=== PATIENT | female | born 1950 | race African-American/Black ===

== ENCOUNTER 2017-06-17 08:59 | Day surgery (SDC) | payer OTHER, BC ==
[2017-06-15 15:40] VITALS: BMI 25.8
[~2017-06-17 08:59] MED LIST: ACETAMINOPHEN 325 MG TABLET (FP) PO PRN
[2017-06-17] MEDS ORDERED: CYCLOPENTOLATE HCL 1% OPHTH SOLN 2 ML BOTTLE ONE (09:16)
[2017-06-17] MEDS ORDERED: TROPICAMIDE 1% OPHTH SOLN 15 ML BOTTLE ONE (09:16)
[2017-06-17] MEDS ORDERED: PHENYLEPHRINE 2.5% OPHTH SOLN 15 ML BOTTLE ONE (09:16)
[2017-06-17] MEDS ORDERED: FLURBIPROFEN 0.03% OPHTH SOLN 2.5 ML BOTTLE ONE (09:16)
[2017-06-17] MEDS ORDERED: CIPROFLOXACIN 0.3% EYE DROPS 5 ML BOTTLE ONE (09:16)
[2017-06-17] MEDS: FLURBIPROFEN 0.03% OPHTH SOLN 2.5 ML BOTTLE OP SCH ×2 (09:50→09:55)
[2017-06-17] MEDS: CYCLOPENTOLATE HCL 1% OPHTH SOLN 2 ML BOTTLE OP SCH ×2 (09:50→09:55)
[2017-06-17] MEDS: CIPROFLOXACIN HCL 0.3% OPHTH 2.5ML BOTTLE OP SCH ×2 (09:50→09:55)
[2017-06-17] MEDS: TROPICAMIDE 1% OPHTH SOLN 15 ML BOTTLE OP SCH ×2 (09:50→09:55)
[2017-06-17] MEDS: PHENYLEPHRINE 2.5% OPHTH SOLN 15 ML BOTTLE OP SCH ×2 (09:50→09:55)
[2017-06-17] MEDS ORDERED: TETRACAINE 0.5% OPHTH SOLN 2 ML BOTTLE OS ONE (10:04)
[2017-06-17] MEDS ORDERED: POVIDONE-IODINE 5% OPHTHALMIC PREP 30 ML SOLUTION OS ONE (10:05)
[2017-06-17] MEDS ORDERED: MIDAZOLAM HCL 2 MG/2 ML SINGLE DOSE VIAL ONE (10:05)
[2017-06-17] MEDS ORDERED: BSS (NA/CA/MG/K) BALANCED SALT SOLUTION OPHTH SOLN 15 ML BOTTLE OS ONE (10:13)
[2017-06-17] MEDS ORDERED: LIDOCAINE HCL 1% PRESERVATIVE FREE - 30ML VIAL IO ONE (10:13)
[2017-06-17] MEDS ORDERED: CHONDROITIN SU A/HYALUR SOD 1 KIT IO ONE (10:13)
[2017-06-17] MEDS ORDERED: EPINEPHrine/PF 1 MG/1 ML (1:1,000) AMPULE IO ONE (10:18)
[2017-06-17 10:56] VITALS: TEMP 98.1
[2017-06-17 14:35] VITALS: BP 157/82; PULSE 66
--- NOTE | 2017-06-18 09:28 | SPEC ---
DATE OF OPERATION: 06/17/2017 OPERATION: Phacoemulsification with posterior chamber intraocular lens implantation, left eye. Lens used [id number], 26.0 Diopter power, Serial No. [id number]. PREOPERATIVE DIAGNOSIS: Cataract, left eye. POSTOPERATIVE DIAGNOSIS: Cataract, left eye. SURGEON: Faisal Baltazar M.D. ANESTHESIA: Topical MAC. COMPLICATIONS: None. PROCEDURE: The patient was brought to the operating room and correctly identified along with the operative site and the correct intraocular lens you. The patient was then prepped and draped in the usual sterile fashion including 5% Betadine solution in the conjunctival sac and an eyelid drape. An eyelid speculum was then placed in the eye. A paracentesis port was created and approximately 0.5 mL of preservative free Lidocaine was then injected into the eye. Viscoelastic was then injected to inflate the anterior chamber. A temporal clear corneal wound was created. A continuous circular capsulorrhexis was performed. The nucleus was then hydrodissected with BSS and removed with phacoemulsification. The remaining cortical material was irrigated and aspirated. Viscoelastic was injected to inflate the capsular bag and the intraocular lens was then implanted into the capsular bag. The remaining Viscoelastic was irrigated and aspirated from the eye. The IOL was noted to be well centered and completely covered by the anterior capsulorrhexis. Topical vancomycin was placed and the eye patched and shielded. All wounds were tested and found to be watertight. No suture was placed. The eye was then shielded. The patient was then discharged from the operating room in stable condition. FAISAL BALTAZAR M.D. [id number]
== END 2017-06-17 11:30 | disposition home or self-care (01) ==
LOC: JASU-SURG 08:59
PROVIDERS: ATTEND Ophthalmology
PROC: 08RK3JZ Replacement of Left Lens with Synthetic Substitute, Percutaneous Approach (ICD-10-PCS; principal; 2017-06-17 10:00)
DX: H26.9 Unspecified cataract (principal)

== ENCOUNTER 2017-07-08 09:33 | Day surgery (SDC) | payer OTHER, BC ==
[2017-07-02 11:53] VITALS: BMI 28.3
[~2017-07-08 09:33] MED LIST changes: +CIPROFLOXACIN HCL 0.3% OPHTH 2.5ML BOTTLE OP SCH; +CYCLOPENTOLATE HCL 1% OPHTH SOLN 2 ML BOTTLE OP SCH; +FLURBIPROFEN 0.03% OPHTH SOLN 2.5 ML BOTTLE OP SCH; +PHENYLEPHRINE 2.5% OPHTH SOLN 15 ML BOTTLE OP SCH; +TROPICAMIDE 1% OPHTH SOLN 15 ML BOTTLE OP SCH
[2017-07-08] MEDS ORDERED: CIPROFLOXACIN 0.3% EYE DROPS 5 ML BOTTLE ONE (09:49)
[2017-07-08] MEDS ORDERED: TROPICAMIDE 1% OPHTH SOLN 15 ML BOTTLE ONE (09:49)
[2017-07-08] MEDS ORDERED: CYCLOPENTOLATE HCL 1% OPHTH SOLN 2 ML BOTTLE ONE (09:49)
[2017-07-08] MEDS ORDERED: FLURBIPROFEN 0.03% OPHTH SOLN 2.5 ML BOTTLE ONE (09:50)
[2017-07-08] MEDS ORDERED: PHENYLEPHRINE 2.5% OPHTH SOLN 15 ML BOTTLE ONE (09:50)
[2017-07-08 09:55] VITALS: TEMP 97.6
[2017-07-08] MEDS ORDERED: FLURBIPROFEN 0.03% OPHTH SOLN 2.5 ML BOTTLE OD ONE ×3 (10:45→11:05)
[2017-07-08] MEDS ORDERED: PHENYLEPHRINE 2.5% OPHTH SOLN 15 ML BOTTLE OD ONE ×3 (10:45→11:05)
[2017-07-08] MEDS ORDERED: TROPICAMIDE 1% OPHTH SOLN 15 ML BOTTLE OD ONE ×3 (10:45→11:05)
[2017-07-08] MEDS ORDERED: CIPROFLOXACIN HCL 0.3% OPHTH 2.5ML BOTTLE OD ONE ×3 (10:45→11:05)
[2017-07-08] MEDS ORDERED: CYCLOPENTOLATE HCL 1% OPHTH SOLN 2 ML BOTTLE OD ONE ×3 (10:45→11:05)
[2017-07-08] MEDS ORDERED: LIDOCAINE HCL/PF 1% SDV 5ML VIAL ONE (11:34)
[2017-07-08] MEDS ORDERED: TETRACAINE 0.5% OPHTH SOLN 2 ML BOTTLE ONE (11:35)
[2017-07-08] MEDS ORDERED: MIDAZOLAM HCL 2 MG/2 ML SINGLE DOSE VIAL ONE (11:43)
[2017-07-08] MEDS ORDERED: VANCOMYCIN 500 MG VIAL (RESTRICTED TO ID ONLY) ONE (11:53)
[2017-07-08] MEDS ORDERED: WATER FOR INJ,STERILE 10 ML ONE (11:54)
[2017-07-08] MEDS ORDERED: TETRACAINE 0.5% OPHTH SOLN 2 ML BOTTLE TP ONE (11:56)
[2017-07-08] MEDS ORDERED: LIDOCAINE HCL 1% PRESERVATIVE FREE - 30ML VIAL IO ONE (12:02)
[2017-07-08] MEDS ORDERED: CHONDROITIN SU A/HYALUR SOD 1 KIT IO ONE (12:04)
[2017-07-08 13:56] VITALS: BP 161/72; PULSE 73
--- NOTE | 2017-07-08 14:15 | SPEC ---
DATE OF SURGERY: 07/08/2017 OPERATION: Phacoemulsification of right cataract with posterior chamber intraocular lens implantation, right eye. Lens used [id number], 26.0 diopter power, Serial No. [id number]. PREOPERATIVE DIAGNOSIS: Cataract, right eye. POSTOPERATIVE DIAGNOSIS: Cataract, right eye. SURGEON: Faisal Baltazar M.D. ANESTHESIA: Topical MAC. COMPLICATIONS: None. PROCEDURE: The patient was brought to the operating room and correctly identified along with the operative site and the correct intraocular lens you. The patient was then prepped and draped in the usual sterile fashion including 5% Betadine solution in the conjunctival sac and an eyelid drape. An eyelid speculum was then placed in the eye. A paracentesis port was created and approximately 0.5 mL of preservative free Lidocaine was then injected into the eye. Viscoelastic was then injected to inflate the anterior chamber. A temporal clear corneal wound was created. A continuous circular capsulorrhexis was performed. The nucleus was then hydrodissected with BSS and removed with phacoemulsification. The remaining cortical material was irrigated and aspirated. Viscoelastic was injected to inflate the capsular bag and the intraocular lens was then implanted into the capsular bag. The remaining Viscoelastic was irrigated and aspirated from the eye. The IOL was noted to be well centered and completely covered by the anterior capsulorrhexis. Topical vancomycin was placed and the eye patched and shielded. All wounds were tested and found to be watertight. No suture was placed. The eye was then shielded. The patient was then discharged from the operating room in stable condition. FAISAL BALTAZAR M.D. [id number]
== END 2017-07-08 13:25 | disposition home or self-care (01) ==
LOC: JASU-SURG 09:33
PROVIDERS: ATTEND Ophthalmology
PROC: 08RJ3JZ Replacement of Right Lens with Synthetic Substitute, Percutaneous Approach (ICD-10-PCS; principal; 2017-07-08 12:00)
DX: H26.9 Unspecified cataract (principal)

== ENCOUNTER 2019-06-10 08:16 | Day surgery (SDC) | payer OTHER, BC ==
[2019-06-09 17:22] VITALS: BMI 25.7
--- NOTE | 2019-06-10 08:06 | HP ---
Satellite PMH - Chief Complaint Chief Complaint: right humerus fx - Past Medical History Allergies/Adverse Reactions: Allergies Allergy/AdvReac Type Severity Reaction Status Date / Time No Known Allergies Allergy Verified 06/09/19 17:22 - Current Medications Current Medications: Home Medications Medication Instructions Recorded Amlodipine Besylate/Benazepril 1 cap PO DAILY 06/15/17 [Lotrel 5-10 mg Capsule] Atorvastatin Ca [Lipitor] 40 mg PO HS 06/15/17 Metoprolol Succinate [Toprol Xl] 50 mg PO DAILY 06/15/17 Sitagliptin Phos/Metformin HCl 1 each PO BID 06/15/17 [Janumet 50-1,000 mg Tablet] Aspirin Coated [Ecotrin -] 81 mg PO ASDIR 07/02/17 Oxycodone HCl/Acetaminophen 1 - 2 tab PO Q6H #30 tab MDD 6 06/10/19 [Percocet 5-325 mg Tablet] Satellite Physical Exam - Physical Examination General Appearance: Well Nourished, Well Developed, Alert & Oriented x3 ENT: Clear Lung: Normal air movement Extremities: Other (right humerus- + swelliing, + ttp, decr rom, nvi, xrays show pathologic humeral shaft fx) Neurological: Intact, Alert, Oriented Satellite Impression/Plan - Impression/Plan Impression: right pathologic humeral shaft fx Operative Procedure: right humerus IM ángel Date to be Performed: 06/10/19
[2019-06-10] MEDS ORDERED: MIDAZOLAM HCL 2 MG/2 ML SINGLE DOSE VIAL ONE ×2 (09:46)
[2019-06-10] MEDS ORDERED: DEXAMETHASONE SOD PHOSPHATE/PF 10 MG/ML SDV ONE (09:49)
[2019-06-10] MEDS ORDERED: ROCURONIUM BROMIDE 50 MG/5 ML SYRINGE ONE (10:17)
[2019-06-10] MEDS ORDERED: PROPOFOL 20 ML ONE (10:17)
[2019-06-10] MEDS ORDERED: ceFAZolin SODIUM 1 GM VIAL IVPB ONE (10:35)
[2019-06-10] MEDS ORDERED: NEOSTIGMINE METHYLSULFATE 0.5 MG/ML - 10 ML MDV ONE (11:49)
[2019-06-10] MEDS ORDERED: DEXAMETHASONE SOD PHOSPHATE 4 MG/1 ML VIAL ONE (11:49)
[2019-06-10] MEDS ORDERED: GLYCOPYRROLATE 0.2 MG/1 ML VIAL ONE (11:49)
--- NOTE | 2019-06-10 12:01 | OP ---
Operative Note - Note: Operative Date: 06/10/19 ([facility]) Pre-Operative Diagnosis: right pathologic humeral shaft fx Operation: right humerus open bone biopsy, IM ángel Post-Operative Diagnosis: Same as Pre-op Surgeon: Christian Arenas Salt Maker: Carlos Nathan Anesthesiologist/BOBBIN DOFFER: Shreya Son MD Anesthesia: General, Local Specimens Removed: bone biopsy, canal reamings Estimated Blood Loss (mls): 50
[2019-06-10] MEDS ORDERED: PROMETHAZINE HCL 25 MG/1 ML VIAL IVPB PRN (12:18)
[2019-06-10] MEDS ORDERED: oxyCODONE HCL 5 MG TABLET PO PRN (12:18)
[2019-06-10] MEDS ORDERED: ONDANSETRON 4 MG/2 ML VIAL IVPUSH PRN (12:18)
[2019-06-10] MEDS ORDERED: LACTATED RINGERS SOLUTION 1,000 ML IV SCH (12:30)
[2019-06-10] MEDS ORDERED: ceFAZolin 2 GRAM PREMIX BAG IVPB ONE (15:00)
[2019-06-10 20:13] VITALS: BP 138/81; PULSE 83; TEMP 98.1
== END 2019-06-10 18:30 | disposition home or self-care (01) ==
LOC: JASU-SURG 08:16
PROVIDERS: ATTEND Orthopaedic Surgery
PROC: 0PBF0ZX Excision of Right Humeral Shaft, Open Approach, Diagnostic (ICD-10-PCS; 2019-06-10)
PROC: 0PSF06Z Reposition Right Humeral Shaft with Intramedullary Internal Fixation Device, Open Approach (ICD-10-PCS; principal; 2019-06-10 10:54)
DX: M84.421A Pathological fracture, right humerus, initial encounter for fracture (principal)
CPT/HCPCS: 20245; 24516; C1713; 76000-TC-FY; 82962; 94760

== ENCOUNTER 2020-01-03 08:58 | Inpatient (IN) | payer OTHER, BC ==
--- NOTE | 2020-01-03 09:02 | PDOC ---
Rapid Medical Evaluation Time Seen by Provider: 01/03/20 09:01 Medical Evaluation: Allergies Allergy/AdvReac Type Severity Reaction Status Date / Time No Known Allergies Allergy Verified 06/09/19 17:22 01/03/20 09:01 CC: sent by dr white for elevated calciuma and multiple fractures in the spine. Pt denies injury but states is unable to ambulate due to the pain Exam: vss Plan: iv, labs Discharge Disposition - Diagnosis Spine fracture - Referrals - Patient Instructions - Post Discharge Activity
[2020-01-03] MEDS ORDERED: morphine CARPU-JECT 2 MG/1 ML DISP.SYRIN IVPUSH ONE (09:08)
--- NOTE | 2020-01-03 10:04 | PDOC ---
History of Present Illness - General Chief Complaint: Bone Injury Stated Complaint: SENT BY Time Seen by Provider: 01/03/20 09:01 History Source: Patient Exam Limitations: No Limitations - History of Present Illness Initial Comments: 01/03/20 09:57 69 PMH of HTN, HLD, DM, recently diagnosed MM (follows with Dr. Lerma, no treatment started) presents to the ED under the direction of Dr Lerma for multiple T-L spine compression fractures and back pain. Pt states the pain is located midline T spine-L spine, started 3 weeks ago and progressively worsened. States over the last 1 week she has been unable to ambulate due to significant pain. Pt also admits to some loss of urine over the past 1 week. Pt denies weakness/numbness into her lower ext, denies incontinence or retention of stool, denies saddle anesthesia,denies abdominal pain. Pt denies CP, SOB, F/C/N/V, sick contacts, calf swelling, calf tenderness or recent travel. Past History - Medical History Allergies/Adverse Reactions: Allergies Allergy/AdvReac Type Severity Reaction Status Date / Time No Known Allergies Allergy Verified 01/03/20 10:49 Home Medications: Ambulatory Orders Amlodipine Besylate/Benazepril [Lotrel 5-10 mg Capsule] 1 cap PO DAILY 06/15/17 Atorvastatin Ca [Lipitor] 40 mg PO HS 06/15/17 Metoprolol Succinate [Toprol Xl] 50 mg PO DAILY 06/15/17 Sitagliptin Phos/Metformin HCl [Janumet 50-1,000 mg Tablet] 1 each PO BID 06/15/17 Aspirin Coated [Ecotrin -] 81 mg PO ASDIR 07/02/17 Ibuprofen [Motrin -] 400 mg PO PRN 01/03/20 Anemia: No Asthma: No Cancer: Yes Cardiac Disorders: No CVA: No COPD: No CHF: No Dementia: No Diabetes: Yes GI Disorders: No Disorders: No HTN: Yes Hypercholesterolemia: Yes Liver Disease: No Seizures: No Thyroid Disease: No - Surgical History Abdominal Surgery: No Appendectomy: No Cholecystectomy: Yes Lung Surgery: No Neurologic Surgery: No Orthopedic Surgery: No - Psycho-Social/Smoking History Smoking History: Never smoked Have you smoked in the past 12 months: No - Substance Abuse Hx (Audit-C & DAST Scrn) How often the patient has a drink containing alcohol: Never Score: In Men: 4 or > Positive; In Women: 3 or > Positive: 0 Screen Result (Pos requires Nsg. Audit-10AR): Negative In the last yr the pt used illegal drug/Rx for NonMed reason: No Score: Yes response is considered Positive: 0 Screen Result (Positive result requires Nsg. DAST-10): Negative Review of Systems - Review of Systems Constitutional: Yes: Symptoms Reported HEENTM: Yes: Symptoms Reported Respiratory: Yes: Symptoms reported Cardiac (ROS): Yes: Symptoms Reported ABD/GI: Yes: Symptoms Reported : Yes: Symptoms Reported Musculoskeletal: Yes: Symptoms Reported Integumentary: Yes: Symptoms Reported Neurological: Yes: Symptoms reported *Physical Exam - Vital Signs Last Vital Signs Temp Pulse Resp BP Pulse Ox 98.3 F 96 H 18 196/86 H 96 01/03/20 09:02 01/03/20 09:02 01/03/20 09:02 01/03/20 09:02 01/03/20 09:02 - Physical Exam General Appearance: Yes: Nourished, Appropriately Dressed, Apparent Distress HEENT: positive: EOMI Neck: positive: Supple. negative: Carotid bruit Respiratory/Chest: positive: Lungs Clear, Normal Breath Sounds. negative: Respiratory Distress, Accessory Muscle Use, Rapid RR, Crackles, Rales, Rhonchi, Stridor, Wheezing Cardiovascular: positive: Regular Rhythm, Regular Rate, S1, S2. negative: Edema, JVD, Murmur Vascular Pulses: Dorsalis-Pedis (R): 4+, Doralis-Pedis (L): 4+ Gastrointestinal/Abdominal: positive: Flat, Soft. negative: Pulsatile Mass, Protuberent, Distended, Guarding, Rebound, Tenderness Musculoskeletal: positive: Vertebral Tenderness (T5-Coccyx). negative: CVA Tenderness Extremity: positive: Normal Capillary Refill, Normal Inspection, Normal Range of Motion Integumentary: positive: Normal Color, Dry, Warm Neurologic: positive: Fully Oriented, Alert, Normal Mood/Affect, Normal Response, Motor Strength 5/5, Other (no saddle anesthesia, rectal tone normal, sensation and strength intact and equal bilateral lowr ext). negative: Sensory Deficit, Confused, Disoriented ED Treatment Course - LABORATORY CBC & Chemistry Diagram: 01/03/20 10:00 01/03/20 10:00 - RADIOLOGY Radiology Studies Ordered: Category Date Time Status CHEST X-RAY PORTABLE* [RAD] Stat Radiology 01/03/20 09:52 Ordered Medical Decision Making - Medical Decision Making 01/03/20 12:04 69 PMH of HTN, HLD, DM, recently diagnosed MM (follows with Dr. Lerma, no treatment started) presents to the ED under the direction of Dr Lerma for multiple T-L spine compression fractures and back pain. Pt states the pain is located midline T spine-L spine, started 3 weeks ago and progressively worsened. States over the last 1 week she has been unable to ambulate due to significant pain. Pt also admits to some loss of urine over the past 1 week. Pt denies weakness/numbness into her lower ext, denies incontinence or retention of stool, denies saddle anesthesia,denies abdominal pain. Pt denies CP, SOB, F/C/N/V, sick contacts, calf swelling, calf tenderness or recent travel. vitals stable See MRI report 2 mg Morphine given, pain controlled labs sent and will control pt pain along with speaking with Dr. Lerma Labs show corrected Ca 13.4, recent labs also show Ca over 12. Will hydrate and discuss with primary team Florentin Morrell contacted, states Dr. Chase will see the patient in the hospital for hemonc and Rad Onc will be consulted, also states NS at a rate of 200 ml/hour for hypercalcemia should be given Discussed case in its entirety with Dr. Mackenzie in [place] who also reviewed images, states that there is no surgical intervention required at this time. The patient urinating on herself is likely a result of pain and difficulty ambulating in time to the bathroom No saddle anesthesia, 5/5 strenth and sensation bilateral lower ext, normal rectal tone Pt accepted for admission Discharge - Discharge Information Problems reviewed: Yes Clinical Impression/Diagnosis: Spine fracture - Admission Yes - Follow up/Referral Referrals: Ofelia Will [Primary Care Provider] - - Patient Discharge Instructions - Post Discharge Activity
[2020-01-03] MEDS ORDERED: MORPHINE SULFATE 2 MG/ML VIAL ONE (10:06)
[2020-01-03 10:16] LABS: EOS % 0.1 % (0-4.5); HEMATOCRIT 25.3 % (32.4-45.2); HEMOGLOBIN 8.4 GM/dL (10.7-15.3); MCH 28.7 pg (25.7-33.7); MCHC 33.3 g/dl (32.0-36.0); MEAN CELL VOLUME 86.1 fl (80-96); MEAN PLT VOLUME 7.2 fl (7.5-11.1); MONO % 7.6 % (3.8-10.2); NEUT % 77.3 % (42.8-82.8); PLATELET COUNT 283 K/MM3 (134-434); RBC 2.94 M/mm3 (3.60-5.2); RDW 15.4 % (11.6-15.6); WHITE BLOOD COUNT 9.5 K/mm3 (4.0-10.0)
[2020-01-03 10:23] LABS: INR 1.03 (0.83-1.09); PROTHROMBIN TIME (PATIENT) 12.2 SEC (9.7-13.0)
[2020-01-03 10:44] LABS: ALBUMIN 3.3 g/dl (3.4-5.0); BILIRUBIN,TOTAL 0.3 mg/dL (0.2-1); BLOOD UREA NITROGEN 24.4 mg/dL (7-18); CALCIUM 12.8 mg/dL (8.5-10.1); CREATININE 1.2 mg/dL (0.55-1.3); POTASSIUM 3.3 mmol/L (3.5-5.1); TOT PROT 8.4 g/dl (6.4-8.2)
--- NOTE | 2020-01-03 10:54 | PDOC ---
Documentation entered by Salomon Fishman SCRIBE, acting as scribe for Mireille Emery MD. Mireille Emery MD: This documentation has been prepared by the Kye turpin Xhesika, SCRIBE, under my direction and personally reviewed by me in its entirety. I confirm that the documentation accurately reflects all work, treatment, procedures, and medical decision making performed by me. Attending Attestation - Resident Resident Name: Clyde Eastman - ED Attending Attestation I have performed the following: I have examined & evaluated the patient, The case was reviewed & discussed with the resident, I agree w/resident's findings & plan, Exceptions are as noted - HPI HPI: 01/03/20 09:37 The patient is a 69y/o F with a PMH of HTN, HLD, DM, recently diagnosed multiple myeloma (follows with Dr. Lerma) who presents to the ED advised by Dr. Lerma for midline back pain. Pt states she had a MRI done 2 days ago that showed, T4,T11, L4-L5 compression fractures. Pt reports 1 week of urinary frequency and incontinence. Pt states she has not been able to ambulate secondary to the pain. The patient denies chest pain, shortness of breath, headache and dizziness. Denies fever, chills, cough, nausea, vomiting, diarrhea and constipation. Denies dysuria and hematuria. Allergies: NKDA PCP: Neema Booker Oncologist: Dr. Lerma - Physicial Exam PE: 01/03/20 10:41 Agree with resident exam - Medical Decision Making 01/03/20 10:41 69yo F with MMP including multiple myeloma presents to the ED with newly diagnosed thoracolumbar pathologic fractures and possible hypercalcemia No cord compression on recent MRI, but pt reporting urine urgency vs incontinence Pt sent to ED by Dr. Lerma Vitals with hypertension, likely 2/2 pain Plan to repeat labs, check UA, control pain, discuss with neurosurgery and Dr. Lerma Ca corrected is 13.4, fluids started at 200cc/hr Recent blood work with calcium only slightly lower indicative of slow rising level - as such will hold off on bisphosphnates/calcitonin in absence of AMS or other sxs. Pt currently being evaluated by Dr. Finley Case discussed with Dr. Mccurdy, imaging reviewed with him in consultation Recommends non-operative management, pain control Recommendations relayed to hospitalist Pt admitted for further mgmt/w/u Case discussed in detail with admitting physician including history, physical exam and ancillary studies. Admitting physician has assumed care for the patient, will follow all pending diagnostics and will complete the evaluation and treatment. Heart Score/ECG Review #1 01/03/20 10:53 EKG read and int by me: NSR, rate 87. Normal axis and intervals, no CHRISTA Discharge - Discharge Information Problems reviewed: Yes Clinical Impression/Diagnosis: Spine fracture - Follow up/Referral - Patient Discharge Instructions - Post Discharge Activity
[2020-01-03] MEDS ORDERED: SODIUM CHLORIDE 1,000 ML IV STA (11:15)
--- NOTE | 2020-01-03 11:17 | EKG ---
Test Reason : Blood Pressure : / mmHG Vent. Rate : 087 BPM Atrial Rate : 087 BPM P-R Int : 172 ms QRS Dur : 092 ms QT Int : 354 ms P-R-T Axes : 044 -14 043 degrees QTc Int : 425 ms NORMAL SINUS RHYTHM POSSIBLE LEFT ATRIAL ENLARGEMENT LEFT VENTRICULAR HYPERTROPHY ABNORMAL ECG WHEN COMPARED WITH ECG OF 01-JUN-2019 15:28, NO SIGNIFICANT CHANGE WAS FOUND Confirmed by MD SAMARA, JUAN JOSÉ ([id number]) on 01/03/2020 11:17:02 AM Referred By: Confirmed By:JUAN JOSÉ PASCUAL MD
[2020-01-03] MEDS ORDERED: SODIUM CHLORIDE 1,000 ML IV SCH (11:45)
--- NOTE | 2020-01-03 12:10 | HP ---
Admitting History and Physical - Primary Care Physician PCP: unk - Admission Chief Complaint: Pathologic spinal compression fx History of Present Illness: 69 past medical history of hypertension, hyperlipidemia, diabetes, recently diagnosed multiple myeloma (follows with Dr. Lerma) presents to the ED on the advice of Dr. Lerma for midline back pain. Patient had an MRI done 2 days ago that showed multiple compression fractures at T11, L4-L5 without spinal cord impingement. The patient is unable to walk due to the pain. She states she has had urinary incontinence: On upon further questioning she states that she is aware she is going to the bathroom but has been in too much pain to get out of bed to go to the bathroom. On exam sensation and strength are both intact in the bilateral extremities. In the ED vital signs significant for pulse of 96, blood pressure 196/86. Labs significant for hemoglobin 8.4, potassium 3.3, corrected calcium 13.4. Patient admitted for being unable to ambulate due to intractable back pain in the setting of multiple pathologic fractures secondary to multiple myeloma. History Source: Patient, Medical Record Limitations to Obtaining History: No Limitations - Past Medical History Cardiovascular: Yes: HTN Heme/Onc: Yes: Myeloproliferative Synd Endocrine: Yes: Diabetes Mellitus - Smoking History Smoking history: Never smoked Have you smoked in the past 12 months: No - Alcohol/Substance Use Hx Alcohol Use: No Home Medications - Allergies Allergies/Adverse Reactions: Allergies Allergy/AdvReac Type Severity Reaction Status Date / Time No Known Allergies Allergy Verified 01/03/20 10:49 - Home Medications Home Medications: Ambulatory Orders Amlodipine Besylate/Benazepril [Lotrel 5-10 mg Capsule] 1 cap PO DAILY 06/15/17 Atorvastatin Ca [Lipitor] 40 mg PO HS 06/15/17 Metoprolol Succinate [Toprol Xl] 50 mg PO DAILY 06/15/17 Sitagliptin Phos/Metformin HCl [Janumet 50-1,000 mg Tablet] 1 each PO BID 06/15/17 Aspirin Coated [Ecotrin -] 81 mg PO ASDIR 07/02/17 Ibuprofen [Motrin -] 400 mg PO PRN 01/03/20 Family Medical History Family Hx Cardiac Disorders: Mother Review of Systems Findings/Remarks: 10 point ROS negative except for HPI Physical Examination Vital Signs: Vital Signs Temperature 98.7 F 01/03/20 11:30 Pulse Rate 89 01/03/20 11:30 Respiratory Rate 18 01/03/20 11:30 Blood Pressure 183/83 H 01/03/20 11:30 O2 Sat by Pulse Oximetry (%) 97 01/03/20 11:30 Constitutional: Yes: Well Nourished, No Distress, Calm HENT: Yes: WNL, Atraumatic, Normocephalic Cardiovascular: Yes: Regular Rate and Rhythm Respiratory: Yes: WNL, Regular, CTA Bilaterally Gastrointestinal: Yes: WNL, Normal Bowel Sounds, Soft Extremities: Yes: WNL Edema: No Peripheral Pulses WNL: Yes Neurological: Yes: Alert, Oriented, Cran Nerves II-XII Intact ...Motor Strength: WNL Psychiatric: Yes: Alert, Oriented Labs: CBC, BMP 01/03/20 10:00 01/03/20 10:00 Imaging - Results Chest X-ray: Report Reviewed MRI: Report Reviewed Problem List - Problems (1) Spine fracture Code(s): [id number] - Assessment/Plan 69 past medical history of hypertension, hyperlipidemia, diabetes, recently diagnosed multiple myeloma (follows with Dr. Lerma) presents to the ED on the advice of Dr. Lerma for midline back pain. Patient had an MRI done 2 days ago that showed multiple compression fractures at T11, L4-L5 without spinal cord impingement. Patient admitted for being unable to ambulate due to intractable back pain in the setting of multiple pathologic fractures secondary to multiple myeloma. #Unable to ambulate secondary to pain and pathologic spinal fractures Minimal concern for spinal compression, urinary incontinence appears to be due to being unable to ambulate to the bathroom in the setting of pain Pain management consulted Neurosurgery consulted: Dr. Lorenzo to see Patient reports pain controlled at rest after receiving morphine in the ED Oncology on board #Multiple myeloma with hypercalcemia and multiple pathologic fractures Patient does not appear to have symptomatic hypercalcemia at this time. Denies constipation or mental symptoms Start fluids at 150 cc/h. Will hold on calcitonin at this time Nephrology consult (Dr. Finley) #Hypertensive urgency Continue home amlodipine and metoprolol We will reassess vitals after patient takes her home medications and pain control #HLD -cont home statin #DM -MAICOL -hold home PO meds -check A1C -start standing long acting insulin tomorrow Visit type - Emergency Visit Emergency Visit: Yes Care time: The patient presented to the Emergency Department on the above date and was hospitalized for further evaluation of their emergent condition. - New Patient This patient is new to me today: Yes Date on this admission: 01/03/20 - Critical Care Critical Care patient: No
[2020-01-03] MEDS ORDERED: PATIENT'S OWN MEDICATION (NON-FORMULARY) (Amlodipine Besylate/Benazepril [Lotrel 5-10 Mg C PO SCH (12:30)
[2020-01-03] MEDS ORDERED: amLODIPine BESYLATE 5 MG TABLET (FP) ONE (12:45)
[2020-01-03] MEDS ORDERED: LISINOPRIL 5 MG TABLET (FP) ONE (12:45)
[2020-01-03] MEDS: SODIUM CHLORIDE 1,000 ML IV SCH (12:51)
[2020-01-03] MEDS: amLODIPine BESYLATE 5 MG TABLET (FP) PO SCH (12:51)
[2020-01-03] MEDS: LISINOPRIL 10 MG TABLET (FP) PO SCH (12:52)
[2020-01-03] MEDS: ENOXAPARIN NA (PORCINE) 40 MG/0.4 ML DISP.SYRIN SQ SCH (12:54)
[2020-01-03] MEDS ORDERED: ENOXAPARIN NA (PORCINE) 40 MG/0.4 ML DISP.SYRIN SQ ONE (12:55)
[2020-01-03 13:49] LABS: PHOSPHOROUS 3.3 mg/dL (2.5-4.9); URIC ACID 7.4 mg/dL (2.6-7.2)
--- NOTE | 2020-01-03 14:03 | CON.HO ---
Consult Consult Specialty:: Hematology Reason for Consultation:: Multiple Myeloma - History of Present Illness History of Present Illness: 69 y/ o lady recently diagnosed with multiple myeloma (follows with Dr. Lerma) sent to ED by Dr. Lerma for midline back pain. Patient had an MRI done 2 days ago that showed multiple compression fractures at T11, L4-L5 without spinal cord impingement. The patient is unable to walk due to the pain. She states she has had urinary incontinence however this was due to the inability to go to the restroom due to pain rather than true incontinence. Acknowledges to 04/14 pain and it has been worsening recently - History Source History Provided By: Patient - Past Medical History Cardio/Vascular: Yes: HTN, Hyperlipdemia Endocrine: Yes: Diabetes Mellitus - Alcohol/Substance Use Hx Alcohol Use: No - Smoking History Smoking history: Never smoked Have you smoked in the past 12 months: No Home Medications - Allergies Allergies/Adverse Reactions: Allergies Allergy/AdvReac Type Severity Reaction Status Date / Time No Known Allergies Allergy Verified 01/03/20 10:49 - Home Medications Home Medications: Ambulatory Orders Amlodipine Besylate/Benazepril [Lotrel 5-10 mg Capsule] 1 cap PO DAILY 06/15/17 Atorvastatin Ca [Lipitor] 40 mg PO HS 06/15/17 Metoprolol Succinate [Toprol Xl] 50 mg PO DAILY 06/15/17 Sitagliptin Phos/Metformin HCl [Janumet 50-1,000 mg Tablet] 1 each PO BID 06/15/17 Aspirin Coated [Ecotrin -] 81 mg PO ASDIR 07/02/17 Ibuprofen [Motrin -] 400 mg PO PRN 01/03/20 Review of Systems - Review of Systems Constitutional: reports: No Symptoms Eyes: reports: No Symptoms HENT: reports: No Symptoms Neck: reports: No Symptoms Cardiovascular: reports: No Symptoms Respiratory: reports: No Symptoms Gastrointestinal: reports: No Symptoms Genitourinary: reports: No Symptoms Musculoskeletal: reports: Back Pain Physical Exam Vital Signs: Vital Signs Temperature 98.7 F 01/03/20 11:30 Pulse Rate 89 01/03/20 11:30 Respiratory Rate 18 01/03/20 11:30 Blood Pressure 183/83 H 01/03/20 11:30 O2 Sat by Pulse Oximetry (%) 97 01/03/20 11:30 Constitutional: Yes: Well Nourished, Mild Distress Eyes: Yes: WNL, Conjunctiva Clear HENT: Yes: WNL, Atraumatic, Normocephalic Neck: Yes: WNL, Supple, Trachea Midline Cardiovascular: Yes: WNL, Regular Rate and Rhythm Respiratory: Yes: WNL, Regular, CTA Bilaterally Gastrointestinal: Yes: WNL, Normal Bowel Sounds, Soft Musculoskeletal: Yes: Back Pain Labs: CBC, BMP 01/03/20 10:00 01/03/20 10:00 Assessment/Plan 69 y/ o lady recently diagnosed with multiple myeloma (follows with Dr. Lerma) sent to ED by Dr. Lerma for midline back pain. Patient had an MRI done 2 days ago that showed multiple compression fractures at T11, L4-L5 without spinal cord impingement. The patient is unable to walk due to the pain. She states she has had urinary incontinence however this was due to the inability to go to the restroom due to pain rather than true incontinence. Acknowledges to 10/10 pain and it has been worsening recently. Dr. Lerma has planned to start her on systemic therapy previously. Recommend: 1) Consult Radiation Oncology (Dr. Chester) 2) Agree with nephrology evaluation and IVF for hypercalcemia. In the future may consider use of bisphosphonates if appropriate. 3) After Rad-Onc input will consider starting CyBorD chemotherapy (Cyclophosphamide, Bortezomib and Dexamethasone). 4) Thank you for this consultation
[2020-01-03] MEDS: INSULIN SLIDING SCALE (NOVOLOG) 1 VIAL SQ SCH (16:19)
[2020-01-03] MEDS: MORPHINE SULFATE 2 MG/ML VIAL IVPUSH PRN ×2 (17:30→22:42)
--- NOTE | 2020-01-03 18:46 | CONSULT ---
Consult Consult Specialty:: Nephrology Reason for Consultation:: hypercalcemia - History of Present Illness Chief Complaint: back pain History of Present Illness: Pt is a 69 year old female with pmhx of multiple myeloma, htn, hld, dm who was sent in for compression fractures. She has been having back pain and outpt MRI revealed compression fractures. She denies shortness of breath or palpitations. She denies fevers or chills. She denies history of kidney disease. She complains of generalized weakness. SHe denies headache. - History Source History Provided By: Patient, Medical Record - Past Medical History Cardio/Vascular: Yes: HTN, Hyperlipdemia ...: No Endocrine: Yes: Diabetes Mellitus - Alcohol/Substance Use Hx Alcohol Use: No - Smoking History Smoking history: Never smoked Have you smoked in the past 12 months: No Home Medications - Allergies Allergies/Adverse Reactions: Allergies Allergy/AdvReac Type Severity Reaction Status Date / Time No Known Allergies Allergy Verified 01/03/20 10:49 - Home Medications Home Medications: Ambulatory Orders Amlodipine Besylate/Benazepril [Lotrel 5-10 mg Capsule] 1 cap PO DAILY 06/15/17 Atorvastatin Ca [Lipitor] 40 mg PO HS 06/15/17 Metoprolol Succinate [Toprol Xl] 50 mg PO DAILY 06/15/17 Sitagliptin Phos/Metformin HCl [Janumet 50-1,000 mg Tablet] 1 each PO BID 06/15/17 Aspirin Coated [Ecotrin -] 81 mg PO ASDIR 07/02/17 Ibuprofen [Motrin -] 400 mg PO PRN 01/03/20 Family Medical History Family History: Denies Review of Systems - Review of Systems Constitutional: reports: Malaise Eyes: reports: No Symptoms HENT: reports: No Symptoms Neck: reports: No Symptoms Cardiovascular: reports: No Symptoms Respiratory: reports: No Symptoms Gastrointestinal: reports: No Symptoms Genitourinary: reports: No Symptoms Musculoskeletal: reports: Back Pain Integumentary: reports: No Symptoms Neurological: reports: No Symptoms Endocrine: reports: No Symptoms Hematology/Lymphatic: reports: No Symptoms Psychiatric: reports: No Symptoms Physical Exam Vital Signs: Vital Signs Temperature 99.0 F 01/03/20 17:50 Pulse Rate 93 H 01/03/20 17:50 Respiratory Rate 20 01/03/20 17:50 Blood Pressure 192/79 H 01/03/20 17:50 O2 Sat by Pulse Oximetry (%) 95 01/03/20 17:50 Constitutional: Yes: Calm Eyes: Yes: Conjunctiva Clear HENT: Yes: Atraumatic Neck: Yes: Supple Cardiovascular: Yes: S1, S2 Respiratory: Yes: CTA Bilaterally Gastrointestinal: Yes: Soft Renal/: Yes: WNL Musculoskeletal: Yes: WNL Edema: No Neurological: Yes: Oriented Psychiatric: Yes: Oriented Labs: CBC, BMP 01/03/20 10:00 01/03/20 10:00 Laboratory Tests 06/01/19 08/08/19 12/28/19 15:40 12:06 13:52 Calcium 9.7 10.0 12.3 H Albumin COVID-19 (TOM) 01/03/20 01/03/20 10:00 10:35 Calcium 12.8 H Albumin 3.3 L COVID-19 (TOM) Pending Imaging - Results Chest X-ray: Report Reviewed Problem List - Problems (1) Hypercalcemia Code(s): E83.52 - HYPERCALCEMIA (2) Multiple myeloma Code(s): C90.00 - MULTIPLE MYELOMA NOT HAVING ACHIEVED REMISSION (3) Spine fracture Code(s): HWG1111 - Assessment/Plan Current Medications Generic Name Dose Route Start Last Admin Trade Name Freq PRN Reason Stop Dose Admin Amlodipine Besylate 5 mg 01/03/20 12:30 01/03/20 12:51 Norvasc - PO 5 mg DAILY OTILIA Administration Aspirin 81 mg 01/04/20 10:00 Ecotrin - PO DAILY OTILIA Atorvastatin Calcium 40 mg 01/03/20 22:00 Lipitor - PO HS [facility] Enoxaparin Sodium 40 mg 01/03/20 12:45 01/03/20 12:54 Lovenox - SQ 40 mg DAILY OTILIA Administration Sodium Chloride 1,000 mls @ 150 mls/hr 01/03/20 12:30 01/03/20 12:51 Normal Saline - IV 150 mls/hr ASDIR OTILIA Administration Insulin Aspart 1 vial 01/03/20 16:30 01/03/20 16:19 Novolog Vial Sliding Scale - SQ Not Given TIDAC [facility] Protocol Lisinopril 10 mg 01/03/20 12:30 01/03/20 12:52 Prinivil PO 10 mg DAILY OTILIA Administration Metoprolol Succinate 50 mg 01/03/20 12:30 01/03/20 12:52 Toprol Xl - PO 50 mg DAILY OTILIA Administration Morphine Sulfate 2 mg 01/03/20 12:24 01/03/20 17:30 Morphine Sulfate IVPUSH 2 mg Q2H PRN Administration PAIN LEVEL 7 - 10 Impression 1. hypercalcemia 2. multiple myelpma 3. htn 4. hld 5. dm 6. hypokalemia 7. compression fractures 8. CKD Plan - agree with fluids - monitor clementine after meds - will give zometa - will start calcitionin - give lasix if she develops overload - repeat labs in am - replace potassium - oncology eval - pain will contribute to htn
[2020-01-03] MEDS ORDERED: POTASSIUM CHLORIDE TABS 20 MEQ TABLET.ER (FP) PO ONE (18:51)
[2020-01-03] MEDS ORDERED: CALCITONIN - SALMON SYNTHETIC 400 UNIT/2 ML VIAL IM SCH (19:00)
[2020-01-03] MEDS ORDERED: ZOLEDRONIC ACID 4 MG in SODIUM CHLORIDE 100 ML IVPB ONE (19:00)
[2020-01-03] MEDS: ATORVASTATIN CA 40 MG TABLET (FP) PO SCH (22:42)
[2020-01-04] MEDS: INSULIN SLIDING SCALE (NOVOLOG) 1 VIAL SQ SCH ×3 (06:11→16:38)
[2020-01-04 08:56] LABS: BASO % 0.8 % (0-2.0); EOS % 0.5 % (0-4.5); HEMATOCRIT 24.6 % (32.4-45.2); HEMOGLOBIN 8.1 GM/dL (10.7-15.3); LYMPH % 17.8 % (8-40); MCH 28.5 pg (25.7-33.7); MCHC 32.9 g/dl (32.0-36.0); MEAN CELL VOLUME 86.5 fl (80-96); MEAN PLT VOLUME 7.1 fl (7.5-11.1); MONO % 7.8 % (3.8-10.2); NEUT % 73.1 % (42.8-82.8); PLATELET COUNT 255 K/MM3 (134-434); RBC 2.84 M/mm3 (3.60-5.2); RDW 15.6 % (11.6-15.6); WHITE BLOOD COUNT 8.7 K/mm3 (4.0-10.0)
--- NOTE | 2020-01-04 09:21 | CONSULT ---
Consult Consult Specialty:: Radiation Oncology Referred by:: Dr. Lerma Reason for Consultation:: Vertebral compression fractures - History of Present Illness Chief Complaint: Back pain History of Present Illness: She is a 69 yo woman with hx of multiple myeloma diagnosed in 05/2019 when she presented with pathologic fracture of right humerus s/p IM ángel fixation followed by postop RT (20Gy completed on 10/05/19). She stopped going to PT during the COVID pandemic. She was hospitalized with COVID-19 and recovered. Presents with intemittent mid back pain for a few months, acutely worsening over the past 2 weeks. MRI T-L spine ordered by Dr. Lerma demonstrated vetebral compression fractures (T4, T11, L1, L5) associated with bony retropulsion causing thecal sac impingement at T11 and L1. No cord compression. She was admitted for further management and with hypercalcemia. Started on zometa and calcitonin, back pain is better but still needs assistance getting out of bed to the commode as pain worsens with any movement. Urinary incontinence reportedly because of inability to reach bathroom in time. Pain radiates around abdomen in band-like distribution at umbilicus. Denies numbness, tingling, leg or arm weakness, constipation. Prior RT as noted. Not started on systemic therapy yet. - History Source History Provided By: Patient, Medical Record Limitations to Obtaining History: No Limitations - Past Medical History Cardio/Vascular: Yes: HTN, Hyperlipdemia ...: No Endocrine: Yes: Diabetes Mellitus - Past Surgical History Past Surgical History: Yes: Cholecystectomy Additional Surgical History: Right humerus intramedullary ángel 06/10/19. Bone marrow biopsy 08/30/19 - Alcohol/Substance Use Hx Alcohol Use: No History of Substance Use: reports: None - Smoking History Smoking history: Never smoked Have you smoked in the past 12 months: No - Social History Usual Living Arrangement: With Spouse Home Medications - Allergies Allergies/Adverse Reactions: Allergies Allergy/AdvReac Type Severity Reaction Status Date / Time No Known Allergies Allergy Verified 01/03/20 10:49 - Home Medications Home Medications: Ambulatory Orders Amlodipine Besylate/Benazepril [Lotrel 5-10 mg Capsule] 1 cap PO DAILY 06/15/17 Atorvastatin Ca [Lipitor] 40 mg PO HS 06/15/17 Metoprolol Succinate [Toprol Xl] 50 mg PO DAILY 06/15/17 Sitagliptin Phos/Metformin HCl [Janumet 50-1,000 mg Tablet] 1 each PO BID 06/15/17 Aspirin Coated [Ecotrin -] 81 mg PO ASDIR 07/02/17 Ibuprofen [Motrin -] 400 mg PO PRN 01/03/20 Family Medical History Family Hx Cardiac Disorders: Mother Family Hx Coronary Artery Disease: Brother (No cancer hx) Family Hx Diabetes: Mother Other Family History: No hx of cancer Review of Systems Findings/Remarks: ECOG 3 - Review of Systems Constitutional: reports: No Symptoms Eyes: reports: No Symptoms HENT: reports: No Symptoms Neck: reports: No Symptoms Cardiovascular: reports: No Symptoms Respiratory: reports: No Symptoms Gastrointestinal: reports: No Symptoms Genitourinary: reports: No Symptoms Musculoskeletal: reports: Back Pain Neurological: reports: No Symptoms Pain Intensity: 7 (mid back with movement) Physical Exam Vital Signs: Vital Signs Temperature 99 F 01/04/20 06:00 Pulse Rate 79 01/04/20 06:00 Respiratory Rate 20 01/04/20 06:00 Blood Pressure 162/86 01/04/20 06:00 O2 Sat by Pulse Oximetry (%) 95 01/03/20 21:00 Constitutional: Yes: Well Nourished, No Distress, Calm Eyes: Yes: WNL HENT: Yes: WNL Neck: Yes: WNL Gastrointestinal: Yes: Soft ...Rectal Exam: Yes: Deferred Renal/: Yes: WNL Musculoskeletal: Yes: Back Pain (Tenderness at T11 and L1. No paraspinal or spi nal mass.), Muscle Pain Extremities: Yes: WNL Edema: No Neurological: Yes: Alert, Oriented, Babinski negative, Cran Nerves II-XII Intact, Other (No sensory level, LT intact) ...Motor Strength: WNL (No pronator drift, bilat UE 4+/5, bilat LE 4/5) Psychiatric: Yes: WNL Labs: CBC, BMP 01/04/20 08:20 Imaging - Results MRI: Report Reviewed (See HPI), Image Reviewed Assessment/Plan 69 yo woman with DS stage III multiple myeloma s/p right humerus fracture (IM ángel and postop RT) and progressive spinal disease associated with multiple pa thologic vertebral compression fractures most symptomatic at T11 and L1 where there is thecal sac impingement from bone protrusion. 1. Pain mgt, neurologic monitoring 2. Neurosurgical eval: ? role for spinal decompression/stabilization 3. IR eval: ? role for vertebroplasty before or after RT 4. Candidate for palliative RT to spine to fractures once above addressed (outpatient if pain controlled) 5. Systemic therapy per medical oncology Thank you for asking me to see her.
[2020-01-04 09:36] LABS: ALBUMIN 2.8 g/dl (3.4-5.0); BILIRUBIN,TOTAL 0.4 mg/dL (0.2-1); BLOOD UREA NITROGEN 13.5 mg/dL (7-18); CALCIUM 9.7 mg/dL (8.5-10.1); CREATININE 0.8 mg/dL (0.55-1.3); MAGNESIUM 1.5 mg/dL (1.8-2.4); PHOSPHOROUS 1.6 mg/dL (2.5-4.9); POTASSIUM 3.3 mmol/L (3.5-5.1); TOT PROT 7.4 g/dl (6.4-8.2)
[2020-01-04] MEDS: LISINOPRIL 10 MG TABLET (FP) PO SCH (09:48)
[2020-01-04] MEDS: ENOXAPARIN NA (PORCINE) 40 MG/0.4 ML DISP.SYRIN SQ SCH (09:48)
[2020-01-04] MEDS: amLODIPine BESYLATE 5 MG TABLET (FP) PO SCH (09:48)
[2020-01-04] MEDS: ASPIRIN COATED 81 MG TABLET.EC PO SCH (09:49)
--- NOTE | 2020-01-04 10:50 | PN ---
Progress Note (short form) - Note Progress Note: NEUROSURGERY CONSULT DICTATED Chart reviewed History obtained MRI T and LS spine reviewed H/o hypertension, hyperlipidemia, diabetes, recently diagnosed multiple myeloma with R humerus pathological fx c/o midline back pain. MRI on 12-29 showed multiple compression fractures at T11, L1 without spinal cord impingement. The patient is unable to walk due to the pain. No true urinary incontinence. No LE weakness. PE: AF, VSS HEENT- NC/AT; Neck- supple; Cor- RR; Lungs- CTA B; Abd- benign; Ext- no sign of DVT CN- intact; Motor- $+/5 pain limited; Sensation- intact LT; DTR- hyporeflexia/symmetric Hgb 8.1, INR 1.03; Cr 0.8 MRI T snd LS spine with jacob: Diffuse pathologicla marrow changes throughout T and LS spine, T4, T11, L1, L4, L5 pathological fx, worst at T11 and L1 with mild posterior cortex bowing; pedicle and vertebral body involvement; no cord compression at any level; moderate to marked degenerative L4-5 stenosis secondary to L4-5 spondylolisthesis/facet hypertrophy Diffuse multifocal vertebral MM L4-5 degenerative spondylolisthesis with stenosis Neurosurgical intervention not indicated nor recommended Palliative RT if indicated Med onc f/u Pain meds/control Patient desires to ambulate, should consider a wheeled walker for safety/PT
[2020-01-04] MEDS: MORPHINE SULFATE 2 MG/ML VIAL IVPUSH PRN ×2 (12:14→20:15)
[2020-01-04] MEDS: SODIUM CHLORIDE 1,000 ML IV SCH ×2 (12:15→13:48)
--- NOTE | 2020-01-04 13:31 | PN ---
Progress Note, Physician History of Present Illness: Pt seen and examined at bedside. She is awake and alert. She denies shortness of breath. - Current Medication List Current Medications: Active Medications Amlodipine Besylate (Norvasc -) 5 mg PO DAILY [facility] Last Admin: 01/04/20 09:48 Dose: 5 mg Documented by: Aspirin (Ecotrin -) 81 mg PO DAILY [facility] Last Admin: 01/04/20 09:49 Dose: 81 mg Documented by: Atorvastatin Calcium (Lipitor -) 40 mg PO HS [facility] Last Admin: 01/03/20 22:42 Dose: 40 mg Documented by: Enoxaparin Sodium (Lovenox -) 40 mg SQ DAILY [facility] Last Admin: 01/04/20 09:48 Dose: 40 mg Documented by: Sodium Chloride (Normal Saline -) 1,000 mls @ 150 mls/hr IV ASDIR [facility] Last Admin: 01/04/20 12:15 Dose: 150 mls/hr Documented by: Insulin Aspart (Novolog Vial Sliding Scale -) 1 vial SQ TIDAC [facility]; Protocol Last Admin: 01/04/20 11:47 Dose: 1 unit Documented by: Lisinopril (Prinivil) 10 mg PO DAILY [facility] Last Admin: 01/04/20 09:48 Dose: 10 mg Documented by: Metoprolol Succinate (Toprol Xl -) 50 mg PO DAILY [facility] Last Admin: 01/04/20 09:48 Dose: 50 mg Documented by: Morphine Sulfate (Morphine Sulfate) 2 mg IVPUSH Q2H PRN PRN Reason: PAIN LEVEL 7 - 10 Last Admin: 01/04/20 12:14 Dose: 2 mg Documented by: Potassium Chloride (K-Dur -) 40 meq PO ONCE ONE Stop: 01/04/20 22:01 - Objective Vital Signs: Vital Signs Temperature 98.8 F 01/04/20 09:09 Pulse Rate 83 01/04/20 09:09 Respiratory Rate 18 01/04/20 09:09 Blood Pressure 151/75 01/04/20 09:09 O2 Sat by Pulse Oximetry (%) 93 L 01/04/20 09:00 Constitutional: Yes: Calm Eyes: Yes: Conjunctiva Clear HENT: Yes: Atraumatic Neck: Yes: Supple Cardiovascular: Yes: S1, S2 Respiratory: Yes: CTA Bilaterally Gastrointestinal: Yes: Soft Genitourinary: Yes: WNL Edema: No Neurological: Yes: Oriented Psychiatric: Yes: Oriented Labs: CBC, BMP 01/04/20 08:20 01/04/20 08:20 INR, PTT INR 1.03 (0.83-1.09) 01/03/20 10:00 Problem List - Problems (1) Hypercalcemia Code(s): E83.52 - HYPERCALCEMIA (2) Multiple myeloma Code(s): C90.00 - MULTIPLE MYELOMA NOT HAVING ACHIEVED REMISSION (3) Spine fracture Code(s): LWZ2079 - Assessment/Plan Current Medications Generic Name Dose Route Start Last Admin Trade Name Freq PRN Reason Stop Dose Admin Amlodipine Besylate 5 mg 01/03/20 12:30 01/04/20 09:48 Norvasc - PO 5 mg DAILY OTILIA Administration Aspirin 81 mg 01/04/20 10:00 01/04/20 09:49 Ecotrin - PO 81 mg DAILY OTILIA Administration Atorvastatin Calcium 40 mg 01/03/20 22:00 01/03/20 22:42 Lipitor - PO 40 mg HS OTILIA Administration Enoxaparin Sodium 40 mg 01/03/20 12:45 01/04/20 09:48 Lovenox - SQ 40 mg DAILY OTILIA Administration Sodium Chloride 1,000 mls @ 150 mls/hr 01/03/20 12:30 01/04/20 12:15 Normal Saline - IV 150 mls/hr ASDIR OTILIA Administration Insulin Aspart 1 vial 01/03/20 16:30 01/04/20 11:47 Novolog Vial Sliding Scale - SQ 1 unit TIDAC OTILIA Administration Protocol Lisinopril 10 mg 01/03/20 12:30 01/04/20 09:48 Prinivil PO 10 mg DAILY OTILIA Administration Metoprolol Succinate 50 mg 01/03/20 12:30 01/04/20 09:48 Toprol Xl - PO 50 mg DAILY OTILIA Administration Morphine Sulfate 2 mg 01/03/20 12:24 01/04/20 12:14 Morphine Sulfate IVPUSH 2 mg Q2H PRN Administration PAIN LEVEL 7 - 10 Potassium Chloride 40 meq 01/04/20 22:00 K-Dur - PO 01/04/20 22:01 ONCE ONE Impression 1. hypercalcemia 2. multiple myelpma 3. htn 4. hld 5. dm 6. hypokalemia 7. compression fractures 8. CKD Plan - calcium improving - can start to decrease rate of fluids - replace potassium - repeat labs in am - s/p zometa - can d/c calcitonin - bp is improving
[2020-01-04] MEDS: NAPH,MB-DB/K PH,MBDB POWDER PACKET PO SCH ×2 (13:53→21:37)
--- NOTE | 2020-01-04 15:35 | PN ---
Teaching Attending Note Name of Resident: Viktor Escobar ATTENDING PHYSICIAN STATEMENT I saw and evaluated the patient. I reviewed the resident's note and discussed the case with the resident. I agree with the resident's findings and plan as documented. SUBJECTIVE: Ongoing back discomfort. No LE weakness/numbness/tingling or incontinence. OBJECTIVE: Afebrile, hemodynamically Stable. Last Vital Signs Temp Pulse Resp BP Pulse Ox 98.7 F 82 20 155/76 93 L 01/04/20 14:37 01/04/20 14:37 01/04/20 14:37 01/04/20 14:37 01/04/20 09:00 HEENT - Atraumatic, Normocephalic. Heart - S1, S2, RRR Lungs - clear to auscultation Abdomen - Soft, non-tender. Bowel Sounds normal. Extremities - no edema, no calf tenderness. Neuro - AAO x 3. Tone/power normal all extremities. Laboratory Results - last 24 hr 01/03/20 01/04/20 01/04/20 16:17 06:00 08:20 WBC 8.7 RBC 2.84 L Hgb 8.1 L Hct 24.6 L MCV 86.5 MCH 28.5 MCHC 32.9 RDW 15.6 Plt Count 255 MPV 7.1 L Absolute Neuts (auto) 6.3 Neutrophils % 73.1 Lymphocytes % 17.8 D Monocytes % 7.8 Eosinophils % 0.5 D Basophils % 0.8 Nucleated RBC % 0 Sodium Potassium Chloride Carbon Dioxide Anion Gap BUN Creatinine Est GFR (CKD-EPI)AfAm Est GFR (CKD-EPI)NonAf POC Glucometer 91 109 Random Glucose Calcium Phosphorus Magnesium Total Bilirubin AST ALT Alkaline Phosphatase Total Protein Albumin 01/04/20 01/04/20 08:20 11:33 WBC RBC Hgb Hct MCV MCH MCHC RDW Plt Count MPV Absolute Neuts (auto) Neutrophils % Lymphocytes % Monocytes % Eosinophils % Basophils % Nucleated RBC % Sodium 141 Potassium 3.3 L Chloride 106 Carbon Dioxide 26 Anion Gap 9 BUN 13.5 Creatinine 0.8 Est GFR (CKD-EPI)AfAm 85.97 Est GFR (CKD-EPI)NonAf 74.17 POC Glucometer 152 Random Glucose 111 H Calcium 9.7 Phosphorus 1.6 L Magnesium 1.5 L Total Bilirubin 0.4 AST 11 L ALT 10 L Alkaline Phosphatase 62 Total Protein 7.4 Albumin 2.8 L Current Medications Generic Name Dose Route Start Last Admin Trade Name Freq PRN Reason Stop Dose Admin Amlodipine Besylate 5 mg 01/03/20 12:30 01/04/20 09:48 Norvasc - PO 5 mg DAILY OTILIA Administration Aspirin 81 mg 01/04/20 10:00 01/04/20 09:49 Ecotrin - PO 81 mg DAILY OTILIA Administration Atorvastatin Calcium 40 mg 01/03/20 22:00 01/03/20 22:42 Lipitor - PO 40 mg HS OTILIA Administration Enoxaparin Sodium 40 mg 01/03/20 12:45 01/04/20 09:48 Lovenox - SQ 40 mg DAILY OTILIA Administration Sodium Chloride 1,000 mls @ 100 mls/hr 01/04/20 13:31 01/04/20 13:48 Normal Saline - IV 100 mls/hr ASDIR OTILIA Administration Insulin Aspart 1 vial 01/03/20 16:30 01/04/20 11:47 Novolog Vial Sliding Scale - SQ 1 unit TIDAC OTILIA Administration Protocol Lisinopril 10 mg 01/03/20 12:30 01/04/20 09:48 Prinivil PO 10 mg DAILY OTILIA Administration Metoprolol Succinate 50 mg 01/03/20 12:30 01/04/20 09:48 Toprol Xl - PO 50 mg DAILY OTILIA Administration Morphine Sulfate 2 mg 01/03/20 12:24 01/04/20 12:14 Morphine Sulfate IVPUSH 2 mg Q2H PRN Administration PAIN LEVEL 7 - 10 Potassium Chloride 40 meq 01/04/20 22:00 K-Dur - PO 01/04/20 22:01 ONCE ONE Potassium Phos/Sodium Phos 1 packet 01/04/20 13:45 01/04/20 13:53 Phos-Nak Packet - PO 1 packet BID OTILIA Administration Home Medications Medication Instructions Recorded Amlodipine Besylate/Benazepril 1 cap PO DAILY 06/15/17 [Lotrel 5-10 mg Capsule] Atorvastatin Ca [Lipitor] 40 mg PO HS 06/15/17 Metoprolol Succinate [Toprol Xl] 50 mg PO DAILY 06/15/17 Sitagliptin Phos/Metformin HCl 1 each PO BID 06/15/17 [Janumet 50-1,000 mg Tablet] Aspirin Coated [Ecotrin -] 81 mg PO ASDIR 07/02/17 Ibuprofen [Motrin -] 400 mg PO PRN 01/03/20 ASSESSMENT AND PLAN: 69 year old male with history of HTN, HLD, DM 2, recently diagnosed MM (follows with Dr. Lerma), presented with back pain, limiting mobility and ability to reach bathroom in time. She denies LE weakness or incontinence. She was found to have multiple spinal vertebral pathologic fractures. MRI T/L Spine - multiple compression fractures at T11, L4-L5 without spinal cord impingement. L4-5 degenerative spondylolisthesis with stenosis 1. Multilevel T/L Spine pathologic fractures secondary to MM No evidence of spinal cord compression. Seen by Oncology, Rad-Onc, Neurosurgery As per Neurosurgery - No surgical intervention recommended. Rad-Onc to consider palliative RTx. Analgesia with Morphine PRN/Pain management consulted. 2. MM with Hypercalcemia and Hyperuricemia Seen by Nephrology for Hypercalcemia - continue IV hydration s/p Bisphosphonate/Calcitonin. 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 3. HTN - initially uncontrolled due to pain. Now improved on Norvasc, MARTIN-I, and Metoprolol. 4. HLD - continue Statin. 5. DM 2 - Novolog as per sliding scale. 6. Hypokalemia/Hypophosphatemia/Hypomagnesemia - repleted. DVT Px - Lovenox SQ.
[2020-01-04] MEDS ORDERED: MAGNESIUM SULF 50% (8.12 MEQ/2 ML-1 GM VIAL) IVPB ONE (15:40)
--- NOTE | 2020-01-04 15:40 | PN ---
Physical Exam: SUBJECTIVE: Patient seen and examined Patient was observed at bedside. Patient reports continuation of the pain from the middle of her back down to her hips. the patient reports the pain to be a 9/10 and sharp in nature. patient is able to lay down flat and was AAOx3. Patient denies any saddle anesthesia, and endorses urinary incontinence mostly likely urge incontinence. She reports that the pain inhibits her from ambulating and remains bed bound and unable to reach the bathroom before urinating. OBJECTIVE: Vital Signs Period Temp Pulse Resp BP Sys/Kerr Pulse Ox Last 24 Hr 98.7 F-981 F 79-93 16-20 151-192/62-86 93-99 GENERAL: The patient is awake, alert, and fully oriented, in no acute distress. HEAD: Normal with no signs of trauma. EYES: PERRL, extraocular movements intact, sclera anicteric, conjunctiva clear. No ptosis. ENT: Ears normal, nares patent, oropharynx clear without exudates, moist mucous membranes. NECK: Trachea midline, full range of motion, supple. LUNGS: Breath sounds equal, clear to auscultation bilaterally, no wheezes, no crackles, no accessory muscle use. HEART: Regular rate and rhythm, S1, S2 without murmur, rub or gallop. ABDOMEN: Soft, nontender, nondistended, normoactive bowel sounds, no guarding, no rebound, no hepatosplenomegaly, no masses. EXTREMITIES: 2+ pulses, warm, well-perfused, no edema. NEUROLOGICAL: Cranial nerves II through XII grossly intact. Normal speech, gait not observed. PSYCH: Normal mood, normal affect. SKIN: Warm, dry, normal turgor, no rashes or lesions noted Laboratory Results - last 24 hr 01/03/20 01/04/20 01/04/20 16:17 06:00 08:20 WBC 8.7 RBC 2.84 L Hgb 8.1 L Hct 24.6 L MCV 86.5 MCH 28.5 MCHC 32.9 RDW 15.6 Plt Count 255 MPV 7.1 L Absolute Neuts (auto) 6.3 Neutrophils % 73.1 Lymphocytes % 17.8 D Monocytes % 7.8 Eosinophils % 0.5 D Basophils % 0.8 Nucleated RBC % 0 Sodium Potassium Chloride Carbon Dioxide Anion Gap BUN Creatinine Est GFR (CKD-EPI)AfAm Est GFR (CKD-EPI)NonAf POC Glucometer 91 109 Random Glucose Calcium Phosphorus Magnesium Total Bilirubin AST ALT Alkaline Phosphatase Total Protein Albumin 01/04/20 01/04/20 08:20 11:33 WBC RBC Hgb Hct MCV MCH MCHC RDW Plt Count MPV Absolute Neuts (auto) Neutrophils % Lymphocytes % Monocytes % Eosinophils % Basophils % Nucleated RBC % Sodium 141 Potassium 3.3 L Chloride 106 Carbon Dioxide 26 Anion Gap 9 BUN 13.5 Creatinine 0.8 Est GFR (CKD-EPI)AfAm 85.97 Est GFR (CKD-EPI)NonAf 74.17 POC Glucometer 152 Random Glucose 111 H Calcium 9.7 Phosphorus 1.6 L Magnesium 1.5 L Total Bilirubin 0.4 AST 11 L ALT 10 L Alkaline Phosphatase 62 Total Protein 7.4 Albumin 2.8 L Active Medications Generic Name Dose Route Start Last Admin Trade Name Freq PRN Reason Stop Dose Admin Amlodipine Besylate 5 mg 01/03/20 12:30 01/04/20 09:48 Norvasc - PO 5 mg DAILY OTILIA Administration Aspirin 81 mg 01/04/20 10:00 01/04/20 09:49 Ecotrin - PO 81 mg DAILY OTILIA Administration Atorvastatin Calcium 40 mg 01/03/20 22:00 01/03/20 22:42 Lipitor - PO 40 mg HS OTILIA Administration Enoxaparin Sodium 40 mg 01/03/20 12:45 01/04/20 09:48 Lovenox - SQ 40 mg DAILY OTILIA Administration Sodium Chloride 1,000 mls @ 100 mls/hr 01/04/20 13:31 01/04/20 13:48 Normal Saline - IV 100 mls/hr ASDIR OTILIA Administration Insulin Aspart 1 vial 01/03/20 16:30 01/04/20 11:47 Novolog Vial Sliding Scale - SQ 1 unit TIDAC OTILIA Administration Protocol Lisinopril 10 mg 01/03/20 12:30 01/04/20 09:48 Prinivil PO 10 mg DAILY OTILIA Administration Metoprolol Succinate 50 mg 01/03/20 12:30 01/04/20 09:48 Toprol Xl - PO 50 mg DAILY OTILIA Administration Morphine Sulfate 2 mg 01/03/20 12:24 01/04/20 12:14 Morphine Sulfate IVPUSH 2 mg Q2H PRN Administration PAIN LEVEL 7 - 10 Potassium Chloride 40 meq 01/04/20 22:00 K-Dur - PO 01/04/20 22:01 ONCE ONE Potassium Phos/Sodium Phos 1 packet 01/04/20 13:45 01/04/20 13:53 Phos-Nak Packet - PO 1 packet BID OTILIA Administration ASSESSMENT/PLAN: Patient is a 69 yo F with a past medical history of diagnosed Stage IIImultiple myeloma in 05/2019 and follows up with Dr. Lerma, vertebral fracture in T4,T11, L1, L5 without spinal cord impingement, HTN/HLD/Diabetes presenting to the ED yesterday at the advice of Dr. Lerma for midline back pain. 1. Unable to ambulate 2* to vertebral compression fx - Patient reports that the pain of ambulation inhibits her ability to reach the bathroom in time. Suspected Urge incontinence - Reports the pain to be band like starting from her midline and radiating around her back down to her hips - Pain management - consulted by Dr. Domingo on management regimen- - Continue morphine - Gabapentin 100mg 3x D - MScontin 15mg BID - Radon consult for radiation therapy - Neurosurgery not needed as per Dr. Escamilla 2. Multiple Myeloma - nephro consult for hypercalcemia - calcitonin switched to bisphosphinates - replacing potassium - repeat labs - decrease fluid rate as per nephro - Oncology on board 3. Hypertensive urgency - continue antihypertensive agents - amlodipine -metoprolol 4. Hyperlipidemia - Home statin Visit type - Emergency Visit Emergency Visit: Yes ED Registration Date: 01/03/20 Care time: The patient presented to the Emergency Department on the above date and was hospitalized for further evaluation of their emergent condition. - New Patient This patient is new to me today: No - Critical Care Critical Care patient: No ATTENDING PHYSICIAN STATEMENT I saw and evaluated the patient. I reviewed the resident's note and discussed the case with the resident. I agree with the resident's findings and plan as documented. SUBJECTIVE: OBJECTIVE: ASSESSMENT AND PLAN:
[2020-01-04] MEDS: GABAPENTIN 100 MG CAPSULE PO SCH (21:37)
[2020-01-04] MEDS: ATORVASTATIN CA 40 MG TABLET (FP) PO SCH (21:37)
[2020-01-04] MEDS ORDERED: POTASSIUM CHLORIDE TABS 20 MEQ TABLET.ER (FP) PO ONE (22:00)
[2020-01-04] MEDS ORDERED: morphine SO4 SUSTAINED ACTING 15 MG TABLET.SA PO SCH (22:00)
[2020-01-05] MEDS: GABAPENTIN 100 MG CAPSULE PO SCH ×3 (06:47→21:56)
[2020-01-05] MEDS: INSULIN SLIDING SCALE (NOVOLOG) 1 VIAL SQ SCH ×3 (06:48→16:53)
[2020-01-05 08:09] LABS: HEMOGLOBIN 8.6 GM/dL (10.7-15.3); MCH 28.7 pg (25.7-33.7); MCHC 33.1 g/dl (32.0-36.0); MEAN CELL VOLUME 86.7 fl (80-96); PLATELET COUNT 282 K/MM3 (134-434); RDW 15.5 % (11.6-15.6); WHITE BLOOD COUNT 10.4 K/mm3 (4.0-10.0)
[2020-01-05 08:27] LABS: BILIRUBIN,TOTAL 0.8 mg/dL (0.2-1); BLOOD UREA NITROGEN 9.7 mg/dL (7-18); CALCIUM 9.2 mg/dL (8.5-10.1); CREATININE 0.8 mg/dL (0.55-1.3); MAGNESIUM 1.8 mg/dL (1.8-2.4); POTASSIUM 3.6 mmol/L (3.5-5.1); TOT PROT 7.9 g/dl (6.4-8.2)
[2020-01-05] MEDS: MORPHINE SULFATE 2 MG/ML VIAL IVPUSH PRN (09:38)
[2020-01-05] MEDS: ENOXAPARIN NA (PORCINE) 40 MG/0.4 ML DISP.SYRIN SQ SCH (09:41)
[2020-01-05] MEDS: LISINOPRIL 10 MG TABLET (FP) PO SCH (09:41)
[2020-01-05] MEDS: amLODIPine BESYLATE 5 MG TABLET (FP) PO SCH (09:41)
[2020-01-05] MEDS: ASPIRIN COATED 81 MG TABLET.EC PO SCH (09:41)
[2020-01-05] MEDS: NAPH,MB-DB/K PH,MBDB POWDER PACKET PO SCH ×2 (09:41→21:56)
[2020-01-05] MEDS: SODIUM CHLORIDE 1,000 ML IV SCH ×2 (11:06→14:08)
--- NOTE | 2020-01-05 11:10 | CONS ---
DATE OF CONSULTATION: 01/04/2020 CHIEF COMPLAINT: Mid and lower back pain. REQUESTING PHYSICIAN: Solomon See MD [employer]EARCH WORK[employer] KITCHEN: Peggy Huerta MD, Neurosurgery HISTORY OF PRESENT ILLNESS: Patient is a 69-year-old right-handed female with a history of hypertension, multiple myeloma, diabetes and hypercholesterolemia, who complains of a several-month history of increasing mid and lower back pain. She experiences pain that is predominantly in the lower intrascapular region. Her pain has become somewhat more severe to a degree that she has difficulty walking secondary to the pain. She denies lower extremity weakness or numbness and has no bowel or bladder incontinence. She does have difficulty getting to bathroom in time because of her difficulty with ambulation. She has not received chemotherapy or radiation by report. She did have a pathological fracture of right humerus last June and was diagnosed with multiple myeloma at that time. PAST MEDICAL HISTORY: Significant for multiple myeloma, hypertension, hypercholesterolemia, diabetes. MEDICATIONS: Include Lovenox, Prinivil, Norvasc, Lipitor, insulin coverage, Toprol XL, baby aspirin, potassium chloride as well as potassium phosphate. ALLERGIES: There are no known drug allergies. FAMILY HISTORY: Noncontributory. SOCIAL HISTORY: She does not smoke or drink. She lives at home. She is retired. REVIEW OF SYSTEMS: Otherwise negative for major constitutional, head and neck, cardiovascular, pulmonary, gastrointestinal, genitourinary, endocrinological, neurological or psychological problems except for that noted above. PHYSICAL EXAMINATION: Vital Signs: Temperature is 98.7, T-Max is 99, blood pressure is 155/76, pulse rate of 82, O2 saturation is 93% on room air. HEENT: Reveals her to be normocephalic, atraumatic, anicteric. Neck: Supple with no carotid bruit. Coronary: Demonstrated a regular rhythm. Lungs: Clear bilaterally. Abdomen: Benign. Extremities: Reveal no signs of DVT. Neurologic: Her speech is normal and her memory is intact. Cranial nerve examination is intact II-XII. Motor examination shows 4+/5 strength in the upper and lower extremities, symmetric, limited by pain. Sensory examination is intact to light touch. Deep tendon reflexes are hyporeflexive throughout. There is no pathological long-tract sign. Back: Shows tenderness in the mid and lower thoracic region bilaterally. There is mild paraspinal muscle spasm. LABORATORY EXAMINATION: Shows white blood cell count 8.7, hemoglobin is 8.1 and platelet count is 255,000. INR is 1.03. BUN is 13.5 and creatinine is 0.8. Glucose is 111. LFTs are normal except for decreased albumin of 2.8. Magnesium is 1.5. COVID-19 serology is pending. MRI examination of the thoracic and lumbar spine with and without gadolinium was reviewed. There is evidence of pathological fracture at T4, T11, L1, L4 and L5 vertebral bodies. There is vertebral body collapse at T11 and L1 with pedicle involvement. There is posterior cortex bowing with slight thecal sac impingement but no cord compression. There is L4-5 degenerative spondylolisthesis with facet hypertrophy which results in moderate to marked central stenosis and lateral recess stenosis. There is no significant epidural disease. IMPRESSION: 1. Multiple myeloma with multifocal vertebral disease. 2. Hypertension. 3. Hypercholesterolemia. 4. Diabetes. RECOMMENDATIONS: Patient presents with worsening back pain and difficulty with ambulation because of the pain. She denies any significant weakness, numbness or sphincter dysfunction. Neurologic examination is nonfocal except where limited by pain. MRI examination demonstrated diffuse vertebral marrow changes consistent with multiple myeloma. There is also pathological fracture at multiple levels, worse at T11 and L1. As the pathology is multiple myeloma, and there is no significant neurological deficit, no neurosurgical intervention is indicated nor recommended. Pain control could be obtained with topical measures or oral pharmacological treatment. She could also be considered for a Duragesic patch if needed. Palliative radiation may be helpful in controlling the local pain over the T11 and L1 fractures. Medical Oncology followup is recommended. The patient desires to ambulate, and a wheeled walker should be considered for safety. A course of physical therapy may also be helpful for the patient's mobility reasons. The above was discussed with the patient at bedside. All questions were answered. PEGGY HUERTA M.D. [facility]/[id number]
[2020-01-05] MEDS ORDERED: INSULIN (NOVOLOG) ASPART 100 UNITS/ML 10ML VIAL ONE (11:21)
--- NOTE | 2020-01-05 13:34 | PN ---
Physical Exam: SUBJECTIVE: Patient seen and examined. No acute complaints overnight. Pt. endorses a slight improvement of back pain. OBJECTIVE: Vital Signs Period Temp Pulse Resp BP Sys/Kerr Pulse Ox Last 24 Hr 98.7 F-99.0 F 78-93 18-20 144-155/69-76 94-95 GENERAL: The patient is awake, alert, and fully oriented, in mild distress due to pain. HEAD: Normal with no signs of trauma. EYES:conjunctiva clear. ENT: Moist mucous membranes. LUNGS: Breath sounds equal, clear to auscultation bilaterally, no wheezes, no crackles, no accessory muscle use. HEART: Regular rate and rhythm, S1, S2 with systolic murmur ABDOMEN: Soft, nontender, nondistended, normoactive bowel sounds EXTREMITIES: 2+ dorsal pedal pulses, warm, well-perfused, no calf tenderness, no edema. NEUROLOGICAL: Normal speech, gait not observed. PSYCH: Normal mood, normal affect. SKIN: Warm, dry, normal turgor Laboratory Results - last 24 hr 01/03/20 01/04/20 01/05/20 10:35 16:36 06:46 WBC RBC Hgb Hct MCV MCH MCHC RDW Plt Count MPV Sodium Potassium Chloride Carbon Dioxide Anion Gap BUN Creatinine Est GFR (CKD-EPI)AfAm Est GFR (CKD-EPI)NonAf POC Glucometer 110 121 Random Glucose Calcium Magnesium Total Bilirubin AST ALT Alkaline Phosphatase Total Protein Albumin COVID-19 (TOM) Not detected 01/05/20 01/05/20 01/05/20 07:03 07:03 11:16 WBC 10.4 H RBC 3.00 L Hgb 8.6 L Hct 26.0 L MCV 86.7 MCH 28.7 MCHC 33.1 RDW 15.5 Plt Count 282 MPV 7.0 L Sodium 139 Potassium 3.6 Chloride 106 Carbon Dioxide 26 Anion Gap 7 L BUN 9.7 Creatinine 0.8 Est GFR (CKD-EPI)AfAm 85.97 Est GFR (CKD-EPI)NonAf 74.17 POC Glucometer 154 Random Glucose 128 H Calcium 9.2 Magnesium 1.8 Total Bilirubin 0.8 AST 11 L ALT 9 L Alkaline Phosphatase 68 Total Protein 7.9 Albumin 3.0 L COVID-19 (TOM) Active Medications Generic Name Dose Route Start Last Admin Trade Name Freq PRN Reason Stop Dose Admin Amlodipine Besylate 5 mg 06/30/20 12:30 01/05/20 09:41 Norvasc - PO 5 mg DAILY OTILIA Administration Aspirin 81 mg 01/04/20 10:00 01/05/20 09:41 Ecotrin - PO 81 mg DAILY OTILIA Administration Atorvastatin Calcium 40 mg 01/03/20 22:00 01/04/20 21:37 Lipitor - PO 40 mg HS OTILIA Administration Enoxaparin Sodium 40 mg 01/03/20 12:45 01/05/20 09:41 Lovenox - SQ 40 mg DAILY OTILIA Administration Gabapentin 100 mg 01/04/20 22:00 01/05/20 13:19 Neurontin - PO 100 mg TID OTILIA Administration Sodium Chloride 1,000 mls @ 100 mls/hr 01/04/20 13:31 01/05/20 11:06 Normal Saline - IV 100 mls/hr ASDIR OTILIA Administration Insulin Aspart 1 vial 01/03/20 16:30 01/05/20 11:23 Novolog Vial Sliding Scale - SQ 1 unit TIDAC OTILIA Administration Protocol Lisinopril 10 mg 01/03/20 12:30 01/05/20 09:41 Prinivil PO 10 mg DAILY OTILIA Administration Metoprolol Succinate 50 mg 01/03/20 12:30 01/05/20 09:41 Toprol Xl - PO 50 mg DAILY OTILIA Administration Oxycodone HCl 5 mg 01/05/20 11:28 Roxicodone - PO Q6H PRN PAIN LEVEL 4 - 6 Potassium Phos/Sodium Phos 1 packet 01/04/20 13:45 01/05/20 09:41 Phos-Nak Packet - PO 1 packet BID OTILIA Administration ASSESSMENT/PLAN: Pt. is a 69 y.o. F w/ PMHx. of Multiple Myeloma (recently diagnosed, follows with Dr. Lerma) HTN, HLD and DM sent to ED by Dr. Lerma for midline back pain. Patient had an MRI done 2 days ago that showed multiple compression fractures at T11, L4-L5 without spinal cord impingement. The patient is unable to walk due to the pain. She states she has had urinary incontinence however this was due to the inability to go to the restroom due to pain rather than true incontinence. Acknowledges to 10/10 pain and it has been worsening recently. Dr. Lerma has planned to start her on systemic therapy previously. #Multiple Myeloma f/u reccomendations from Radiation Oncology, Per PT. no definitive date has been set yet. Palliative RT therapy may improve ambulation and pain. C/w PT Nephrology consult appreciated for hypercalcemia, Pt. is s/p IVF, Zometa and Calcitonin, continue to monitor Calcium levels, Pt. may need detention bisphosphonate therapy After Rad-Onc input will consider starting CyBorD chemotherapy (Cyclophosphamide, Bortezomib and Dexamethasone). c/w Lovenox for DVT PPx. while inpatient Visit type - Emergency Visit Emergency Visit: Yes ED Registration Date: 01/03/20 Care time: The patient presented to the Emergency Department on the above date and was hospitalized for further evaluation of their emergent condition. - New Patient This patient is new to me today: Yes Date on this admission: 01/05/20 - Critical Care Critical Care patient: No - Discharge Referral Referred to [facility] Med [facility] No ATTENDING PHYSICIAN STATEMENT I saw and evaluated the patient. I reviewed the resident's note and discussed the case with the resident. I agree with the resident's findings and plan as documented. SUBJECTIVE: OBJECTIVE: ASSESSMENT AND PLAN:
[2020-01-05] MEDS: oxyCODONE HCL 5 MG TABLET PO PRN ×2 (14:08→22:55)
--- NOTE | 2020-01-05 15:27 | PN ---
Teaching Attending Note Name of Resident: Viktor Escobar ATTENDING PHYSICIAN STATEMENT I saw and evaluated the patient. I reviewed the resident's note and discussed the case with the resident. I agree with the resident's findings and plan as documented. SUBJECTIVE: Ongoing back discomfort on ambulation. No LE weakness/numbness/tingling or incontinence. OBJECTIVE: Afebrile, hemodynamically Stable. Last Vital Signs Temp Pulse Resp BP Pulse Ox 99.5 F 82 18 154/71 94 L 01/05/20 14:28 01/05/20 14:28 01/05/20 14:28 01/05/20 14:28 01/05/20 12:18 Heart - S1, S2, RRR Lungs - clear to auscultation Abdomen - Soft, non-tender. Bowel Sounds normal. Extremities - no edema, no calf tenderness. Neuro - AAO x 3. Tone/power normal all extremities. Laboratory Results - last 24 hr 01/03/20 01/04/20 01/05/20 10:35 16:36 06:46 WBC RBC Hgb Hct MCV MCH MCHC RDW Plt Count MPV Sodium Potassium Chloride Carbon Dioxide Anion Gap BUN Creatinine Est GFR (CKD-EPI)AfAm Est GFR (CKD-EPI)NonAf POC Glucometer 110 121 Random Glucose Calcium Magnesium Total Bilirubin AST ALT Alkaline Phosphatase Total Protein Albumin COVID-19 (TOM) Not detected 01/05/20 01/05/20 01/05/20 07:03 07:03 11:16 WBC 10.4 H RBC 3.00 L Hgb 8.6 L Hct 26.0 L MCV 86.7 MCH 28.7 MCHC 33.1 RDW 15.5 Plt Count 282 MPV 7.0 L Sodium 139 Potassium 3.6 Chloride 106 Carbon Dioxide 26 Anion Gap 7 L BUN 9.7 Creatinine 0.8 Est GFR (CKD-EPI)AfAm 85.97 Est GFR (CKD-EPI)NonAf 74.17 POC Glucometer 154 Random Glucose 128 H Calcium 9.2 Magnesium 1.8 Total Bilirubin 0.8 AST 11 L ALT 9 L Alkaline Phosphatase 68 Total Protein 7.9 Albumin 3.0 L COVID-19 (TOM) Current Medications Generic Name Dose Route Start Last Admin Trade Name Freq PRN Reason Stop Dose Admin Amlodipine Besylate 5 mg 01/03/20 12:30 01/05/20 09:41 Norvasc - PO 5 mg DAILY OTILIA Administration Aspirin 81 mg 01/04/20 10:00 01/05/20 09:41 Ecotrin - PO 81 mg DAILY OTILIA Administration Atorvastatin Calcium 40 mg 01/03/20 22:00 01/04/20 21:37 Lipitor - PO 40 mg HS OTILIA Administration Enoxaparin Sodium 40 mg 01/03/20 12:45 01/05/20 09:41 Lovenox - SQ 40 mg DAILY OTILIA Administration Gabapentin 100 mg 01/04/20 22:00 01/05/20 13:19 Neurontin - PO 100 mg TID OTILIA Administration Sodium Chloride 1,000 mls @ 100 mls/hr 01/04/20 13:31 01/05/20 14:08 Normal Saline - IV Not Given ASDIR [facility] Insulin Aspart 1 vial 01/03/20 16:30 01/05/20 11:23 Novolog Vial Sliding Scale - SQ 1 unit TIDAC OTILIA Administration Protocol Lisinopril 10 mg 01/03/20 12:30 01/05/20 09:41 Prinivil PO 10 mg DAILY OTILIA Administration Metoprolol Succinate 50 mg 01/03/20 12:30 01/05/20 09:41 Toprol Xl - PO 50 mg DAILY OTILIA Administration Oxycodone HCl 5 mg 01/05/20 11:28 01/05/20 14:08 Roxicodone - PO 5 mg Q6H PRN Administration PAIN LEVEL 4 - 6 Potassium Phos/Sodium Phos 1 packet 01/04/20 13:45 01/05/20 09:41 Phos-Nak Packet - PO 1 packet BID OTILIA Administration Home Medications Medication Instructions Recorded Amlodipine Besylate/Benazepril 1 cap PO DAILY 06/15/17 [Lotrel 5-10 mg Capsule] Atorvastatin Ca [Lipitor] 40 mg PO HS 06/15/17 Metoprolol Succinate [Toprol Xl] 50 mg PO DAILY 06/15/17 Sitagliptin Phos/Metformin HCl 1 each PO BID 06/15/17 [Janumet 50-1,000 mg Tablet] Aspirin Coated [Ecotrin -] 81 mg PO ASDIR 07/02/17 Ibuprofen [Motrin -] 400 mg PO PRN 01/03/20 ASSESSMENT AND PLAN: 69 year old male with history of HTN, HLD, DM 2, recently diagnosed MM (follows with Dr. Lerma), presented with back pain, limiting mobility and ability to reach bathroom in time. She denies LE weakness or incontinence. She was found to have multiple spinal vertebral pathologic fractures. MRI T/L Spine - multiple compression fractures at T11, L4-L5 without spinal cord impingement. L4-5 degenerative spondylolisthesis with stenosis 1. Multilevel T/L Spine pathologic fractures secondary to MM No evidence of spinal cord compression. Seen by Oncology, Rad-Onc, Neurosurgery As per Neurosurgery - No surgical intervention recommended. Rad-Onc to consider palliative RTx as out-patient. Analgesia with trial of oxycodone. Pain Management referral. 2. MM with Hypercalcemia and Hyperuricemia Seen by Nephrology for Hypercalcemia - IV hydration decreased. s/p Bisphosphonate/Calcitonin. Hypercalcemia improved. 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 3. HTN - initially uncontrolled due to pain. Now improved on home meds Norvasc, MARTIN-I, and Metoprolol. 4. HLD - continue Statin. 5. DM 2 - Novolog as per sliding scale. 6. Hypokalemia/Hypophosphatemia/Hypomagnesemia - repleted. DVT Px - Lovenox SQ. Dispo on Oxycodone - pending PT eval and Oncology plan/clearance.
--- NOTE | 2020-01-05 15:38 | PN ---
Progress Note (short form) - Note Progress Note: Radiation Oncology follow up Pain slowly improving with current analgesic regimen. Remains neurologically stable. No intervention indicated per neurosurgery. A/P Multiple myeloma with multiple pathologic vetebral compression fractures, most symptomatic at T11 and L1. No emergent role for RT at this time. Would plan outpatient RT when pain control has been optimized. Pt has office # Pain mgt follow up. Consider PT if able to tolerate as per neurosurgery. Systemic therapy plans per Dr. Lerma/team.
--- NOTE | 2020-01-05 16:33 | DS ---
Physical Exam: SUBJECTIVE: Patient seen and examined OBJECTIVE: Vital Signs Period Temp Pulse Resp BP Sys/Kerr Pulse Ox Last 24 Hr 98.7 F-99.5 F 78-93 18-20 144-155/69-75 94-95 PHYSICAL EXAM GENERAL: The patient is awake, alert, and fully oriented, in no acute distress. HEAD: Normal with no signs of trauma. EYES: PERRL, extraocular movements intact, sclera anicteric, conjunctiva clear. ENT: Ears normal, nares patent, oropharynx clear without exudates, moist mucous membranes. NECK: Trachea midline, full range of motion, supple. LUNGS: Breath sounds equal, clear to auscultation bilaterally, no wheezes, no crackles, no accessory muscle use. HEART: Regular rate and rhythm, S1, S2 without murmur, rub or gallop. ABDOMEN: Soft, nontender, nondistended, normoactive bowel sounds, no guarding, no rebound, no hepatosplenomegaly, no masses. EXTREMITIES: 2+ pulses, warm, well-perfused, no edema. NEUROLOGICAL: Cranial nerves II through XII grossly intact. Normal speech, gait not observed. PSYCH: Normal mood, normal affect. SKIN: Warm, dry, normal turgor, no rashes or lesions noted. LABS Laboratory Results - last 24 hr 01/03/20 01/04/20 01/05/20 10:35 16:36 06:46 WBC RBC Hgb Hct MCV MCH MCHC RDW Plt Count MPV Sodium Potassium Chloride Carbon Dioxide Anion Gap BUN Creatinine Est GFR (CKD-EPI)AfAm Est GFR (CKD-EPI)NonAf POC Glucometer 110 121 Random Glucose Calcium Magnesium Total Bilirubin AST ALT Alkaline Phosphatase Total Protein Albumin COVID-19 (TOM) Not detected 01/05/20 01/05/20 01/05/20 07:03 07:03 11:16 WBC 10.4 H RBC 3.00 L Hgb 8.6 L Hct 26.0 L MCV 86.7 MCH 28.7 MCHC 33.1 RDW 15.5 Plt Count 282 MPV 7.0 L Sodium 139 Potassium 3.6 Chloride 106 Carbon Dioxide 26 Anion Gap 7 L BUN 9.7 Creatinine 0.8 Est GFR (CKD-EPI)AfAm 85.97 Est GFR (CKD-EPI)NonAf 74.17 POC Glucometer 154 Random Glucose 128 H Calcium 9.2 Magnesium 1.8 Total Bilirubin 0.8 AST 11 L ALT 9 L Alkaline Phosphatase 68 Total Protein 7.9 Albumin 3.0 L COVID-19 (TOM) HOSPITAL COURSE: Date of Admission:01/03/20 Date of Discharge: 01/05/20 Discharge Summary Problems reviewed: Yes Reason For Visit: FRACTURE OF VERTEBRA HYPERCALCEMIA Current Active Problems Hypercalcemia (Acute) Multiple myeloma (Acute) Spine fracture (Acute) Condition: Improved - Instructions Referrals: Ofelia Will [Primary Care Provider] - - Home Medications Comprehensive Discharge Medication List: Ambulatory Orders Amlodipine Besylate/Benazepril [Lotrel 5-10 mg Capsule] 1 cap PO DAILY 06/15/17 Atorvastatin Ca [Lipitor] 40 mg PO HS 06/15/17 Metoprolol Succinate [Toprol Xl] 50 mg PO DAILY 06/15/17 Sitagliptin Phos/Metformin HCl [Janumet 50-1,000 mg Tablet] 1 each PO BID 06/15/17 Aspirin Coated [Ecotrin -] 81 mg PO DAILY 07/02/17 Ibuprofen [Motrin -] 400 mg PO PRN 01/03/20 Allopurinol 300 mg PO DAILY 01/05/20 Ergocalciferol (Vitamin D2) [Vitamin D2] 50,000 unit PO WEEKLY 01/05/20 Glimepiride [Amaryl -] 4 mg PO DAILY@0700 01/05/20 Hydralazine HCl 50 mg PO BID 01/05/20 Naproxen 375 mg PO BID 01/05/20 ATTENDING PHYSICIAN STATEMENT I saw and evaluated the patient. I reviewed the resident's note and discussed the case with the resident. I agree with the resident's findings and plan as documented. SUBJECTIVE: OBJECTIVE: ASSESSMENT AND PLAN:
--- NOTE | 2020-01-05 18:17 | PN ---
Progress Note (short form) - Note Progress Note: NEUROSURGERY Seen this am H/o hypertension, hyperlipidemia, diabetes, recently diagnosed multiple myeloma with R humerus pathological fx c/o midline back pain. MRI on 12-29 showed multiple compression fractures at T11, L1 without spinal cord impingement. Pain better today and happier. PE: AF, VSS HEENT- NC/AT; Neck- supple; Cor- RR; Lungs- CTA B; Abd- benign; Ext- no sign of DVT CN- intact; Motor- $+/5 pain limited; Sensation- intact LT; DTR- hyporeflexia/symmetric MRI T snd LS spine with jacob: Diffuse pathologicla marrow changes throughout T and LS spine, T4, T11, L1, L4, L5 pathological fx, worst at T11 and L1 with mild posterior cortex bowing; pedicle and vertebral body involvement; no cord compression at any level; moderate to marked degenerative L4-5 stenosis secondary to L4-5 spondylolisthesis/facet hypertrophy Diffuse multifocal vertebral MM (h.o R humerus MM with pathological fx) L4-5 degenerative spondylolisthesis with stenosis Neurosurgical intervention not indicated nor recommended Palliative RT suggested for pain control Med onc f/u Pain meds Consider a wheeled walker for safety/PT
--- NOTE | 2020-01-05 19:40 | PN ---
Progress Note, Physician History of Present Illness: Pt seen and examined at bedside. She is awake and appears comfortable. - Current Medication List Current Medications: Active Medications Amlodipine Besylate (Norvasc -) 5 mg PO DAILY [facility] Last Admin: 01/05/20 09:41 Dose: 5 mg Documented by: Aspirin (Ecotrin -) 81 mg PO DAILY [facility] Last Admin: 01/05/20 09:41 Dose: 81 mg Documented by: Atorvastatin Calcium (Lipitor -) 40 mg PO HS [facility] Last Admin: 01/04/20 21:37 Dose: 40 mg Documented by: Enoxaparin Sodium (Lovenox -) 40 mg SQ DAILY [facility] Last Admin: 01/05/20 09:41 Dose: 40 mg Documented by: Gabapentin (Neurontin -) 100 mg PO TID [facility] Last Admin: 01/05/20 13:19 Dose: 100 mg Documented by: Sodium Chloride (Normal Saline -) 1,000 mls @ 100 mls/hr IV ASDIR [facility] Last Admin: 01/05/20 14:08 Dose: Not Given Documented by: Insulin Aspart (Novolog Vial Sliding Scale -) 1 vial SQ TIDAC [facility]; Protocol Last Admin: 01/05/20 16:53 Dose: Not Given Documented by: Lisinopril (Prinivil) 10 mg PO DAILY [facility] Last Admin: 01/05/20 09:41 Dose: 10 mg Documented by: Metoprolol Succinate (Toprol Xl -) 50 mg PO DAILY [facility] Last Admin: 01/05/20 09:41 Dose: 50 mg Documented by: Oxycodone HCl (Roxicodone -) 5 mg PO Q6H PRN PRN Reason: PAIN LEVEL 4 - 6 Last Admin: 01/05/20 14:08 Dose: 5 mg Documented by: Potassium Phos/Sodium Phos (Phos-Nak Packet -) 1 packet PO BID [facility] Last Admin: 01/05/20 09:41 Dose: 1 packet Documented by: - Objective Vital Signs: Vital Signs Temperature 99.5 F 01/05/20 14:28 Pulse Rate 82 01/05/20 14:28 Respiratory Rate 18 01/05/20 14:28 Blood Pressure 154/71 01/05/20 14:28 O2 Sat by Pulse Oximetry (%) 94 L 01/05/20 12:18 Constitutional: Yes: Calm Eyes: Yes: Conjunctiva Clear HENT: Yes: Atraumatic Cardiovascular: Yes: S1, S2 Respiratory: Yes: CTA Bilaterally Gastrointestinal: Yes: Soft Genitourinary: Yes: WNL Edema: No Integumentary: Yes: WNL Neurological: Yes: Oriented Labs: CBC, BMP 01/05/20 07:03 01/05/20 07:03 INR, PTT INR 1.03 (0.83-1.09) 01/03/20 10:00 Problem List - Problems (1) Hypercalcemia Code(s): E83.52 - HYPERCALCEMIA (2) Multiple myeloma Code(s): C90.00 - MULTIPLE MYELOMA NOT HAVING ACHIEVED REMISSION (3) Spine fracture Code(s): UAS7611 - Assessment/Plan Current Medications Generic Name Dose Route Start Last Admin Trade Name Freq PRN Reason Stop Dose Admin Amlodipine Besylate 5 mg 01/03/20 12:30 01/05/20 09:41 Norvasc - PO 5 mg DAILY [facility] Administration Aspirin 81 mg 01/04/20 10:00 01/05/20 09:41 Ecotrin - PO 81 mg DAILY [facility] Administration Atorvastatin Calcium 40 mg 01/03/20 22:00 01/04/20 21:37 Lipitor - PO 40 mg HS [facility] Administration Enoxaparin Sodium 40 mg 01/03/20 12:45 01/05/20 09:41 Lovenox - SQ 40 mg DAILY [facility] Administration Gabapentin 100 mg 01/04/20 22:00 01/05/20 13:19 Neurontin - PO 100 mg TID [facility] Administration Sodium Chloride 1,000 mls @ 100 mls/hr 01/04/20 13:31 01/05/20 14:08 Normal Saline - IV Not Given ASDIR [facility] Insulin Aspart 1 vial 01/03/20 16:30 01/05/20 16:53 Novolog Vial Sliding Scale - SQ Not Given TIDAC [facility] Protocol Lisinopril 10 mg 01/03/20 12:30 01/05/20 09:41 Prinivil PO 10 mg DAILY [facility] Administration Metoprolol Succinate 50 mg 01/03/20 12:30 01/05/20 09:41 Toprol Xl - PO 50 mg DAILY [facility] Administration Oxycodone HCl 5 mg 01/05/20 11:28 01/05/20 14:08 Roxicodone - PO 5 mg Q6H PRN Administration PAIN LEVEL 4 - 6 Potassium Phos/Sodium Phos 1 packet 01/04/20 13:45 01/05/20 09:41 Phos-Nak Packet - PO 1 packet BID [facility] Administration Impression 1. hypercalcemia 2. multiple myelpma 3. htn 4. hld 5. dm 6. hypokalemia 7. compression fractures 8. CKD Plan - repeat labs in a - cont fluids - monitor calcium - oncology follow up - s/p zometa
[2020-01-05] MEDS: ATORVASTATIN CA 40 MG TABLET (FP) PO SCH (21:56)
[2020-01-06] MEDS: GABAPENTIN 100 MG CAPSULE PO SCH (07:16)
[2020-01-06] MEDS: INSULIN SLIDING SCALE (NOVOLOG) 1 VIAL SQ SCH ×3 (07:16→16:58)
[2020-01-06 08:17] LABS: HEMATOCRIT 24.9 % (32.4-45.2); HEMOGLOBIN 8.1 GM/dL (10.7-15.3); MCH 28.1 pg (25.7-33.7); MCHC 32.5 g/dl (32.0-36.0); MEAN CELL VOLUME 86.5 fl (80-96); MEAN PLT VOLUME 6.9 fl (7.5-11.1); PLATELET COUNT 262 K/MM3 (134-434); RBC 2.88 M/mm3 (3.60-5.2); RDW 15.3 % (11.6-15.6); WHITE BLOOD COUNT 10.3 K/mm3 (4.0-10.0)
[2020-01-06 08:39] LABS: BLOOD UREA NITROGEN 9.6 mg/dL (7-18); CALCIUM 8.1 mg/dL (8.5-10.1); CREATININE 0.8 mg/dL (0.55-1.3); MAGNESIUM 1.5 mg/dL (1.8-2.4); PHOSPHOROUS 1.7 mg/dL (2.5-4.9); POTASSIUM 3.4 mmol/L (3.5-5.1)
[2020-01-06] MEDS ORDERED: POTASSIUM PHOSPHATE 30 MM in SODIUM CHLORIDE 500 ML IVPB ONE (09:00)
[2020-01-06] MEDS ORDERED: POTASSIUM CHLORIDE TABS 20 MEQ TABLET.ER (FP) PO ONE (09:00)
[2020-01-06] MEDS ORDERED: MAGNESIUM SULF 50% (8.12 MEQ/2 ML-1 GM VIAL) IVPB ONE (09:01)
[2020-01-06] MEDS: ENOXAPARIN NA (PORCINE) 40 MG/0.4 ML DISP.SYRIN SQ SCH (09:34)
[2020-01-06] MEDS: NAPH,MB-DB/K PH,MBDB POWDER PACKET PO SCH ×2 (09:35→21:38)
[2020-01-06] MEDS: amLODIPine BESYLATE 5 MG TABLET (FP) PO SCH (09:35)
[2020-01-06] MEDS: LISINOPRIL 10 MG TABLET (FP) PO SCH (09:35)
[2020-01-06] MEDS: ASPIRIN COATED 81 MG TABLET.EC PO SCH (09:35)
--- NOTE | 2020-01-06 09:58 | PN ---
Progress Note (short form) - Note Progress Note: NEUROSURGERY H/o hypertension, hyperlipidemia, diabetes, recently diagnosed multiple myeloma with R humerus pathological fx c/o midline back pain. MRI on 12-29 showed multiple compression fractures at T11, L1 without spinal cord impingement. Pain in back worse today . PE: Tmax 99.5, AF, VSS HEENT- NC/AT; Neck- supple; Cor- RR; Lungs- CTA B; Abd- benign; Ext- no sign of DVT CN- intact; Motor- $+/5 pain limited; Sensation- intact LT; DTR- hyporeflexia/symmetric Diffuse multifocal vertebral MM (h/o R humerus MM with pathological fx) L4-5 degenerative spondylolisthesis with stenosis Neurosurgical intervention not indicated nor recommended for such extensive dz Palliative RT for pain control Med onc f/u Pain meds
[2020-01-06] MEDS ORDERED: POTASSIUM CHLORIDE ORAL LIQUID 20 MEQ/15 ML PO ONE (10:49)
[2020-01-06] MEDS ORDERED: INSULIN (NOVOLOG) ASPART 100 UNITS/ML 10ML VIAL ONE (11:15)
[2020-01-06] MEDS ORDERED: PT OWN MED DRAWER 7, Y5N ONE (11:59)
[2020-01-06] MEDS: oxyCODONE HCL 5 MG TABLET PO PRN ×2 (12:00→18:55)
[2020-01-06] MEDS: SODIUM CHLORIDE 1,000 ML IV SCH (12:02)
[2020-01-06] MEDS: GABAPENTIN 300 MG CAPSULE PO SCH ×2 (13:51→21:37)
--- NOTE | 2020-01-06 15:59 | PN ---
Progress Note, Physician History of Present Illness: Pt seen and examined at bedside. She is awake and appears comfortable. - Current Medication List Current Medications: Active Medications Amlodipine Besylate (Norvasc -) 5 mg PO DAILY [facility] Last Admin: 01/06/20 09:35 Dose: 5 mg Documented by: Aspirin (Ecotrin -) 81 mg PO DAILY [facility] Last Admin: 01/06/20 09:35 Dose: 81 mg Documented by: Atorvastatin Calcium (Lipitor -) 40 mg PO HS [facility] Last Admin: 01/05/20 21:56 Dose: 40 mg Documented by: Enoxaparin Sodium (Lovenox -) 40 mg SQ DAILY [facility] Last Admin: 01/06/20 09:34 Dose: 40 mg Documented by: Gabapentin (Neurontin -) 300 mg PO TID [facility] Last Admin: 01/06/20 13:51 Dose: 300 mg Documented by: Sodium Chloride (Normal Saline -) 1,000 mls @ 100 mls/hr IV ASDIR [facility] Last Admin: 01/06/20 12:02 Dose: 100 mls/hr Documented by: Potassium Phosphate 30 mm/ (Sodium Chloride) 510 mls @ 62.5 mls/hr IVPB ONCE ONE Stop: 01/06/20 17:09 Last Admin: 01/06/20 12:01 Dose: 62.5 mls/hr Documented by: Insulin Aspart (Novolog Vial Sliding Scale -) 1 vial SQ TIDAC [facility]; Protocol Last Admin: 01/06/20 11:28 Dose: 1 unit Documented by: Lisinopril (Prinivil) 10 mg PO DAILY [facility] Last Admin: 01/06/20 09:35 Dose: 10 mg Documented by: Metoprolol Succinate (Toprol Xl -) 50 mg PO DAILY [facility] Last Admin: 01/06/20 09:36 Dose: 50 mg Documented by: Oxycodone HCl (Roxicodone -) 5 mg PO Q6H PRN PRN Reason: PAIN LEVEL 4 - 6 Last Admin: 01/06/20 12:00 Dose: 5 mg Documented by: Potassium Phos/Sodium Phos (Phos-Nak Packet -) 1 packet PO BID [facility] Last Admin: 01/06/20 09:35 Dose: 1 packet Documented by: - Objective Vital Signs: Vital Signs Temperature 99.5 F 01/06/20 14:20 Pulse Rate 89 01/06/20 14:20 Respiratory Rate 18 07/03/20 14:20 Blood Pressure 153/76 01/06/20 14:20 O2 Sat by Pulse Oximetry (%) 94 L 01/06/20 10:00 Constitutional: Yes: Calm Eyes: Yes: Conjunctiva Clear HENT: Yes: Atraumatic Neck: Yes: Supple Cardiovascular: Yes: S1, S2 Respiratory: Yes: CTA Bilaterally Gastrointestinal: Yes: Soft Genitourinary: Yes: WNL Edema: No Neurological: Yes: Oriented Labs: CBC, BMP 01/06/20 07:35 01/06/20 07:35 INR, PTT INR 1.03 (0.83-1.09) 01/03/20 10:00 Problem List - Problems (1) Hypercalcemia Code(s): E83.52 - HYPERCALCEMIA (2) Multiple myeloma Code(s): C90.00 - MULTIPLE MYELOMA NOT HAVING ACHIEVED REMISSION (3) Spine fracture Code(s): ETV4889 - Assessment/Plan Current Medications Generic Name Dose Route Start Last Admin Trade Name Freq PRN Reason Stop Dose Admin Amlodipine Besylate 5 mg 01/03/20 12:30 01/06/20 09:35 Norvasc - PO 5 mg DAILY [facility] Administration Aspirin 81 mg 01/04/20 10:00 01/06/20 09:35 Ecotrin - PO 81 mg DAILY [facility] Administration Atorvastatin Calcium 40 mg 01/03/20 22:00 01/05/20 21:56 Lipitor - PO 40 mg HS [facility] Administration Enoxaparin Sodium 40 mg 01/03/20 12:45 01/06/20 09:34 Lovenox - SQ 40 mg DAILY [facility] Administration Gabapentin 300 mg 01/06/20 14:00 01/06/20 13:51 Neurontin - PO 300 mg TID [facility] Administration Sodium Chloride 1,000 mls @ 100 mls/hr 01/04/20 13:31 01/06/20 12:02 Normal Saline - IV 100 mls/hr ASDIR [facility] Administration Potassium Phosphate 30 mm/ 510 mls @ 62.5 mls/hr 01/06/20 09:00 01/06/20 12:01 Sodium Chloride IVPB 01/06/20 17:09 62.5 mls/hr ONCE ONE Administration Insulin Aspart 1 vial 01/03/20 16:30 01/06/20 11:28 Novolog Vial Sliding Scale - SQ 1 unit TIDAC [facility] Administration Protocol Lisinopril 10 mg 01/03/20 12:30 01/06/20 09:35 Prinivil PO 10 mg DAILY [facility] Administration Metoprolol Succinate 50 mg 01/03/20 12:30 01/06/20 09:36 Toprol Xl - PO 50 mg DAILY [facility] Administration Oxycodone HCl 5 mg 01/05/20 11:28 01/06/20 12:00 Roxicodone - PO 5 mg Q6H PRN Administration PAIN LEVEL 4 - 6 Potassium Phos/Sodium Phos 1 packet 01/04/20 13:45 01/06/20 09:35 Phos-Nak Packet - PO 1 packet BID [facility] Administration Laboratory Tests 01/06/20 07:35 Creatinine 0.8 Laboratory Tests 01/06/20 07:35 Potassium 3.4 L Phosphorus 1.7 L Magnesium 1.5 L Impression 1. hypercalcemia 2. multiple myelpma 3. htn 4. hld 5. dm 6. hypokalemia 7. compression fractures 8. CKD Plan - can stop fluids - replace phos, mag, potassium - monitor lytes - will need oncology follow up - can with me as outpt - renal function stable - s/p zometa - will follow prn
--- NOTE | 2020-01-06 16:26 | PN ---
Progress Note (short form) - Note Progress Note: SUBJECTIVE: Ongoing back discomfort on ambulation, improving with Oxycodone. No LE weakness/numbness/tingling or incontinence. OBJECTIVE: Afebrile, hemodynamically Stable. Last Vital Signs Temp Pulse Resp BP Pulse Ox 99.5 F 89 18 153/76 94 L 01/06/20 14:20 01/06/20 14:20 01/06/20 14:20 01/06/20 14:20 01/06/20 10:00 Heart - S1, S2, RRR Lungs - clear to auscultation Abdomen - Soft, non-tender. Bowel Sounds normal. Extremities - no edema, no calf tenderness. Neuro - AAO x 3. Tone/power normal all extremities. Laboratory Results - last 24 hr 01/05/20 01/06/20 01/06/20 16:48 07:14 07:35 WBC 10.3 H RBC 2.88 L Hgb 8.1 L Hct 24.9 L MCV 86.5 MCH 28.1 MCHC 32.5 RDW 15.3 Plt Count 262 MPV 6.9 L Sodium Potassium Chloride Carbon Dioxide Anion Gap BUN Creatinine Est GFR (CKD-EPI)AfAm Est GFR (CKD-EPI)NonAf POC Glucometer 124 137 Random Glucose Calcium Phosphorus Magnesium 01/06/20 01/06/20 07:35 11:25 WBC RBC Hgb Hct MCV MCH MCHC RDW Plt Count MPV Sodium 141 Potassium 3.4 L Chloride 107 Carbon Dioxide 22 Anion Gap 11 BUN 9.6 Creatinine 0.8 Est GFR (CKD-EPI)AfAm 85.97 Est GFR (CKD-EPI)NonAf 74.17 POC Glucometer 160 Random Glucose 141 H Calcium 8.1 L Phosphorus 1.7 L Magnesium 1.5 L Current Medications Generic Name Dose Route Start Last Admin Trade Name Freq PRN Reason Stop Dose Admin Amlodipine Besylate 5 mg 01/03/20 12:30 01/06/20 09:35 Norvasc - PO 5 mg DAILY [facility] Administration Aspirin 81 mg 01/04/20 10:00 01/06/20 09:35 Ecotrin - PO 81 mg DAILY [facility] Administration Atorvastatin Calcium 40 mg 01/03/20 22:00 01/05/20 21:56 Lipitor - PO 40 mg HS [facility] Administration Enoxaparin Sodium 40 mg 01/03/20 12:45 01/06/20 09:34 Lovenox - SQ 40 mg DAILY [facility] Administration Gabapentin 300 mg 01/06/20 14:00 01/06/20 13:51 Neurontin - PO 300 mg TID [facility] Administration Potassium Phosphate 30 mm/ 510 mls @ 62.5 mls/hr 01/06/20 09:00 01/06/20 12:01 Sodium Chloride IVPB 01/06/20 17:09 62.5 mls/hr ONCE ONE Administration Insulin Aspart 1 vial 01/03/20 16:30 01/06/20 11:28 Novolog Vial Sliding Scale - SQ 1 unit TIDAC [facility] Administration Protocol Lisinopril 10 mg 01/03/20 12:30 01/06/20 09:35 Prinivil PO 10 mg DAILY [facility] Administration Metoprolol Succinate 50 mg 01/03/20 12:30 01/06/20 09:36 Toprol Xl - PO 50 mg DAILY [facility] Administration Oxycodone HCl 5 mg 01/05/20 11:28 01/06/20 12:00 Roxicodone - PO 5 mg Q6H PRN Administration PAIN LEVEL 4 - 6 Potassium Phos/Sodium Phos 1 packet 01/04/20 13:45 01/06/20 09:35 Phos-Nak Packet - PO 1 packet BID [facility] Administration Home Medications Medication Instructions Recorded Amlodipine Besylate/Benazepril 1 cap PO DAILY 06/15/17 [Lotrel 5-10 mg Capsule] Atorvastatin Ca [Lipitor] 40 mg PO HS 06/15/17 Metoprolol Succinate [Toprol Xl] 50 mg PO DAILY 06/15/17 Sitagliptin Phos/Metformin HCl 1 each PO BID 06/15/17 [Janumet 50-1,000 mg Tablet] Aspirin Coated [Ecotrin -] 81 mg PO DAILY 07/02/17 Allopurinol 300 mg PO DAILY 01/05/20 Ergocalciferol (Vitamin D2) 50,000 unit PO WEEKLY 01/05/20 [Vitamin D2] Glimepiride [Amaryl -] 4 mg PO DAILY@0700 01/05/20 Hydralazine HCl 50 mg PO BID 01/05/20 Naproxen 375 mg PO BID 01/05/20 ASSESSMENT AND PLAN: 69 year old male with history of HTN, HLD, DM 2, recently diagnosed MM (follows with Dr. Lerma), presented with back pain, limiting mobility and ability to reach bathroom in time. She denies LE weakness or incontinence. She was found to have multiple spinal vertebral pathologic fractures. MRI T/L Spine - multiple compression fractures at T11, L4-L5 without spinal cord impingement. L4-5 degenerative spondylolisthesis with stenosis 1. Multilevel T/L Spine pathologic fractures secondary to MM No evidence of spinal cord compression. Seen by Oncology, Rad-Onc, Neurosurgery As per Neurosurgery - No surgical intervention recommended due to extensive disease. Rad-Onc recommends palliative RTx as out-patient. Analgesia with trial of oxycodone. Pain Management referral. PT and discharge home if ambulating well. 2. MM with Hypercalcemia and Hyperuricemia Seen by Nephrology for Hypercalcemia - IV hydration stopped. s/p Bisphosphonate/Calcitonin. Hypercalcemia improved. 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 3. HTN - initially uncontrolled due to pain. Now improved on home meds Norvasc, MARTIN-I, and Metoprolol. 4. HLD - continue Statin. 5. DM 2 - Novolog as per sliding scale. 6. Hypokalemia/Hypophosphatemia/Hypomagnesemia - repleted. DVT Px - Lovenox SQ. Dispo on Oxycodone - pending PT eval and Oncology plan/clearance. Visit type - Emergency Visit Emergency Visit: Yes ED Registration Date: 01/03/20 Care time: The patient presented to the Emergency Department on the above date and was hospitalized for further evaluation of their emergent condition. - New Patient This patient is new to me today: No - Critical Care Critical Care patient: No - Discharge Referral Referred to [facility] Med P.C.: No
--- NOTE | 2020-01-06 19:41 | PN.HO ---
Progress Note (short form) - Note Progress Note: Patient seen and examined c/o difficulty ambulating c/o weakness in lower extremities Last Vital Signs Temp Pulse Resp BP Pulse Ox 98.7 F 86 18 156/80 94 L 01/06/20 19:32 01/06/20 19:32 01/06/20 19:32 01/06/20 19:32 01/06/20 10:00 Cor: RSR, No murmurs, No gallops Lungs: Clear to P&A Abd: Soft, Normal bowel sounds, No organomegaly Ext:No significant edema LAbd/Meds reviewed A/P Multiple myeloma with multiple pathologic vetebral compression fractures, most symptomatic at T4, T11 and L4 and L5 Pathologic compression fractures/ thecal sac compression T4/11, L4/5 on MRI done 12/29. Also degenerative central canal stenosis k/L ratio 6000s s/p zometa 01/02 Pain controlled Will need RT Will need to start velcade/revlimid/dexamethasone will discuss with primary team Discussed with patient
[2020-01-06] MEDS: ATORVASTATIN CA 40 MG TABLET (FP) PO SCH (21:38)
[2020-01-07] MEDS: oxyCODONE HCL 5 MG TABLET PO PRN ×3 (06:03→21:26)
[2020-01-07] MEDS: GABAPENTIN 300 MG CAPSULE PO SCH ×3 (06:04→21:27)
[2020-01-07] MEDS: INSULIN SLIDING SCALE (NOVOLOG) 1 VIAL SQ SCH ×3 (06:05→16:55)
[2020-01-07] MEDS: SODIUM CHLORIDE 1,000 ML IV SCH ×2 (06:19→23:45)
[2020-01-07] MEDS: ENOXAPARIN NA (PORCINE) 40 MG/0.4 ML DISP.SYRIN SQ SCH (10:10)
[2020-01-07] MEDS: NAPH,MB-DB/K PH,MBDB POWDER PACKET PO SCH ×2 (10:10→21:26)
[2020-01-07] MEDS: amLODIPine BESYLATE 5 MG TABLET (FP) PO SCH (10:10)
[2020-01-07] MEDS: ASPIRIN COATED 81 MG TABLET.EC PO SCH (10:10)
[2020-01-07] MEDS: LISINOPRIL 10 MG TABLET (FP) PO SCH (10:10)
[2020-01-07 13:01] LABS: BASO % 0.7 % (0-2.0); HEMATOCRIT 23.5 % (32.4-45.2); HEMOGLOBIN 7.8 GM/dL (10.7-15.3); LYMPH % 20.3 % (8-40); MCH 29.1 pg (25.7-33.7); MCHC 33.3 g/dl (32.0-36.0); MEAN CELL VOLUME 87.4 fl (80-96); MEAN PLT VOLUME 7.5 fl (7.5-11.1); MONO % 6.3 % (3.8-10.2); NEUT % 71.7 % (42.8-82.8); PLATELET COUNT 263 K/MM3 (134-434); RBC 2.69 M/mm3 (3.60-5.2); RDW 15.9 % (11.6-15.6)
[2020-01-07 13:08] LABS: ALBUMIN 2.6 g/dl (3.4-5.0); BILIRUBIN,TOTAL 0.4 mg/dL (0.2-1); BLOOD UREA NITROGEN 13.4 mg/dL (7-18); CALCIUM 7.5 mg/dL (8.5-10.1); CREATININE 0.9 mg/dL (0.55-1.3); MAGNESIUM 1.9 mg/dL (1.8-2.4); PHOSPHOROUS 1.8 mg/dL (2.5-4.9); POTASSIUM 3.7 mmol/L (3.5-5.1); TOT PROT 7.4 g/dl (6.4-8.2)
[2020-01-07] MEDS ORDERED: ALLOPURINOL 100 MG TABLET (FP) PO SCH (16:30)
[2020-01-07] MEDS ORDERED: POTASSIUM PHOSPHATE 15 MM in SODIUM CHLORIDE 250 ML IVPB ONE (16:36)
--- NOTE | 2020-01-07 16:36 | PN ---
Teaching Attending Note Name of Resident: Viktor Escobar ATTENDING PHYSICIAN STATEMENT I saw and evaluated the patient. I reviewed the resident's note and discussed the case with the resident. I agree with the resident's findings and plan as documented. SUBJECTIVE: Back discomfort improving with Oxycodone but still limiting mobility. No LE weakness/numbness/tingling or incontinence. OBJECTIVE: Afebrile, hemodynamically Stable. Last Vital Signs Temp Pulse Resp BP Pulse Ox 98.9 F 83 18 153/81 95 01/07/20 13:51 01/07/20 13:51 01/07/20 13:51 01/07/20 13:51 01/07/20 09:29 Heart - S1, S2, RRR Lungs - clear to auscultation Abdomen - Soft, non-tender. Bowel Sounds normal. Extremities - no edema, no calf tenderness. Neuro - AAO x 3. Tone/power normal all extremities. Laboratory Results - last 24 hr 01/06/20 01/07/20 01/07/20 16:57 05:50 10:40 WBC 9.0 RBC 2.69 L Hgb 7.8 L Hct 23.5 L MCV 87.4 MCH 29.1 MCHC 33.3 RDW 15.9 H Plt Count 263 MPV 7.5 Absolute Neuts (auto) 6.4 Neutrophils % 71.7 Lymphocytes % 20.3 Monocytes % 6.3 Eosinophils % 1.0 D Basophils % 0.7 Nucleated RBC % 0 Sodium Potassium Chloride Carbon Dioxide Anion Gap BUN Creatinine Est GFR (CKD-EPI)AfAm Est GFR (CKD-EPI)NonAf POC Glucometer 163 135 Random Glucose Calcium Phosphorus Magnesium Total Bilirubin AST ALT Alkaline Phosphatase Total Protein Albumin 01/07/20 01/07/20 10:40 12:02 WBC RBC Hgb Hct MCV MCH MCHC RDW Plt Count MPV Absolute Neuts (auto) Neutrophils % Lymphocytes % Monocytes % Eosinophils % Basophils % Nucleated RBC % Sodium 142 Potassium 3.7 Chloride 109 H Carbon Dioxide 20 L Anion Gap 12 BUN 13.4 Creatinine 0.9 Est GFR (CKD-EPI)AfAm 74.56 Est GFR (CKD-EPI)NonAf 64.33 POC Glucometer 168 Random Glucose 208 H Calcium 7.5 L Phosphorus 1.8 L Magnesium 1.9 Total Bilirubin 0.4 AST 15 ALT 15 Alkaline Phosphatase 72 Total Protein 7.4 Albumin 2.6 L Current Medications Generic Name Dose Route Start Last Admin Trade Name Freq PRN Reason Stop Dose Admin Allopurinol 300 mg 01/08/20 10:00 Zyloprim - PO DAILY [facility] Amlodipine Besylate 5 mg 01/03/20 12:30 01/07/20 10:10 Norvasc - PO 5 mg DAILY [facility] Administration Aspirin 81 mg 01/04/20 10:00 01/07/20 10:10 Ecotrin - PO 81 mg DAILY [facility] Administration Atorvastatin Calcium 40 mg 01/03/20 22:00 01/06/20 21:38 Lipitor - PO 40 mg HS [facility] Administration Enoxaparin Sodium 40 mg 01/03/20 12:45 01/07/20 10:10 Lovenox - SQ 40 mg DAILY [facility] Administration Gabapentin 300 mg 01/06/20 14:00 01/07/20 13:55 Neurontin - PO 300 mg TID [facility] Administration Insulin Aspart 1 vial 01/03/20 16:30 01/07/20 12:03 Novolog Vial Sliding Scale - SQ 1 unit TIDAC [facility] Administration Protocol Lisinopril 10 mg 01/03/20 12:30 01/07/20 10:10 Prinivil PO 10 mg DAILY [facility] Administration Metoprolol Succinate 50 mg 01/03/20 12:30 01/07/20 10:10 Toprol Xl - PO 50 mg DAILY [facility] Administration Oxycodone HCl 5 mg 01/05/20 11:28 01/07/20 13:59 Roxicodone - PO 5 mg Q6H PRN Administration PAIN LEVEL 4 - 6 Potassium Phos/Sodium Phos 1 packet 01/04/20 13:45 01/07/20 10:10 Phos-Nak Packet - PO 1 packet BID [facility] Administration Home Medications Medication Instructions Recorded Amlodipine Besylate/Benazepril 1 cap PO DAILY 06/15/17 [Lotrel 5-10 mg Capsule] Atorvastatin Ca [Lipitor] 40 mg PO HS 06/15/17 Metoprolol Succinate [Toprol Xl] 50 mg PO DAILY 06/15/17 Sitagliptin Phos/Metformin HCl 1 each PO BID 06/15/17 [Janumet 50-1,000 mg Tablet] Aspirin Coated [Ecotrin -] 81 mg PO DAILY 07/02/17 Allopurinol 300 mg PO DAILY 01/05/20 Ergocalciferol (Vitamin D2) 50,000 unit PO WEEKLY 01/05/20 [Vitamin D2] Glimepiride [Amaryl -] 4 mg PO DAILY@0700 01/05/20 Hydralazine HCl 50 mg PO BID 01/05/20 Naproxen 375 mg PO BID 01/05/20 ASSESSMENT AND PLAN: 69 year old male with history of HTN, HLD, DM 2, recently diagnosed MM (follows with Dr. Lerma), presented with back pain, limiting mobility and ability to reach bathroom in time. She denies LE weakness or incontinence. She was found to have multiple spinal vertebral pathologic fractures. MRI T/L Spine - multiple compression fractures at T11, L4-L5 without spinal cord impingement. L4-5 degenerative spondylolisthesis with stenosis 1. Multilevel T/L Spine pathologic fractures secondary to MM No evidence of spinal cord compression. Seen by Oncology, Rad-Onc, Neurosurgery As per Neurosurgery - No surgical intervention recommended due to extensive disease. Rad-Onc recommends palliative RTx - discussed with Dr. Call who thinks this should be done as in-patient. As per Dr. Call, patient should also start on Dexa, Revlimid, Velcade. Further treatment plan as per Oncology. Analgesia with trial of oxycodone. Pain Management referral. 2. MM with Hypercalcemia and Hyperuricemia Seen by Nephrology for Hypercalcemia - IV hydration stopped. s/p Bisphosphonate/Calcitonin. Hypercalcemia improved. 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 Hematology/Oncology to further guide further management. 3. HTN - initially uncontrolled due to pain. Now improved on home meds Norvasc, MARTIN-I, and Metoprolol. 4. HLD - continue Statin. 5. DM 2 - Novolog as per sliding scale. 6. Hypokalemia/Hypophosphatemia/Hypomagnesemia - repleted. DVT Px - Lovenox SQ. Dispo - depending on Oncology plan for Rx.
[2020-01-07] MEDS ORDERED: POTASSIUM PHOSPHATE 30 MM in SODIUM CHLORIDE 500 ML IVPB ONE (18:00)
[2020-01-07] MEDS ORDERED: POTASSIUM PHOSPHATE 30 MM in SODIUM CHLORIDE 250 ML IVPB ONE (18:00)
[2020-01-07] MEDS ORDERED: POLYETHYLENE GLYCOL 3350 119 GM BTL PO PRN (18:09)
[2020-01-07] MEDS: SENNOSIDES 8.6MG TABLET (FP) PO SCH (21:26)
[2020-01-07] MEDS: DOCUSATE SODIUM 100 MG CAPSULE (FP) PO SCH (21:26)
[2020-01-07] MEDS: ATORVASTATIN CA 40 MG TABLET (FP) PO SCH (21:27)
--- NOTE | 2020-01-07 22:40 | PN.HO ---
Progress Note (short form) - Note Progress Note: Patient seen and examined c/o difficulty ambulating c/o weakness in lower extremities Last Vital Signs Temp Pulse Resp BP Pulse Ox 98.7 F 86 18 156/80 94 L 01/06/20 19:32 01/06/20 19:32 01/06/20 19:32 01/06/20 19:32 01/06/20 10:00 Cor: RSR, No murmurs, No gallops Lungs: Clear to P&A Abd: Soft, Normal bowel sounds, No organomegaly Ext:No significant edema LAbd/Meds reviewed A/P Multiple myeloma with multiple pathologic vetebral compression fractures, most symptomatic at T4, T11 and L4 and L5 Pathologic compression fractures/ thecal sac compression T4/11, L4/5 on MRI done 12/29. Also degenerative central canal stenosis will check MRI C spine k/L ratio 6000s s/p zometa 01/02 Pain controlled Will need RT /IR input about kyphoplasty Will need to start velcade/revlimid/dexamethasone , coordinate therapy around RT. Discussed with patient --- to start allopurinol/ hydration for elevated uric acid discussed with primary team
[2020-01-08] MEDS: GABAPENTIN 300 MG CAPSULE PO SCH ×3 (05:51→22:14)
[2020-01-08] MEDS: INSULIN SLIDING SCALE (NOVOLOG) 1 VIAL SQ SCH ×3 (06:07→17:15)
[2020-01-08] MEDS: oxyCODONE HCL 5 MG TABLET PO PRN ×2 (08:22→17:34)
[2020-01-08] MEDS: ENOXAPARIN NA (PORCINE) 40 MG/0.4 ML DISP.SYRIN SQ SCH (09:12)
[2020-01-08] MEDS: NAPH,MB-DB/K PH,MBDB POWDER PACKET PO SCH ×2 (09:12→22:15)
[2020-01-08] MEDS: LISINOPRIL 10 MG TABLET (FP) PO SCH (09:12)
[2020-01-08] MEDS: DOCUSATE SODIUM 100 MG CAPSULE (FP) PO SCH ×2 (09:12→22:14)
[2020-01-08] MEDS: amLODIPine BESYLATE 5 MG TABLET (FP) PO SCH (09:12)
[2020-01-08] MEDS: ASPIRIN COATED 81 MG TABLET.EC PO SCH (09:12)
[2020-01-08] MEDS: ALLOPURINOL 300 MG TABLET (FP) PO SCH (09:13)
[2020-01-08] MEDS: SENNOSIDES 8.6MG TABLET (FP) PO SCH ×2 (09:13→22:15)
[2020-01-08] MEDS ORDERED: DEXAMETHASONE SOD PHOSPHATE 10 MG/1 ML VIAL IVPB SCH (10:00)
--- NOTE | 2020-01-08 11:36 | PN ---
Progress Note (short form) - Note Progress Note: NEUROSURGERY H/o hypertension, hyperlipidemia, diabetes, recently diagnosed multiple myeloma with R humerus pathological fx c/o midline back pain. Walked with PT yesterday. Sitting up in chair today. IN good spirit. PE: Tmax 99.5, AF, VSS HEENT- NC/AT; Neck- supple; Cor- RR; Lungs- CTA B; Abd- benign; Ext- no sign of DVT CN- intact; Motor- $+/5 pain limited; Sensation- intact LT; DTR- hyporeflexia/symmetric Diffuse multifocal vertebral MM (h/o R humerus MM with pathological fx) L4-5 degenerative spondylolisthesis with stenosis Neurosurgical intervention not indicated nor recommended for such extensive dz Discussed possibility of TLSO though will not be as easily tolerated as the low back brace Palliative RT for pain control On gabapentin 300 tid Med onc f/u Pain meds
[2020-01-08 12:34] LABS: BASO % 0.8 % (0-2.0); EOS % 1.2 % (0-4.5); HEMATOCRIT 23.4 % (32.4-45.2); HEMOGLOBIN 7.7 GM/dL (10.7-15.3); LYMPH % 21.9 % (8-40); MCH 28.7 pg (25.7-33.7); MEAN CELL VOLUME 86.8 fl (80-96); MEAN PLT VOLUME 6.8 fl (7.5-11.1); MONO % 7.4 % (3.8-10.2); NEUT % 68.7 % (42.8-82.8); PLATELET COUNT 289 K/MM3 (134-434); RDW 16.1 % (11.6-15.6); WHITE BLOOD COUNT 9.5 K/mm3 (4.0-10.0)
[2020-01-08 13:07] LABS: ALBUMIN 2.8 g/dl (3.4-5.0); BILIRUBIN,TOTAL 0.2 mg/dL (0.2-1); BLOOD UREA NITROGEN 16.3 mg/dL (7-18); CALCIUM 7.3 mg/dL (8.5-10.1); CREATININE 0.9 mg/dL (0.55-1.3); TOT PROT 7.9 g/dl (6.4-8.2); URIC ACID 3.1 mg/dL (2.6-7.2)
--- NOTE | 2020-01-08 14:39 | PN.HO ---
Progress Note (short form) - Note Progress Note: Patient seen and examined c/o difficulty ambulating c/o weakness in lower extremities Last Vital Signs Temp Pulse Resp BP Pulse Ox 98.7 F 86 18 156/80 94 L 01/06/20 19:32 01/06/20 19:32 01/06/20 19:32 01/06/20 19:32 01/06/20 10:00 Last Vital Signs Temp Pulse Resp BP Pulse Ox 98.6 F 74 20 141/64 95 01/08/20 13:33 01/08/20 13:33 01/08/20 13:33 01/08/20 13:33 01/08/20 10:00 Cor: RSR, No murmurs, No gallops Lungs: Clear to P&A Abd: Soft, Normal bowel sounds, No organomegaly Ext:No significant edema LAbd/Meds reviewed A/P Multiple myeloma with multiple pathologic vetebral compression fractures, most symptomatic at T4, T11 and L4 and L5 Pathologic compression fractures/ thecal sac compression T4/11, L4/5 on MRI done 12/29. Also degenerative central canal stenosis will check MRI C spine k/L ratio 6000s Pain controlled Will need RT /IR input about kyphoplasty Will need to start velcade/revlimid/dexamethasone , coordinate therapy around RT. started allopurinol start dexamethasoe 40mg weekly with velcade. to coordinate revlimid around RT. Discussed detials of the regimen with patient/consent obtained/ add velcade s/p zometa 01/02 add protonix will discuss with rad-onc/IR
--- NOTE | 2020-01-08 14:46 | PN ---
Progress Note (short form) - Note Progress Note: SUBJECTIVE: Back discomfort improving with Oxycodone and lower back brace. No LE weakness/numbness/tingling or incontinence. OBJECTIVE: Afebrile, Hemodynamically Stable. Last Vital Signs Temp Pulse Resp BP Pulse Ox 98.6 F 74 20 141/64 95 01/08/20 13:33 01/08/20 13:33 01/08/20 13:33 01/08/20 13:33 01/08/20 10:00 Heart - S1, S2, RRR Lungs - clear to auscultation Abdomen - Soft, non-tender. Bowel Sounds normal. Extremities - no edema, no calf tenderness. Neuro - AAO x 3. Tone/Power normal all extremities. Laboratory Results - last 24 hr 01/07/20 01/08/20 01/08/20 16:54 05:52 12:15 WBC RBC Hgb Hct MCV MCH MCHC RDW Plt Count MPV Absolute Neuts (auto) Neutrophils % Lymphocytes % Monocytes % Eosinophils % Basophils % Nucleated RBC % Sodium 140 Potassium 4.0 Chloride 110 H Carbon Dioxide 18 L Anion Gap 12 BUN 16.3 Creatinine 0.9 Est GFR (CKD-EPI)AfAm 74.56 Est GFR (CKD-EPI)NonAf 64.33 POC Glucometer 140 136 Random Glucose 206 H Uric Acid 3.1 Calcium 7.3 L Total Bilirubin 0.2 AST 25 ALT 24 Alkaline Phosphatase 83 LD Total 169 Total Protein 7.9 Albumin 2.8 L 01/08/20 12:15 WBC 9.5 RBC 2.70 L Hgb 7.7 L Hct 23.4 L MCV 86.8 MCH 28.7 MCHC 33.0 RDW 16.1 H Plt Count 289 MPV 6.8 L Absolute Neuts (auto) 6.5 Neutrophils % 68.7 Lymphocytes % 21.9 Monocytes % 7.4 Eosinophils % 1.2 Basophils % 0.8 Nucleated RBC % 0 Sodium Potassium Chloride Carbon Dioxide Anion Gap BUN Creatinine Est GFR (CKD-EPI)AfAm Est GFR (CKD-EPI)NonAf POC Glucometer Random Glucose Uric Acid Calcium Total Bilirubin AST ALT Alkaline Phosphatase LD Total Total Protein Albumin Current Medications Generic Name Dose Route Start Last Admin Trade Name Freq PRN Reason Stop Dose Admin Allopurinol 300 mg 01/08/20 10:00 01/08/20 09:13 Zyloprim - PO 300 mg DAILY [facility] Administration Amlodipine Besylate 5 mg 01/03/20 12:30 01/08/20 09:12 Norvasc - PO 5 mg DAILY [facility] Administration Aspirin 81 mg 01/04/20 10:00 01/08/20 09:12 Ecotrin - PO 81 mg DAILY [facility] Administration Atorvastatin Calcium 40 mg 01/03/20 22:00 01/07/20 21:27 Lipitor - PO 40 mg HS [facility] Administration Docusate Sodium 100 mg 01/07/20 22:00 01/08/20 09:12 Colace - PO 100 mg BID [facility] Administration Enoxaparin Sodium 40 mg 01/03/20 12:45 01/08/20 09:12 Lovenox - SQ 40 mg DAILY [facility] Administration Gabapentin 300 mg 01/06/20 14:00 01/08/20 05:51 Neurontin - PO 300 mg TID [facility] Administration Sodium Chloride 1,000 mls @ 60 mls/hr 01/07/20 23:00 01/07/20 23:45 Normal Saline - IV Not Given ASDIR [facility] Insulin Aspart 1 vial 01/03/20 16:30 01/08/20 11:09 Novolog Vial Sliding Scale - SQ 1 unit TIDAC [facility] Administration Protocol Lisinopril 10 mg 01/03/20 12:30 01/08/20 09:12 Prinivil PO 10 mg DAILY [facility] Administration Metoprolol Succinate 50 mg 01/03/20 12:30 01/08/20 09:12 Toprol Xl - PO 50 mg DAILY [facility] Administration Polyethylene Glycol 17 gm 01/07/20 18:09 Miralax (For Daily Use) - PO DAILY PRN CONSTIPATION Potassium Phos/Sodium Phos 1 packet 01/04/20 13:45 01/08/20 09:12 Phos-Nak Packet - PO 1 packet BID [facility] Administration Senna 1 tab 01/07/20 22:00 01/08/20 09:13 Senna - PO 1 tab BID [facility] Administration Home Medications Medication Instructions Recorded Amlodipine Besylate/Benazepril 1 cap PO DAILY 06/15/17 [Lotrel 5-10 mg Capsule] Atorvastatin Ca [Lipitor] 40 mg PO HS 06/15/17 Metoprolol Succinate [Toprol Xl] 50 mg PO DAILY 06/15/17 Sitagliptin Phos/Metformin HCl 1 each PO BID 06/15/17 [Janumet 50-1,000 mg Tablet] Aspirin Coated [Ecotrin -] 81 mg PO DAILY 07/02/17 Allopurinol 300 mg PO DAILY 01/05/20 Ergocalciferol (Vitamin D2) 50,000 unit PO WEEKLY 01/05/20 [Vitamin D2] Glimepiride [Amaryl -] 4 mg PO DAILY@0700 01/05/20 Hydralazine HCl 50 mg PO BID 01/05/20 Naproxen 375 mg PO BID 01/05/20 ASSESSMENT AND PLAN: 69 year old male with history of HTN, HLD, DM 2, recently diagnosed MM (follows with Dr. Lerma), presented with back pain, limiting mobility and ability to reach bathroom in time. She denies LE weakness or incontinence. She was found to have multiple spinal vertebral pathologic fractures. MRI T/L Spine - multiple compression fractures at T11, L4-L5 without spinal cord impingement. L4-5 degenerative spondylolisthesis with stenosis 1. Multilevel T/L Spine pathologic fractures secondary to MM No evidence of spinal cord compression. Seen by Oncology, Rad-Onc, Neurosurgery As per Neurosurgery - No surgical intervention recommended due to extensive disease. Rad-Onc recommends palliative RTx - discussed with Dr. Call who thinks this should be done as in-patient. As per Dr. Call, patient should also start on Dexa, Revlimid, Velcade. Further treatment plan as per Oncology. Analgesia with trial of oxycodone appears to be working along with lower back brace. Pain Management consulted, awaiting eval. 2. MM with Hypercalcemia and Hyperuricemia Seen by Nephrology for Hypercalcemia - IV hydration stopped. s/p Bisphosphonate/Calcitonin. Hypercalcemia improved. Allopurinol started for elevated Uric Acid. 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 Hematology/Oncology to further guide further management. 3. HTN - initially uncontrolled due to pain. Now improved on home meds Norvasc, MARTIN-I, and Metoprolol. 4. HLD - continue Statin. 5. DM 2 - Novolog as per sliding scale. 6. Hypokalemia/Hypophosphatemia/Hypomagnesemia - repleted. DVT Px - Lovenox SQ. Dispo - depending on Oncology plan for Rx. Not ambulating sufficiently and independently enough currently for safe discharge home. COVID PCR negative. Visit type - Emergency Visit Emergency Visit: Yes ED Registration Date: 01/03/20 Care time: The patient presented to the Emergency Department on the above date and was hospitalized for further evaluation of their emergent condition. - New Patient This patient is new to me today: No - Critical Care Critical Care patient: No - Discharge Referral Referred to [facility] Med [facility] No
[2020-01-08 15:47] LABS: PHOSPHOROUS 2.4 mg/dL (2.5-4.9)
[2020-01-08] MEDS: SODIUM CHLORIDE 1,000 ML IV SCH ×2 (15:52→23:11)
[2020-01-08] MEDS ORDERED: ACETAMINOPHEN 325 MG TABLET (FP) PO PRN ×2 (17:28→17:29)
[2020-01-08] MEDS ORDERED: POTASSIUM PHOSPHATE 15 MM in SODIUM CHLORIDE 250 ML IVPB ONE (18:00)
[2020-01-08] MEDS: DEXAMETHASONE SOD PHOSPHATE 10 MG/1 ML VIAL IVPB SCH (18:51)
[2020-01-08] MEDS: ATORVASTATIN CA 40 MG TABLET (FP) PO SCH (22:14)
[2020-01-09] MEDS: GABAPENTIN 300 MG CAPSULE PO SCH ×3 (05:17→22:10)
[2020-01-09] MEDS: INSULIN SLIDING SCALE (NOVOLOG) 1 VIAL SQ SCH ×3 (06:11→16:09)
--- NOTE | 2020-01-09 09:09 | PN ---
Progress Note (short form) - Note Progress Note: NEUROSURGERY Walked with PT in hallway over the weekend. Sitting up in chair. No B/B incontinence. HEENT- NC/AT; Neck- supple; Cor- RR; Lungs- CTA B; Abd- benign; Ext- no sign of DVT CN- intact; Motor- 4+/5 pain limited; Sensation- intact LT; DTR- hyporeflexia/symmetric Diffuse multifocal vertebral MM (h/o R humerus MM with pathological fx) L4-5 degenerative spondylolisthesis with stenosis Neurosurgical intervention not indicated nor recommended for such extensive dz Doubt kyphoplasty is a good choice given extensive pathological involvement with multi-level fx Discussed possibility of TLSO Palliative RT for pain control On gabapentin 300 tid On Decadron Med onc f/u and tx regimen Pain meds
[2020-01-09] MEDS: amLODIPine BESYLATE 5 MG TABLET (FP) PO SCH (09:42)
[2020-01-09] MEDS: ENOXAPARIN NA (PORCINE) 40 MG/0.4 ML DISP.SYRIN SQ SCH (09:42)
[2020-01-09] MEDS: DEXAMETHASONE SOD PHOSPHATE 10 MG/1 ML VIAL IVPB SCH (09:42)
[2020-01-09] MEDS: DOCUSATE SODIUM 100 MG CAPSULE (FP) PO SCH ×2 (09:43→22:10)
[2020-01-09] MEDS: LISINOPRIL 10 MG TABLET (FP) PO SCH (09:43)
[2020-01-09] MEDS: ASPIRIN COATED 81 MG TABLET.EC PO SCH (09:43)
[2020-01-09] MEDS: SENNOSIDES 8.6MG TABLET (FP) PO SCH ×2 (09:43→22:10)
[2020-01-09] MEDS: oxyCODONE HCL 5 MG TABLET PO PRN ×2 (09:43→14:04)
[2020-01-09] MEDS: NAPH,MB-DB/K PH,MBDB POWDER PACKET PO SCH ×2 (09:43→22:10)
[2020-01-09] MEDS: PANTOPRAZOLE 40 MG TABLET PO SCH (09:43)
[2020-01-09] MEDS: ALLOPURINOL 300 MG TABLET (FP) PO SCH (09:44)
[2020-01-09 10:38] LABS: BASO % 0.3 % (0-2.0); HEMATOCRIT 21.5 % (32.4-45.2); LYMPH % 8.7 % (8-40); MCHC 32.6 g/dl (32.0-36.0); MEAN CELL VOLUME 88.9 fl (80-96); MEAN PLT VOLUME 7.2 fl (7.5-11.1); MONO % 3.8 % (3.8-10.2); NEUT % 87.2 % (42.8-82.8); PLATELET COUNT 238 K/MM3 (134-434); RBC 2.41 M/mm3 (3.60-5.2); RDW 15.7 % (11.6-15.6); WHITE BLOOD COUNT 9.3 K/mm3 (4.0-10.0)
[2020-01-09] MEDS ORDERED: BORTEZOMIB (VELCADE) 2.5 MG/ML SUB-Q INJECTION SQ ONE (11:00)
[2020-01-09 12:02] LABS: ALBUMIN 2.6 g/dl (3.4-5.0); BILIRUBIN,TOTAL 0.6 mg/dL (0.2-1); BLOOD UREA NITROGEN 21.7 mg/dL (7-18); POTASSIUM 4.3 mmol/L (3.5-5.1); TOT PROT 7.7 g/dl (6.4-8.2); URIC ACID 2.7 mg/dL (2.6-7.2)
[2020-01-09 12:10] LABS: MAGNESIUM 1.5 mg/dL (1.8-2.4); PHOSPHOROUS 3.5 mg/dL (2.5-4.9)
--- NOTE | 2020-01-09 16:06 | PN ---
Progress Note, Physician History of Present Illness: Pt seen and examined at bedside. She is awake and alert. She denies shortness of breath. - Current Medication List Current Medications: Active Medications Acetaminophen (Tylenol -) 650 mg PO Q6H PRN PRN Reason: PAIN LEVEL 1-5 Allopurinol (Zyloprim -) 300 mg PO DAILY [facility] Last Admin: 01/09/20 09:44 Dose: 300 mg Documented by: Amlodipine Besylate (Norvasc -) 5 mg PO DAILY [facility] Last Admin: 01/09/20 09:42 Dose: 5 mg Documented by: Aspirin (Ecotrin -) 81 mg PO DAILY [facility] Last Admin: 01/09/20 09:43 Dose: 81 mg Documented by: Atorvastatin Calcium (Lipitor -) 40 mg PO HS [facility] Last Admin: 01/08/20 22:14 Dose: 40 mg Documented by: Dexamethasone Sodium Phosphate (Decadron Injection -) 20 mg IVPB DAILY [facility] Stop: 01/10/20 18:29 Last Admin: 01/09/20 09:42 Dose: 20 mg Documented by: Docusate Sodium (Colace -) 100 mg PO BID [facility] Last Admin: 01/09/20 09:43 Dose: 100 mg Documented by: Enoxaparin Sodium (Lovenox -) 40 mg SQ DAILY [facility] Last Admin: 01/09/20 09:42 Dose: 40 mg Documented by: Gabapentin (Neurontin -) 300 mg PO TID [facility] Last Admin: 01/09/20 13:48 Dose: 300 mg Documented by: Sodium Chloride (Normal Saline -) 1,000 mls @ 60 mls/hr IV ASDIR [facility] Last Admin: 01/08/20 23:11 Dose: Not Given Documented by: Insulin Aspart (Novolog Vial Sliding Scale -) 1 vial SQ TIDAC [facility]; Protocol Last Admin: 01/09/20 11:25 Dose: 5 unit Documented by: Lisinopril (Prinivil) 10 mg PO DAILY [facility] Last Admin: 01/09/20 09:43 Dose: 10 mg Documented by: Metoprolol Succinate (Toprol Xl -) 50 mg PO DAILY [facility] Last Admin: 01/09/20 09:43 Dose: 50 mg Documented by: Oxycodone HCl (Roxicodone -) 5 mg PO Q4H PRN PRN Reason: PAIN LEVEL 6-10 Last Admin: 01/09/20 14:04 Dose: 5 mg Documented by: Pantoprazole Sodium (Protonix -) 40 mg PO DAILY [facility] Last Admin: 01/09/20 09:43 Dose: 40 mg Documented by: Polyethylene Glycol (Miralax (For Daily Use) -) 17 gm PO DAILY PRN PRN Reason: CONSTIPATION Last Admin: 01/09/20 09:44 Dose: 17 gm Documented by: Potassium Phos/Sodium Phos (Phos-Nak Packet -) 1 packet PO BID [facility] Last Admin: 01/09/20 09:43 Dose: 1 packet Documented by: Senna (Senna -) 1 tab PO BID [facility] Last Admin: 01/09/20 09:43 Dose: 1 tab Documented by: - Objective Vital Signs: Vital Signs Temperature 98 F 01/09/20 15:32 Pulse Rate 97 H 01/09/20 15:32 Respiratory Rate 18 01/09/20 15:32 Blood Pressure 162/87 01/09/20 15:32 O2 Sat by Pulse Oximetry (%) 96 01/09/20 15:29 Constitutional: Yes: Calm Eyes: Yes: Conjunctiva Clear HENT: Yes: Atraumatic Cardiovascular: Yes: S1, S2 Respiratory: Yes: CTA Bilaterally Gastrointestinal: Yes: Soft Genitourinary: Yes: WNL Musculoskeletal: Yes: WNL Edema: No Neurological: Yes: Oriented Psychiatric: Yes: Oriented Labs: CBC, BMP 01/09/20 09:29 01/09/20 10:20 INR, PTT INR 1.03 (0.83-1.09) 01/03/20 10:00 Problem List - Problems (1) Hypercalcemia Code(s): E83.52 - HYPERCALCEMIA (2) Multiple myeloma Code(s): C90.00 - MULTIPLE MYELOMA NOT HAVING ACHIEVED REMISSION (3) Spine fracture Code(s): CRC4644 - Assessment/Plan Current Medications Generic Name Dose Route Start Last Admin Trade Name Freq PRN Reason Stop Dose Admin Acetaminophen 650 mg 01/08/20 17:29 Tylenol - PO Q6H PRN PAIN LEVEL 1-5 Allopurinol 300 mg 01/08/20 10:00 01/09/20 09:44 Zyloprim - PO 300 mg DAILY [facility] Administration Amlodipine Besylate 5 mg 01/03/20 12:30 01/09/20 09:42 Norvasc - PO 5 mg DAILY [facility] Administration Aspirin 81 mg 01/04/20 10:00 01/09/20 09:43 Ecotrin - PO 81 mg DAILY [facility] Administration Atorvastatin Calcium 40 mg 01/03/20 22:00 01/08/20 22:14 Lipitor - PO 40 mg HS [facility] Administration Dexamethasone Sodium Phosphate 20 mg 01/08/20 18:30 01/09/20 09:42 Decadron Injection - IVPB 01/10/20 18:29 20 mg DAILY [facility] Administration Docusate Sodium 100 mg 01/07/20 22:00 01/09/20 09:43 Colace - PO 100 mg BID [facility] Administration Enoxaparin Sodium 40 mg 01/03/20 12:45 01/09/20 09:42 Lovenox - SQ 40 mg DAILY [facility] Administration Gabapentin 300 mg 01/06/20 14:00 01/09/20 13:48 Neurontin - PO 300 mg TID [facility] Administration Sodium Chloride 1,000 mls @ 60 mls/hr 01/07/20 23:00 01/08/20 23:11 Normal Saline - IV Not Given ASDIR [facility] Insulin Aspart 1 vial 01/03/20 16:30 01/09/20 11:25 Novolog Vial Sliding Scale - SQ 5 unit TIDAC [facility] Administration Protocol Lisinopril 10 mg 01/03/20 12:30 01/09/20 09:43 Prinivil PO 10 mg DAILY [facility] Administration Metoprolol Succinate 50 mg 01/03/20 12:30 01/09/20 09:43 Toprol Xl - PO 50 mg DAILY [facility] Administration Oxycodone HCl 5 mg 01/08/20 17:27 01/09/20 14:04 Roxicodone - PO 5 mg Q4H PRN Administration PAIN LEVEL 6-10 Pantoprazole Sodium 40 mg 01/09/20 10:00 01/09/20 09:43 Protonix - PO 40 mg DAILY [facility] Administration Polyethylene Glycol 17 gm 01/07/20 18:09 01/09/20 09:44 Miralax (For Daily Use) - PO 17 gm DAILY PRN Administration CONSTIPATION Potassium Phos/Sodium Phos 1 packet 01/04/20 13:45 01/09/20 09:43 Phos-Nak Packet - PO 1 packet BID [facility] Administration Senna 1 tab 01/07/20 22:00 01/09/20 09:43 Senna - PO 1 tab BID [facility] Administration Impression 1. hypercalcemia 2. multiple myelpma 3. htn 4. hld 5. dm 6. hypokalemia 7. compression fractures 8. CKD Plan - calcium stabilizes - oncology input appreciated - monitor lytes - renal function stable - s/p zometa - will follow prn
[2020-01-09] MEDS ORDERED: MAGNESIUM SULF 50% (8.12 MEQ/2 ML-1 GM VIAL) IVPB ONE (16:35)
--- NOTE | 2020-01-09 16:48 | PN ---
Teaching Attending Note Name of Resident: Viktor Escobar ATTENDING PHYSICIAN STATEMENT I saw and evaluated the patient. I reviewed the resident's note and discussed the case with the resident. I agree with the resident's findings and plan as documented. SUBJECTIVE: Back discomfort improving with Oxycodone and lower back brace. Ambulating with walker. No LE weakness/numbness/tingling or incontinence. OBJECTIVE: Afebrile, Hemodynamically Stable. Last Vital Signs Temp Pulse Resp BP Pulse Ox 98 F 97 H 18 162/87 96 01/09/20 15:32 01/09/20 15:32 01/09/20 15:32 01/09/20 15:32 01/09/20 15:29 Heart - S1, S2, RRR Lungs - clear to auscultation Abdomen - Soft, non-tender. Bowel Sounds normal. Extremities - no edema, no calf tenderness. Neuro - AAO x 3. Tone/Power normal all extremities. Laboratory Results - last 24 hr 01/08/20 01/08/20 01/09/20 17:10 22:06 05:15 WBC RBC Hgb Hct MCV MCH MCHC RDW Plt Count MPV Absolute Neuts (auto) Neutrophils % Lymphocytes % Monocytes % Eosinophils % Basophils % Nucleated RBC % Sodium Potassium Chloride Carbon Dioxide Anion Gap BUN Creatinine Est GFR (CKD-EPI)AfAm Est GFR (CKD-EPI)NonAf POC Glucometer 169 242 268 Random Glucose Uric Acid Calcium Phosphorus Magnesium Total Bilirubin AST ALT Alkaline Phosphatase LD Total Total Protein Albumin 01/09/20 01/09/20 01/09/20 09:29 10:20 11:14 WBC 9.3 RBC 2.41 L Hgb 7.0 L Hct 21.5 L MCV 88.9 MCH 29.0 MCHC 32.6 RDW 15.7 H Plt Count 238 MPV 7.2 L Absolute Neuts (auto) 8.1 H Neutrophils % 87.2 H D Lymphocytes % 8.7 D Monocytes % 3.8 Eosinophils % 0.0 D Basophils % 0.3 Nucleated RBC % 0 Sodium 141 Potassium 4.3 Chloride 112 H Carbon Dioxide 19 L Anion Gap 10 BUN 21.7 H Creatinine 1.0 Est GFR (CKD-EPI)AfAm 65.64 Est GFR (CKD-EPI)NonAf 56.64 POC Glucometer 305 Random Glucose 296 H Uric Acid 2.7 Calcium 7.0 L Phosphorus 3.5 Magnesium 1.5 L Total Bilirubin 0.6 AST 39 H ALT 43 Alkaline Phosphatase 89 LD Total 178 Total Protein 7.7 Albumin 2.6 L 01/09/20 16:08 WBC RBC Hgb Hct MCV MCH MCHC RDW Plt Count MPV Absolute Neuts (auto) Neutrophils % Lymphocytes % Monocytes % Eosinophils % Basophils % Nucleated RBC % Sodium Potassium Chloride Carbon Dioxide Anion Gap BUN Creatinine Est GFR (CKD-EPI)AfAm Est GFR (CKD-EPI)NonAf POC Glucometer 359 Random Glucose Uric Acid Calcium Phosphorus Magnesium Total Bilirubin AST ALT Alkaline Phosphatase LD Total Total Protein Albumin Current Medications Generic Name Dose Route Start Last Admin Trade Name Freq PRN Reason Stop Dose Admin Acetaminophen 650 mg 01/08/20 17:29 Tylenol - PO Q6H PRN PAIN LEVEL 1-5 Allopurinol 300 mg 01/08/20 10:00 01/09/20 09:44 Zyloprim - PO 300 mg DAILY [facility] Administration Amlodipine Besylate 5 mg 01/03/20 12:30 01/09/20 09:42 Norvasc - PO 5 mg DAILY [facility] Administration Aspirin 81 mg 01/04/20 10:00 01/09/20 09:43 Ecotrin - PO 81 mg DAILY [facility] Administration Atorvastatin Calcium 40 mg 01/03/20 22:00 01/08/20 22:14 Lipitor - PO 40 mg HS [facility] Administration Dexamethasone Sodium Phosphate 20 mg 01/08/20 18:30 01/09/20 09:42 Decadron Injection - IVPB 01/10/20 18:29 20 mg DAILY [facility] Administration Docusate Sodium 100 mg 01/07/20 22:00 01/09/20 09:43 Colace - PO 100 mg BID [facility] Administration Enoxaparin Sodium 40 mg 01/03/20 12:45 01/09/20 09:42 Lovenox - SQ 40 mg DAILY [facility] Administration Gabapentin 300 mg 01/06/20 14:00 01/09/20 13:48 Neurontin - PO 300 mg TID [facility] Administration Sodium Chloride 1,000 mls @ 60 mls/hr 01/07/20 23:00 01/08/20 23:11 Normal Saline - IV Not Given ASDIR [facility] Insulin Aspart 1 vial 01/03/20 16:30 01/09/20 16:09 Novolog Vial Sliding Scale - SQ 6 unit TIDAC [facility] Administration Protocol Lisinopril 10 mg 01/03/20 12:30 01/09/20 09:43 Prinivil PO 10 mg DAILY [facility] Administration Magnesium Sulfate 2 gm 01/09/20 16:35 Magnesium Sulfate IVPB 01/09/20 16:36 ONCE ONE Metoprolol Succinate 50 mg 01/03/20 12:30 01/09/20 09:43 Toprol Xl - PO 50 mg DAILY [facility] Administration Oxycodone HCl 5 mg 01/08/20 17:27 01/09/20 14:04 Roxicodone - PO 5 mg Q4H PRN Administration PAIN LEVEL 6-10 Pantoprazole Sodium 40 mg 01/09/20 10:00 01/09/20 09:43 Protonix - PO 40 mg DAILY [facility] Administration Polyethylene Glycol 17 gm 01/07/20 18:09 01/09/20 09:44 Miralax (For Daily Use) - PO 17 gm DAILY PRN Administration CONSTIPATION Potassium Phos/Sodium Phos 1 packet 01/04/20 13:45 01/09/20 09:43 Phos-Nak Packet - PO 1 packet BID [facility] Administration Senna 1 tab 01/07/20 22:00 01/09/20 09:43 Senna - PO 1 tab BID [facility] Administration Home Medications Medication Instructions Recorded Amlodipine Besylate/Benazepril 1 cap PO DAILY 06/15/17 [Lotrel 5-10 mg Capsule] Atorvastatin Ca [Lipitor] 40 mg PO HS 06/15/17 Metoprolol Succinate [Toprol Xl] 50 mg PO DAILY 06/15/17 Sitagliptin Phos/Metformin HCl 1 each PO BID 06/15/17 [Janumet 50-1,000 mg Tablet] Aspirin Coated [Ecotrin -] 81 mg PO DAILY 07/02/17 Allopurinol 300 mg PO DAILY 01/05/20 Ergocalciferol (Vitamin D2) 50,000 unit PO WEEKLY 01/05/20 [Vitamin D2] Glimepiride [Amaryl -] 4 mg PO DAILY@0700 01/05/20 Hydralazine HCl 50 mg PO BID 01/05/20 Naproxen 375 mg PO BID 01/05/20 ASSESSMENT AND PLAN: 69 year old male with history of HTN, HLD, DM 2, recently diagnosed MM (follows with Dr. Lerma), presented with back pain, limiting mobility and ability to reach bathroom in time. She denies LE weakness or incontinence. She was found to have multiple spinal vertebral pathologic fractures. MRI T/L Spine - multiple compression fractures at T11, L4-L5 without spinal cord impingement. L4-5 degenerative spondylolisthesis with stenosis 1. Multilevel T/L Spine pathologic fractures secondary to MM No evidence of spinal cord compression. Seen by Oncology, Rad-Onc, Neurosurgery As per Neurosurgery - No surgical intervention recommended due to extensive disease. Rad-Onc recommends palliative RTx - discussed with Dr. Call who thinks this should be done as in-patient. Started on IV Dexa. As per Dr. Call, patient should also start Revlimid, Velcade as in-patient. Further treatment plan as per Oncology. Analgesia with trial of oxycodone appears to be working along with lower back brace. Pain Management consulted, awaiting eval. Neurosurgery to consider TLSO MRI C-Spine as requested by Oncology. 2. MM with Hypercalcemia and Hyperuricemia Seen by Nephrology for Hypercalcemia - IV hydration stopped. s/p Bisphosphonate/Calcitonin. Hypercalcemia improved. Allopurinol started for elevated Uric Acid. Anemia secondary to MM - H/H 7.0/21.5 - mild drop, will monitor and transfuse PRN. Hematology/Oncology to further guide further management. 3. HTN - initially uncontrolled due to pain. Now improved on home meds Norvasc, MARTIN-I, and Metoprolol. 4. HLD - continue Statin. 5. DM 2 - Novolog as per sliding scale. 6. Hypokalemia/Hypophosphatemia/Hypomagnesemia - repleted. 7. Hypomagnesemia - repleted DVT Px - Lovenox SQ. Dispo - depending on Oncology plan for Rx. Dr. Call wants to arrange in- patient Chemotherapy and in-patient Radiation therapy. COVID PCR negative.
[2020-01-09] MEDS: SODIUM CHLORIDE 1,000 ML IV SCH (19:25)
[2020-01-09] MEDS: ATORVASTATIN CA 40 MG TABLET (FP) PO SCH (22:10)
--- NOTE | 2020-01-10 02:05 | PN.HO ---
Progress Note (short form) - Note Progress Note: Patient seen and examined c/o difficulty ambulating c/o weakness in lower extremities Last Vital Signs Temp Pulse Resp BP Pulse Ox 98.7 F 86 18 156/80 94 L 01/06/20 19:32 01/06/20 19:32 01/06/20 19:32 01/06/20 19:32 01/06/20 10:00 Last Vital Signs Temp Pulse Resp BP Pulse Ox 98.6 F 74 20 141/64 95 01/08/20 13:33 01/08/20 13:33 01/08/20 13:33 01/08/20 13:33 01/08/20 10:00 Last Vital Signs Temp Pulse Resp BP Pulse Ox 97.9 F 99 H 20 161/82 96 01/09/20 22:00 01/09/20 22:00 01/09/20 22:00 01/09/20 22:00 01/09/20 21:00 Cor: RSR, No murmurs, No gallops Lungs: Clear to P&A Abd: Soft, Normal bowel sounds, No organomegaly Ext:No significant edema LAbd/Meds reviewed A/P Multiple myeloma with multiple pathologic vetebral compression fractures, most symptomatic at T4, T11 and L4 and L5 Pathologic compression fractures/ thecal sac compression T4/11, L4/5 on MRI done 12/29. Also degenerative central canal stenosis will check MRI C spine k/L ratio 6000s Pain controlled Will need RT /IR input about kyphoplasty started allopurinol start dexamethasoe 40mg weekly with velcade. to coordinate revlimid around RT. Velcade 01/09/20 s/p zometa 01/02 will discuss with rad-onc/IR
[2020-01-10 06:18] LABS: BASO % 0.2 % (0-2.0); HEMATOCRIT 25.4 % (32.4-45.2); HEMOGLOBIN 8.3 GM/dL (10.7-15.3); LYMPH % 9.4 % (8-40); MCH 28.2 pg (25.7-33.7); MCHC 32.6 g/dl (32.0-36.0); MEAN CELL VOLUME 86.5 fl (80-96); MONO % 7.9 % (3.8-10.2); NEUT % 82.5 % (42.8-82.8); PLATELET COUNT 346 K/MM3 (134-434); RBC 2.94 M/mm3 (3.60-5.2); RDW 16.2 % (11.6-15.6); WHITE BLOOD COUNT 14.6 K/mm3 (4.0-10.0)
[2020-01-10 06:45] LABS: BILIRUBIN,TOTAL 0.2 mg/dL (0.2-1); CALCIUM 8.7 mg/dL (8.5-10.1); CREATININE 1.1 mg/dL (0.55-1.3); POTASSIUM 3.4 mmol/L (3.5-5.1); TOT PROT 8.9 g/dl (6.4-8.2)
[2020-01-10] MEDS: GABAPENTIN 300 MG CAPSULE PO SCH ×3 (06:56→22:01)
[2020-01-10] MEDS: INSULIN SLIDING SCALE (NOVOLOG) 1 VIAL SQ SCH ×3 (06:56→16:37)
--- NOTE | 2020-01-10 07:12 | PN ---
Physical Exam: SUBJECTIVE: Patient seen and examined Patient was examined while she was seated with a back brace. She complains of breakthrough pain whenever she does not take her oxycodone. She endorses that the oxycodone is able to reduce her pain. She endorses using the seat commode and passing stool. OBJECTIVE: Vital Signs Period Temp Pulse Resp BP Sys/Kerr Pulse Ox Last 24 Hr 97.9 F-98.2 F 88-99 18-20 156-167/82-87 96-96 GENERAL: The patient is awake, alert, and fully oriented, in no acute distress. HEAD: Normal with no signs of trauma. EYES: PERRL, extraocular movements intact, sclera anicteric, conjunctiva clear. No ptosis. ENT: Ears normal, nares patent, oropharynx clear without exudates, moist mucous membranes. NECK: Trachea midline, full range of motion, supple. LUNGS: Breath sounds equal, clear to auscultation bilaterally, no wheezes, no crackles, no accessory muscle use. HEART: Regular rate and rhythm, S1, S2 without murmur, rub or gallop. ABDOMEN: Soft, nontender, nondistended, normoactive bowel sounds, no guarding, no rebound, no hepatosplenomegaly, no masses. EXTREMITIES: 2+ pulses, warm, well-perfused, no edema. NEUROLOGICAL: Cranial nerves II through XII grossly intact. Normal speech, gait not observed. PSYCH: Normal mood, normal affect. SKIN: Warm, dry, normal turgor, no rashes or lesions noted Laboratory Results - last 24 hr 01/09/20 01/09/20 01/09/20 09:29 10:20 11:14 WBC 9.3 RBC 2.41 L Hgb 7.0 L Hct 21.5 L MCV 88.9 MCH 29.0 MCHC 32.6 RDW 15.7 H Plt Count 238 MPV 7.2 L Absolute Neuts (auto) 8.1 H Neutrophils % 87.2 H D Lymphocytes % 8.7 D Monocytes % 3.8 Eosinophils % 0.0 D Basophils % 0.3 Nucleated RBC % 0 Sodium 141 Potassium 4.3 Chloride 112 H Carbon Dioxide 19 L Anion Gap 10 BUN 21.7 H Creatinine 1.0 Est GFR (CKD-EPI)AfAm 65.64 Est GFR (CKD-EPI)NonAf 56.64 POC Glucometer 305 Random Glucose 296 H Uric Acid 2.7 Calcium 7.0 L Phosphorus 3.5 Magnesium 1.5 L Total Bilirubin 0.6 AST 39 H ALT 43 Alkaline Phosphatase 89 LD Total 178 Total Protein 7.7 Albumin 2.6 L Crossmatch 01/09/20 01/10/20 01/10/20 16:08 05:40 05:40 WBC 14.6 H RBC 2.94 L Hgb 8.3 L Hct 25.4 L D MCV 86.5 MCH 28.2 MCHC 32.6 RDW 16.2 H Plt Count 346 D MPV 7.0 L Absolute Neuts (auto) 12.1 H Neutrophils % 82.5 Lymphocytes % 9.4 Monocytes % 7.9 D Eosinophils % 0.0 Basophils % 0.2 Nucleated RBC % 0 Sodium Potassium Chloride Carbon Dioxide Anion Gap BUN Creatinine Est GFR (CKD-EPI)AfAm Est GFR (CKD-EPI)NonAf POC Glucometer 359 Random Glucose Uric Acid Calcium Phosphorus Magnesium Total Bilirubin AST ALT Alkaline Phosphatase LD Total Total Protein Albumin Crossmatch See Detail 01/10/20 01/10/20 06:00 06:53 WBC RBC Hgb Hct MCV MCH MCHC RDW Plt Count MPV Absolute Neuts (auto) Neutrophils % Lymphocytes % Monocytes % Eosinophils % Basophils % Nucleated RBC % Sodium 142 Potassium 3.4 L Chloride 112 H Carbon Dioxide 18 L Anion Gap 12 BUN 22.0 H Creatinine 1.1 Est GFR (CKD-EPI)AfAm 58.50 Est GFR (CKD-EPI)NonAf 50.47 POC Glucometer 220 Random Glucose 240 H Uric Acid Calcium 8.7 Phosphorus Magnesium Total Bilirubin 0.2 AST 23 ALT 46 Alkaline Phosphatase 104 LD Total Total Protein 8.9 H Albumin 3.0 L Crossmatch Active Medications Generic Name Dose Route Start Last Admin Trade Name Freq PRN Reason Stop Dose Admin Acetaminophen 650 mg 01/08/20 17:29 Tylenol - PO Q6H PRN PAIN LEVEL 1-5 Allopurinol 300 mg 01/08/20 10:00 01/09/20 09:44 Zyloprim - PO 300 mg DAILY OTILIA Administration Amlodipine Besylate 5 mg 01/03/20 12:30 01/09/20 09:42 Norvasc - PO 5 mg DAILY OTILIA Administration Aspirin 81 mg 01/04/20 10:00 01/09/20 09:43 Ecotrin - PO 81 mg DAILY OTILIA Administration Atorvastatin Calcium 40 mg 01/03/20 22:00 01/09/20 22:10 Lipitor - PO 40 mg HS OTILIA Administration Dexamethasone Sodium Phosphate 20 mg 01/08/20 18:30 01/09/20 09:42 Decadron Injection - IVPB 01/10/20 18:29 20 mg DAILY OTILIA Administration Docusate Sodium 100 mg 01/07/20 22:00 01/09/20 22:10 Colace - PO 100 mg BID OTILIA Administration Enoxaparin Sodium 40 mg 01/03/20 12:45 01/09/20 09:42 Lovenox - SQ 40 mg DAILY OTILIA Administration Gabapentin 300 mg 01/06/20 14:00 01/10/20 06:56 Neurontin - PO 300 mg TID OTILIA Administration Sodium Chloride 1,000 mls @ 60 mls/hr 01/07/20 23:00 01/10/20 00:00 Normal Saline - IV Not Given ASDIR OTILIA Insulin Aspart 1 vial 01/03/20 16:30 01/10/20 06:56 Novolog Vial Sliding Scale - SQ 3 unit TIDAC OTILIA Administration Protocol Lisinopril 10 mg 01/03/20 12:30 01/09/20 09:43 Prinivil PO 10 mg DAILY OTILIA Administration Metoprolol Succinate 50 mg 01/03/20 12:30 01/09/20 09:43 Toprol Xl - PO 50 mg DAILY OTILIA Administration Oxycodone HCl 5 mg 01/08/20 17:27 01/09/20 14:04 Roxicodone - PO 5 mg Q4H PRN Administration PAIN LEVEL 6-10 Pantoprazole Sodium 40 mg 01/09/20 10:00 01/09/20 09:43 Protonix - PO 40 mg DAILY OTILIA Administration Polyethylene Glycol 17 gm 01/07/20 18:09 01/09/20 09:44 Miralax (For Daily Use) - PO 17 gm DAILY PRN Administration CONSTIPATION Potassium Phos/Sodium Phos 1 packet 01/04/20 13:45 01/09/20 22:10 Phos-Nak Packet - PO 1 packet BID OTILIA Administration Senna 1 tab 01/07/20 22:00 01/09/20 22:10 Senna - PO 1 tab BID OTILIA Administration ASSESSMENT/PLAN: Celso is a 69F with a PMHx of HTN, HLD, DM 2, recently diagnosed multiple myeloma. The patient presented with radiating back pain that prevents her from ambulating to the bathroom. Patient was found to have compression fractures in T4,T11, L4 and L5 on imaging secondary to multiple myeloma osteolytic lesions. Neurosurgery found no involvement with the spinal column thus no surgical interv ention necessary. Patient is not urinary or fecally incontinent. Patient denies numbness or tingling in LE. 1. Compression fracture of vertebra secondary to multiple myeloma - Patient responds well to oxycodone but needs a longer standing dose of pain relief - Patient responds well to low back brace - Ordered tylenol 975 TID Standing dose - Oxcodone 5mg PRN - will consult hematology to confirm with inpt or outpt radiation therapy - Follow up MRI C-Spine - Started on IV Dexamethasone - monitor glucose and WBC count - As per Dr. Call, patient - start Revlimid, Velcade as in-patient. 2. Hyperuricemia Allopurinol started for elevated Uric Acid - Nephrology consulted will speak to [facility] to coordinate further care 3. HTN - improved on home meds -Norvasc, -MARTIN-I, -Metoprolol. 4. HLD - - continue Statin. 5. DM 2 - Novolog as per sliding scale. 6. DVT Px - Lovenox SQ. 7. Dispo - in-patient Chemotherapy and in-patient Radiation therapy. COVID PCR negative. Visit type - Emergency Visit Emergency Visit: Yes ED Registration Date: 01/03/20 Care time: The patient presented to the Emergency Department on the above date and was hospitalized for further evaluation of their emergent condition. - New Patient This patient is new to me today: No - Critical Care Critical Care patient: No - Discharge Referral Referred to [facility] No ATTENDING PHYSICIAN STATEMENT I saw and evaluated the patient. I reviewed the resident's note and discussed the case with the resident. I agree with the resident's findings and plan as documented. SUBJECTIVE: OBJECTIVE: ASSESSMENT AND PLAN:
--- NOTE | 2020-01-10 07:13 | PN ---
Physical Exam: SUBJECTIVE: Patient seen and examined Patient seen at bedside. Still has complaints of back pain. Patient reports that pain is relieved with oxycodone. Patient denies any further complaints OBJECTIVE: Vital Signs Period Temp Pulse Resp BP Sys/Kerr Pulse Ox Last 24 Hr 97.9 F-98.2 F 88-99 18-20 156-167/82-87 96-96 GENERAL: The patient is awake, alert, and fully oriented, in no acute distress. HEAD: Normal with no signs of trauma. EYES: PERRL, extraocular movements intact, sclera anicteric, conjunctiva clear. No ptosis. ENT: Ears normal, nares patent, oropharynx clear without exudates, moist mucous membranes. NECK: Trachea midline, full range of motion, supple. LUNGS: Breath sounds equal, clear to auscultation bilaterally, no wheezes, no crackles, no accessory muscle use. HEART: Regular rate and rhythm, S1, S2 without murmur, rub or gallop. ABDOMEN: Soft, nontender, nondistended, normoactive bowel sounds, no guarding, no rebound, no hepatosplenomegaly, no masses. EXTREMITIES: 2+ pulses, warm, well-perfused, no edema. NEUROLOGICAL: Cranial nerves II through XII grossly intact. Normal speech, gait not observed. PSYCH: Normal mood, normal affect. SKIN: Warm, dry, normal turgor, no rashes or lesions noted Laboratory Results - last 24 hr 01/09/20 01/09/20 01/09/20 09:29 10:20 11:14 WBC 9.3 RBC 2.41 L Hgb 7.0 L Hct 21.5 L MCV 88.9 MCH 29.0 MCHC 32.6 RDW 15.7 H Plt Count 238 MPV 7.2 L Absolute Neuts (auto) 8.1 H Neutrophils % 87.2 H D Lymphocytes % 8.7 D Monocytes % 3.8 Eosinophils % 0.0 D Basophils % 0.3 Nucleated RBC % 0 Sodium 141 Potassium 4.3 Chloride 112 H Carbon Dioxide 19 L Anion Gap 10 BUN 21.7 H Creatinine 1.0 Est GFR (CKD-EPI)AfAm 65.64 Est GFR (CKD-EPI)NonAf 56.64 POC Glucometer 305 Random Glucose 296 H Uric Acid 2.7 Calcium 7.0 L Phosphorus 3.5 Magnesium 1.5 L Total Bilirubin 0.6 AST 39 H ALT 43 Alkaline Phosphatase 89 LD Total 178 Total Protein 7.7 Albumin 2.6 L Crossmatch 01/09/20 01/10/20 01/10/20 16:08 05:40 05:40 WBC 14.6 H RBC 2.94 L Hgb 8.3 L Hct 25.4 L D MCV 86.5 MCH 28.2 MCHC 32.6 RDW 16.2 H Plt Count 346 D MPV 7.0 L Absolute Neuts (auto) 12.1 H Neutrophils % 82.5 Lymphocytes % 9.4 Monocytes % 7.9 D Eosinophils % 0.0 Basophils % 0.2 Nucleated RBC % 0 Sodium Potassium Chloride Carbon Dioxide Anion Gap BUN Creatinine Est GFR (CKD-EPI)AfAm Est GFR (CKD-EPI)NonAf POC Glucometer 359 Random Glucose Uric Acid Calcium Phosphorus Magnesium Total Bilirubin AST ALT Alkaline Phosphatase LD Total Total Protein Albumin Crossmatch See Detail 01/10/20 01/10/20 06:00 06:53 WBC RBC Hgb Hct MCV MCH MCHC RDW Plt Count MPV Absolute Neuts (auto) Neutrophils % Lymphocytes % Monocytes % Eosinophils % Basophils % Nucleated RBC % Sodium 142 Potassium 3.4 L Chloride 112 H Carbon Dioxide 18 L Anion Gap 12 BUN 22.0 H Creatinine 1.1 Est GFR (CKD-EPI)AfAm 58.50 Est GFR (CKD-EPI)NonAf 50.47 POC Glucometer 220 Random Glucose 240 H Uric Acid Calcium 8.7 Phosphorus Magnesium Total Bilirubin 0.2 AST 23 ALT 46 Alkaline Phosphatase 104 LD Total Total Protein 8.9 H Albumin 3.0 L Crossmatch Active Medications Generic Name Dose Route Start Last Admin Trade Name Manuelq PRN Reason Stop Dose Admin Acetaminophen 650 mg 01/08/20 17:29 Tylenol - PO Q6H PRN PAIN LEVEL 1-5 Allopurinol 300 mg 01/08/20 10:00 01/09/20 09:44 Zyloprim - PO 300 mg DAILY OTILIA Administration Amlodipine Besylate 5 mg 01/03/20 12:30 01/09/20 09:42 Norvasc - PO 5 mg DAILY OTILIA Administration Aspirin 81 mg 01/04/20 10:00 01/09/20 09:43 Ecotrin - PO 81 mg DAILY OTILIA Administration Atorvastatin Calcium 40 mg 01/03/20 22:00 01/09/20 22:10 Lipitor - PO 40 mg HS OTILIA Administration Dexamethasone Sodium Phosphate 20 mg 01/08/20 18:30 01/09/20 09:42 Decadron Injection - IVPB 01/10/20 18:29 20 mg DAILY OTILIA Administration Docusate Sodium 100 mg 01/07/20 22:00 01/09/20 22:10 Colace - PO 100 mg BID OTILIA Administration Enoxaparin Sodium 40 mg 01/03/20 12:45 01/09/20 09:42 Lovenox - SQ 40 mg DAILY OTILIA Administration Gabapentin 300 mg 01/06/20 14:00 01/10/20 06:56 Neurontin - PO 300 mg TID OTILIA Administration Sodium Chloride 1,000 mls @ 60 mls/hr 01/07/20 23:00 01/10/20 00:00 Normal Saline - IV Not Given ASDIR OTILIA Insulin Aspart 1 vial 01/03/20 16:30 01/10/20 06:56 Novolog Vial Sliding Scale - SQ 3 unit TIDAC OTILIA Administration Protocol Lisinopril 10 mg 01/03/20 12:30 01/09/20 09:43 Prinivil PO 10 mg DAILY OTILIA Administration Metoprolol Succinate 50 mg 01/03/20 12:30 01/09/20 09:43 Toprol Xl - PO 50 mg DAILY OTILIA Administration Oxycodone HCl 5 mg 01/08/20 17:27 01/09/20 14:04 Roxicodone - PO 5 mg Q4H PRN Administration PAIN LEVEL 6-10 Pantoprazole Sodium 40 mg 01/09/20 10:00 01/09/20 09:43 Protonix - PO 40 mg DAILY OTILIA Administration Polyethylene Glycol 17 gm 01/07/20 18:09 01/09/20 09:44 Miralax (For Daily Use) - PO 17 gm DAILY PRN Administration CONSTIPATION Potassium Phos/Sodium Phos 1 packet 01/04/20 13:45 01/09/20 22:10 Phos-Nak Packet - PO 1 packet BID OTILIA Administration Senna 1 tab 01/07/20 22:00 01/09/20 22:10 Senna - PO 1 tab BID OTILIA Administration ASSESSMENT/PLAN: patient is a 69 year old F w PMHx of HTN, HLD, DM 2, recently diagnosed Multiple myeloma. The patient presented to [facility] with middle back pain radiating down her back which inhibits her from ambulation and is not able to reach the bathroom. Patient does not endorse further weakness, pain or incontinence. MRI reveals vertebral compression fractures with no spinal column involvement. 1. T11, L4-L5 compression fracture - MRI shows absent spinal cord impingement - oncology - dr kruger -rad onc - Dr. Mariscal - evaluate outpatient radiation therapy - neurosurgery - Dr. Escamilla - no intervention needed - oxycodone for pain relief 2. MM with Hypercalcemia and Hyperuricemia - Nephro - Dr. Ramos - fluids stopped - Calcitonin/bisphosphinates - improvement in calcium levels - hemonc follow up 3. HTN - home bp meds - Norvasc, MARTIN-I, and Metoprolol. 4. HLD - home statin 5. DM 2 - novolog sliding scale 6. DVT - SQ lovenox ATTENDING PHYSICIAN STATEMENT I saw and evaluated the patient. I reviewed the resident's note and discussed the case with the resident. I agree with the resident's findings and plan as documented. SUBJECTIVE: OBJECTIVE: ASSESSMENT AND PLAN:
[2020-01-10 07:17] LABS: MAGNESIUM 2.3 mg/dL (1.8-2.4); PHOSPHOROUS 2.8 mg/dL (2.5-4.9)
[2020-01-10] MEDS ORDERED: POTASSIUM CHLORIDE ORAL LIQUID 20 MEQ/15 ML PO ONE (07:28)
--- NOTE | 2020-01-10 07:41 | PN ---
Physical Exam: SUBJECTIVE: Patient seen and examined Patient was seen and reported to have improvement in back pain with oxycodone use. Patient is walking with a walker. OBJECTIVE: Vital Signs Period Temp Pulse Resp BP Sys/Kerr Pulse Ox Last 24 Hr 97.9 F-98.2 F 88-99 18-20 156-167/82-87 96-96 GENERAL: The patient is awake, alert, and fully oriented, in no acute distress. HEAD: Normal with no signs of trauma. EYES: PERRL, extraocular movements intact, sclera anicteric, conjunctiva clear. No ptosis. ENT: Ears normal, nares patent, oropharynx clear without exudates, moist mucous membranes. NECK: Trachea midline, full range of motion, supple. LUNGS: Breath sounds equal, clear to auscultation bilaterally, no wheezes, no crackles, no accessory muscle use. HEART: Regular rate and rhythm, S1, S2 without murmur, rub or gallop. ABDOMEN: Soft, nontender, nondistended, normoactive bowel sounds, no guarding, no rebound, no hepatosplenomegaly, no masses. EXTREMITIES: 2+ pulses, warm, well-perfused, no edema. NEUROLOGICAL: Cranial nerves II through XII grossly intact. Normal speech, gait not observed. PSYCH: Normal mood, normal affect. SKIN: Warm, dry, normal turgor, no rashes or lesions noted Laboratory Results - last 24 hr 01/09/20 01/09/20 01/09/20 09:29 10:20 11:14 WBC 9.3 RBC 2.41 L Hgb 7.0 L Hct 21.5 L MCV 88.9 MCH 29.0 MCHC 32.6 RDW 15.7 H Plt Count 238 MPV 7.2 L Absolute Neuts (auto) 8.1 H Neutrophils % 87.2 H D Lymphocytes % 8.7 D Monocytes % 3.8 Eosinophils % 0.0 D Basophils % 0.3 Nucleated RBC % 0 Sodium 141 Potassium 4.3 Chloride 112 H Carbon Dioxide 19 L Anion Gap 10 BUN 21.7 H Creatinine 1.0 Est GFR (CKD-EPI)AfAm 65.64 Est GFR (CKD-EPI)NonAf 56.64 POC Glucometer 305 Random Glucose 296 H Uric Acid 2.7 Calcium 7.0 L Phosphorus 3.5 Magnesium 1.5 L Total Bilirubin 0.6 AST 39 H ALT 43 Alkaline Phosphatase 89 LD Total 178 Total Protein 7.7 Albumin 2.6 L Crossmatch 01/09/20 01/10/20 01/10/20 16:08 05:40 05:40 WBC 14.6 H RBC 2.94 L Hgb 8.3 L Hct 25.4 L D MCV 86.5 MCH 28.2 MCHC 32.6 RDW 16.2 H Plt Count 346 D MPV 7.0 L Absolute Neuts (auto) 12.1 H Neutrophils % 82.5 Lymphocytes % 9.4 Monocytes % 7.9 D Eosinophils % 0.0 Basophils % 0.2 Nucleated RBC % 0 Sodium Potassium Chloride Carbon Dioxide Anion Gap BUN Creatinine Est GFR (CKD-EPI)AfAm Est GFR (CKD-EPI)NonAf POC Glucometer 359 Random Glucose Uric Acid Calcium Phosphorus Magnesium Total Bilirubin AST ALT Alkaline Phosphatase LD Total Total Protein Albumin Crossmatch See Detail 01/10/20 01/10/20 06:00 06:53 WBC RBC Hgb Hct MCV MCH MCHC RDW Plt Count MPV Absolute Neuts (auto) Neutrophils % Lymphocytes % Monocytes % Eosinophils % Basophils % Nucleated RBC % Sodium 142 Potassium 3.4 L Chloride 112 H Carbon Dioxide 18 L Anion Gap 12 BUN 22.0 H Creatinine 1.1 Est GFR (CKD-EPI)AfAm 58.50 Est GFR (CKD-EPI)NonAf 50.47 POC Glucometer 220 Random Glucose 240 H Uric Acid Calcium 8.7 Phosphorus 2.8 Magnesium 2.3 Total Bilirubin 0.2 AST 23 ALT 46 Alkaline Phosphatase 104 LD Total Total Protein 8.9 H Albumin 3.0 L Crossmatch Active Medications Generic Name Dose Route Start Last Admin Trade Name Manuelq PRN Reason Stop Dose Admin Acetaminophen 650 mg 01/08/20 17:29 Tylenol - PO Q6H PRN PAIN LEVEL 1-5 Allopurinol 300 mg 01/08/20 10:00 01/09/20 09:44 Zyloprim - PO 300 mg DAILY OTILIA Administration Amlodipine Besylate 5 mg 01/03/20 12:30 01/09/20 09:42 Norvasc - PO 5 mg DAILY OTILIA Administration Aspirin 81 mg 01/04/20 10:00 01/09/20 09:43 Ecotrin - PO 81 mg DAILY OTILIA Administration Atorvastatin Calcium 40 mg 01/03/20 22:00 01/09/20 22:10 Lipitor - PO 40 mg HS OTILIA Administration Dexamethasone Sodium Phosphate 20 mg 01/08/20 18:30 01/09/20 09:42 Decadron Injection - IVPB 01/10/20 18:29 20 mg DAILY OTILIA Administration Docusate Sodium 100 mg 01/07/20 22:00 01/09/20 22:10 Colace - PO 100 mg BID OTILIA Administration Enoxaparin Sodium 40 mg 01/03/20 12:45 01/09/20 09:42 Lovenox - SQ 40 mg DAILY OTILIA Administration Gabapentin 300 mg 01/06/20 14:00 01/10/20 06:56 Neurontin - PO 300 mg TID OTILIA Administration Sodium Chloride 1,000 mls @ 60 mls/hr 01/07/20 23:00 01/10/20 00:00 Normal Saline - IV Not Given ASDIR OTILIA Insulin Aspart 1 vial 01/03/20 16:30 01/10/20 06:56 Novolog Vial Sliding Scale - SQ 3 unit TIDAC OTILIA Administration Protocol Lisinopril 10 mg 01/03/20 12:30 01/09/20 09:43 Prinivil PO 10 mg DAILY OTILIA Administration Metoprolol Succinate 50 mg 01/03/20 12:30 01/09/20 09:43 Toprol Xl - PO 50 mg DAILY OTILIA Administration Oxycodone HCl 5 mg 01/08/20 17:27 01/09/20 14:04 Roxicodone - PO 5 mg Q4H PRN Administration PAIN LEVEL 6-10 Pantoprazole Sodium 40 mg 01/09/20 10:00 01/09/20 09:43 Protonix - PO 40 mg DAILY OTILIA Administration Polyethylene Glycol 17 gm 01/07/20 18:09 01/09/20 09:44 Miralax (For Daily Use) - PO 17 gm DAILY PRN Administration CONSTIPATION Potassium Chloride 40 meq 01/10/20 07:28 Potassium Chloride Oral Liquid PO 01/10/20 07:29 ONCE ONE Potassium Phos/Sodium Phos 1 packet 01/04/20 13:45 01/09/20 22:10 Phos-Nak Packet - PO 1 packet BID OTILIA Administration Senna 1 tab 01/07/20 22:00 01/09/20 22:10 Senna - PO 1 tab BID OTILIA Administration ASSESSMENT/PLAN: patient is a 69 year old F w PMHx of HTN, HLD, DM 2, recently diagnosed Multiple myeloma. The patient presented to [facility] with middle back pain radiating down her back which inhibits her from ambulation and is not able to reach the bathroom. Patient does not endorse further weakness, pain or incontinence. MRI reveals vertebral compression fractures with no spinal column involvement. 1. T11, L4-L5 compression fracture - MRI shows absent spinal cord impingement - oncology - dr kruger - Revlimid, Velcade as in-patient, IV Dexa -rad onc - Dr. Mariscal - evaluate outpatient radiation therapy - neurosurgery - Dr. Escamilla - no intervention needed - oxycodone for pain relief 2. MM with Hypercalcemia and Hyperuricemia - Nephro - Dr. Ramos - fluids stopped - Calcitonin/bisphosphinates - improvement in calcium levels - H/H 7.0/21.5 - monitor and transfuse - elevated uric acid levels as a result of increased cell turnover - allopurinol 3. HTN - home bp meds - Norvasc, MARTIN-I, and Metoprolol. 4. HLD - home statin 5. DM 2 - novolog sliding scale 6. DVT - SQ lovenox Visit type - Emergency Visit Emergency Visit: Yes ED Registration Date: 01/03/20 Care time: The patient presented to the Emergency Department on the above date and was hospitalized for further evaluation of their emergent condition. - New Patient This patient is new to me today: No - Critical Care Critical Care patient: No - Discharge Referral Referred to [facility] No ATTENDING PHYSICIAN STATEMENT I saw and evaluated the patient. I reviewed the resident's note and discussed the case with the resident. I agree with the resident's findings and plan as documented. SUBJECTIVE: OBJECTIVE: ASSESSMENT AND PLAN:
[2020-01-10] MEDS ORDERED: INSULIN (NOVOLOG) ASPART 100 UNITS/ML 10ML VIAL ONE (08:01)
[2020-01-10] MEDS: oxyCODONE HCL 5 MG TABLET PO PRN ×2 (08:12→22:04)
[2020-01-10] MEDS: ENOXAPARIN NA (PORCINE) 40 MG/0.4 ML DISP.SYRIN SQ SCH (09:31)
[2020-01-10] MEDS: ALLOPURINOL 300 MG TABLET (FP) PO SCH (09:32)
[2020-01-10] MEDS: DOCUSATE SODIUM 100 MG CAPSULE (FP) PO SCH ×2 (09:32→22:01)
[2020-01-10] MEDS: amLODIPine BESYLATE 5 MG TABLET (FP) PO SCH (09:32)
[2020-01-10] MEDS: DEXAMETHASONE SOD PHOSPHATE 10 MG/1 ML VIAL IVPB SCH (09:32)
[2020-01-10] MEDS: LISINOPRIL 10 MG TABLET (FP) PO SCH (09:32)
[2020-01-10] MEDS: NAPH,MB-DB/K PH,MBDB POWDER PACKET PO SCH ×2 (09:32→22:01)
[2020-01-10] MEDS: SENNOSIDES 8.6MG TABLET (FP) PO SCH ×2 (09:32→22:02)
[2020-01-10] MEDS: PANTOPRAZOLE 40 MG TABLET PO SCH (09:32)
[2020-01-10] MEDS: ASPIRIN COATED 81 MG TABLET.EC PO SCH (09:33)
--- NOTE | 2020-01-10 13:35 | PN ---
Physical Exam: SUBJECTIVE: Patient seen and examined. Pt. endorses improved pain and ambulation with medication. Pt. with improved spirits. OBJECTIVE: Vital Signs Period Temp Pulse Resp BP Sys/Kerr Pulse Ox Last 24 Hr 97.9 F-98.2 F 88-99 18-20 161-167/82-87 96-96 GENERAL: The patient is awake, alert, and fully oriented, in mild distress due to pain. HEAD: Normal with no signs of trauma. EYES:conjunctiva clear. ENT: Moist mucous membranes. LUNGS: Breath sounds equal, clear to auscultation bilaterally, no wheezes, no crackles, no accessory muscle use. HEART: Regular rate and rhythm, S1, S2 with systolic murmur ABDOMEN: Soft, nontender, nondistended, normoactive bowel sounds EXTREMITIES: 2+ dorsal pedal pulses, warm, well-perfused, no calf tenderness, no edema. NEUROLOGICAL: Normal speech, gait not observed. PSYCH: Normal mood, normal affect. SKIN: Warm, dry, normal turgor Laboratory Results - last 24 hr 01/09/20 01/10/20 01/10/20 16:08 05:40 05:40 WBC 14.6 H RBC 2.94 L Hgb 8.3 L Hct 25.4 L D MCV 86.5 MCH 28.2 MCHC 32.6 RDW 16.2 H Plt Count 346 D MPV 7.0 L Absolute Neuts (auto) 12.1 H Neutrophils % 82.5 Lymphocytes % 9.4 Monocytes % 7.9 D Eosinophils % 0.0 Basophils % 0.2 Nucleated RBC % 0 Sodium Potassium Chloride Carbon Dioxide Anion Gap BUN Creatinine Est GFR (CKD-EPI)AfAm Est GFR (CKD-EPI)NonAf POC Glucometer 359 Random Glucose Calcium Phosphorus Magnesium Total Bilirubin AST ALT Alkaline Phosphatase Total Protein Albumin Blood Type B POSITIVE Antibody Screen Positive H Prewarmed Antibody Srcn Negative Antibody Identification Cold agg Antigen Identification No Result Required. Crossmatch See Detail 01/10/20 01/10/20 01/10/20 06:00 06:53 11:24 WBC RBC Hgb Hct MCV MCH MCHC RDW Plt Count MPV Absolute Neuts (auto) Neutrophils % Lymphocytes % Monocytes % Eosinophils % Basophils % Nucleated RBC % Sodium 142 Potassium 3.4 L Chloride 112 H Carbon Dioxide 18 L Anion Gap 12 BUN 22.0 H Creatinine 1.1 Est GFR (CKD-EPI)AfAm 58.50 Est GFR (CKD-EPI)NonAf 50.47 POC Glucometer 220 220 Random Glucose 240 H Calcium 8.7 Phosphorus 2.8 Magnesium 2.3 Total Bilirubin 0.2 AST 23 ALT 46 Alkaline Phosphatase 104 Total Protein 8.9 H Albumin 3.0 L Blood Type Antibody Screen Prewarmed Antibody Srcn Antibody Identification Antigen Identification Crossmatch Active Medications Generic Name Dose Route Start Last Admin Trade Name Freq PRN Reason Stop Dose Admin Acetaminophen 650 mg 01/08/20 17:29 Tylenol - PO Q6H PRN PAIN LEVEL 1-5 Allopurinol 300 mg 01/08/20 10:00 01/10/20 09:32 Zyloprim - PO 300 mg DAILY OTILIA Administration Amlodipine Besylate 5 mg 01/03/20 12:30 01/10/20 09:32 Norvasc - PO 5 mg DAILY OTILIA Administration Aspirin 81 mg 01/04/20 10:00 01/10/20 09:33 Ecotrin - PO 81 mg DAILY OTILIA Administration Atorvastatin Calcium 40 mg 01/03/20 22:00 01/09/20 22:10 Lipitor - PO 40 mg HS OTILIA Administration Dexamethasone Sodium Phosphate 20 mg 01/08/20 18:30 01/10/20 09:32 Decadron Injection - IVPB 01/10/20 18:29 20 mg DAILY OTILIA Administration Docusate Sodium 100 mg 01/07/20 22:00 01/10/20 09:32 Colace - PO 100 mg BID OTILIA Administration Gabapentin 300 mg 01/06/20 14:00 01/10/20 06:56 Neurontin - PO 300 mg TID OTILIA Administration Sodium Chloride 1,000 mls @ 30 mls/hr 01/07/20 23:00 01/10/20 00:00 Normal Saline - IV Not Given ASDIR OTILIA Insulin Aspart 1 vial 01/03/20 16:30 01/10/20 11:27 Novolog Vial Sliding Scale - SQ 3 unit TIDAC OTILIA Administration Protocol Lisinopril 10 mg 01/03/20 12:30 01/10/20 09:32 Prinivil PO 10 mg DAILY OTILIA Administration Metoprolol Succinate 50 mg 01/03/20 12:30 01/10/20 09:32 Toprol Xl - PO 50 mg DAILY OTILIA Administration Oxycodone HCl 5 mg 01/08/20 17:27 01/10/20 08:12 Roxicodone - PO 5 mg Q4H PRN Administration PAIN LEVEL 6-10 Pantoprazole Sodium 40 mg 01/09/20 10:00 01/10/20 09:32 Protonix - PO 40 mg DAILY OTILIA Administration Polyethylene Glycol 17 gm 01/07/20 18:09 01/09/20 09:44 Miralax (For Daily Use) - PO 17 gm DAILY PRN Administration CONSTIPATION Potassium Phos/Sodium Phos 1 packet 01/04/20 13:45 01/10/20 09:32 Phos-Nak Packet - PO 1 packet BID OTILIA Administration Senna 1 tab 01/07/20 22:00 01/10/20 09:32 Senna - PO 1 tab BID OTILIA Administration ASSESSMENT/PLAN: Pt. is a 69 y.o. F w/ PMHx. of Multiple Myeloma (recently diagnosed, follows with Dr. Lerma) HTN, HLD and DM sent to ED by Dr. Lerma for midline back pain. Patient had an MRI done 2 days ago that showed multiple compression fractures at T11, L4-L5 without spinal cord impingement. The patient is unable to walk due to the pain. She states she has had urinary incontinence however this was due to the inability to go to the restroom due to pain rather than true incontinence. Acknowledges to 10/10 pain and it has been worsening recently. Dr. Lerma has planned to start her on systemic therapy previously. #Multiple Myeloma f/u reccomendations from Radiation Oncology, Per Pt. no definitive date has been set yet. Palliative RT therapy may improve ambulation and pain. C/w PT Nephrology consult appreciated for hypercalcemia, Pt. is s/p IVF, Zometa and Calcitonin, continue to monitor Calcium levels, Pt. may need correction bisphosphonate therapy c/w Dexamethasone and Allopurinol After Rad-Onc input will consider starting CyBorD chemotherapy (Cyclophosphamide, Bortezomib and Dexamethasone). c/w Lovenox for DVT PPx. while inpatient Not a candidate for Neurosurgery Visit type - Emergency Visit Emergency Visit: Yes ED Registration Date: 01/03/20 Care time: The patient presented to the Emergency Department on the above date and was hospitalized for further evaluation of their emergent condition. - New Patient This patient is new to me today: No - Critical Care Critical Care patient: No - Discharge Referral Referred to [facility] No ATTENDING PHYSICIAN STATEMENT I saw and evaluated the patient. I reviewed the resident's note and discussed the case with the resident. I agree with the resident's findings and plan as documented. SUBJECTIVE: OBJECTIVE: ASSESSMENT AND PLAN:
[2020-01-10] MEDS: SODIUM CHLORIDE 1,000 ML IV SCH ×3 (15:02→23:15)
--- NOTE | 2020-01-10 15:43 | PN ---
Progress Note, Physician History of Present Illness: Pt seen and examined at bedside. She is awake and alert. She denies shortness of breath. - Current Medication List Current Medications: Active Medications Acetaminophen (Tylenol -) 975 mg PO Q8H [facility] Allopurinol (Zyloprim -) 300 mg PO DAILY [facility] Last Admin: 01/10/20 09:32 Dose: 300 mg Documented by: Amlodipine Besylate (Norvasc -) 5 mg PO DAILY [facility] Last Admin: 01/10/20 09:32 Dose: 5 mg Documented by: Aspirin (Ecotrin -) 81 mg PO DAILY [facility] Last Admin: 01/10/20 09:33 Dose: 81 mg Documented by: Atorvastatin Calcium (Lipitor -) 40 mg PO HS [facility] Last Admin: 01/09/20 22:10 Dose: 40 mg Documented by: Dexamethasone Sodium Phosphate (Decadron Injection -) 20 mg IVPB DAILY [facility] Stop: 01/10/20 18:29 Last Admin: 01/10/20 09:32 Dose: 20 mg Documented by: Docusate Sodium (Colace -) 100 mg PO BID [facility] Last Admin: 01/10/20 09:32 Dose: 100 mg Documented by: Gabapentin (Neurontin -) 300 mg PO TID [facility] Last Admin: 01/10/20 13:46 Dose: 300 mg Documented by: Sodium Chloride (Normal Saline -) 1,000 mls @ 30 mls/hr IV ASDIR [facility] Last Admin: 01/10/20 15:02 Dose: 30 mls/hr Documented by: Insulin Aspart (Novolog Vial Sliding Scale -) 1 vial SQ TIDAC [facility]; Protocol Last Admin: 01/10/20 11:27 Dose: 3 unit Documented by: Lisinopril (Prinivil) 10 mg PO DAILY [facility] Last Admin: 01/10/20 09:32 Dose: 10 mg Documented by: Metoprolol Succinate (Toprol Xl -) 50 mg PO DAILY [facility] Last Admin: 01/10/20 09:32 Dose: 50 mg Documented by: Oxycodone HCl (Roxicodone -) 5 mg PO Q4H PRN PRN Reason: PAIN LEVEL 6-10 Last Admin: 01/10/20 08:12 Dose: 5 mg Documented by: Pantoprazole Sodium (Protonix -) 40 mg PO DAILY [facility] Last Admin: 01/10/20 09:32 Dose: 40 mg Documented by: Polyethylene Glycol (Miralax (For Daily Use) -) 17 gm PO DAILY PRN PRN Reason: CONSTIPATION Last Admin: 01/09/20 09:44 Dose: 17 gm Documented by: Potassium Phos/Sodium Phos (Phos-Nak Packet -) 1 packet PO BID OTILIA Last Admin: 01/10/20 09:32 Dose: 1 packet Documented by: Senna (Senna -) 1 tab PO BID OTILIA Last Admin: 01/10/20 09:32 Dose: 1 tab Documented by: - Objective Vital Signs: Vital Signs Temperature 98.5 F 01/10/20 14:29 Pulse Rate 88 01/10/20 14:29 Respiratory Rate 20 01/10/20 14:29 Blood Pressure 133/75 01/10/20 14:29 O2 Sat by Pulse Oximetry (%) 95 01/10/20 09:00 Constitutional: Yes: Calm Eyes: Yes: Conjunctiva Clear HENT: Yes: Atraumatic Neck: Yes: Supple Cardiovascular: Yes: S1, S2 Respiratory: Yes: CTA Bilaterally Gastrointestinal: Yes: Normal Bowel Sounds, Soft Genitourinary: Yes: WNL Musculoskeletal: Yes: WNL Edema: No Neurological: Yes: Oriented Psychiatric: Yes: Oriented Labs: CBC, BMP 01/10/20 05:40 01/10/20 06:00 INR, PTT INR 1.03 (0.83-1.09) 01/03/20 10:00 Problem List - Problems (1) Hypercalcemia Code(s): E83.52 - HYPERCALCEMIA (2) Multiple myeloma Code(s): C90.00 - MULTIPLE MYELOMA NOT HAVING ACHIEVED REMISSION (3) Spine fracture Code(s): QWG8125 - Assessment/Plan Current Medications Generic Name Dose Route Start Last Admin Trade Name Freq PRN Reason Stop Dose Admin Acetaminophen 975 mg 01/10/20 14:45 Tylenol - PO Q8H OTILIA Allopurinol 300 mg 01/08/20 10:00 01/10/20 09:32 Zyloprim - PO 300 mg DAILY OTILIA Administration Amlodipine Besylate 5 mg 01/03/20 12:30 01/10/20 09:32 Norvasc - PO 5 mg DAILY OTILIA Administration Aspirin 81 mg 01/04/20 10:00 01/10/20 09:33 Ecotrin - PO 81 mg DAILY OTILIA Administration Atorvastatin Calcium 40 mg 01/03/20 22:00 01/09/20 22:10 Lipitor - PO 40 mg HS OTILIA Administration Dexamethasone Sodium Phosphate 20 mg 01/08/20 18:30 01/10/20 09:32 Decadron Injection - IVPB 01/10/20 18:29 20 mg DAILY OTILIA Administration Docusate Sodium 100 mg 01/07/20 22:00 01/10/20 09:32 Colace - PO 100 mg BID OTILIA Administration Gabapentin 300 mg 01/06/20 14:00 01/10/20 13:46 Neurontin - PO 300 mg TID OTLIIA Administration Sodium Chloride 1,000 mls @ 30 mls/hr 01/07/20 23:00 01/10/20 15:02 Normal Saline - IV 30 mls/hr ASDIR OTILIA Administration Insulin Aspart 1 vial 01/03/20 16:30 01/10/20 11:27 Novolog Vial Sliding Scale - SQ 3 unit TIDAC OTILIA Administration Protocol Lisinopril 10 mg 01/03/20 12:30 01/10/20 09:32 Prinivil PO 10 mg DAILY OTILIA Administration Metoprolol Succinate 50 mg 01/03/20 12:30 01/10/20 09:32 Toprol Xl - PO 50 mg DAILY OTILIA Administration Oxycodone HCl 5 mg 01/08/20 17:27 01/10/20 08:12 Roxicodone - PO 5 mg Q4H PRN Administration PAIN LEVEL 6-10 Pantoprazole Sodium 40 mg 01/09/20 10:00 01/10/20 09:32 Protonix - PO 40 mg DAILY OTILIA Administration Polyethylene Glycol 17 gm 01/07/20 18:09 01/09/20 09:44 Miralax (For Daily Use) - PO 17 gm DAILY PRN Administration CONSTIPATION Potassium Phos/Sodium Phos 1 packet 01/04/20 13:45 01/10/20 09:32 Phos-Nak Packet - PO 1 packet BID OTILIA Administration Senna 1 tab 01/07/20 22:00 01/10/20 09:32 Senna - PO 1 tab BID OTILIA Administration Impression 1. hypercalcemia 2. multiple myelpma 3. htn 4. hld 5. dm 6. hypokalemia 7. compression fractures 8. CKD Plan - replace potassium - can stop fluids - monitor calcium - monitor lytes - renal function stable - s/p zometa - discussed with medical team
--- NOTE | 2020-01-10 15:54 | PN ---
Teaching Attending Note Name of Resident: Viktor Escobar ATTENDING PHYSICIAN STATEMENT I saw and evaluated the patient. I reviewed the resident's note and discussed the case with the resident. I agree with the resident's findings and plan as documented. SUBJECTIVE: Seen and examined at bedside. Patient now wearing back brace. Reports pain not well controlled with oxycodone. Will start 3 times daily standing Tylenol. OBJECTIVE: Last Vital Signs Temp Pulse Resp BP Pulse Ox 98.5 F 88 20 133/75 95 01/10/20 14:29 01/10/20 14:29 01/10/20 14:29 01/10/20 14:29 01/10/20 09:00 PE: per resident note Labs/Imaging: reviewed ASSESSMENT AND PLAN: 69 year old male with history of HTN, HLD, DM 2, recently diagnosed MM (follows with Dr. Lerma), presented with back pain, limiting mobility and ability to reach bathroom in time. She denies LE weakness or incontinence. She was found to have multiple spinal vertebral pathologic fractures. MRI T/L Spine - multiple compression fractures at T11, L4-L5 without spinal cord impingement. L4-5 degenerative spondylolisthesis with stenosis #Multilevel T/L Spine pathologic fractures secondary to MM -No evidence of spinal cord compression. -Seen by Oncology, Rad-Onc, Neurosurgery -As per Neurosurgery - No surgical intervention recommended due to extensive disease. -Rad-Onc recommends palliative RTx - discussed with Dr. Call who thinks this should be done as in-patient. -Started on IV Dexa. As per Dr. Call, patient should also start Revlimid, Velcade as in-patient. Further treatment plan as per Oncology. -Analgesia with trial of oxycodone appears insufficient. Started standing tylenol - Pain Management consulted, awaiting eval. Neurosurgery to consider TLSO MRI C-Spine as requested by Oncology. # MM with Hypercalcemia and Hyperuricemia Seen by Nephrology for Hypercalcemia - IV hydration stopped. s/p Bisphosphonate/Calcitonin. Hypercalcemia improved. Allopurinol started for elevated Uric Acid. Anemia secondary to MM - H/H 7.0/21.5 - mild drop, will monitor and transfuse PRN. Hematology/Oncology to further guide further management. # HTN - initially uncontrolled due to pain. Now improved on home meds Norvasc, MARTIN-I, and Metoprolol. # HLD - continue Statin. # DM 2 - Novolog as per sliding scale. # Hypokalemia/Hypophosphatemia/Hypomagnesemia - repleted. # Hypomagnesemia - repleted DVT Px - Lovenox SQ. Dispo - depending on Oncology plan for Rx. Dr. Call wants to arrange in- patient Chemotherapy and in-patient Radiation therapy. COVID PCR negative. Problem List - Problems (1) Spine fracture Code(s): PLG0913 -
[2020-01-10] MEDS ORDERED: INSULIN (LEVEMIR) 100 UNITS/ML UNITS SQ ONE ×2 (16:24→16:31)
[2020-01-10] MEDS: ACETAMINOPHEN 500 MG TABLET (FP) PO SCH ×2 (16:28→23:14)
--- NOTE | 2020-01-10 18:51 | PN ---
Teaching Attending Note Name of Resident: Christian Garcia ATTENDING PHYSICIAN STATEMENT I saw and evaluated the patient. I reviewed the resident's note and discussed the case with the resident. I agree with the resident's findings and plan as documented. S: Doing better than last time I saw her. Recommend: 1) Dexamethasone 40 mg po weekly and Bortezomib (01/09/20) 2) Plan to add Lenalidomide at the time of RT. 3) Pathologic compression fractures/thecal sac compression T4/11, L4/5 on MRI 12/29. Not a candidate for Neurosurgery 4) RT planning per Dr. Chester 5) Please see Dr. Garcia's note for details 6) Thank you for this consultation
--- NOTE | 2020-01-10 20:18 | PN ---
Progress Note (short form) - Note Progress Note: Radiation Oncology follow up Began chemotherapy without adverse effects. No incontinence or paresthesia. Persistent back pain especially with movement and transfers out of bed on analgesic regimen. Uses lower back brace. Neurologically unchanged. A/P Multiple myeloma with multiple pathologic vertebral compression fractures/bony retropulsion/thecal sac impingement, most symptomatic at T11 and L1. No intervention planned by neurosurgery and unlikely to benefit from kyphoplasty at this time. Patient would like to consider TLSO brace. As pain control continues to be an issue, limiting ambulation and mobility, will consider inpt RT. Discussed BAR of palliative RT and she agrees to proceed. Will arrange CT simulation followed by 5 fx of RT. Await hospital approval for transportation. Pain mgt, PT, neurosx f/u. Systemic therapy per onc team.
[2020-01-10] MEDS: ATORVASTATIN CA 40 MG TABLET (FP) PO SCH (22:02)
[2020-01-11] MEDS ORDERED: INSULIN (NOVOLOG) ASPART 100 UNITS/ML 10ML VIAL ONE ×3 (06:39→17:48)
[2020-01-11] MEDS: amLODIPine BESYLATE 5 MG TABLET (FP) PO SCH (06:41)
[2020-01-11] MEDS: GABAPENTIN 300 MG CAPSULE PO SCH ×3 (06:41→21:04)
[2020-01-11] MEDS: INSULIN SLIDING SCALE (NOVOLOG) 1 VIAL SQ SCH ×3 (06:41→17:49)
[2020-01-11] MEDS: ACETAMINOPHEN 500 MG TABLET (FP) PO SCH (06:49)
[2020-01-11 07:41] LABS: BASO % 0.4 % (0-2.0); HEMATOCRIT 24.4 % (32.4-45.2); HEMOGLOBIN 7.8 GM/dL (10.7-15.3); LYMPH % 11.4 % (8-40); MCHC 31.9 g/dl (32.0-36.0); MEAN CELL VOLUME 87.6 fl (80-96); MEAN PLT VOLUME 6.8 fl (7.5-11.1); MONO % 5.8 % (3.8-10.2); NEUT % 82.4 % (42.8-82.8); PLATELET COUNT 341 K/MM3 (134-434); RBC 2.79 M/mm3 (3.60-5.2); RDW 16.1 % (11.6-15.6); WHITE BLOOD COUNT 13.6 K/mm3 (4.0-10.0)
[2020-01-11 08:04] LABS: BILIRUBIN,TOTAL 0.3 mg/dL (0.2-1); BLOOD UREA NITROGEN 22.9 mg/dL (7-18); CALCIUM 8.6 mg/dL (8.5-10.1); CREATININE 0.9 mg/dL (0.55-1.3); MAGNESIUM 1.9 mg/dL (1.8-2.4); PHOSPHOROUS 2.2 mg/dL (2.5-4.9); POTASSIUM 3.2 mmol/L (3.5-5.1); TOT PROT 8.5 g/dl (6.4-8.2)
[2020-01-11] MEDS ORDERED: amLODIPine BESYLATE 10 MG TABLET (FP) PO SCH (08:47)
[2020-01-11] MEDS: PANTOPRAZOLE 40 MG TABLET PO SCH (09:08)
[2020-01-11] MEDS: NAPH,MB-DB/K PH,MBDB POWDER PACKET PO SCH ×2 (09:08→21:04)
[2020-01-11] MEDS: SENNOSIDES 8.6MG TABLET (FP) PO SCH ×2 (09:08→21:04)
[2020-01-11] MEDS: LISINOPRIL 10 MG TABLET (FP) PO SCH (09:08)
[2020-01-11] MEDS: ASPIRIN COATED 81 MG TABLET.EC PO SCH (09:08)
[2020-01-11] MEDS: DOCUSATE SODIUM 100 MG CAPSULE (FP) PO SCH ×2 (09:09→21:04)
[2020-01-11] MEDS: ALLOPURINOL 300 MG TABLET (FP) PO SCH (09:09)
--- NOTE | 2020-01-11 10:05 | PN ---
Physical Exam: SUBJECTIVE: Patient seen and examined Patient was seen at bedside. Patient endorsed a minimization of her back pain. She reports good improvement with the oxycodone. OBJECTIVE: Vital Signs Period Temp Pulse Resp BP Sys/Kerr Pulse Ox Last 24 Hr 97.5 F-98.9 F 69-88 16-20 133-174/75-88 95-97 GENERAL: The patient is awake, alert, and fully oriented, in no acute distress. HEAD: Normal with no signs of trauma. EYES: PERRL, extraocular movements intact, sclera anicteric, conjunctiva clear. No ptosis. ENT: Ears normal, nares patent, oropharynx clear without exudates, moist mucous membranes. NECK: Trachea midline, full range of motion, supple. LUNGS: Breath sounds equal, clear to auscultation bilaterally, no wheezes, no crackles, no accessory muscle use. HEART: Regular rate and rhythm, S1, S2 without murmur, rub or gallop. ABDOMEN: Soft, nontender, nondistended, normoactive bowel sounds, no guarding, no rebound, no hepatosplenomegaly, no masses. EXTREMITIES: 2+ pulses, warm, well-perfused, no edema. NEUROLOGICAL: Cranial nerves II through XII grossly intact. Normal speech, gait not observed. PSYCH: Normal mood, normal affect. SKIN: Warm, dry, normal turgor, no rashes or lesions noted Laboratory Results - last 24 hr 01/10/20 01/10/20 01/10/20 05:40 11:24 16:29 WBC RBC Hgb Hct MCV MCH MCHC RDW Plt Count MPV Absolute Neuts (auto) Neutrophils % Lymphocytes % Monocytes % Eosinophils % Basophils % Nucleated RBC % Sodium Potassium Chloride Carbon Dioxide Anion Gap BUN Creatinine Est GFR (CKD-EPI)AfAm Est GFR (CKD-EPI)NonAf POC Glucometer 220 348 Random Glucose Calcium Phosphorus Magnesium Total Bilirubin AST ALT Alkaline Phosphatase Total Protein Albumin Blood Type B POSITIVE Antibody Screen Positive H Prewarmed Antibody Srcn Negative Antibody Identification Cold agg Antigen Identification No Result Required. Crossmatch See Detail 01/11/20 01/11/20 01/11/20 05:54 07:17 07:17 WBC 13.6 H RBC 2.79 L Hgb 7.8 L Hct 24.4 L MCV 87.6 MCH 28.0 MCHC 31.9 L RDW 16.1 H Plt Count 341 MPV 6.8 L Absolute Neuts (auto) 11.2 H Neutrophils % 82.4 Lymphocytes % 11.4 D Monocytes % 5.8 Eosinophils % 0.0 Basophils % 0.4 Nucleated RBC % 0 Sodium 146 H Potassium 3.2 L Chloride 115 H Carbon Dioxide 21 Anion Gap 10 BUN 22.9 H Creatinine 0.9 Est GFR (CKD-EPI)AfAm 74.56 Est GFR (CKD-EPI)NonAf 64.33 POC Glucometer 229 Random Glucose 195 H Calcium 8.6 Phosphorus 2.2 L Magnesium 1.9 Total Bilirubin 0.3 AST 23 ALT 49 Alkaline Phosphatase 93 Total Protein 8.5 H Albumin 3.0 L Blood Type Antibody Screen Prewarmed Antibody Srcn Antibody Identification Antigen Identification Crossmatch Active Medications Generic Name Dose Route Start Last Admin Trade Name Freq PRN Reason Stop Dose Admin Acetaminophen 975 mg 01/10/20 14:45 01/11/20 06:49 Tylenol - PO 975 mg Q8H OTILIA Administration Allopurinol 300 mg 01/08/20 10:00 01/11/20 09:09 Zyloprim - PO 300 mg DAILY OTILIA Administration Amlodipine Besylate 10 mg 01/11/20 08:47 Norvasc - PO DAILY OTILIA Aspirin 81 mg 01/04/20 10:00 01/11/20 09:08 Ecotrin - PO 81 mg DAILY OTILIA Administration Atorvastatin Calcium 40 mg 01/03/20 22:00 01/10/20 22:02 Lipitor - PO 40 mg HS OTILIA Administration Docusate Sodium 100 mg 01/07/20 22:00 01/11/20 09:09 Colace - PO 100 mg BID OTILIA Administration Gabapentin 300 mg 01/06/20 14:00 01/11/20 06:41 Neurontin - PO 300 mg TID OTILIA Administration Sodium Chloride 1,000 mls @ 30 mls/hr 01/07/20 23:00 01/10/20 23:15 Normal Saline - IV Not Given ASDIR OTILIA Insulin Aspart 1 vial 01/03/20 16:30 01/11/20 06:41 Novolog Vial Sliding Scale - SQ 3 unit TIDAC OTILIA Administration Protocol Lisinopril 10 mg 01/03/20 12:30 01/11/20 09:08 Prinivil PO 10 mg DAILY OTILIA Administration Metoprolol Succinate 50 mg 01/03/20 12:30 01/11/20 09:08 Toprol Xl - PO 50 mg DAILY OTILIA Administration Oxycodone HCl 5 mg 01/08/20 17:27 01/10/20 22:04 Roxicodone - PO 5 mg Q4H PRN Administration PAIN LEVEL 6-10 Pantoprazole Sodium 40 mg 01/09/20 10:00 01/11/20 09:08 Protonix - PO 40 mg DAILY OTILIA Administration Polyethylene Glycol 17 gm 01/07/20 18:09 01/09/20 09:44 Miralax (For Daily Use) - PO 17 gm DAILY PRN Administration CONSTIPATION Potassium Phos/Sodium Phos 1 packet 01/04/20 13:45 01/11/20 09:08 Phos-Nak Packet - PO 1 packet BID OTILIA Administration Senna 1 tab 01/07/20 22:00 01/11/20 09:08 Senna - PO 1 tab BID OTILIA Administration ASSESSMENT/PLAN: Celso is a 69F with a PMHx of HTN, HLD, DM 2, recently diagnosed multiple myeloma. The patient presented with radiating back pain that prevents her from ambulating to the bathroom. Patient was found to have compression fractures in T4,T11, L4 and L5 on imaging secondary to multiple myeloma osteolytic lesions. Neurosurgery found no involvement with the spinal column thus no surgical intervention necessary. Patient is not urinary or fecally incontinent. Patient denies numbness or tingling in LE. 1. Compression fracture of vertebra secondary to multiple myeloma - Patient responds well to oxycodone but needs a longer standing dose of pain relief - Patient responds well to low back brace - Ordered tylenol 1g standing dose will revaluate pain scale in am - Pain management consulted - Oxcodone 5mg PRN - C- Spine has no significant results - Rad-Onc recommends palliative RTx - discussed with Dr. Call who thinks this should be done as in-patient. -Patient was started on IV dexamethasone/ patient should also start Revlimid, Velcade as in-patient. Further treatment plan as per Oncology. 2. Hyperuricemia/hypercalcemia - nephrology follow up outpatient - Fluids stopped - calcium levels improved after bisphosphonate and calcitonin administration Hypercalcemia improved 3. HTN - improved on home meds -Norvasc, -MARTIN-I, -Metoprolol. 4. HLD - - continue Statin. 5. DM 2 - Novolog as per sliding scale. 6. DVT Px - Lovenox SQ. 7. Dispo - in-patient Chemotherapy and in-patient Radiation therapy. COVID PCR negative. Visit type - Emergency Visit Emergency Visit: Yes ED Registration Date: 01/03/20 Care time: The patient presented to the Emergency Department on the above date and was hospitalized for further evaluation of their emergent condition. - New Patient This patient is new to me today: No - Critical Care Critical Care patient: No - Discharge Referral Referred to [facility] No ATTENDING PHYSICIAN STATEMENT I saw and evaluated the patient. I reviewed the resident's note and discussed the case with the resident. I agree with the resident's findings and plan as documented. SUBJECTIVE: OBJECTIVE: ASSESSMENT AND PLAN:
[2020-01-11] MEDS ORDERED: amLODIPine BESYLATE 5 MG TABLET (FP) PO ONE (11:00)
[2020-01-11] MEDS ORDERED: ACETAMINOPHEN 500 MG TABLET (FP) PO STA (11:38)
[2020-01-11] MEDS: oxyCODONE HCL 5 MG TABLET PO PRN ×3 (11:44→18:48)
[2020-01-11 14:24] VITALS: BMI 24.7
--- NOTE | 2020-01-11 14:52 | PN ---
Teaching Attending Note Name of Resident: Viktor Escobar ATTENDING PHYSICIAN STATEMENT I saw and evaluated the patient. I reviewed the resident's note and discussed the case with the resident. I agree with the resident's findings and plan as documented. SUBJECTIVE: Seen and examined at bedside. Still complaining of pain. Planning inpatient radiation therapy and will consult pain management. OBJECTIVE: Last Vital Signs Temp Pulse Resp BP Pulse Ox 98.9 F 84 18 163/76 97 01/11/20 08:25 01/11/20 10:37 01/11/20 10:37 01/11/20 10:37 01/11/20 09:00 PE: per resident note Labs/Imaging: reviewed ASSESSMENT AND PLAN: 69 year old male with history of HTN, HLD, DM 2, recently diagnosed MM (follows with Dr. Lerma), presented with back pain, limiting mobility and ability to reach bathroom in time. She denies LE weakness or incontinence. She was found to have multiple spinal vertebral pathologic fractures. MRI T/L Spine - multiple compression fractures at T11, L4-L5 without spinal cord impingement. L4-5 degenerative spondylolisthesis with stenosis #Multilevel T/L Spine pathologic fractures secondary to MM -No evidence of spinal cord compression. -Seen by Oncology, Rad-Onc, Neurosurgery -As per Neurosurgery - No surgical intervention recommended due to extensive disease. -Rad-Onc recommends palliative RTx - discussed with Dr. Call who thinks this should be done as in-patient. -Started on IV Dexa. As per Dr. Call, patient should also start Revlimid, Velcade as in-patient. Further treatment plan as per Oncology. -Analgesia with trial of oxycodone appears insufficient. Started standing tylenol - Pain Management consulted, awaiting eval. Neurosurgery to consider TLSO MRI C-Spine as requested by Oncology. # MM with Hypercalcemia and Hyperuricemia Seen by Nephrology for Hypercalcemia - IV hydration stopped. s/p Bisphosphonate/Calcitonin. Hypercalcemia improved. Allopurinol started for elevated Uric Acid. Anemia secondary to MM - H/H 7.0/21.5 - mild drop, will monitor and transfuse PRN. Hematology/Oncology to further guide further management. # HTN - initially uncontrolled due to pain. Now improved on home meds Norvasc, MARTIN-I, and Metoprolol. # HLD - continue Statin. # DM 2 - Novolog as per sliding scale. # Hypokalemia/Hypophosphatemia/Hypomagnesemia - repleted. # Hypomagnesemia - repleted DVT Px - Lovenox SQ. Dispo - depending on Oncology plan for Rx. Dr. Call wants to arrange in- patient Chemotherapy and in-patient Radiation therapy. COVID PCR negative. Problem List - Problems (1) Spine fracture Code(s): VSY2688 -
[2020-01-11] MEDS ORDERED: POTASSIUM CHLORIDE ORAL LIQUID 20 MEQ/15 ML PO ONE (19:27)
--- NOTE | 2020-01-11 19:27 | PN ---
Progress Note, Physician History of Present Illness: Pt seen and examined at bedside. She is awake and alert. She denies shortness of breath. - Current Medication List Current Medications: Active Medications Allopurinol (Zyloprim -) 300 mg PO DAILY [facility] Last Admin: 01/11/20 09:09 Dose: 300 mg Documented by: Amlodipine Besylate (Norvasc -) 10 mg PO DAILY [facility] Aspirin (Ecotrin -) 81 mg PO DAILY [facility] Last Admin: 01/11/20 09:08 Dose: 81 mg Documented by: Atorvastatin Calcium (Lipitor -) 40 mg PO HS [facility] Last Admin: 01/10/20 22:02 Dose: 40 mg Documented by: Docusate Sodium (Colace -) 100 mg PO BID [facility] Last Admin: 01/11/20 09:09 Dose: 100 mg Documented by: Gabapentin (Neurontin -) 300 mg PO TID [facility] Last Admin: 01/11/20 14:01 Dose: 300 mg Documented by: Sodium Chloride (Normal Saline -) 1,000 mls @ 30 mls/hr IV ASDIR [facility] Last Admin: 01/10/20 23:15 Dose: Not Given Documented by: Insulin Aspart (Novolog Vial Sliding Scale -) 1 vial SQ TIDAC [facility]; Protocol Last Admin: 01/11/20 17:49 Dose: 6 unit Documented by: Lisinopril (Prinivil) 10 mg PO DAILY [facility] Last Admin: 01/11/20 09:08 Dose: 10 mg Documented by: Metoprolol Succinate (Toprol Xl -) 50 mg PO DAILY [facility] Last Admin: 01/11/20 09:08 Dose: 50 mg Documented by: Oxycodone HCl (Roxicodone -) 5 mg PO Q4H PRN PRN Reason: PAIN LEVEL 4 - 6 Last Admin: 01/11/20 18:48 Dose: 5 mg Documented by: Pantoprazole Sodium (Protonix -) 40 mg PO DAILY [facility] Last Admin: 01/11/20 09:08 Dose: 40 mg Documented by: Polyethylene Glycol (Miralax (For Daily Use) -) 17 gm PO DAILY PRN PRN Reason: CONSTIPATION Last Admin: 01/09/20 09:44 Dose: 17 gm Documented by: Potassium Phos/Sodium Phos (Phos-Nak Packet -) 1 packet PO BID [facility] Last Admin: 01/11/20 09:08 Dose: 1 packet Documented by: Ani (Ani -) 1 tab PO BID [facility] Last Admin: 01/11/20 09:08 Dose: 1 tab Documented by: - Objective Vital Signs: Vital Signs Temperature 98.1 F 01/11/20 14:59 Pulse Rate 75 01/11/20 14:59 Respiratory Rate 20 01/11/20 14:59 Blood Pressure 150/75 01/11/20 14:59 O2 Sat by Pulse Oximetry (%) 97 01/11/20 09:00 Constitutional: Yes: Calm Eyes: Yes: Conjunctiva Clear HENT: Yes: Atraumatic Neck: Yes: Supple Cardiovascular: Yes: S1, S2 Respiratory: Yes: CTA Bilaterally Gastrointestinal: Yes: Soft Genitourinary: Yes: WNL Musculoskeletal: Yes: WNL Edema: No Integumentary: Yes: WNL Neurological: Yes: WNL Labs: CBC, BMP 01/11/20 07:17 01/11/20 07:17 INR, PTT INR 1.03 (0.83-1.09) 01/03/20 10:00 Problem List - Problems (1) Hypercalcemia Code(s): E83.52 - HYPERCALCEMIA (2) Multiple myeloma Code(s): C90.00 - MULTIPLE MYELOMA NOT HAVING ACHIEVED REMISSION (3) Spine fracture Code(s): WXH5605 - Assessment/Plan Current Medications Generic Name Dose Route Start Last Admin Trade Name Nick PRN Reason Stop Dose Admin Allopurinol 300 mg 01/08/20 10:00 01/11/20 09:09 Zyloprim - PO 300 mg DAILY [facility] Administration Amlodipine Besylate 10 mg 01/12/20 10:00 Norvasc - PO DAILY [facility] Aspirin 81 mg 01/04/20 10:00 01/11/20 09:08 Ecotrin - PO 81 mg DAILY [facility] Administration Atorvastatin Calcium 40 mg 01/03/20 22:00 01/10/20 22:02 Lipitor - PO 40 mg HS [facility] Administration Docusate Sodium 100 mg 01/07/20 22:00 01/11/20 09:09 Colace - PO 100 mg BID [facility] Administration Gabapentin 300 mg 01/06/20 14:00 01/11/20 14:01 Neurontin - PO 300 mg TID [facility] Administration Sodium Chloride 1,000 mls @ 30 mls/hr 01/07/20 23:00 01/10/20 23:15 Normal Saline - IV Not Given ASDIR [facility] Insulin Aspart 1 vial 01/03/20 16:30 01/11/20 17:49 Novolog Vial Sliding Scale - SQ 6 unit TIDAC [facility] Administration Protocol Lisinopril 10 mg 01/03/20 12:30 01/11/20 09:08 Prinivil PO 10 mg DAILY [facility] Administration Metoprolol Succinate 50 mg 01/03/20 12:30 01/11/20 09:08 Toprol Xl - PO 50 mg DAILY [facility] Administration Oxycodone HCl 5 mg 01/11/20 18:34 01/11/20 18:48 Roxicodone - PO 5 mg Q4H PRN Administration PAIN LEVEL 4 - 6 Pantoprazole Sodium 40 mg 01/09/20 10:00 01/11/20 09:08 Protonix - PO 40 mg DAILY [facility] Administration Polyethylene Glycol 17 gm 01/07/20 18:09 01/09/20 09:44 Miralax (For Daily Use) - PO 17 gm DAILY PRN Administration CONSTIPATION Potassium Phos/Sodium Phos 1 packet 01/04/20 13:45 01/11/20 09:08 Phos-Nak Packet - PO 1 packet BID [facility] Administration Senna 1 tab 01/07/20 22:00 01/11/20 09:08 Senna - PO 1 tab BID [facility] Administration Impression 1. hypercalcemia 2. multiple myelpma 3. htn 4. hld 5. dm 6. hypokalemia 7. compression fractures 8. CKD 9. hypernatremai Plan - calcium stable - replace potassium - d/c saline - sodium rising, encourage free water intake - monitor lytes - renal function stable - s/p zometa
[2020-01-11] MEDS ORDERED: PT OWN MED DRAWER 7, Y5N ONE (20:07)
--- NOTE | 2020-01-11 20:59 | CONSULT ---
Consult Consult Specialty:: Pain Management Reason for Consultation:: Back pain - History of Present Illness Chief Complaint: Back pain History of Present Illness: 69 yr old female with multiple Myeloma with mutli level vertebral compression Fx. pain / , non radiating to legs with no numbness and tingling. Evaluated by Spine Surgeon Dr. Escamilla . ? help with Vertebroplasty. She has difficulty in ding ADLs and Ambulation. Chart reviewed - History Source History Provided By: Patient Limitations to Obtaining History: No Limitations - Past Medical History Cardio/Vascular: Yes: HTN, Hyperlipdemia ...: No Endocrine: Yes: Diabetes Mellitus - Past Surgical History Past Surgical History: Yes: Cholecystectomy Additional Surgical History: Right humerus intramedullary ángel 06/10/19. Bone marrow biopsy 08/30/19 - Alcohol/Substance Use Hx Alcohol Use: No History of Substance Use: reports: None - Smoking History Smoking history: Never smoked Have you smoked in the past 12 months: No - Social History Usual Living Arrangement: With Spouse Home Medications - Allergies Allergies/Adverse Reactions: Allergies Allergy/AdvReac Type Severity Reaction Status Date / Time No Known Allergies Allergy Verified 01/03/20 10:49 - Home Medications Home Medications: Ambulatory Orders Amlodipine Besylate/Benazepril [Lotrel 5-10 mg Capsule] 1 cap PO DAILY 06/15/17 Atorvastatin Ca [Lipitor] 40 mg PO HS 06/15/17 Metoprolol Succinate [Toprol Xl] 50 mg PO DAILY 06/15/17 Sitagliptin Phos/Metformin HCl [Janumet 50-1,000 mg Tablet] 1 each PO BID 06/15/17 Aspirin Coated [Ecotrin -] 81 mg PO DAILY 07/02/17 Allopurinol 300 mg PO DAILY 01/05/20 Ergocalciferol (Vitamin D2) [Vitamin D2] 50,000 unit PO WEEKLY 01/05/20 Glimepiride [Amaryl -] 4 mg PO DAILY@0700 01/05/20 Hydralazine HCl 50 mg PO BID 01/05/20 Naproxen 375 mg PO BID 01/05/20 Review of Systems - Review of Systems Constitutional: reports: No Symptoms Eyes: reports: No Symptoms HENT: reports: No Symptoms Neck: reports: Pain on Movement Cardiovascular: reports: No Symptoms Respiratory: reports: No Symptoms Gastrointestinal: reports: No Symptoms Musculoskeletal: reports: Back Pain, Decreased ROM, Muscle Pain Neurological: reports: No Symptoms Pain Intensity: 8 Physical Exam Vital Signs: Vital Signs Temperature 98.2 F 01/11/20 18:00 Pulse Rate 72 01/11/20 18:00 Respiratory Rate 20 01/11/20 18:00 Blood Pressure 149/66 01/11/20 18:00 O2 Sat by Pulse Oximetry (%) 97 01/11/20 09:00 Constitutional: Yes: Well Nourished Eyes: Yes: WNL HENT: Yes: WNL Neck: Yes: WNL Musculoskeletal: Yes: Back Pain, Joint Stiffness, Other (Limited ROM . Pain on movement) Edema: No Neurological: Yes: WNL ...Motor Strength: WNL Psychiatric: Yes: WNL Labs: CBC, BMP 01/11/20 07:17 01/11/20 07:17 Imaging - Results MRI: Report Reviewed Assessment/Plan Discussed in detail and answered all her questions 1. continue current care 2. Patient with benefit with TLSO brace 3. Continue PT 4. Frequent change of posture 5. continue Oxycodone , Neurontin and Tylenol for pain 6. Oxycodone 5 mg PO q4 PRN . 7. Lidocaine patch at pain site 12 hr on / 12 hr off in back Thank you very much for allowing me to participate in her care . Dmitry Casanova MD [phone].
[2020-01-11] MEDS: ATORVASTATIN CA 40 MG TABLET (FP) PO SCH (21:04)
[2020-01-11] MEDS: LIDOCAINE PATCH REMOVAL MC SCH (21:21)
--- NOTE | 2020-01-11 23:37 | PN.HO ---
Progress Note (short form) - Note Progress Note: Patient seen and examined c/o difficulty ambulating c/o back pain Last Vital Signs Temp Pulse Resp BP Pulse Ox 98.7 F 86 18 156/80 94 L 01/06/20 19:32 01/06/20 19:32 01/06/20 19:32 01/06/20 19:32 01/06/20 10:00 Last Vital Signs Temp Pulse Resp BP Pulse Ox 98.6 F 74 20 141/64 95 01/08/20 13:33 01/08/20 13:33 01/08/20 13:33 01/08/20 13:33 01/08/20 10:00 Last Vital Signs Temp Pulse Resp BP Pulse Ox 97.9 F 99 H 20 161/82 96 01/09/20 22:00 01/09/20 22:00 01/09/20 22:00 01/09/20 22:00 01/09/20 21:00 Last Vital Signs Temp Pulse Resp BP Pulse Ox 98.1 F 71 20 167/83 95 01/12/20 06:20 01/12/20 06:20 01/12/20 06:20 01/12/20 06:20 01/11/20 21:00 Cor: RSR, No murmurs, No gallops Lungs: Clear to P&A Abd: Soft, Normal bowel sounds, No organomegaly Ext:No significant edema LAbd/Meds reviewed A/P Multiple myeloma with multiple pathologic vetebral compression fractures, most symptomatic at T4, T11 and L4 and L5 Pathologic compression fractures/ thecal sac compression T4/11, L4/5 on MRI done 12/29. Also degenerative central canal stenosis MRI C spine shows no e/o cord compression k/L ratio 6000s Pain controlled Will need RT /IR input about kyphoplasty Velcade/dex 01/09/20 Add revlimid after RT s/p zometa 01/02 NEeds f/u with Dr. Chester/ Dr. Lerma PAin control
[2020-01-12] MEDS: oxyCODONE HCL 5 MG TABLET PO PRN ×3 (02:05→12:58)
[2020-01-12] MEDS ORDERED: INSULIN (NOVOLOG) ASPART 100 UNITS/ML 10ML VIAL ONE (05:52)
[2020-01-12] MEDS: GABAPENTIN 300 MG CAPSULE PO SCH ×3 (06:13→21:22)
[2020-01-12] MEDS: INSULIN SLIDING SCALE (NOVOLOG) 1 VIAL SQ SCH ×3 (06:13→16:52)
[2020-01-12 07:46] LABS: ALBUMIN 2.9 g/dl (3.4-5.0); BILIRUBIN,TOTAL 0.8 mg/dL (0.2-1); BLOOD UREA NITROGEN 24.9 mg/dL (7-18); CALCIUM 9.2 mg/dL (8.5-10.1); CREATININE 1.2 mg/dL (0.55-1.3); MAGNESIUM 1.9 mg/dL (1.8-2.4); PHOSPHOROUS 2.2 mg/dL (2.5-4.9); TOT PROT 8.8 g/dl (6.4-8.2); URIC ACID 2.6 mg/dL (2.6-7.2)
[2020-01-12 07:49] LABS: BASO % 0.4 % (0-2.0); EOS % 0.9 % (0-4.5); HEMOGLOBIN 8.4 GM/dL (10.7-15.3); LYMPH % 25.2 % (8-40); MCH 28.3 pg (25.7-33.7); MCHC 32.2 g/dl (32.0-36.0); MEAN CELL VOLUME 88.1 fl (80-96); MONO % 7.2 % (3.8-10.2); NEUT % 66.3 % (42.8-82.8); PLATELET COUNT 350 K/MM3 (134-434); RBC 2.95 M/mm3 (3.60-5.2); RDW 16.2 % (11.6-15.6); WHITE BLOOD COUNT 11.6 K/mm3 (4.0-10.0)
[2020-01-12] MEDS: ALLOPURINOL 300 MG TABLET (FP) PO SCH (09:09)
[2020-01-12] MEDS: DOCUSATE SODIUM 100 MG CAPSULE (FP) PO SCH ×2 (09:09→21:22)
[2020-01-12] MEDS: LISINOPRIL 10 MG TABLET (FP) PO SCH (09:09)
[2020-01-12] MEDS: amLODIPine BESYLATE 10 MG TABLET (FP) PO SCH (09:09)
[2020-01-12] MEDS: SENNOSIDES 8.6MG TABLET (FP) PO SCH ×2 (09:09→21:22)
[2020-01-12] MEDS: NAPH,MB-DB/K PH,MBDB POWDER PACKET PO SCH ×2 (09:09→21:22)
[2020-01-12] MEDS: PANTOPRAZOLE 40 MG TABLET PO SCH (09:10)
[2020-01-12] MEDS: LIDOCAINE 5% TOPICAL PATCH TP SCH (09:10)
[2020-01-12] MEDS: ASPIRIN COATED 81 MG TABLET.EC PO SCH (09:10)
[2020-01-12 09:47] LABS: ANISOCYTOSIS 2+; MACROCYTOSIS 0; PLATELET ESTIMATE NORMAL
--- NOTE | 2020-01-12 11:38 | PN ---
Physical Exam: SUBJECTIVE: Patient seen and examined. Pt. endorses pain this morning and being upset about the prospect of being discharged home with pain. Pt. states she was seen by pain managejavan and discussed "bone cement." I discussed with Pt. that her options including going home with VNS, and PT. I discussed that her insurance would cover the cost of her going to and from RT. I discussed with her that because she walked over 150 ft. she is not a candidate for rehad at this time and because SNFs would not want to pay for RT transportation. Pt. nancy wledged understanding. OBJECTIVE: Vital Signs Period Temp Pulse Resp BP Sys/Kerr Pulse Ox Last 24 Hr 98.0 F-98.7 F 71-80 18-20 143-167/59-83 95-97 GENERAL: The patient is awake, alert, and fully oriented, in mild distress due to pain. HEAD: Normal with no signs of trauma. EYES:conjunctiva clear. ENT: Moist mucous membranes. LUNGS: Breath sounds equal, clear to auscultation bilaterally, no wheezes, no crackles, no accessory muscle use. HEART: Regular rate and rhythm, S1, S2 with systolic murmur ABDOMEN: Soft, nontender, nondistended, normoactive bowel sounds EXTREMITIES: 2+ dorsal pedal pulses, warm, well-perfused, no calf tenderness, no edema. NEUROLOGICAL: Normal speech, gait not observed. PSYCH: Normal mood, normal affect. SKIN: Warm, dry, normal turgor Laboratory Results - last 24 hr 01/10/20 01/11/20 01/11/20 05:40 11:40 15:58 WBC RBC Hgb Hct MCV MCH MCHC RDW Plt Count MPV Absolute Neuts (auto) Neutrophils % Neutrophils % (Manual) Band Neutrophils % Lymphocytes % Lymphocytes % (Manual) Monocytes % Monocytes % (Manual) Eosinophils % Eosinophils % (Manual) Basophils % Basophils % (Manual) Myelocytes % (Man) Promyelocytes % (Man) Blast Cells % (Manual) Nucleated RBC % Metamyelocytes Hypochromia Platelet Estimate Polychromasia Poikilocytosis Anisocytosis Microcytosis Macrocytosis Sodium Potassium Chloride Carbon Dioxide Anion Gap BUN Creatinine Est GFR (CKD-EPI)AfAm Est GFR (CKD-EPI)NonAf POC Glucometer 242 375 Random Glucose Uric Acid Calcium Phosphorus Magnesium Total Bilirubin AST ALT Alkaline Phosphatase LD Total Total Protein Albumin Blood Type B POSITIVE Antibody Screen Positive H Prewarmed Antibody Srcn Negative Antibody Identification Cold agg Crossmatch See Detail 01/11/20 01/12/20 01/12/20 21:11 06:07 06:30 WBC RBC Hgb Hct MCV MCH MCHC RDW Plt Count MPV Absolute Neuts (auto) Neutrophils % Neutrophils % (Manual) Band Neutrophils % Lymphocytes % Lymphocytes % (Manual) Monocytes % Monocytes % (Manual) Eosinophils % Eosinophils % (Manual) Basophils % Basophils % (Manual) Myelocytes % (Man) Promyelocytes % (Man) Blast Cells % (Manual) Nucleated RBC % Metamyelocytes Hypochromia Platelet Estimate Polychromasia Poikilocytosis Anisocytosis Microcytosis Macrocytosis Sodium 141 Potassium 4.0 Chloride 108 H Carbon Dioxide 22 Anion Gap 10 BUN 24.9 H Creatinine 1.2 Est GFR (CKD-EPI)AfAm 52.66 Est GFR (CKD-EPI)NonAf 45.43 POC Glucometer 269 194 Random Glucose 206 H Uric Acid 2.6 Calcium 9.2 Phosphorus 2.2 L Magnesium 1.9 Total Bilirubin 0.8 AST 20 ALT 45 Alkaline Phosphatase 102 LD Total 161 Total Protein 8.8 H Albumin 2.9 L Blood Type Antibody Screen Prewarmed Antibody Srcn Antibody Identification Crossmatch 01/12/20 01/12/20 06:30 11:07 WBC 11.6 H RBC 2.95 L Hgb 8.4 L Hct 26.0 L MCV 88.1 MCH 28.3 MCHC 32.2 RDW 16.2 H Plt Count 350 MPV 7.0 L Absolute Neuts (auto) 7.7 Neutrophils % 66.3 Neutrophils % (Manual) 74.0 Band Neutrophils % 0.0 Lymphocytes % 25.2 D Lymphocytes % (Manual) 19.0 Monocytes % 7.2 Monocytes % (Manual) 5 Eosinophils % 0.9 D Eosinophils % (Manual) 1.0 Basophils % 0.4 Basophils % (Manual) 0.0 Myelocytes % (Man) 1 Promyelocytes % (Man) 0 Blast Cells % (Manual) 0 Nucleated RBC % 2 H Metamyelocytes 0 Hypochromia 0 Platelet Estimate Normal Polychromasia 1+ Poikilocytosis 1+ Anisocytosis 2+ Microcytosis 2+ Macrocytosis 0 Sodium Potassium Chloride Carbon Dioxide Anion Gap BUN Creatinine Est GFR (CKD-EPI)AfAm Est GFR (CKD-EPI)NonAf POC Glucometer 260 Random Glucose Uric Acid Calcium Phosphorus Magnesium Total Bilirubin AST ALT Alkaline Phosphatase LD Total Total Protein Albumin Blood Type Antibody Screen Prewarmed Antibody Srcn Antibody Identification Crossmatch Active Medications Generic Name Dose Route Start Last Admin Trade Name Freq PRN Reason Stop Dose Admin Allopurinol 300 mg 01/08/20 10:00 01/12/20 09:09 Zyloprim - PO 300 mg DAILY [facility] Administration Amlodipine Besylate 10 mg 01/12/20 10:00 01/12/20 09:09 Norvasc - PO 10 mg DAILY [facility] Administration Aspirin 81 mg 01/04/20 10:00 01/12/20 09:10 Ecotrin - PO 81 mg DAILY [facility] Administration Atorvastatin Calcium 40 mg 01/03/20 22:00 01/11/20 21:04 Lipitor - PO 40 mg HS [facility] Administration Docusate Sodium 100 mg 01/07/20 22:00 01/12/20 09:09 Colace - PO 100 mg BID [facility] Administration Gabapentin 300 mg 01/06/20 14:00 01/12/20 06:13 Neurontin - PO 300 mg TID [facility] Administration Insulin Aspart 1 vial 01/03/20 16:30 01/12/20 06:13 Novolog Vial Sliding Scale - SQ 1 unit TIDAC [facility] Administration Protocol Lidocaine 1 patch 01/12/20 10:00 01/12/20 09:10 Lidoderm Patch - TP 1 patch DAILY [facility] Administration Lisinopril 10 mg 01/03/20 12:30 01/12/20 09:09 Prinivil PO 10 mg DAILY [facility] Administration Metoprolol Succinate 50 mg 01/03/20 12:30 01/12/20 09:09 Toprol Xl - PO 50 mg DAILY [facility] Administration Miscellaneous 1 each 01/11/20 22:00 01/11/20 21:21 Lidoderm Patch Removal MC Not Given DAILY@2200 [facility] Oxycodone HCl 5 mg 01/11/20 18:34 01/12/20 09:09 Roxicodone - PO 5 mg Q4H PRN Administration PAIN LEVEL 4 - 6 Pantoprazole Sodium 40 mg 01/09/20 10:00 01/12/20 09:10 Protonix - PO 40 mg DAILY [facility] Administration Polyethylene Glycol 17 gm 01/07/20 18:09 01/09/20 09:44 Miralax (For Daily Use) - PO 17 gm DAILY PRN Administration CONSTIPATION Potassium Phos/Sodium Phos 1 packet 01/04/20 13:45 01/12/20 09:09 Phos-Nak Packet - PO 1 packet BID [facility] Administration Senna 1 tab 01/07/20 22:00 01/12/20 09:09 Senna - PO 1 tab BID [facility] Administration ASSESSMENT/PLAN: Pt. is a 69 y.o. F w/ PMHx. of Multiple Myeloma (recently diagnosed, follows with Dr. Lerma) HTN, HLD and DM sent to ED by Dr. Lerma for midline back pain. Patient had an MRI done 2 days ago that showed multiple compression fractures at T11, L4-L5 without spinal cord impingement. The patient is unable to walk due to the pain. She states she has had urinary incontinence however this was due to the inability to go to the restroom due to pain rather than true incontinence. Acknowledges to 10/10 pain and it has been worsening recently. Dr. Lerma has planned to start her on systemic therapy previously. #Multiple Myeloma f/u reccomendations from Radiation Oncology, Per Pt. no definitive date has been set yet. Palliative RT therapy may improve ambulation and pain. C/w PT Nephrology consult appreciated for hypercalcemia, Pt. is s/p IVF, Zometa and Calcitonin, continue to monitor Calcium levels, Pt. may need senior care bisphosphonate therapy c/w Allopurinol, s/p Decadron will consider starting CyBorD chemotherapy (Cyclophosphamide, Bortezomib and Dexamethasone) as outpatient after RT. f/u outpatient for RT and kyphoplasty management c/w Lovenox for DVT PPx. while inpatient Not a candidate for Neurosurgery Visit type - Emergency Visit Emergency Visit: Yes ED Registration Date: 01/03/20 Care time: The patient presented to the Emergency Department on the above date and was hospitalized for further evaluation of their emergent condition. - New Patient This patient is new to me today: No - Critical Care Critical Care patient: No - Discharge Referral Referred to [facility] No ATTENDING PHYSICIAN STATEMENT I saw and evaluated the patient. I reviewed the resident's note and discussed the case with the resident. I agree with the resident's findings and plan as documented. SUBJECTIVE: OBJECTIVE: ASSESSMENT AND PLAN:
[2020-01-12] MEDS: ENOXAPARIN NA (PORCINE) 40 MG/0.4 ML DISP.SYRIN SQ SCH (12:27)
--- NOTE | 2020-01-12 14:05 | PN ---
Physical Exam: SUBJECTIVE: Patient seen and examined Patient was seen at bed side. Patient was sitting up in the chair and endorsed improvement of pain with the tylenol and oxycodone. Patient was explained the costs of transport to and from [facility] for radiation therapy. OBJECTIVE: Vital Signs Period Temp Pulse Resp BP Sys/Kerr Pulse Ox Last 24 Hr 98.0 F-98.7 F 71-80 18-20 143-167/59-83 95-97 GENERAL: The patient is awake, alert, and fully oriented, in no acute distress. HEAD: Normal with no signs of trauma. EYES: PERRL, extraocular movements intact, sclera anicteric, conjunctiva clear. No ptosis. ENT: Ears normal, nares patent, oropharynx clear without exudates, moist mucous membranes. NECK: Trachea midline, full range of motion, supple. LUNGS: Breath sounds equal, clear to auscultation bilaterally, no wheezes, no crackles, no accessory muscle use. HEART: Regular rate and rhythm, S1, S2 without murmur, rub or gallop. ABDOMEN: Soft, nontender, nondistended, normoactive bowel sounds, no guarding, no rebound, no hepatosplenomegaly, no masses. EXTREMITIES: 2+ pulses, warm, well-perfused, no edema. NEUROLOGICAL: Cranial nerves II through XII grossly intact. Normal speech, gait not observed. PSYCH: Normal mood, normal affect. SKIN: Warm, dry, normal turgor, no rashes or lesions noted Laboratory Results - last 24 hr 01/11/20 01/11/20 01/12/20 15:58 21:11 06:07 WBC RBC Hgb Hct MCV MCH MCHC RDW Plt Count MPV Absolute Neuts (auto) Neutrophils % Neutrophils % (Manual) Band Neutrophils % Lymphocytes % Lymphocytes % (Manual) Monocytes % Monocytes % (Manual) Eosinophils % Eosinophils % (Manual) Basophils % Basophils % (Manual) Myelocytes % (Man) Promyelocytes % (Man) Blast Cells % (Manual) Nucleated RBC % Metamyelocytes Hypochromia Platelet Estimate Polychromasia Poikilocytosis Anisocytosis Microcytosis Macrocytosis Sodium Potassium Chloride Carbon Dioxide Anion Gap BUN Creatinine Est GFR (CKD-EPI)AfAm Est GFR (CKD-EPI)NonAf POC Glucometer 375 269 194 Random Glucose Uric Acid Calcium Phosphorus Magnesium Total Bilirubin AST ALT Alkaline Phosphatase LD Total Total Protein Albumin 07/09/20 07/09/20 07/09/20 06:30 06:30 11:07 WBC 11.6 H RBC 2.95 L Hgb 8.4 L Hct 26.0 L MCV 88.1 MCH 28.3 MCHC 32.2 RDW 16.2 H Plt Count 350 MPV 7.0 L Absolute Neuts (auto) 7.7 Neutrophils % 66.3 Neutrophils % (Manual) 74.0 Band Neutrophils % 0.0 Lymphocytes % 25.2 D Lymphocytes % (Manual) 19.0 Monocytes % 7.2 Monocytes % (Manual) 5 Eosinophils % 0.9 D Eosinophils % (Manual) 1.0 Basophils % 0.4 Basophils % (Manual) 0.0 Myelocytes % (Man) 1 Promyelocytes % (Man) 0 Blast Cells % (Manual) 0 Nucleated RBC % 2 H Metamyelocytes 0 Hypochromia 0 Platelet Estimate Normal Polychromasia 1+ Poikilocytosis 1+ Anisocytosis 2+ Microcytosis 2+ Macrocytosis 0 Sodium 141 Potassium 4.0 Chloride 108 H Carbon Dioxide 22 Anion Gap 10 BUN 24.9 H Creatinine 1.2 Est GFR (CKD-EPI)AfAm 52.66 Est GFR (CKD-EPI)NonAf 45.43 POC Glucometer 260 Random Glucose 206 H Uric Acid 2.6 Calcium 9.2 Phosphorus 2.2 L Magnesium 1.9 Total Bilirubin 0.8 AST 20 ALT 45 Alkaline Phosphatase 102 LD Total 161 Total Protein 8.8 H Albumin 2.9 L Active Medications Generic Name Dose Route Start Last Admin Trade Name Freq PRN Reason Stop Dose Admin Acetaminophen 1,000 mg 01/12/20 13:16 Tylenol - PO Q8H PRN PAIN LEVEL 4 - 6 Allopurinol 300 mg 01/08/20 10:00 01/12/20 09:09 Zyloprim - PO 300 mg DAILY [facility] Administration Amlodipine Besylate 10 mg 01/12/20 10:00 01/12/20 09:09 Norvasc - PO 10 mg DAILY [facility] Administration Aspirin 81 mg 01/04/20 10:00 01/12/20 09:10 Ecotrin - PO 81 mg DAILY [facility] Administration Atorvastatin Calcium 40 mg 01/03/20 22:00 01/11/20 21:04 Lipitor - PO 40 mg HS [facility] Administration Docusate Sodium 100 mg 01/07/20 22:00 01/12/20 09:09 Colace - PO 100 mg BID [facility] Administration Enoxaparin Sodium 40 mg 01/12/20 12:00 01/12/20 12:27 Lovenox - SQ 40 mg DAILY [facility] Administration Gabapentin 300 mg 01/06/20 14:00 01/12/20 12:59 Neurontin - PO 300 mg TID [facility] Administration Insulin Aspart 1 vial 01/03/20 16:30 01/12/20 12:26 Novolog Vial Sliding Scale - SQ 4 unit TIDAC [facility] Administration Protocol Lidocaine 1 patch 01/12/20 10:00 01/12/20 09:10 Lidoderm Patch - TP 1 patch DAILY [facility] Administration Lisinopril 10 mg 01/03/20 12:30 01/12/20 09:09 Prinivil PO 10 mg DAILY [facility] Administration Metoprolol Succinate 50 mg 01/03/20 12:30 01/12/20 09:09 Toprol Xl - PO 50 mg DAILY [facility] Administration Miscellaneous 1 each 01/11/20 22:00 01/11/20 21:21 Lidoderm Patch Removal MC Not Given DAILY@2200 [facility] Oxycodone HCl 5 mg 01/11/20 18:34 01/12/20 12:58 Roxicodone - PO 5 mg Q4H PRN Administration PAIN LEVEL 4 - 6 Pantoprazole Sodium 40 mg 01/09/20 10:00 01/12/20 09:10 Protonix - PO 40 mg DAILY [facility] Administration Polyethylene Glycol 17 gm 01/07/20 18:09 01/09/20 09:44 Miralax (For Daily Use) - PO 17 gm DAILY PRN Administration CONSTIPATION Potassium Phos/Sodium Phos 1 packet 01/04/20 13:45 01/12/20 09:09 Phos-Nak Packet - PO 1 packet BID [facility] Administration Senna 1 tab 01/07/20 22:00 01/12/20 09:09 Senna - PO 1 tab BID [facility] Administration ASSESSMENT/PLAN: Celso is a 69F with a PMHx of HTN, HLD, DM 2, recently diagnosed multiple myeloma. The patient presented with radiating back pain that prevents her from ambulating to the bathroom. Patient was found to have compression fractures in T4,T11, L4 and L5 on imaging secondary to multiple myeloma osteolytic lesions. Neurosurgery found no involvement with the spinal column thus no surgical intervention necessary. Patient is not urinary or fecally incontinent. Patient denies numbness or tingling in LE. 1. Compression fracture of vertebra secondary to multiple myeloma - Patient responds well to oxycodone 5g and tylenol 1g - C- Spine has no significant results - Patient is staying inpatient and is receiving Rad-Onc across the street at [address] for 5 treatments -Patient was started on IV dexamethasone/ patient should also start Revlimid, Velcade as in-patient. Further treatment plan as per Oncology. 2. Hyperuricemia/hypercalcemia - nephrology follow up outpatient - Fluids stopped - calcium levels improved after bisphosphonate and calcitonin administration Hypercalcemia improved 3. HTN - improved on home meds -Norvasc, -MARTIN-I, -Metoprolol. 4. HLD - - continue Statin. 5. DM 2 - Novolog as per sliding scale. 6. DVT Px - Lovenox SQ. 7. Dispo - in-patient Chemotherapy and in-patient Radiation therapy. COVID PCR negative. ATTENDING PHYSICIAN STATEMENT I saw and evaluated the patient. I reviewed the resident's note and discussed the case with the resident. I agree with the resident's findings and plan as documented. SUBJECTIVE: OBJECTIVE: ASSESSMENT AND PLAN:
--- NOTE | 2020-01-12 16:11 | PN ---
Progress Note (short form) - Note Progress Note: Radiation Oncology Persistent back pain worse with any movement and ambulation. Uses lower back brace. No incontinence or paresthesia. Tolerating chemotherapy without adverse effects. Neurologically unchanged. A/P Multiple myeloma with multiple pathologic vertebral compression fractures/bony retropulsion/thecal sac impingement, most symptomatic at T11 and L1. No intervention planned by neurosurgery and unlikely to benefit from kyphoplasty at this time. Patient would like to consider TLSO brace. As pain control continues to be an issue, limiting ambulation and mobility, consider inpt RT. BAR of palliative RT discussed, pt agrees to proceed. Approved by hospital. Scheduled for CT simulation at office tomorrow and will begin RT to T11-L1 spine on Thursday x 5fx. Please premedicate with oxycodone before RT appts. Pain mgt, PT, neurosx f/u, chemotherapy per oncology Discussed care with Dr. Clal and sister Gracie.
[2020-01-12] MEDS: ACETAMINOPHEN 500 MG TABLET (FP) PO PRN (16:48)
--- NOTE | 2020-01-12 17:16 | PN ---
Progress Note, Physician History of Present Illness: Pt seen and examined at bedside. She is awake and alert. She is tolerating diet. - Current Medication List Current Medications: Active Medications Acetaminophen (Tylenol -) 1,000 mg PO Q8H PRN PRN Reason: PAIN LEVEL 4 - 6 Last Admin: 01/12/20 16:48 Dose: 1,000 mg Documented by: Allopurinol (Zyloprim -) 300 mg PO DAILY [facility] Last Admin: 01/12/20 09:09 Dose: 300 mg Documented by: Amlodipine Besylate (Norvasc -) 10 mg PO DAILY [facility] Last Admin: 01/12/20 09:09 Dose: 10 mg Documented by: Aspirin (Ecotrin -) 81 mg PO DAILY [facility] Last Admin: 01/12/20 09:10 Dose: 81 mg Documented by: Atorvastatin Calcium (Lipitor -) 40 mg PO HS [facility] Last Admin: 01/11/20 21:04 Dose: 40 mg Documented by: Docusate Sodium (Colace -) 100 mg PO BID [facility] Last Admin: 01/12/20 09:09 Dose: 100 mg Documented by: Enoxaparin Sodium (Lovenox -) 40 mg SQ DAILY [facility] Last Admin: 01/12/20 12:27 Dose: 40 mg Documented by: Gabapentin (Neurontin -) 300 mg PO TID [facility] Last Admin: 01/12/20 12:59 Dose: 300 mg Documented by: Insulin Aspart (Novolog Vial Sliding Scale -) 1 vial SQ TIDAC [facility]; Protocol Last Admin: 01/12/20 16:52 Dose: 4 unit Documented by: Lidocaine (Lidoderm Patch -) 1 patch TP DAILY [facility] Last Admin: 01/12/20 09:10 Dose: 1 patch Documented by: Lisinopril (Prinivil) 10 mg PO DAILY [facility] Last Admin: 01/12/20 09:09 Dose: 10 mg Documented by: Metoprolol Succinate (Toprol Xl -) 50 mg PO DAILY [facility] Last Admin: 01/12/20 09:09 Dose: 50 mg Documented by: Miscellaneous (Lidoderm Patch Removal) 1 each MC DAILY@2200 [facility] Last Admin: 01/11/20 21:21 Dose: Not Given Documented by: Oxycodone HCl (Roxicodone -) 5 mg PO Q4H PRN PRN Reason: PAIN LEVEL 4 - 6 Last Admin: 01/12/20 12:58 Dose: 5 mg Documented by: Pantoprazole Sodium (Protonix -) 40 mg PO DAILY [facility] Last Admin: 01/12/20 09:10 Dose: 40 mg Documented by: Polyethylene Glycol (Miralax (For Daily Use) -) 17 gm PO DAILY PRN PRN Reason: CONSTIPATION Last Admin: 01/09/20 09:44 Dose: 17 gm Documented by: Potassium Phos/Sodium Phos (Phos-Nak Packet -) 1 packet PO BID [facility] Last Admin: 01/12/20 09:09 Dose: 1 packet Documented by: Senna (Senna -) 1 tab PO BID [facility] Last Admin: 01/12/20 09:09 Dose: 1 tab Documented by: Valacyclovir HCl (Valtrex -) 500 mg PO DAILY [facility] - Objective Vital Signs: Vital Signs Temperature 98 F 01/12/20 14:13 Pulse Rate 77 01/12/20 14:13 Respiratory Rate 20 01/12/20 14:13 Blood Pressure 153/76 01/12/20 14:13 O2 Sat by Pulse Oximetry (%) 97 01/12/20 09:00 Constitutional: Yes: Calm Eyes: Yes: Conjunctiva Clear HENT: Yes: Atraumatic Cardiovascular: Yes: S1, S2 Gastrointestinal: Yes: WNL Genitourinary: Yes: WNL Extremities: Yes: WNL Edema: No Neurological: Yes: Oriented Psychiatric: Yes: Oriented Labs: CBC, BMP 01/12/20 06:30 01/12/20 06:30 INR, PTT INR 1.03 (0.83-1.09) 01/03/20 10:00 Problem List - Problems (1) Hypercalcemia Code(s): E83.52 - HYPERCALCEMIA (2) Multiple myeloma Code(s): C90.00 - MULTIPLE MYELOMA NOT HAVING ACHIEVED REMISSION (3) Spine fracture Code(s): SXS5787 - Assessment/Plan Current Medications Generic Name Dose Route Start Last Admin Trade Name Freq PRN Reason Stop Dose Admin Acetaminophen 1,000 mg 01/12/20 13:16 01/12/20 16:48 Tylenol - PO 1,000 mg Q8H PRN Administration PAIN LEVEL 4 - 6 Allopurinol 300 mg 01/08/20 10:00 01/12/20 09:09 Zyloprim - PO 300 mg DAILY [facility] Administration Amlodipine Besylate 10 mg 01/12/20 10:00 01/12/20 09:09 Norvasc - PO 10 mg DAILY [facility] Administration Aspirin 81 mg 01/04/20 10:00 01/12/20 09:10 Ecotrin - PO 81 mg DAILY [facility] Administration Atorvastatin Calcium 40 mg 01/03/20 22:00 01/11/20 21:04 Lipitor - PO 40 mg HS [facility] Administration Docusate Sodium 100 mg 01/07/20 22:00 01/12/20 09:09 Colace - PO 100 mg BID [facility] Administration Enoxaparin Sodium 40 mg 01/12/20 12:00 01/12/20 12:27 Lovenox - SQ 40 mg DAILY [facility] Administration Gabapentin 300 mg 01/06/20 14:00 01/12/20 12:59 Neurontin - PO 300 mg TID [facility] Administration Insulin Aspart 1 vial 01/03/20 16:30 01/12/20 16:52 Novolog Vial Sliding Scale - SQ 4 unit TIDAC [facility] Administration Protocol Lidocaine 1 patch 01/12/20 10:00 01/12/20 09:10 Lidoderm Patch - TP 1 patch DAILY [facility] Administration Lisinopril 10 mg 01/03/20 12:30 01/12/20 09:09 Prinivil PO 10 mg DAILY [facility] Administration Metoprolol Succinate 50 mg 01/03/20 12:30 01/12/20 09:09 Toprol Xl - PO 50 mg DAILY [facility] Administration Miscellaneous 1 each 01/11/20 22:00 01/11/20 21:21 Lidoderm Patch Removal MC Not Given DAILY@2200 [facility] Oxycodone HCl 5 mg 01/11/20 18:34 01/12/20 12:58 Roxicodone - PO 5 mg Q4H PRN Administration PAIN LEVEL 4 - 6 Pantoprazole Sodium 40 mg 01/09/20 10:00 01/12/20 09:10 Protonix - PO 40 mg DAILY [facility] Administration Polyethylene Glycol 17 gm 01/07/20 18:09 01/09/20 09:44 Miralax (For Daily Use) - PO 17 gm DAILY PRN Administration CONSTIPATION Potassium Phos/Sodium Phos 1 packet 01/04/20 13:45 01/12/20 09:09 Phos-Nak Packet - PO 1 packet BID [facility] Administration Senna 1 tab 01/07/20 22:00 01/12/20 09:09 Senna - PO 1 tab BID [facility] Administration Valacyclovir HCl 500 mg 01/13/20 10:00 Valtrex - PO DAILY [facility] Impression 1. hypercalcemia 2. multiple myelpma 3. htn 4. hld 5. dm 6. hypokalemia 7. compression fractures 8. CKD 9. hypernatremai Plan - sodium improved - monitor calcium - monitor lytes - business librarian rising, repeat labs in am - pt tolerating po intake - s/p zometa
--- NOTE | 2020-01-12 18:01 | PN ---
Teaching Attending Note Name of Resident: Christian Garcia ATTENDING PHYSICIAN STATEMENT I saw and evaluated the patient. I reviewed the resident's note and discussed the case with the resident. I agree with the resident's findings and plan as documented. SUBJECTIVE: Some LBP, non-radiating. Off dexamethasone. Plan for 5 fx's RTX to start on 01-16-2020, simulation on 01-13-2020. Tolerating po. OBJECTIVE: Non-focal neuro findings ASSESSMENT AND PLAN: 69 F w/ PMHx. of Multiple Myeloma Multiple compression fractures at T11, L4-L5 without spinal cord impingement. Was having LBP when ambulating. Would likely benefit from RTX, plan to tx T11-L1. Outpt systemic myeloma tx.
[2020-01-12] MEDS: ATORVASTATIN CA 40 MG TABLET (FP) PO SCH (21:22)
[2020-01-12] MEDS: LIDOCAINE PATCH REMOVAL MC SCH (21:22)
[2020-01-13] MEDS ORDERED: INSULIN (NOVOLOG) ASPART 100 UNITS/ML 10ML VIAL ONE ×2 (05:07→11:50)
[2020-01-13] MEDS: GABAPENTIN 300 MG CAPSULE PO SCH ×3 (05:17→23:03)
[2020-01-13] MEDS: INSULIN SLIDING SCALE (NOVOLOG) 1 VIAL SQ SCH ×3 (06:12→17:37)
[2020-01-13 07:41] LABS: BASO % 0.6 % (0-2.0); EOS % 1.4 % (0-4.5); HEMATOCRIT 22.8 % (32.4-45.2); HEMOGLOBIN 7.6 GM/dL (10.7-15.3); MCH 28.7 pg (25.7-33.7); MCHC 33.2 g/dl (32.0-36.0); MEAN CELL VOLUME 86.6 fl (80-96); MEAN PLT VOLUME 6.9 fl (7.5-11.1); MONO % 6.7 % (3.8-10.2); NEUT % 65.3 % (42.8-82.8); PLATELET COUNT 308 K/MM3 (134-434); RBC 2.64 M/mm3 (3.60-5.2); RDW 15.9 % (11.6-15.6); WHITE BLOOD COUNT 8.6 K/mm3 (4.0-10.0)
[2020-01-13 08:07] LABS: ALBUMIN 2.6 g/dl (3.4-5.0); BILIRUBIN,TOTAL 0.4 mg/dL (0.2-1); BLOOD UREA NITROGEN 30.6 mg/dL (7-18); CALCIUM 8.9 mg/dL (8.5-10.1); CREATININE 1.2 mg/dL (0.55-1.3); MAGNESIUM 1.8 mg/dL (1.8-2.4); PHOSPHOROUS 3.4 mg/dL (2.5-4.9); POTASSIUM 3.7 mmol/L (3.5-5.1); TOT PROT 7.9 g/dl (6.4-8.2)
[2020-01-13] MEDS ORDERED: PT OWN MED DRAWER 7, Y5N ONE (08:28)
[2020-01-13 09:07] LABS: ANISOCYTOSIS 0; MACROCYTOSIS 0; PLATELET ESTIMATE NORMAL
[2020-01-13] MEDS: oxyCODONE HCL 5 MG TABLET PO PRN ×3 (10:02→23:03)
[2020-01-13] MEDS: ENOXAPARIN NA (PORCINE) 40 MG/0.4 ML DISP.SYRIN SQ SCH (10:03)
[2020-01-13] MEDS: NAPH,MB-DB/K PH,MBDB POWDER PACKET PO SCH ×2 (10:03→23:03)
[2020-01-13] MEDS: LIDOCAINE 5% TOPICAL PATCH TP SCH (10:03)
[2020-01-13] MEDS: ALLOPURINOL 300 MG TABLET (FP) PO SCH (10:04)
[2020-01-13] MEDS: valACYclovir HCL 500 MG TABLET (FP) PO SCH (10:04)
[2020-01-13] MEDS: PANTOPRAZOLE 40 MG TABLET PO SCH (10:04)
[2020-01-13] MEDS: SENNOSIDES 8.6MG TABLET (FP) PO SCH ×2 (10:04→23:04)
[2020-01-13] MEDS: amLODIPine BESYLATE 10 MG TABLET (FP) PO SCH (10:06)
[2020-01-13] MEDS: LISINOPRIL 10 MG TABLET (FP) PO SCH (10:07)
[2020-01-13] MEDS: ASPIRIN COATED 81 MG TABLET.EC PO SCH (10:07)
[2020-01-13] MEDS: DOCUSATE SODIUM 100 MG CAPSULE (FP) PO SCH ×2 (10:07→23:03)
--- NOTE | 2020-01-13 14:36 | PN ---
Progress Note, Physician History of Present Illness: Pt seen and examined at bedside. She is awake and alert. She denies edema or shortness of breath. - Current Medication List Current Medications: Active Medications Acetaminophen (Tylenol -) 1,000 mg PO Q8H PRN PRN Reason: PAIN LEVEL 4 - 6 Last Admin: 01/12/20 16:48 Dose: 1,000 mg Documented by: Allopurinol (Zyloprim -) 300 mg PO DAILY [facility] Last Admin: 01/13/20 10:04 Dose: 300 mg Documented by: Amlodipine Besylate (Norvasc -) 10 mg PO DAILY [facility] Last Admin: 01/13/20 10:06 Dose: 10 mg Documented by: Aspirin (Ecotrin -) 81 mg PO DAILY [facility] Last Admin: 01/13/20 10:07 Dose: 81 mg Documented by: Atorvastatin Calcium (Lipitor -) 40 mg PO HS [facility] Last Admin: 01/12/20 21:22 Dose: 40 mg Documented by: Docusate Sodium (Colace -) 100 mg PO BID [facility] Last Admin: 01/13/20 10:07 Dose: 100 mg Documented by: Enoxaparin Sodium (Lovenox -) 40 mg SQ DAILY [facility] Last Admin: 01/13/20 10:03 Dose: 40 mg Documented by: Gabapentin (Neurontin -) 300 mg PO TID [facility] Last Admin: 01/13/20 05:17 Dose: 300 mg Documented by: Insulin Aspart (Novolog Vial Sliding Scale -) 1 vial SQ TIDAC [facility]; Protocol Last Admin: 01/13/20 11:54 Dose: 3 unit Documented by: Lidocaine (Lidoderm Patch -) 1 patch TP DAILY [facility] Last Admin: 01/13/20 10:03 Dose: 1 patch Documented by: Lisinopril (Prinivil) 10 mg PO DAILY [facility] Last Admin: 01/13/20 10:07 Dose: 10 mg Documented by: Metoprolol Succinate (Toprol Xl -) 50 mg PO DAILY [facility] Last Admin: 01/13/20 10:06 Dose: 50 mg Documented by: Miscellaneous (Lidoderm Patch Removal) 1 each MC DAILY@2200 [facility] Last Admin: 01/12/20 21:22 Dose: 1 each Documented by: Oxycodone HCl (Roxicodone -) 5 mg PO Q4H PRN PRN Reason: PAIN LEVEL 4 - 6 Last Admin: 01/13/20 10:02 Dose: 5 mg Documented by: Pantoprazole Sodium (Protonix -) 40 mg PO DAILY [facility] Last Admin: 01/13/20 10:04 Dose: 40 mg Documented by: Polyethylene Glycol (Miralax (For Daily Use) -) 17 gm PO DAILY PRN PRN Reason: CONSTIPATION Last Admin: 01/09/20 09:44 Dose: 17 gm Documented by: Potassium Phos/Sodium Phos (Phos-Nak Packet -) 1 packet PO BID [facility] Last Admin: 01/13/20 10:03 Dose: 1 packet Documented by: Senna (Senna -) 1 tab PO BID [facility] Last Admin: 01/13/20 10:04 Dose: 1 tab Documented by: Valacyclovir HCl (Valtrex -) 500 mg PO DAILY [facility] Last Admin: 01/13/20 10:04 Dose: 500 mg Documented by: - Objective Vital Signs: Vital Signs Temperature 98.1 F 01/13/20 13:15 Pulse Rate 74 01/13/20 13:15 Respiratory Rate 20 01/13/20 13:15 Blood Pressure 145/66 01/13/20 13:15 O2 Sat by Pulse Oximetry (%) 96 01/12/20 21:00 Constitutional: Yes: Calm Eyes: Yes: Conjunctiva Clear HENT: Yes: Atraumatic Neck: Yes: Supple Cardiovascular: Yes: S1, S2 Respiratory: Yes: CTA Bilaterally Gastrointestinal: Yes: Soft Genitourinary: Yes: WNL Edema: No Labs: CBC, BMP 01/13/20 07:00 01/13/20 07:00 INR, PTT INR 1.03 (0.83-1.09) 01/03/20 10:00 Problem List - Problems (1) Hypercalcemia Code(s): E83.52 - HYPERCALCEMIA (2) Multiple myeloma Code(s): C90.00 - MULTIPLE MYELOMA NOT HAVING ACHIEVED REMISSION (3) Spine fracture Code(s): TKE5801 - Assessment/Plan Current Medications Generic Name Dose Route Start Last Admin Trade Name Freq PRN Reason Stop Dose Admin Acetaminophen 1,000 mg 01/12/20 13:16 01/12/20 16:48 Tylenol - PO 1,000 mg Q8H PRN Administration PAIN LEVEL 4 - 6 Allopurinol 300 mg 01/08/20 10:00 01/13/20 10:04 Zyloprim - PO 300 mg DAILY [facility] Administration Amlodipine Besylate 10 mg 01/12/20 10:00 01/13/20 10:06 Norvasc - PO 10 mg DAILY [facility] Administration Aspirin 81 mg 01/04/20 10:00 01/13/20 10:07 Ecotrin - PO 81 mg DAILY [facility] Administration Atorvastatin Calcium 40 mg 01/03/20 22:00 01/12/20 21:22 Lipitor - PO 40 mg HS [facility] Administration Docusate Sodium 100 mg 01/07/20 22:00 01/13/20 10:07 Colace - PO 100 mg BID [facility] Administration Enoxaparin Sodium 40 mg 01/12/20 12:00 01/13/20 10:03 Lovenox - SQ 40 mg DAILY [facility] Administration Gabapentin 300 mg 01/06/20 14:00 01/13/20 05:17 Neurontin - PO 300 mg TID [facility] Administration Insulin Aspart 1 vial 01/03/20 16:30 01/13/20 11:54 Novolog Vial Sliding Scale - SQ 3 unit TIDAC [facility] Administration Protocol Lidocaine 1 patch 01/12/20 10:00 01/13/20 10:03 Lidoderm Patch - TP 1 patch DAILY [facility] Administration Lisinopril 10 mg 01/03/20 12:30 01/13/20 10:07 Prinivil PO 10 mg DAILY [facility] Administration Metoprolol Succinate 50 mg 01/03/20 12:30 01/13/20 10:06 Toprol Xl - PO 50 mg DAILY [facility] Administration Miscellaneous 1 each 01/11/20 22:00 01/12/20 21:22 Lidoderm Patch Removal MC 1 each DAILY@2200 [facility] Administration Oxycodone HCl 5 mg 01/11/20 18:34 01/13/20 10:02 Roxicodone - PO 5 mg Q4H PRN Administration PAIN LEVEL 4 - 6 Pantoprazole Sodium 40 mg 01/09/20 10:00 01/13/20 10:04 Protonix - PO 40 mg DAILY [facility] Administration Polyethylene Glycol 17 gm 01/07/20 18:09 01/09/20 09:44 Miralax (For Daily Use) - PO 17 gm DAILY PRN Administration CONSTIPATION Potassium Phos/Sodium Phos 1 packet 01/04/20 13:45 01/13/20 10:03 Phos-Nak Packet - PO 1 packet BID [facility] Administration Senna 1 tab 01/07/20 22:00 01/13/20 10:04 Senna - PO 1 tab BID [facility] Administration Valacyclovir HCl 500 mg 01/13/20 10:00 01/13/20 10:04 Valtrex - PO 500 mg DAILY [facility] Administration Laboratory Tests 01/13/20 07:00 BUN 30.6 H Creatinine 1.2 Impression 1. hypercalcemia 2. multiple myelpma 3. htn 4. hld 5. dm 6. hypokalemia 7. compression fractures 8. CKD 9. hypernatremai Plan - lytes are stable - calcium stable - will need to follow lytes as outpt - bun is mildly elevated, cont to monitor - pt tolerating po intake - s/p zometa
--- NOTE | 2020-01-13 15:18 | PN ---
Physical Exam: SUBJECTIVE: Patient seen and examined OBJECTIVE: Vital Signs Period Temp Pulse Resp BP Sys/Kerr Pulse Ox Last 24 Hr 97.7 F-98.3 F 64-81 18-20 145-165/66-78 96 GENERAL: The patient is awake, alert, and fully oriented, in no acute distress. HEAD: Normal with no signs of trauma. EYES: PERRL, extraocular movements intact, sclera anicteric, conjunctiva clear. No ptosis. ENT: Ears normal, nares patent, oropharynx clear without exudates, moist mucous membranes. NECK: Trachea midline, full range of motion, supple. LUNGS: Breath sounds equal, clear to auscultation bilaterally, no wheezes, no crackles, no accessory muscle use. HEART: Regular rate and rhythm, S1, S2 without murmur, rub or gallop. ABDOMEN: Soft, nontender, nondistended, normoactive bowel sounds, no guarding, no rebound, no hepatosplenomegaly, no masses. EXTREMITIES: 2+ pulses, warm, well-perfused, no edema. NEUROLOGICAL: Cranial nerves II through XII grossly intact. Normal speech, gait not observed. PSYCH: Normal mood, normal affect. SKIN: Warm, dry, normal turgor, no rashes or lesions noted Laboratory Results - last 24 hr 01/12/20 01/12/20 01/13/20 16:51 21:20 05:20 WBC RBC Hgb Hct MCV MCH MCHC RDW Plt Count MPV Absolute Neuts (auto) Neutrophils % Neutrophils % (Manual) Band Neutrophils % Lymphocytes % Lymphocytes % (Manual) Monocytes % Monocytes % (Manual) Eosinophils % Eosinophils % (Manual) Basophils % Basophils % (Manual) Myelocytes % (Man) Promyelocytes % (Man) Blast Cells % (Manual) Nucleated RBC % Metamyelocytes Hypochromia Platelet Estimate Polychromasia Poikilocytosis Anisocytosis Microcytosis Macrocytosis Sodium Potassium Chloride Carbon Dioxide Anion Gap BUN Creatinine Est GFR (CKD-EPI)AfAm Est GFR (CKD-EPI)NonAf POC Glucometer 262 256 212 Random Glucose Calcium Phosphorus Magnesium Total Bilirubin AST ALT Alkaline Phosphatase Total Protein Albumin Blood Type Crossmatch 01/13/20 01/13/20 01/13/20 07:00 07:00 11:47 WBC 8.6 RBC 2.64 L Hgb 7.6 L Hct 22.8 L MCV 86.6 MCH 28.7 MCHC 33.2 RDW 15.9 H Plt Count 308 MPV 6.9 L Absolute Neuts (auto) 5.6 Neutrophils % 65.3 Neutrophils % (Manual) 63.3 Band Neutrophils % 0.0 Lymphocytes % 26.0 Lymphocytes % (Manual) 27.6 D Monocytes % 6.7 Monocytes % (Manual) 4 Eosinophils % 1.4 Eosinophils % (Manual) 0.0 D Basophils % 0.6 Basophils % (Manual) 0.0 Myelocytes % (Man) 2 D Promyelocytes % (Man) 0 Blast Cells % (Manual) 0 Nucleated RBC % 1 H Metamyelocytes 1 D Hypochromia 0 Platelet Estimate Normal Polychromasia 0 Poikilocytosis 0 Anisocytosis 0 Microcytosis 0 Macrocytosis 0 Sodium 138 Potassium 3.7 Chloride 107 Carbon Dioxide 23 Anion Gap 8 BUN 30.6 H Creatinine 1.2 Est GFR (CKD-EPI)AfAm 52.66 Est GFR (CKD-EPI)NonAf 45.43 POC Glucometer 233 Random Glucose 221 H Calcium 8.9 Phosphorus 3.4 Magnesium 1.8 Total Bilirubin 0.4 AST 12 L ALT 31 Alkaline Phosphatase 95 Total Protein 7.9 Albumin 2.6 L Blood Type Crossmatch 01/13/20 13:00 WBC RBC Hgb Hct MCV MCH MCHC RDW Plt Count MPV Absolute Neuts (auto) Neutrophils % Neutrophils % (Manual) Band Neutrophils % Lymphocytes % Lymphocytes % (Manual) Monocytes % Monocytes % (Manual) Eosinophils % Eosinophils % (Manual) Basophils % Basophils % (Manual) Myelocytes % (Man) Promyelocytes % (Man) Blast Cells % (Manual) Nucleated RBC % Metamyelocytes Hypochromia Platelet Estimate Polychromasia Poikilocytosis Anisocytosis Microcytosis Macrocytosis Sodium Potassium Chloride Carbon Dioxide Anion Gap BUN Creatinine Est GFR (CKD-EPI)AfAm Est GFR (CKD-EPI)NonAf POC Glucometer Random Glucose Calcium Phosphorus Magnesium Total Bilirubin AST ALT Alkaline Phosphatase Total Protein Albumin Blood Type B POSITIVE Crossmatch See Detail Active Medications Generic Name Dose Route Start Last Admin Trade Name Freq PRN Reason Stop Dose Admin Acetaminophen 1,000 mg 01/12/20 13:16 01/12/20 16:48 Tylenol - PO 1,000 mg Q8H PRN Administration PAIN LEVEL 4 - 6 Allopurinol 300 mg 01/08/20 10:00 01/13/20 10:04 Zyloprim - PO 300 mg DAILY OTILIA Administration Amlodipine Besylate 10 mg 01/12/20 10:00 01/13/20 10:06 Norvasc - PO 10 mg DAILY OTILIA Administration Aspirin 81 mg 01/04/20 10:00 01/13/20 10:07 Ecotrin - PO 81 mg DAILY OTILIA Administration Atorvastatin Calcium 40 mg 01/03/20 22:00 01/12/20 21:22 Lipitor - PO 40 mg HS OTILIA Administration Docusate Sodium 100 mg 01/07/20 22:00 01/13/20 10:07 Colace - PO 100 mg BID OTILIA Administration Enoxaparin Sodium 40 mg 01/12/20 12:00 01/13/20 10:03 Lovenox - SQ 40 mg DAILY OTILIA Administration Gabapentin 300 mg 01/06/20 14:00 01/13/20 05:17 Neurontin - PO 300 mg TID OTILIA Administration Insulin Aspart 1 vial 01/03/20 16:30 01/13/20 11:54 Novolog Vial Sliding Scale - SQ 3 unit TIDAC OTILIA Administration Protocol Lidocaine 1 patch 01/12/20 10:00 01/13/20 10:03 Lidoderm Patch - TP 1 patch DAILY OTILIA Administration Lisinopril 10 mg 01/03/20 12:30 01/13/20 10:07 Prinivil PO 10 mg DAILY OTILIA Administration Metoprolol Succinate 50 mg 01/03/20 12:30 01/13/20 10:06 Toprol Xl - PO 50 mg DAILY OTILIA Administration Miscellaneous 1 each 01/11/20 22:00 01/12/20 21:22 Lidoderm Patch Removal MC 1 each DAILY@2200 OTILIA Administration Oxycodone HCl 5 mg 01/11/20 18:34 01/13/20 10:02 Roxicodone - PO 5 mg Q4H PRN Administration PAIN LEVEL 4 - 6 Pantoprazole Sodium 40 mg 01/09/20 10:00 01/13/20 10:04 Protonix - PO 40 mg DAILY OTILIA Administration Polyethylene Glycol 17 gm 01/07/20 18:09 01/09/20 09:44 Miralax (For Daily Use) - PO 17 gm DAILY PRN Administration CONSTIPATION Potassium Phos/Sodium Phos 1 packet 01/04/20 13:45 01/13/20 10:03 Phos-Nak Packet - PO 1 packet BID OTILIA Administration Senna 1 tab 01/07/20 22:00 01/13/20 10:04 Senna - PO 1 tab BID OTILIA Administration Valacyclovir HCl 500 mg 01/13/20 10:00 01/13/20 10:04 Valtrex - PO 500 mg DAILY OTILIA Administration ASSESSMENT/PLAN: ATTENDING PHYSICIAN STATEMENT I saw and evaluated the patient. I reviewed the resident's note and discussed the case with the resident. I agree with the resident's findings and plan as documented. SUBJECTIVE: OBJECTIVE: ASSESSMENT AND PLAN:
--- NOTE | 2020-01-13 18:28 | PN ---
Teaching Attending Note Name of Resident: Viktor Escobar ATTENDING PHYSICIAN STATEMENT I saw and evaluated the patient. I reviewed the resident's note and discussed the case with the resident. I agree with the resident's findings and plan as documented. SUBJECTIVE: Seen and examined at bedside. After discussions with administration and family patient will get outpatient radiation therapy. Patient received 1 unit of blood today due to declining hemoglobin. Plan to discharge to home tomorrow morning with son. OBJECTIVE: Last Vital Signs Temp Pulse Resp BP Pulse Ox 98.1 F 74 20 145/66 96 01/13/20 13:15 01/13/20 13:15 01/13/20 13:15 01/13/20 13:15 01/12/20 21:00 PE: per resident note Labs/Imaging: reviewed ASSESSMENT AND PLAN: 69 year old male with history of HTN, HLD, DM 2, recently diagnosed MM (follows with Dr. Lerma), presented with back pain, limiting mobility and ability to reach bathroom in time. She denies LE weakness or incontinence. She was found to have multiple spinal vertebral pathologic fractures. MRI T/L Spine - multiple compression fractures at T11, L4-L5 without spinal cord impingement. L4-5 degenerative spondylolisthesis with stenosis #Multilevel T/L Spine pathologic fractures secondary to MM -outpatient radiation therapy -No evidence of spinal cord compression. -As per Neurosurgery - No surgical intervention recommended due to extensive disease. -Started on IV Dexa. As per Dr. Call, patient should also start Revlimid, Velcade as in-patient. Further treatment plan as per Oncology. -Analgesia with trial of oxycodone appears insufficient. Started standing tylenol - Pain Management consulted, awaiting eval. Neurosurgery to consider TLSO # MM with Hypercalcemia and Hyperuricemia Seen by Nephrology for Hypercalcemia - IV hydration stopped. s/p Bisphosphonate/Calcitonin. Hypercalcemia improved. Allopurinol started for elevated Uric Acid. Anemia secondary to MM - H/H 7.0/21.5 - mild drop, will monitor and transfuse PRN. Hematology/Oncology to further guide further management. # HTN - initially uncontrolled due to pain. Now improved on home meds Norvasc, MARTIN-I, and Metoprolol. # HLD - continue Statin. # DM 2 - Novolog as per sliding scale. # Hypokalemia/Hypophosphatemia/Hypomagnesemia - repleted. # Hypomagnesemia - repleted DVT Px - Lovenox SQ. Dispo - depending on Oncology plan for Rx. Dr. Call wants to arrange in- patient Chemotherapy and in-patient Radiation therapy. COVID PCR negative. Problem List - Problems (1) Spine fracture Code(s): [id number] -
[2020-01-13] MEDS: ATORVASTATIN CA 40 MG TABLET (FP) PO SCH (23:03)
[2020-01-13] MEDS: LIDOCAINE PATCH REMOVAL MC SCH (23:03)
[2020-01-14] MEDS: oxyCODONE HCL 5 MG TABLET PO PRN ×3 (05:50→14:49)
[2020-01-14] MEDS: GABAPENTIN 300 MG CAPSULE PO SCH ×2 (05:50→14:49)
[2020-01-14] MEDS: INSULIN SLIDING SCALE (NOVOLOG) 1 VIAL SQ SCH ×2 (06:01→10:59)
[2020-01-14 07:21] LABS: BASO % 0.9 % (0-2.0); EOS % 1.3 % (0-4.5); HEMATOCRIT 30.1 % (32.4-45.2); HEMOGLOBIN 9.9 GM/dL (10.7-15.3); LYMPH % 25.5 % (8-40); MCH 28.8 pg (25.7-33.7); MCHC 33.1 g/dl (32.0-36.0); MEAN CELL VOLUME 87.2 fl (80-96); MEAN PLT VOLUME 6.7 fl (7.5-11.1); MONO % 6.4 % (3.8-10.2); NEUT % 65.9 % (42.8-82.8); PLATELET COUNT 333 K/MM3 (134-434); RBC 3.45 M/mm3 (3.60-5.2); RDW 15.9 % (11.6-15.6)
[2020-01-14 07:42] LABS: BILIRUBIN,TOTAL 0.5 mg/dL (0.2-1); BLOOD UREA NITROGEN 27.4 mg/dL (7-18); CALCIUM 9.4 mg/dL (8.5-10.1); CREATININE 1.2 mg/dL (0.55-1.3); MAGNESIUM 1.8 mg/dL (1.8-2.4); PHOSPHOROUS 3.2 mg/dL (2.5-4.9); TOT PROT 8.8 g/dl (6.4-8.2)
[2020-01-14] MEDS: ASPIRIN COATED 81 MG TABLET.EC PO SCH (09:17)
[2020-01-14] MEDS: valACYclovir HCL 500 MG TABLET (FP) PO SCH (09:17)
[2020-01-14] MEDS: ENOXAPARIN NA (PORCINE) 40 MG/0.4 ML DISP.SYRIN SQ SCH (09:17)
[2020-01-14] MEDS: ALLOPURINOL 300 MG TABLET (FP) PO SCH (09:18)
[2020-01-14] MEDS: DOCUSATE SODIUM 100 MG CAPSULE (FP) PO SCH (09:18)
[2020-01-14] MEDS: PANTOPRAZOLE 40 MG TABLET PO SCH (09:18)
[2020-01-14] MEDS: SENNOSIDES 8.6MG TABLET (FP) PO SCH (09:18)
[2020-01-14] MEDS: LISINOPRIL 10 MG TABLET (FP) PO SCH (09:19)
[2020-01-14] MEDS: LIDOCAINE 5% TOPICAL PATCH TP SCH (09:19)
[2020-01-14] MEDS: amLODIPine BESYLATE 10 MG TABLET (FP) PO SCH (09:19)
[2020-01-14] MEDS: NAPH,MB-DB/K PH,MBDB POWDER PACKET PO SCH (09:19)
[2020-01-14] MEDS: ACETAMINOPHEN 500 MG TABLET (FP) PO PRN (09:20)
--- NOTE | 2020-01-14 12:55 | PN.HO ---
Progress Note (short form) - Note Progress Note: Patient seen and examined c/o difficulty ambulating c/o back pain Last Vital Signs Temp Pulse Resp BP Pulse Ox 98.7 F 86 18 156/80 94 L 01/06/20 19:32 01/06/20 19:32 01/06/20 19:32 01/06/20 19:32 01/06/20 10:00 Last Vital Signs Temp Pulse Resp BP Pulse Ox 98.6 F 74 20 141/64 95 01/08/20 13:33 01/08/20 13:33 01/08/20 13:33 01/08/20 13:33 01/08/20 10:00 Last Vital Signs Temp Pulse Resp BP Pulse Ox 97.9 F 99 H 20 161/82 96 01/09/20 22:00 01/09/20 22:00 01/09/20 22:00 01/09/20 22:00 01/09/20 21:00 Last Vital Signs Temp Pulse Resp BP Pulse Ox 98.1 F 71 20 167/83 95 01/12/20 06:20 01/12/20 06:20 01/12/20 06:20 01/12/20 06:20 01/11/20 21:00 Cor: RSR, No murmurs, No gallops Lungs: Clear to P&A Abd: Soft, Normal bowel sounds, No organomegaly Ext:No significant edema LAbd/Meds reviewed A/P Multiple myeloma with multiple pathologic vetebral compression fractures, most symptomatic at T4, T11 and L4 and L5 Pathologic compression fractures/ thecal sac compression T4/11, L4/5 on MRI done 12/29. Also degenerative central canal stenosis MRI C spine shows no e/o cord compression k/L ratio 6000s Velcade/dex 01/09/20 Add revlimid after RT s/p zometa 01/02 For PRBC transfusion Discussed with IR team. No consideration for kyphoplasty at this time. Discussed with rad-onc team and primary oncologist Dr. Lerma Discussed with case management team-- close follow up to be coordinated with rad-oncc and med-onc upon discharge
[2020-01-14 13:12] VITALS: BP 143/66; PULSE 75; TEMP 98.2
--- NOTE | 2020-01-14 13:15 | DS ---
Physical Examination Vital Signs: Vital Signs Temperature 987.3 F H 01/14/20 10:00 Pulse Rate 77 01/14/20 10:00 Respiratory Rate 18 01/14/20 10:00 Blood Pressure 147/64 01/14/20 10:00 O2 Sat by Pulse Oximetry (%) 99 01/14/20 09:00 Labs: CBC, BMP 01/14/20 06:35 01/14/20 06:35 Discharge Summary Problems reviewed: Yes Reason For Visit: FRACTURE OF VERTEBRA HYPERCALCEMIA Current Active Problems Multiple myeloma (Chronic) Spine fracture (Chronic) Hospital Course: 69 year old male with history of HTN, HLD, DM 2, recently diagnosed MM (follows with Dr. Lerma), presented with back pain, limiting mobility and ability to reach bathroom in time. She denies LE weakness or incontinence. She was found to have multiple spinal vertebral pathologic fractures. Patient was seen by neurosurgery, radiation oncology, oncology, nephrology. Patient was not considered a surgical candidate. Patient was started on IV dexamethasone, Revlimid, and Velcade. Patient will begin palliative radiation treatment with Dr. Chester as an outpatient. Patient discharged on pain regimen including lidocaine, standing Tylenol, oxycodone, and gabapentin. Pain control was improved with these medications but patient still has chronic discomfort. Patient was able to ambulate 150 feet with physical therapy. Patient also was found to be hypercalcemic. Status post bisphosphonate and calcitonin therapy with resolution of hypercalcemia. Patient was also started on allopurinol for elevated uric acid. She will follow-up with nephrology and oncology as an outpatient for further management. Patient requires home care and will be sent home with visiting nursing services. Condition: Guarded - Instructions Diet, Activity, Other Instructions: Your visit: You were admitted to [facility] on the advice of Dr. Lerma for midline back pain evaluation and treatment. While you were evaluated with lab work, blood work, EKG, and chest X-Ray. You were seen by our Content Checker Dr. Erik Mac, nephrology with Dr. Glo Finley, and neurosurgeon Dr. Norm Escamilla All who would like you to follow up within a week of discharge. You should continue your home medications as prescribed. You will be assigned a primary care doctor in the [facility] primary care group. You should follow up with your primary care doctor in 1 week after discharge. You should return to the emergency department if you have any worsening back pain, fatigue, numbness or tingling in your legs or feet, or sudden weakness in your extremities. CARE: It is advisable that you use the pain medication to mitigate the pain. We advise you to maintain hydration, diet, and proper hygiene. Will set up physical therapy at home. Medication: Please START taking Oxycodone 5mg every 6 hours as needed for pain management Please START taking Tylenol 1000mg once every eight hours as needed for pain Follow up Please continue all your medications as prescribed Please follow up with your primary care physician within 1 week (Dr. Will) Please follow up with your Content Checker within 1 week ( Dr. Mac) Please follow up with your bottom pounder cement shoes within 1 week (Dr. Finley) Please follow up with your neuro-surgeon within 1 week (Dr. Norm Escamilla) Please follow up with your radiation oncologist within 1 week ( Dr. Chester) We also advise you to be aware of your symptoms and if they reoccur to please arrive to your nearest emergency department immediately. Now improved on home meds Norvasc, MARTIN-I, and Metoprolol. Referrals: Imtiaz Chester MD [Staff Physician] - 01/16/20 11:00 am Norm Escamilla MD [Staff Physician] - 1 Week Glo Finley MD [Staff Physician] - 1 Week Erik Mac MD [Staff Physician] - 1 Week Ofelia Will [Primary Care Provider] - 1 Week Disposition: VNS/HOME HEALTH CARE - Home Medications Comprehensive Discharge Medication List: Ambulatory Orders Amlodipine Besylate/Benazepril [Lotrel 5-10 mg Capsule] 1 cap PO DAILY 06/15/17 Atorvastatin Ca [Lipitor] 40 mg PO HS 06/15/17 Metoprolol Succinate [Toprol Xl] 50 mg PO DAILY 06/15/17 Sitagliptin Phos/Metformin HCl [Janumet 50-1,000 mg Tablet] 1 each PO BID 06/15/17 Aspirin Coated [Ecotrin -] 81 mg PO DAILY 07/02/17 Allopurinol 300 mg PO DAILY 01/05/20 Ergocalciferol (Vitamin D2) [Vitamin D2] 50,000 unit PO WEEKLY 01/05/20 Valacyclovir HCl [Valtrex] 500 mg PO DAILY #30 tablet 01/13/20 Acetaminophen [Tylenol .Extra-Strength -] 1,000 mg PO Q8H PRN 30 Days #120 tablet 01/14/20 Allopurinol [Zyloprim -] 300 mg PO DAILY tablet 01/14/20 Docusate Sodium [Colace -] 100 mg PO BID 30 Days #60 capsule 01/14/20 Gabapentin [Neurontin -] 300 mg PO TID 30 Days #90 capsule 01/14/20 Lidocaine 5% Patch [Lidoderm -] 1 patch TP DAILY 30 Days #30 patch 01/14/20 Lidocaine Patch Removal [Lidoderm Patch Removal] 1 each MC DAILY@2200 each 01/14/20 Lisinopril [Prinivil] 10 mg PO DAILY #30 tablet 01/14/20 Oxycodone HCl 5 mg PO Q4H PRN #30 tablet MDD 3 pills 01/14/20 Polyethylene Glycol 3350 [Miralax 119 gm Btl -] 17 gm PO DAILY PRN 30 Days #8 bottle 01/14/20 Sennosides [Senna -] 1 tab PO BID 30 Days #60 tablet 01/14/20 Valacyclovir HCl [Valtrex -] 500 mg PO DAILY #30 tablet 01/14/20 Prescription Drug Monitoring Program (I-STOP) results: I-STOP reviewed and no issues identified This patient is new to me today: No Emergency Visit: Yes ED Registration Date: 01/03/20 Care time: The patient presented to the Emergency Department on the above date and was hospitalized for further evaluation of their emergent condition. Critical Care patient: No - Discharge Referral Referred to [facility] No
== END 2020-01-14 15:57 | disposition home health service (06) | DRG 841 ==
LOC: JER 08:58 → JERBED 11:12 → J6S 17:10 → J7W 01-09 15:10
PROVIDERS: ADMIT Internal Medicine; ATTEND Internal Medicine
PROC: 30233N1 Transfusion of Nonautologous Red Blood Cells into Peripheral Vein, Percutaneous Approach (ICD-10-PCS; principal; 2020-01-13)
DX: C90.00 Multiple myeloma not having achieved remission (principal); M84.48XA Pathological fracture, other site, initial encounter for fracture; E87.0 Hyperosmolality and hypernatremia; E83.52 Hypercalcemia; I16.0 Hypertensive urgency; E78.5 Hyperlipidemia, unspecified; R26.2 Difficulty in walking, not elsewhere classified; E11.9 Type 2 diabetes mellitus without complications; G89.3 Neoplasm related pain (acute) (chronic); M43.16 Spondylolisthesis, lumbar region; E87.6 Hypokalemia; N18.9 Chronic kidney disease, unspecified; M48.061 Spinal stenosis, lumbar region without neurogenic claudication; E83.39 Other disorders of phosphorus metabolism; E83.42 Hypomagnesemia
CPT/HCPCS: 36415; 36430; 36511; 71045-TC-FY; 72141-TC; 80048; 80053; 82962; 83036; 83615; 83735; 84100; 84550; 85025; 85027; 85610; 86850; 86870; 86900; 86901; 86902; 86922; 87040; 93005; 93010; 97116-GP; 97162-GP; 99285-25; J1100; J3489; J9041; P9038; P9058; U0003

== ENCOUNTER 2020-01-19 15:12 | Inpatient (IN) | payer BC, OTHER ==
--- NOTE | 2020-01-19 16:05 | PDOC ---
History of Present Illness - General Chief Complaint: Weakness Stated Complaint: WEAKNESS Time Seen by Provider: 01/19/20 16:04 - History of Present Illness Initial Comments: 01/19/20 16:30 69 PMH of HTN, HLD, DM, recently diagnosed MM (follows with Dr. Lerma, started Radiation this week) brought by ambulance for weakness. Patient came to the hospital because she believed her living condition was "deplorable". She got discharged last thursday However, they didn't give her a walker, toilet next to her bed. She complaints of difficulty getting up , moving around, and do ADL. However, Pt denies weakness/numbness into her lower ext, denies incontinence or retention of stool, denies saddle anesthesia,denies abdominal pain. Pt denies CP, SOB, F/C/N/V, sick contacts, calf swelling, calf tenderness or recent travel. PMH: stated above PSH: neg SS: neg MED: home meds PCP: Dr. Nicolette MENDOZA GENERAL/CONSTITUTIONAL: No fever or chills. No weakness. HEAD, EYES, EARS, NOSE AND THROAT: No change in vision. No ear pain or discharge. No sore throat. CARDIOVASCULAR: No chest pain or shortness of breath RESPIRATORY: No cough, wheezing, or hemoptysis. GASTROINTESTINAL: No nausea, vomiting, diarrhea or constipation. GENITOURINARY: No dysuria, frequency, or change in urination. MUSCULOSKELETAL: No joint or muscle swelling or pain. No neck or back pain. SKIN: No rash NEUROLOGIC: No headache, vertigo, loss of consciousness, or change in strength/sensation. ENDOCRINE: No increased thirst. No abnormal weight change HEMATOLOGIC/LYMPHATIC: No anemia, easy bleeding, or history of blood clots. ALLERGIC/IMMUNOLOGIC: No hives or skin allergy. PE GENERAL: Awake, alert, and fully oriented, in no acute distress HEAD: No signs of trauma, normocephalic, atraumatic EYES: PERRLA, EOMI, sclera anicteric, conjunctiva clear ENT: Auricles normal inspection, hearing grossly normal, nares patent, oropharynx clear without exudates. Moist mucosa NECK: Normal ROM, supple, no lymphadenopathy, JVD, or masses LUNGS: No distress, speaks full sentences, clear to auscultation bilaterally HEART: Regular rate and rhythm, normal S1 and S2, no murmurs, rubs or gallops, peripheral pulses normal and equal bilaterally. ABDOMEN: Soft, nontender, normoactive bowel sounds. No guarding, no rebound. No masses EXTREMITIES : Normal inspection, Normal range of motion, no edema. No clubbing or cyanosis. Vertebral Tenderness (T5-Coccyx), no CVA Tenderness NEUROLOGICAL: Cranial nerves II through XII grossly intact. Normal speech, no focal sensorimotor deficits. No saddle anesthesia, rectal tone normal, sensation and strength intact and equal bilateral lower ext SKIN: Warm, Dry, normal turgor, no rashes or lesions noted Past History - Medical History Allergies/Adverse Reactions: Allergies Allergy/AdvReac Type Severity Reaction Status Date / Time No Known Allergies Allergy Verified 01/03/20 10:49 Home Medications: Ambulatory Orders Amlodipine Besylate/Benazepril [Lotrel 5-10 mg Capsule] 1 cap PO DAILY 06/15/17 Atorvastatin Ca [Lipitor] 40 mg PO HS 06/15/17 Metoprolol Succinate [Toprol Xl] 50 mg PO DAILY 06/15/17 Sitagliptin Phos/Metformin HCl [Janumet 50-1,000 mg Tablet] 1 each PO BID 06/15/17 Aspirin Coated [Ecotrin -] 81 mg PO DAILY 07/02/17 Allopurinol 300 mg PO DAILY 01/05/20 Ergocalciferol (Vitamin D2) [Vitamin D2] 50,000 unit PO WEEKLY 01/05/20 Valacyclovir HCl [Valtrex] 500 mg PO DAILY #30 tablet 01/13/20 Acetaminophen [Tylenol .Extra-Strength -] 1,000 mg PO Q8H PRN 30 Days #120 tablet 01/14/20 Allopurinol [Zyloprim -] 300 mg PO DAILY tablet 01/14/20 Docusate Sodium [Colace -] 100 mg PO BID 30 Days #60 capsule 01/14/20 Gabapentin [Neurontin -] 300 mg PO TID 30 Days #90 capsule 01/14/20 Lidocaine 5% Patch [Lidoderm -] 1 patch TP DAILY 30 Days #30 patch 01/14/20 Lidocaine Patch Removal [Lidoderm Patch Removal] 1 each MC DAILY@2200 each 01/14/20 Lisinopril [Prinivil] 10 mg PO DAILY #30 tablet 01/14/20 Polyethylene Glycol 3350 [Miralax 119 gm Btl -] 17 gm PO DAILY PRN 30 Days #8 bottle 01/14/20 Sennosides [Senna -] 1 tab PO BID 30 Days #60 tablet 01/14/20 Valacyclovir HCl [Valtrex -] 500 mg PO DAILY #30 tablet 01/14/20 oxyCODONE HCL [Oxycodone HCl] 5 mg PO Q4H PRN #30 tablet MDD 3 pills 01/14/20 Anemia: No Asthma: No Cancer: Yes (MULTIPLE MYELOMA) Cardiac Disorders: No CVA: No COPD: No CHF: No Dementia: No Diabetes: Yes GI Disorders: No Disorders: No HTN: Yes Hypercholesterolemia: Yes Liver Disease: No Seizures: No Thyroid Disease: No - Surgical History Abdominal Surgery: No Appendectomy: No Cholecystectomy: Yes Lung Surgery: No Neurologic Surgery: No Orthopedic Surgery: No - Psycho-Social/Smoking History Smoking History: Never smoked Have you smoked in the past 12 months: No ED Treatment Course - LABORATORY CBC & Chemistry Diagram: 01/19/20 17:18 01/19/20 17:18 Medical Decision Making - Medical Decision Making 01/19/20 17:08 [place] with history of Hypertension, Diabetes, Multiple myeloma on radiation treatment, brought here by ambulance for weakness. She wanted to have help for activity daily living such as moving, transporting, eating, toileting. Given her negative review of system, and physical exam, she will be admitted for social admit. Chemistry: CBC, CMP, troponin, type and screen, UA were ordered. Imaging: Xray, EKG Vital sign: HTN of 200/90 Patient has not had home meds since Thursday. Will give her HTN medication: Toprol XL and Prinivil EKG shows normal rate, rhythm. P waves every QRS. No significant ST changes. Ventricular rate is 79, within normal limit. Compared to the previous EKG on December . Normal EKG MBMD was sent. Order to admit is in. Patient will be admitted to Dr. Diggs. CBC, CMP came back. Essentially, unchanged since previous admission. UA is pending. 01/19/20 19:46 Discharge - Discharge Information Problems reviewed: Yes Clinical Impression/Diagnosis: Weakness Condition: Fair - Follow up/Referral - Patient Discharge Instructions - Post Discharge Activity
[2020-01-19] MEDS ORDERED: LISINOPRIL 10 MG TABLET (FP) PO ONE ×2 (16:59→22:36)
[2020-01-19] MEDS ORDERED: LISINOPRIL 5 MG TABLET (FP) ONE (17:05)
--- NOTE | 2020-01-19 17:26 | PDOC ---
Documentation entered by Ambreen Chandler SCRIBE, acting as scribe for Trudi Alberto DO. Trudi Alberto DO: This documentation has been prepared by the Ramesh turpin Brenda, SCRIBE, under my direction and personally reviewed by me in its entirety. I confirm that the documentation accurately reflects all work, treatment, procedures, and medical decision making performed by me. Attending Attestation - Resident Resident Name: Efraín Shaffer - ED Attending Attestation I have performed the following: I have examined & evaluated the patient, The case was reviewed & discussed with the resident, I agree w/resident's findings & plan, Exceptions are as noted - HPI HPI: 01/19/20 16:50 The patient is a 69 year old female with a significant PMH of HTN, HLD, DM, recently diagnosed MM (follows with Dr. Lerma, started Radiation this week), multiple vertebral fractures who presents to the ED for evaluation of worsening weakness for 1 week. Patient was discharged 1 week ago after being here for weakness. She notes being having had IV decahedron and was discharged with palliative radiation for her vertebral fractures.Patient notes that she returns because she does not want to be admitted into a senior living but feels generally weakn, unable to go to the bathroom and needs help, such as a home health aide. SHe is also endorsing worsening back pain and limiting muscle ability. The patient denies chest pain, shortness of breath, headache and dizziness. Denies fever, chills, nausea, vomiting, diarrhea Denies dysuria, frequency, urgency and hematuria. Allergies: NKA Social history: No reported hx of tobacco use, alcohol use or illicit drug use. PCP: Sandy Will - Physicial Exam PE: 01/19/20 16:56 GENERAL: Awake, alert, and fully oriented, in no acute distress HEAD: No signs of trauma EYES: EOMI ENT: hearing grossly normal, nares patent, oropharynx clear without exudates. Moist mucosa NECK: Normal ROM, supple LUNGS: Breath sounds equal, clear to auscultation bilaterally. No wheezes, and no crackles HEART: Regular rate and rhythm, normal S1 and S2, no murmurs, rubs or gallops ABDOMEN: Soft, nontender, normoactive bowel sounds. No guarding, no rebound. No masses EXTREMITIES: limited ROM RLE secondary to pain, muscle strength intact, sensation intact, pulses intact. No clubbing or cyanosis. No cords, erythema, or tenderness back: no c/t/l spine ttp, no stepoffs or deformities, no erythema no swelling NEUROLOGICAL: Cranial nerves II through XII grossly intact. Normal speech SKIN: Warm, Dry, normal turgor, no rashes or lesions noted. 01/19/20 17:09 - Medical Decision Making 01/19/20 17:13 a/p: 69yo female with recent dx of MM on radiation therapy with generalized weakness -pt very frustrated that she was dc from the hospital last week without home PT and without vns -pt states her son lives upstairs but is busy and unable to help her -pt states she has difficulty getting to the bathroom and standing for long times in her kitchen to make food -no red flags -no signs/symptoms of caude equina -no dysuria, hematuria -no new back pain or falls -will send labs, ivf hydration -pt states she has not taken her po meds in 2 days -pt states she needs VNS at home -pt will need admission/pt eval/social work eval for vns 01/19/20 17:25 pt also denies all somatic complaints from elevated bp 01/19/20 18:05 cxr clear 01/19/20 18:06 no elevated wbc hgb stable 01/19/20 19:20 ua shows protein, hx of MM microblog sent to [facility] for admission 01/19/20 19:21 resident discussed the case with [facility] who accepts pt to service Heart Score/ECG Review - ECG Intrepretation Comment:: 01/19/20 17:23 sinus at 79, nl axis, nl interval, lvh, no acute st/t wave findings Discharge - Discharge Information Problems reviewed: Yes Clinical Impression/Diagnosis: Weakness Condition: Fair - Admission Yes - Follow up/Referral Referrals: Ofelia Will [Primary Care Provider] - - Patient Discharge Instructions - Post Discharge Activity
[2020-01-19 17:33] LABS: HEMATOCRIT 28.4 % (32.4-45.2); HEMOGLOBIN 9.5 GM/dL (10.7-15.3); MCH 29.5 pg (25.7-33.7); MCHC 33.3 g/dl (32.0-36.0); MEAN CELL VOLUME 88.4 fl (80-96); MEAN PLT VOLUME 6.8 fl (7.5-11.1); PLATELET COUNT 236 K/MM3 (134-434); RBC 3.21 M/mm3 (3.60-5.2); RDW 15.7 % (11.6-15.6); WHITE BLOOD COUNT 7.3 K/mm3 (4.0-10.0)
[2020-01-19 18:19] LABS: BILIRUBIN,TOTAL 0.3 mg/dL (0.2-1); BLOOD UREA NITROGEN 18.3 mg/dL (7-18); CREATININE 1.1 mg/dL (0.55-1.3); POTASSIUM 3.6 mmol/L (3.5-5.1); TOT PROT 8.6 g/dl (6.4-8.2)
[2020-01-19 19:07] LABS: EPI CELLS 30 /uL (0-25.1); HYALINE CASTS 4 /uL (0-3.1); PH,URINE 5.5 (5.0-8.0); URINE APPEARANCE CLEAR; URINE BACTERIA 42 /uL (0-1359); URINE BILIRUBIN NEGATIVE (NEGATIVE); URINE COLOR YELLOW; URINE GLUCOSE (UA) 3+ (NEGATIVE); URINE KETONE NEGATIVE (NEGATIVE); URINE LEUK ESTERASE NEGATIVE (NEGATIVE); URINE NITRITE NEGATIVE (NEGATIVE); URINE PROTEIN 3+ (NEGATIVE); URINE RBC 7 /uL (0-23.9); URINE UROBILINOGEN 0.2 mg/dL (0.2-1.0); URINE WBC 13 /uL (0-25.8)
--- NOTE | 2020-01-19 19:33 | PN ---
Teaching Attending Note Name of Resident: Jonathan Dalal ATTENDING PHYSICIAN STATEMENT I saw and evaluated the patient. I reviewed the resident's note and discussed the case with the resident. I agree with the resident's findings and plan as documented. SUBJECTIVE: Patient is a 69 year old woman with a PMH of HTN, HLD, DM, COVID-19 infection, recently diagnosed MM (follows with Dr. Lerma, started Radiation this week) and Multiple vertebral fractures who presents to the ER for evaluation of worsening weakness for 1 week. Patient was discharged 1 week ago after being here for weakness. She got IV Decadron and was discharged with palliative radiation for her vertebral fractures. Patient notes that she returns because she does not want to be admitted into a custodial but feels generally weak. Unable to go to the bathroom and needs help, such as a home health aide. She also has worsening back pain and limiting muscle ability. Patient denies chest pain, shortness of breath, headache, dizziness, fever, chills, nausea, vomiting, diarrhea, dysuria, frequency, urgency and hematuria. Denies alcohol, tobacco or illicit drug use. No sick contacts or recent travels. Has family history of HTN and DM on mother's side. OBJECTIVE: Alert Vital Signs Period Temp Pulse Resp BP Sys/Kerr Pulse Ox Last 24 Hr 98.9 F 80-83 17-18 173-209/82-86 98-98 HEENT: No Jaundice, eye redness or discharge, PERRLA, EOMI. Normocephalic, atraumatic. External ears are normal and hearing is grossly intact. No nasal discharge. Neck: Supple, nontender. No palpable adenopathy or thyromegaly. No JVD Chest: Good effort. Clear to auscultation and percussion. Heart: Regular. No S3, rub or murmur Abdomen: Not distended, soft, nontender and no HSM. No rebound or guarding. Normal bowel sounds. Ext: Peripheral pulses intact. No leg edema. Skin: Warm and dry. No petechiae, rash or ecchymosis. Neuro: Alert. Oriented x3. CN 2-12 grossly intact. Sensation grossly intact in all four extremities and DTR are symmetric. Gait not tested for safety reasons. Psych: Appropriate mood and affect. Good insight. Home Medications Medication Instructions Recorded Amlodipine Besylate/Benazepril 1 cap PO DAILY 06/15/17 [Lotrel 5-10 mg Capsule] Atorvastatin Ca [Lipitor] 40 mg PO HS 06/15/17 Metoprolol Succinate [Toprol Xl] 50 mg PO DAILY 06/15/17 Sitagliptin Phos/Metformin HCl 1 each PO BID 06/15/17 [Janumet 50-1,000 mg Tablet] Aspirin Coated [Ecotrin -] 81 mg PO DAILY 07/02/17 Allopurinol 300 mg PO DAILY 01/05/20 Ergocalciferol (Vitamin D2) 50,000 unit PO WEEKLY 01/05/20 [Vitamin D2] Valacyclovir HCl [Valtrex] 500 mg PO DAILY #30 tablet 01/13/20 Acetaminophen [Tylenol 1,000 mg PO Q8H PRN 30 Days #120 01/14/20 .Extra-Strength -] tablet Allopurinol [Zyloprim -] 300 mg PO DAILY tablet 01/14/20 Docusate Sodium [Colace -] 100 mg PO BID 30 Days #60 capsule 01/14/20 Gabapentin [Neurontin -] 300 mg PO TID 30 Days #90 capsule 01/14/20 Lidocaine 5% Patch [Lidoderm -] 1 patch TP DAILY 30 Days #30 patch 01/14/20 Lidocaine Patch Removal [Lidoderm 1 each MC DAILY@2200 each 01/14/20 Patch Removal] Lisinopril [Prinivil] 10 mg PO DAILY #30 tablet 01/14/20 Polyethylene Glycol 3350 [Miralax 17 gm PO DAILY PRN 30 Days #8 01/14/20 119 gm Btl -] bottle Sennosides [Senna -] 1 tab PO BID 30 Days #60 tablet 01/14/20 Valacyclovir HCl [Valtrex -] 500 mg PO DAILY #30 tablet 01/14/20 oxyCODONE HCL [Oxycodone HCl] 5 mg PO Q4H PRN #30 tablet MDD 3 01/14/20 pills Abnormal Lab Results 01/19/20 01/19/20 01/19/20 17:18 17:18 18:15 RBC 3.21 L Hgb 9.5 L Hct 28.4 L RDW 15.7 H MPV 6.8 L BUN 18.3 H Random Glucose 220 H AST 13 L Total Protein 8.6 H Albumin 3.0 L Urine Protein 3+ H Urine Glucose (UA) 3+ H Urine Blood 1+ H Current Medications Generic Name Dose Route Start Last Admin Trade Name Freq PRN Reason Stop Dose Admin Amlodipine Besylate 5 mg 01/20/20 10:00 Norvasc - PO DAILY OTILIA Enoxaparin Sodium 40 mg 01/20/20 10:00 Lovenox - SQ DAILY OTILIA Insulin Aspart 1 vial 01/19/20 22:00 01/19/20 21:58 Novolog Vial Sliding Scale - SQ 4 units ACHS OTILIA Administration Protocol Lisinopril 20 mg 01/20/20 22:00 Prinivil PO HS OTILIA Morphine Sulfate 2 mg 01/19/20 21:10 Morphine Sulfate IVPUSH Q4H PRN PAIN LEVEL 6-10 Oxycodone HCl 10 mg 01/19/20 22:00 01/19/20 21:58 Oxycontin - PO 10 mg BID OTILIA Administration ASSESSMENT AND PLAN: 1. Weakness - Likely due to debility associated with Multiple myeloma and it's treatment. No obvious evidence of infection. CXR shows cardiomegaly, increased interstitial markings and intramedullary ángel within the proximal right humerus shaft. Will hydrate her, provide pain control, bowel regimen and generous emotional support. Consult Oncology, PT and Palliative care - and discuss goals of care. Social work consult for Rehab placement. Viral testing for COVID-19 ordered and patient placed on airborne, droplet and contact isolation. EKG shows NSR at 79/minute, LVH and QTc [address]-T wave changes. Will continue comprehensive care for all of patients comorbid conditions. 2. Hypoalbuminemia - Possibly due to combined effects of proteinuria, malnutrition and inflammation associated with comorbid conditions. Will ensure adequate dietary protein intake and also consult coil builder. 3. Uncontrolled DM For now, we will hold the home diabetes drugs and implement sliding scale insulin regimen. Provide comprehensive diabetes care with patient teaching and counseling about the importance of adherence to prescribed diabetes regimen, euglycemia, eye care and foot care. 4. Anemia - Likely partly due to multiple myeloma. Will do basic anemia work up including serial stool guaiacs, reticulocyte count and iron studies. Would benefit from Procrit therapy once iron replete. 5. Uncontrolled Hypertension Got Lisinopril and Metoprolol PO in the ER. Will restart suitable outpatient antihypertensive drugs. Subsequently, will revise regimen to ensure [id number] excellent BP control. Patient counseled on the injurious effects of uncontrolled hypertension. Nonpharmacologic measures to control hypertension like weight loss, salt restriction and exercise stressed. Importance of adherence to treatment regimen and attainment of normotension emphasized. 6. DVT prophylaxis - Lovenox 40 mg SQ q 24 hours. 7. Advance directives - Full code
[2020-01-19] MEDS ORDERED: amLODIPine BESYLATE 5 MG TABLET (FP) PO ONE (20:05)
--- NOTE | 2020-01-19 20:32 | HP ---
CHIEF COMPLAINT: Back Pain PCP: Dr. Gilbert HISTORY OF PRESENT ILLNESS: 69 y.o. F PMHx of HTN, HLD, DM, Multiple myeloma (sees Dr. Lerma, started radiation this week, diagnosed in May 2019), covid. 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 Patient stated She has been feeling weak and has an inability to perform her ADL's. She stated she was supposed to be given a camode, walker and a home health aid with frequent visits, none of which occured. Today she is feeling well complains of back pain. weakness and numbness in her fingertips. She is also concerned for her own well being. She has also not been able to take her hypertensive medication this past week due to not having the refills sent. She has 3 sons 1 of which she lives with and will help her around the apartment "when he has time". The other 2 sons live in [place]. 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 Patient was admitted here on 01/03/2020 for multiple fractures at T11, L4-L5 w/ no spinal cord impingement & hypercalcemia of 13.4. ER course was notable for: (1) Toprol 50mg (2) Lisinopril 10mg (3) EKG Recent Travel: None PAST MEDICAL HISTORY: HTN, HLD, DM, Multiple myeloma, recovered Covid PAST SURGICAL HISTORY: Cholecystectomy Social History: Smoking: None Alcohol: None Drugs: None Allergies No Known Allergies Allergy (Verified 01/03/20 10:49) HOME MEDICATIONS: Home Medications Medication Instructions Recorded Amlodipine Besylate/Benazepril 1 cap PO DAILY 06/15/17 [Lotrel 5-10 mg Capsule] Atorvastatin Ca [Lipitor] 40 mg PO HS 06/15/17 Metoprolol Succinate [Toprol Xl] 50 mg PO DAILY 06/15/17 Sitagliptin Phos/Metformin HCl 1 each PO BID 06/15/17 [Janumet 50-1,000 mg Tablet] Aspirin Coated [Ecotrin -] 81 mg PO DAILY 07/02/17 Allopurinol 300 mg PO DAILY 01/05/20 Ergocalciferol (Vitamin D2) 50,000 unit PO WEEKLY 01/05/20 [Vitamin D2] Valacyclovir HCl [Valtrex] 500 mg PO DAILY #30 tablet 01/13/20 Acetaminophen [Tylenol 1,000 mg PO Q8H PRN 30 Days #120 01/14/20 .Extra-Strength -] tablet Allopurinol [Zyloprim -] 300 mg PO DAILY tablet 01/14/20 Docusate Sodium [Colace -] 100 mg PO BID 30 Days #60 capsule 01/14/20 Gabapentin [Neurontin -] 300 mg PO TID 30 Days #90 capsule 01/14/20 Lidocaine 5% Patch [Lidoderm -] 1 patch TP DAILY 30 Days #30 patch 01/14/20 Lidocaine Patch Removal [Lidoderm 1 each MC DAILY@2200 each 01/14/20 Patch Removal] Lisinopril [Prinivil] 10 mg PO DAILY #30 tablet 01/14/20 Polyethylene Glycol 3350 [Miralax 17 gm PO DAILY PRN 30 Days #8 01/14/20 119 gm Btl -] bottle Sennosides [Senna -] 1 tab PO BID 30 Days #60 tablet 01/14/20 Valacyclovir HCl [Valtrex -] 500 mg PO DAILY #30 tablet 01/14/20 oxyCODONE HCL [Oxycodone HCl] 5 mg PO Q4H PRN #30 tablet MDD 3 01/14/20 pills REVIEW OF SYSTEMS CONSTITUTIONAL: Generalized weakness Absent: fever, chills, diaphoresis, malaise, loss of appetite, weight change HEENT: Absent: rhinorrhea, nasal congestion, throat pain, throat swelling, difficulty swallowing, mouth swelling, ear pain, eye pain, visual changes CARDIOVASCULAR: Absent: chest pain, syncope, palpitations, irregular heart rate, lightheadedness, peripheral edema RESPIRATORY: Dyspnea with exertion Absent: cough, shortness of breath, orthopnea, wheezing, stridor, hemoptysis GASTROINTESTINAL: Absent: abdominal pain, abdominal distension, nausea, vomiting, diarrhea, const ipation, melena, hematochezia GENITOURINARY: Absent: dysuria, frequency, urgency, hesitancy, hematuria, flank pain, genital pain MUSCULOSKELETAL: Back pain Absent: myalgia, arthralgia, joint swelling, neck pain SKIN: Absent: rash, itching, pallor HEMATOLOGIC/IMMUNOLOGIC: Absent: easy bleeding, easy bruising, lymphadenopathy, frequent infections ENDOCRINE: Absent: unexplained weight gain, unexplained weight loss, heat intolerance, cold intolerance NEUROLOGIC: Absent: headache, focal weakness or paresthesias, dizziness, unsteady gait, seizure, mental status changes, bladder or bowel incontinence PSYCHIATRIC: Absent: anxiety, depression, suicidal or homicidal ideation, hallucinations. PHYSICAL EXAMINATION Vital Signs - 24 hr 01/19/20 01/19/20 01/19/20 16:00 18:14 20:02 Temperature 98.9 F Pulse Rate 83 Pulse Rate [ 80 82 Left] Respiratory 17 18 18 Rate Blood Pressure 209/84 H Blood Pressure 179/86 H 173/82 H [Left Arm] O2 Sat by Pulse 98 98 98 Oximetry (%) GENERAL: Awake, alert, and fully oriented, in no acute distress. HEAD: Normal with no signs of trauma. EYES: Pupils equal, round and reactive to light, extraocular movements intact, sclera anicteric, conjunctiva clear. EARS, NOSE, THROAT: Oropharynx clear without exudates. Moist mucous membranes. NECK: Normal range of motion, supple without lymphadenopathy, JVD, or masses. LUNGS: Breath sounds equal, clear to auscultation bilaterally. No wheezes, and no crackles. No accessory muscle use. HEART: Regular rate and rhythm, normal S1 and S2 without murmur, rub or gallop. ABDOMEN: Soft, nontender, not distended, normoactive bowel sounds, no guarding, no rebound, no masses. MUSCULOSKELETAL: Normal range of motion at all joints. Tenderness in the lumbar region UPPER EXTREMITIES: 2+ pulses, warm, well-perfused. No peripheral edema. LOWER EXTREMITIES: 2+ pulses, warm, well-perfused. No calf tenderness. No peripheral edema. NEUROLOGICAL: Cranial nerves II-XII intact. Normal speech. PSYCHIATRIC: Cooperative. Good eye contact. Appropriate mood and affect. SKIN: Warm, dry, normal turgor, no rashes or lesions noted. Laboratory Results - last 24 hr 01/19/20 01/19/20 01/19/20 17:18 17:18 17:18 WBC 7.3 RBC 3.21 L Hgb 9.5 L Hct 28.4 L MCV 88.4 MCH 29.5 MCHC 33.3 RDW 15.7 H Plt Count 236 D MPV 6.8 L Sodium 137 Potassium 3.6 Chloride 104 Carbon Dioxide 25 Anion Gap 9 BUN 18.3 H Creatinine 1.1 Est GFR (CKD-EPI)AfAm 58.50 Est GFR (CKD-EPI)NonAf 50.47 Random Glucose 220 H Calcium 10.0 Total Bilirubin 0.3 AST 13 L ALT 16 Alkaline Phosphatase 101 Troponin I 0.04 Total Protein 8.6 H Albumin 3.0 L Urine Color Urine Appearance Urine pH Ur Specific [place] Urine Protein Urine Glucose (UA) Urine Ketones Urine Blood Urine Nitrite Urine Bilirubin Urine Urobilinogen Ur Leukocyte Esterase Urine WBC (Auto) Urine RBC (Auto) Urine Casts (Auto) U Epithel Cells (Auto) Urine Bacteria (Auto) Blood Type B POSITIVE Antibody Screen Negative 01/19/20 18:15 WBC RBC Hgb Hct MCV MCH MCHC RDW Plt Count MPV Sodium Potassium Chloride Carbon Dioxide Anion Gap BUN Creatinine Est GFR (CKD-EPI)AfAm Est GFR (CKD-EPI)NonAf Random Glucose Calcium Total Bilirubin AST ALT Alkaline Phosphatase Troponin I Total Protein Albumin Urine Color Yellow Urine Appearance Clear Urine pH 5.5 Ur Specific [place] 1.025 Urine Protein 3+ H Urine Glucose (UA) 3+ H Urine Ketones Negative Urine Blood 1+ H Urine Nitrite Negative Urine Bilirubin Negative Urine Urobilinogen 0.2 Ur Leukocyte Esterase Negative Urine WBC (Auto) 13 Urine RBC (Auto) 7 Urine Casts (Auto) 4 U Epithel Cells (Auto) 30 Urine Bacteria (Auto) 42 Blood Type Antibody Screen ASSESSMENT/PLAN: 69 y.o. F PMHx of HTN, HLD, DM, Multiple myeloma, covid. Presents due to poor living conditions, back pain and weakness. # Back Pain - Likely secondary to multiple myeloma - Pain has been severely limiting patients ADL'S - Pain management Morphine 2mg Q4 & Oxycontin 10mg BID - Consult Oncology (Dr. Lerma) - Consult Pain (Dr. Casanova) - Physical therapy request - developmental services worker request - Palliative care request # HTN - Likely due to lack of home medications this past week - BP on admission / - Lisinopril 20mg PO daily - Amlodipine 5mg PO daily - Vitals Q4 # Diabetes - Glucose 220 - Sliding scale - BGM - Last admission A1C 6% #Anemia - Likely secondary to multiple myeloma - Hgb 9.5, Hct 28.4 - Iron studies - Guiac ordered # HLD - Continue home dose Lipitor # Urinalysis - UA shows 3+ protein, 3+ glucose, 1+ blood - likely secondary to Diabetes and multiple myeloma - Repeat UA with AM labs # Covid r/o - Patient has Hx o Covid infection - Covid PCR Ordered - PCR ordered due to geographic location of pandemic - Placed in isolation precautions # FEN - Encourage oral hydration - Sodium controlled diet # DVT Prophylaxis - Lovenox 40mg BID # Dispo - Admitted to Med-Surg; Vitals and labs will be closely monitored Visit type - Emergency Visit Emergency Visit: Yes ED Registration Date: 01/19/20 Care time: The patient presented to the Emergency Department on the above date and was hospitalized for further evaluation of their emergent condition. - New Patient This patient is new to me today: Yes Date on this admission: 01/20/20 - Critical Care Critical Care patient: No ATTENDING PHYSICIAN STATEMENT I saw and evaluated the patient. I reviewed the resident's note and discussed the case with the resident. I agree with the resident's findings and plan as documented. SUBJECTIVE: OBJECTIVE: ASSESSMENT AND PLAN:
[2020-01-19] MEDS ORDERED: MORPHINE SULFATE 2 MG/ML VIAL IVPUSH PRN (21:10)
[2020-01-19] MEDS ORDERED: LISINOPRIL 20 MG TABLET (FP) PO ONE (21:30)
[2020-01-19 21:31] VITALS: BMI 22.4
[2020-01-19] MEDS: oxyCODONE HCL 10 MG SUSTAINED ACTING TABLET PO SCH (21:58)
[2020-01-19] MEDS: INSULIN SLIDING SCALE (NOVOLOG) 1 VIAL SQ SCH (21:58)
[2020-01-20] MEDS ORDERED: POLYETHYLENE GLYCOL 3350 119 GM BTL PO PRN (01:00)
[2020-01-20] MEDS: GABAPENTIN 300 MG CAPSULE PO SCH ×3 (06:26→21:19)
[2020-01-20] MEDS: INSULIN SLIDING SCALE (NOVOLOG) 1 VIAL SQ SCH ×4 (06:27→21:19)
[2020-01-20 08:48] LABS: MCHC 33.4 g/dl (32.0-36.0); MEAN CELL VOLUME 86.9 fl (80-96); MEAN PLT VOLUME 6.8 fl (7.5-11.1); PLATELET COUNT 233 K/MM3 (134-434); RDW 15.5 % (11.6-15.6); WHITE BLOOD COUNT 7.1 K/mm3 (4.0-10.0)
[2020-01-20 09:04] LABS: POTASSIUM 3.1 mmol/L (3.5-5.1)
[2020-01-20 09:16] LABS: BLOOD UREA NITROGEN 17.7 mg/dL (7-18); CALCIUM 9.6 mg/dL (8.5-10.1); CREATININE 1.1 mg/dL (0.55-1.3); MAGNESIUM 1.8 mg/dL (1.8-2.4); PHOSPHOROUS 2.6 mg/dL (2.5-4.9)
[2020-01-20 09:55] LABS: EPI CELLS 27 /uL (0-25.1); HYALINE CASTS 3 /uL (0-3.1); URINE APPEARANCE CLEAR; URINE BACTERIA 62 /uL (0-1359); URINE BILIRUBIN NEGATIVE (NEGATIVE); URINE COLOR YELLOW; URINE GLUCOSE (UA) 1+ (NEGATIVE); URINE KETONE NEGATIVE (NEGATIVE); URINE LEUK ESTERASE NEGATIVE (NEGATIVE); URINE NITRITE NEGATIVE (NEGATIVE); URINE PROTEIN 3+ (NEGATIVE); URINE RBC 7 /uL (0-23.9); URINE UROBILINOGEN 0.2 mg/dL (0.2-1.0); URINE WBC 11 /uL (0-25.8)
[2020-01-20] MEDS: POTASSIUM CHLORIDE TABS 20 MEQ TABLET.ER (FP) PO SCH ×2 (10:15→21:18)
[2020-01-20] MEDS: amLODIPine BESYLATE 5 MG TABLET (FP) PO SCH (10:15)
[2020-01-20] MEDS: oxyCODONE HCL 10 MG SUSTAINED ACTING TABLET PO SCH (10:16)
[2020-01-20] MEDS: LIDOCAINE 5% TOPICAL PATCH TP SCH (10:16)
[2020-01-20] MEDS: ENOXAPARIN NA (PORCINE) 40 MG/0.4 ML DISP.SYRIN SQ SCH (10:16)
--- NOTE | 2020-01-20 10:24 | EKG ---
Test Reason : Blood Pressure : / mmHG Vent. Rate : 079 BPM Atrial Rate : 079 BPM P-R Int : 154 ms QRS Dur : 086 ms QT Int : 358 ms P-R-T Axes : 020 -13 034 degrees QTc Int : 410 ms NORMAL SINUS RHYTHM VOLTAGE CRITERIA FOR LEFT VENTRICULAR HYPERTROPHY NONSPECIFIC T WAVE ABNORMALITY ABNORMAL ECG WHEN COMPARED WITH ECG OF 03-JAN-2020 10:41, NO SIGNIFICANT CHANGE WAS FOUND Confirmed by CYNDI RIVERO MD ([id number]) on 01/20/2020 10:23:36 AM Referred By: Confirmed By:CYNDI RIVERO MD
--- NOTE | 2020-01-20 11:09 | CONSULT ---
Consult Consult Specialty:: Palliative Care Referred by:: Solomon See Reason for Consultation:: Goals of Care - History of Present Illness Chief Complaint: weakness History of Present Illness: 69 y.o. F w/ PMHx. of HTN, HLD, Multiple Myeloma(s/p Dexamethasone, 1 cycle of Velcade, and 1 cycle of RT), and Hx. of COVID infection presents from home on 01/18 after being visited by VNS and her home being deemed unsafe for her. Pt. r anjelica began treatment for Multiple Myeloma with multiple vertebral fractures ,worsening weakness for 1 week. Patient was discharged 1 week ago after being here for weakness. She had IV decadron and was discharged with palliative radiation for her vertebral fractures. s/p RT- 1st treatment last Thursday. Pt. was supposed to complete Palliative radiation therapy prior to starting Revlimid. She has generalized weakness and is unable to take care of herself at home. She. states that she does not have the appropriate bed, commode, or bathroom seat to be able to take care of herself. She is unable to cook, clean or take care of her household responsibilities by herself. Pt. states that it takes an hour to get out of bed and therefore she spends most of her time in bed or lying still. However, Pt denies weakness/numbness into her lower ext, denies incontinence or retention of stool, denies saddle anesthesia,denies abdominal pain. Pt denies CP, SOB, F/C/N/V, sick contacts, calf swelling, calf tenderness or recent travel.Palliative care consult called for goals of care. - History Source History Provided By: Patient Limitations to Obtaining History: No Limitations - Past Medical History Cardio/Vascular: Yes: HTN, Hyperlipdemia Heme/Onc: Yes: Cancer, Current Chemotherapy, Current Radiation Therapy Endocrine: Yes: Diabetes Mellitus - Past Surgical History Past Surgical History: Yes: Cholecystectomy - Alcohol/Substance Use Hx Alcohol Use: No History of Substance Use: reports: None - Smoking History Smoking history: Never smoked Have you smoked in the past 12 months: No - Social History Usual Living Arrangement: Alone Home Medications - Allergies Allergies/Adverse Reactions: Allergies Allergy/AdvReac Type Severity Reaction Status Date / Time No Known Allergies Allergy Verified 01/03/20 10:49 - Home Medications Home Medications: Ambulatory Orders Atorvastatin Ca [Lipitor] 40 mg PO HS 06/15/17 Metoprolol Succinate [Toprol Xl] 50 mg PO DAILY 06/15/17 Sitagliptin Phos/Metformin HCl [Janumet 50-1,000 mg Tablet] 50 - 1,000 mg PO BID 06/15/17 Aspirin Coated [Ecotrin -] 81 mg PO DAILY 07/02/17 Allopurinol 300 mg PO DAILY 01/05/20 Docusate Sodium [Colace -] 100 mg PO BID 30 Days #60 capsule 01/14/20 Lidocaine Patch Removal [Lidoderm Patch Removal] 1 each MC DAILY@2200 each 01/14/20 oxyCODONE HCL [Oxycodone HCl] 5 mg PO Q4H PRN #30 tablet MDD 3 pills 01/14/20 Acetaminophen [Tylenol -] 1,000 mg PO Q8H 01/20/20 Amlodipine Besylate/Benazepril [Lotrel 5-10 mg Capsule] 5 - 10 mg PO DAILY 01/20/20 Ergocalciferol (Vitamin D2) [Vitamin D2] 50,000 unit PO WEEKLY 01/20/20 Gabapentin 300 mg PO TID 01/20/20 Valacyclovir HCl [Valacyclovir] 500 mg PO DAILY 01/20/20 Family Medical History Family History: Unremarkable Review of Systems - Review of Systems Constitutional: reports: Lethargy, Weakness Gastrointestinal: reports: Nausea Musculoskeletal: reports: Back Pain, Muscle Weakness Neurological: reports: Parasthesia Physical Exam Vital Signs: Vital Signs Temperature 98.7 F 01/20/20 06:00 Pulse Rate 79 01/20/20 06:00 Respiratory Rate 18 01/20/20 06:00 Blood Pressure 150/76 01/20/20 06:00 O2 Sat by Pulse Oximetry (%) 94 L 01/20/20 06:00 Constitutional: Yes: Well Nourished, No Distress, Calm Eyes: Yes: Conjunctiva Clear, EOM Intact HENT: Yes: Atraumatic, Normocephalic Neck: Yes: Supple Cardiovascular: Yes: Regular Rate and Rhythm Respiratory: Yes: Regular, CTA Bilaterally Gastrointestinal: Yes: Normal Bowel Sounds, Soft Extremities: Yes: WNL Neurological: Yes: Alert, Oriented Labs: CBC, BMP 01/20/20 08:11 01/20/20 08:11 Imaging - Results Chest X-ray: Report Reviewed MRI: Report Reviewed Problem List - Problems (1) Multiple myeloma Code(s): C90.00 - MULTIPLE MYELOMA NOT HAVING ACHIEVED REMISSION (2) Spine fracture Code(s): KVI8629 - Assessment/Plan 69 y.o. F w/ PMHx. of HTN, HLD, Multiple Myeloma(s/p Dexamethasone, 1 cycle of Velcade, and 1 cycle of RT), and Hx. of COVID infection with multiple vertebral fractures ,worsening weakness for 1 week. s/p RT- 1st treatment last Thursday. Pt. was supposed to complete Palliative radiation therapy prior to starting Revlimid. She has generalized weakness and is unable to take care of herself at home. She. states that she does not have the appropriate bed, commode, or bathroom seat to be able to take care of herself. She is unable to cook, clean or take care of her household responsibilities by herself. Multiple myeloma with multiple pathologic vertebral compression fractures, most symptomatic at T4, T11 and L4 and L5 Pathologic compression fractures/ thecal sac compression T4/11, L4/5 on MRI done 12/29. Also degenerative central canal stenosis MRI C spine shows no cord compression generalized weakness dependent for all adls/ ambulation peripheral neuropathy back pain s/p Velcade/dex 01/09/20 s/p zometa 01/02 As per Onc No consideration for kyphoplasty at this time. Patient is full code She has a HCP and a living will. She is s/p her first radiation treatment and denies any significant adverse effects but has significant weakness. She does need assistance with ADLS and does not want to go to SNF at this time. She would benefit from PT eval and home PT services on dc along with DME. Pain management- narcotics, gabapentin s/p bisphosphonate Prognosis guarded. Thanku for allowing me to participate in the care of this patient. Please call with questions. Justus Rose MD [phone] Total time for chart review, examination and coordination of care- 50 minutes.
--- NOTE | 2020-01-20 15:56 | PN ---
Teaching Attending Note Name of Resident: Viktor Escobar ATTENDING PHYSICIAN STATEMENT I saw and evaluated the patient. I reviewed the resident's note and discussed the case with the resident. I agree with the resident's findings and plan as documented. SUBJECTIVE: Complains of difficulty ambulating/performing ADLs. No fever/chills. No cough/sputum. OBJECTIVE: Afebrile, Hemodynamically Stable. Last Vital Signs Temp Pulse Resp BP Pulse Ox 98.7 F 82 18 174/85 H 96 01/20/20 10:00 01/20/20 10:00 01/20/20 10:00 01/20/20 10:00 01/20/20 10:00 HEENT- Atraumatic, Normocephalic. Heart - S1, S2, RRR Lungs - clear to auscultation Abdomen - Soft, non-tender. Bowel Sounds normal. Extremities - no calf tenderness. Neuro - AAO x 3. tone/Power normal all extremities. Laboratory Results - last 24 hr 01/19/20 01/19/20 01/19/20 17:18 17:18 17:18 WBC 7.3 RBC 3.21 L Hgb 9.5 L Hct 28.4 L MCV 88.4 MCH 29.5 MCHC 33.3 RDW 15.7 H Plt Count 236 D MPV 6.8 L Sodium 137 Potassium 3.6 Chloride 104 Carbon Dioxide 25 Anion Gap 9 BUN 18.3 H Creatinine 1.1 Est GFR (CKD-EPI)AfAm 58.50 Est GFR (CKD-EPI)NonAf 50.47 POC Glucometer Random Glucose 220 H Calcium 10.0 Phosphorus Magnesium Iron TIBC Iron Saturation Unsaturated IBC Total Bilirubin 0.3 AST 13 L ALT 16 Alkaline Phosphatase 101 Troponin I 0.04 Total Protein 8.6 H Albumin 3.0 L Urine Color Urine Appearance Urine pH Ur Specific [place] Urine Protein Urine Glucose (UA) Urine Ketones Urine Blood Urine Nitrite Urine Bilirubin Urine Urobilinogen Ur Leukocyte Esterase Urine WBC (Auto) Urine RBC (Auto) Urine Casts (Auto) U Epithel Cells (Auto) Urine Bacteria (Auto) Blood Type B POSITIVE Antibody Screen Negative 01/19/20 01/19/20 01/20/20 18:15 21:53 06:26 WBC RBC Hgb Hct MCV MCH MCHC RDW Plt Count MPV Sodium Potassium Chloride Carbon Dioxide Anion Gap BUN Creatinine Est GFR (CKD-EPI)AfAm Est GFR (CKD-EPI)NonAf POC Glucometer 238 167 Random Glucose Calcium Phosphorus Magnesium Iron TIBC Iron Saturation Unsaturated IBC Total Bilirubin AST ALT Alkaline Phosphatase Troponin I Total Protein Albumin Urine Color Yellow Urine Appearance Clear Urine pH 5.5 Ur Specific [place] 1.025 Urine Protein 3+ H Urine Glucose (UA) 3+ H Urine Ketones Negative Urine Blood 1+ H Urine Nitrite Negative Urine Bilirubin Negative Urine Urobilinogen 0.2 Ur Leukocyte Esterase Negative Urine WBC (Auto) 13 Urine RBC (Auto) 7 Urine Casts (Auto) 4 U Epithel Cells (Auto) 30 Urine Bacteria (Auto) 42 Blood Type Antibody Screen 01/20/20 01/20/20 01/20/20 07:13 08:11 08:11 WBC 7.1 RBC 3.10 L Hgb 9.0 L Hct 27.0 L MCV 86.9 MCH 29.0 MCHC 33.4 RDW 15.5 Plt Count 233 MPV 6.8 L Sodium 139 Potassium 3.1 L Chloride 104 Carbon Dioxide 25 Anion Gap 10 BUN 17.7 Creatinine 1.1 Est GFR (CKD-EPI)AfAm 58.50 Est GFR (CKD-EPI)NonAf 50.47 POC Glucometer Random Glucose 156 H Calcium 9.6 Phosphorus 2.6 Magnesium 1.8 Iron 64 TIBC 187 L Iron Saturation 34 Unsaturated IBC 123 L Total Bilirubin AST ALT Alkaline Phosphatase Troponin I Total Protein Albumin Urine Color Yellow Urine Appearance Clear Urine pH 6.0 Ur Specific [place] 1.019 Urine Protein 3+ H Urine Glucose (UA) 1+ H Urine Ketones Negative Urine Blood Trace Urine Nitrite Negative Urine Bilirubin Negative Urine Urobilinogen 0.2 Ur Leukocyte Esterase Negative Urine WBC (Auto) 11 Urine RBC (Auto) 7 Urine Casts (Auto) 3 U Epithel Cells (Auto) 27 Urine Bacteria (Auto) 62 Blood Type Antibody Screen 01/20/20 11:50 WBC RBC Hgb Hct MCV MCH MCHC RDW Plt Count MPV Sodium Potassium Chloride Carbon Dioxide Anion Gap BUN Creatinine Est GFR (CKD-EPI)AfAm Est GFR (CKD-EPI)NonAf POC Glucometer 226 Random Glucose Calcium Phosphorus Magnesium Iron TIBC Iron Saturation Unsaturated IBC Total Bilirubin AST ALT Alkaline Phosphatase Troponin I Total Protein Albumin Urine Color Urine Appearance Urine pH Ur Specific [place] Urine Protein Urine Glucose (UA) Urine Ketones Urine Blood Urine Nitrite Urine Bilirubin Urine Urobilinogen Ur Leukocyte Esterase Urine WBC (Auto) Urine RBC (Auto) Urine Casts (Auto) U Epithel Cells (Auto) Urine Bacteria (Auto) Blood Type Antibody Screen Current Medications Generic Name Dose Route Start Last Admin Trade Name Freq PRN Reason Stop Dose Admin Amlodipine Besylate 5 mg 01/20/20 10:00 01/20/20 10:15 Norvasc - PO 5 mg DAILY OTILIA Administration Atorvastatin Calcium 40 mg 01/20/20 22:00 Lipitor - PO HS [facility] Enoxaparin Sodium 40 mg 01/20/20 10:00 01/20/20 10:16 Lovenox - SQ 40 mg DAILY OTILIA Administration Gabapentin 300 mg 01/20/20 06:00 01/20/20 14:34 Neurontin - PO 300 mg TID OTILIA Administration Insulin Aspart 1 vial 01/19/20 22:00 01/20/20 11:51 Novolog Vial Sliding Scale - SQ 4 units ACHS OTILIA Administration Protocol Lidocaine 1 patch 01/20/20 10:00 01/20/20 10:16 Lidoderm Patch - TP 1 patch DAILY [facility] Administration Lisinopril 20 mg 01/20/20 22:00 Prinivil PO HS [facility] Miscellaneous 1 each 01/20/20 22:00 Lidoderm Patch Removal MC DAILY@2200 [facility] Oxycodone HCl 10 mg 01/20/20 09:34 Roxicodone - PO Q6H PRN PAIN LEVEL 6-10 Polyethylene Glycol 17 gm 01/20/20 01:00 Miralax (For Daily Use) - PO DAILY PRN CONSTIPATION Potassium Chloride 40 meq 01/20/20 10:00 01/20/20 10:15 K-Dur - PO 01/20/20 22:01 40 meq BID OTILIA Administration Home Medications Medication Instructions Recorded Amlodipine Besylate/Benazepril 1 cap PO DAILY 06/15/17 [Lotrel 5-10 mg Capsule] Atorvastatin Ca [Lipitor] 40 mg PO HS 06/15/17 Metoprolol Succinate [Toprol Xl] 50 mg PO DAILY 06/15/17 Sitagliptin Phos/Metformin HCl 1 each PO BID 06/15/17 [Janumet 50-1,000 mg Tablet] Aspirin Coated [Ecotrin -] 81 mg PO DAILY 07/02/17 Allopurinol 300 mg PO DAILY 01/05/20 Ergocalciferol (Vitamin D2) 50,000 unit PO WEEKLY 01/05/20 [Vitamin D2] Valacyclovir HCl [Valtrex] 500 mg PO DAILY #30 tablet 01/13/20 Acetaminophen [Tylenol 1,000 mg PO Q8H PRN 30 Days #120 01/14/20 .Extra-Strength -] tablet Allopurinol [Zyloprim -] 300 mg PO DAILY tablet 01/14/20 Docusate Sodium [Colace -] 100 mg PO BID 30 Days #60 capsule 01/14/20 Gabapentin [Neurontin -] 300 mg PO TID 30 Days #90 capsule 01/14/20 Lidocaine 5% Patch [Lidoderm -] 1 patch TP DAILY 30 Days #30 patch 01/14/20 Lidocaine Patch Removal [Lidoderm 1 each MC DAILY@2200 each 01/14/20 Patch Removal] Lisinopril [Prinivil] 10 mg PO DAILY #30 tablet 01/14/20 Polyethylene Glycol 3350 [Miralax 17 gm PO DAILY PRN 30 Days #8 01/14/20 119 gm Btl -] bottle Sennosides [Senna -] 1 tab PO BID 30 Days #60 tablet 01/14/20 Valacyclovir HCl [Valtrex -] 500 mg PO DAILY #30 tablet 01/14/20 oxyCODONE HCL [Oxycodone HCl] 5 mg PO Q4H PRN #30 tablet MDD 3 01/14/20 pills ASSESSMENT AND PLAN: 69 year old female with history of HTN, HLD, DM 2, Multiple Myeloma (sees Dr. Lerma, started radiation this week, diagnosed in May 2019), presents to ED with complaints of weakness and inability to perform ADLs. Recently admitted 01/03/2020 for multiple fractures at T11, L4-L5 w/ no spinal cord impingement & hypercalcemia of 13.4. 1. Back Pain - secondary to pathologic T/L fractures s/p Velcade/Dex 01/08, Zometa 01/02 Scheduled for Radiation therapy with Dr Canales Further management as per Oncology. PT eval. Palliative care consult. Oxycodone PRN for pain, Gabapentin. 2. HTN - Continue Lisinopril, Amlodipine, Metoprolol. 3. DM 2 - Janumet held. Novolog sliding scale. 4. HLD - continue Lipitor. DVT Px - Lovenox SQ
--- NOTE | 2020-01-20 17:30 | CONSULT ---
Consultation: REQUESTING PROVIDER: Dr. Diggs CONSULT REQUEST: We have been asked to medically evaluate this patient for Multiple Myeloma. HISTORY OF PRESENT ILLNESS: Pt. is a 69 y.o. F w/ PMHx. of HTN, HLD, Multiple Myeloma(s/p Dexamethasone, 1 cycle of Velcade, and 1 cycle of RT), and Hx. of COVID infection presents from home after being visited by VNS and her home being deemed unsafe for her. Pt. was recently seen here and began treatment for Multiple Myeloma. Pt. was supposed to complete Palliative radiation therapy prior starting Revlimid. Pt. received 1 treatment of Radiation on Thursday. Pt. endorses chronic numbness in her fingers that worsened over the last couple of days. Pt. endorses L. groin dull pain that she has had prior to leaving the hospital during last admission. Pt. endorses a "funny feeling" in her feet that she describes as a pressure with burning 9/0 in severity that has also been nell g on for the last couple of days. Pt. denies any groin numbness or changes to her bowel habits. Pt. states that she does not have the appropriate bed, commode, or bathroom seat to be able to take care of herself. She is unable to cook, clean or take care of her household responsibilities by herself. Pt. states that it takes an hour to get out of bed and therefore she spends most of her time in bed or lying still. Pt. endorses dyspnea on exertion. PT. states that the pain in her lower back is precipitated by movement. REVIEW OF SYSTEMS: As above PHYSICAL EXAMINATION Vital Signs - 24 hr 01/19/20 01/19/20 01/19/20 18:14 20:02 20:30 Temperature 98.3 F Pulse Rate 86 Pulse Rate [ 80 82 Left] Respiratory 18 18 18 Rate Blood Pressure 198/98 H Blood Pressure 179/86 H 173/82 H [Left Arm] O2 Sat by Pulse 98 98 95 Oximetry (%) 01/19/20 01/19/20 01/19/20 21:00 21:05 22:00 Temperature Pulse Rate 80 Pulse Rate [ Left] Respiratory 18 Rate Blood Pressure 195/95 H Blood Pressure [Left Arm] O2 Sat by Pulse 95 95 Oximetry (%) 01/19/20 01/20/20 01/20/20 23:23 02:00 06:00 Temperature 98.1 F 98.7 F Pulse Rate 82 73 79 Pulse Rate [ Left] Respiratory 18 18 Rate Blood Pressure 158/85 151/84 150/76 Blood Pressure [Left Arm] O2 Sat by Pulse 96 94 L Oximetry (%) 01/20/20 01/20/20 01/20/20 09:00 10:00 14:00 Temperature 98.7 F 99.0 F Pulse Rate 82 82 Pulse Rate [ Left] Respiratory 18 20 Rate Blood Pressure 174/85 H 142/85 Blood Pressure [Left Arm] O2 Sat by Pulse 96 96 94 L Oximetry (%) GENERAL: The patient is awake, alert, and fully oriented, in no acute distress. HEAD: Normal with no signs of trauma. EYES:conjunctiva clear. ENT: Moist mucous membranes. LUNGS: Breath sounds equal, clear to auscultation bilaterally, no wheezes, no crackles, no accessory muscle use. HEART: Regular rate and rhythm, S1, S2 with systolic murmur ABDOMEN: Soft, nontender, nondistended, normoactive bowel sounds MUSCOLOSKELETAL: No point or paraspinal tenderness. EXTREMITIES: 2+ dorsal pedal pulses, warm, well-perfused, no calf tenderness, no edema. NEUROLOGICAL: Normal speech, gait not observed. Equal strength and sensation bilaterally. 5/5 strength throughout PSYCH: Normal mood, normal affect. SKIN: Warm, dry, normal turgor Laboratory Results - last 24 hr 01/19/20 01/19/20 01/19/20 17:18 17:18 17:18 WBC 7.3 RBC 3.21 L Hgb 9.5 L Hct 28.4 L MCV 88.4 MCH 29.5 MCHC 33.3 RDW 15.7 H Plt Count 236 D MPV 6.8 L Sodium 137 Potassium 3.6 Chloride 104 Carbon Dioxide 25 Anion Gap 9 BUN 18.3 H Creatinine 1.1 Est GFR (CKD-EPI)AfAm 58.50 Est GFR (CKD-EPI)NonAf 50.47 POC Glucometer Random Glucose 220 H Calcium 10.0 Phosphorus Magnesium Iron TIBC Iron Saturation Unsaturated IBC Total Bilirubin 0.3 AST 13 L ALT 16 Alkaline Phosphatase 101 Troponin I 0.04 Total Protein 8.6 H Albumin 3.0 L Urine Color Urine Appearance Urine pH Ur Specific [place] Urine Protein Urine Glucose (UA) Urine Ketones Urine Blood Urine Nitrite Urine Bilirubin Urine Urobilinogen Ur Leukocyte Esterase Urine WBC (Auto) Urine RBC (Auto) Urine Casts (Auto) U Epithel Cells (Auto) Urine Bacteria (Auto) Blood Type B POSITIVE Antibody Screen Negative 01/19/20 01/19/20 01/20/20 18:15 21:53 06:26 WBC RBC Hgb Hct MCV MCH MCHC RDW Plt Count MPV Sodium Potassium Chloride Carbon Dioxide Anion Gap BUN Creatinine Est GFR (CKD-EPI)AfAm Est GFR (CKD-EPI)NonAf POC Glucometer 238 167 Random Glucose Calcium Phosphorus Magnesium Iron TIBC Iron Saturation Unsaturated IBC Total Bilirubin AST ALT Alkaline Phosphatase Troponin I Total Protein Albumin Urine Color Yellow Urine Appearance Clear Urine pH 5.5 Ur Specific [place] 1.025 Urine Protein 3+ H Urine Glucose (UA) 3+ H Urine Ketones Negative Urine Blood 1+ H Urine Nitrite Negative Urine Bilirubin Negative Urine Urobilinogen 0.2 Ur Leukocyte Esterase Negative Urine WBC (Auto) 13 Urine RBC (Auto) 7 Urine Casts (Auto) 4 U Epithel Cells (Auto) 30 Urine Bacteria (Auto) 42 Blood Type Antibody Screen 01/20/20 01/20/20 01/20/20 07:13 08:11 08:11 WBC 7.1 RBC 3.10 L Hgb 9.0 L Hct 27.0 L MCV 86.9 MCH 29.0 MCHC 33.4 RDW 15.5 Plt Count 233 MPV 6.8 L Sodium 139 Potassium 3.1 L Chloride 104 Carbon Dioxide 25 Anion Gap 10 BUN 17.7 Creatinine 1.1 Est GFR (CKD-EPI)AfAm 58.50 Est GFR (CKD-EPI)NonAf 50.47 POC Glucometer Random Glucose 156 H Calcium 9.6 Phosphorus 2.6 Magnesium 1.8 Iron 64 TIBC 187 L Iron Saturation 34 Unsaturated IBC 123 L Total Bilirubin AST ALT Alkaline Phosphatase Troponin I Total Protein Albumin Urine Color Yellow Urine Appearance Clear Urine pH 6.0 Ur Specific [place] 1.019 Urine Protein 3+ H Urine Glucose (UA) 1+ H Urine Ketones Negative Urine Blood Trace Urine Nitrite Negative Urine Bilirubin Negative Urine Urobilinogen 0.2 Ur Leukocyte Esterase Negative Urine WBC (Auto) 11 Urine RBC (Auto) 7 Urine Casts (Auto) 3 U Epithel Cells (Auto) 27 Urine Bacteria (Auto) 62 Blood Type Antibody Screen 01/20/20 11:50 WBC RBC Hgb Hct MCV MCH MCHC RDW Plt Count MPV Sodium Potassium Chloride Carbon Dioxide Anion Gap BUN Creatinine Est GFR (CKD-EPI)AfAm Est GFR (CKD-EPI)NonAf POC Glucometer 226 Random Glucose Calcium Phosphorus Magnesium Iron TIBC Iron Saturation Unsaturated IBC Total Bilirubin AST ALT Alkaline Phosphatase Troponin I Total Protein Albumin Urine Color Urine Appearance Urine pH Ur Specific [place] Urine Protein Urine Glucose (UA) Urine Ketones Urine Blood Urine Nitrite Urine Bilirubin Urine Urobilinogen Ur Leukocyte Esterase Urine WBC (Auto) Urine RBC (Auto) Urine Casts (Auto) U Epithel Cells (Auto) Urine Bacteria (Auto) Blood Type Antibody Screen Active Medications Generic Name Dose Route Start Last Admin Trade Name Freq PRN Reason Stop Dose Admin Amlodipine Besylate 5 mg 01/20/20 10:00 01/20/20 10:15 Norvasc - PO 5 mg DAILY OTILIA Administration Atorvastatin Calcium 40 mg 01/20/20 22:00 Lipitor - PO HS OTILIA Enoxaparin Sodium 40 mg 01/20/20 10:00 01/20/20 10:16 Lovenox - SQ 40 mg DAILY OTILIA Administration Gabapentin 300 mg 01/20/20 06:00 01/20/20 14:34 Neurontin - PO 300 mg TID OTILIA Administration Insulin Aspart 1 vial 01/19/20 22:00 01/20/20 11:51 Novolog Vial Sliding Scale - SQ 4 units ACHS OTILIA Administration Protocol Lidocaine 1 patch 01/20/20 10:00 01/20/20 10:16 Lidoderm Patch - TP 1 patch DAILY OTILIA Administration Lisinopril 20 mg 01/20/20 22:00 Prinivil PO HS OTILIA Miscellaneous 1 each 01/20/20 22:00 Lidoderm Patch Removal MC DAILY@2200 COUNT [facility]CLUDES [facility] Oxycodone HCl 10 mg 01/20/20 09:34 Roxicodone - PO Q6H PRN PAIN LEVEL 6-10 Polyethylene Glycol 17 gm 01/20/20 01:00 Miralax (For Daily Use) - PO DAILY PRN CONSTIPATION Potassium Chloride 40 meq 01/20/20 10:00 01/20/20 10:15 K-Dur - PO 01/20/20 22:01 40 meq BID OTILIA Administration ASSESSMENT/PLAN: Pt. is a 69 y.o. F w/ PMHx. of HTN, HLD, Multiple Myeloma(s/p Dexamethasone, 1 cycle of Velcade, and 1 cycle of RT), and Hx. of COVID infection presents from home after being visited by VNS and her home being deemed unsafe for her. #Multiple Myeloma Pt. to complete RT prior to starting Revlimid(as outpatient) Pt. can receive Velcade if available as inpatient or can follow up outpatient to resume Radiation-Oncology and Social work consults appreciated for coordinating care and nursing services at home. monitor calcium levels, currently stable (Pt. received calcitonin and bisphosphnate therapy during last admission) DVT Ppx. with Lovenox Fall precautions Pt. would benefit from PT inpatient and outpatient. Dispo: We will continue to follow the patient. Thank you for this consultative opportunity. Visit type - Medication Review Med list reviewed for High Risk Meds patients 65 and older: Yes - Emergency Visit Emergency Visit: Yes ED Registration Date: 01/19/20 Care time: The patient presented to the Emergency Department on the above date and was hospitalized for further evaluation of their emergent condition. - New Patient This patient is new to me today: No - Critical Care Critical Care patient: No ATTENDING PHYSICIAN STATEMENT I saw and evaluated the patient. I reviewed the resident's note and discussed the case with the resident. I agree with the resident's findings and plan as documented. SUBJECTIVE: OBJECTIVE: ASSESSMENT AND PLAN:
--- NOTE | 2020-01-20 18:29 | PN ---
Physical Exam: SUBJECTIVE: Patient seen and examined Patient was examined at bed side. Patient endorses that she is here because she is not in any acute distress. Patient endorses that she does not have VNS, commode, and does not feel safe living at home. OBJECTIVE: Vital Signs Period Temp Pulse Resp BP Sys/Kerr Pulse Ox Last 24 Hr 98.1 F-99.0 F 73-86 18-20 142-198/76-98 93-98 GENERAL: The patient is awake, alert, and fully oriented, in no acute distress. HEAD: Normal with no signs of trauma. EYES: PERRL, extraocular movements intact, sclera anicteric, conjunctiva clear. No ptosis. ENT: Ears normal, nares patent, oropharynx clear without exudates, moist mucous membranes. NECK: Trachea midline, full range of motion, supple. LUNGS: Breath sounds equal, clear to auscultation bilaterally, no wheezes, no crackles, no accessory muscle use. HEART: Regular rate and rhythm, S1, S2 without murmur, rub or gallop. ABDOMEN: Soft, nontender, nondistended, normoactive bowel sounds, no guarding, no rebound, no hepatosplenomegaly, no masses. EXTREMITIES: 2+ pulses, warm, well-perfused, no edema. NEUROLOGICAL: Cranial nerves II through XII grossly intact. Normal speech, gait not observed. PSYCH: Normal mood, normal affect. SKIN: Warm, dry, normal turgor, no rashes or lesions noted Laboratory Results - last 24 hr 01/19/20 01/19/20 01/19/20 17:18 18:15 21:53 WBC RBC Hgb Hct MCV MCH MCHC RDW Plt Count MPV Sodium Potassium Chloride Carbon Dioxide Anion Gap BUN Creatinine Est GFR (CKD-EPI)AfAm Est GFR (CKD-EPI)NonAf POC Glucometer 238 Random Glucose Calcium Phosphorus Magnesium Iron TIBC Iron Saturation Unsaturated IBC Urine Color Yellow Urine Appearance Clear Urine pH 5.5 Ur Specific [place] 1.025 Urine Protein 3+ H Urine Glucose (UA) 3+ H Urine Ketones Negative Urine Blood 1+ H Urine Nitrite Negative Urine Bilirubin Negative Urine Urobilinogen 0.2 Ur Leukocyte Esterase Negative Urine WBC (Auto) 13 Urine RBC (Auto) 7 Urine Casts (Auto) 4 U Epithel Cells (Auto) 30 Urine Bacteria (Auto) 42 Blood Type B POSITIVE Antibody Screen Negative 01/20/20 01/20/20 01/20/20 06:26 07:13 08:11 WBC 7.1 RBC 3.10 L Hgb 9.0 L Hct 27.0 L MCV 86.9 MCH 29.0 MCHC 33.4 RDW 15.5 Plt Count 233 MPV 6.8 L Sodium Potassium Chloride Carbon Dioxide Anion Gap BUN Creatinine Est GFR (CKD-EPI)AfAm Est GFR (CKD-EPI)NonAf POC Glucometer 167 Random Glucose Calcium Phosphorus Magnesium Iron TIBC Iron Saturation Unsaturated IBC Urine Color Yellow Urine Appearance Clear Urine pH 6.0 Ur Specific [place] 1.019 Urine Protein 3+ H Urine Glucose (UA) 1+ H Urine Ketones Negative Urine Blood Trace Urine Nitrite Negative Urine Bilirubin Negative Urine Urobilinogen 0.2 Ur Leukocyte Esterase Negative Urine WBC (Auto) 11 Urine RBC (Auto) 7 Urine Casts (Auto) 3 U Epithel Cells (Auto) 27 Urine Bacteria (Auto) 62 Blood Type Antibody Screen 01/20/20 01/20/20 01/20/20 08:11 11:50 17:37 WBC RBC Hgb Hct MCV MCH MCHC RDW Plt Count MPV Sodium 139 Potassium 3.1 L Chloride 104 Carbon Dioxide 25 Anion Gap 10 BUN 17.7 Creatinine 1.1 Est GFR (CKD-EPI)AfAm 58.50 Est GFR (CKD-EPI)NonAf 50.47 POC Glucometer 226 175 Random Glucose 156 H Calcium 9.6 Phosphorus 2.6 Magnesium 1.8 Iron 64 TIBC 187 L Iron Saturation 34 Unsaturated IBC 123 L Urine Color Urine Appearance Urine pH Ur Specific [place] Urine Protein Urine Glucose (UA) Urine Ketones Urine Blood Urine Nitrite Urine Bilirubin Urine Urobilinogen Ur Leukocyte Esterase Urine WBC (Auto) Urine RBC (Auto) Urine Casts (Auto) U Epithel Cells (Auto) Urine Bacteria (Auto) Blood Type Antibody Screen Active Medications Generic Name Dose Route Start Last Admin Trade Name Freq PRN Reason Stop Dose Admin Amlodipine Besylate 5 mg 01/20/20 10:00 01/20/20 10:15 Norvasc - PO 5 mg DAILY OT[facility] Administration Atorvastatin Calcium 40 mg 01/20/20 22:00 Lipitor - PO HS OTILIA Enoxaparin Sodium 40 mg 01/20/20 10:00 01/20/20 10:16 Lovenox - SQ 40 mg DAILY OT[facility]IA Administration Gabapentin 300 mg 01/20/20 06:00 01/20/20 14:34 Neurontin - PO 300 mg TID OTILIA Administration Insulin Aspart 1 vial 01/19/20 22:00 01/20/20 17:40 Novolog Vial Sliding Scale - SQ 2 units ACHS OTILIA Administration Protocol Lidocaine 1 patch 01/20/20 10:00 01/20/20 10:16 Lidoderm Patch - TP 1 patch DAILY OT[facility] Administration Lisinopril 20 mg 01/20/20 22:00 Prinivil PO HS OTILIA Miscellaneous 1 each 01/20/20 22:00 Lidoderm Patch Removal MC DAILY@2200 OTILIA Oxycodone HCl 10 mg 01/20/20 09:34 Roxicodone - PO Q6H PRN PAIN LEVEL 6-10 Polyethylene Glycol 17 gm 01/20/20 01:00 Miralax (For Daily Use) - PO DAILY PRN CONSTIPATION Potassium Chloride 40 meq 01/20/20 10:00 01/20/20 10:15 K-Dur - PO 01/20/20 22:01 40 meq BID OTILIA Administration ASSESSMENT/PLAN: George is a 69F w a h/o recently diagnosed multiple myeloma seen by Dr. Lerma and started on radiation therapy, HTN, HLD, and DM who presented to the hospital for difficulty maintaining activities of daily living at home. The patient was recently admitted on 01/03/20 for vertebral compression fractures. # vertebral compression fractures - patient is unable to preform ADL at home - patients pain is managed via oxycodone - follows up with Dr. Lerma - palliative consultation placed #HTN - continuing HOME MED: - lisinopril - amlodipine - gabapentin #HLD - continuing HOME MED: - lipitor #DM2 - novolog sliding scale #DVT prophylaxis - Lovenox #living conditions at home -will speak to social work about living arrangements Visit type - Emergency Visit Emergency Visit: Yes ED Registration Date: 01/19/20 Care time: The patient presented to the Emergency Department on the above date and was hospitalized for further evaluation of their emergent condition. - New Patient This patient is new to me today: Yes Date on this admission: 01/20/20 - Critical Care Critical Care patient: No - Discharge Referral Referred to [facility] Med P.C.: No ATTENDING PHYSICIAN STATEMENT I saw and evaluated the patient. I reviewed the resident's note and discussed the case with the resident. I agree with the resident's findings and plan as documented. SUBJECTIVE: OBJECTIVE: ASSESSMENT AND PLAN:
[2020-01-20] MEDS ORDERED: INSULIN (NOVOLOG) ASPART 100 UNITS/ML 10ML VIAL ONE (21:08)
[2020-01-20] MEDS: LISINOPRIL 20 MG TABLET (FP) PO SCH (21:19)
[2020-01-20] MEDS: ATORVASTATIN CA 40 MG TABLET (FP) PO SCH (21:19)
[2020-01-20] MEDS: oxyCODONE HCL 5 MG TABLET PO PRN (21:28)
[2020-01-20] MEDS: LIDOCAINE PATCH REMOVAL MC SCH (21:29)
[2020-01-20] MEDS ORDERED: LIDOCAINE PATCH REMOVAL MC SCH (22:00)
[2020-01-21] MEDS: INSULIN SLIDING SCALE (NOVOLOG) 1 VIAL SQ SCH ×4 (06:44→21:47)
[2020-01-21] MEDS: GABAPENTIN 300 MG CAPSULE PO SCH ×3 (06:44→21:47)
[2020-01-21 08:49] LABS: HEMATOCRIT 30.5 % (32.4-45.2); MCH 29.3 pg (25.7-33.7); MCHC 32.9 g/dl (32.0-36.0); MEAN CELL VOLUME 89.1 fl (80-96); MEAN PLT VOLUME 6.9 fl (7.5-11.1); PLATELET COUNT 247 K/MM3 (134-434); RBC 3.43 M/mm3 (3.60-5.2); RDW 15.9 % (11.6-15.6); WHITE BLOOD COUNT 7.5 K/mm3 (4.0-10.0)
[2020-01-21 09:13] LABS: CALCIUM 10.1 mg/dL (8.5-10.1); CREATININE 1.5 mg/dL (0.55-1.3); MAGNESIUM 2.2 mg/dL (1.8-2.4); POTASSIUM 4.2 mmol/L (3.5-5.1)
[2020-01-21] MEDS: LIDOCAINE 5% TOPICAL PATCH TP SCH (09:16)
[2020-01-21] MEDS: ENOXAPARIN NA (PORCINE) 40 MG/0.4 ML DISP.SYRIN SQ SCH (09:16)
[2020-01-21] MEDS: amLODIPine BESYLATE 5 MG TABLET (FP) PO SCH (09:16)
[2020-01-21] MEDS: oxyCODONE HCL 5 MG TABLET PO PRN (09:17)
[2020-01-21] MEDS ORDERED: SODIUM CHLORIDE 1,000 ML IV SCH (10:30)
--- NOTE | 2020-01-21 12:16 | PN ---
Teaching Attending Note Name of Resident: Christian Garcia ATTENDING PHYSICIAN STATEMENT I saw and evaluated the patient. I reviewed the resident's note and discussed the case with the resident. I agree with the resident's findings and plan as documented. ASSESSMENT AND PLAN: Pt. is a 69 y.o. F w/ PMHx. of HTN, HLD, Multiple Myeloma on velcade/dex/RT, and Hx. of COVID infection presents from home after being visited by VNS . Pt. was recently seen here and began treatment for Multiple Myeloma and was discharged with outpatient RT/medonc follow up continues to have back pain PHYSICAL EXAMINATION Vital Signs - 24 hr 01/19/20 01/19/20 01/19/20 18:14 20:02 20:30 Temperature 98.3 F Pulse Rate 86 Pulse Rate [ 80 82 Left] Respiratory 18 18 18 Rate Blood Pressure 198/98 H Blood Pressure 179/86 H 173/82 H [Left Arm] O2 Sat by Pulse 98 98 95 Oximetry (%) 01/19/20 01/19/20 01/19/20 21:00 21:05 22:00 Temperature Pulse Rate 80 Pulse Rate [ Left] Respiratory 18 Rate Blood Pressure 195/95 H Blood Pressure [Left Arm] O2 Sat by Pulse 95 95 Oximetry (%) 01/19/20 01/20/20 01/20/20 23:23 02:00 06:00 Temperature 98.1 F 98.7 F Pulse Rate 82 73 79 Pulse Rate [ Left] Respiratory 18 18 Rate Blood Pressure 158/85 151/84 150/76 Blood Pressure [Left Arm] O2 Sat by Pulse 96 94 L Oximetry (%) 01/20/20 01/20/20 01/20/20 09:00 10:00 14:00 Temperature 98.7 F 99.0 F Pulse Rate 82 82 Pulse Rate [ Left] Respiratory 18 20 Rate Blood Pressure 174/85 H 142/85 Blood Pressure [Left Arm] O2 Sat by Pulse 96 96 94 L Oximetry (%) Cor: RSR, No murmurs, No gallops Lungs: Clear to P&A Abd: Soft, Normal bowel sounds, No organomegaly Ext:No significant edema Abnormal Lab Results 01/21/20 01/21/20 07:27 07:27 RBC 3.43 L Hgb 10.0 L Hct 30.5 L RDW 15.9 H MPV 6.9 L BUN 27.0 H Creatinine 1.5 H Random Glucose 163 H Active Medications Amlodipine Besylate (Norvasc -) 5 mg PO DAILY [facility] Last Admin: 01/21/20 09:16 Dose: 5 mg Documented by: Atorvastatin Calcium (Lipitor -) 40 mg PO HS [facility] Last Admin: 01/20/20 21:19 Dose: 40 mg Documented by: Enoxaparin Sodium (Lovenox -) 40 mg SQ DAILY [facility] Last Admin: 01/21/20 09:16 Dose: 40 mg Documented by: Gabapentin (Neurontin -) 300 mg PO TID [facility] Last Admin: 01/21/20 06:44 Dose: 300 mg Documented by: Sodium Chloride (Normal Saline -) 1,000 mls @ 250 mls/hr IV ASDIR [facility] Stop: 01/21/20 14:29 Last Admin: 01/21/20 11:39 Dose: 250 mls/hr Documented by: Insulin Aspart (Novolog Vial Sliding Scale -) 1 vial SQ [facility]; Protocol Last Admin: 01/21/20 11:37 Dose: 6 units Documented by: Lidocaine (Lidoderm Patch -) 1 patch TP DAILY [facility] Last Admin: 01/21/20 09:16 Dose: 1 patch Documented by: Lisinopril (Prinivil) 20 mg PO [facility] Last Admin: 01/20/20 21:19 Dose: 20 mg Documented by: Miscellaneous (Lidoderm Patch Removal) 1 each MC DAILY@2200 [facility] Last Admin: 01/20/20 21:29 Dose: 1 each Documented by: Oxycodone HCl (Roxicodone -) 10 mg PO Q6H PRN PRN Reason: PAIN LEVEL 6-10 Last Admin: 01/21/20 09:17 Dose: 10 mg Documented by: Polyethylene Glycol (Miralax (For Daily Use) -) 17 gm PO DAILY PRN PRN Reason: CONSTIPATION ASSESSMENT/PLAN: Pt. is a 69 y.o. F w/ PMHx. of HTN, HLD, Multiple Myeloma(s/p Dexamethasone, 1 cycle of Velcade, and 1 cycle of RT), and Hx. 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
[2020-01-21] MEDS ORDERED: DEXAMETHASONE SOD PHOSPHATE 20 MG/5 ML VIAL IVPB ONE (12:28)
[2020-01-21] MEDS ORDERED: DEXAMETHASONE SOD PHOSPHATE 10 MG/1 ML VIAL IVPB ONE (13:30)
[2020-01-21] MEDS ORDERED: PT OWN MED DRAWER 7, Y5N ONE (14:23)
[2020-01-21] MEDS: PANTOPRAZOLE 40 MG TABLET PO SCH (14:29)
[2020-01-21 15:38] LABS: BLOOD UREA NITROGEN 31.6 mg/dL (7-18); CALCIUM 9.4 mg/dL (8.5-10.1); CREATININE 1.5 mg/dL (0.55-1.3); POTASSIUM 4.3 mmol/L (3.5-5.1)
--- NOTE | 2020-01-21 16:16 | PN.HO ---
Progress Note (short form) - Note Progress Note: ASSESSMENT AND PLAN: Pt. is a 69 y.o. lady w/ PMHx. of HTN, HLD, Multiple Myeloma on velcade/dex/RT, and Hx. of COVID infection presents from home after being visited by VNS . Pt. was recently seen here and began treatment for Multiple Myeloma and was di scharged with outpatient RT/medonc follow up 01/20: continues to have back pain and R back pain but under control PHYSICAL EXAMINATION Last Vital Signs Temp Pulse Resp BP Pulse Ox 98.5 F 81 18 148/77 92 L 01/21/20 14:00 01/21/20 14:00 01/21/20 14:00 01/21/20 14:00 01/21/20 14:00 Cor: RSR, No murmurs, No gallops Lungs: Clear to P&A Abd: Soft, Normal bowel sounds, No organomegaly Ext:No significant edema 01/21/20 07:27 01/21/20 15:00 Active Medications Amlodipine Besylate (Norvasc -) 5 mg PO DAILY [facility] Last Admin: 01/21/20 09:16 Dose: 5 mg Documented by: Atorvastatin Calcium (Lipitor -) 40 mg PO HS [facility] Last Admin: 01/20/20 21:19 Dose: 40 mg Documented by: Enoxaparin Sodium (Lovenox -) 40 mg SQ DAILY [facility] Last Admin: 01/21/20 09:16 Dose: 40 mg Documented by: Gabapentin (Neurontin -) 300 mg PO TID [facility] Last Admin: 01/21/20 06:44 Dose: 300 mg Documented by: Sodium Chloride (Normal Saline -) 1,000 mls @ 250 mls/hr IV ASDIR [facility] Stop: 01/21/20 14:29 Last Admin: 01/21/20 11:39 Dose: 250 mls/hr Documented by: Insulin Aspart (Novolog Vial Sliding Scale -) 1 vial SQ ACHS [facility]; Protocol Last Admin: 01/21/20 11:37 Dose: 6 units Documented by: Lidocaine (Lidoderm Patch -) 1 patch TP DAILY [facility] Last Admin: 01/21/20 09:16 Dose: 1 patch Documented by: Lisinopril (Prinivil) 20 mg PO HS [facility] Last Admin: 01/20/20 21:19 Dose: 20 mg Documented by: Miscellaneous (Lidoderm Patch Removal) 1 each MC DAILY@2200 [facility] Last Admin: 01/20/20 21:29 Dose: 1 each Documented by: Oxycodone HCl (Roxicodone -) 10 mg PO Q6H PRN PRN Reason: PAIN LEVEL 6-10 Last Admin: 01/21/20 09:17 Dose: 10 mg Documented by: Polyethylene Glycol (Miralax (For Daily Use) -) 17 gm PO DAILY PRN PRN Reason: CONSTIPATION ASSESSMENT/PLAN: Pt. is a 69 y.o. F w/ PMHx. of HTN, HLD, Multiple Myeloma(s/p Dexamethasone, 1 cycle of Velcade, and 1 cycle of RT), and Hx. 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
--- NOTE | 2020-01-21 16:34 | PN ---
Teaching Attending Note Name of Resident: Danyel Zheng ATTENDING PHYSICIAN STATEMENT I saw and evaluated the patient. I reviewed the resident's note and discussed the case with the resident. I agree with the resident's findings and plan as documented. SUBJECTIVE: Complains of difficulty ambulating/performing ADLs. No fever/chills. No cough/sputum. OBJECTIVE: Afebrile, Hemodynamically Stable. Last Vital Signs Temp Pulse Resp BP Pulse Ox 98.5 F 81 18 148/77 92 L 01/21/20 14:00 01/21/20 14:00 01/21/20 14:00 01/21/20 14:00 01/21/20 14:00 Heart - S1, S2, RRR Lungs - clear to auscultation Abdomen - Soft, non-tender. Bowel Sounds normal. Extremities - no calf tenderness. Neuro - AAO x 3. Tone/Power normal all extremities. Laboratory Results - last 24 hr 01/19/20 01/20/20 01/20/20 20:00 17:37 21:14 WBC RBC Hgb Hct MCV MCH MCHC RDW Plt Count MPV Sodium Potassium Chloride Carbon Dioxide Anion Gap BUN Creatinine Est GFR (CKD-EPI)AfAm Est GFR (CKD-EPI)NonAf POC Glucometer 175 236 Random Glucose Calcium Phosphorus Magnesium COVID-19 (TOM) Not detected 01/21/20 01/21/20 01/21/20 06:39 07:27 07:27 WBC 7.5 RBC 3.43 L Hgb 10.0 L Hct 30.5 L MCV 89.1 MCH 29.3 MCHC 32.9 RDW 15.9 H Plt Count 247 MPV 6.9 L Sodium 138 Potassium 4.2 Chloride 103 Carbon Dioxide 24 Anion Gap 12 BUN 27.0 H Creatinine 1.5 H Est GFR (CKD-EPI)AfAm 40.20 Est GFR (CKD-EPI)NonAf 34.69 POC Glucometer 187 Random Glucose 163 H Calcium 10.1 Phosphorus 3.0 Magnesium 2.2 COVID-19 (TOM) 01/21/20 01/21/20 11:35 15:00 WBC RBC Hgb Hct MCV MCH MCHC RDW Plt Count MPV Sodium 137 Potassium 4.3 Chloride 104 Carbon Dioxide 23 Anion Gap 9 BUN 31.6 H Creatinine 1.5 H Est GFR (CKD-EPI)AfAm 40.20 Est GFR (CKD-EPI)NonAf 34.69 POC Glucometer 262 Random Glucose 210 H Calcium 9.4 Phosphorus Magnesium COVID-19 (TOM) Current Medications Generic Name Dose Route Start Last Admin Trade Name Freq PRN Reason Stop Dose Admin Amlodipine Besylate 5 mg 01/20/20 10:00 01/21/20 09:16 Norvasc - PO 5 mg DAILY OTILIA Administration Atorvastatin Calcium 40 mg 01/20/20 22:00 01/20/20 21:19 Lipitor - PO 40 mg HS OTILIA Administration Enoxaparin Sodium 40 mg 01/20/20 10:00 01/21/20 09:16 Lovenox - SQ 40 mg DAILY OTILIA Administration Gabapentin 300 mg 01/20/20 06:00 01/21/20 14:29 Neurontin - PO 300 mg TID OTILIA Administration Insulin Aspart 1 vial 01/19/20 22:00 01/21/20 11:37 Novolog Vial Sliding Scale - SQ 6 units ACHS OTILIA Administration Protocol Lidocaine 1 patch 01/20/20 10:00 01/21/20 09:16 Lidoderm Patch - TP 1 patch DAILY OTILIA Administration Lisinopril 20 mg 01/20/20 22:00 01/20/20 21:19 Prinivil PO 20 mg HS OT[facility] Administration Miscellaneous 1 each 01/20/20 22:00 01/20/20 21:29 Lidoderm Patch Removal MC 1 each DAILY@2200 OT[facility] Administration Oxycodone HCl 10 mg 01/20/20 09:34 01/21/20 09:17 Roxicodone - PO 10 mg Q6H PRN Administration PAIN LEVEL 6-10 Pantoprazole Sodium 40 mg 01/21/20 12:30 01/21/20 14:29 Protonix - PO 40 mg DAILY OTILIA Administration Polyethylene Glycol 17 gm 01/20/20 01:00 Miralax (For Daily Use) - PO DAILY PRN CONSTIPATION Home Medications Medication Instructions Recorded Atorvastatin Ca [Lipitor] 40 mg PO HS 06/15/17 Metoprolol Succinate [Toprol Xl] 50 mg PO DAILY 06/15/17 Sitagliptin Phos/Metformin HCl 50 - 1,000 mg PO BID 06/15/17 [Janumet 50-1,000 mg Tablet] Aspirin Coated [Ecotrin -] 81 mg PO DAILY 07/02/17 Allopurinol 300 mg PO DAILY 01/05/20 Docusate Sodium [Colace -] 100 mg PO BID 30 Days #60 capsule 01/14/20 Lidocaine Patch Removal [Lidoderm 1 each MC DAILY@2200 each 01/14/20 Patch Removal] oxyCODONE HCL [Oxycodone HCl] 5 mg PO Q4H PRN #30 tablet MDD 3 01/14/20 pills Acetaminophen [Tylenol -] 1,000 mg PO Q8H 01/20/20 Amlodipine Besylate/Benazepril 5 - 10 mg PO DAILY 01/20/20 [Lotrel 5-10 mg Capsule] Ergocalciferol (Vitamin D2) 50,000 unit PO WEEKLY 01/20/20 [Vitamin D2] Gabapentin 300 mg PO TID 01/20/20 Valacyclovir HCl [Valacyclovir] 500 mg PO DAILY 01/20/20 ASSESSMENT AND PLAN: 69 year old female with history of HTN, HLD, DM 2, Multiple Myeloma (s/p Dexamethasone, 1 cycle of Velcade, and 1 cycle of RT), presents to ED with complaints of weakness and inability to perform ADLs. Recently admitted 01/03/2020 for multiple fractures at T11, L4-L5 w/ no spinal cord impingement & hypercalcemia of 13.4. 1. Back Pain - secondary to pathologic T/L fractures s/p Velcade/Dex 01/08, Zometa 01/02 Scheduled for Radiation therapy with Dr Canales Further management as per Oncology including redosing IV Dexa. PT Oxycodone PRN for pain, Gabapentin. 2. LUDMILA ? sec to MM Seen by H/O - redosing Dexa 20mg x 2 days Nephrology to follow. Will order Renal US. 3. HTN - Continue Lisinopril, Amlodipine, Metoprolol. 4. DM 2 - Janumet held. Novolog sliding scale. 5. HLD - continue Lipitor. DVT Px - Lovenox SQ
--- NOTE | 2020-01-21 17:54 | PN ---
Physical Exam: SUBJECTIVE: Patient seen and examined. Afebrile and asymptomatic. no acute events overnight OBJECTIVE: Vital Signs Period Temp Pulse Resp BP Sys/Kerr Pulse Ox Last 24 Hr 98 F-98.7 F 67-93 18-20 137-183/68-87 92-96 GENERAL: The patient is awake, alert, and fully oriented, in no acute distress. EYES: PERRL, extraocular movements intact, sclera anicteric, ENT: moist mucous membranes. NECK: Trachea midline, full range of motion, supple. LUNGS: Breath sounds equal, clear to auscultation bilaterally, no wheezes, no crackles, HEART: Regular rate and rhythm, S1, S2 without murmur, rub or gallop. ABDOMEN: Soft, nontender, nondistended, normoactive bowel sounds, no guarding, EXTREMITIES: 2+ pulses, warm, well-perfused, no edema. NEUROLOGICAL: Normal speech, gait bit unstable PSYCH: Normal mood, normal affect. SKIN: Warm, dry, normal turgor, no rashes or lesions noted Laboratory Results - last 24 hr 01/19/20 01/20/20 01/21/20 20:00 21:14 06:39 WBC RBC Hgb Hct MCV MCH MCHC RDW Plt Count MPV Sodium Potassium Chloride Carbon Dioxide Anion Gap BUN Creatinine Est GFR (CKD-EPI)AfAm Est GFR (CKD-EPI)NonAf POC Glucometer 236 187 Random Glucose Calcium Phosphorus Magnesium COVID-19 (TOM) Not detected 01/21/20 01/21/20 01/21/20 07:27 07:27 11:35 WBC 7.5 RBC 3.43 L Hgb 10.0 L Hct 30.5 L MCV 89.1 MCH 29.3 MCHC 32.9 RDW 15.9 H Plt Count 247 MPV 6.9 L Sodium 138 Potassium 4.2 Chloride 103 Carbon Dioxide 24 Anion Gap 12 BUN 27.0 H Creatinine 1.5 H Est GFR (CKD-EPI)AfAm 40.20 Est GFR (CKD-EPI)NonAf 34.69 POC Glucometer 262 Random Glucose 163 H Calcium 10.1 Phosphorus 3.0 Magnesium 2.2 COVID-19 (TOM) 01/21/20 01/21/20 15:00 16:42 WBC RBC Hgb Hct MCV MCH MCHC RDW Plt Count MPV Sodium 137 Potassium 4.3 Chloride 104 Carbon Dioxide 23 Anion Gap 9 BUN 31.6 H Creatinine 1.5 H Est GFR (CKD-EPI)AfAm 40.20 Est GFR (CKD-EPI)NonAf 34.69 POC Glucometer 234 Random Glucose 210 H Calcium 9.4 Phosphorus Magnesium COVID-19 (TOM) Active Medications Generic Name Dose Route Start Last Admin Trade Name Freq PRN Reason Stop Dose Admin Amlodipine Besylate 5 mg 01/20/20 10:00 01/21/20 09:16 Norvasc - PO 5 mg DAILY [facility] Administration Atorvastatin Calcium 40 mg 01/20/20 22:00 01/20/20 21:19 Lipitor - PO 40 mg HS [facility] Administration Enoxaparin Sodium 40 mg 01/20/20 10:00 01/21/20 09:16 Lovenox - SQ 40 mg DAILY [facility] Administration Gabapentin 300 mg 01/20/20 06:00 01/21/20 14:29 Neurontin - PO 300 mg TID [facility] Administration Insulin Aspart 1 vial 01/19/20 22:00 01/21/20 16:50 Novolog Vial Sliding Scale - SQ 4 units ACHS [facility] Administration Protocol Lidocaine 1 patch 01/20/20 10:00 01/21/20 09:16 Lidoderm Patch - TP 1 patch DAILY [facility] Administration Lisinopril 20 mg 01/20/20 22:00 01/20/20 21:19 Prinivil PO 20 mg HS [facility] Administration Miscellaneous 1 each 01/20/20 22:00 01/20/20 21:29 Lidoderm Patch Removal MC 1 each DAILY@2200 [facility] Administration Oxycodone HCl 10 mg 01/20/20 09:34 01/21/20 09:17 Roxicodone - PO 10 mg Q6H PRN Administration PAIN LEVEL 6-10 Pantoprazole Sodium 40 mg 01/21/20 12:30 01/21/20 14:29 Protonix - PO 40 mg DAILY [facility] Administration Polyethylene Glycol 17 gm 01/20/20 01:00 Miralax (For Daily Use) - PO DAILY PRN CONSTIPATION ASSESSMENT/PLAN: 69F w a h/o recently diagnosed multiple myeloma seen by Dr. Lerma and started on radiation therapy, HTN, HLD, and DM who presented to the hospital for back pain difficulty maintaining activities of daily living at home and weakness. Recent admission on 01/03/20 for vertebral compression fractures w/ no spinal cord impingement & hypercalcemia of 13.4. #Difficulty with ADL's duet to Back Pain - 2/2 to pathologic T/L fractures s/p Velcade/Dex 01/08, Zometa 01/02 Scheduled for Radiation therapy with Dr Canales, unable to meet appt yesterday due to hospitalization Oncology recom will redose dexamethasone 20mg x 2 days / protonix PT Oxycodone PRN for pain, Gabapentin. #New LUDMILA likely 2/2 to worsening MM/disease progression Nephrology to follow. Will order Renal US. #HTN Lisinopril, Amlodipine, Metoprolol. #DM 2 Janumet held. Novolog sliding scale. #HLD continue Lipitor. DVT Px - Lovenox SQ Dispo: cont to monitor renal fxn, will need nephrology to weight in on worsening renal fxn Visit type - Emergency Visit Emergency Visit: Yes ED Registration Date: 01/19/20 Care time: The patient presented to the Emergency Department on the above date and was hospitalized for further evaluation of their emergent condition. - New Patient This patient is new to me today: Yes Date on this admission: 01/21/20 - Critical Care Critical Care patient: No - Discharge Referral Referred to [facility] Med P.C.: No ATTENDING PHYSICIAN STATEMENT I saw and evaluated the patient. I reviewed the resident's note and discussed the case with the resident. I agree with the resident's findings and plan as documented. SUBJECTIVE: OBJECTIVE: ASSESSMENT AND PLAN:
[2020-01-21] MEDS ORDERED: INSULIN (NOVOLOG) ASPART 100 UNITS/ML 10ML VIAL ONE (21:16)
[2020-01-21] MEDS: LISINOPRIL 20 MG TABLET (FP) PO SCH (21:47)
[2020-01-21] MEDS: ATORVASTATIN CA 40 MG TABLET (FP) PO SCH (21:47)
[2020-01-21] MEDS: LIDOCAINE PATCH REMOVAL MC SCH (21:55)
[2020-01-22] MEDS ORDERED: INSULIN (LEVEMIR) 100 UNITS/ML UNITS SQ ONE ×2 (00:02→19:41)
[2020-01-22] MEDS: INSULIN SLIDING SCALE (NOVOLOG) 1 VIAL SQ SCH ×4 (06:19→21:43)
[2020-01-22] MEDS: oxyCODONE HCL 5 MG TABLET PO PRN (06:19)
[2020-01-22] MEDS: GABAPENTIN 300 MG CAPSULE PO SCH ×3 (06:19→21:43)
[2020-01-22 08:55] LABS: HEMATOCRIT 28.4 % (32.4-45.2); HEMOGLOBIN 9.3 GM/dL (10.7-15.3); MCH 28.6 pg (25.7-33.7); MCHC 32.6 g/dl (32.0-36.0); MEAN CELL VOLUME 87.8 fl (80-96); MEAN PLT VOLUME 7.2 fl (7.5-11.1); PLATELET COUNT 265 K/MM3 (134-434); RBC 3.24 M/mm3 (3.60-5.2); RDW 15.3 % (11.6-15.6); WHITE BLOOD COUNT 16.7 K/mm3 (4.0-10.0)
[2020-01-22] MEDS: PANTOPRAZOLE 40 MG TABLET PO SCH (09:19)
[2020-01-22] MEDS: ENOXAPARIN NA (PORCINE) 40 MG/0.4 ML DISP.SYRIN SQ SCH (09:19)
[2020-01-22] MEDS: amLODIPine BESYLATE 5 MG TABLET (FP) PO SCH (09:19)
[2020-01-22] MEDS: INSULIN (LEVEMIR) 100 UNITS/ML UNITS SQ SCH (09:19)
[2020-01-22] MEDS: LIDOCAINE 5% TOPICAL PATCH TP SCH (09:26)
[2020-01-22 09:31] LABS: ALBUMIN 2.9 g/dl (3.4-5.0); BILIRUBIN,TOTAL 0.4 mg/dL (0.2-1); BLOOD UREA NITROGEN 40.7 mg/dL (7-18); CALCIUM 9.7 mg/dL (8.5-10.1); CREATININE 1.7 mg/dL (0.55-1.3); MAGNESIUM 2.1 mg/dL (1.8-2.4); PHOSPHOROUS 3.1 mg/dL (2.5-4.9); POTASSIUM 4.1 mmol/L (3.5-5.1)
--- NOTE | 2020-01-22 12:47 | CON.NEP ---
Consult Consult Specialty:: Nephrology Referred by:: dr long Reason for Consultation:: ludmila - History of Present Illness Chief Complaint: MM and bone mets History of Present Illness: 69 year old female with history of HTN, HLD, DM 2, Multiple Myeloma (s/p Dexamethasone, 1 cycle of Velcade, and 1 cycle of RT), presents to ED with complaints of weakness and inability to perform ADLs. s/p HOsp 01/03/2020 -multiple fractures at T11, L4-L5 no spinal cord impingement s/p hypercalcemia of 13.4. - History Source History Provided By: Medical Record Limitations to Obtaining History: Clinical Condition - Past Medical History Cardio/Vascular: Yes: HTN, Hyperlipdemia Endocrine: Yes: Diabetes Mellitus - Past Surgical History Past Surgical History: Yes: Cholecystectomy - Alcohol/Substance Use Hx Alcohol Use: No History of Substance Use: reports: None - Smoking History Smoking history: Never smoked Have you smoked in the past 12 months: No - Social History Usual Living Arrangement: Alone Home Medications - Allergies Allergies/Adverse Reactions: Allergies Allergy/AdvReac Type Severity Reaction Status Date / Time No Known Allergies Allergy Verified 01/03/20 10:49 - Home Medications Home Medications: Ambulatory Orders Atorvastatin Ca [Lipitor] 40 mg PO HS 06/15/17 Metoprolol Succinate [Toprol Xl] 50 mg PO DAILY 06/15/17 Sitagliptin Phos/Metformin HCl [Janumet 50-1,000 mg Tablet] 50 - 1,000 mg PO BID 06/15/17 Aspirin Coated [Ecotrin -] 81 mg PO DAILY 07/02/17 Allopurinol 300 mg PO DAILY 01/05/20 Docusate Sodium [Colace -] 100 mg PO BID 30 Days #60 capsule 01/14/20 Lidocaine Patch Removal [Lidoderm Patch Removal] 1 each MC DAILY@2200 each 01/14/20 oxyCODONE HCL [Oxycodone HCl] 5 mg PO Q4H PRN #30 tablet MDD 3 pills 01/14/20 Acetaminophen [Tylenol -] 1,000 mg PO Q8H 01/20/20 Amlodipine Besylate/Benazepril [Lotrel 5-10 mg Capsule] 5 - 10 mg PO DAILY 01/20/20 Ergocalciferol (Vitamin D2) [Vitamin D2] 50,000 unit PO WEEKLY 01/20/20 Gabapentin 300 mg PO TID 01/20/20 Valacyclovir HCl [Valacyclovir] 500 mg PO DAILY 01/20/20 Nephrology Consult - Height Height: 5 ft 6 in - Weight Weight: 139 lb - BMI Body Mass Index (BMI): 22.4 - Lab Results CBC,BMP: CBC, BMP 01/22/20 08:38 01/22/20 08:38 Anion Gap: Anion Gap Anion Gap 11 MMOL/L (8-16) 01/22/20 08:38 - Physical Examination Vital Signs: Vital Signs Temperature 97.9 F 01/22/20 06:00 Pulse Rate 92 H 01/22/20 09:15 Respiratory Rate 18 01/22/20 09:15 Blood Pressure 156/72 01/22/20 09:15 O2 Sat by Pulse Oximetry (%) 94 L 01/22/20 09:15 Constitutional: Yes: Well Nourished, No Distress, Calm Eyes: Yes: WNL, Conjunctiva Clear, EOM Intact HENT: Yes: WNL, Atraumatic, Normocephalic Neck: Yes: WNL, Supple, Trachea Midline Cardiovascular: Yes: WNL Respiratory: Yes: WNL Gastrointestinal: Yes: WNL Renal/: Yes: WNL Musculoskeletal: Yes: WNL Extremities: Yes: WNL Edema: No Peripheral Pulses WNL: Yes Integumentary: Yes: WNL Neurological: Yes: WNL, Alert, Oriented Psychiatric: Yes: WNL, Alert, Oriented Assessment/Plan LUDMILA probably prerenal 2/2 decreased fluid intake urine is concentrated proteinuria may be indicative of renal involvement of MM and or DM and chronic HTN -Back Pain /pathologic T/L fractures s/p Velcade/Dex 01/08, s/p hypercalcemia received Zometa 01/02 -HTN - on Lisinopril, Amlodipine, Metoprolol. -DM 2 - Janumet on hold Novolog -HLD - continue Lipitor. Plan- agree with IVF NS follow labs
--- NOTE | 2020-01-22 14:00 | CONSULT ---
Consult Consult Specialty:: Pain management Reason for Consultation:: Back pain - History of Present Illness Chief Complaint: Back pain , difficulty in walking History of Present Illness: 69 yr old female with back pain s/p Compression fracture multilevel. I also saw her on her last visit. She was evaluated by Dr. Escamilla on last visit, not a good candidate for vertebroplasty. Her pain 0-8/10 . non radiating . She was advised ti use TLSO on her last visit. Pain medication is helping. - History Source History Provided By: Patient Limitations to Obtaining History: No Limitations - Past Medical History Cardio/Vascular: Yes: HTN, Hyperlipdemia Endocrine: Yes: Diabetes Mellitus - Past Surgical History Past Surgical History: Yes: Cholecystectomy - Alcohol/Substance Use Hx Alcohol Use: No History of Substance Use: reports: None - Smoking History Smoking history: Never smoked Have you smoked in the past 12 months: No - Social History Usual Living Arrangement: Alone Home Medications - Allergies Allergies/Adverse Reactions: Allergies Allergy/AdvReac Type Severity Reaction Status Date / Time No Known Allergies Allergy Verified 01/03/20 10:49 - Home Medications Home Medications: Ambulatory Orders Atorvastatin Ca [Lipitor] 40 mg PO HS 06/15/17 Metoprolol Succinate [Toprol Xl] 50 mg PO DAILY 06/15/17 Sitagliptin Phos/Metformin HCl [Janumet 50-1,000 mg Tablet] 50 - 1,000 mg PO BID 06/15/17 Aspirin Coated [Ecotrin -] 81 mg PO DAILY 07/02/17 Allopurinol 300 mg PO DAILY 01/05/20 Docusate Sodium [Colace -] 100 mg PO BID 30 Days #60 capsule 01/14/20 Lidocaine Patch Removal [Lidoderm Patch Removal] 1 each MC DAILY@2200 each 01/14/20 oxyCODONE HCL [Oxycodone HCl] 5 mg PO Q4H PRN #30 tablet MDD 3 pills 01/14/20 Acetaminophen [Tylenol -] 1,000 mg PO Q8H 01/20/20 Amlodipine Besylate/Benazepril [Lotrel 5-10 mg Capsule] 5 - 10 mg PO DAILY 01/20/20 Ergocalciferol (Vitamin D2) [Vitamin D2] 50,000 unit PO WEEKLY 01/20/20 Gabapentin 300 mg PO TID 01/20/20 Valacyclovir HCl [Valacyclovir] 500 mg PO DAILY 01/20/20 Review of Systems - Review of Systems Constitutional: reports: No Symptoms Eyes: reports: No Symptoms HENT: reports: No Symptoms Neck: reports: No Symptoms Cardiovascular: reports: No Symptoms Respiratory: reports: No Symptoms Gastrointestinal: reports: No Symptoms Musculoskeletal: reports: Back Pain Neurological: reports: No Symptoms Endocrine: reports: No Symptoms Physical Exam Vital Signs: Vital Signs Temperature 97.9 F 01/22/20 06:00 Pulse Rate 92 H 01/22/20 09:15 Respiratory Rate 18 01/22/20 09:15 Blood Pressure 156/72 01/22/20 09:15 O2 Sat by Pulse Oximetry (%) 94 L 01/22/20 09:15 Constitutional: Yes: Well Nourished Eyes: Yes: WNL HENT: Yes: WNL Neck: Yes: WNL Musculoskeletal: Yes: Back Pain, Muscle Weakness Extremities: Yes: WNL Edema: No Neurological: Yes: WNL ...Motor Strength: WNL Labs: CBC, BMP 01/22/20 08:38 01/22/20 08:38 Active Medications Generic Name Dose Route Start Last Admin Trade Name Manuelq PRN Reason Stop Dose Admin Amlodipine Besylate 5 mg 01/20/20 10:00 01/22/20 09:19 Norvasc - PO 5 mg DAILY OTILIA Administration Atorvastatin Calcium 40 mg 01/20/20 22:00 01/21/20 21:47 Lipitor - PO 40 mg HS OTILIA Administration Enoxaparin Sodium 40 mg 01/20/20 10:00 01/22/20 09:19 Lovenox - SQ 40 mg DAILY OTILIA Administration Gabapentin 300 mg 01/20/20 06:00 01/22/20 13:41 Neurontin - PO 300 mg TID OTILIA Administration Insulin Aspart 1 vial 01/19/20 22:00 01/22/20 11:39 Novolog Vial Sliding Scale - SQ 8 units ACHS OTILIA Administration Protocol Insulin Detemir 5 units 01/22/20 10:00 01/22/20 09:19 Levemir Vial SQ 5 units DAILY@0700 OTILIA Administration Lidocaine 1 patch 01/20/20 10:00 01/22/20 09:26 Lidoderm Patch - TP 1 patch DAILY OTILIA Administration Lisinopril 20 mg 01/20/20 22:00 01/21/20 21:47 Prinivil PO 20 mg HS OTILIA Administration Miscellaneous 1 each 01/20/20 22:00 01/21/20 21:55 Lidoderm Patch Removal MC 1 each DAILY@2200 OTILIA Administration Oxycodone HCl 10 mg 01/20/20 09:34 01/22/20 06:19 Roxicodone - PO 10 mg Q6H PRN Administration PAIN LEVEL 6-10 Pantoprazole Sodium 40 mg 01/21/20 12:30 01/22/20 09:19 Protonix - PO 40 mg DAILY OTILIA Administration Polyethylene Glycol 17 gm 01/20/20 01:00 Miralax (For Daily Use) - PO DAILY PRN CONSTIPATION Imaging - Results X-ray: Report Reviewed Cat Scan: Report Reviewed ( from last visit) Ultrasound: Report Reviewed Problem List - Problems (1) Back pain Code(s): M54.9 - DORSALGIA, UNSPECIFIED Qualifiers: Back pain location: low back pain Assessment/Plan discussed in detail and answered her all questions 1. continue current care 2, Continue Oxycodone and Neurontin 3. Continue PT and ambulation on floor with assistive Device 4. TLSO 5. if pain is not well controlled please call me at [phone] . Thank you very much for your kind referral.
[2020-01-22] MEDS ORDERED: DEXAMETHASONE SOD PHOSPHATE 10 MG/1 ML VIAL IVPB ONE (14:51)
--- NOTE | 2020-01-22 14:56 | PN ---
Progress Note (short form) - Note Progress Note: SUBJECTIVE: Complains of difficulty ambulating/performing ADLs. No fever/chills. No cough/sputum. OBJECTIVE: Afebrile, Hemodynamically Stable. Last Vital Signs Temp Pulse Resp BP Pulse Ox 97.9 F 92 H 18 156/72 94 L 01/22/20 06:00 01/22/20 09:15 01/22/20 09:15 01/22/20 09:15 01/22/20 09:15 Heart - S1, S2, RRR Lungs - clear to auscultation Abdomen - Soft, non-tender. Bowel Sounds normal. Extremities - no calf tenderness. Neuro - AAO x 3. Tone/Power normal all extremities. Laboratory Results - last 24 hr 01/21/20 01/21/20 01/21/20 15:00 16:42 21:34 WBC RBC Hgb Hct MCV MCH MCHC RDW Plt Count MPV Sodium 137 Potassium 4.3 Chloride 104 Carbon Dioxide 23 Anion Gap 9 BUN 31.6 H Creatinine 1.5 H Est GFR (CKD-EPI)AfAm 40.20 Est GFR (CKD-EPI)NonAf 34.69 POC Glucometer 234 445 Random Glucose 210 H Calcium 9.4 Phosphorus Magnesium Total Bilirubin AST ALT Alkaline Phosphatase Total Protein Albumin 01/21/20 01/22/20 01/22/20 23:53 01:21 06:17 WBC RBC Hgb Hct MCV MCH MCHC RDW Plt Count MPV Sodium Potassium Chloride Carbon Dioxide Anion Gap BUN Creatinine Est GFR (CKD-EPI)AfAm Est GFR (CKD-EPI)NonAf POC Glucometer 403 373 292 Random Glucose Calcium Phosphorus Magnesium Total Bilirubin AST ALT Alkaline Phosphatase Total Protein Albumin 01/22/20 01/22/20 01/22/20 08:38 08:38 11:27 WBC 16.7 H RBC 3.24 L Hgb 9.3 L Hct 28.4 L MCV 87.8 MCH 28.6 MCHC 32.6 RDW 15.3 Plt Count 265 MPV 7.2 L Sodium 137 Potassium 4.1 Chloride 105 Carbon Dioxide 21 Anion Gap 11 BUN 40.7 H Creatinine 1.7 H Est GFR (CKD-EPI)AfAm 34.56 Est GFR (CKD-EPI)NonAf 29.82 POC Glucometer 331 Random Glucose 245 H Calcium 9.7 Phosphorus 3.1 Magnesium 2.1 Total Bilirubin 0.4 AST 10 L ALT 13 Alkaline Phosphatase 111 Total Protein 9.0 H Albumin 2.9 L Current Medications Generic Name Dose Route Start Last Admin Trade Name Freq PRN Reason Stop Dose Admin Amlodipine Besylate 5 mg 01/20/20 10:00 01/22/20 09:19 Norvasc - PO 5 mg DAILY OTILIA Administration Atorvastatin Calcium 40 mg 01/20/20 22:00 01/21/20 21:47 Lipitor - PO 40 mg HS OTILIA Administration Enoxaparin Sodium 40 mg 01/20/20 10:00 01/22/20 09:19 Lovenox - SQ 40 mg DAILY OTILIA Administration Gabapentin 300 mg 01/20/20 06:00 01/22/20 13:41 Neurontin - PO 300 mg TID OTILIA Administration Insulin Aspart 1 vial 01/19/20 22:00 01/22/20 11:39 Novolog Vial Sliding Scale - SQ 8 units ACHS OTILIA Administration Protocol Insulin Detemir 5 units 01/22/20 10:00 01/22/20 09:19 Levemir Vial SQ 5 units DAILY@0700 OTILIA Administration Lidocaine 1 patch 01/20/20 10:00 01/22/20 09:26 Lidoderm Patch - TP 1 patch DAILY OTILIA Administration Lisinopril 20 mg 01/20/20 22:00 01/21/20 21:47 Prinivil PO 20 mg HS OTILIA Administration Miscellaneous 1 each 01/20/20 22:00 01/21/20 21:55 Lidoderm Patch Removal MC 1 each DAILY@2200 OTILIA Administration Oxycodone HCl 10 mg 01/20/20 09:34 01/22/20 06:19 Roxicodone - PO 10 mg Q6H PRN Administration PAIN LEVEL 6-10 Pantoprazole Sodium 40 mg 01/21/20 12:30 01/22/20 09:19 Protonix - PO 40 mg DAILY OTILIA Administration Polyethylene Glycol 17 gm 01/20/20 01:00 Miralax (For Daily Use) - PO DAILY PRN CONSTIPATION Home Medications Medication Instructions Recorded Atorvastatin Ca [Lipitor] 40 mg PO HS 06/15/17 Metoprolol Succinate [Toprol Xl] 50 mg PO DAILY 06/15/17 Sitagliptin Phos/Metformin HCl 50 - 1,000 mg PO BID 06/15/17 [Janumet 50-1,000 mg Tablet] Aspirin Coated [Ecotrin -] 81 mg PO DAILY 07/02/17 Allopurinol 300 mg PO DAILY 01/05/20 Docusate Sodium [Colace -] 100 mg PO BID 30 Days #60 capsule 01/14/20 Lidocaine Patch Removal [Lidoderm 1 each MC DAILY@2200 each 01/14/20 Patch Removal] oxyCODONE HCL [Oxycodone HCl] 5 mg PO Q4H PRN #30 tablet MDD 3 01/14/20 pills Acetaminophen [Tylenol -] 1,000 mg PO Q8H 01/20/20 Amlodipine Besylate/Benazepril 5 - 10 mg PO DAILY 01/20/20 [Lotrel 5-10 mg Capsule] Ergocalciferol (Vitamin D2) 50,000 unit PO WEEKLY 01/20/20 [Vitamin D2] Gabapentin 300 mg PO TID 01/20/20 Valacyclovir HCl [Valacyclovir] 500 mg PO DAILY 01/20/20 ASSESSMENT AND PLAN: 69 year old female with history of HTN, HLD, DM 2, Multiple Myeloma (s/p Dexamethasone, 1 cycle of Velcade, and 1 cycle of RT), presents to ED with complaints of weakness and inability to perform ADLs. Recently admitted 01/03/2020 for multiple fractures at T11, L4-L5 w/ no spinal cord impingement & hypercalcemia of 13.4. 1. Back Pain - secondary to pathologic T/L fractures s/p Velcade/Dex 01/08, Zometa 01/02 Scheduled for Radiation therapy with Dr Canales Further management as per Oncology including redosing IV Dexa 20mg x days 01/20 and 01/21 PT Oxycodone PRN for pain, Gabapentin. Pain Management consulted. 2. LUDMILA ? sec to MM. No improvement with IV hydration. Seen by H/O - redosing Dexa 20mg x 2 days Renal US - no acute/abnormal findings. Nephrology for further recommendations. 3. HTN - Continue Amlodipine, Metoprolol. Hold Lisinopril due to LUDMILA. 4. DM 2 - Janumet held. Fingersticks running high on Novolog sliding scale. Levemir 5mg daily added. 5. HLD - continue Lipitor. 6. Leukocytosis - secondary to IV steroid. No evidence of infection. DVT Px - Lovenox SQ Visit type - Emergency Visit Emergency Visit: Yes ED Registration Date: 01/19/20 Care time: The patient presented to the Emergency Department on the above date and was hospitalized for further evaluation of their emergent condition. - New Patient This patient is new to me today: No - Critical Care Critical Care patient: No - Discharge Referral Referred to [facility] Med P.C.: No
[2020-01-22] MEDS: SODIUM CHLORIDE 1,000 ML IV SCH (15:28)
--- NOTE | 2020-01-22 16:34 | PN.HO ---
Progress Note (short form) - Note Progress Note: ASSESSMENT AND PLAN: Pt. is a 69 y.o. lady w/ PMHx. of HTN, HLD, Multiple Myeloma on velcade/dex/RT, and Hx. of COVID infection presents from home after being visited by VNS . Pt. was recently seen here and began treatment for Multiple Myeloma and was di scharged with outpatient RT/medonc follow up 01/21: Denies pain at the time of my examination, mentioned was sitting in the chair before PHYSICAL EXAMINATION Last Vital Signs Temp Pulse Resp BP Pulse Ox 97.7 F 79 18 149/71 95 01/22/20 14:00 01/22/20 14:00 01/22/20 14:00 01/22/20 14:00 01/22/20 14:00 Last Vital Signs Temp Pulse Resp BP Pulse Ox 98.5 F 81 18 148/77 92 L 01/21/20 14:00 01/21/20 14:00 01/21/20 14:00 01/21/20 14:00 01/21/20 14:00 Cor: RSR, No murmurs, No gallops Lungs: Clear to P&A Abd: Soft, Normal bowel sounds, No organomegaly Ext:No significant edema 01/22/20 08:38 01/22/20 08:38 Active Medications Amlodipine Besylate (Norvasc -) 5 mg PO DAILY [facility], [facility] Last Admin: 01/21/20 09:16 Dose: 5 mg Documented by: Atorvastatin Calcium (Lipitor -) 40 mg PO HS [facility] Last Admin: 01/20/20 21:19 Dose: 40 mg Documented by: Enoxaparin Sodium (Lovenox -) 40 mg SQ DAILY [facility] Last Admin: 01/21/20 09:16 Dose: 40 mg Documented by: Gabapentin (Neurontin -) 300 mg PO TID [facility] Last Admin: 01/21/20 06:44 Dose: 300 mg Documented by: Sodium Chloride (Normal Saline -) 1,000 mls @ 250 mls/hr IV ASDIR [facility], [facility]1983 Stop: 01/21/20 14:29 Last Admin: 01/21/20 11:39 Dose: 250 mls/hr Documented by: Insulin Aspart (Novolog Vial Sliding Scale -) 1 vial SQ ACHS [facility], [facility]; Protocol Last Admin: 01/21/20 11:37 Dose: 6 units Documented by: Lidocaine (Lidoderm Patch -) 1 patch TP DAILY [facility] Last Admin: 01/21/20 09:16 Dose: 1 patch Documented by: Lisinopril (Prinivil) 20 mg PO HS [facility] Last Admin: 01/20/20 21:19 Dose: 20 mg Documented by: Miscellaneous (Lidoderm Patch Removal) 1 each MC DAILY@2200 OTILIA Last Admin: 01/20/20 21:29 Dose: 1 each Documented by: Oxycodone HCl (Roxicodone -) 10 mg PO Q6H PRN PRN Reason: PAIN LEVEL 6-10 Last Admin: 01/21/20 09:17 Dose: 10 mg Documented by: Polyethylene Glycol (Miralax (For Daily Use) -) 17 gm PO DAILY PRN PRN Reason: CONSTIPATION ASSESSMENT/PLAN: Pt. is a 69 y.o. F w/ PMHx. of HTN, HLD, Multiple Myeloma(s/p Dexamethasone, 1 cycle of Velcade, and 1 cycle of RT), and Hx. 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 Demetria renal consult. May consider CyBORD regimen as an alternative if LUDMILA does not improve Pain managment: Demetria Dr. Casanova's help.
[2020-01-22] MEDS ORDERED: INSULIN (NOVOLOG) ASPART 100 UNITS/ML 10ML VIAL ONE (21:28)
[2020-01-22] MEDS: ATORVASTATIN CA 40 MG TABLET (FP) PO SCH (21:43)
[2020-01-22] MEDS: LIDOCAINE PATCH REMOVAL MC SCH (21:44)
[2020-01-23] MEDS: SODIUM CHLORIDE 1,000 ML IV SCH ×2 (03:19→15:02)
[2020-01-23] MEDS: oxyCODONE HCL 5 MG TABLET PO PRN ×2 (06:54→13:38)
[2020-01-23] MEDS: INSULIN SLIDING SCALE (NOVOLOG) 1 VIAL SQ SCH ×4 (06:58→21:26)
[2020-01-23] MEDS: INSULIN (LEVEMIR) 100 UNITS/ML UNITS SQ SCH (06:59)
[2020-01-23] MEDS: GABAPENTIN 300 MG CAPSULE PO SCH ×3 (06:59→21:26)
[2020-01-23 09:20] LABS: URIC ACID 4.9 mg/dL (2.6-7.2)
[2020-01-23] MEDS: ENOXAPARIN NA (PORCINE) 40 MG/0.4 ML DISP.SYRIN SQ SCH (09:35)
[2020-01-23] MEDS: PANTOPRAZOLE 40 MG TABLET PO SCH (09:35)
[2020-01-23] MEDS: LIDOCAINE 5% TOPICAL PATCH TP SCH (09:35)
[2020-01-23] MEDS: amLODIPine BESYLATE 5 MG TABLET (FP) PO SCH (09:35)
--- NOTE | 2020-01-23 09:36 | PN ---
Progress Note (short form) - Note Progress Note: Radiation Oncology Pt is known to our department and was seen on last admission with hx of myeloma s/p right humerus fracture post IM ángel/RT and presenting with multiple pathologic vertebral compression fractures of spine associated with bony retropulsion and thecal sac impingement at T11 and L1. She was not a candidate for surgery or kyphoplasty. Was discharged and started outpatient RT on 01/18/20 (1 fx to date) but unfortunately has remained unsteady and with poor pain control. Now readmitted for same. Continue pain management and systemic therapy. She should continue her RT while here. Will schedule next treatment today (4fx remaining).
[2020-01-23 11:03] LABS: BASO % 0.4 % (0-2.0); HEMATOCRIT 27.3 % (32.4-45.2); HEMOGLOBIN 8.9 GM/dL (10.7-15.3); LYMPH % 4.8 % (8-40); MCHC 32.5 g/dl (32.0-36.0); MEAN CELL VOLUME 89.1 fl (80-96); MONO % 2.7 % (3.8-10.2); NEUT % 92.1 % (42.8-82.8); PLATELET COUNT 232 K/MM3 (134-434); RBC 3.06 M/mm3 (3.60-5.2); RDW 15.7 % (11.6-15.6); WHITE BLOOD COUNT 14.9 K/mm3 (4.0-10.0)
[2020-01-23 11:12] LABS: ALBUMIN 2.8 g/dl (3.4-5.0); BILIRUBIN,TOTAL 0.4 mg/dL (0.2-1); BLOOD UREA NITROGEN 35.3 mg/dL (7-18); CALCIUM 9.2 mg/dL (8.5-10.1); CREATININE 1.3 mg/dL (0.55-1.3); MAGNESIUM 1.9 mg/dL (1.8-2.4); PHOSPHOROUS 3.2 mg/dL (2.5-4.9); POTASSIUM 3.9 mmol/L (3.5-5.1); TOT PROT 8.4 g/dl (6.4-8.2)
[2020-01-23 11:38] LABS: ANISOCYTOSIS 1+; MACROCYTOSIS 1+; PLATELET ESTIMATE NORMAL
--- NOTE | 2020-01-23 12:34 | CON.CARD ---
Consult Consult Specialty:: Cardiology - History of Present Illness History of Present Illness: 69 y.o. F PMHx of HTN, HLD, DM, Multiple myeloma (sees Dr. Lerma, started radiation this week, diagnosed in May 2019), covid. 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 Patient stated She has been feeling weak and has an inability to perform her ADL's. She stated she was supposed to be given a camode, walker and a home health aid with frequent visits, none of which occured. Today she is feeling well complains of back pain. weakness and numbness in her fingertips. She is also concerned for her own well being. She has also not been able to take her hypertensive medication this past week due to not having the refills sent. She has 3 sons 1 of which she lives with and will help her around the apartment "when he has time". The other 2 sons live in [place]. 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 Patient was admitted here on 01/03/2020 for multiple fractures at T11, L4-L5 w/ no spinal cord impingement & hypercalcemia of 13.4. PMH ASHD negative ECHO stress test 2009 DM 2004 HTN Hyperlipidemia [address] Non [address] coronaries [address] dr. Lawton Non compliance with medical treatment - Past Medical History Cardio/Vascular: Yes: HTN, Hyperlipdemia Endocrine: Yes: Diabetes Mellitus - Past Surgical History Past Surgical History: Yes: Cholecystectomy - Alcohol/Substance Use Hx Alcohol Use: No History of Substance Use: reports: None - Smoking History Smoking history: Never smoked Have you smoked in the past 12 months: No - Social History Usual Living Arrangement: Alone Home Medications - Allergies Allergies/Adverse Reactions: Allergies Allergy/AdvReac Type Severity Reaction Status Date / Time No Known Allergies Allergy Verified 01/03/20 10:49 - Home Medications Home Medications: Ambulatory Orders Atorvastatin Ca [Lipitor] 40 mg PO HS 06/15/17 Metoprolol Succinate [Toprol Xl] 50 mg PO DAILY 06/15/17 Sitagliptin Phos/Metformin HCl [Janumet 50-1,000 mg Tablet] 50 - 1,000 mg PO BID 06/15/17 Aspirin Coated [Ecotrin -] 81 mg PO DAILY 07/02/17 Allopurinol 300 mg PO DAILY 01/05/20 Docusate Sodium [Colace -] 100 mg PO BID 30 Days #60 capsule 01/14/20 Lidocaine Patch Removal [Lidoderm Patch Removal] 1 each MC DAILY@2200 each 01/14/20 oxyCODONE HCL [Oxycodone HCl] 5 mg PO Q4H PRN #30 tablet MDD 3 pills 01/14/20 Acetaminophen [Tylenol .Extra-Strength -] 1,000 mg PO Q8H 01/20/20 Amlodipine Besylate/Benazepril [Lotrel 5-10 mg Capsule] 5 - 10 mg PO DAILY 01/20/20 Ergocalciferol (Vitamin D2) [Vitamin D2] 50,000 unit PO WEEKLY 01/20/20 Gabapentin 300 mg PO TID 01/20/20 Valacyclovir HCl [Valacyclovir] 500 mg PO DAILY 01/20/20 Review of Systems - Review of Systems Constitutional: reports: No Symptoms Eyes: reports: No Symptoms HENT: reports: No Symptoms Neck: reports: No Symptoms Cardiovascular: reports: No Symptoms Gastrointestinal: reports: No Symptoms Genitourinary: reports: No Symptoms Breasts: reports: No Symptoms Reported Musculoskeletal: reports: No Symptoms Integumentary: reports: No Symptoms Neurological: reports: No Symptoms Endocrine: reports: No Symptoms Hematology/Lymphatic: reports: No Symptoms Psychiatric: reports: No Symptoms Vital Signs: Vital Signs Temperature 97.9 F 01/23/20 08:43 Pulse Rate 73 01/23/20 08:43 Respiratory Rate 18 01/23/20 08:43 Blood Pressure 172/79 H 01/23/20 08:43 O2 Sat by Pulse Oximetry (%) 93 L 01/23/20 09:00 Constitutional: Yes: Well Nourished, No Distress, Calm Eyes: Yes: WNL, Conjunctiva Clear, EOM Intact HENT: Yes: WNL, Atraumatic, Normocephalic Neck: Yes: WNL, Supple, Trachea Midline Respiratory: Yes: WNL, Regular, CTA Bilaterally Gastrointestinal: Yes: WNL, Normal Bowel Sounds Renal/: Yes: WNL Cardiovascular: Yes: WNL, Regular Rate and Rhythm Musculoskeletal: Yes: WNL Extremities: Yes: WNL Integumentary: Yes: WNL Neurological: Yes: WNL, Alert, Oriented ...Motor Strength: WNL Psychiatric: Yes: WNL, Alert, Oriented - Other Data Labs, Other Data: CBC, BMP 01/23/20 09:33 01/23/20 08:10 Imaging - Results Chest X-ray: Image Reviewed (no i/e) EKG: Image Reviewed (sr lvh rep abn) Problem List - Problems (1) Back pain Code(s): M54.9 - DORSALGIA, UNSPECIFIED Qualifiers: Back pain location: low back pain (2) Weakness Code(s): R53.1 - WEAKNESS (3) Multiple myeloma Code(s): C90.00 - MULTIPLE MYELOMA NOT HAVING ACHIEVED REMISSION (4) Spine fracture Code(s): HBG8060 - (5) Hypercalcemia Code(s): E83.52 - HYPERCALCEMIA Assessment/Plan 69 y.o. F PMHx of HTN, HLD, DM, Multiple myeloma (sees Dr. Lerma, started radiation this week, diagnosed in May 2019), covid. 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 ASHD negative ECHO stress test 2010 DM 2004 HTN Hyperlipidemia 2003 Non obstructive coronaries 2012 dr. Lawton Non compliance with medical treatment Plan; Cardiac rushing stable cont present rx DVT plx
--- NOTE | 2020-01-23 13:44 | PN ---
Progress Note, Physician History of Present Illness: Pt seen and examined at bedside. SHe is awake and alert. She denies shortness of breath. - Current Medication List Current Medications: Active Medications Amlodipine Besylate (Norvasc -) 5 mg PO DAILY [facility] Last Admin: 01/23/20 09:35 Dose: 5 mg Documented by: Atorvastatin Calcium (Lipitor -) 40 mg PO [facility] Last Admin: 01/22/20 21:43 Dose: 40 mg Documented by: Enoxaparin Sodium (Lovenox -) 40 mg SQ DAILY [facility] Last Admin: 01/23/20 09:35 Dose: 40 mg Documented by: Gabapentin (Neurontin -) 300 mg PO TID [facility] Last Admin: 01/23/20 06:59 Dose: 300 mg Documented by: Sodium Chloride (Normal Saline -) 1,000 mls @ 100 mls/hr IV ASDIR [facility] Last Admin: 01/23/20 03:19 Dose: 100 mls/hr Documented by: Insulin Aspart (Novolog Vial Sliding Scale -) 1 vial SQ [facility]; Protocol Last Admin: 01/23/20 11:59 Dose: 8 units Documented by: Insulin Detemir (Levemir Vial) 5 units SQ DAILY@0700 [facility] Last Admin: 01/23/20 06:59 Dose: 5 units Documented by: Lidocaine (Lidoderm Patch -) 1 patch TP DAILY [facility] Last Admin: 01/23/20 09:35 Dose: 1 patch Documented by: Lisinopril (Prinivil) 20 mg PO [facility] Last Admin: 01/21/20 21:47 Dose: 20 mg Documented by: Miscellaneous (Lidoderm Patch Removal) 1 each MC DAILY@2200 [facility] Last Admin: 01/22/20 21:44 Dose: 1 each Documented by: Oxycodone HCl (Roxicodone -) 10 mg PO Q6H PRN PRN Reason: PAIN LEVEL 6-10 Last Admin: 01/23/20 06:54 Dose: 10 mg Documented by: Pantoprazole Sodium (Protonix -) 40 mg PO DAILY [facility] Last Admin: 01/23/20 09:35 Dose: 40 mg Documented by: Polyethylene Glycol (Miralax (For Daily Use) -) 17 gm PO DAILY PRN PRN Reason: CONSTIPATION - Objective Vital Signs: Vital Signs Temperature 97.9 F 01/23/20 08:43 Pulse Rate 73 01/23/20 08:43 Respiratory Rate 18 01/23/20 08:43 Blood Pressure 172/79 H 01/23/20 08:43 O2 Sat by Pulse Oximetry (%) 93 L 01/23/20 09:00 Constitutional: Yes: Calm Eyes: Yes: Conjunctiva Clear HENT: Yes: Atraumatic Neck: Yes: Supple Cardiovascular: Yes: S1, S2 Respiratory: Yes: CTA Bilaterally Gastrointestinal: Yes: Soft Genitourinary: Yes: WNL Musculoskeletal: Yes: WNL Edema: No Neurological: Yes: Oriented Psychiatric: Yes: Oriented Labs: CBC, BMP 01/23/20 09:33 01/23/20 08:10 Assessment/Plan Current Medications Generic Name Dose Route Start Last Admin Trade Name Freq PRN Reason Stop Dose Admin Amlodipine Besylate 5 mg 01/20/20 10:00 01/23/20 09:35 Norvasc - PO 5 mg DAILY [facility] Administration Atorvastatin Calcium 40 mg 01/20/20 22:00 01/22/20 21:43 Lipitor - PO 40 mg HS [facility] Administration Enoxaparin Sodium 40 mg 01/20/20 10:00 01/23/20 09:35 Lovenox - SQ 40 mg DAILY [facility] Administration Gabapentin 300 mg 01/20/20 06:00 01/23/20 06:59 Neurontin - PO 300 mg TID [facility] Administration Sodium Chloride 1,000 mls @ 100 mls/hr 01/22/20 15:00 01/23/20 03:19 Normal Saline - IV 100 mls/hr ASDIR [facility] Administration Insulin Aspart 1 vial 01/19/20 22:00 01/23/20 11:59 Novolog Vial Sliding Scale - SQ 8 units ACHS [facility] Administration Protocol Insulin Detemir 5 units 01/22/20 10:00 01/23/20 06:59 Levemir Vial SQ 5 units DAILY@0700 [facility] Administration Lidocaine 1 patch 01/20/20 10:00 01/23/20 09:35 Lidoderm Patch - TP 1 patch DAILY [facility] Administration Lisinopril 20 mg 01/20/20 22:00 01/21/20 21:47 Prinivil PO 20 mg HS [facility] Administration Miscellaneous 1 each 01/20/20 22:00 01/22/20 21:44 Lidoderm Patch Removal MC 1 each DAILY@2200 [facility] Administration Oxycodone HCl 10 mg 01/20/20 09:34 01/23/20 06:54 Roxicodone - PO 10 mg Q6H PRN Administration PAIN LEVEL 6-10 Pantoprazole Sodium 40 mg 01/21/20 12:30 01/23/20 09:35 Protonix - PO 40 mg DAILY [facility] Administration Polyethylene Glycol 17 gm 01/20/20 01:00 Miralax (For Daily Use) - PO DAILY PRN CONSTIPATION Impression 1. hypercalcemia 2. multiple myelpma 3. htn 4. hld 5. dm 6. hypokalemia 7. compression fractures 8. CKD 9. LUDMILA Plan - renal function improved - monitor lytes - can cont domingo - monitor calcium - will need outpt follow up
--- NOTE | 2020-01-23 15:00 | PN ---
Teaching Attending Note Name of Resident: Vitkor Escobar ATTENDING PHYSICIAN STATEMENT I saw and evaluated the patient. I reviewed the resident's note and discussed the case with the resident. I agree with the resident's findings and plan as documented. SUBJECTIVE: Feeling well, no complaints. No fever/chills. No cough/sputum. Voiding well, no dysuria/hematuria. OBJECTIVE: Afebrile, Hemodynamically Stable. Last Vital Signs Temp Pulse Resp BP Pulse Ox 97.9 F 73 18 172/79 H 93 L 01/23/20 08:43 01/23/20 08:43 01/23/20 08:43 01/23/20 08:43 01/23/20 09:00 Heart - S1, S2, RRR Lungs - clear to auscultation Abdomen - Soft, non-tender. Bowel Sounds normal. Extremities - no calf tenderness. Neuro - AAO x 3. Tone/Power normal all extremities. Laboratory Results - last 24 hr 01/22/20 01/22/20 01/22/20 17:22 21:36 23:05 WBC RBC Hgb Hct MCV MCH MCHC RDW Plt Count MPV Absolute Neuts (auto) Neutrophils % Neutrophils % (Manual) Band Neutrophils % Lymphocytes % Lymphocytes % (Manual) Monocytes % Monocytes % (Manual) Eosinophils % Eosinophils % (Manual) Basophils % Basophils % (Manual) Myelocytes % (Man) Promyelocytes % (Man) Blast Cells % (Manual) Nucleated RBC % Metamyelocytes Hypochromia Platelet Estimate Polychromasia Poikilocytosis Anisocytosis Microcytosis Macrocytosis Sodium Potassium Chloride Carbon Dioxide Anion Gap BUN Creatinine Est GFR (CKD-EPI)AfAm Est GFR (CKD-EPI)NonAf POC Glucometer 271 420 378 Random Glucose Uric Acid Calcium Phosphorus Magnesium Total Bilirubin AST ALT Alkaline Phosphatase LD Total Total Protein Albumin 01/23/20 01/23/20 01/23/20 06:56 08:10 09:33 WBC 14.9 H RBC 3.06 L Hgb 8.9 L Hct 27.3 L MCV 89.1 MCH 29.0 MCHC 32.5 RDW 15.7 H Plt Count 232 MPV 8.0 D Absolute Neuts (auto) 13.7 H Neutrophils % 92.1 H D Neutrophils % (Manual) 93.0 H Band Neutrophils % 0.0 Lymphocytes % 4.8 L D Lymphocytes % (Manual) 6.0 L D Monocytes % 2.7 L Monocytes % (Manual) 1 L Eosinophils % 0.0 D Eosinophils % (Manual) 0.0 Basophils % 0.4 Basophils % (Manual) 0.0 Myelocytes % (Man) 0 D Promyelocytes % (Man) 0 Blast Cells % (Manual) 0 Nucleated RBC % 0 Metamyelocytes 0 D Hypochromia 0 Platelet Estimate Normal Polychromasia 1+ Poikilocytosis 0 Anisocytosis 1+ Microcytosis 0 Macrocytosis 1+ Sodium 140 Potassium 3.9 Chloride 108 H Carbon Dioxide 20 L Anion Gap 12 BUN 35.3 H Creatinine 1.3 Est GFR (CKD-EPI)AfAm 47.80 Est GFR (CKD-EPI)NonAf 41.24 POC Glucometer 322 Random Glucose 292 H Uric Acid 4.9 Calcium 9.2 Phosphorus 3.2 Magnesium 1.9 Total Bilirubin 0.4 AST 8 L ALT 12 L Alkaline Phosphatase 108 LD Total 125 Total Protein 8.4 H Albumin 2.8 L 01/23/20 11:57 WBC RBC Hgb Hct MCV MCH MCHC RDW Plt Count MPV Absolute Neuts (auto) Neutrophils % Neutrophils % (Manual) Band Neutrophils % Lymphocytes % Lymphocytes % (Manual) Monocytes % Monocytes % (Manual) Eosinophils % Eosinophils % (Manual) Basophils % Basophils % (Manual) Myelocytes % (Man) Promyelocytes % (Man) Blast Cells % (Manual) Nucleated RBC % Metamyelocytes Hypochromia Platelet Estimate Polychromasia Poikilocytosis Anisocytosis Microcytosis Macrocytosis Sodium Potassium Chloride Carbon Dioxide Anion Gap BUN Creatinine Est GFR (CKD-EPI)AfAm Est GFR (CKD-EPI)NonAf POC Glucometer 327 Random Glucose Uric Acid Calcium Phosphorus Magnesium Total Bilirubin AST ALT Alkaline Phosphatase LD Total Total Protein Albumin Current Medications Generic Name Dose Route Start Last Admin Trade Name Freq PRN Reason Stop Dose Admin Amlodipine Besylate 5 mg 01/20/20 10:00 01/23/20 09:35 Norvasc - PO 5 mg DAILY [facility] Administration Atorvastatin Calcium 40 mg 01/20/20 22:00 01/22/20 21:43 Lipitor - PO 40 mg HS [facility] Administration Enoxaparin Sodium 40 mg 01/20/20 10:00 01/23/20 09:35 Lovenox - SQ 40 mg DAILY [facility] Administration Gabapentin 300 mg 01/20/20 06:00 01/23/20 13:38 Neurontin - PO 300 mg TID [facility] Administration Sodium Chloride 1,000 mls @ 100 mls/hr 01/22/20 15:00 01/23/20 03:19 Normal Saline - IV 100 mls/hr ASDIR [facility] Administration Insulin Aspart 1 vial 01/19/20 22:00 01/23/20 11:59 Novolog Vial Sliding Scale - SQ 8 units ACHS [facility] Administration Protocol Insulin Detemir 5 units 01/22/20 10:00 01/23/20 06:59 Levemir Vial SQ 5 units DAILY@0700 [facility] Administration Lidocaine 1 patch 01/20/20 10:00 01/23/20 09:35 Lidoderm Patch - TP 1 patch DAILY [facility] Administration Lisinopril 20 mg 01/20/20 22:00 01/21/20 21:47 Prinivil PO 20 mg HS [facility] Administration Miscellaneous 1 each 01/20/20 22:00 01/22/20 21:44 Lidoderm Patch Removal MC 1 each DAILY@2199 [facility] Administration Oxycodone HCl 10 mg 01/20/20 09:34 01/23/20 13:38 Roxicodone - PO 10 mg Q6H PRN Administration PAIN LEVEL 6-10 Pantoprazole Sodium 40 mg 01/21/20 12:30 01/23/20 09:35 Protonix - PO 40 mg DAILY [facility] Administration Polyethylene Glycol 17 gm 01/20/20 01:00 Miralax (For Daily Use) - PO DAILY PRN CONSTIPATION Home Medications Medication Instructions Recorded Atorvastatin Ca [Lipitor] 40 mg PO HS 06/15/17 Metoprolol Succinate [Toprol Xl] 50 mg PO DAILY 06/15/17 Sitagliptin Phos/Metformin HCl 50 - 1,000 mg PO BID 06/15/17 [Janumet 50-1,000 mg Tablet] Aspirin Coated [Ecotrin -] 81 mg PO DAILY 07/02/17 Allopurinol 300 mg PO DAILY 01/05/20 Docusate Sodium [Colace -] 100 mg PO BID 30 Days #60 capsule 01/14/20 Lidocaine Patch Removal [Lidoderm 1 each MC DAILY@2199 each 01/14/20 Patch Removal] oxyCODONE HCL [Oxycodone HCl] 5 mg PO Q4H PRN #30 tablet MDD 3 01/14/20 pills Acetaminophen [Tylenol -] 1,000 mg PO Q8H 01/20/20 Amlodipine Besylate/Benazepril 5 - 10 mg PO DAILY 01/20/20 [Lotrel 5-10 mg Capsule] Ergocalciferol (Vitamin D2) 50,000 unit PO WEEKLY 01/20/20 [Vitamin D2] Gabapentin 300 mg PO TID 01/20/20 Valacyclovir HCl [Valacyclovir] 500 mg PO DAILY 01/20/20 ASSESSMENT AND PLAN: 69 year old female with history of HTN, HLD, DM 2, Multiple Myeloma (s/p Dexamethasone, 1 cycle of Velcade, and 1 cycle of RT), presents to ED with complaints of weakness and inability to perform ADLs. Recently admitted 01/03/2020 for multiple fractures at T11, L4-L5 w/ no spinal cord impingement & hypercalcemia of 13.4. 1. Back Pain - secondary to pathologic T/L fractures s/p Velcade/Dex 01/08, Zometa 01/02 Scheduled to continue Radiation therapy with Dr Canales Further management as per Oncology - s/p IV Dexa 20mg x days 01/20 and 01/21 Oxycodone PRN for pain, Gabapentin. Pain Management consulted - can follow as out-patient. 2. LUDMILA ? sec to Dehydration vs MM. Some improvement with IV hydration. Seen by H/O - redosed Dexa 20mg x 2 days Renal US - no acute/abnormal findings. Nephrology recommends out-patient eval. 3. HTN - Continue Amlodipine, Metoprolol, Lisinopril. 4. DM 2 - Resume Home oral anti-diabetic medications on discharge. 5. HLD - continue Lipitor. 6. Leukocytosis - secondary to IV steroid. No evidence of infection. Medically stable for discharge with Oncology, Nephrology, Radiation Oncology
[2020-01-23] MEDS ORDERED: LISINOPRIL 20 MG TABLET (FP) PO SCH (16:05)
--- NOTE | 2020-01-23 16:28 | DS ---
Physical Exam: SUBJECTIVE: Patient seen and examined OBJECTIVE: Vital Signs Period Temp Pulse Resp BP Sys/Kerr Pulse Ox Last 24 Hr 97.8 F-99.3 F 73-91 18-20 152-172/72-85 93-113 PHYSICAL EXAM GENERAL: The patient is awake, alert, and fully oriented, in no acute distress. HEAD: Normal with no signs of trauma. EYES: PERRL, extraocular movements intact, sclera anicteric, conjunctiva clear. ENT: Ears normal, nares patent, oropharynx clear without exudates, moist mucous membranes. NECK: Trachea midline, full range of motion, supple. LUNGS: Breath sounds equal, clear to auscultation bilaterally, no wheezes, no crackles, no accessory muscle use. HEART: Regular rate and rhythm, S1, S2 without murmur, rub or gallop. ABDOMEN: Soft, nontender, nondistended, normoactive bowel sounds, no guarding, no rebound, no hepatosplenomegaly, no masses. EXTREMITIES: 2+ pulses, warm, well-perfused, no edema. NEUROLOGICAL: Cranial nerves II through XII grossly intact. Normal speech, gait not observed. PSYCH: Normal mood, normal affect. SKIN: Warm, dry, normal turgor, no rashes or lesions noted. LABS Laboratory Results - last 24 hr 01/22/20 01/22/20 01/22/20 17:22 21:36 23:05 WBC RBC Hgb Hct MCV MCH MCHC RDW Plt Count MPV Absolute Neuts (auto) Neutrophils % Neutrophils % (Manual) Band Neutrophils % Lymphocytes % Lymphocytes % (Manual) Monocytes % Monocytes % (Manual) Eosinophils % Eosinophils % (Manual) Basophils % Basophils % (Manual) Myelocytes % (Man) Promyelocytes % (Man) Blast Cells % (Manual) Nucleated RBC % Metamyelocytes Hypochromia Platelet Estimate Polychromasia Poikilocytosis Anisocytosis Microcytosis Macrocytosis Sodium Potassium Chloride Carbon Dioxide Anion Gap BUN Creatinine Est GFR (CKD-EPI)AfAm Est GFR (CKD-EPI)NonAf POC Glucometer 271 420 378 Random Glucose Uric Acid Calcium Phosphorus Magnesium Total Bilirubin AST ALT Alkaline Phosphatase LD Total Total Protein Albumin 01/23/20 01/23/20 01/23/20 06:56 08:10 09:33 WBC 14.9 H RBC 3.06 L Hgb 8.9 L Hct 27.3 L MCV 89.1 MCH 29.0 MCHC 32.5 RDW 15.7 H Plt Count 232 MPV 8.0 D Absolute Neuts (auto) 13.7 H Neutrophils % 92.1 H D Neutrophils % (Manual) 93.0 H Band Neutrophils % 0.0 Lymphocytes % 4.8 L D Lymphocytes % (Manual) 6.0 L D Monocytes % 2.7 L Monocytes % (Manual) 1 L Eosinophils % 0.0 D Eosinophils % (Manual) 0.0 Basophils % 0.4 Basophils % (Manual) 0.0 Myelocytes % (Man) 0 D Promyelocytes % (Man) 0 Blast Cells % (Manual) 0 Nucleated RBC % 0 Metamyelocytes 0 D Hypochromia 0 Platelet Estimate Normal Polychromasia 1+ Poikilocytosis 0 Anisocytosis 1+ Microcytosis 0 Macrocytosis 1+ Sodium 140 Potassium 3.9 Chloride 108 H Carbon Dioxide 20 L Anion Gap 12 BUN 35.3 H Creatinine 1.3 Est GFR (CKD-EPI)AfAm 47.80 Est GFR (CKD-EPI)NonAf 41.24 POC Glucometer 322 Random Glucose 292 H Uric Acid 4.9 Calcium 9.2 Phosphorus 3.2 Magnesium 1.9 Total Bilirubin 0.4 AST 8 L ALT 12 L Alkaline Phosphatase 108 LD Total 125 Total Protein 8.4 H Albumin 2.8 L 01/23/20 11:57 WBC RBC Hgb Hct MCV MCH MCHC RDW Plt Count MPV Absolute Neuts (auto) Neutrophils % Neutrophils % (Manual) Band Neutrophils % Lymphocytes % Lymphocytes % (Manual) Monocytes % Monocytes % (Manual) Eosinophils % Eosinophils % (Manual) Basophils % Basophils % (Manual) Myelocytes % (Man) Promyelocytes % (Man) Blast Cells % (Manual) Nucleated RBC % Metamyelocytes Hypochromia Platelet Estimate Polychromasia Poikilocytosis Anisocytosis Microcytosis Macrocytosis Sodium Potassium Chloride Carbon Dioxide Anion Gap BUN Creatinine Est GFR (CKD-EPI)AfAm Est GFR (CKD-EPI)NonAf POC Glucometer 327 Random Glucose Uric Acid Calcium Phosphorus Magnesium Total Bilirubin AST ALT Alkaline Phosphatase LD Total Total Protein Albumin HOSPITAL COURSE: Suspected severe malnutrition in the setting of inability to care for self, due to increased somatic back pain with pathological fractures secondary to multiple myeloma. Patient endorsed inability to ambulate/ stand and preform ADL. Patient has been reported to have lost 5 lbs in 5 days and 14 lbs since early december according to turbine mechanic consult. Date of Admission:01/19/20 Ms. Houston is a 69F w a h/o HTN, HLD, DM 2, recently diagnosed MM (follows with Dr. Lerma), and a recent admission presented with limited ability to carry out ADL. She denies LE weakness or incontinence. She was found to have multiple spinal vertebral pathologic fractures. Patient was seen by neurosurgery, radiation oncology, oncology, nephrology. Patient was not considered a surgical candidate. Patient was started on IV dexamethasone, Revlimid, and Velcade. Patient will begin palliative radiation treatment with Dr. Chester as an outpatient. Patient discharged on pain regimen including lidocaine, standing T ylenol, oxycodone, and gabapentin. Pain control was improved with these medications but patient still has chronic discomfort. Patient was able to ambulate 150 feet with physical therapy. Patient also was found to be hypercalcemic. Status post bisphosphonate and calcitonin therapy with resolution of hypercalcemia. Patient was also started on allopurinol for elevated uric acid. She will follow-up with nephrology and oncology as an outpatient for further management. Patient requires home care and will be sent home with visiting nursing services. Date of Discharge: 01/23/20 Minutes to complete discharge: 40 Discharge Summary Problems reviewed: Yes Reason For Visit: WEAKNESS Current Active Problems Back pain (Chronic) Condition: Stable - Instructions Diet, Activity, Other Instructions: YOUR VISIT: You were admitted to the hospital because you were unable to safely engage in activities of daily living. While you were evaluated with lab work, blood work, chest x-ray, and a renal ultrasound. While you were here, you were also found to have a laboratory abnormality likely due to increased stress on your kidneys which could likely be a result of your multiple myeloma and elevated blood pressure. You were seen by our Hematologists Dr. Erik Mac and Dr. Call, nephrology, Dr. Glo Finley. CARE: It is advisable that you use the pain medication to mitigate the pain. We advise you to maintain hydration, diet, and proper hygiene. Will set up visiting nursing services at home. MEDICATIONS: Please continue taking all of your medications as prescribed Please continue taking your blood pressure medications regularly as prescribed FOLLOW UP: Please follow up with your primary care physician within 1 week (Dr. Will) Please follow up with your Head Well Puller within 1 week ( Dr. Mac) Please follow up with your seed tester within 1 week (Dr. Finley) Please follow up with your radiation oncologist within 1 week ( Dr. Chester) You should follow up with [facility] primary care group within 1 week after discharge. ADDITIONAL INFORMATION: You are being discharged HOME Please return to the emergency department if you are experiencing any worsening back pain, fatigue, numbness or tingling in your legs or feet, or sudden weakness in your extremities. Referrals: Imtiaz Chester MD [Staff Physician] - 1 Week Norm Escamilla MD [Staff Physician] - 1 Week Glo Finley MD [Staff Physician] - 1 Week Erik Mac MD [Staff Physician] - 1 Week Ofelia Will [Primary Care Provider] - 1 Week Disposition: VNS/HOME HEALTH CARE - Home Medications Comprehensive Discharge Medication List: Ambulatory Orders Atorvastatin Ca [Lipitor] 40 mg PO HS 06/15/17 Metoprolol Succinate [Toprol Xl] 50 mg PO DAILY 06/15/17 Sitagliptin Phos/Metformin HCl [Janumet 50-1,000 mg Tablet] 50 - 1,000 mg PO BID 06/15/17 Aspirin Coated [Ecotrin -] 81 mg PO DAILY 07/02/17 Allopurinol 300 mg PO DAILY 01/05/20 Docusate Sodium [Colace -] 100 mg PO BID 30 Days #60 capsule 01/14/20 Lidocaine Patch Removal [Lidoderm Patch Removal] 1 each MC DAILY@2200 each 01/14/20 oxyCODONE HCL [Oxycodone HCl] 5 mg PO Q4H PRN #30 tablet MDD 3 pills 01/14/20 Acetaminophen [Tylenol .Extra-Strength -] 1,000 mg PO Q8H 01/20/20 Amlodipine Besylate/Benazepril [Lotrel 5-10 mg Capsule] 5 - 10 mg PO DAILY 01/20/20 Ergocalciferol (Vitamin D2) [Vitamin D2] 50,000 unit PO WEEKLY 01/20/20 Gabapentin 300 mg PO TID 01/20/20 Valacyclovir HCl [Valacyclovir] 500 mg PO DAILY 01/20/20 - Discharge Referral Referred to [facility] No ATTENDING PHYSICIAN STATEMENT I saw and evaluated the patient. I reviewed the resident's note and discussed the case with the resident. I agree with the resident's findings and plan as documented. SUBJECTIVE: OBJECTIVE: ASSESSMENT AND PLAN:
[2020-01-23] MEDS ORDERED: amLODIPine BESYLATE 5 MG TABLET (FP) PO ONE (17:59)
[2020-01-23] MEDS ORDERED: amLODIPine BESYLATE 5 MG TABLET (FP) PO SCH (18:00)
--- NOTE | 2020-01-23 18:34 | PN ---
Progress Note (short form) - Note Progress Note: Palliative care f/up 69 y.o. F w/ PMHx. of HTN, HLD, Multiple myeloma with multiple pathologic vertebral compression fractures, most symptomatic at T4, T11 and L4 and L5 (s/p Dexamethasone, 1 cycle of Velcade, and 1 cycle of RT), and Hx. of COVID infection with multiple vertebral fractures ,worsening weakness for 1 week. s/p RT- 1st treatment last Thursday. Pt. was supposed to complete Palliative radiation therapy prior to starting Revlimid. She has generalized weakness and is unable to take care of herself at home. She. states that she does not have the appropriate bed, commode, or bathroom seat to be able to take care of herself. She is unable to cook, clean or take care of her household responsibilities by herself. Movement causes back pain. Pathologic compression fractures/ thecal sac compression T4/11, L4/5 on MRI done 12/29. Also degenerative central canal stenosis MRI C spine shows no cord compression generalized weakness dependent for all adls/ ambulation peripheral neuropathy back pain not a candidate for kyphoplasty s/p velcade/ RT received decadron on oxycodone/ neurontin pain better today dc planning with [facility] postponed due to elevated BP AAO x 3 NAD MMM chest- CTAB cvs- s1s2 nl no c/c/e s/p Velcade/dex 01/09/20 s/p zometa 01/02 Patient is full code She has a HCP and a living will. She is continuing palliative radiation treatment and denies any significant adverse effects but has significant weakness. She has leucocytosis probably secondary to steroids She does need assistance with ADLS and does not want to go to SNF PT eval and home PT services on dc along with DME. Pain management- narcotics, gabapentin HTN- norvasc, lisinopril added dc planning in progress Problem List - Problems (1) Multiple myeloma Code(s): C90.00 - MULTIPLE MYELOMA NOT HAVING ACHIEVED REMISSION (2) Spine fracture Code(s): IRM5545 -
[2020-01-23] MEDS: ATORVASTATIN CA 40 MG TABLET (FP) PO SCH (21:25)
[2020-01-23] MEDS: LIDOCAINE PATCH REMOVAL MC SCH (22:08)
--- NOTE | 2020-01-23 22:31 | PN.HO ---
Progress Note (short form) - Note Progress Note: PAtient seen and exained Has back pain and rt. lower rib age pain Last Vital Signs Temp Pulse Resp BP Pulse Ox 98.2 F 96 H 18 191/92 H 93 L 01/23/20 18:00 01/23/20 18:00 01/23/20 18:00 01/23/20 18:00 01/23/20 14:00 Cor: RSR, No murmurs, No gallops Lungs: Clear to P&A Abd: Soft, RUQ tenderness Ext:No significant edema LAbs/MEds reviewed A/P 69 y/o patient with HTN, HLD, myeloma admitted with back pain Multiple myeloma with multiple pathologic vetebral compression fractures, most symptomatic at T4, T11 and L4 and L5 Pathologic compression fractures/ thecal sac compression T4/11, L4/5 on MRI done 12/29. Also degenerative central canal stenosis MRI C spine shows no e/o cord compression k/L ratio 1000s Velcade/dex 01/09/20 and dex 20mg x 2 days 01/20 and 01/21 Add revlimid after RT s/p zometa 01/02 Monitoring renal function Will need to resume RT and velcade/dex. To add revlimid after RT Discussed with rad-onc rt. lower rib cage pain --? lytic rib lesions. But given RUQ tnderness check U/S RUQ HTN : management per primary team On lisinopril/amlodipine will also request neuro consult given generalizd weakness Primary team and Case management coordinating care
[2020-01-24] MEDS: SODIUM CHLORIDE 1,000 ML IV SCH (05:37)
[2020-01-24 05:51] VITALS: TEMP 98.1
[2020-01-24] MEDS: GABAPENTIN 300 MG CAPSULE PO SCH ×3 (06:34→14:04)
[2020-01-24] MEDS: INSULIN SLIDING SCALE (NOVOLOG) 1 VIAL SQ SCH ×2 (06:42→12:23)
[2020-01-24 08:20] LABS: HEMOGLOBIN 8.5 GM/dL (10.7-15.3); MCH 28.9 pg (25.7-33.7); MCHC 32.7 g/dl (32.0-36.0); MEAN CELL VOLUME 88.1 fl (80-96); MEAN PLT VOLUME 7.4 fl (7.5-11.1); PLATELET COUNT 213 K/MM3 (134-434); RBC 2.95 M/mm3 (3.60-5.2); RDW 15.7 % (11.6-15.6); WHITE BLOOD COUNT 10.3 K/mm3 (4.0-10.0)
[2020-01-24 08:47] LABS: BLOOD UREA NITROGEN 26.8 mg/dL (7-18); CALCIUM 8.9 mg/dL (8.5-10.1); MAGNESIUM 1.8 mg/dL (1.8-2.4); PHOSPHOROUS 2.3 mg/dL (2.5-4.9); POTASSIUM 3.2 mmol/L (3.5-5.1); URIC ACID 4.2 mg/dL (2.6-7.2)
[2020-01-24] MEDS ORDERED: LISINOPRIL 20 MG TABLET (FP) PO SCH (08:51)
[2020-01-24] MEDS ORDERED: amLODIPine BESYLATE 10 MG TABLET (FP) PO SCH (10:00)
[2020-01-24] MEDS: PANTOPRAZOLE 40 MG TABLET PO SCH (10:38)
[2020-01-24] MEDS: ENOXAPARIN NA (PORCINE) 40 MG/0.4 ML DISP.SYRIN SQ SCH (10:38)
[2020-01-24] MEDS: oxyCODONE HCL 5 MG TABLET PO PRN (10:39)
[2020-01-24] MEDS: LIDOCAINE 5% TOPICAL PATCH TP SCH (10:40)
[2020-01-24] MEDS: INSULIN (LEVEMIR) 100 UNITS/ML UNITS SQ SCH (10:41)
[2020-01-24 10:56] VITALS: BP 158/66; PULSE 70
[2020-01-24] MEDS ORDERED: POTASSIUM CHLORIDE TABS 20 MEQ TABLET.ER (FP) PO ONE (12:12)
--- NOTE | 2020-01-24 13:07 | PN ---
Teaching Attending Note Name of Resident: Viktor Escobar ATTENDING PHYSICIAN STATEMENT I saw and evaluated the patient. I reviewed the resident's note and discussed the case with the resident. I agree with the resident's findings and plan as documented. SUBJECTIVE: Seen and examined at bedside. Pt reports RUQ pain from this morning is con sistent with her regular rib pain. On exam pt has no RUQ abdominal tenderness but has reproducible costochondral pain. No need for additional imaging. BP control improved on amlodipine 10mg and lisinopril 40mg. Pt is medically cleared for DC and will be discharged with home services. OBJECTIVE: Last Vital Signs Temp Pulse Resp BP Pulse Ox 98.1 F 70 18 158/66 97 01/24/20 10:00 01/24/20 10:00 01/24/20 10:00 01/24/20 10:00 01/24/20 10:00 PE: per resident note Labs/Imaging: reviewed ASSESSMENT AND PLAN: 69 year old female with history of HTN, HLD, DM 2, Multiple Myeloma (s/p Dexamethasone, 1 cycle of Velcade, and 1 cycle of RT), presents to ED with complaints of weakness and inability to perform ADLs. Recently admitted 01/03/2020 for multiple fractures at T11, L4-L5 w/ no spinal cord impingement & hypercalcemia of 13.4. Pt is medically cleared for DC. Will ensure that patient has appropriate home services and equipment prior to dc.
--- NOTE | 2020-01-24 13:36 | PN ---
Progress Note, Physician History of Present Illness: Pt seen and examined at bedside. She is awake and alert. She denies shortness of breath. - Current Medication List Current Medications: Active Medications Amlodipine Besylate (Norvasc -) 10 mg PO DAILY [facility] Last Admin: 01/24/20 10:39 Dose: 10 mg Documented by: Atorvastatin Calcium (Lipitor -) 40 mg PO HS [facility] Last Admin: 01/23/20 21:25 Dose: 40 mg Documented by: Enoxaparin Sodium (Lovenox -) 40 mg SQ DAILY [facility] Last Admin: 01/24/20 10:38 Dose: 40 mg Documented by: Gabapentin (Neurontin -) 300 mg PO TID [facility] Last Admin: 01/24/20 06:42 Dose: Not Given Documented by: Sodium Chloride (Normal Saline -) 1,000 mls @ 100 mls/hr IV ASDIR [facility] Last Admin: 01/24/20 05:37 Dose: 100 mls/hr Documented by: Insulin Aspart (Novolog Vial Sliding Scale -) 1 vial SQ [facility]; Protocol Last Admin: 01/24/20 12:23 Dose: 8 units Documented by: Insulin Detemir (Levemir Vial) 5 units SQ DAILY@0700 [facility] Last Admin: 01/24/20 10:41 Dose: 5 units Documented by: Lidocaine (Lidoderm Patch -) 1 patch TP DAILY [facility] Last Admin: 01/24/20 10:40 Dose: 1 patch Documented by: Lisinopril (Prinivil) 40 mg PO DAILY [facility] Last Admin: 01/24/20 10:40 Dose: 40 mg Documented by: Miscellaneous (Lidoderm Patch Removal) 1 each MC DAILY@2200 [facility] Last Admin: 01/23/20 22:08 Dose: 1 each Documented by: Oxycodone HCl (Roxicodone -) 10 mg PO Q6H PRN PRN Reason: PAIN LEVEL 6-10 Last Admin: 01/24/20 10:39 Dose: 10 mg Documented by: Pantoprazole Sodium (Protonix -) 40 mg PO DAILY [facility] Last Admin: 01/24/20 10:38 Dose: 40 mg Documented by: Polyethylene Glycol (Miralax (For Daily Use) -) 17 gm PO DAILY PRN PRN Reason: CONSTIPATION - Objective Vital Signs: Vital Signs Temperature 98.1 F 01/24/20 10:00 Pulse Rate 70 01/24/20 10:00 Respiratory Rate 18 01/24/20 10:00 Blood Pressure 158/66 01/24/20 10:00 O2 Sat by Pulse Oximetry (%) 97 01/24/20 10:00 Constitutional: Yes: Calm Eyes: Yes: Conjunctiva Clear HENT: Yes: Atraumatic Neck: Yes: Supple Cardiovascular: Yes: S1, S2 Respiratory: Yes: CTA Bilaterally Gastrointestinal: Yes: Soft Genitourinary: Yes: WNL Musculoskeletal: Yes: WNL Edema: No Neurological: Yes: Oriented Psychiatric: Yes: Oriented Labs: CBC, BMP 01/24/20 07:20 01/24/20 06:00 Assessment/Plan Current Medications Generic Name Dose Route Start Last Admin Trade Name Freq PRN Reason Stop Dose Admin Amlodipine Besylate 10 mg 01/24/20 10:00 01/24/20 10:39 Norvasc - PO 10 mg DAILY [facility] Administration Atorvastatin Calcium 40 mg 01/20/20 22:00 01/23/20 21:25 Lipitor - PO 40 mg HS [facility] Administration Enoxaparin Sodium 40 mg 01/20/20 10:00 01/24/20 10:38 Lovenox - SQ 40 mg DAILY [facility] Administration Gabapentin 300 mg 01/20/20 06:00 01/24/20 06:42 Neurontin - PO Not Given TID [facility] Sodium Chloride 1,000 mls @ 100 mls/hr 01/22/20 15:00 01/24/20 05:37 Normal Saline - IV 100 mls/hr ASDIR [facility] Administration Insulin Aspart 1 vial 01/19/20 22:00 01/24/20 12:23 Novolog Vial Sliding Scale - SQ 8 units ACHS [facility] Administration Protocol Insulin Detemir 5 units 01/22/20 10:00 01/24/20 10:41 Levemir Vial SQ 5 units DAILY@0700 [facility] Administration Lidocaine 1 patch 01/20/20 10:00 01/24/20 10:40 Lidoderm Patch - TP 1 patch DAILY [facility] Administration Lisinopril 40 mg 01/24/20 08:51 01/24/20 10:40 Prinivil PO 40 mg DAILY [facility] Administration Miscellaneous 1 each 01/20/20 22:00 01/23/20 22:08 Lidoderm Patch Removal MC 1 each DAILY@2199 [facility] Administration Oxycodone HCl 10 mg 01/20/20 09:34 01/24/20 10:39 Roxicodone - PO 10 mg Q6H PRN Administration PAIN LEVEL 6-10 Pantoprazole Sodium 40 mg 01/21/20 12:30 01/24/20 10:38 Protonix - PO 40 mg DAILY [facility] Administration Polyethylene Glycol 17 gm 01/20/20 01:00 Miralax (For Daily Use) - PO DAILY PRN CONSTIPATION Impression 1. hypercalcemia 2. multiple myelpma 3. htn 4. hld 5. dm 6. hypokalemia 7. compression fractures 8. CKD 9. LUDMILA Plan - renal function improved - pt was not taking her bp meds at home - agree with increasing lisinopril dose - repeat labs in am - monitor calcium - will need outpt follow up - discussed compliance - she is refusing placement
--- NOTE | 2020-01-24 14:27 | PN ---
Physical Exam: SUBJECTIVE: Patient seen and examined Patient denies any acute overnight events. Her blood pressure is better controlled after increased norvasc dosage. Patient is ready to go home and have [facility] proceed with home care. OBJECTIVE: Vital Signs Period Temp Pulse Resp BP Sys/Kerr Pulse Ox Last 24 Hr 98.1 F-98.7 F 70-96 18-18 157-191/66-92 97-97 GENERAL: The patient is awake, alert, and fully oriented, in no acute distress. HEAD: Normal with no signs of trauma. LUNGS: Breath sounds equal, clear to auscultation bilaterally, no wheezes, no crackles, no accessory muscle use. HEART: Regular rate and rhythm, S1, S2 without murmur, rub or gallop. ABDOMEN: Soft, nontender, nondistended, normoactive bowel sounds, no guarding, no rebound, no hepatosplenomegaly, no masses. EXTREMITIES: 2+ pulses, warm, well-perfused, no edema. Laboratory Results - last 24 hr 01/23/20 01/23/20 01/24/20 16:38 21:25 06:00 WBC RBC Hgb Hct MCV MCH MCHC RDW Plt Count MPV Sodium 140 Potassium 3.2 L Chloride 107 Carbon Dioxide 23 Anion Gap 10 BUN 26.8 H Creatinine 1.0 Est GFR (CKD-EPI)AfAm 65.64 Est GFR (CKD-EPI)NonAf 56.64 POC Glucometer 273 314 Random Glucose 185 H Uric Acid 4.2 Calcium 8.9 Phosphorus 2.3 L Magnesium 1.8 LD Total 116 01/24/20 01/24/20 01/24/20 06:36 07:20 12:21 WBC 10.3 H RBC 2.95 L Hgb 8.5 L Hct 26.0 L MCV 88.1 MCH 28.9 MCHC 32.7 RDW 15.7 H Plt Count 213 MPV 7.4 L Sodium Potassium Chloride Carbon Dioxide Anion Gap BUN Creatinine Est GFR (CKD-EPI)AfAm Est GFR (CKD-EPI)NonAf POC Glucometer 190 316 Random Glucose Uric Acid Calcium Phosphorus Magnesium LD Total Active Medications Generic Name Dose Route Start Last Admin Trade Name Freq PRN Reason Stop Dose Admin Amlodipine Besylate 10 mg 01/24/20 10:00 01/24/20 10:39 Norvasc - PO 10 mg DAILY [facility] Administration Atorvastatin Calcium 40 mg 01/20/20 22:00 01/23/20 21:25 Lipitor - PO 40 mg HS [facility] Administration Enoxaparin Sodium 40 mg 01/20/20 10:00 01/24/20 10:38 Lovenox - SQ 40 mg DAILY [facility] Administration Gabapentin 300 mg 01/20/20 06:00 01/24/20 14:04 Neurontin - PO 300 mg TID [facility] Administration Sodium Chloride 1,000 mls @ 100 mls/hr 01/22/20 15:00 01/24/20 05:37 Normal Saline - IV 100 mls/hr ASDIR [facility] Administration Insulin Aspart 1 vial 01/19/20 22:00 01/24/20 12:23 Novolog Vial Sliding Scale - SQ 8 units ACHS [facility] Administration Protocol Insulin Detemir 5 units 01/22/20 10:00 01/24/20 10:41 Levemir Vial SQ 5 units DAILY@0700 [facility] Administration Lidocaine 1 patch 01/20/20 10:00 01/24/20 10:40 Lidoderm Patch - TP 1 patch DAILY [facility] Administration Lisinopril 40 mg 01/24/20 08:51 01/24/20 10:40 Prinivil PO 40 mg DAILY [facility] Administration Miscellaneous 1 each 01/20/20 22:00 01/23/20 22:08 Lidoderm Patch Removal MC 1 each DAILY@2200 [facility] Administration Oxycodone HCl 10 mg 01/20/20 09:34 01/24/20 10:39 Roxicodone - PO 10 mg Q6H PRN Administration PAIN LEVEL 6-10 Pantoprazole Sodium 40 mg 01/21/20 12:30 01/24/20 10:38 Protonix - PO 40 mg DAILY [facility] Administration Polyethylene Glycol 17 gm 01/20/20 01:00 Miralax (For Daily Use) - PO DAILY PRN CONSTIPATION ASSESSMENT/PLAN: George is a 69F w a h/o recently diagnosed multiple myeloma seen by Dr. Lerma and started on radiation therapy, HTN, HLD, and DM who presented to the hospital for difficulty maintaining activities of daily living at home. The patient was recently admitted on 01/03/20 for vertebral compression fractures. # vertebral compression fractures - patient is unable to preform ADL at home due to lack of equipment - patients son present to pickler helper in patient care at home and organization - patients pain is managed via oxycodone - follow up with Dr. Lerma - follow up with rad onc for radiation/chemo scheduling #Home equipment for ADL - insurance dispute has been setled between the son and supplier - [facility] had not been able to initiate home care due to lack of equipment (camode, walker, ect) - items delivered on 01/23/2020 #HTN - continuing HOME MED: - lisinopril - amlodipine - gabapentin #HLD - continuing HOME MED: - lipitor #DVT prophylaxis - Lovenox #living conditions at home -will speak to social work about living arrangements Visit type - Emergency Visit Emergency Visit: Yes ED Registration Date: 01/19/20 Care time: The patient presented to the Emergency Department on the above date and was hospitalized for further evaluation of their emergent condition. - New Patient This patient is new to me today: Yes Date on this admission: 01/24/20 - Critical Care Critical Care patient: No - Discharge Referral Referred to [facility] Med [facility].C[facility] No - Medication Review Med list reviewed for High Risk Meds patients 65 and older: Yes ATTENDING PHYSICIAN STATEMENT I saw and evaluated the patient. I reviewed the resident's note and discussed the case with the resident. I agree with the resident's findings and plan as documented. SUBJECTIVE: OBJECTIVE: ASSESSMENT AND PLAN:
== END 2020-01-24 14:54 | disposition home health service (06) | DRG 840 ==
LOC: JER 15:12 → INTOOBSV 18:58 → JERBED 18:58 → J5S 20:42 → OBSVTOIN 21:10
PROVIDERS: ADMIT Internal Medicine; ATTEND Internal Medicine
DX: C90.00 Multiple myeloma not having achieved remission (principal); E43 Unspecified severe protein-calorie malnutrition; M84.48XA Pathological fracture, other site, initial encounter for fracture; N17.9 Acute kidney failure, unspecified; N18.9 Chronic kidney disease, unspecified; R26.2 Difficulty in walking, not elsewhere classified; E83.52 Hypercalcemia; E78.5 Hyperlipidemia, unspecified; E87.6 Hypokalemia; E11.9 Type 2 diabetes mellitus without complications; I12.9 Hypertensive chronic kidney disease with stage 1 through stage 4 chronic kidney disease, or unspecified chronic kidney disease; D72.829 Elevated white blood cell count, unspecified; Z91.14 Patient's other noncompliance with medication regimen; E86.0 Dehydration; Z68.22 Body mass index [BMI] 22.0-22.9, adult
CPT/HCPCS: 36415; 71045-TC-FY; 76700-TC; 76775-TC; 80048; 80053; 81003; 82962; 83540; 83550; 83615; 83735; 84100; 84484; 84550; 85025; 85027; 86850; 86900; 86901; 93005; 93010; 97116-GP; 97161-GP; 99285-25; G0378; J1100; U0003

== ENCOUNTER 2020-02-22 07:15 | Day surgery (SDC) | payer OTHER, BC ==
[~2020-02-22 07:15] MED LIST changes: -ACETAMINOPHEN 325 MG TABLET (FP) PO PRN; +BORTEZOMIB (VELCADE) 2.5 MG/ML SUB-Q INJECTION SQ ONE; -CIPROFLOXACIN HCL 0.3% OPHTH 2.5ML BOTTLE OP SCH; -CYCLOPENTOLATE HCL 1% OPHTH SOLN 2 ML BOTTLE OP SCH; +DENOSUMAB 120 MG/1.7 ML VIAL SQ ONE; +DEXAMETHASONE 4 MG TABLET (FP) PO ONE; -FLURBIPROFEN 0.03% OPHTH SOLN 2.5 ML BOTTLE OP SCH; -PHENYLEPHRINE 2.5% OPHTH SOLN 15 ML BOTTLE OP SCH; +SODIUM CHLORIDE 250 ML IV ONE; -TROPICAMIDE 1% OPHTH SOLN 15 ML BOTTLE OP SCH
[2020-02-22] MEDS ORDERED: DEXAMETHASONE 4 MG TABLET (FP) PO ONE (10:00)
[2020-02-22] MEDS ORDERED: BORTEZOMIB (VELCADE) 2.5 MG/ML SUB-Q INJECTION SQ ONE (10:00)
[2020-02-22] MEDS ORDERED: SODIUM CHLORIDE 250 ML IV ONE (10:00)
[2020-02-22] MEDS ORDERED: MAGNESIUM OXIDE 400 MG TABLET (FP) PO ONE (14:00)
[2020-02-22] MEDS ORDERED: amLODIPine BESYLATE 5 MG TABLET (FP) PO ONE ×2 (14:00→15:45)
[2020-02-22 17:15] VITALS: BP 181/76; PULSE 86; TEMP 99
== END 2020-02-22 16:15 | disposition home or self-care (01) ==
LOC: JONCCHEMO 07:15
PROVIDERS: ATTEND Nurse Practitioner Family
PROC: 3E01305 Introduction of Other Antineoplastic into Subcutaneous Tissue, Percutaneous Approach (ICD-10-PCS; principal; 2020-02-22)
PROC: 3E033GC Introduction of Other Therapeutic Substance into Peripheral Vein, Percutaneous Approach (ICD-10-PCS; 2020-02-22)
DX: Z51.11 Encounter for antineoplastic chemotherapy (principal); C90.00 Multiple myeloma not having achieved remission
CPT/HCPCS: 96360; 96401; J9041

== ENCOUNTER 2020-03-01 07:13 | Day surgery (SDC) | payer OTHER, BC ==
[~2020-03-01 07:13] MED LIST changes: -DENOSUMAB 120 MG/1.7 ML VIAL SQ ONE
[2020-03-01] MEDS ORDERED: SODIUM CHLORIDE 250 ML IV ONE (15:00)
[2020-03-01] MEDS ORDERED: BORTEZOMIB (VELCADE) 2.5 MG/ML SUB-Q INJECTION SQ ONE (15:00)
[2020-03-01] MEDS ORDERED: DEXAMETHASONE 4 MG TABLET (FP) PO ONE (15:00)
[2020-03-01 15:32] LABS: BASO % 0.6 % (0-2.0); EOS % 0.5 % (0-4.5); HEMATOCRIT 25.6 % (32.4-45.2); HEMOGLOBIN 8.4 GM/dL (10.7-15.3); LYMPH % 13.5 % (8-40); MCHC 32.9 g/dl (32.0-36.0); MEAN PLT VOLUME 7.2 fl (7.5-11.1); MONO % 11.9 % (3.8-10.2); NEUT % 73.5 % (42.8-82.8); PLATELET COUNT 247 K/MM3 (134-434); RBC 2.91 M/mm3 (3.60-5.2); RDW 16.2 % (11.6-15.6); WHITE BLOOD COUNT 7.7 K/mm3 (4.0-10.0)
[2020-03-01 15:47] LABS: ALBUMIN 3.1 g/dl (3.4-5.0); BILIRUBIN,DIRECT 0.1 mg/dL (0.0-0.2); BILIRUBIN,TOTAL 0.2 mg/dL (0.2-1); CALCIUM 9.7 mg/dL (8.5-10.1); CREATININE 1.2 mg/dL (0.55-1.3); MAGNESIUM 1.8 mg/dL (1.8-2.4); POTASSIUM 3.4 mmol/L (3.5-5.1); TOT PROT 8.2 g/dl (6.4-8.2); URIC ACID 6.5 mg/dL (2.6-7.2)
[2020-03-01] MEDS ORDERED: POTASSIUM CHLORIDE TABS 20 MEQ TABLET.ER (FP) PO ONE (15:57)
[2020-03-01 17:45] VITALS: TEMP 98.8
[2020-03-01 17:58] VITALS: BP 177/79; PULSE 80
== END 2020-03-01 16:30 | disposition home or self-care (01) ==
LOC: JONCCHEMO 07:13
PROVIDERS: ATTEND Internal Medicine Hematology & Oncology
DX: Z51.11 Encounter for antineoplastic chemotherapy (principal); C90.00 Multiple myeloma not having achieved remission
CPT/HCPCS: 36415; 80048; 80076; 83615; 83735; 84550; 85025; 96401; J9041

== ENCOUNTER 2020-03-07 13:26 | Day surgery (SDC) | payer OTHER, BC ==
[2020-03-07] MEDS ORDERED: oxyCODONE HCL 5 MG TABLET PO ONE (13:53)
[2020-03-07 14:38] LABS: BASO % 0.6 % (0-2.0); EOS % 0.3 % (0-4.5); HEMATOCRIT 25.2 % (32.4-45.2); HEMOGLOBIN 8.4 GM/dL (10.7-15.3); LYMPH % 12.3 % (8-40); MCH 29.9 pg (25.7-33.7); MCHC 33.2 g/dl (32.0-36.0); MEAN CELL VOLUME 90.2 fl (80-96); MEAN PLT VOLUME 7.1 fl (7.5-11.1); MONO % 7.6 % (3.8-10.2); NEUT % 79.2 % (42.8-82.8); PLATELET COUNT 216 K/MM3 (134-434); RBC 2.79 M/mm3 (3.60-5.2); RDW 16.5 % (11.6-15.6); WHITE BLOOD COUNT 9.7 K/mm3 (4.0-10.0)
[2020-03-07] MEDS ORDERED: FAMOTIDINE 20 MG TABLET PO ONE (14:45)
[2020-03-07] MEDS ORDERED: amLODIPine BESYLATE 5 MG TABLET (FP) PO ONE (14:45)
[2020-03-07 15:11] LABS: ALBUMIN 3.4 g/dl (3.4-5.0); BILIRUBIN,DIRECT 0.1 mg/dL (0.0-0.2); BILIRUBIN,TOTAL 0.2 mg/dL (0.2-1); BLOOD UREA NITROGEN 30.5 mg/dL (7-18); CALCIUM 9.7 mg/dL (8.5-10.1); CREATININE 1.1 mg/dL (0.55-1.3); POTASSIUM 4.3 mmol/L (3.5-5.1); TOT PROT 7.9 g/dl (6.4-8.2); URIC ACID 5.8 mg/dL (2.6-7.2)
[2020-03-07 17:35] VITALS: TEMP 98.3
[2020-03-07 17:37] VITALS: BP 174/81; PULSE 90
== END 2020-03-07 15:36 | disposition home or self-care (01) ==
LOC: JONCCHEMO 13:26
PROVIDERS: ATTEND Internal Medicine Hematology & Oncology
PROC: 3E01305 Introduction of Other Antineoplastic into Subcutaneous Tissue, Percutaneous Approach (ICD-10-PCS; principal; 2020-03-07)
PROC: 3E0337Z Introduction of Electrolytic and Water Balance Substance into Peripheral Vein, Percutaneous Approach (ICD-10-PCS; 2020-03-07)
DX: Z51.11 Encounter for antineoplastic chemotherapy (principal); C90.00 Multiple myeloma not having achieved remission; I10 Essential (primary) hypertension; E78.5 Hyperlipidemia, unspecified; E11.9 Type 2 diabetes mellitus without complications
CPT/HCPCS: 36415; 80048; 80076; 83615; 83735; 84550; 85025; 96360; 96401; J9041

== ENCOUNTER 2020-03-14 06:54 | Day surgery (SDC) | payer OTHER, BC ==
[2020-03-14] MEDS ORDERED: SODIUM CHLORIDE 250 ML IV ONE (09:00)
[2020-03-14] MEDS ORDERED: BORTEZOMIB (VELCADE) 2.5 MG/ML SUB-Q INJECTION SQ ONE (10:00)
[2020-03-14] MEDS ORDERED: DEXAMETHASONE 4 MG TABLET (FP) PO ONE (10:00)
[2020-03-14] MEDS ORDERED: oxyCODONE HCL 5 MG TABLET PO ONE (14:30)
[2020-03-14] MEDS ORDERED: amLODIPine BESYLATE 5 MG TABLET (FP) PO ONE (14:30)
[2020-03-14 14:40] LABS: BASO % 0.5 % (0-2.0); EOS % 1.1 % (0-4.5); HEMATOCRIT 24.7 % (32.4-45.2); HEMOGLOBIN 8.1 GM/dL (10.7-15.3); LYMPH % 8.4 % (8-40); MCH 29.7 pg (25.7-33.7); MCHC 32.7 g/dl (32.0-36.0); MEAN CELL VOLUME 90.8 fl (80-96); MEAN PLT VOLUME 8.1 fl (7.5-11.1); MONO % 6.4 % (3.8-10.2); NEUT % 83.6 % (42.8-82.8); PLATELET COUNT 215 K/MM3 (134-434); RBC 2.73 M/mm3 (3.60-5.2); RDW 17.2 % (11.6-15.6)
[2020-03-14 15:08] LABS: BILIRUBIN,DIRECT 0.1 mg/dL (0.0-0.2); BILIRUBIN,TOTAL 0.5 mg/dL (0.2-1); BLOOD UREA NITROGEN 20.5 mg/dL (7-18); CALCIUM 9.6 mg/dL (8.5-10.1); POTASSIUM 3.8 mmol/L (3.5-5.1); TOT PROT 7.4 g/dl (6.4-8.2); URIC ACID 5.6 mg/dL (2.6-7.2)
[2020-03-14 17:18] VITALS: PULSE 80; TEMP 98.8
[2020-03-14 17:21] VITALS: BP 162/69
== END 2020-03-14 15:30 | disposition home or self-care (01) ==
LOC: JONCCHEMO 06:54
PROVIDERS: ATTEND Internal Medicine Hematology & Oncology
PROC: 3E01305 Introduction of Other Antineoplastic into Subcutaneous Tissue, Percutaneous Approach (ICD-10-PCS; principal; 2020-03-14)
PROC: 3E0337Z Introduction of Electrolytic and Water Balance Substance into Peripheral Vein, Percutaneous Approach (ICD-10-PCS; 2020-03-14)
DX: Z51.11 Encounter for antineoplastic chemotherapy (principal); C90.00 Multiple myeloma not having achieved remission; I10 Essential (primary) hypertension; E78.5 Hyperlipidemia, unspecified; E11.9 Type 2 diabetes mellitus without complications
CPT/HCPCS: 36415; 80048; 80076; 83615; 83735; 84550; 85025; 96360; 96401; J9041

== ENCOUNTER 2020-03-21 07:10 | Day surgery (SDC) | payer OTHER, BC ==
--- OUTSIDE RECORDS SUMMARY | 2020-03-21 07:17 | XMS ---
:1950 [facility] Providers Name Role Phone SHANITA BRAUN Unavailable Unavailable ED STAFF PHYSICIAN, STAFF Unavailable Unavailable Solomon Green MD Unavailable Solomon Green MD Unavailable Solomon Green MD Unavailable Solomon Green MD Unavailable Solmoon Green MD Unavailable Solomon Green MD Unavailable Solomon Green MD Unavailable Re-disclosure Warning The records that you are about to access may contain information from federally- assisted alcohol or drug abuse programs. If such information is present, then the following federally mandated warning applies: This information has been disclosed to you from records protected by federal confidentiality rules (42 CFR part 2). The federal rules prohibit you from making any further disclosure of this information unless further disclosure is expressly permitted by the written consent of the person to whom it pertains or as otherwise permitted by 42 CFR part 2. A general authorization for the release of medical or other information is NOT sufficient for this purpose. The Federal rules restrict any use of the information to criminally investigate or prosecute any alcohol or drug abuse patient.The records that you are about to access may contain highly sensitive health information, the redisclosure of which is protected by Article 27-F of the [place] State Public Health law. If you continue you may haveaccess to information: Regarding HIV / AIDS; Provided by facilities licensed or operated by the [facility] Office of Mental Health; or Provided by the [facility] Office for People With Developmental Disabilities. If such information is present, then the following [facility] mandated warning applies: This information has been disclosed to you from confidential records which are protected by state law. State law prohibits you from making any further disclosure of this information without the specific written consent of the person to whom it pertains, or as otherwise permitted by law. Any unauthorized further disclosure in violation of state law may result in a fine or fdc sentence or both. A general authorization for the release of medical or other information is NOT sufficient authorization for further disclosure. Encounters Encounter Providers Location Date Indications Data Source(s ) Inpatient Attender: SHANITA CARPENTER 10/06/2019 [facility] 01:30:00 PM EDT [facility] AAttender: STAFF ED - 10/20/2019 STAFF 05:15:00 PM EDT PHYSICIANAdmitter: SHANITA DIEHL AReferrer: SHANITA DIEHL A Patient discharged. Inpatient Attender: Solomon SahaHAL5 05/18/2019 04:44:00 [facility] MDAttender: STAFF ED STAFF PM EST - 05/23/2019 [facility] PHYSICIANAdmitter: Solomon 04:18:00 PM [facility] Peter MDReferrer: Solomon Green MD Patient discharged. Immunizations Vaccine Date Status Description Data Source(s) New in 2011. IIV4 05/23/2019 completed [facility] 03:31:00 PM EST [facility] pneum[facility] 11:33:00 AM EST [facility] er Medications Medication Brand Start Product Dose Route Administrative Pharmacy St at Indications Reaction Description Data Name Date Form Instructions Instructions Source(s) Acetaminoph oxyCOD 1 complet [facility] nt en 325 MG / ONE-ac [facility] Oxycodone etamin Medical Hydrochlori ophen Center de 5 MG 5 Oral Tablet mg-325 oxyCODONE-a mg cetaminophe Tablet n 5 mg-325 , mg Tablet, Ordere Ordered By: d By: Nathaly Diaz MDDirection Ann, s: 1 tablet MDDire oral every ctions eight hours : 1 PRN pain tablet oral every eight hours PRN pain Metformin sitagl 1 complet JanUMET Sa int hydrochlori iptin- ed Jonathan s de 1000 MG metfor Medical / min Center sitagliptin ( 50 MG Oral ET) 50 Tablet mg-1,0 [] 00 mg sitagliptin Tablet -metformin , () Ordere 50 mg-1,000 d By: mg Tablet, Sein Ordered By: Nathaly Juarez Ann, MDDire MDDirection ctions s: 1 tablet : 1 oral twice tablet a day oral twice a day Sodium sodium 1 complet Enema [facility] Phosphate, phosph ed [place]cia Dibasic ates Medical 59.3 MG/ML (Enema Center / Sodium ) 19 Phosphate, gram-7 Monobasic gram/1 161 MG/ML 18 mL Enema Enema, sodium Ordere phosphates d By: (Enema) 19 Sein gram-7 Ann, gram/118 mL MDDire Enema, ctions Ordered By: : 1 in Ann, each MDDirection per s: 1 each rectum per rectum daily daily PRN PRN constipatio consti n pation Docusate sennos 2 complet Saint Sodium 50 ides-d ed Lucrecia MG / ocusat Medical sennosides, e Center CARE HOME 8.6 MG sodium Oral Tablet 8.6 sennosides- mg-50 docusate mg sodium 8.6 Tablet mg-50 mg , Tablet, Ordere Ordered By: d By: Nathaly Diaz MDDirection Ann, s: 2 tablet MDDire oral daily ctions at bedtime : 2 for tablet constipatio oral n daily at bedtim e for consti pation glimepiride glimep 1 complet [place] nt 4 MG Oral iride ed [place] Tablet 4 mg Medical glimepiride Tablet Center 4 mg , Tablet, Ordere Ordered By: d By: estefania Maza MDDirection Alyssia s: 1 tablet , oral daily MDDire with ctions breakfast : 1 tablet oral daily with breakf ast Acetaminoph oxyCOD 1 complet [place] nt en 325 MG / ONE-ac ed Jonathan s Oxycodone etamin Medical Hydrochlori ophen Center de 5 MG 5 Oral Tablet mg-325 oxyCODONE-a mg cetaminophe Tablet n 5 mg-325 , mg Tablet, Ordere Ordered By: d By: estefania Maza MDDirection Alyssia s: 1 tablet , oral every MDDire eight hours ctions PRN pain : 1 tablet oral every eight hours PRN pain POLYETHYLEN polyet 1 complet [facility] nt E GLYCOL hylene ed [place] 3350 142 glycol Medical MG/ML Oral 3350 Center Solution 17 polyethylen gram/d e glycol ose 3350 17 Powder gram/dose , Powder, Ordere Ordered By: d By: estefania Maza MDDirection Alyssia s: 1 each , oral daily MDDire at bedtime ctions PRN : 1 constipatio each n oral daily at bedtim e PRN consti pation Docusate sennos 2 complet [facility] Sodium 50 ides-d ed [place] MG / ocusat Medical sennosides, e Center CARE HOME 8.6 MG sodium Oral Tablet 8.6 sennosides- mg-50 docusate mg sodium 8.6 Tablet mg-50 mg , Tablet, Ordere Ordered By: d By: estefania Maza MDDirection Alyssia s: 2 tablet , oral daily MDDire at bedtime ctions for : 2 constipatio tablet n oral daily at bedtim e for consti pation Sodium sodium 1 complet Enema [facility] Phosphate, phosph ed [place] Dibasic ates Medical 59.3 MG/ML (Enema Center / Sodium ) 19 Phosphate, gram-7 Monobasic gram/1 161 MG/ML 18 mL Enema Enema, sodium Ordere phosphates d By: (Enema) 19 Stephe gram-7 n gram/118 mL Alyssia Enema, , Ordered By: MDDire Peter ctron Alyssia, : 1 MDDirection each s: 1 each per per rectum rectum daily PRN daily constipatio PRN n consti pation Bisacodyl 5 bisaco 1 complet Laxative [facility] MG Delayed dyl ed (bisacodyl) Maricel sephs Release (Laxat Medical Oral Tablet jimmy Center bisacodyl (bisac (Laxative odyl)) (bisacodyl) 5 mg ) 5 mg tablet tablet,kit ,delay yed release ed (DR/EC), releas Ordered By: maggi Green (/EC Alyssia, ), MDDirection Ordere s: 1 tablet d By: oral daily Stephe PRN n constipatio Alyssia n , MDDire ctions : 1 tablet oral daily PRN consti pation Hydralazine hydrAL 1 complet [place] nt Hydrochlori AZINE ed [place] de 50 MG 50 mg Medical Oral Tablet Tablet Center hydrALAZINE , 50 mg Ordere Tablet, d By: Ordered By: Ann Mckinney MDDirection MDDire s: 1 tablet ctions oral twice : 1 a day for tablet high blood oral pressure twice a day for high blood pressu re atorvastati atorva 1 complet [place] nt n 40 MG statin ed [place] Oral Tablet 40 mg Medical atorvastati Tablet Center n 40 mg , Tablet, Ordere Ordered By: d By: estefania Mazairection Alyssia s: 1 tablet , oral daily MDDire at bedtime ctions : 1 tablet oral daily at bedtim e 24 HR metopr 1 complet [facility] metoprolol olol ed [place] succinate succin Medical 50 MG ate 50 Center Extended mg Release Tablet Oral Tablet Extend metoprolol ed succinate Releas 50 mg e 24 Tablet hr, Extended Ordere Release 24 d By: hr, Ordered Sein By: Ann Diaz MDDire MDDirection ctions s: 1 tablet : 1 oral daily tablet oral daily Aspirin 81 aspiri 1 complet Anand t MG Delayed n 81 ed [place] Release mg Medical Oral Tablet tablet Center aspirin 81 ,delay mg ed tablet,kit releas yed release e (/EC), (/EC Ordered By: )Peter, kristina By: MDDirection Stephe s: 1 tablet n oral daily Alyssia , MDDire ctions : 1 tablet oral daily olopatadine olopat 1 complet [place] nt 1 MG/ML adine ed [place] Ophthalmic 0.1 % Medical Solution Drops, Center olopatadine Ordere 0.1 % d By: Drops, Sein Ordered By: Nathaly Juarez MDDire MDDirection ctions s: 1 drop : 1 ophthalmic, drop both eyes ophtha three times lmic, a day both eyes three times a day Amlodipine amlodi 1 complet Anand t 5 MG / pine-b ed [place] Benazepril enazep Medical hydrochlori ril 5 Center de 20 MG mg-20 Oral mg Capsule Capsul amlodipine- e, benazepril Ordere 5 mg-20 mg d By: Capsule, Stephe Ordered By: Flores MDDirection MDDire s: 1 ctions capsule : 1 oral daily capsul e oral daily POLYETHYLEN polyet 1 complet [place] nt E GLYCOL hylene ed [place] 3350 142 glycol Medical MG/ML Oral 3350 Center Solution 17 polyethylen gram/d e glycol ose 3350 17 Powder gram/dose , Powder, Ordere Ordered By: d By: Nathaly Diaz MDDirection Ann, s: 1 each MDDire oral daily ctions at bedtime : 1 PRN each constipatio oral n daily at bedtim e PRN consti pation olopatadine olopat 1 complet [place] nt 1 MG/ML adine ed [place] Ophthalmic 0.1 % Medical Solution Drops, Center olopatadine Ordere 0.1 % d By: Drops, Stephe Ordered By: estefania Cade, MDDirection MDDire s: 1 drop ctions ophthalmic, : 1 both eyes drop three times ophtha a day lmic, both eyes three times a day atorvastati atorva 1 complet [place] nt n 40 MG statin ed [place] Oral Tablet 40 mg Medical atorvastati Tablet Center n 40 mg , Tablet, Ordere Ordered By: d By: Nathaly Diaz MDDirection Ann, s: 1 tablet MDDire oral daily ctions at bedtime : 1 tablet oral daily at bedtim e Aspirin 81 aspiri 1 complet Anand t MG Delayed n 81 ed [place] Release mg Medical Oral Tablet tablet Center aspirin 81 ,delay mg ed tablet,kit releas yed release e (DR/EC), (DR/EC Ordered By: ), Shirley Diaze MDDirection d By: s: 1 tablet Sein oral daily Ann, MDDire ctions : 1 tablet oral daily 24 HR metopr 1 complet [facility] metoprolol olol ed [place] succinate succin Medical 50 MG ate 50 Center Extended mg Release Tablet Oral Tablet Extend metoprolol ed succinate Releas 50 mg e 24 Tablet hr, Extended Ordere Release 24 d By: hr, Ordered Stephe By: Alyssia Vargas MDDirection , s: 1 tablet MDDire oral daily ctions : 1 tablet oral daily Metformin sitagl 1 complet JulUMET Sa int hydrochlori iptin- ed Jonathan s de 1000 MG metfor Medical / min Center sitagliptin (JanUM 50 MG Oral ET) 50 Tablet mg-1,0 [] 00 mg sitagliptin Tablet -metformin , () Ordere 50 mg-1,000 d By: mg Tablet, Stephe Ordered By: estefania Cade, , MDDirection MDDire s: 1 tablet ctions oral twice : 1 a day tablet oral twice a day glimepiride glimep 1 complet [place] nt 4 MG Oral iride ed [place] Tablet 4 mg Medical glimepiride Tablet Center 4 mg , Tablet, Ordere Ordered By: d By: Nathaly Diaz MDDirection Ann, s: 1 tablet MDDire oral daily ctions with : 1 breakfast tablet oral daily with breakf ast Hydralazine hydrAL 1 complet [place] nt Hydrochlori AZINE ed [place] de 50 MG 50 mg Medical Oral Tablet Tablet Center hydrALAZINE , 50 mg Ordere Tablet, d By: Ordered By: Alyssia Francis MDDirection , s: 1 tablet MDDire oral twice ctions a day for : 1 high blood tablet pressure oral twice a day for high blood pressu re Bisacodyl 5 bisaco 1 complet Laxative [facility] MG Delayed dyl ed (bisacodyl) Maricel sephs Release (Laxat Medical Oral Tablet jimmy Center bisacodyl (bisac (Laxative odyl)) (bisacodyl) 5 mg ) 5 mg tablet tablet,kit ,delay yed release ed (DR/EC), releas Ordered By: maggi Juarez, (DR/EC MDDirection ), s: 1 tablet Ordere oral daily d By: PRN Sein constipatio estefania Juarez MDDire ctions : 1 tablet oral daily PRN consti pation Amlodipine amlodi 1 complet Anand t 5 MG / pine-b ed [place] Benazepril enazep Medical hydrochlori ril 5 Center de 20 MG mg-20 Oral mg Capsule Capsul amlodipine- e, benazepril Ordere 5 mg-20 mg d By: Capsule, Sein Ordered By: Nathaly Juarez MDDire MDDirection ctions s: 1 : 1 capsule capsul oral daily e oral daily Insurance Providers Payer name Policy type Policy ID Covered Covered republican's Policy P augustina / Coverage republican ID relationship to [employer] [facility] type [place] BLUE CROSS [id number] SP [id number] SUPP PLAN MEDICARE [id number] SP [id number] BC PPO [id number] SP [id number] BLUE CROSS [id number] SP [id number] SUPP PLAN M [id number] 01 [id number] M [id number] 01 [id number] BLUE CROSS O [id number] 01 [id number] BLUE CROSS O [id number] 01 [id number] M [id number] 01 [id number] M [id number] 01 [id number] MEDICARE [id number] SP [id number] BC PPO [id number] SP [id number] BLUE CROSS O [id number] 01 [id number] SECONDARY M [id number] 01 [id number] A MEDICARE [id number] SP [id number] A Problems, Conditions, and Diagnoses Code Display Name Description Problem Type Effective Data Dates Source(s) D64.9 Anemia, ANEMIA, Diagnosis 10/20/2019 [facility] unspecified UNSPECIFIED 05:15:00 PM Medical EDT Center E78.5 Hyperlipidemia, HYPERLIPIDEMIA, Diagnosis 10/20/2019 [facility] unspecified UNSPECIFIED 05:15:00 PM Medical EDT Center E87.6 Hypokalemia HYPOKALEMIA Diagnosis 10/20/2019 [facility] 05:15:00 PM Medical EDT Center E11.65 Type 2 diabetes TYPE 2 DIABETES Diagnosis 10/20/2019 [facility] mellitus with MELLITUS WITH 05:15:00 PM Medical hyperglycemia HYPERGLYCEMIA EDT Center J96.01 Acute respiratory ACUTE RESPIRATORY Diagnosis 10/20/2019 [facility] failure with FAILURE WITH 05:15:00 PM Medical hypoxia HYPOXIA EDT Center J12.89 Other viral OTHER VIRAL Diagnosis 10/20/2019 [facility] pneumonia PNEUMONIA 05:15:00 PM Medical EDT Center U07.1 COVID-19 ACUTE COVID-19 ACUTE Diagnosis 10/20/2019 [facility] RESPIRATORY RESPIRATORY 05:15:00 PM Medical DISEASE DISEASE EDT Center Z79.84 halfway TELECOM COORDINATOR Diagnosis 10/20/2019 [facility] (current) use of (CURRENT) USE OF 05:15:00 PM M edical oral hypoglycemic ORAL HYPOGLYCEMIC EDT Center drugs DRUGS J18.9 Pneumonia, PNEUMONIA, Diagnosis 10/06/2019 [facility] unspecified UNSPECIFIED 01:30:00 PM Medical organism ORGANISM EDT Center 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 05/23/2019 [facility] thyroid nodule THYROID NODULE 04:18:00 PM Medic al EST Center I10 Essential ESSENTIAL Diagnosis 05/23/2019 [facility] (primary) (PRIMARY) 04:18:00 PM Medical hypertension HYPERTENSION EST Center I16.0 Hypertensive HYPERTENSIVE Diagnosis 05/23/2019 [facility] urgency URGENCY 04:18:00 PM Medical EST Center E11.9 Type 2 diabetes TYPE 2 DIABETES Diagnosis 05/23/2019 [facility] mellitus without MELLITUS WITHOUT 04:18:00 PM M edical complications COMPLICATIONS EST Center M84.421A Pathological PATHOLOGICAL Diagnosis 05/18/2019 [facility] phs fracture, right FRACTURE, RIGHT 04:44:00 PM Med ical humerus, initial HUMERUS, INIT FOR EST C enter encounter for FX fracture Results ID Date Data Source [id number] 01/19/2020 08:00:00 PM EDT [facility] Name Value Range Interpretation Description Data Sup porting Code Source(s) Document(s ) SARS [facility] coronavirus 2 RNA This lab was ordered by [facility] and reported by [facility]. ID Date Data Source [id number] 01/03/2020 10:35:00 AM EDT [facility] Name Value Range Interpretation Description Data Sup porting Code Source(s) Document(s ) SARS [facility] CORONAVIRUS 2 RNA This lab was ordered by [facility] and reported by [facility]. ID Date Data Source [id number] 12/27/2019 12:00:00 AM EDT [facility] Name Value Range Interpretation Code Description Data Debra rce(s) Supporting Document(s ) 2019-nCoV [facility] RNA XXX TOM+probe- Imp This lab was ordered by [facility] and reported by [employer]. ID Date Data Source [id number] 12/06/2019 12:00:00 AM EDT [facility] Name Value Range Interpretation Code Description Data Debra rce(s) Supporting Document(s ) 2019-nCoV [facility] RNA XXX TOM+probe- Imp This lab was ordered by [facility] and reported by [employer] ID Date Data Source Liver 10/19/2019 06:58:00 AM EDT [facility] Profile.[id number] Name Value Range Interpretation Description Data Sup porting Code Source(s) Document(s ) Aspartate 14-36 <content [facility] aminotransferase styleCode="Bold"> Abiel hs [Enzymatic Aspartate Medical activity/volume] Aminotransferase Center in Serum or Plasma (AST) </content>23 IU/L<content styleCode="Italic s"> (14-36 IU/L)</content> Alanine 7-30 Above high <content Saint aminotransferase normal styleCode="Bold"> Abiel hs [Enzymatic Alanine Medical activity/volume] Aminotransferase Center in Serum or Plasma (ALT) </content>47 IU/L H<content styleCode="Italic s"> (7-30 IU/L)</content> Bilirubin.total 0.2-1.3 <content Saint [Mass/volume] in styleCode="Bold"> Abiel hs Serum or Plasma Bilirubin Total Medical </content>0.4 Center MG/DL<content styleCode="Italic s"> (0.2-1.3 MG/DL)</content> Alkaline 38-126 Above high <content Saint phosphatase normal styleCode="Bold"> Lucrecia [Enzymatic Alkaline Medical activity/volume] Phosphatase (ALP) Cente r in Serum or Plasma </content>139 IU/L H<content styleCode="Italic s"> (38-126 IU/L)</content> Albumin 3.5-5.0 Below low <content Saint [Mass/volume] in normal styleCode="Bold"> Abiel hs Serum or Plasma Albumin Medical </content>3.2 Center G/DL L<content styleCode="Italic s"> (3.5-5.0 G/DL)</content> ID Date Data Source HematologyRou.[id number] 10/19/2019 06:58:00 [facility] Name Value Range Interpretation Description Data Sup porting Code Source(s) Document(s ) Leukocytes 4.4-11.0 Above high <content Saint [#/volume] in normal styleCode="Bold [place] Blood by ">White Blood Medical Automated count Cell Count Center </content>12.89 KCUMM H<content styleCode="Ital ics"> (4.4-11.0 KCUMM)</content > Hemoglobin 12.3-16. Below low normal <content Saint [Mass/volume] in 0 styleCode="Bold [place] Blood ">Hemoglobin Medical </content>10.2 Center G/DL L<content styleCode="Ital ics"> (12.3-16.0 G/DL)</content> Erythrocytes 4.0-5.1 Below low normal <content Saint [#/volume] in styleCode="Bold [place] Blood by ">Red Blood Medical Automated count Cell Count Center </content>3.66 MCUMM L<content styleCode="Ital ics"> (4.0-5.1 MCUMM)</content > Hematocrit 36.0-46. Below low normal <content Saint [Volume 0 styleCode="Bold [place] Fraction] of ">Hematocrit Medical Blood by </content>31.6 Center Automated count % L<content styleCode="Ital ics"> (36.0-46.0 %)</content> Erythrocyte mean 80.0-100 <content [facility] corpuscular .0 styleCode="Bold [place] volume [Entitic ">Mean Medical volume] by Corpuscular Center Automated count Volume </content>86.3 FL<content styleCode="Ital ics"> (80.0-100.0 FL)</content> Erythrocyte mean 32.0-37. <content [facility] corpuscular 0 styleCode="Bold [place] hemoglobin ">Mean Corpus. Medical concentration Hgb Center [Mass/volume] by Concentration Automated count (MCHC) </content>32.3 G/DL<content styleCode="Ital ics"> (32.0-37.0 G/DL)</content> Erythrocyte mean 26.0-34. <content [facility] corpuscular 0 styleCode="Bold [place] hemoglobin ">Mean Medical [Entitic mass] Corposcular Center by Automated Hemoglobin count </content>27.9 PG<content styleCode="Ital ics"> (26.0-34.0 PG)</content> Platelets 130-400 Above high <content Saint [#/volume] in normal styleCode="Bold [place] Blood by ">Platelet Medical Automated count Count Center </content>473 KCUMM H<content styleCode="Ital ics"> (130-400 KCUMM)</content > Erythrocyte 11.5-14. <content Saint distribution 5 styleCode="Bold [place] width [Ratio] by ">Red Cell Medical Automated count Distribution Center Width </content>13.1 %<content styleCode="Ital ics"> (11.5-14.5 %)</content> UNK 0 <content Saint styleCode="Bold [place] ">Nucleated Red Medical Blood Cell Center </content>0.0 /100<content styleCode="Ital ics"> (0 /100)</content> Platelet mean 8.0-11.0 <content Saint volume [Entitic styleCode="Bold [place] volume] in Blood ">Mean Platelet Medical by Automated Volume Center count </content>9.6 FL<content styleCode="Ital ics"> (8.0-11.0 FL)</content> UNK 0.0 <content Saint styleCode="Bold [place] ">Nucleated Red Medical Blood Cell Center Count </content>0.00 KCUMM<content styleCode="Ital ics"> (0.0 KCUMM)</content > ID Date Data Source GFR(Creatinine).[id number] 10/19/2019 06:58:00 AM EDT [facility] 0-0400 Name Value Range Interpretation Code Description Data Debra rce(s) Supporting Document(s ) UNK > 60 <content [facility] styleCode="Bold"> Medical Cent er EGFR </content>70 GFR<content styleCode="Italic s"> (> 60 GFR)</content> ID Date Data Source [id number] 10/19/2019 06:58:00 AM EDT [facility] -0400 Name Value Range Interpretation Description Data Sup porting Code Source(s) Document(s ) Ferritin 7-264 <content Saint [Mass/volume] in styleCode="Gissel [facility] Serum or Plasma ">Ferritin Medical </content>245 Center NG/ML<content styleCode="Ital ics"> (7-264 NG/ML)</content > UNK >= 1.0 Below low normal <content Saint styleCode="Bold [place] ">AG Ratio Medical </content>0.9 Center L<content styleCode="Ital ics"> (>= 1.0 )</content> UNK 2.3-3.5 <content Saint styleCode="Bold [place] ">Globulin Medical </content>3.4 Center G/DL<content styleCode="Ital ics"> (2.3-3.5 G/DL)</content> Protein 6.3-8.2 <content Saint [Mass/volume] in styleCode="Bold [facility] Serum or Plasma ">Total Protein Medical </content>6.6 Center G/DL<content styleCode="Ital ics"> (6.3-8.2 G/DL)</content> Lactate 316-618 <content Saint dehydrogenase styleCode="Gissel Singer [Enzymatic ">Lactate Medical activity/volume] Dehydrogenase Center in Serum or (LDH) Plasma by </content>379 Pyruvate to IU/L<content lactate reaction styleCode="Ital ics"> (316-618 IU/L)</content> ID Date Data Source [facility].[id number] 10/19/2019 06:58:[address] [facility] Name Value Range Interpretation Description Data Sup porting Code Source(s) Document(s ) Potassium 3.5-5.3 <content Saint [Moles/volume] in styleCode="Bold"> Isiah phs Serum or Plasma Potassium Medical </content>4.4 Center MEQ/L<content styleCode="Italic s"> (3.5-5.3 MEQ/L)</content> Carbon dioxide, 22-30 Above high <content Saint total normal styleCode="Bold"> [place] [Moles/volume] in Carbon Dioxide Medical Serum or Plasma </content>31 Center MEQ/L H<content styleCode="Italic s"> (22-30 MEQ/L)</content> Sodium 137-145 Below low <content Saint [Moles/volume] in normal styleCode="Bold"> Isiah phs Serum or Plasma Sodium Medical </content>134 Center MEQ/L L<content styleCode="Italic s"> (137-145 MEQ/L)</content> Chloride 98-107 Below low <content Saint [Moles/volume] in normal styleCode="Bold"> Isiah phs Serum or Plasma Chloride Medical </content>96 Center MEQ/L L<content styleCode="Italic s"> (98-107 MEQ/L)</content> Glucose 74-106 Above high <content Saint [Mass/volume] in normal styleCode="Bold"> Abiel hs Serum or Plasma Glucose Medical </content>342 Center MG/DL H<content styleCode="Italic s"> (74-106 MG/DL)</content> UNK > 60 <content Saint styleCode="Bold"> [place] EGFR </content>70 Medical GFR<content Center styleCode="Italic s"> (> 60 GFR)</content> Creatinine 0.5-1.3 <content Saint [Mass/volume] in styleCode="Bold"> Abiel hs Serum or Plasma Creatinine Medical </content>1.0 Center MG/DL<content styleCode="Italic s"> (0.5-1.3 MG/DL)</content> UNK 7-17 Above high <content Saint normal styleCode="Bold"> Lucrceia BUN </content>39 Medical MG/DL H<content Center styleCode="Italic s"> (7-17 MG/DL)</content> Calcium 8.4-10. Above high <content [facility] [Mass/volume] in 2 normal styleCode="Bold"> Abiel hs Serum or Plasma Calcium Medical </content>10.7 Center MG/DL H<content styleCode="Italic s"> (8.4-10.2 MG/DL)</content> Bilirubin.total 0.2-1.3 <content [facility] [Mass/volume] in styleCode="Bold"> Abiel hs Serum or Plasma Bilirubin Total Medical </content>0.4 Center MG/DL<content styleCode="Italic s"> (0.2-1.3 MG/DL)</content> Albumin 3.5-5.0 Below low <content [facility] [Mass/volume] in normal styleCode="Bold"> Abiel hs Serum or Plasma Albumin Medical </content>3.2 Center G/DL L<content styleCode="Italic s"> (3.5-5.0 G/DL)</content> Alanine 7-30 Above high <content [facility] aminotransferase normal styleCode="Bold"> [facility]iel hs [Enzymatic Alanine Medical activity/volume] Aminotransferase Center in Serum or Plasma (ALT) </content>47 IU/L H<content styleCode="Italic s"> (7-30 IU/L)</content> Alkaline 38-126 Above high <content [facility] phosphatase normal styleCode="Bold"> [facility] [Enzymatic Alkaline Medical activity/volume] Phosphatase (ALP) Cente r in Serum or Plasma </content>139 IU/L H<content styleCode="Italic s"> (38-126 IU/L)</content> Aspartate 14-36 <content [facility] aminotransferase styleCode="Bold"> [facility]iel hs [Enzymatic Aspartate Medical activity/volume] Aminotransferase Center in Serum or Plasma (AST) </content>23 IU/L<content styleCode="Italic s"> (14-36 IU/L)</content> ID Date Data Source Liver 10/17/2019 07:30:00 AM EDT [facility] Profile.[id number] Name Value Range Interpretation Description Data Sup porting Code Source(s) Document(s ) Alanine 7-30 Above high <content [facility] aminotransferase normal styleCode="Bold"> Abiel hs [Enzymatic Alanine Medical activity/volume] Aminotransferase Center in Serum or Plasma (ALT) </content>56 IU/L H<content styleCode="Italic s"> (7-30 IU/L)</content> Alkaline 38-126 Above high <content [facility] phosphatase normal styleCode="Bold"> [place] [Enzymatic Alkaline Medical activity/volume] Phosphatase (ALP) Cente r in Serum or Plasma </content>152 IU/L H<content styleCode="Italic s"> (38-126 IU/L)</content> Aspartate 14-36 <content [facility] aminotransferase styleCode="Bold"> Abiel hs [Enzymatic Aspartate Medical activity/volume] Aminotransferase Center in Serum or Plasma (AST) </content>36 IU/L<content styleCode="Italic s"> (14-36 IU/L)</content> Bilirubin.total 0.2-1.3 <content [facility] [Mass/volume] in styleCode="Bold"> Abiel hs Serum or Plasma Bilirubin Total Medical </content>0.5 Center MG/DL<content styleCode="Italic s"> (0.2-1.3 MG/DL)</content> Albumin 3.5-5.0 <content [facility] [Mass/volume] in styleCode="Bold"> Abiel hs Serum or Plasma Albumin Medical </content>3.6 Center G/DL<content styleCode="Italic s"> (3.5-5.0 G/DL)</content> ID Date Data Source HematologyRou.[id number] 10/17/2019 07:30:00 AM EDT [facility] 0400 Name Value Range Interpretation Description Data Sup porting Code Source(s) Document(s ) Erythrocytes 4.0-5.1 Below low normal <content [facility] [#/volume] in styleCode="Bold [place] Blood by ">Red Blood Medical Automated count Cell Count Center </content>3.99 MCUMM L<content styleCode="Ital ics"> (4.0-5.1 MCUMM)</content > Hematocrit 36.0-46. Below low normal <content [facility] [Volume 0 styleCode="Bold [place] Fraction] of ">Hematocrit Medical Blood by </content>34.9 Center Automated count % L<content styleCode="Ital ics"> (36.0-46.0 %)</content> Hemoglobin 12.3-16. Below low normal <content [facility] [Mass/volume] in 0 styleCode="Bold [place] Blood ">Hemoglobin Medical </content>11.2 Center G/DL L<content styleCode="Ital ics"> (12.3-16.0 G/DL)</content> Leukocytes 4.4-11.0 Above high <content [facility] [#/volume] in normal styleCode="Bold [place] Blood by ">White Blood Medical Automated count Cell Count Center </content>13.60 KCUMM H<content styleCode="Ital ics"> (4.4-11.0 KCUMM)</content > Erythrocyte mean 26.0-34. <content [facility] corpuscular 0 styleCode="Bold [place] hemoglobin ">Mean Medical [Entitic mass] Corposcular Center by Automated Hemoglobin count </content>28.1 PG<content styleCode="Ital ics"> (26.0-34.0 PG)</content> Erythrocyte mean 32.0-37. <content [facility] corpuscular 0 styleCode="Bold [place] hemoglobin ">Mean Corpus. Medical concentration Hgb Center [Mass/volume] by Concentration Automated count (MCHC) </content>32.1 G/DL<content styleCode="Ital ics"> (32.0-37.0 G/DL)</content> Erythrocyte 11.5-14. <content [facility] distribution 5 styleCode="Bold [place] width [Ratio] by ">Red Cell Medical Automated count Distribution Center Width </content>13.2 %<content styleCode="Ital ics"> (11.5-14.5 %)</content> Erythrocyte mean 80.0-100 <content [facility] corpuscular .0 styleCode="Bold [place] volume [Entitic ">Mean Medical volume] by Corpuscular Center Automated count Volume </content>87.5 FL<content styleCode="Ital ics"> (80.0-100.0 FL)</content> Platelet mean 8.0-11.0 <content [facility] volume [Entitic styleCode="Bold [place] volume] in Blood ">Mean Platelet Medical by Automated Volume Center count </content>9.9 FL<content styleCode="Ital ics"> (8.0-11.0 FL)</content> UNK 0.0 <content [facility] styleCode="Bold [place] ">Nucleated Red Medical Blood Cell Center Count </content>0.00 KCUMM<content styleCode="Ital ics"> (0.0 KCUMM)</content > Platelets 130-400 Above high <content [facility] [#/volume] in normal styleCode="Bold [place] Blood by ">Platelet Medical Automated count Count Center </content>537 KCUMM H<content styleCode="Ital ics"> (130-400 KCUMM)</content > UNK 0 <content [facility] styleCode="Bold [place] ">Nucleated Red Medical Blood Cell Center </content>0.0 /100<content styleCode="Ital ics"> (0 /100)</content> ID Date Data Source GFR(Creatinine).[id number] 10/17/2019 07:30:00 AM EDT [facility] 0-0400 Name Value Range Interpretation Code Description Data Debra rce(s) Supporting Document(s ) UNK > 60 <content [facility] styleCode="Bold"> Medical Cent er EGFR </content>79 GFR<content styleCode="Italic s"> (> 60 GFR)</content> ID Date Data Source Coagulation 10/17/2019 07:30:00 AM [facility] Rout.[id number] EDT Name Value Range Interpretation Code Description Data Debra rce(s) Supporting Document(s ) UNK < 500 Above upper panic <content [facility] s limits styleCode="Bold"> Medical Cent er D-Dimer </content><conten t styleCode="Bold"> 2112 ngFEU HH</content><cont ent styleCode="Italic s"> (< 500 ngFEU)</content> ID Date Data Source CHMROUTINECCDA.[id number] 10/17/2019 07:30:00 AM EDT [facility] -0400 Name Value Range Interpretation Description Data Sup porting Code Source(s) Document(s ) UNK >= 1.0 Below low normal <content [facility] styleCode="Layla Lu[place]cia d">AG Ratio Medical </content>0.9 Center L<content styleCode="Christina lics"> (>= 1.0 )</content> UNK 2.3-3.5 Above high normal <content [facility] styleCode="Layla [place]cia d">Globulin Medical </content>3.8 Center G/DL H<content styleCode="Christina lics"> (2.3-3.5 G/DL)</content > Protein 6.3-8.2 <content [facility] [Mass/volume] styleCode="Layla [place] in Serum or d">Total Medical Plasma Protein Center </content>7.4 G/DL<content styleCode="Christina lics"> (6.3-8.2 G/DL)</content > Magnesium 1.6-2.3 <content [facility] [Mass/volume] styleCode="Layla [place] in Serum or d">Magnesium Medical Plasma </content>2.0 Center MG/DL<content styleCode="Christina lics"> (1.6-2.3 MG/DL)</conten t> ID Date Data Source [facility].[id number] 10/17/2019 07:30:00 AM EDT [facility] Name Value Range Interpretation Description Data Sup porting Code Source(s) Document(s ) Potassium 3.5-5.3 <content [facility] [Moles/volume] in styleCode="Bold"> [facility] Serum or Plasma Potassium Medical </content>4.0 Center MEQ/L<content styleCode="Italic s"> (3.5-5.3 MEQ/L)</content> Chloride 98-107 Below low <content [facility] [Moles/volume] in normal styleCode="Bold"> [facility] Serum or Plasma Chloride Medical </content>95 Center MEQ/L L<content styleCode="Italic s"> (98-107 MEQ/L)</content> Sodium 137-145 <content [facility] [Moles/volume] in styleCode="Bold"> [facility] Serum or Plasma Sodium Medical </content>138 Center MEQ/L<content styleCode="Italic s"> (137-145 MEQ/L)</content> Carbon dioxide, 22-30 Above high <content [facility] total normal styleCode="Bold"> [place] [Moles/volume] in Carbon Dioxide Medical Serum or Plasma </content>33 Center MEQ/L H<content styleCode="Italic s"> (22-30 MEQ/L)</content> UNK 7-17 Above high <content [facility] normal styleCode="Bold"> [place] BUN </content>34 Medical MG/DL H<content Center styleCode="Italic s"> (7-17 MG/DL)</content> Glucose 74-106 Above high <content [facility] [Mass/volume] in normal styleCode="Bold"> Abiel hs Serum or Plasma Glucose Medical </content>254 Center MG/DL H<content styleCode="Italic s"> (74-106 MG/DL)</content> Creatinine 0.5-1.3 <content [facility] [Mass/volume] in styleCode="Bold"> Abiel hs Serum or Plasma Creatinine Medical </content>0.9 Center MG/DL<content styleCode="Italic s"> (0.5-1.3 MG/DL)</content> Aspartate 14-36 <content [facility] aminotransferase styleCode="Bold"> Abiel hs [Enzymatic Aspartate Medical activity/volume] Aminotransferase Center in Serum or Plasma (AST) </content>36 IU/L<content styleCode="Italic s"> (14-36 IU/L)</content> Alkaline 38-126 Above high <content [facility] phosphatase normal styleCode="Bold"> [place] [Enzymatic Alkaline Medical activity/volume] Phosphatase (ALP) Cente r in Serum or Plasma </content>152 IU/L H<content styleCode="Italic s"> (38-126 IU/L)</content> UNK > 60 <content [facility] styleCode="Bold"> [place] EGFR </content>79 Medical GFR<content Center styleCode="Italic s"> (> 60 GFR)</content> Calcium 8.4-10. Above high <content [facility] [Mass/volume] in 2 normal styleCode="Bold"> Abiel hs Serum or Plasma Calcium Medical </content>11.0 Center MG/DL H<content styleCode="Italic s"> (8.4-10.2 MG/DL)</content> Alanine 7-30 Above high <content [facility] aminotransferase normal styleCode="Bold"> Abiel hs [Enzymatic Alanine Medical activity/volume] Aminotransferase Center in Serum or Plasma (ALT) </content>56 IU/L H<content styleCode="Italic s"> (7-30 IU/L)</content> Bilirubin.total 0.2-1.3 <content [facility] [Mass/volume] in styleCode="Bold"> Abiel hs Serum or Plasma Bilirubin Total Medical </content>0.5 Center MG/DL<content styleCode="Italic s"> (0.2-1.3 MG/DL)</content> Albumin 3.5-5.0 <content [facility] [Mass/volume] in styleCode="Bold"> Abiel hs Serum or Plasma Albumin Medical </content>3.6 Center G/DL<content styleCode="Italic s"> (3.5-5.0 G/DL)</content> ID Date Data Source Liver 10/16/2019 06:05:00 AM EDT [facility] Profile.[id number] Name Value Range Interpretation Description Data Sup porting Code Source(s) Document(s ) Aspartate 14-36 <content [facility] aminotransferase styleCode="Bold"> Abiel hs [Enzymatic Aspartate Medical activity/volume] Aminotransferase Center in Serum or Plasma (AST) </content>28 IU/L<content styleCode="Italic s"> (14-36 IU/L)</content> Bilirubin.total 0.2-1.3 <content [facility] [Mass/volume] in styleCode="Bold"> Abiel hs Serum or Plasma Bilirubin Total Medical </content>0.3 Center MG/DL<content styleCode="Italic s"> (0.2-1.3 MG/DL)</content> Alkaline 38-126 Above high <content [facility] phosphatase normal styleCode="Bold"> [facility] [Enzymatic Alkaline Medical activity/volume] Phosphatase (ALP) Cente r in Serum or Plasma </content>131 IU/L H<content styleCode="Italic s"> (38-126 IU/L)</content> Alanine 7-30 Above high <content [facility] aminotransferase normal styleCode="Bold"> Abiel hs [Enzymatic Alanine Medical activity/volume] Aminotransferase Center in Serum or Plasma (ALT) </content>50 IU/L H<content styleCode="Italic s"> (7-30 IU/L)</content> Albumin 3.5-5.0 Below low <content [facility] [Mass/volume] in normal styleCode="Bold"> Abiel hs Serum or Plasma Albumin Medical </content>3.0 Center G/DL L<content styleCode="Italic s"> (3.5-5.0 G/DL)</content> ID Date Data Source HematologyRou.[id number] 10/16/2019 06:05:00 AM EDT [facility] 0400 Name Value Range Interpretation Description Data Sup porting Code Source(s) Document(s ) Hematocrit 36.0-46. Below low normal <content [facility] [Volume 0 styleCode="Bold [facility] Fraction] of ">Hematocrit Medical Blood by </content>29.8 Center Automated count % L<content styleCode="Ital ics"> (36.0-46.0 %)</content> Leukocytes 4.4-11.0 Above high <content [facility] [#/volume] in normal styleCode="Bold [place] Blood by ">White Blood Medical Automated count Cell Count Center </content>11.61 KCUMM H<content styleCode="Ital ics"> (4.4-11.0 KCUMM)</content > Hemoglobin 12.3-16. Below low normal <content [facility] [Mass/volume] in 0 styleCode="Bold [place] Blood ">Hemoglobin Medical </content>9.6 Center G/DL L<content styleCode="Ital ics"> (12.3-16.0 G/DL)</content> Erythrocytes 4.0-5.1 Below low normal <content [facility] [#/volume] in styleCode="Bold [place] Blood by ">Red Blood Medical Automated count Cell Count Center </content>3.39 MCUMM L<content styleCode="Ital ics"> (4.0-5.1 MCUMM)</content > Erythrocyte mean 32.0-37. <content [facility] corpuscular 0 styleCode="Bold [place] hemoglobin ">Mean Corpus. Medical concentration Hgb Center [Mass/volume] by Concentration Automated count (MCHC) </content>32.2 G/DL<content styleCode="Ital ics"> (32.0-37.0 G/DL)</content> Erythrocyte 11.5-14. <content [facility] distribution 5 styleCode="Bold [place] width [Ratio] by ">Red Cell Medical Automated count Distribution Center Width </content>13.1 %<content styleCode="Ital ics"> (11.5-14.5 %)</content> Erythrocyte mean 80.0-100 <content [facility] corpuscular .0 styleCode="Bold [place] volume [Entitic ">Mean Medical volume] by Corpuscular Center Automated count Volume </content>87.9 FL<content styleCode="Ital ics"> (80.0-100.0 FL)</content> Erythrocyte mean 26.0-34. <content [facility] corpuscular 0 styleCode="Bold [place] hemoglobin ">Mean Medical [Entitic mass] Corposcular Center by Automated Hemoglobin count </content>28.3 PG<content styleCode="Ital ics"> (26.0-34.0 PG)</content> Platelets 130-400 Above high <content [facility] [#/volume] in normal styleCode="Bold [place] Blood by ">Platelet Medical Automated count Count Center </content>430 KCUMM H<content styleCode="Ital ics"> (130-400 KCUMM)</content > Neutrophils 36-66 Above high <content [facility] [#/volume] in normal styleCode="Bold [place] Blood by ">Neutrophil Medical Automated count </content>81.6 Center % H<content styleCode="Ital ics"> (36-66 %)</content> Platelet mean 8.0-11.0 <content [facility] volume [Entitic styleCode="Bold [place] volume] in Blood ">Mean Platelet Medical by Automated Volume Center count </content>10.3 FL<content styleCode="Ital ics"> (8.0-11.0 FL)</content> UNK 1.6-7.3 Above high <content [facility] normal styleCode="Bold [place] ">Neutrophil Medical Count Center </content>9.48 KCUMM H<content styleCode="Ital ics"> (1.6-7.3 KCUMM)</content > Monocytes 3.0-10.0 <content [facility] [#/volume] in styleCode="Bold [place] Blood by ">Monocyte Medical Automated count </content>5.2 Center %<content styleCode="Ital ics"> (3.0-10.0 %)</content> UNK 1.0-4.8 Below low normal <content [facility] styleCode="Bold [place] ">Lymphocyte Medical Count Center </content>0.91 KCUMM L<content styleCode="Ital ics"> (1.0-4.8 KCUMM)</content > Lymphocytes 24.0-44. Below low normal <content [facility] [#/volume] in 0 styleCode="Bold [place] Blood by ">Lymphocyte Medical Automated count </content>7.8 % Center L<content styleCode="Ital ics"> (24.0-44.0 %)</content> UNK 0.2-0.9 <content [facility] styleCode="Bold [place] ">Monocyte Medical Count Center </content>0.60 KCUMM<content styleCode="Ital ics"> (0.2-0.9 KCUMM)</content > Basophils 0.0-1.0 <content [facility] [#/volume] in styleCode="Bold [place] Blood by ">Basophil Medical Automated count </content>0.3 Center %<content styleCode="Ital ics"> (0.0-1.0 %)</content> UNK 0.0-0.6 <content [facility] styleCode="Bold [place] ">Eosinophil Medical Count Center </content>0.00 KCUMM<content styleCode="Ital ics"> (0.0-0.6 KCUMM)</content > Eosinophils 0-5.0 <content [facility] [#/volume] in styleCode="Bold [place] Blood by ">Eosinophil Medical Automated count </content>0.0 Center %<content styleCode="Ital ics"> (0-5.0 %)</content> UNK 0.0 <content [facility] styleCode="Bold [place] ">Nucleated Red Medical Blood Cell Center Count </content>0.00 KCUMM<content styleCode="Ital ics"> (0.0 KCUMM)</content > UNK 0.0-0.3 <content [facility] styleCode="Bold [place] ">Basophil Medical Count Center </content>0.03 KCUMM<content styleCode="Ital ics"> (0.0-0.3 KCUMM)</content > UNK 0 <content [facility] styleCode="Bold [place] ">Nucleated Red Medical Blood Cell Center </content>0.0 /100<content styleCode="Ital ics"> (0 /100)</content> UNK < 1 Above high <content [facility] normal styleCode="Bold [place] ">Immature Medical Granulocyte Center Ratio </content>5.1 % H<content styleCode="Ital ics"> (< 1 %)</content> UNK 0-0.1 Above high <content [facility] normal styleCode="Bold [place] ">Immature Medical Granulocyte Center Count </content>0.59 KCUMM H<content styleCode="Ital ics"> (0-0.1 KCUMM)</content > UNK 0 Above high <content [facility] normal styleCode="Bold [place] ">Atypical Medical Lymphocyte Center </content>9.0 % H<content styleCode="Ital ics"> (0 %)</content> UNK 42-75 Above high <content [facility] normal styleCode="Bold [place] ">Manual Medical Neutrophil Center count </content>82.0 % H<content styleCode="Ital ics"> (42-75 %)</content> UNK < 3 <content [facility] styleCode="Bold [place] ">Band-Manual Medical </content>1.0 Center %<content styleCode="Ital ics"> (< 3 %)</content> UNK 2-9 <content [facility] styleCode="Bold [place] ">Monocyte-Manu Medical al Center </content>4.0 %<content styleCode="Ital ics"> (2-9 %)</content> UNK 21-51 Below low normal <content [facility] styleCode="Bold [place] ">Manual Medical Lymphocyte Center Count </content>3.0 % L<content styleCode="Ital ics"> (21-51 %)</content> UNK 0 Above high <content [facility] normal styleCode="Bold [place] ">Metamyelocyte Medical </content>1.0 % Center H<content styleCode="Ital ics"> (0 %)</content> UNK NORMAL <content [facility] styleCode="Bold [place] ">RBC Medical Morphology Center </content>RUTH L <content styleCode="Ital ics"> (NORMAL )</content> UNK NORMAL <content [facility] styleCode="Bold [place] ">Platelet Medical Estimate Center </content>PLT. SLIGHTLY INCREASED <content styleCode="Ital ics"> (NORMAL )</content> ID Date Data Source GFR(Creatinine).[id number] 10/16/2019 06:05:00 AM EDT [facility] 0-0400 Name Value Range Interpretation Code Description Data Debra rce(s) Supporting Document(s ) UNK > 60 <content [facility] styleCode="Bold"> Medical Cent er EGFR </content>79 GFR<content styleCode="Italic s"> (> 60 GFR)</content> ID Date Data Source CHMROUTINECCDA.[id number] 10/16/2019 06:05:00 AM EDT [facility] -0400 Name Value Range Interpretation Description Data Sup porting Code Source(s) Document(s ) UNK 2.3-3.5 <content [facility] styleCode="Bold Medical ">Globulin Center </content>3.0 G/DL<content styleCode="Ital ics"> (2.3-3.5 G/DL)</content> UNK >= 1.0 <content [facility] styleCode="Bold Medical ">AG Ratio Center </content>1.0 <content styleCode="Ital ics"> (>= 1.0 )</content> Protein 6.3-8.2 Below low normal <content [facility] [Mass/volum styleCode="Bold Medical e] in Serum ">Total Protein Center or Plasma </content>6.0 G/DL L<content styleCode="Ital ics"> (6.3-8.2 G/DL)</content> ID Date Data Source [employer].[id number] 10/16/2019 06:05:00 AM EDT [facility] -0400 Name Value Range Interpretation Description Data Sup porting Code Source(s) Document(s ) Troponin < 0.034 <content [facility] I.cardiac styleCode="Bold [place] [Mass/volume ">Troponin I Medical ] in Serum </content>< Center or Plasma 0.012 NG/ML<content styleCode="Ital ics"> (< 0.034 NG/ML)</content > ID Date Data Source [facility].[id number] 10/16/2019 06:05:[address] [facility] Name Value Range Interpretation Description Data Sup porting Code Source(s) Document(s ) Chloride 98-107 Below low <content [facility] [Moles/volume] in normal styleCode="Bold"> [facility] Serum or Plasma Chloride Medical </content>94 Center MEQ/L L<content styleCode="Italic s"> (98-107 MEQ/L)</content> Sodium 137-145 <content [facility] [Moles/volume] in styleCode="Bold"> [facility] Serum or Plasma Sodium Medical </content>137 Center MEQ/L<content styleCode="Italic s"> (137-145 MEQ/L)</content> Carbon dioxide, 22-30 Above high <content [facility] total normal styleCode="Bold"> [place] [Moles/volume] in Carbon Dioxide Medical Serum or Plasma </content>33 Center MEQ/L H<content styleCode="Italic s"> (22-30 MEQ/L)</content> Potassium 3.5-5.3 <content [facility] [Moles/volume] in styleCode="Bold"> [facility] Serum or Plasma Potassium Medical </content>4.5 Center MEQ/L<content styleCode="Italic s"> (3.5-5.3 MEQ/L)</content> UNK 7-17 Above high <content [facility] normal styleCode="Bold"> [place] BUN </content>34 Medical MG/DL H<content Center styleCode="Italic s"> (7-17 MG/DL)</content> Calcium 8.4-10. Above high <content [facility] [Mass/volume] in 2 normal styleCode="Bold"> Abiel hs Serum or Plasma Calcium Medical </content>10.5 Center MG/DL H<content styleCode="Italic s"> (8.4-10.2 MG/DL)</content> Creatinine 0.5-1.3 <content [facility] [Mass/volume] in styleCode="Bold"> Abiel hs Serum or Plasma Creatinine Medical </content>0.9 Center MG/DL<content styleCode="Italic s"> (0.5-1.3 MG/DL)</content> Glucose 74-106 Above high <content [facility] [Mass/volume] in normal styleCode="Bold"> [facility]iel hs Serum or Plasma Glucose Medical </content>272 Center MG/DL H<content styleCode="Italic s"> (74-106 MG/DL)</content> Aspartate 14-36 <content [facility] aminotransferase styleCode="Bold"> [facility] [Enzymatic Aspartate Medical activity/volume] Aminotransferase Center in Serum or Plasma (AST) </content>28 IU/L<content styleCode="Italic s"> (14-36 IU/L)</content> Alanine 7-30 Above high <content [facility] aminotransferase normal styleCode="Bold"> [facility] [Enzymatic Alanine Medical activity/volume] Aminotransferase Center in Serum or Plasma (ALT) </content>50 IU/L H<content styleCode="Italic s"> (7-30 IU/L)</content> Alkaline 38-126 Above high <content [facility] phosphatase normal styleCode="Bold"> [facility] [Enzymatic Alkaline Medical activity/volume] Phosphatase (ALP) Cente r in Serum or Plasma </content>131 IU/L H<content styleCode="Italic s"> (38-126 IU/L)</content> UNK > 60 <content [facility] styleCode="Bold"> [place] EGFR </content>79 Medical GFR<content Center styleCode="Italic s"> (> 60 GFR)</content> Bilirubin.total 0.2-1.3 <content [facility] [Mass/volume] in styleCode="Bold"> Abiel hs Serum or Plasma Bilirubin Total Medical </content>0.3 Center MG/DL<content styleCode="Italic s"> (0.2-1.3 MG/DL)</content> Albumin 3.5-5.0 Below low <content [facility] [Mass/volume] in normal styleCode="Bold"> Abiel hs Serum or Plasma Albumin Medical </content>3.0 Center G/DL L<content styleCode="Italic s"> (3.5-5.0 G/DL)</content> ID Date Data Source HematologyRou.[id number] 10/13/2019 05:35:00 AM EDT [facility] 0400 Name Value Range Interpretation Description Data Sup porting Code Source(s) Document(s ) Leukocytes 4.4-11.0 Above high <content [facility] [#/volume] in normal styleCode="Bold [place] Blood by ">White Blood Medical Automated count Cell Count Center </content>16.42 KCUMM H<content styleCode="Ital ics"> (4.4-11.0 KCUMM)</content > Erythrocytes 4.0-5.1 Below low normal <content [facility] [#/volume] in styleCode="Bold [place] Blood by ">Red Blood Medical Automated count Cell Count Center </content>3.30 MCUMM L<content styleCode="Ital ics"> (4.0-5.1 MCUMM)</content > Hematocrit 36.0-46. Below low normal <content [facility] [Volume 0 styleCode="Bold [facility] Fraction] of ">Hematocrit Medical Blood by </content>28.1 Center Automated count % L<content styleCode="Ital ics"> (36.0-46.0 %)</content> Erythrocyte mean 80.0-100 <content [facility] corpuscular .0 styleCode="Bold [place] volume [Entitic ">Mean Medical volume] by Corpuscular Center Automated count Volume </content>85.2 FL<content styleCode="Ital ics"> (80.0-100.0 FL)</content> Erythrocyte mean 26.0-34. <content [facility] corpuscular 0 styleCode="Bold [place] hemoglobin ">Mean Medical [Entitic mass] Corposcular Center by Automated Hemoglobin count </content>28.2 PG<content styleCode="Ital ics"> (26.0-34.0 PG)</content> Hemoglobin 12.3-16. Below low normal <content [facility] [Mass/volume] in 0 styleCode="Bold [place] Blood ">Hemoglobin Medical </content>9.3 Center G/DL L<content styleCode="Ital ics"> (12.3-16.0 G/DL)</content> Erythrocyte mean 32.0-37. <content [facility] corpuscular 0 styleCode="Bold [place] hemoglobin ">Mean Corpus. Medical concentration Hgb Center [Mass/volume] by Concentration Automated count (MCHC) </content>33.1 G/DL<content styleCode="Ital ics"> (32.0-37.0 G/DL)</content> Platelets 130-400 <content [facility] [#/volume] in styleCode="Bold [place] Blood by ">Platelet Medical Automated count Count Center </content>288 KCUMM<content styleCode="Ital ics"> (130-400 KCUMM)</content > Erythrocyte 11.5-14. <content [facility] distribution 5 styleCode="Bold [place] width [Ratio] by ">Red Cell Medical Automated count Distribution Center Width </content>13.4 %<content styleCode="Ital ics"> (11.5-14.5 %)</content> Neutrophils 36-66 Above high <content [facility] [#/volume] in normal styleCode="Bold [place] Blood by ">Neutrophil Medical Automated count </content>90.6 Center % H<content styleCode="Ital ics"> (36-66 %)</content> Platelet mean 8.0-11.0 <content [facility] volume [Entitic styleCode="Bold [place] volume] in Blood ">Mean Platelet Medical by Automated Volume Center count </content>10.3 FL<content styleCode="Ital ics"> (8.0-11.0 FL)</content> UNK 1.6-7.3 Above high <content [facility] normal styleCode="Bold [place] ">Neutrophil Medical Count Center </content>14.87 KCUMM H<content styleCode="Ital ics"> (1.6-7.3 KCUMM)</content > UNK 0.2-0.9 <content [facility] styleCode="Bold [place] ">Monocyte Medical Count Center </content>0.55 KCUMM<content styleCode="Ital ics"> (0.2-0.9 KCUMM)</content > UNK 1.0-4.8 Below low normal <content [facility] styleCode="Bold [place] ">Lymphocyte Medical Count Center </content>0.79 KCUMM L<content styleCode="Ital ics"> (1.0-4.8 KCUMM)</content > Lymphocytes 24.0-44. Below low normal <content [facility] [#/volume] in 0 styleCode="Bold [place] Blood by ">Lymphocyte Medical Automated count </content>4.8 % Center L<content styleCode="Ital ics"> (24.0-44.0 %)</content> Monocytes 3.0-10.0 <content [facility] [#/volume] in styleCode="Bold [place] Blood by ">Monocyte Medical Automated count </content>3.3 Center %<content styleCode="Ital ics"> (3.0-10.0 %)</content> Eosinophils 0-5.0 <content [facility] [#/volume] in styleCode="Bold [place] Blood by ">Eosinophil Medical Automated count </content>0.0 Center %<content styleCode="Ital ics"> (0-5.0 %)</content> UNK 0.0-0.6 <content [facility] styleCode="Bold [place] ">Eosinophil Medical Count Center </content>0.00 KCUMM<content styleCode="Ital ics"> (0.0-0.6 KCUMM)</content > Basophils 0.0-1.0 <content [facility] [#/volume] in styleCode="Bold [place] Blood by ">Basophil Medical Automated count </content>0.1 Center %<content styleCode="Ital ics"> (0.0-1.0 %)</content> UNK 0.0-0.3 <content [facility] styleCode="Bold [place] ">Basophil Medical Count Center </content>0.01 KCUMM<content styleCode="Ital ics"> (0.0-0.3 KCUMM)</content > UNK 0-0.1 Above high <content [facility] normal styleCode="Bold [place] ">Immature Medical Granulocyte Center Count </content>0.20 KCUMM H<content styleCode="Ital ics"> (0-0.1 KCUMM)</content > UNK 0.0 <content [facility] styleCode="Bold [place] ">Nucleated Red Medical Blood Cell Center Count </content>0.00 KCUMM<content styleCode="Ital ics"> (0.0 KCUMM)</content > UNK 0 <content [facility] styleCode="Bold [place] ">Nucleated Red Medical Blood Cell Center </content>0.0 /100<content styleCode="Ital ics"> (0 /100)</content> UNK NORMAL <content [facility] styleCode="Bold [place] ">[place] [facility] Medical </content>SLIGH Center T <content styleCode="Ital ics"> (NORMAL )</content> UNK 0 Above high <content [facility] normal styleCode="Bold [place] ">Atypical Medical Lymphocyte Center </content>4.0 % H<content styleCode="Ital ics"> (0 %)</content> UNK < 1 Above high <content [facility] normal styleCode="Bold [place] ">Immature Medical Granulocyte Center Ratio </content>1.2 % H<content styleCode="Ital ics"> (< 1 %)</content> UNK 42-75 Above high <content [facility] normal styleCode="Bold [place] ">Manual Medical Neutrophil Center count </content>93.0 % H<content styleCode="Ital ics"> (42-75 %)</content> UNK 21-51 Below low normal <content [facility] styleCode="Bold [place] ">Manual Medical Lymphocyte Center Count </content>1.0 % L<content styleCode="Ital ics"> (21-51 %)</content> UNK NORMAL <content [facility] styleCode="Bold [place] ">Elliptocyte Medical </content>SLIGH Center T <content styleCode="Ital ics"> (NORMAL )</content> UNK NORMAL <content [facility] styleCode="Bold [place] ">RBC Medical Morphology Center </content>ABNOR MAL <content styleCode="Ital ics"> (NORMAL )</content> UNK 2-9 <content [facility] styleCode="Bold [place] ">Monocyte-Manu Medical al Center </content>2.0 %<content styleCode="Ital ics"> (2-9 %)</content> ID Date Data Source CHMROUTINECCDA.[id number] 10/12/2019 01:35:00 PM EDT [facility] -0400 Name Value Range Interpretation Description Data Sup porting Code Source(s) Document(s ) Lactate 0.7-2.0 Above upper panic <content [facility] s [Mass/volum limits styleCode="Bold Medical e] in Serum ">Lactic Acid Center or Plasma </content><cont ent styleCode="Bold ">3.6 MMOLL HH</content><co ntent styleCode="Ital ics"> (0.7-2.0 MMOLL)</content > ID Date Data Source HematologySpeci.[id number] 10/12/2019 01:28:00 PM EDT [facility] 0-0400 Name Value Range Interpretation Description Data Sup porting Code Source(s) Document(s ) C reactive < 3.0 Above high normal <content [facility] hs protein styleCode="Bold Medical [Mass/volume ">C-Reactive Center ] in Serum Protein or Plasma </content>> 15.0 MG/L H<content styleCode="Ital ics"> (< 3.0 MG/L)</content> ID Date Data Source CHMROUTINECCDA.[id number] 10/12/2019 01:28:00 PM EDT [facility] -0400 Name Value Range Interpretation Description Data Sup porting Code Source(s) Document(s ) Ferritin 7-264 Above high <content [facility] [Mass/volume] in normal styleCode="Bold [place] Serum or Plasma ">Ferritin Medical </content>464 Center NG/ML H<content styleCode="Ital ics"> (7-264 NG/ML)</content > Lactate 316-618 Above high <content [facility] dehydrogenase normal styleCode="Bold [place] [Enzymatic ">Lactate Medical activity/volume] Dehydrogenase Center in Serum or (LDH) Plasma by </content>820 Pyruvate to IU/L H<content lactate reaction styleCode="Ital ics"> (316-618 IU/L)</content> ID Date Data Source Liver 10/11/2019 05:45:00 AM EDT [facility] Profile.[id number] Name Value Range Interpretation Description Data Sup porting Code Source(s) Document(s ) Alanine 7-30 Above high <content [facility] aminotransferase normal styleCode="Bold"> Abiel hs [Enzymatic Alanine Medical activity/volume] Aminotransferase Center in Serum or Plasma (ALT) </content>126 IU/L H<content styleCode="Italic s"> (7-30 IU/L)</content> Aspartate 14-36 Above high <content [facility] aminotransferase normal styleCode="Bold"> Abiel hs [Enzymatic Aspartate Medical activity/volume] Aminotransferase Center in Serum or Plasma (AST) </content>157 IU/L H<content styleCode="Italic s"> (14-36 IU/L)</content> Albumin 3.5-5.0 Below low <content [facility] [Mass/volume] in normal styleCode="Bold"> Abiel hs Serum or Plasma Albumin Medical </content>2.9 Center G/DL L<content styleCode="Italic s"> (3.5-5.0 G/DL)</content> Alkaline 38-126 Above high <content [facility] phosphatase normal styleCode="Bold"> [place] [Enzymatic Alkaline Medical activity/volume] Phosphatase (ALP) Cente r in Serum or Plasma </content>262 IU/L H<content styleCode="Italic s"> (38-126 IU/L)</content> Bilirubin.total 0.2-1.3 <content [facility] [Mass/volume] in styleCode="Bold"> Abiel hs Serum or Plasma Bilirubin Total Medical </content>0.9 Center MG/DL<content styleCode="Italic s"> (0.2-1.3 MG/DL)</content> ID Date Data Source GFR(Creatinine).[id number] 10/11/2019 05:45:00 AM EDT [facility] 0-0400 Name Value Range Interpretation Code Description Data Debra rce(s) Supporting Document(s ) UNK > 60 <content [facility] styleCode="Bold"> Medical Cent er EGFR </content>79 GFR<content styleCode="Italic s"> (> 60 GFR)</content> ID Date Data Source [facility].[id number] 10/11/2019 05:45:[address] [facility] Name Value Range Interpretation Description Data Sup porting Code Source(s) Document(s ) Sodium 137-145 <content [facility] [Moles/volume] in styleCode="Bold"> [facility] Serum or Plasma Sodium Medical </content>137 Center MEQ/L<content styleCode="Italic s"> (137-145 MEQ/L)</content> Potassium 3.5-5.3 <content [facility] [Moles/volume] in styleCode="Bold"> [facility] Serum or Plasma Potassium Medical </content>3.7 Center MEQ/L<content styleCode="Italic s"> (3.5-5.3 MEQ/L)</content> Chloride 98-107 <content [facility] [Moles/volume] in styleCode="Bold"> [facility] Serum or Plasma Chloride Medical </content>98 Center MEQ/L<content styleCode="Italic s"> (98-107 MEQ/L)</content> Calcium 8.4-10. <content [facility] [Mass/volume] in 2 styleCode="Bold"> Abiel hs Serum or Plasma Calcium Medical </content>9.8 Center MG/DL<content styleCode="Italic s"> (8.4-10.2 MG/DL)</content> UNK 7-17 Above high <content [facility] normal styleCode="Bold"> [place] BUN </content>21 Medical MG/DL H<content Center styleCode="Italic s"> (7-17 MG/DL)</content> Carbon dioxide, 22-30 <content [facility] total styleCode="Bold"> [place] [Moles/volume] in Carbon Dioxide Medical Serum or Plasma </content>28 Center MEQ/L<content styleCode="Italic s"> (22-30 MEQ/L)</content> Glucose 74-106 Above high <content [facility] [Mass/volume] in normal styleCode="Bold"> Abiel hs Serum or Plasma Glucose Medical </content>277 Center MG/DL H<content styleCode="Italic s"> (74-106 MG/DL)</content> Creatinine 0.5-1.3 <content [facility] [Mass/volume] in styleCode="Bold"> Abiel hs Serum or Plasma Creatinine Medical </content>0.9 Center MG/DL<content styleCode="Italic s"> (0.5-1.3 MG/DL)</content> UNK > 60 <content [facility] styleCode="Bold"> [place] EGFR </content>79 Medical GFR<content Center styleCode="Italic s"> (> 60 GFR)</content> Alanine 7-30 Above high <content [facility] aminotransferase normal styleCode="Bold"> Abiel hs [Enzymatic Alanine Medical activity/volume] Aminotransferase Center in Serum or Plasma (ALT) </content>126 IU/L H<content styleCode="Italic s"> (7-30 IU/L)</content> Aspartate 14-36 Above high <content [facility] aminotransferase normal styleCode="Bold"> [facility]iel hs [Enzymatic Aspartate Medical activity/volume] Aminotransferase Center in Serum or Plasma (AST) </content>157 IU/L H<content styleCode="Italic s"> (14-36 IU/L)</content> Alkaline 38-126 Above high <content [facility] phosphatase normal styleCode="Bold"> [place] [Enzymatic Alkaline Medical activity/volume] Phosphatase (ALP) Cente r in Serum or Plasma </content>262 IU/L H<content styleCode="Italic s"> (38-126 IU/L)</content> Bilirubin.total 0.2-1.3 <content [facility] [Mass/volume] in styleCode="Bold"> Abiel hs Serum or Plasma Bilirubin Total Medical </content>0.9 Center MG/DL<content styleCode="Italic s"> (0.2-1.3 MG/DL)</content> Albumin 3.5-5.0 Below low <content [facility] [Mass/volume] in normal styleCode="Bold"> Abiel hs Serum or Plasma Albumin Medical </content>2.9 Center G/DL L<content styleCode="Italic s"> (3.5-5.0 G/DL)</content> ID Date Data Source HematologyRou.[id number] 10/11/2019 05:10:00 AM EDT [facility] 0400 Name Value Range Interpretation Description Data Sup porting Code Source(s) Document(s ) Leukocytes 4.4-11.0 <content [facility] [#/volume] in styleCode="Bold [place] Blood by ">White Blood Medical Automated count Cell Count Center </content>7.30 KCUMM<content styleCode="Ital ics"> (4.4-11.0 KCUMM)</content > Erythrocytes 4.0-5.1 Below low normal <content [facility] [#/volume] in styleCode="Bold [place] Blood by ">Red Blood Medical Automated count Cell Count Center </content>3.31 MCUMM L<content styleCode="Ital ics"> (4.0-5.1 MCUMM)</content > Erythrocyte mean 80.0-100 <content [facility] corpuscular .0 styleCode="Bold [place] volume [Entitic ">Mean Medical volume] by Corpuscular Center Automated count Volume </content>85.5 FL<content styleCode="Ital ics"> (80.0-100.0 FL)</content> Hematocrit 36.0-46. Below low normal <content [facility] [Volume 0 styleCode="Bold [place] Fraction] of ">Hematocrit Medical Blood by </content>28.3 Center Automated count % L<content styleCode="Ital ics"> (36.0-46.0 %)</content> Hemoglobin 12.3-16. Below low normal <content [facility] [Mass/volume] in 0 styleCode="Bold [place] Blood ">Hemoglobin Medical </content>9.3 Center G/DL L<content styleCode="Ital ics"> (12.3-16.0 G/DL)</content> Erythrocyte mean 32.0-37. <content [facility] corpuscular 0 styleCode="Bold [place] hemoglobin ">Mean Corpus. Medical concentration Hgb Center [Mass/volume] by Concentration Automated count (MCHC) </content>32.9 G/DL<content styleCode="Ital ics"> (32.0-37.0 G/DL)</content> Erythrocyte mean 26.0-34. <content [facility] corpuscular 0 styleCode="Bold [place] hemoglobin ">Mean Medical [Entitic mass] Corposcular Center by Automated Hemoglobin count </content>28.1 PG<content styleCode="Ital ics"> (26.0-34.0 PG)</content> Erythrocyte 11.5-14. <content [facility] distribution 5 styleCode="Bold [place] width [Ratio] by ">Red Cell Medical Automated count Distribution Center Width </content>13.2 %<content styleCode="Ital ics"> (11.5-14.5 %)</content> Platelet mean 8.0-11.0 <content [facility] volume [Entitic styleCode="Bold [place] volume] in Blood ">Mean Platelet Medical by Automated Volume Center count </content>10.4 FL<content styleCode="Ital ics"> (8.0-11.0 FL)</content> UNK 0.0 <content [facility] styleCode="Bold [place] ">Nucleated Red Medical Blood Cell Center Count </content>0.00 KCUMM<content styleCode="Ital ics"> (0.0 KCUMM)</content > UNK 0 <content [facility] styleCode="Bold [place] ">Nucleated Red Medical Blood Cell Center </content>0.0 /100<content styleCode="Ital ics"> (0 /100)</content> Platelets 130-400 <content [facility] [#/volume] in styleCode="Bold [place] Blood by ">Platelet Medical Automated count Count Center </content>173 KCUMM<content styleCode="Ital ics"> (130-400 KCUMM)</content > ID Date Data Source Coagulation 10/11/2019 05:10:00 AM [facility] Rout.[id number] EDT Name Value Range Interpretation Code Description Data Debra rce(s) Supporting Document(s ) UNK < 500 Above upper panic <content [facility] s limits styleCode="Bold"> Medical Cent er D-Dimer </content><conten t styleCode="Bold"> 5198 ngFEU HH</content><cont ent styleCode="Italic s"> (< 500 ngFEU)</content> ID Date Data Source HematologySpeci.[id number] 10/10/2019 05:35:00 PM EDT [facility] 0-0400 Name Value Range Interpretation Description Data Sup porting Code Source(s) Document(s ) C reactive < 3.0 Above high normal <content [facility] hs protein styleCode="Bold Medical [Mass/volume ">C-Reactive Center ] in Serum Protein or Plasma </content>> 15.0 MG/L H<content styleCode="Ital ics"> (< 3.0 MG/L)</content> ID Date Data Source Liver 10/09/2019 05:10:00 AM EDT [facility] Profile.[id number] Name Value Range Interpretation Description Data Sup porting Code Source(s) Document(s ) Aspartate 14-36 Above high <content [facility] aminotransferase normal styleCode="Bold"> Abiel hs [Enzymatic Aspartate Medical activity/volume] Aminotransferase Center in Serum or Plasma (AST) </content>84 IU/L H<content styleCode="Italic s"> (14-36 IU/L)</content> Alanine 7-30 Above high <content [facility] aminotransferase normal styleCode="Bold"> Abiel hs [Enzymatic Alanine Medical activity/volume] Aminotransferase Center in Serum or Plasma (ALT) </content>76 IU/L H<content styleCode="Italic s"> (7-30 IU/L)</content> Bilirubin.total 0.2-1.3 <content [facility] [Mass/volume] in styleCode="Bold"> Abiel hs Serum or Plasma Bilirubin Total Medical </content>0.5 Center MG/DL<content styleCode="Italic s"> (0.2-1.3 MG/DL)</content> Albumin 3.5-5.0 Below low <content [facility] [Mass/volume] in normal styleCode="Bold"> Abiel hs Serum or Plasma Albumin Medical </content>2.9 Center G/DL L<content styleCode="Italic s"> (3.5-5.0 G/DL)</content> Alkaline 38-126 <content [facility] phosphatase styleCode="Bold"> [place] [Enzymatic Alkaline Medical activity/volume] Phosphatase (ALP) Cente r in Serum or Plasma </content>99 IU/L<content styleCode="Italic s"> (38-126 IU/L)</content> ID Date Data Source GFR(Creatinine).[id number] 10/09/2019 05:10:00 AM EDT [facility] 0-0400 Name Value Range Interpretation Code Description Data Debra rce(s) Supporting Document(s ) UNK > 60 <content [facility] styleCode="Bold"> Medical Cent er EGFR </content>70 GFR<content styleCode="Italic s"> (> 60 GFR)</content> ID Date Data Source BMP.[id number] 10/09/2019 05:10:[address] [facility] Name Value Range Interpretation Description Data Sup porting Code Source(s) Document(s ) Chloride 98-107 <content [facility] [Moles/volume] in styleCode="Bold"> [facility] phs Serum or Plasma Chloride Medical </content>98 Center MEQ/L<content styleCode="Italic s"> (98-107 MEQ/L)</content> Potassium 3.5-5.3 <content [facility] [Moles/volume] in styleCode="Bold"> [facility]iah phs Serum or Plasma Potassium Medical </content>3.6 Center MEQ/L<content styleCode="Italic s"> (3.5-5.3 MEQ/L)</content> Sodium 137-145 Below low <content [facility] [Moles/volume] in normal styleCode="Bold"> [facility]iah phs Serum or Plasma Sodium Medical </content>136 Center MEQ/L L<content styleCode="Italic s"> (137-145 MEQ/L)</content> Carbon dioxide, 22-30 <content [facility] total styleCode="Bold"> [place] [Moles/volume] in Carbon Dioxide Medical Serum or Plasma </content>30 Center MEQ/L<content styleCode="Italic s"> (22-30 MEQ/L)</content> Creatinine 0.5-1.3 <content [facility] [Mass/volume] in styleCode="Bold"> Abiel hs Serum or Plasma Creatinine Medical </content>1.0 Center MG/DL<content styleCode="Italic s"> (0.5-1.3 MG/DL)</content> Glucose 74-106 Above high <content [facility] [Mass/volume] in normal styleCode="Bold"> Abiel hs Serum or Plasma Glucose Medical </content>170 Center MG/DL H<content styleCode="Italic s"> (74-106 MG/DL)</content> UNK 7-17 <content [facility] styleCode="Bold"> [place] BUN </content>15 Medical MG/DL<content Center styleCode="Italic s"> (7-17 MG/DL)</content> UNK > 60 <content [facility] styleCode="Bold"> [place] EGFR </content>70 Medical GFR<content Center styleCode="Italic s"> (> 60 GFR)</content> Aspartate 14-36 Above high <content [facility] aminotransferase normal styleCode="Bold"> Abiel hs [Enzymatic Aspartate Medical activity/volume] Aminotransferase Center in Serum or Plasma (AST) </content>84 IU/L H<content styleCode="Italic s"> (14-36 IU/L)</content> Alanine 7-30 Above high <content [facility] aminotransferase normal styleCode="Bold"> Abiel hs [Enzymatic Alanine Medical activity/volume] Aminotransferase Center in Serum or Plasma (ALT) </content>76 IU/L H<content styleCode="Italic s"> (7-30 IU/L)</content> Calcium 8.4-10. <content [facility] [Mass/volume] in 2 styleCode="Bold"> Abiel hs Serum or Plasma Calcium Medical </content>9.4 Center MG/DL<content styleCode="Italic s"> (8.4-10.2 MG/DL)</content> Bilirubin.total 0.2-1.3 <content [facility] [Mass/volume] in styleCode="Bold"> Abiel hs Serum or Plasma Bilirubin Total Medical </content>0.5 Center MG/DL<content styleCode="Italic s"> (0.2-1.3 MG/DL)</content> Albumin 3.5-5.0 Below low <content [facility] [Mass/volume] in normal styleCode="Bold"> Abiel hs Serum or Plasma Albumin Medical </content>2.9 Center G/DL L<content styleCode="Italic s"> (3.5-5.0 G/DL)</content> Alkaline 38-126 <content [facility] phosphatase styleCode="Bold"> [facility] [Enzymatic Alkaline Medical activity/volume] Phosphatase (ALP) Cente r in Serum or Plasma </content>99 IU/L<content styleCode="Italic s"> (38-126 IU/L)</content> ID Date Data Source HematologySpeci.[id number] 10/08/2019 04:14:00 AM EDT [facility] 0-0400 Name Value Range Interpretation Description Data Sup porting Code Source(s) Document(s ) C reactive < 3.0 Above high normal <content [facility] hs protein styleCode="Bold Medical [Mass/volume ">C-Reactive Center ] in Serum Protein or Plasma </content>> 15.0 MG/L H<content styleCode="Ital ics"> (< 3.0 MG/L)</content> ID Date Data Source [employer]iacMarkers.[id number] 10/08/2019 04:14:00 AM EDT [facility] -0400 Name Value Range Interpretation Description Data Sup porting Code Source(s) Document(s ) Troponin < 0.034 Above upper panic <content [facility] I.cardiac limits styleCode="Bold [place] [Mass/volume ">Troponin I Medical ] in Serum </content><cont Center or Plasma ent styleCode="Bold ">0.037 NG/ML HH</content><co ntent styleCode="Ital ics"> (< 0.034 NG/ML)</content > ID Date Data Source HematologyRou.[id number] 10/07/2019 04:10:00 AM EDT [facility] 0400 Name Value Range Interpretation Description Data Sup porting Code Source(s) Document(s ) Leukocytes 4.4-11.0 <content [facility] [#/volume] in styleCode="Bold [place] Blood by ">White Blood Medical Automated count Cell Count Center </content>7.98 KCUMM<content styleCode="Ital ics"> (4.4-11.0 KCUMM)</content > Hemoglobin 12.3-16. Below low normal <content [facility] [Mass/volume] in 0 styleCode="Bold [place] Blood ">Hemoglobin Medical </content>9.2 Center G/DL L<content styleCode="Ital ics"> (12.3-16.0 G/DL)</content> Hematocrit 36.0-46. Below low normal <content [facility] [Volume 0 styleCode="Bold [place] Fraction] of ">Hematocrit Medical Blood by </content>28.6 Center Automated count % L<content styleCode="Ital ics"> (36.0-46.0 %)</content> Erythrocytes 4.0-5.1 Below low normal <content [facility] [#/volume] in styleCode="Bold [place] Blood by ">Red Blood Medical Automated count Cell Count Center </content>3.28 MCUMM L<content styleCode="Ital ics"> (4.0-5.1 MCUMM)</content > Erythrocyte mean 80.0-100 <content [facility] corpuscular .0 styleCode="Bold [place] volume [Entitic ">Mean Medical volume] by Corpuscular Center Automated count Volume </content>87.2 FL<content styleCode="Ital ics"> (80.0-100.0 FL)</content> Erythrocyte mean 26.0-34. <content [facility] corpuscular 0 styleCode="Bold [place] hemoglobin ">Mean Medical [Entitic mass] Corposcular Center by Automated Hemoglobin count </content>28.0 PG<content styleCode="Ital ics"> (26.0-34.0 PG)</content> Erythrocyte mean 32.0-37. <content [facility] corpuscular 0 styleCode="Bold [place] hemoglobin ">Mean Corpus. Medical concentration Hgb Center [Mass/volume] by Concentration Automated count (MCHC) </content>32.2 G/DL<content styleCode="Ital ics"> (32.0-37.0 G/DL)</content> Platelets 130-400 <content [facility] [#/volume] in styleCode="Bold [place] Blood by ">Platelet Medical Automated count Count Center </content>154 KCUMM<content styleCode="Ital ics"> (130-400 KCUMM)</content > Platelet mean 8.0-11.0 <content [facility] volume [Entitic styleCode="Bold [place] volume] in Blood ">Mean Platelet Medical by Automated Volume Center count </content>9.6 FL<content styleCode="Ital ics"> (8.0-11.0 FL)</content> Neutrophils 36-66 Above high <content [facility] [#/volume] in normal styleCode="Bold [place] Blood by ">Neutrophil Medical Automated count </content>83.2 Center % H<content styleCode="Ital ics"> (36-66 %)</content> Erythrocyte 11.5-14. <content [facility] distribution 5 styleCode="Bold [place] width [Ratio] by ">Red Cell Medical Automated count Distribution Center Width </content>13.9 %<content styleCode="Ital ics"> (11.5-14.5 %)</content> Monocytes 3.0-10.0 <content [facility] [#/volume] in styleCode="Bold [place] Blood by ">Monocyte Medical Automated count </content>6.6 Center %<content styleCode="Ital ics"> (3.0-10.0 %)</content> UNK 1.6-7.3 <content Saint styleCode="Bold Lucrecia ">Neutrophil [facility] Count Center </content>6.63 KCUMM<content styleCode="Ital ics"> (1.6-7.3 KCUMM)</content > UNK 1.0-4.8 Below low normal <content [facility] styleCode="Bold Lucrecia ">Lymphocyte Medical Count Center </content>0.77 KCUMM L<content styleCode="Ital ics"> (1.0-4.8 KCUMM)</content > Lymphocytes 24.0-44. Below low normal <content [facility] [#/volume] in 0 styleCode="Bold Lucrecia Blood by ">Lymphocyte Medical Automated count </content>9.6 % Center L<content styleCode="Ital ics"> (24.0-44.0 %)</content> Eosinophils 0-5.0 <content [facility] [#/volume] in styleCode="Bold [place] Blood by ">Eosinophil Medical Automated count </content>0.0 Center %<content styleCode="Ital ics"> (0-5.0 %)</content> UNK 0.0-0.6 <content [facility] styleCode="Bold Lucrecia ">Eosinophil Medical Count Center </content>0.00 KCUMM<content styleCode="Ital ics"> (0.0-0.6 KCUMM)</content > Basophils 0.0-1.0 <content [facility] [#/volume] in styleCode="Bold [place] Blood by ">Basophil Medical Automated count </content>0.1 Center %<content styleCode="Ital ics"> (0.0-1.0 %)</content> UNK 0.2-0.9 <content [facility] styleCode="Bold Lucrecia ">Monocyte Medical Count Center </content>0.53 KCUMM<content styleCode="Ital ics"> (0.2-0.9 KCUMM)</content > UNK 0.0-0.3 <content [facility] styleCode="Bold Lucrecia ">Basophil Medical Count Center </content>0.01 KCUMM<content styleCode="Ital ics"> (0.0-0.3 KCUMM)</content > UNK 0 <content [facility] styleCode="Bold Lucrecia ">Nucleated Red Medical Blood Cell Center </content>0.0 /100<content styleCode="Ital ics"> (0 /100)</content> UNK < 1 <content [facility] styleCode="Bold Lucrecia ">Immature Medical Granulocyte Center Ratio </content>0.5 %<content styleCode="Ital ics"> (< 1 %)</content> UNK 0.0 <content [facility] styleCode="Bold Lucrecia ">Nucleated Red Medical Blood Cell Center Count </content>0.00 KCUMM<content styleCode="Ital ics"> (0.0 KCUMM)</content > UNK 0-0.1 <content [facility] styleCode="Bold Lucrecia ">Immature Medical Granulocyte Center Count </content>0.04 KCUMM<content styleCode="Ital ics"> (0-0.1 KCUMM)</content > ID Date Data Source GFR(Creatinine).[id number] 10/07/2019 04:10:00 AM EDT [facility] 0-0400 Name Value Range Interpretation Code Description Data Debra rce(s) Supporting Document(s ) UNK > 60 <content [facility] styleCode="Bold"> Medical Cent er EGFR </content>79 GFR<content styleCode="Italic s"> (> 60 GFR)</content> ID Date Data Source BMP.[id number] 10/07/2019 04:10:[address] [facility] Name Value Range Interpretation Description Data Sup porting Code Source(s) Document(s ) Sodium 137-145 Below low normal <content [facility] [Moles/volume] styleCode="Layla Lucrecia in Serum or d">Sodium Medical Plasma </content>135 Center MEQ/L L<content styleCode="Christina lics"> (137-145 MEQ/L)</conten t> Potassium 3.5-5.3 <content [facility] [Moles/volume] styleCode="Layla Lucrecia in Serum or d">Potassium Medical Plasma </content>4.5 Center MEQ/L<content styleCode="Christina lics"> (3.5-5.3 MEQ/L)</conten t> Carbon 22-30 <content [facility] dioxide, total styleCode="Layla Lucrecia [Moles/volume] d">Carbon Medical in Serum or Dioxide Center Plasma </content>25 MEQ/L<content styleCode="Christina lics"> (22-30 MEQ/L)</conten t> Creatinine 0.5-1.3 <content [facility] [Mass/volume] styleCode="Layla Lucrecia in Serum or d">Creatinine Medical Plasma </content>0.9 Center MG/DL<content styleCode="Christina lics"> (0.5-1.3 MG/DL)</conten t> UNK 7-17 Above high normal <content [facility] styleCode="Layla Lucrecia d">BUN Medical </content>26 Center MG/DL H<content styleCode="Christina lics"> (7-17 MG/DL)</conten t> Glucose 74-106 Above high normal <content [facility] [Mass/volume] styleCode="Layla Lucrecia in Serum or d">Glucose Medical Plasma </content>211 Center MG/DL H<content styleCode="Christina lics"> (74-106 MG/DL)</conten t> Chloride 98-107 <content [facility] [Moles/volume] styleCode="Layla Lucrecia in Serum or d">Chloride Medical Plasma </content>100 Center MEQ/L<content styleCode="Christina lics"> (98-107 MEQ/L)</conten t> UNK > 60 <content [facility] styleCode="Layla Lucrecia d">EGFR Medical </content>79 Center GFR<content styleCode="Christina lics"> (> 60 GFR)</content> Calcium 8.4-10.2 <content [facility] [Mass/volume] styleCode="Layla Singer in Serum or d">Calcium Medical Plasma </content>9.5 Center MG/DL<content styleCode="Christina lics"> (8.4-10.2 MG/DL)</conten t> ID Date Data Source MROUTINECCDA.[id number] 10/06/2019 07:30:00 PM EDT [facility] -0400 Name Value Range Interpretation Code Description Data Debra rce(s) Supporting Document(s ) UNK 0.7-2.0 <content [facility] styleCode="Bold" Medical Cente r >Lactic Acid 4hr </content>0.9 MMOLL<content styleCode="Itali cs"> (0.7-2.0 MMOLL)</content> ID Date Data Source Microbiology.[id number] 10/06/2019 04:20:00 PM EDT [facility] 400 Name Value Range Interpretation Code Description Data Debra rce(s) Supporting Document(s ) UNK <item><content Lu[facility]cia styleCode="Bold"> Medical Cent er Culture Report </content>
<t able><tbody><tr>< td>Specimen Number:</td><td>[id number]</td></tr ><tr><td>Sample Collection Date/Time: </td><td>10/06/2019 4:20 PM</td></tr><tr>< td>Specimen Source:</td><td>B LOOD</td></tr><tr ><td>Blood Culture:</td><td> Collection Plate Date: 10/06/2019 16:21 </td></tr><tr><td >Culture Status:</td><td>F inal </td></tr><tr><td >Culture Report:</td><td>N O GROWTH 5 DAYS </td></tr></tbody ></table></item> UNK <item><content [facility] donisCode="Bold"> Medical Cent er Culture Status </content>
<t able><tbody><tr>< td>Specimen Number:</td><td>[id number]</td></tr ><tr><td>Sample Collection Date/Time: </td><td>10/06/2019 4:20 PM</td></tr><tr>< td>Specimen Source:</td><td>B LOOD</td></tr><tr ><td>Blood Culture:</td><td> Collection Plate Date: 10/06/2019 16:21 </td></tr><tr><td >Culture Report:</td><td>N O GROWTH 5 DAYS </td></tr><tr><td >Culture Status:</td><td>F inal </td></tr></tbody ></table></item> ID Date Data Source Microbiology.[id number] 10/06/2019 04:00:00 PM EDT [facility] 400 Name Value Range Interpretation Code Description Data Debra rce(s) Supporting Document(s ) UNK <item><content [facility] donisCode="Bold"> Medical [facility] er Culture Status </content>
<t able><tbody><tr>< td>Specimen Number:</td><td>[id number]</td></tr ><tr><td>Sample Collection Date/Time: </td><td>10/06/2019 4:00 PM</td></tr><tr>< td>Specimen Source:</td><td>B LOOD</td></tr><tr ><td>Culture Report:</td><td>N O GROWTH 5 DAYS </td></tr><tr><td >Culture Status:</td><td>F inal </td></tr><tr><td >Blood Culture:</td><td> Collection Plate Date: 10/06/2019 16:12 </td></tr></tbody ></table></item> UNK <item><content [facility] styleCode="Bold"> Medical Cent er Culture Report </content>
<t able><tbody><tr>< td>Specimen Number:</td><td>[id number]</td></tr ><tr><td>Sample Collection Date/Time: </td><td>10/06/2019 4:00 PM</td></tr><tr>< td>Specimen Source:</td><td>B LOOD</td></tr><tr ><td>Blood Culture:</td><td> Collection Plate Date: 10/06/2019 16:12 </td></tr><tr><td >Culture Status:</td><td>F inal </td></tr><tr><td >Culture Report:</td><td>N O GROWTH 5 DAYS </td></tr></tbody ></table></item> ID Date Data Source HematologySpeci.[id number] 10/06/2019 04:00:00 PM [facility] Name Value Range Interpretation Description Data Sup porting Code Source(s) Document(s ) C reactive < 3.0 Above high normal <content [facility] hs protein styleCode="Bold Medical [Mass/volume ">C-Reactive Center ] in Serum Protein or Plasma </content>> 15.0 MG/L H<content styleCode="Ital ics"> (< 3.0 MG/L)</content> ID Date Data Source Coagulation 10/06/2019 04:00:00 PM [facility] Rout.[id number] EDT Name Value Range Interpretation Description Data Sup porting Code Source(s) Document(s ) UNK 9.0-13.0 <content [facility] styleCode="Layla Lucrecia d">Protime Medical </content>12.6 Center SEC<content styleCode="Christina lics"> (9.0-13.0 SEC)</content> INR in 0.80-1.2 <content [facility] Platelet poor 0 styleCode[facility] plasma by d">INR Medical Coagulation </content>1.14 Center assay #<content styleCode="Christina lics"> (0.80-1.20 #)</content> ID Date Data Source CardiacMarkers.[id number] 10/06/2019 04:00:00 PM EDT [facility] -0400 Name Value Range Interpretation Description Data Sup porting Code Source(s) Document(s ) Troponin < 0.034 <content [facility] I.cardiac styleCode="Bold Lucrecia [Mass/volume ">Troponin I Medical ] in Serum </content>0.027 Center or Plasma NG/ML<content styleCode="Ital ics"> (< 0.034 NG/ML)</content > ID Date Data Source Liver 10/06/2019 04:00:00 PM EDT [facility] Profile.[id number] Name Value Range Interpretation Description Data Sup porting Code Source(s) Document(s ) Aspartate 14-36 <content [facility] aminotransferase styleCode="Bold"> Abiel hs [Enzymatic Aspartate Medical activity/volume] Aminotransferase Center in Serum or Plasma (AST) </content>25 IU/L<content styleCode="Italic s"> (14-36 IU/L)</content> Bilirubin.total 0.2-1.3 <content [facility] [Mass/volume] in styleCode="Bold"> Abiel hs Serum or Plasma Bilirubin Total Medical </content>0.6 Center MG/DL<content styleCode="Italic s"> (0.2-1.3 MG/DL)</content> Alanine 7-30 <content [facility] aminotransferase styleCode="Bold"> Abiel hs [Enzymatic Alanine Medical activity/volume] Aminotransferase Center in Serum or Plasma (ALT) </content>23 IU/L<content styleCode="Italic s"> (7-30 IU/L)</content> Alkaline 38-126 <content [facility] phosphatase styleCode="Bold"> Lucrecia [Enzymatic Alkaline Medical activity/volume] Phosphatase (ALP) Cente r in Serum or Plasma </content>77 IU/L<content styleCode="Italic s"> (38-126 IU/L)</content> UNK 0.0-0.3 <content [facility] styleCode="Bold"> Lucre[place] Bilirubin, Direct Medical </content>< 0.2 Center MG/DL<content styleCode="Italic s"> (0.0-0.3 MG/DL)</content> Albumin 3.5-5.0 <content [facility] [Mass/volume] in styleCode="Bold"> Abiel hs Serum or Plasma Albumin Medical </content>3.7 Center G/DL<content styleCode="Italic s"> (3.5-5.0 G/DL)</content> ID Date Data Source HematologyRou.[id number] 10/06/2019 04:00:00 PM EDT [facility] 0400 Name Value Range Interpretation Description Data Sup porting Code Source(s) Document(s ) Leukocytes 4.4-11.0 <content [facility] [#/volume] in styleCode="Bold Lucrecia Blood by ">White Blood Medical Automated count Cell Count Center </content>9.62 KCUMM<content styleCode="Ital ics"> (4.4-11.0 KCUMM)</content > Erythrocytes 4.0-5.1 Below low normal <content [facility] [#/volume] in styleCode="Bold Lucrecia Blood by ">Red Blood Medical Automated count Cell Count Center </content>3.59 MCUMM L<content styleCode="Ital ics"> (4.0-5.1 MCUMM)</content > Hemoglobin 12.3-16. Below low normal <content [facility] [Mass/volume] in 0 styleCode="Bold Lucrecia Blood ">Hemoglobin Medical </content>10.1 Center G/DL L<content styleCode="Ital ics"> (12.3-16.0 G/DL)</content> Erythrocyte mean 32.0-37. <content [facility] corpuscular 0 styleCode="Bold Lucrecia hemoglobin ">Mean Corpus. Medical concentration Hgb Center [Mass/volume] by Concentration Automated count (MCHC) </content>32.5 G/DL<content styleCode="Ital ics"> (32.0-37.0 G/DL)</content> Erythrocyte mean 80.0-100 <content [facility] corpuscular .0 styleCode="Bold Lucrecia volume [Entitic ">Mean Medical volume] by Corpuscular Center Automated count Volume </content>86.6 FL<content styleCode="Ital ics"> (80.0-100.0 FL)</content> Erythrocyte mean 26.0-34. <content [facility] corpuscular 0 styleCode="Bold Lucrecia hemoglobin ">Mean Medical [Entitic mass] Corposcular Center by Automated Hemoglobin count </content>28.1 PG<content styleCode="Ital ics"> (26.0-34.0 PG)</content> Hematocrit 36.0-46. Below low normal <content [facility] [Volume 0 styleCode="Bold Lucrecia Fraction] of ">Hematocrit Medical Blood by </content>31.1 Center Automated count % L<content styleCode="Ital ics"> (36.0-46.0 %)</content> Erythrocyte 11.5-14. <content [facility] distribution 5 styleCode="Bold Lucrecia width [Ratio] by ">Red Cell Medical Automated count Distribution Center Width </content>13.8 %<content styleCode="Ital ics"> (11.5-14.5 %)</content> Platelets 130-400 <content [facility] [#/volume] in styleCode="Bold Lucrecia Blood by ">Platelet Medical Automated count Count Center </content>187 KCUMM<content styleCode="Ital ics"> (130-400 KCUMM)</content > Neutrophils 36-66 Above high <content [facility] [#/volume] in normal styleCode="Bold Lucrecia Blood by ">Neutrophil Medical Automated count </content>80.6 Center % H<content styleCode="Ital ics"> (36-66 %)</content> Platelet mean 8.0-11.0 <content [facility] volume [Entitic styleCode="Bold Lucrecia volume] in Blood ">Mean Platelet Medical by Automated Volume Center count </content>9.5 FL<content styleCode="Ital ics"> (8.0-11.0 FL)</content> UNK 1.0-4.8 <content [facility] styleCode="Bold Lucrecia ">Lymphocyte Medical Count Center </content>1.02 KCUMM<content styleCode="Ital ics"> (1.0-4.8 KCUMM)</content > Lymphocytes 24.0-44. Below low normal <content [facility] [#/volume] in 0 styleCode="Bold Lucrecia Blood by ">Lymphocyte Medical Automated count </content>10.6 Center % L<content styleCode="Ital ics"> (24.0-44.0 %)</content> Monocytes 3.0-10.0 <content [facility] [#/volume] in styleCode="Bold Lucrecia Blood by ">Monocyte Medical Automated count </content>7.9 Center %<content styleCode="Ital ics"> (3.0-10.0 %)</content> UNK 1.6-7.3 Above high <content [facility] normal styleCode="Bold Lucrecia ">Neutrophil Medical Count Center </content>7.75 KCUMM H<content styleCode="Ital ics"> (1.6-7.3 KCUMM)</content > UNK 0.0-0.3 <content [facility] styleCode="Bold Lucrecia ">Basophil Medical Count Center </content>0.01 KCUMM<content styleCode="Ital ics"> (0.0-0.3 KCUMM)</content > Eosinophils 0-5.0 <content [facility] [#/volume] in styleCode="Bold Lucrecia Blood by ">Eosinophil Medical Automated count </content>0.0 Center %<content styleCode="Ital ics"> (0-5.0 %)</content> UNK 0.0-0.6 <content [facility] styleCode="Bold Lucrecia ">Eosinophil Medical Count Center </content>0.00 KCUMM<content styleCode="Ital ics"> (0.0-0.6 KCUMM)</content > Basophils 0.0-1.0 <content [facility] [#/volume] in styleCode="Bold [facility] Blood by ">Basophil Medical Automated count </content>0.1 Center %<content styleCode="Ital ics"> (0.0-1.0 %)</content> UNK 0.2-0.9 <content [facility] styleCode="Bold Lucrecia ">Monocyte Medical Count Center </content>0.76 KCUMM<content styleCode="Ital ics"> (0.2-0.9 KCUMM)</content > UNK 0.0 <content [facility] styleCode="Bold Lucrecia ">Nucleated Red Medical Blood Cell Center Count </content>0.00 KCUMM<content styleCode="Ital ics"> (0.0 KCUMM)</content > UNK 0-0.1 <content [facility] styleCode="Bold Lucrecia ">Immature Medical Granulocyte Center Count </content>0.08 KCUMM<content styleCode="Ital ics"> (0-0.1 KCUMM)</content > UNK < 1 <content [facility] styleCode="Bold Lucrecia ">Immature Medical Granulocyte Center Ratio </content>0.8 %<content styleCode="Ital ics"> (< 1 %)</content> UNK 0 <content [facility] styleCode="Bold Lucrecia ">Nucleated Red Medical Blood Cell Center </content>0.0 /100<content styleCode="Ital ics"> (0 /100)</content> ID Date Data Source GFR(Creatinine).[id number] 10/06/2019 04:00:00 PM EDT [facility] 0-0400 Name Value Range Interpretation Code Description Data Debra rce(s) Supporting Document(s ) UNK > 60 <content [facility] styleCode="Bold"> Medical Cent er EGFR </content>79 GFR<content styleCode="Italic s"> (> 60 GFR)</content> ID Date Data Source [id number] 10/06/2019 04:00:00 PM EDT [facility] -0400 Name Value Range Interpretation Description Data Sup porting Code Source(s) Document(s ) Ferritin 7-264 <content [facility] [Mass/volume styleCode="Bold Lucrecia ] in Serum ">Ferritin Medical or Plasma </content>96.1 Center NG/ML<content styleCode="Ital ics"> (7-264 NG/ML)</content > UNK 30-110 <content [facility] styleCode="Bold Lucrecia ">Amylase Medical </content>56 Center IU/L<content styleCode="Ital ics"> (30-110 IU/L)</content> Lactate 0.7-2.0 <content [facility] [Mass/volume styleCode="Bold Lucrecia ] in Serum ">Lactic Acid Medical or Plasma </content>0.9 Center MMOLL<content styleCode="Ital ics"> (0.7-2.0 MMOLL)</content > Lipase 23-300 Above high normal <content [facility] [Enzymatic styleCode="Bold Lucrecia activity/vol ">Lipase Medical ume] in </content>454 Center Serum or IU/L H<content Plasma styleCode="Ital ics"> (23-300 IU/L)</content> ID Date Data Source [facility].[id number] 10/06/2019 04:00:[address] [facility] Name Value Range Interpretation Description Data Sup porting Code Source(s) Document(s ) Sodium 137-145 <content [facility] [Moles/volume] in styleCode="Bold"> Isiah phs Serum or Plasma Sodium Medical </content>137 Center MEQ/L<content styleCode="Italic s"> (137-145 MEQ/L)</content> Chloride 98-107 <content [facility] [Moles/volume] in styleCode="Bold"> [facility]iah [facility] Serum or Plasma Chloride Medical </content>98 Center MEQ/L<content styleCode="Italic s"> (98-107 MEQ/L)</content> Potassium 3.5-5.3 Below low <content [facility] [Moles/volume] in normal styleCode="Bold"> Isiah phs Serum or Plasma Potassium Medical </content>3.2 Center MEQ/L L<content styleCode="Italic s"> (3.5-5.3 MEQ/L)</content> Glucose 74-106 Above high <content [facility] [Mass/volume] in normal styleCode="Bold"> Abiel hs Serum or Plasma Glucose Medical </content>181 Center MG/DL H<content styleCode="Italic s"> (74-106 MG/DL)</content> Creatinine 0.5-1.3 <content [facility] [Mass/volume] in styleCode="Bold"> Abiel hs Serum or Plasma Creatinine Medical </content>0.9 Center MG/DL<content styleCode="Italic s"> (0.5-1.3 MG/DL)</content> UNK 7-17 Above high <content [facility] normal styleCode="Bold"> [facility] BUN </content>22 Medical MG/DL H<content Center styleCode="Italic s"> (7-17 MG/DL)</content> Carbon dioxide, 22-30 <content [facility] total styleCode="Bold"> [place] [Moles/volume] in Carbon Dioxide Medical Serum or Plasma </content>29 Center MEQ/L<content styleCode="Italic s"> (22-30 MEQ/L)</content> UNK > 60 <content [facility] styleCode="Bold"> [place] EGFR </content>79 Medical GFR<content Center styleCode="Italic s"> (> 60 GFR)</content> Aspartate 14-36 <content [facility] aminotransferase styleCode="Bold"> Abiel hs [Enzymatic Aspartate Medical activity/volume] Aminotransferase Center in Serum or Plasma (AST) </content>25 IU/L<content styleCode="Italic s"> (14-36 IU/L)</content> Calcium 8.4-10. <content [facility] [Mass/volume] in 2 styleCode="Bold"> Abiel hs Serum or Plasma Calcium Medical </content>9.9 Center MG/DL<content styleCode="Italic s"> (8.4-10.2 MG/DL)</content> Alkaline 38-126 <content [facility] phosphatase styleCode="Bold"> [place] [Enzymatic Alkaline Medical activity/volume] Phosphatase (ALP) Cente r in Serum or Plasma </content>77 IU/L<content styleCode="Italic s"> (38-126 IU/L)</content> Bilirubin.total 0.2-1.3 <content [facility] [Mass/volume] in styleCode="Bold"> Abiel hs Serum or Plasma Bilirubin Total Medical </content>0.6 Center MG/DL<content styleCode="Italic s"> (0.2-1.3 MG/DL)</content> Alanine 7-30 <content [facility] aminotransferase styleCode="Bold"> Abiel hs [Enzymatic Alanine Medical activity/volume] Aminotransferase Center in Serum or Plasma (ALT) </content>23 IU/L<content styleCode="Italic s"> (7-30 IU/L)</content> Albumin 3.5-5.0 <content [facility] [Mass/volume] in styleCode="Bold"> Abiel hs Serum or Plasma Albumin Medical </content>3.7 Center G/DL<content styleCode="Italic s"> (3.5-5.0 G/DL)</content> ID Date Data Source HematologyRou.[id number] 05/23/2019 06:01:[address] [facility] 0500 Name Value Range Interpretation Description Data Sup porting Code Source(s) Document(s ) Leukocytes 4.4-11.0 <content [facility] [#/volume] in styleCode="Bold [place] Blood by ">White Blood Medical Automated count Cell Count Center </content>10.13 KCUMM<content styleCode="Ital ics"> (4.4-11.0 KCUMM)</content > Erythrocyte mean 80.0-100 <content [facility] corpuscular .0 styleCode="Bold Lucrecia volume [Entitic ">Mean Medical volume] by Corpuscular Center Automated count Volume </content>86.4 FL<content styleCode="Ital ics"> (80.0-100.0 FL)</content> Hematocrit 36.0-46. Below low normal <content [facility] [Volume 0 styleCode="Bold Lucrecia Fraction] of ">Hematocrit Medical Blood by </content>34.9 Center Automated count % L<content styleCode="Ital ics"> (36.0-46.0 %)</content> Hemoglobin 12.3-16. Below low normal <content [facility] [Mass/volume] in 0 styleCode="Bold Lucrecia Blood ">Hemoglobin Medical </content>11.5 Center G/DL L<content styleCode="Ital ics"> (12.3-16.0 G/DL)</content> Erythrocytes 4.0-5.1 <content [facility] [#/volume] in styleCode="Bold Lucrecia Blood by ">Red Blood Medical Automated count Cell Count Center </content>4.04 MCUMM<content styleCode="Ital ics"> (4.0-5.1 MCUMM)</content > Erythrocyte mean 32.0-37. <content [facility] corpuscular 0 styleCode="Bold Lucrecia hemoglobin ">Mean Corpus. Medical concentration Hgb Center [Mass/volume] by Concentration Automated count (MCHC) </content>33.0 G/DL<content styleCode="Ital ics"> (32.0-37.0 G/DL)</content> Erythrocyte mean 26.0-34. <content [facility] corpuscular 0 styleCode="Bold Lucrecia hemoglobin ">Mean Medical [Entitic mass] Corposcular Center by Automated Hemoglobin count </content>28.5 PG<content styleCode="Ital ics"> (26.0-34.0 PG)</content> Platelets 130-400 <content Saint [#/volume] in styleCode="Bold [place] Blood by ">Platelet Medical Automated count Count Center </content>263 KCUMM<content styleCode="Ital ics"> (130-400 KCUMM)</content > Erythrocyte 11.5-14. <content [facility] distribution 5 styleCode="Bold Lu[place]cia width [Ratio] by ">Red Cell Medical Automated count Distribution Center Width </content>13.1 %<content styleCode="Ital ics"> (11.5-14.5 %)</content> Platelet mean 8.0-11.0 <content [facility] volume [Entitic styleCode="Bold Lucrecia volume] in Blood ">Mean Platelet Medical by Automated Volume Center count </content>10.1 FL<content styleCode="Ital ics"> (8.0-11.0 FL)</content> UNK 0 <content [facility] styleCode="Bold [place]cia ">Nucleated Red Medical Blood Cell Center </content>0.0 /100<content styleCode="Ital ics"> (0 /100)</content> UNK 0.0 <content Saint styleCode="Bold Lucrecia ">Nucleated Red Medical Blood Cell Center Count </content>0.00 KCUMM<content styleCode="Ital ics"> (0.0 KCUMM)</content > ID Date Data Source GFR(Creatinine).[id number] 05/23/2019 06:01:00 AM [facility] 0-0500 Name Value Range Interpretation Code Description Data Debra rce(s) Supporting Document(s ) UNK > 60 <content [facility] styleCode="Bold"> Medical Cent er EGFR </content>106 GFR<content styleCode="Italic s"> (> 60 GFR)</content> ID Date Data Source CHMROUTINECCDA.[id number] 05/23/2019 06:01:00 AM [facility] -0500 Name Value Range Interpretation Description Data Sup porting Code Source(s) Document(s ) Magnesium 1.6-2.3 <content [facility] [Mass/volume] styleCode="Layla Lucrecia in Serum or d">Magnesium Medical Plasma </content>2.0 Center MG/DL<content styleCode="Christina lics"> (1.6-2.3 MG/DL)</conten t> ID Date Data Source [facility].[id number] 05/23/2019 06:01:00 AM [facility] Name Value Range Interpretation Description Data Sup porting Code Source(s) Document(s ) Sodium 137-145 <content [facility] [Moles/volume] styleCode="Layla Lucrecia in Serum or d">Sodium Medical Plasma </content>142 Center MEQ/L<content styleCode="Christina lics"> (137-145 MEQ/L)</conten t> Potassium 3.5-5.3 <content [facility] [Moles/volume] styleCode="Layla Lucrecia in Serum or d">Potassium Medical Plasma </content>3.9 Center MEQ/L<content styleCode="Christina lics"> (3.5-5.3 MEQ/L)</conten t> UNK 7-17 Above high normal <content [facility] styleCode="Layla Lucrecia d">BUN Medical </content>19 Center MG/DL H<content styleCode="Christina lics"> (7-17 MG/DL)</conten t> Chloride 98-107 <content [facility] [Moles/volume] styleCode="Layla Lucrecia in Serum or d">Chloride Medical Plasma </content>105 Center MEQ/L<content styleCode="Christina lics"> (98-107 MEQ/L)</conten t> Carbon 22-30 <content [facility] dioxide, total styleCode="Layla Lucrecia [Moles/volume] d">Carbon Medical in Serum or Dioxide Center Plasma </content>29 MEQ/L<content styleCode="Christina lics"> (22-30 MEQ/L)</conten t> Creatinine 0.5-1.3 <content [facility] [Mass/volume] styleCode="Layla Lucrecia in Serum or d">Creatinine Medical Plasma </content>0.7 Center MG/DL<content styleCode="Christina lics"> (0.5-1.3 MG/DL)</conten t> Calcium 8.4-10.2 Above high normal <content [facility] [Mass/volume] styleCode="Layla Lucrecia in Serum or d">Calcium Medical Plasma </content>10.3 Center MG/DL H<content styleCode="Christina lics"> (8.4-10.2 MG/DL)</conten t> Glucose 74-106 Above high normal <content [facility] [Mass/volume] styleCode="Layla Lucrecia in Serum or d">Glucose Medical Plasma </content>165 Center MG/DL H<content styleCode="Christina lics"> (74-106 MG/DL)</conten t> UNK > 60 <content Saint styleCode="Layla Lucrecia d">EGFR Medical </content>106 Center GFR<content styleCode="Christina lics"> (> 60 GFR)</content> ID Date Data Source HematologyRou.[id number] 05/22/2019 06:12:[address] [facility] 0500 Name Value Range Interpretation Description Data Sup porting Code Source(s) Document(s ) Leukocytes 4.4-11.0 <content Saint [#/volume] in styleCode="Bold Lucrecia Blood by ">White Blood Medical Automated count Cell Count Center </content>10.62 KCUMM<content styleCode="Ital ics"> (4.4-11.0 KCUMM)</content > Erythrocytes 4.0-5.1 <content Saint [#/volume] in styleCode="Bold [place] Blood by ">Red Blood Medical Automated count Cell Count Center </content>4.11 MCUMM<content styleCode="Ital ics"> (4.0-5.1 MCUMM)</content > Hematocrit 36.0-46. <content [facility] [Volume 0 styleCode="Bold Lucrecia Fraction] of ">Hematocrit Medical Blood by </content>36.2 Center Automated count %<content styleCode="Ital ics"> (36.0-46.0 %)</content> Hemoglobin 12.3-16. Below low normal <content [facility] [Mass/volume] in 0 styleCode="Bold Lucrecia Blood ">Hemoglobin Medical </content>11.8 Center G/DL L<content styleCode="Ital ics"> (12.3-16.0 G/DL)</content> Erythrocyte mean 80.0-100 <content [facility] corpuscular .0 styleCode="Bold Lucrecia volume [Entitic ">Mean Medical volume] by Corpuscular Center Automated count Volume </content>88.1 FL<content styleCode="Ital ics"> (80.0-100.0 FL)</content> Erythrocyte mean 32.0-37. <content [facility] corpuscular 0 styleCode="Bold Lucrecia hemoglobin ">Mean Corpus. Medical concentration Hgb Center [Mass/volume] by Concentration Automated count (MCHC) </content>32.6 G/DL<content styleCode="Ital ics"> (32.0-37.0 G/DL)</content> Erythrocyte 11.5-14. <content [facility] distribution 5 styleCode="Bold Lucrecia width [Ratio] by ">Red Cell Medical Automated count Distribution Center Width </content>12.9 %<content styleCode="Ital ics"> (11.5-14.5 %)</content> Erythrocyte mean 26.0-34. <content [facility] corpuscular 0 styleCode="Bold Lucrecia hemoglobin ">Mean Medical [Entitic mass] Corposcular Center by Automated Hemoglobin count </content>28.7 PG<content styleCode="Ital ics"> (26.0-34.0 PG)</content> UNK 0 <content Saint styleCode="Bold Lucrecia ">Nucleated Red Medical Blood Cell Center </content>0.0 /100<content styleCode="Ital ics"> (0 /100)</content> UNK 0.0 <content Saint styleCode="Bold Lucrecia ">Nucleated Red Medical Blood Cell Center Count </content>0.00 KCUMM<content styleCode="Ital ics"> (0.0 KCUMM)</content > Platelet mean 8.0-11.0 <content [facility] volume [Entitic styleCode="Bold Lucrecia volume] in Blood ">Mean Platelet Medical by Automated Volume Center count </content>10.2 FL<content styleCode="Ital ics"> (8.0-11.0 FL)</content> Platelets 130-400 <content Saint [#/volume] in styleCode="Bold Lucrecia Blood by ">Platelet Medical Automated count Count Center </content>250 KCUMM<content styleCode="Ital ics"> (130-400 KCUMM)</content > ID Date Data Source GFR(Creatinine).[id number] 05/22/2019 06:12:[address] [facility] 0-0500 Name Value Range Interpretation Code Description Data Debra rce(s) Supporting Document(s ) UNK > 60 <content [facility] styleCode="Bold"> Medical Cent er EGFR </content>106 GFR<content styleCode="Italic s"> (> 60 GFR)</content> ID Date Data Source XIOMARAMRDORYS.[id number] 05/22/2019 06:12:[address] [facility] -0500 Name Value Range Interpretation Description Data Sup porting Code Source(s) Document(s ) Magnesium 1.6-2.3 <content [facility] [Mass/volume] styleCode="Layla Lucrecia in Serum or d">Magnesium Medical Plasma </content>2.1 Center MG/DL<content styleCode="Christina lics"> (1.6-2.3 MG/DL)</conten t> ID Date Data Source [facility].[id number] 05/22/2019 06:12:[address] [facility] Name Value Range Interpretation Description Data Sup porting Code Source(s) Document(s ) Sodium 137-145 <content [facility] [Moles/volume] styleCode="Layla Lucrecia in Serum or d">Sodium Medical Plasma </content>142 Center MEQ/L<content styleCode="Christina lics"> (137-145 MEQ/L)</conten t> Carbon 22-30 <content [facility] dioxide, total styleCode="Layla Lucrecia [Moles/volume] d">Carbon Medical in Serum or Dioxide Center Plasma </content>28 MEQ/L<content styleCode="Christina lics"> (22-30 MEQ/L)</conten t> Chloride 98-107 <content [facility] [Moles/volume] styleCode="Layla Lucrecia in Serum or d">Chloride Medical Plasma </content>104 Center MEQ/L<content styleCode="Christina lics"> (98-107 MEQ/L)</conten t> Potassium 3.5-5.3 <content [facility] [Moles/volume] styleCode="Layla Lucrecia in Serum or d">Potassium Medical Plasma </content>3.5 Center MEQ/L<content styleCode="Christina lics"> (3.5-5.3 MEQ/L)</conten t> UNK 7-17 <content Saint styleCode="Layla Castillos d">BUN Medical </content>16 Center MG/DL<content styleCode="Christina lics"> (7-17 MG/DL)</conten t> Glucose 74-106 Above high normal <content [facility] [Mass/volume] styleCode="Layla Singer in Serum or d">Glucose Medical Plasma </content>176 Center MG/DL H<content styleCode="Christina lics"> (74-106 MG/DL)</conten t> Calcium 8.4-10.2 <content [facility] [Mass/volume] styleCode="Layla Castillos in Serum or d">Calcium Medical Plasma </content>10.1 Center MG/DL<content styleCode="Christina lics"> (8.4-10.2 MG/DL)</conten t> UNK > 60 <content [facility] styleCode="Layla Castillos d">EGFR Medical </content>106 Center GFR<content styleCode="Christina lics"> (> 60 GFR)</content> Creatinine 0.5-1.3 <content [facility] [Mass/volume] styleCode="Layla Castillos in Serum or d">Creatinine Medical Plasma </content>0.7 Center MG/DL<content styleCode="Christina lics"> (0.5-1.3 MG/DL)</conten t> ID Date Data Source Liver 05/21/2019 07:05:00 AM EST [facility] Profile.[id number] Name Value Range Interpretation Description Data Sup porting Code Source(s) Document(s ) Alanine 7-30 <content [facility] aminotransferase styleCode="Bold"> Abiel hs [Enzymatic Alanine Medical activity/volume] Aminotransferase Center in Serum or Plasma (ALT) </content>18 IU/L<content styleCode="Italic s"> (7-30 IU/L)</content> Aspartate 14-36 <content aminotransferase styleCode="Bold"> Abiel hs [Enzymatic Aspartate Medical activity/volume] Aminotransferase Center in Serum or Plasma (AST) </content>22 IU/L<content styleCode="Italic s"> (14-36 IU/L)</content> Alkaline 38-126 <content [facility] phosphatase styleCode="Bold"> Lucrecia [Enzymatic Alkaline Medical activity/volume] Phosphatase (ALP) Cente r in Serum or Plasma </content>66 IU/L<content styleCode="Italic s"> (38-126 IU/L)</content> Albumin 3.5-5.0 <content [facility] [Mass/volume] in styleCode="Bold"> Abiel hs Serum or Plasma Albumin Medical </content>3.8 Center G/DL<content styleCode="Italic s"> (3.5-5.0 G/DL)</content> Bilirubin.total 0.2-1.3 <content [facility] [Mass/volume] in styleCode="Bold"> Abiel hs Serum or Plasma Bilirubin Total Medical </content>0.7 Center MG/DL<content styleCode="Italic s"> (0.2-1.3 MG/DL)</content> ID Date Data Source HematologyRou.[id number] 05/21/2019 07:05:00 AM JOSEPH Seamus [facility] 0500 Name Value Range Interpretation Description Data Sup porting Code Source(s) Document(s ) Hemoglobin 12.3-16. Below low normal <content [facility] [Mass/volume] in 0 styleCode="Bold Lucrecia Blood ">Hemoglobin Medical </content>11.2 Center G/DL L<content styleCode="Ital ics"> (12.3-16.0 G/DL)</content> Erythrocytes 4.0-5.1 Below low normal <content Saint [#/volume] in styleCode="Bold Lucrecia Blood by ">Red Blood Medical Automated count Cell Count Center </content>3.88 MCUMM L<content styleCode="Ital ics"> (4.0-5.1 MCUMM)</content > Leukocytes 4.4-11.0 <content Saint [#/volume] in styleCode="Bold [facility] Blood by ">White Blood Medical Automated count Cell Count Center </content>10.73 KCUMM<content styleCode="Ital ics"> (4.4-11.0 KCUMM)</content > Erythrocyte mean 26.0-34. <content [facility] corpuscular 0 styleCode="Bold Lucrecia hemoglobin ">Mean Medical [Entitic mass] Corposcular Center by Automated Hemoglobin count </content>28.9 PG<content styleCode="Ital ics"> (26.0-34.0 PG)</content> Erythrocyte mean 80.0-100 <content [facility] corpuscular .0 styleCode="Bold Lucrecia volume [Entitic ">Mean Medical volume] by Corpuscular Center Automated count Volume </content>87.6 FL<content styleCode="Ital ics"> (80.0-100.0 FL)</content> Hematocrit 36.0-46. Below low normal <content [facility] [Volume 0 styleCode="Bold Lucrecia Fraction] of ">Hematocrit Medical Blood by </content>34.0 Center Automated count % L<content styleCode="Ital ics"> (36.0-46.0 %)</content> Platelets 130-400 <content Saint [#/volume] in styleCode="Bold Lucrecia Blood by ">Platelet Medical Automated count Count Center </content>237 KCUMM<content styleCode="Ital ics"> (130-400 KCUMM)</content > Erythrocyte mean 32.0-37. <content [facility] corpuscular 0 styleCode="Bold Lucrecia hemoglobin ">Mean Corpus. Medical concentration Hgb Center [Mass/volume] by Concentration Automated count (MCHC) </content>32.9 G/DL<content styleCode="Ital ics"> (32.0-37.0 G/DL)</content> Erythrocyte 11.5-14. <content [facility] distribution 5 styleCode="Bold Lucrecia width [Ratio] by ">Red Cell Medical Automated count Distribution Center Width </content>13.0 %<content styleCode="Ital ics"> (11.5-14.5 %)</content> Platelet mean 8.0-11.0 <content [facility] volume [Entitic styleCode="Bold Lucrecia volume] in Blood ">Mean Platelet Medical by Automated Volume Center count </content>9.8 FL<content styleCode="Ital ics"> (8.0-11.0 FL)</content> UNK 1.6-7.3 <content Saint styleCode="Bold Lucrecia ">Neutrophil Medical Count Center </content>6.55 KCUMM<content styleCode="Ital ics"> (1.6-7.3 KCUMM)</content > Neutrophils 36-66 <content Saint [#/volume] in styleCode="Bold Lucrecia Blood by ">Neutrophil Medical Automated count </content>61.0 Center %<content styleCode="Ital ics"> (36-66 %)</content> UNK 1.0-4.8 <content Saint styleCode="Bold Lucrecia ">Lymphocyte Medical Count Center </content>3.20 KCUMM<content styleCode="Ital ics"> (1.0-4.8 KCUMM)</content > Lymphocytes 24.0-44. <content [facility] [#/volume] in 0 styleCode="Bold Lucrecia Blood by ">Lymphocyte Medical Automated count </content>29.8 Center %<content styleCode="Ital ics"> (24.0-44.0 %)</content> Monocytes 3.0-10.0 <content Saint [#/volume] in styleCode="Bold Lucrecia Blood by ">Monocyte Medical Automated count </content>6.8 Center %<content styleCode="Ital ics"> (3.0-10.0 %)</content> UNK 0.2-0.9 <content Saint styleCode="Bold Lucrecia ">Monocyte Medical Count Center </content>0.73 KCUMM<content styleCode="Ital ics"> (0.2-0.9 KCUMM)</content > Eosinophils 0-5.0 <content Saint [#/volume] in styleCode="Bold Lucrecia Blood by ">Eosinophil Medical Automated count </content>1.5 Center %<content styleCode="Ital ics"> (0-5.0 %)</content> UNK 0.0-0.6 <content Saint styleCode="Bold Lucrecia ">Eosinophil Medical Count Center </content>0.16 KCUMM<content styleCode="Ital ics"> (0.0-0.6 KCUMM)</content > UNK 0 <content Saint styleCode="Bold Lucrecia ">Nucleated Red Medical Blood Cell Center </content>0.0 /100<content styleCode="Ital ics"> (0 /100)</content> Basophils 0.0-1.0 <content Saint [#/volume] in styleCode="Bold [facility] Blood by ">Basophil Medical Automated count </content>0.4 Center %<content styleCode="Ital ics"> (0.0-1.0 %)</content> UNK 0.0-0.3 <content Saint styleCode="Bold Lucrecia ">Basophil Medical Count Center </content>0.04 KCUMM<content styleCode="Ital ics"> (0.0-0.3 KCUMM)</content > UNK 0-0.1 <content Saint styleCode="Bold Lucrecia ">Immature Medical Granulocyte Center Count </content>0.05 KCUMM<content styleCode="Ital ics"> (0-0.1 KCUMM)</content > UNK < 1 <content Saint styleCode="Bold Lucrecia ">Immature Medical Granulocyte Center Ratio </content>0.5 %<content styleCode="Ital ics"> (< 1 %)</content> UNK 0.0 <content Saint styleCode="Bold Lucrecia ">Nucleated Red Medical Blood Cell Center Count </content>0.00 KCUMM<content styleCode="Ital ics"> (0.0 KCUMM)</content > ID Date Data Source GFR(Creatinine).[id number] 05/21/2019 07:05:00 AM EST Seamus [facility] 0-0500 Name Value Range Interpretation Code Description Data Debra rce(s) Supporting Document(s ) UNK > 60 <content [facility] styleCode="Bold"> Medical Cent er EGFR </content>106 GFR<content styleCode="Italic s"> (> 60 GFR)</content> ID Date Data [id number] 05/21/2019 07:05:00 AM JOSEPH cee [facility] -0500 Name Value Range Interpretation Description Data Sup porting Code Source(s) Document(s ) UNK >= 1.0 <content Saint styleCode="Bold Lucrecia ">AG Ratio Medical </content>1.2 Center <content styleCode="Ital ics"> (>= 1.0 )</content> UNK 2.3-3.5 <content Saint styleCode="Bold Lucrecia ">Globulin Medical </content>3.1 Center G/DL<content styleCode="Ital ics"> (2.3-3.5 G/DL)</content> Lactate 316-618 <content Saint dehydrogenase styleCode="Bold [facility] [Enzymatic ">Lactate Medical activity/volume] Dehydrogenase Center in Serum or (LDH) Plasma by </content>323 Pyruvate to IU/L<content lactate reaction styleCode="Ital ics"> (316-618 IU/L)</content> Protein 6.3-8.2 <content [facility] [Mass/volume] in styleCode="Bold [facility] Serum or Plasma ">Total Protein Medical </content>6.9 Center G/DL<content styleCode="Ital ics"> (6.3-8.2 G/DL)</content> ID Date Data Source [facility].[id number] 05/21/2019 07:05:00 AM JOSEPH [facility] Name Value Range Interpretation Description Data Sup porting Code Source(s) Document(s ) Sodium 137-145 <content [facility] [Moles/volume] in styleCode="Bold"> Isiah phs Serum or Plasma Sodium Medical </content>141 Center MEQ/L<content styleCode="Italic s"> (137-145 MEQ/L)</content> Chloride 98-107 <content [facility] [Moles/volume] in styleCode="Bold"> Isiah phs Serum or Plasma Chloride Medical </content>103 Center MEQ/L<content styleCode="Italic s"> (98-107 MEQ/L)</content> UNK 7-17 <content Saint styleCode="Bold"> [facility] BUN </content>17 Medical MG/DL<content Center styleCode="Italic s"> (7-17 MG/DL)</content> Carbon dioxide, 22-30 <content Saint total styleCode="Bold"> Lucrecia [Moles/volume] in Carbon Dioxide Medical Serum or Plasma </content>30 Center MEQ/L<content styleCode="Italic s"> (22-30 MEQ/L)</content> Potassium 3.5-5.3 Below low <content [facility] [Moles/volume] in normal styleCode="Bold"> Isiah phs Serum or Plasma Potassium Medical </content>3.2 Center MEQ/L L<content styleCode="Italic s"> (3.5-5.3 MEQ/L)</content> UNK > 60 <content [facility] styleCode="Bold"> [place] EGFR Medical </content>106 Center GFR<content styleCode="Italic s"> (> 60 GFR)</content> Calcium 8.4-10. <content [facility] [Mass/volume] in 2 styleCode="Bold"> Abiel hs Serum or Plasma Calcium Medical </content>10.1 Center MG/DL<content styleCode="Italic s"> (8.4-10.2 MG/DL)</content> Creatinine 0.5-1.3 <content [facility] [Mass/volume] in styleCode="Bold"> Abiel hs Serum or Plasma Creatinine Medical </content>0.7 Center MG/DL<content styleCode="Italic s"> (0.5-1.3 MG/DL)</content> Glucose 74-106 Above high <content [facility] [Mass/volume] in normal styleCode="Bold"> Abiel hs Serum or Plasma Glucose Medical </content>169 Center MG/DL H<content styleCode="Italic s"> (74-106 MG/DL)</content> Alanine 7-30 <content [facility] aminotransferase styleCode="Bold"> Abiel hs [Enzymatic Alanine Medical activity/volume] Aminotransferase Center in Serum or Plasma (ALT) </content>18 IU/L<content styleCode="Italic s"> (7-30 IU/L)</content> Alkaline 38-126 <content [facility] phosphatase styleCode="Bold"> Lucrecia [Enzymatic Alkaline Medical activity/volume] Phosphatase (ALP) Cente r in Serum or Plasma </content>66 IU/L<content styleCode="Italic s"> (38-126 IU/L)</content> Aspartate 14-36 <content [facility] aminotransferase styleCode="Bold"> Abiel hs [Enzymatic Aspartate Medical activity/volume] Aminotransferase Center in Serum or Plasma (AST) </content>22 IU/L<content styleCode="Italic s"> (14-36 IU/L)</content> Bilirubin.total 0.2-1.3 <content [facility] [Mass/volume] in styleCode="Bold"> Abiel hs Serum or Plasma Bilirubin Total Medical </content>0.7 Center MG/DL<content styleCode="Italic s"> (0.2-1.3 MG/DL)</content> Albumin 3.5-5.0 <content [facility] [Mass/volume] in styleCode="Bold"> Abiel hs Serum or Plasma Albumin Medical </content>3.8 Center G/DL<content styleCode="Italic s"> (3.5-5.0 G/DL)</content> ID Date Data Source Liver 05/20/2019 05:56:00 AM EST [facility] Profile.[id number] Name Value Range Interpretation Description Data Sup porting Code Source(s) Document(s ) Aspartate 14-36 <content [facility] aminotransferase styleCode="Bold"> Abiel hs [Enzymatic Aspartate Medical activity/volume] Aminotransferase Center in Serum or Plasma (AST) </content>20 IU/L<content styleCode="Italic s"> (14-36 IU/L)</content> Alanine 7-30 <content [facility] aminotransferase styleCode="Bold"> Abiel hs [Enzymatic Alanine Medical activity/volume] Aminotransferase Center in Serum or Plasma (ALT) </content>14 IU/L<content styleCode="Italic s"> (7-30 IU/L)</content> Alkaline 38-126 <content [facility] phosphatase styleCode="Bold"> Lu[place]cia [Enzymatic Alkaline Medical activity/volume] Phosphatase (ALP) Cente r in Serum or Plasma </content>63 IU/L<content styleCode="Italic s"> (38-126 IU/L)</content> Albumin 3.5-5.0 <content [facility] [Mass/volume] in styleCode="Bold"> Abiel hs Serum or Plasma Albumin Medical </content>3.5 Center G/DL<content styleCode="Italic s"> (3.5-5.0 G/DL)</content> Bilirubin.total 0.2-1.3 <content [facility] [Mass/volume] in styleCode="Bold"> Abiel hs Serum or Plasma Bilirubin Total Medical </content>0.6 Center MG/DL<content styleCode="Italic s"> (0.2-1.3 MG/DL)</content> ID Date Data Source HematologyRou.[id number] 05/20/2019 05:56:[address] [facility] 0500 Name Value Range Interpretation Description Data Sup porting Code Source(s) Document(s ) Leukocytes 4.4-11.0 <content [facility] [#/volume] in styleCode="Bold Lu[place]cia Blood by ">White Blood Medical Automated count Cell Count Center </content>10.72 KCUMM<content styleCode="Ital ics"> (4.4-11.0 KCUMM)</content > Erythrocytes 4.0-5.1 Below low normal <content Saint [#/volume] in styleCode="Bold Lucrecia Blood by ">Red Blood Medical Automated count Cell Count Center </content>3.71 MCUMM L<content styleCode="Ital ics"> (4.0-5.1 MCUMM)</content > Hematocrit 36.0-46. Below low normal <content Saint [Volume 0 styleCode="Bold [facility] Fraction] of ">Hematocrit Medical Blood by </content>32.4 Center Automated count % L<content styleCode="Ital ics"> (36.0-46.0 %)</content> Hemoglobin 12.3-16. Below low normal <content [facility] [Mass/volume] in 0 styleCode="Bold Lucrecia Blood ">Hemoglobin Medical </content>10.6 Center G/DL L<content styleCode="Ital ics"> (12.3-16.0 G/DL)</content> Erythrocyte mean 80.0-100 <content [facility] corpuscular .0 styleCode="Bold Lucrecia volume [Entitic ">Mean Medical volume] by Corpuscular Center Automated count Volume </content>87.3 FL<content styleCode="Ital ics"> (80.0-100.0 FL)</content> Erythrocyte mean 32.0-37. <content [facility] corpuscular 0 styleCode="Bold Lucrecia hemoglobin ">Mean Corpus. Medical concentration Hgb Center [Mass/volume] by Concentration Automated count (MCHC) </content>32.7 G/DL<content styleCode="Ital ics"> (32.0-37.0 G/DL)</content> Erythrocyte mean 26.0-34. <content [facility] corpuscular 0 styleCode="Bold Lucrecia hemoglobin ">Mean Medical [Entitic mass] Corposcular Center by Automated Hemoglobin count </content>28.6 PG<content styleCode="Ital ics"> (26.0-34.0 PG)</content> Neutrophils 36-66 <content Saint [#/volume] in styleCode="Bold [place] Blood by ">Neutrophil Medical Automated count </content>57.7 Center %<content styleCode="Ital ics"> (36-66 %)</content> Platelet mean 8.0-11.0 <content [facility] volume [Entitic styleCode="Bold Lucrecia volume] in Blood ">Mean Platelet Medical by Automated Volume Center count </content>10.0 FL<content styleCode="Ital ics"> (8.0-11.0 FL)</content> Platelets 130-400 <content Saint [#/volume] in styleCode="Bold [place] Blood by ">Platelet Medical Automated count Count Center </content>221 KCUMM<content styleCode="Ital ics"> (130-400 KCUMM)</content > Erythrocyte 11.5-14. <content [facility] distribution 5 styleCode="Bold [place] width [Ratio] by ">Red Cell Medical Automated count Distribution Center Width </content>13.0 %<content styleCode="Ital ics"> (11.5-14.5 %)</content> Lymphocytes 24.0-44. <content [facility] [#/volume] in 0 styleCode="Bold [place] Blood by ">Lymphocyte Medical Automated count </content>31.1 Center %<content styleCode="Ital ics"> (24.0-44.0 %)</content> UNK 1.0-4.8 <content Saint styleCode="Bold Lu[place] ">Lymphocyte Medical Count Center </content>3.33 KCUMM<content styleCode="Ital ics"> (1.0-4.8 KCUMM)</content > UNK 1.6-7.3 <content [facility] styleCode="Bold [place] ">Neutrophil Medical Count Center </content>6.19 KCUMM<content styleCode="Ital ics"> (1.6-7.3 KCUMM)</content > UNK 0.0-0.6 <content Saint styleCode="Bold [place] ">Eosinophil Medical Count Center </content>0.10 KCUMM<content styleCode="Ital ics"> (0.0-0.6 KCUMM)</content > UNK 0.2-0.9 Above high <content Saint normal styleCode="Bold [place] ">Monocyte Medical Count Center </content>1.02 KCUMM H<content styleCode="Ital ics"> (0.2-0.9 KCUMM)</content > Monocytes 3.0-10.0 <content [facility] [#/volume] in styleCode="Bold [place] Blood by ">Monocyte Medical Automated count </content>9.5 Center %<content styleCode="Ital ics"> (3.0-10.0 %)</content> Eosinophils 0-5.0 <content Saint [#/volume] in styleCode="Bold [place] Blood by ">Eosinophil Medical Automated count </content>0.9 Center %<content styleCode="Ital ics"> (0-5.0 %)</content> UNK 0 <content [facility] styleCode="Bold [place] ">Nucleated Red Medical Blood Cell Center </content>0.0 /100<content styleCode="Ital ics"> (0 /100)</content> UNK 0.0-0.3 <content Saint styleCode="Bold Lu[place] ">Basophil Medical Count Center </content>0.04 KCUMM<content styleCode="Ital ics"> (0.0-0.3 KCUMM)</content > Basophils 0.0-1.0 <content Saint [#/volume] in styleCode="Bold [place] Blood by ">Basophil Medical Automated count </content>0.4 Center %<content styleCode="Ital ics"> (0.0-1.0 %)</content> UNK 0.0 <content Saint styleCode="Bold [place] ">Nucleated Red Medical Blood Cell Center Count </content>0.00 KCUMM<content styleCode="Ital ics"> (0.0 KCUMM)</content > UNK < 1 <content Saint styleCode="Bold [place] ">Immature Medical Granulocyte Center Ratio </content>0.4 %<content styleCode="Ital ics"> (< 1 %)</content> UNK 0-0.1 <content Saint styleCode="Bold [place] ">Immature Medical Granulocyte Center Count </content>0.04 KCUMM<content styleCode="Ital ics"> (0-0.1 KCUMM)</content > ID Date Data Source GFR(Creatinine).[id number] 05/20/2019 05:56:00 AM [facility] 0-0500 Name Value Range Interpretation Code Description Data Debra rce(s) Supporting Document(s ) UNK > 60 <content [facility] styleCode="Bold"> Medical Cent er EGFR </content>106 GFR<content styleCode="Italic s"> (> 60 GFR)</content> ID Date Data Source CHMROUTINECCDA.[id number] 05/20/2019 05:56:00 AM [facility] -0500 Name Value Range Interpretation Description Data Sup porting Code Source(s) Document(s ) UNK 2.3-3.5 <content [facility] styleCode="Layla Lucrecia d">Globulin Medical </content>2.8 Center G/DL<content styleCode="Christina lics"> (2.3-3.5 G/DL)</content > UNK >= 1.0 <content [facility] styleCode="Layla Lucrecia d">AG Ratio Medical </content>1.2 Center <content styleCode="Christina lics"> (>= 1.0 )</content> UNK 4.2-5.8 Above high normal <content Saint styleCode="Layla Lucrecia d">Hemoglobin Medical A1C Center </content>7.5 % H<content styleCode="Christina lics"> (4.2-5.8 %)</content> Protein 6.3-8.2 <content [facility] [Mass/volume] styleCode="Layla Lucrecia in Serum or d">Total Medical Plasma Protein Center </content>6.3 G/DL<content styleCode="Christina lics"> (6.3-8.2 G/DL)</content > Magnesium 1.6-2.3 <content [facility] [Mass/volume] styleCode="Layla Lucrecia in Serum or d">Magnesium Medical Plasma </content>1.8 Center MG/DL<content styleCode="Christina lics"> (1.6-2.3 MG/DL)</conten t> ID Date Data Source [facility].[id number] 05/20/2019 05:56:00 AM [facility] Name Value Range Interpretation Description Data Sup porting Code Source(s) Document(s ) Sodium 137-145 <content Saint [Moles/volume] in styleCode="Bold"> [facility] Serum or Plasma Sodium Medical </content>140 Center MEQ/L<content styleCode="Italic s"> (137-145 MEQ/L)</content> Potassium 3.5-5.3 <content Saint [Moles/volume] in styleCode="Bold"> [facility] Serum or Plasma Potassium Medical </content>3.5 Center MEQ/L<content styleCode="Italic s"> (3.5-5.3 MEQ/L)</content> Carbon dioxide, 22-30 <content Saint total styleCode="Bold"> Lucrecia [Moles/volume] in Carbon Dioxide Medical Serum or Plasma </content>29 Center MEQ/L<content styleCode="Italic s"> (22-30 MEQ/L)</content> Chloride 98-107 <content [facility] [Moles/volume] in styleCode="Bold"> [facility] Serum or Plasma Chloride Medical </content>104 Center MEQ/L<content styleCode="Italic s"> (98-107 MEQ/L)</content> UNK 7-17 Above high <content Saint normal styleCode="Bold"> [place]cia BUN </content>18 Medical MG/DL H<content Center styleCode="Italic s"> (7-17 MG/DL)</content> Calcium 8.4-10. <content Saint [Mass/volume] in 2 styleCode="Bold"> Abiel hs Serum or Plasma Calcium Medical </content>9.7 Center MG/DL<content styleCode="Italic s"> (8.4-10.2 MG/DL)</content> Glucose 74-106 Above high <content Saint [Mass/volume] in normal styleCode="Bold"> Abiel hs Serum or Plasma Glucose Medical </content>151 Center MG/DL H<content styleCode="Italic s"> (74-106 MG/DL)</content> Creatinine 0.5-1.3 <content [facility] [Mass/volume] in styleCode="Bold"> Abiel hs Serum or Plasma Creatinine Medical </content>0.7 Center MG/DL<content styleCode="Italic s"> (0.5-1.3 MG/DL)</content> Aspartate 14-36 <content [facility] aminotransferase styleCode="Bold"> Abiel hs [Enzymatic Aspartate Medical activity/volume] Aminotransferase Center in Serum or Plasma (AST) </content>20 IU/L<content styleCode="Italic s"> (14-36 IU/L)</content> UNK > 60 <content Saint styleCode="Bold"> [place] EGFR Medical </content>106 Center GFR<content styleCode="Italic s"> (> 60 GFR)</content> Alkaline 38-126 <content [facility] phosphatase styleCode="Bold"> Lucrecia [Enzymatic Alkaline Medical activity/volume] Phosphatase (ALP) Cente r in Serum or Plasma </content>63 IU/L<content styleCode="Italic s"> (38-126 IU/L)</content> Alanine 7-30 <content [facility] aminotransferase styleCode="Bold"> Abiel hs [Enzymatic Alanine Medical activity/volume] Aminotransferase Center in Serum or Plasma (ALT) </content>14 IU/L<content styleCode="Italic s"> (7-30 IU/L)</content> Bilirubin.total 0.2-1.3 <content [facility] [Mass/volume] in styleCode="Bold"> Abiel hs Serum or Plasma Bilirubin Total Medical </content>0.6 Center MG/DL<content styleCode="Italic s"> (0.2-1.3 MG/DL)</content> Albumin 3.5-5.0 <content [facility] [Mass/volume] in styleCode="Bold"> Abiel hs Serum or Plasma Albumin Medical </content>3.5 Center G/DL<content styleCode="Italic s"> (3.5-5.0 G/DL)</content> ID Date Data Source BMP.[id number] 05/19/2019 12:17:[address] [facility] Name Value Range Interpretation Description Data Sup porting Code Source(s) Document(s ) Potassium 3.5-5.3 <content [facility] [Moles/volume styleCode="Layla Lucrecia ] in Serum or d">Potassium Medical Plasma </content>3.6 Center MEQ/L<content styleCode="Christina lics"> (3.5-5.3 MEQ/L)</conten t> ID Date Data Source Urinalysis.[id number] 05/19/2019 08:33:00 AM EST [facility] 0 Name Value Range Interpretation Description Data Sup porting Code Source(s) Document(s ) UNK CLEAR <content Saint styleCode="Layla Lucrecia d">Urine Medical Clarity Center </content>MAI R <content styleCode="Christina lics"> (CLEAR )</content> Color of Urine YELLOW <content Saint styleCode="Layla Castillos d">Color, Medical Urine Center </content>YELL OW <content styleCode="Christina lics"> (YELLOW )</content> UNK NEGATIVE <content Saint styleCode="Layla Lucrecia d">Urine Medical Bilirubin Center </content>NEGA TIVE <content styleCode="Christina lics"> (NEGATIVE )</content> Ketones NEGATIVE <content [facility] [Mass/volume] styleCode="Layla Castillos in Urine by d">Urine Medical Test strip Ketone Center </content>NEGA TIVE MG/DL<content styleCode="Christina lics"> (NEGATIVE MG/DL)</conten t> Glucose NEGATIVE <content [facility] [Mass/volume] styleCode="Layla Castillos in Urine by d">Urine Medical Test strip Glucose Center </content>NEGA TIVE MG/DL<content styleCode="Christina lics"> (NEGATIVE MG/DL)</conten t> Specific 1.015-1.02 <content [facility] gravity of 5 styleCode="Layla Singer Urine by Test d">Urine Medical strip Specific Center [place] </content>1.02 0 <content styleCode="Christina lics"> (1.015-1.025 )</content> Protein NEGATIVE <content [facility] [Mass/volume] styleCode="Layla Castillos in Urine by d">Urine Medical Test strip Protein Center </content>100 MG/DL<content styleCode="Christina lics"> (NEGATIVE MG/DL)</conten t> Hemoglobin NEGATIVE <content Saint [Presence] in styleCode="Layla Singer Urine by Test d">Urine Blood Medical strip </content>TRAC Center E <content styleCode="Christina lics"> (NEGATIVE )</content> pH of Urine by 4.5-8.0 <content Saint Test strip styleCode="Layla Lucrecia d">Urine pH Medical </content>6.5 Center <content styleCode="Christina lics"> (4.5-8.0 )</content> Nitrite NEGATIVE <content Saint [Presence] in styleCode="Layla Castillos Urine by Test d">Urine Medical strip Nitrite Center </content>NEGA TIVE <content styleCode="Christina lics"> (NEGATIVE )</content> Leukocyte NEGATIVE <content Saint esterase styleCode="Layla Lucrecia [Presence] in d">Urine Medical Urine by Test Leukocyte Center strip </content>NEGA TIVE <content styleCode="Christina lics"> (NEGATIVE )</content> Urobilinogen 0.2-1.0 <content Saint [Units/volume] styleCode="Layla Castillos in Urine by d">Urine Medical Test strip Urobilinogen Center </content>0.2 MG/DL<content styleCode="Christina lics"> (0.2-1.0 MG/DL)</conten t> UNK 0-3 <content Saint styleCode="Layla Lucrecia d">Urine White Medical Blood Cell Center </content>0-3 HPF<content styleCode="Christina lics"> (0-3 HPF)</content> UNK 0-3 <content Saint styleCode="Layla Lucrecia d">Urine Red Medical Blood Cell Center </content>0-3 HPF<content styleCode="Christina lics"> (0-3 HPF)</content> ID Date Data Source Hormones.[id number] 05/19/2019 05:40:00 AM JOSEPH [facility] Name Value Range Interpretation Description Data Sup porting Code Source(s) Document(s ) Thyrotropin 0.465-4. <content [facility] [Units/volume] 68 styleCode="Layla Lucrecia in Serum or d">Thyroid Medical Plasma by Stimulating Center Detection Hormone limit <= 0.05 </content>0.49 mIU/L 2 MIU/L<content styleCode="Christina lics"> (0.465-4.68 MIU/L)</conten t> ID Date Data Source HematologyRou.[id number] 05/19/2019 05:40:00 AM EST [facility] 0500 Name Value Range Interpretation Description Data Sup porting Code Source(s) Document(s ) Leukocytes 4.4-11.0 Above high <content Saint [#/volume] in normal styleCode="Bold Lucrecia Blood by ">White Blood Medical Automated count Cell Count Center </content>12.08 KCUMM H<content styleCode="Ital ics"> (4.4-11.0 KCUMM)</content > Erythrocytes 4.0-5.1 Below low normal <content Saint [#/volume] in styleCode="Bold Lucrecia Blood by ">Red Blood Medical Automated count Cell Count Center </content>3.79 MCUMM L<content styleCode="Ital ics"> (4.0-5.1 MCUMM)</content > Hematocrit 36.0-46. Below low normal <content [facility] [Volume 0 styleCode="Bold Lucrecia Fraction] of ">Hematocrit Medical Blood by </content>32.6 Center Automated count % L<content styleCode="Ital ics"> (36.0-46.0 %)</content> Hemoglobin 12.3-16. Below low normal <content [facility] [Mass/volume] in 0 styleCode="Bold Lucrecia Blood ">Hemoglobin Medical </content>10.8 Center G/DL L<content styleCode="Ital ics"> (12.3-16.0 G/DL)</content> Erythrocyte mean 26.0-34. <content [facility] corpuscular 0 styleCode="Bold Lucrecia hemoglobin ">Mean Medical [Entitic mass] Corposcular Center by Automated Hemoglobin count </content>28.5 PG<content styleCode="Ital ics"> (26.0-34.0 PG)</content> Erythrocyte mean 32.0-37. <content [facility] corpuscular 0 styleCode="Bold Lucrecia hemoglobin ">Mean Corpus. Medical concentration Hgb Center [Mass/volume] by Concentration Automated count (MCHC) </content>33.1 G/DL<content styleCode="Ital ics"> (32.0-37.0 G/DL)</content> Erythrocyte mean 80.0-100 <content [facility] corpuscular .0 styleCode="Bold Lucrecia volume [Entitic ">Mean Medical volume] by Corpuscular Center Automated count Volume </content>86.0 FL<content styleCode="Ital ics"> (80.0-100.0 FL)</content> Erythrocyte 11.5-14. <content [facility] distribution 5 styleCode="Bold Lucrecia width [Ratio] by ">Red Cell Medical Automated count Distribution Center Width </content>12.7 %<content styleCode="Ital ics"> (11.5-14.5 %)</content> Platelets 130-400 <content Saint [#/volume] in styleCode="Bold Lucrecia Blood by ">Platelet Medical Automated count Count Center </content>222 KCUMM<content styleCode="Ital ics"> (130-400 KCUMM)</content > UNK 0 <content Saint styleCode="Bold Lucrecia ">Nucleated Red Medical Blood Cell Center </content>0.0 /100<content styleCode="Ital ics"> (0 /100)</content> Platelet mean 8.0-11.0 <content Saint volume [Entitic styleCode="Bold Lucrecia volume] in Blood ">Mean Platelet Medical by Automated Volume Center count </content>9.3 FL<content styleCode="Ital ics"> (8.0-11.0 FL)</content> UNK 0.0 <content Saint styleCode="Bold Lucrecia ">Nucleated Red Medical Blood Cell Center Count </content>0.00 KCUMM<content styleCode="Ital ics"> (0.0 KCUMM)</content > ID Date Data Source GFR(Creatinine).[id number] 05/19/2019 05:40:00 AM [employer] [facility] 0-0500 Name Value Range Interpretation Code Description Data Debra rce(s) Supporting Document(s ) UNK > 60 <content [facility] styleCode="Bold"> Medical Cent er EGFR </content>127 GFR<content styleCode="Italic s"> (> 60 GFR)</content> ID Date Data Source CHMROUTINECCDA.[id number] 05/19/2019 05:40:00 AM [employer] [facility] -0500 Name Value Range Interpretation Description Data Sup porting Code Source(s) Document(s ) Ferritin 11-264 <content Saint [Mass/volume] styleCode="Layla Lucrecia in Serum or d">Ferritin Medical Plasma </content>37.1 Center NG/ML<content styleCode="Christina lics"> (11-264 NG/ML)</conten t> UNK 265-497 <content Saint styleCode="Layla Lucrecia d">TIBC Medical </content>281 Center UG/DL<content styleCode="Christina lics"> (265-497 UG/DL)</conten t> Iron 37-170 <content [facility] [Mass/volume] styleCode="Layla Lucrecia in Serum or d">Iron Medical Plasma </content>49 Center UG/DL<content styleCode="Christina lics"> (37-170 UG/DL)</conten t> Magnesium 1.6-2.3 <content [facility] [Mass/volume] styleCode="Layla Lucrecia in Serum or d">Magnesium Medical Plasma </content>1.6 Center MG/DL<content styleCode="Christina lics"> (1.6-2.3 MG/DL)</conten t> ID Date Data Source [facility].[id number] 05/19/2019 05:40:00 AM EST [facility] Name Value Range Interpretation Description Data Sup porting Code Source(s) Document(s ) Chloride 98-107 <content [facility] [Moles/volume] styleCode="Layla Lucrecia in Serum or d">Chloride Medical Plasma </content>102 Center MEQ/L<content styleCode="Christina lics"> (98-107 MEQ/L)</conten t> Sodium 137-145 <content [facility] [Moles/volume] styleCode="Layla Lucrecia in Serum or d">Sodium Medical Plasma </content>140 Center MEQ/L<content styleCode="Christina lics"> (137-145 MEQ/L)</conten t> Potassium 3.5-5.3 Below lower panic <content [facility] [Moles/volume] limits styleCode="Layla Lucrecia in Serum or d">Potassium Medical Plasma </content><con Center tent styleCode="Layla d">2.9 MEQ/L LL</content><c ontent styleCode="Christina lics"> (3.5-5.3 MEQ/L)</conten t> UNK 7-17 <content Saint styleCode="Layla Castillos d">BUN Medical </content>15 Center MG/DL<content styleCode="Christina lics"> (7-17 MG/DL)</conten t> Creatinine 0.5-1.3 <content [facility] [Mass/volume] styleCode="Layla Castillos in Serum or d">Creatinine Medical Plasma </content>0.6 Center MG/DL<content styleCode="Christina lics"> (0.5-1.3 MG/DL)</conten t> Glucose 74-106 Above high normal <content [facility] [Mass/volume] styleCode="Layla Castillos in Serum or d">Glucose Medical Plasma </content>128 Center MG/DL H<content styleCode="Christina lics"> (74-106 MG/DL)</conten t> Carbon 22-30 <content Saint dioxide, total styleCode="Layla Castillos [Moles/volume] d">Carbon Medical in Serum or Dioxide Center Plasma </content>30 MEQ/L<content styleCode="Christina lics"> (22-30 MEQ/L)</conten t> Calcium 8.4-10.2 <content [facility] [Mass/volume] styleCode="Layla Castillos in Serum or d">Calcium Medical Plasma </content>9.8 Center MG/DL<content styleCode="Christina lics"> (8.4-10.2 MG/DL)</conten t> UNK > 60 <content [facility] styleCode="Layla Castillos d">EGFR Medical </content>127 Center GFR<content styleCode="Christina lics"> (> 60 GFR)</content> ID Date Data Source Liver 05/18/2019 08:00:00 PM EST [facility] Profile.[id number] Name Value Range Interpretation Description Data Sup porting Code Source(s) Document(s ) Aspartate 14-36 <content [facility] aminotransferase styleCode="Bold"> Abiel hs [Enzymatic Aspartate Medical activity/volume] Aminotransferase Center in Serum or Plasma (AST) </content>21 IU/L<content styleCode="Italic s"> (14-36 IU/L)</content> Alanine 7-30 <content [facility] aminotransferase styleCode="Bold"> Abiel hs [Enzymatic Alanine Medical activity/volume] Aminotransferase Center in Serum or Plasma (ALT) </content>17 IU/L<content styleCode="Italic s"> (7-30 IU/L)</content> Albumin 3.5-5.0 <content [facility] [Mass/volume] in styleCode="Bold"> Abiel hs Serum or Plasma Albumin Medical </content>3.9 Center G/DL<content styleCode="Italic s"> (3.5-5.0 G/DL)</content> Bilirubin.total 0.2-1.3 <content [facility] [Mass/volume] in styleCode="Bold"> Abiel hs Serum or Plasma Bilirubin Total Medical </content>0.3 Center MG/DL<content styleCode="Italic s"> (0.2-1.3 MG/DL)</content> Alkaline 38-126 <content [facility] phosphatase styleCode="Bold"> Lu[place]cia [Enzymatic Alkaline Medical activity/volume] Phosphatase (ALP) Cente r in Serum or Plasma </content>71 IU/L<content styleCode="Italic s"> (38-126 IU/L)</content> ID Date Data Source Coagulation 05/18/2019 08:00:00 PM [facility] Rout.[id number] EST Name Value Range Interpretation Description Data Sup porting Code Source(s) Document(s ) UNK 9.0-13.0 <content [facility] styleCode="Bold" Lucrecia >Protime Medical </content>10.6 Center SEC<content styleCode="Itali cs"> (9.0-13.0 SEC)</content> aPTT in 25.1-36. <content Saint Platelet poor 5 styleCode="Bold" Lucrecia plasma by >Partial Medical Coagulation Thromboplastin Center assay Time </content>27.4 SEC<content styleCode="Itali cs"> (25.1-36.5 SEC)</content> INR in 0.80-1.2 <content [facility] Platelet poor 0 styleCode="Bold" Lucrecia plasma by >INR Medical Coagulation </content>0.95 Center assay #<content styleCode="Itali cs"> (0.80-1.20 #)</content> ID Date Data Source CardiacMarkers.[id number] 05/18/2019 08:00:00 PM EST [facility] -0500 Name Value Range Interpretation Description Data Sup porting Code Source(s) Document(s ) Creatine 30-135 <content [facility] [place] kinase styleCode="Bold Medical [Enzymatic ">CK Center activity/vol </content>59 ume] in IU/L<content Serum or styleCode="Ital Plasma ics"> (30-135 IU/L)</content> ID Date Data Source HematologyRou.[id number] 05/18/2019 08:00:00 PM EST [facility] 0500 Name Value Range Interpretation Description Data Sup porting Code Source(s) Document(s ) Leukocytes 4.4-11.0 Above high <content [facility] [#/volume] in normal styleCode="Bold Lucrecia Blood by ">White Blood Medical Automated count Cell Count Center </content>15.11 KCUMM H<content styleCode="Ital ics"> (4.4-11.0 KCUMM)</content > Hematocrit 36.0-46. Below low normal <content [facility] [Volume 0 styleCode="Bold Lucrecia Fraction] of ">Hematocrit Medical Blood by </content>33.7 Center Automated count % L<content styleCode="Ital ics"> (36.0-46.0 %)</content> Erythrocytes 4.0-5.1 Below low normal <content Saint [#/volume] in styleCode="Bold Lucrecia Blood by ">Red Blood Medical Automated count Cell Count Center </content>3.89 MCUMM L<content styleCode="Ital ics"> (4.0-5.1 MCUMM)</content > Hemoglobin 12.3-16. Below low normal <content [facility] [Mass/volume] in 0 styleCode="Bold Lucrecia Blood ">Hemoglobin Medical </content>11.2 Center G/DL L<content styleCode="Ital ics"> (12.3-16.0 G/DL)</content> Erythrocyte mean 80.0-100 <content [facility] corpuscular .0 styleCode="Bold Lucrecia volume [Entitic ">Mean Medical volume] by Corpuscular Center Automated count Volume </content>86.6 FL<content styleCode="Ital ics"> (80.0-100.0 FL)</content> Erythrocyte mean 26.0-34. <content [facility] corpuscular 0 styleCode="Bold Lucrecia hemoglobin ">Mean Medical [Entitic mass] Corposcular Center by Automated Hemoglobin count </content>28.8 PG<content styleCode="Ital ics"> (26.0-34.0 PG)</content> Erythrocyte mean 32.0-37. <content [facility] corpuscular 0 styleCode="Bold Lucrecia hemoglobin ">Mean Corpus. Medical concentration Hgb Center [Mass/volume] by Concentration Automated count (MCHC) </content>33.2 G/DL<content styleCode="Ital ics"> (32.0-37.0 G/DL)</content> Erythrocyte 11.5-14. <content [facility] distribution 5 styleCode="Bold Lucrecia width [Ratio] by ">Red Cell Medical Automated count Distribution Center Width </content>12.9 %<content styleCode="Ital ics"> (11.5-14.5 %)</content> UNK 1.6-7.3 Above high <content Saint normal styleCode="Bold Lucrecia ">Neutrophil Medical Count Center </content>12.73 KCUMM H<content styleCode="Ital ics"> (1.6-7.3 KCUMM)</content > Neutrophils 36-66 Above high <content Saint [#/volume] in normal styleCode="Bold Lucrecia Blood by ">Neutrophil Medical Automated count </content>84.2 Center % H<content styleCode="Ital ics"> (36-66 %)</content> Platelets 130-400 <content Saint [#/volume] in styleCode="Bold Lucrecia Blood by ">Platelet Medical Automated count Count Center </content>224 KCUMM<content styleCode="Ital ics"> (130-400 KCUMM)</content > Platelet mean 8.0-11.0 <content [facility] volume [Entitic styleCode="Bold Lucrecia volume] in Blood ">Mean Platelet Medical by Automated Volume Center count </content>9.3 FL<content styleCode="Ital ics"> (8.0-11.0 FL)</content> Lymphocytes 24.0-44. Below low normal <content Saint [#/volume] in 0 styleCode="Bold Lucrecia Blood by ">Lymphocyte Medical Automated count </content>11.0 Center % L<content styleCode="Ital ics"> (24.0-44.0 %)</content> Monocytes 3.0-10.0 <content Saint [#/volume] in styleCode="Bold Lucrecia Blood by ">Monocyte Medical Automated count </content>4.0 Center %<content styleCode="Ital ics"> (3.0-10.0 %)</content> UNK 0.2-0.9 <content [facility] styleCode="Bold Lucrecia ">Monocyte Medical Count Center </content>0.61 KCUMM<content styleCode="Ital ics"> (0.2-0.9 KCUMM)</content > UNK 1.0-4.8 <content Saint styleCode="Bold Lucrecia ">Lymphocyte Medical Count Center </content>1.66 KCUMM<content styleCode="Ital ics"> (1.0-4.8 KCUMM)</content > Eosinophils 0-5.0 <content Saint [#/volume] in styleCode="Bold Lucrecia Blood by ">Eosinophil Medical Automated count </content>0.1 Center %<content styleCode="Ital ics"> (0-5.0 %)</content> UNK 0.0-0.3 <content Saint styleCode="Bold Lucrecia ">Basophil Medical Count Center </content>0.03 KCUMM<content styleCode="Ital ics"> (0.0-0.3 KCUMM)</content > Basophils 0.0-1.0 <content Saint [#/volume] in styleCode="Bold [facility] Blood by ">Basophil Medical Automated count </content>0.2 Center %<content styleCode="Ital ics"> (0.0-1.0 %)</content> UNK 0.0-0.6 <content Saint styleCode="Bold Lucrecia ">Eosinophil Medical Count Center </content>0.01 KCUMM<content styleCode="Ital ics"> (0.0-0.6 KCUMM)</content > UNK < 1 <content Saint styleCode="Bold Lucrecia ">Immature Medical Granulocyte Center Ratio </content>0.5 %<content styleCode="Ital ics"> (< 1 %)</content> UNK 0 <content Saint styleCode="Bold Lucrecia ">Nucleated Red Medical Blood Cell Center </content>0.0 /100<content styleCode="Ital ics"> (0 /100)</content> UNK 0-0.1 <content Saint styleCode="Bold Lucrecia ">Immature Medical Granulocyte Center Count </content>0.07 KCUMM<content styleCode="Ital ics"> (0-0.1 KCUMM)</content > UNK 0.0 <content Saint styleCode="Bold Lucrecia ">Nucleated Red Medical Blood Cell Center Count </content>0.00 KCUMM<content styleCode="Ital ics"> (0.0 KCUMM)</content > ID Date Data Source GFR(Creatinine).[id number] 05/18/2019 08:00:00 PM EST [facility] 0-0500 Name Value Range Interpretation Code Description Data Debra rce(s) Supporting Document(s ) UNK > 60 <content [facility] styleCode="Bold"> Medical Cent er EGFR </content>127 GFR<content styleCode="Italic s"> (> 60 GFR)</content> ID Date Data [id number] 05/18/2019 08:00:00 PM EST [facility] -0500 Name Value Range Interpretation Description Data Sup porting Code Source(s) Document(s ) Protein 6.3-8.2 <content [facility] [Mass/volum styleCode="Bold Medical e] in Serum ">Total Protein Center or Plasma </content>6.8 G/DL<content styleCode="Ital ics"> (6.3-8.2 G/DL)</content> UNK >= 1.0 <content [facility] styleCode="Bold Medical ">AG Ratio Center </content>1.3 <content styleCode="Ital ics"> (>= 1.0 )</content> UNK 2.3-3.5 <content [facility] styleCode="Bold Medical ">Globulin Center </content>2.9 G/DL<content styleCode="Ital ics"> (2.3-3.5 G/DL)</content> ID Date Data Source [facility].[id number] 05/18/2019 08:00:[address] [facility] Name Value Range Interpretation Description Data Sup porting Code Source(s) Document(s ) Potassium 3.5-5.3 Below low <content [facility] [Moles/volume] in normal styleCode="Bold"> [facility] Serum or Plasma Potassium Medical </content>3.2 Center MEQ/L L<content styleCode="Italic s"> (3.5-5.3 MEQ/L)</content> Sodium 137-145 <content [facility] [Moles/volume] in styleCode="Bold"> [facility] Serum or Plasma Sodium Medical </content>137 Center MEQ/L<content styleCode="Italic s"> (137-145 MEQ/L)</content> Creatinine 0.5-1.3 <content [facility] [Mass/volume] in styleCode="Bold"> Abiel hs Serum or Plasma Creatinine Medical </content>0.6 Center MG/DL<content styleCode="Italic s"> (0.5-1.3 MG/DL)</content> Chloride 98-107 <content [facility] [Moles/volume] in styleCode="Bold"> [facility] Serum or Plasma Chloride Medical </content>99 Center MEQ/L<content styleCode="Italic s"> (98-107 MEQ/L)</content> UNK 7-17 Above high <content [facility] normal styleCode="Bold"> [place] BUN </content>20 Medical MG/DL H<content Center styleCode="Italic s"> (7-17 MG/DL)</content> Carbon dioxide, 22-30 <content [facility] total styleCode="Bold"> [facility] [Moles/volume] in Carbon Dioxide Medical Serum or Plasma </content>27 Center MEQ/L<content styleCode="Italic s"> (22-30 MEQ/L)</content> Calcium 8.4-10. <content [facility] [Mass/volume] in 2 styleCode="Bold"> Abiel hs Serum or Plasma Calcium Medical </content>9.7 Center MG/DL<content styleCode="Italic s"> (8.4-10.2 MG/DL)</content> Aspartate 14-36 <content [facility] aminotransferase styleCode="Bold"> Abiel hs [Enzymatic Aspartate Medical activity/volume] Aminotransferase Center in Serum or Plasma (AST) </content>21 IU/L<content styleCode="Italic s"> (14-36 IU/L)</content> UNK > 60 <content [facility] styleCode="Bold"> [facility] EGFR Medical </content>127 Center GFR<content styleCode="Italic s"> (> 60 GFR)</content> Glucose 74-106 Above high <content [facility] [Mass/volume] in normal styleCode="Bold"> Abiel hs Serum or Plasma Glucose Medical </content>252 Center MG/DL H<content styleCode="Italic s"> (74-106 MG/DL)</content> Alanine 7-30 <content [facility] aminotransferase styleCode="Bold"> Abiel hs [Enzymatic Alanine Medical activity/volume] Aminotransferase Center in Serum or Plasma (ALT) </content>17 IU/L<content styleCode="Italic s"> (7-30 IU/L)</content> Alkaline 38-126 <content [facility] phosphatase styleCode="Bold"> [facility] [Enzymatic Alkaline Medical activity/volume] Phosphatase (ALP) Cente r in Serum or Plasma </content>71 IU/L<content styleCode="Italic s"> (38-126 IU/L)</content> Bilirubin.total 0.2-1.3 <content [facility] [Mass/volume] in styleCode="Bold"> Abiel hs Serum or Plasma Bilirubin Total Medical </content>0.3 Center MG/DL<content styleCode="Italic s"> (0.2-1.3 MG/DL)</content> Albumin 3.5-5.0 <content [facility] [Mass/volume] in styleCode="Bold"> Abiel hs Serum or Plasma Albumin Medical </content>3.9 Center G/DL<content styleCode="Italic s"> (3.5-5.0 G/DL)</content> Procedure Social History Code Duration Value Status Description Data Source(s ) Smoking 10/08/2019 Denies Ever completed Denies Ever Smoked [facility] 07:29:00 PM EDT Smoked Medical C enter Smoking 10/08/2019 Denies Ever completed Denies Ever Smoked [facility] 11:02:00 AM EDT Smoked Medical C enter Smoking 10/06/2019 Denies Ever completed Denies Ever Smoked [facility] 07:14:00 PM EDT Smoked Medical C enter Smoking 10/06/2019 Denies Ever completed Denies Ever Smoked [facility] 04:50:00 PM EDT Smoked Medical C enter Smoking 10/06/2019 Denies Ever completed Denies Ever Smoked [facility] 02:30:00 PM EDT Smoked Medical C enter Smoking 05/20/2019 Denies Ever completed Denies Ever Smoked [facility] 11:07:00 AM EST Smoked Medical C enter Smoking 05/18/2019 Denies Ever completed Denies Ever Smoked [facility] 10:53:00 PM EST Smoked Medical C enter Smoking 05/18/2019 Denies Ever completed Denies Ever Smoked [facility] 10:10:00 PM EST Smoked Medical C enter Smoking 05/18/2019 Denies Ever completed Denies Ever Smoked [facility] 05:44:00 PM EST Smoked Medical C enter Smoking 05/18/2019 Denies Ever completed Denies Ever Smoked [facility] 05:00:00 PM EST Smoked Medical C enter Smoking 05/18/2019 Denies Ever completed Denies Ever Smoked [facility] 04:52:00 PM EST Smoked Medical C enter Vital Signs ID Date Data Source UNK Name Value Range Interpretation Code Description Data Source(s) Body temperature 36.222158 36.647723 [facility] Respiratory rate 18 /min 18 /min [facility] Heart rate 64 /min 64 /min [facility] Diastolic blood 64 mm[Hg] 64 mm[Hg] [facility] Systolic blood 157 mm[Hg] 157 mm[Hg] [facility] Body temperature 36.765374 36.775883 [facility] Respiratory rate 18 /min 18 /min [facility] Heart rate 79 /min 79 /min [facility] Diastolic blood 81 mm[Hg] 81 mm[Hg] [facility] Systolic blood 129 mm[Hg] 129 mm[Hg] [facility] Body temperature 36.465260 36.536728 [facility] Respiratory rate 18 /min 18 /min [facility] Heart rate 75 /min 75 /min [facility] Diastolic blood 64 mm[Hg] 64 mm[Hg] [facility] [place] Systolic blood 134 mm[Hg] 134 mm[Hg] [facility] Oxygen saturation 96 % 96 % [facility] in Arterial blood [facility] by Pulse oximetry Body temperature 36.047391 36.226099 [facility] Respiratory rate 19 /min 19 /min [facility] Heart rate 85 /min 85 /min [facility] Diastolic blood 89 mm[Hg] 89 mm[Hg] [facility] Center Systolic blood 198 mm[Hg] 198 mm[Hg] [facility] Body temperature 36.155381 36.334320 [facility] Respiratory rate 18 /min 18 /min [facility] Heart rate 73 /min 73 /min [facility] Diastolic blood 76 mm[Hg] 76 mm[Hg] [facility] Systolic blood 130 mm[Hg] 130 mm[Hg] [facility] Oxygen saturation 97 % 97 % [facility] in Arterial blood [facility] by Pulse oximetry Oxygen saturation 98 % 98 % [facility] in Arterial blood Medical Center by Pulse oximetry Oxygen saturation 94 % 94 % [facility] in Arterial blood [facility] Center by Pulse oximetry Body weight 65.233766 kg 65.639133 kg [facility] Body height 162.236632 162.420707 cm [facility] Body mass index 24.92 kg/m2 24.92 kg/m2 [facility] (BMI) [Ratio] Medical [address] [facility] Oxygen saturation 97 % 97 % [facility] in [facility] Center by Pulse oximetry Body weight 66.101612 kg 66.591019 kg [facility] Body temperature 37.552655 37.117963 [facility] Respiratory rate 19 /min 19 /min [facility] Oxygen saturation 94 % 94 % [facility] in [facility] by Pulse oximetry Heart rate 97 /min 97 /min [facility] Diastolic blood 78 mm[Hg] 78 mm[Hg] [facility] Systolic blood 157 mm[Hg] 157 mm[Hg] [facility] Body temperature 37.671853 37.260674 [facility] Respiratory rate 20 /min 20 /min [facility] Oxygen saturation 95 % 95 % [facility] in [facility] by Pulse oximetry Heart rate 113 /min 113 /min [facility] Diastolic blood 80 mm[Hg] 80 mm[Hg] [facility] Systolic blood 172 mm[Hg] 172 mm[Hg] [facility] Body temperature 37.419126 37.796473 [facility] Respiratory rate 20 /min 20 /min [facility] Oxygen saturation 93 % 93 % [facility] in [facility] by Pulse oximetry Heart rate 105 /min 105 /min [facility] Diastolic blood 80 mm[Hg] 80 mm[Hg] [facility] Systolic blood 165 mm[Hg] 165 mm[Hg] [facility] Body temperature 36.688735 36.049229 [facility] Respiratory rate 17 /min 17 /min [facility] Oxygen saturation 98 % 98 % [facility] in Arterial blood Medical Center by Pulse oximetry Heart rate 99 /min 99 /min [facility] Diastolic blood 76 mm[Hg] 76 mm[Hg] [facility] Systolic blood 159 mm[Hg] 159 mm[Hg] [facility] Body temperature 37.544122 37.953091 [facility] Respiratory rate 24 /min 24 /min [facility] Oxygen saturation 93 % 93 % [facility] in Arterial blood [facility] Center by Pulse oximetry Heart rate 113 /min 113 /min [facility] Diastolic blood 86 mm[Hg] 86 mm[Hg] [facility] Systolic blood 156 mm[Hg] 156 mm[Hg] [facility] Body weight 69.746821 kg 69.815543 kg [facility] Body height 162.858850 162.697982 cm [facility] Body mass index 26.2 kg/m2 26.2 kg/m2 [facility] (BMI) [Ratio] Medical [facility] ter Body temperature 36.072268 36.492664 [facility] Respiratory rate 18 /min 18 /min [facility] Heart rate 67 /min 67 /min [facility] Diastolic blood 74 mm[Hg] 74 mm[Hg] [facility] Systolic blood 158 mm[Hg] 158 mm[Hg] [facility] Body weight 69.063800 kg 69.635209 kg [facility] Body height 162.420578 162.429133 cm [facility] Body mass index 26.30 kg/m2 26.30 kg/m2 [facility] o[facility]phs (BMI) [Ratio] Medical [facility] ter Body temperature 36.192554 36.142587 [facility] Respiratory rate 18 /min 18 /min [facility] Oxygen saturation 97 % 97 % [facility] in Arterial blood [facility] by Pulse oximetry Heart rate 67 /min 67 /min [facility] Diastolic blood 81 mm[Hg] 81 mm[Hg] [facility] Systolic blood 152 mm[Hg] 152 mm[Hg] [facility] Body temperature 36.508488 36.815636 [facility] Respiratory rate 18 /min 18 /min [facility] Heart rate 76 /min 76 /min [facility] Diastolic blood 70 mm[Hg] 70 mm[Hg] [facility] Systolic blood 145 mm[Hg] 145 mm[Hg] [facility] Heart rate 64 /min 64 /min [facility] Diastolic blood 80 mm[Hg] 80 mm[Hg] [facility] Systolic blood 142 mm[Hg] 142 mm[Hg] [facility] Body temperature 36.806011 36.684353 [facility] Respiratory rate 20 /min 20 /min [facility] Heart rate 65 /min 65 /min [facility] Diastolic blood 62 mm[Hg] 62 mm[Hg] [facility] Systolic blood 160 mm[Hg] 160 mm[Hg] [facility] [place] Body weight 69.348548 kg 69.886101 kg [facility] Body height 162.116046 162.023618 cm [facility] [place] Body mass index 26.30 kg/m2 26.30 kg/m2 [facility] (BMI) [Ratio] Medical [facility] ter Body temperature 37.064439 37.521532 [facility] Respiratory rate 20 /min 20 /min [facility] Body temperature 36.979487 36.942048 [facility] Respiratory rate 18 /min 18 /min [facility] Heart rate 69 /min 69 /min [facility] Diastolic blood 70 mm[Hg] 70 mm[Hg] [facility] Systolic blood 178 mm[Hg] 178 mm[Hg] [facility] Body temperature 36.254937 36.511613 [facility] Respiratory rate 16 /min 16 /min [facility] Heart rate 74 /min 74 /min [facility] Diastolic blood 86 mm[Hg] 86 mm[Hg] [facility] Systolic blood 190 mm[Hg] 190 mm[Hg] [facility] Body temperature 36.352020 36.163518 [facility] Respiratory rate 20 /min 20 /min [facility] Heart rate 68 /min 68 /min [facility] Diastolic blood 86 mm[Hg] 86 mm[Hg] [facility] Systolic blood 179 mm[Hg] 179 mm[Hg] [facility] Body weight 69.864282 kg 69.378214 kg [facility] Oxygen saturation 95 % 95 % [facility] in [facility] blood [facility] Center by Pulse oximetry Body height 162.073743 162.911661 cm [facility] Body mass index 26.30 kg/m2 26.30 kg/m2 [facility] (BMI) [Ratio] [facility] Body temperature 36.069604 36.633819 [facility] Respiratory rate 18 /min 18 /min [facility] Heart rate 69 /min 69 /min [facility] Diastolic blood 87 mm[Hg] 87 mm[Hg] [facility] Center Systolic blood 179 mm[Hg] 179 mm[Hg] [facility] Oxygen saturation 97 % 97 % [facility] in [facility] Center by Pulse oximetry Body temperature 37.450339 37.182075 [facility] Respiratory rate 18 /min 18 /min [facility] Heart rate 76 /min 76 /min [facility] Diastolic blood 83 mm[Hg] 83 mm[Hg] [facility] Center Systolic blood 176 mm[Hg] 176 mm[Hg] [facility] Oxygen saturation 97 % 97 % [facility] in [facility] blood [facility] Center by Pulse oximetry Body weight 65.314248 kg 65.318367 kg [facility] Oxygen saturation 97 % 97 % [facility] in [facility] blood [facility] Center by Pulse oximetry Body height 162.429708 162.503180 cm [facility] Body mass index 24.5 kg/m2 24.5 kg/m2 [facility] (BMI) [Ratio] Medical [facility] Patient Treatment Plan of Care Planned Activity Planned Date Details Description Data Source (s) Metformin hydrochloride 1000 [facility] Medical MG / sitagliptin 50 MG Oral Center Tablet [Janumet] atorvastatin 40 MG Oral Anand t [facility] Tablet Center Amlodipine 5 MG / Benazepril [facility] hydrochloride [address] Capsule olopatadine 1 MG/ML [facility] Ophthalmic Solution [place] 24 HR metoprolol succinate S [facility] 50 MG Extended Release Oral Center Tablet Hydralazine Hydrochloride 50 [facility] MG Oral Tablet Center glimepiride 4 MG Oral Tablet [facility] Bisacodyl 5 MG Delayed [facility] Release Oral Tablet Center Aspirin 81 MG Delayed [facility] Medical Release Oral Tablet Center Acetaminophen 325 MG / [facility] Oxycodone Hydrochloride 5 MG Center Oral Tablet POLYETHYLENE GLYCOL 3350 142 [facility] Medical MG/ML Oral Solution Center Docusate Sodium 50 MG / [facility] sennoside, CARE HOME 8.6 MG Oral Center Tablet Sodium Phosphate, Dibasic [facility] 59.3 MG/ML / Sodium Center Phosphate, Monobasic 161 MG/ML Enema Acetaminophen 325 MG / [facility] Oxycodone Hydrochloride 5 MG Center Oral Tablet Docusate Sodium 50 MG / [facility] sennosides, C[facility] HOME 8.6 MG Oral Center Tablet Sodium Phosphate, Dibasic [facility] 59.3 MG/ML / Sodium Center Phosphate, Monobasic 161 MG/ML Enema Metformin hydrochloride 1000 [facility] Medical MG / sitagliptin 50 MG Oral Center Tablet [Janumet] POLYETHYLENE GLYCOL 3350 142 [facility] Medical MG/ML Oral Solution Center olopatadine 1 MG/ML [facility] Ophthalmic Solution [place] 24 HR metoprolol succinate S [facility] 50 MG Extended Release Oral Center Tablet Hydralazine Hydrochloride 50 [facility] MG Oral Tablet Center glimepiride 4 MG Oral Tablet [facility] Bisacodyl 5 MG Delayed [facility] Release Oral Tablet Center atorvastatin 40 MG Oral [facility] Tablet Center Aspirin 81 MG Delayed [facility] Medical Release Oral Tablet Center Amlodipine 5 MG / Benazepril [facility] Medical hydrochloride [address] Capsule
[2020-03-21] MEDS ORDERED: SODIUM CHLORIDE 250 ML IV ONE (14:30)
[2020-03-21 14:48] LABS: BASO % 0.2 % (0-2.0); EOS % 1.3 % (0-4.5); HEMATOCRIT 25.1 % (32.4-45.2); HEMOGLOBIN 8.3 GM/dL (10.7-15.3); LYMPH % 7.5 % (8-40); MCHC 33.1 g/dl (32.0-36.0); MEAN CELL VOLUME 90.7 fl (80-96); MEAN PLT VOLUME 8.8 fl (7.5-11.1); MONO % 8.1 % (3.8-10.2); NEUT % 82.9 % (42.8-82.8); PLATELET COUNT 179 K/MM3 (134-434); RBC 2.77 M/mm3 (3.60-5.2); RDW 17.3 % (11.6-15.6); WHITE BLOOD COUNT 10.1 K/mm3 (4.0-10.0)
[2020-03-21] MEDS ORDERED: DENOSUMAB 120 MG/1.7 ML VIAL SQ ONE (15:00)
[2020-03-21] MEDS ORDERED: BORTEZOMIB (VELCADE) 2.5 MG/ML SUB-Q INJECTION SQ ONE ×2 (15:00)
[2020-03-21] MEDS ORDERED: DEXAMETHASONE 4 MG TABLET (FP) PO ONE (15:00)
[2020-03-21 15:13] LABS: ALBUMIN 3.2 g/dl (3.4-5.0); BILIRUBIN,DIRECT 0.1 mg/dL (0.0-0.2); BILIRUBIN,TOTAL 0.4 mg/dL (0.2-1); BLOOD UREA NITROGEN 23.8 mg/dL (7-18); CALCIUM 8.5 mg/dL (8.5-10.1); POTASSIUM 3.3 mmol/L (3.5-5.1)
[2020-03-21] MEDS ORDERED: POTASSIUM CHLORIDE TABS 20 MEQ TABLET.ER (FP) PO ONE (16:15)
[2020-03-21 18:43] VITALS: PULSE 80; TEMP 98.8
[2020-03-21 18:49] VITALS: BP 132/67
== END 2020-03-21 17:00 | disposition home or self-care (01) ==
LOC: JONCCHEMO 07:10
PROVIDERS: ATTEND Internal Medicine Hematology & Oncology
PROC: 3E033GC Introduction of Other Therapeutic Substance into Peripheral Vein, Percutaneous Approach (ICD-10-PCS; principal; 2020-03-21)
PROC: 3E01305 Introduction of Other Antineoplastic into Subcutaneous Tissue, Percutaneous Approach (ICD-10-PCS; 2020-03-21)
PROC: 3E013GC Introduction of Other Therapeutic Substance into Subcutaneous Tissue, Percutaneous Approach (ICD-10-PCS; 2020-03-21)
DX: Z51.11 Encounter for antineoplastic chemotherapy (principal); C90.00 Multiple myeloma not having achieved remission; E11.9 Type 2 diabetes mellitus without complications; I10 Essential (primary) hypertension
CPT/HCPCS: 36415; 80048; 80076; 83735; 85025; 96365; 96372; 96401; J0897; J9041

== ENCOUNTER 2020-03-28 07:14 | Day surgery (SDC) | payer OTHER, BC ==
--- OUTSIDE RECORDS SUMMARY | 2020-03-28 07:21 | XMS ---
:1950 [facility] Providers Name Role Phone SHAINTA BRAUN Unavailable Unavailable ED STAFF PHYSICIAN, STAFF [...] is protected by Article 27-F of the [place] State Public Health law. If you continue you may haveaccess to information: Regarding HIV / AIDS; Provided by facilities licensed or operated by the [facility] Office of Mental Health; or Provided by the [facility] Office for People With Developmental Disabilities. If such information is present, then the following [facility] mandated warning applies: This information has been [...] law may result in a fine or senior living sentence or both. A general authorization for the release of medical or other information is NOT sufficient authorization for further disclosure. Encounters Encounter Providers Location Date Indications Data Source(s ) Inpatient Attender: SHANITA CARPENTER 10/06/2019 [facility] 01:30:00 PM EDT [facility] AAttender: STAFF ED - 10/20/2019 STAFF 05:15:00 PM EDT PHYSICIANAdmitter: SHANITA DIEHL AReferrer: SHANITA DIEHL A Patient discharged. Inpatient Attender: Solomon SahaHAL5 05/18/2019 04:44:00 [facility] MDAttender: STAFF ED STAFF PM EST - 05/23/2019 [facility] PHYSICIANAdmitter: Solomon 04:18:00 PM [facility] Peter MDReferrer: Solomon Green MD Patient discharged. Immunizations Vaccine Date Status Description Data Source(s) New in 2011. IIV4 05/23/2019 completed [facility] 03:31:00 PM EST Center pneumococcal 05/20/2019 completed [facility] Lu[facility]cia M edical polysaccharide PPV23 11:33:00 AM EST [facility] er Medications Medication Brand Start Product Dose Route Administrative Pharmacy [facility] Indications Reaction Description Data Name Date Form Instructions Instructions Source(s) Acetaminoph oxyCOD 1 complet [facility] nt en 325 MG / ONE-ac [facility] Oxycodone etamin Medical Hydrochlori ophen Center [...] MG / ocusat Medical sennosides, e Center SHELTER 8.6 MG sodium Oral Tablet 8.6 sennosides- [...] MG / ocusat Medical sennosides, e Center SHELTER 8.6 MG sodium Oral Tablet 8.6 sennosides- [...] Enema, , Ordered By: MDDire Peter ctron Brennanu, : 1 MDDirection each s: 1 each [...] (/EC), (/EC Ordered By: )Peter, kristina By: CARTERirection Stephe s: 1 tablet n oral daily [...] mg d By: Capsule, Stephe Ordered By: estefania Cade, CARTERirection MDDire s: 1 ctions capsule : 1 [...] (bisacodyl) 5 mg ) 5 mg tablet tablet,kti ,delay yed release ed (DR/EC), releas Ordered [...] mg d By: Capsule, Sein Ordered By: Ann, Sein Ann, MDDire MDDirection ctions s: 1 : 1 capsule capsul oral daily e oral daily Insurance Providers Payer name Policy type Policy ID Covered Covered constitution party's Policy P augustina / Coverage constitution party ID relationship to [facility]mation type [place] BLUE CROSS [id number] SP [id number] SUPP PLAN MEDICARE [id number] SP [id number] BC PPO [id number] SP [id number] BLUE CROSS [id number] SP [id number] SUPP PLAN M [id number] 01 [id number] M [id number] 01 [id number] BLUE CROSS O [id number] 01 [id number] BLUE CROSS O [id number] 01 [id number] M [id number] 01 [id number] M [id number] 01 [id number] MEDICARE [id number] SP [id number] BC PPO [id number] SP [id number] BLUE CROSS O [id number] 01 [id number] SECONDARY M [id number] 01 [id number] A MEDICARE [id number] SP [id number] A Problems, Conditions, and Diagnoses Code Display Name Description Problem Type Effective Data Dates Source(s) D64.9 Anemia, ANEMIA, Diagnosis 10/20/2019 [facility] unspecified UNSPECIFIED 05:15:00 PM Medical EDT Center E78.5 Hyperlipidemia, HYPERLIPIDEMIA, Diagnosis 10/20/2019 [facility] unspecified UNSPECIFIED 05:15:00 PM Medical EDT Center E87.6 Hypokalemia HYPOKALEMIA Diagnosis 10/20/2019 [place] [facility] 05:15:00 PM Medical EDT Center E11.65 Type 2 diabetes TYPE 2 DIABETES Diagnosis 10/20/2019 [facility] mellitus with MELLITUS WITH 05:15:00 PM Medical hyperglycemia HYPERGLYCEMIA EDT Center J96.01 Acute respiratory ACUTE RESPIRATORY Diagnosis 10/20/2019 [facility] failure with FAILURE WITH 05:15:00 PM Medical hypoxia HYPOXIA EDT Center J12.89 Other viral OTHER VIRAL Diagnosis 10/20/2019 [facility] pneumonia PNEUMONIA 05:15:00 PM Medical EDT Center U07.1 COVID-19 ACUTE COVID-19 ACUTE Diagnosis 10/20/2019 [facility] RESPIRATORY RESPIRATORY 05:15:00 PM Medical DISEASE DISEASE EDT Center Z79.84 half-way [employer] Diagnosis 10/20/2019 [facility] (current) use of [...] I16.0 Hypertensive HYPERTENSIVE Diagnosis 05/23/2019 [facility] urgency URGENCY 04:18:00 PM Medical EST Center E11.9 Type 2 diabetes TYPE 2 DIABETES Diagnosis 05/23/2019 [facility] mellitus without MELLITUS WITHOUT 04:18:00 PM M edical complications COMPLICATIONS EST Center M84.421A Pathological PATHOLOGICAL Diagnosis 05/18/2019 [facility] fracture, right FRACTURE, RIGHT 04:44:00 PM Med ical humerus, initial HUMERUS, INIT FOR EST C enter encounter for FX fracture Results ID Date Data Source [id number] 01/19/2020 08:00:00 PM EDT [facility] Name Value Range Interpretation Description Data Sup porting Code Source(s) Document(s ) SARS [facility] coronavirus 2 RNA This lab was ordered by [facility] and reported by [facility]. ID Date Data Source [id number] 01/03/2020 10:35:00 AM EDT [facility] Name Value Range Interpretation Description Data Sup porting Code Source(s) Document(s ) SARS [facility] CORONAVIRUS 2 RNA This lab was ordered by [facility] and reported by [facility]. ID Date Data Source [id number] 12/27/2019 12:00:00 AM EDT [facility] Name Value Range Interpretation Code Description Data Debra rce(s) Supporting Document(s ) 2019-nCoV [facility] RNA XXX TOM+probe- Imp This lab was ordered by [facility] and reported by [employer] ID Date Data Source [id number] 12/06/2019 12:00:00 [facility] Name Value Range Interpretation Code Description Data Debra rce(s) Supporting Document(s ) 2019-nCoV [facility] RNA XXX TOM+probe- Imp This lab was ordered by [facility] and reported by [employer] ID Date Data Source Liver 10/19/2019 06:58:00 AM EDT [facility] Profile.[id number] Name Value Range Interpretation Description Data Sup [...] s"> (3.5-5.0 G/DL)</content> ID Date Data Source HematologyRou.[id number] 10/19/2019 06:58:00 AM EDT [facility] 0400 Name Value Range Interpretation Description Data [...] > Erythrocyte 11.5-14. <content [facility] distribution 5 styleCode="Gissel Singer width [Ratio] by ">Red Cell Medical Automated [...] (0.0 KCUMM)</content > ID Date Data Source GFR(Creatinine).[id number] 10/19/2019 06:58:00 AM EDT [facility] 0-0400 Name Value Range Interpretation Code Description Data Debra rce(s) Supporting Document(s ) UNK > 60 <content [facility] styleCode="Bold"> Medical Cent er EGFR </content>70 GFR<content styleCode="Italic s"> (> 60 GFR)</content> ID Date Data Source MROUTINECCDA.[id number] 10/19/2019 06:58:00 AM EDT [facility] -0400 Name Value Range Interpretation Description Data Sup porting Code Source(s) Document(s ) Ferritin 7-264 <content [facility] [Mass/volume] in styleCode="Bold [facility] Serum or Plasma ">Ferritin Medical </content>245 Center NG/ML<content styleCode="Ital ics"> (7-264 NG/ML)</content > UNK >= 1.0 Below low normal <content [facility] styleCode="Bold Lu[facility] ">AG Ratio Medical </content>0.9 Center L<content styleCode="Ital ics"> (>= 1.0 )</content> UNK 2.3-3.5 <content [facility] styleCode="Bold Lu[place]cia ">Globulin Medical </content>3.4 Center G/DL<content styleCode="Ital ics"> (2.3-3.5 G/DL)</content> Protein 6.3-8.2 <content [facility] [Mass/volume] in styleCode="Bold [facility] Serum or Plasma ">Total Protein Medical </content>6.6 Center G/DL<content styleCode="Ital ics"> (6.3-8.2 G/DL)</content> Lactate 316-618 <content [facility] dehydrogenase styleCode="Gissel [facility] [Enzymatic ">Lactate Medical activity/volume] Dehydrogenase Center in Serum or (LDH) Plasma by </content>379 Pyruvate to IU/L<content lactate reaction styleCode="Ital ics"> (316-618 IU/L)</content> ID Date Data Source [facility].[id number] 10/19/2019 06:58:00 AM EDT [facility] Name Value Range Interpretation Description Data Sup [...] high <content [facility] normal styleCode="Bold"> [place] BUN </content>39 Medical MG/DL H<content Center styleCode="Italic [...] Data Source Liver 10/17/2019 07:30:00 AM EDT [facility] Profile.[id number] Name Value Range Interpretation Description Data Sup [...] s"> (3.5-5.0 G/DL)</content> ID Date Data Source HematologyRou.[id number] 10/17/2019 07:30:00 AM EDT [facility] 0400 Name Value Range Interpretation Description Data [...] ics"> (0 /100)</content> ID Date Data Source GFR(Creatinine).[id number] 10/17/2019 07:30:00 AM EDT [facility] 0-0400 Name Value Range Interpretation Code Description Data Debra rce(s) Supporting Document(s ) UNK > 60 <content [facility] styleCode="Bold"> Medical Cent er EGFR </content>79 GFR<content styleCode="Italic s"> (> 60 GFR)</content> ID Date Data Source Coagulation 10/17/2019 07:30:00 AM [facility] Rout.[id number] EDT Name Value Range Interpretation Code Description Data Debra rce(s) Supporting Document(s ) UNK < 500 Above upper panic <content [place] [facility] limits styleCode="Bold"> Medical Cent er D-Dimer </content><conten t styleCode="Bold"> 2112 ngFEU HH</content><cont ent styleCode="Italic s"> (< 500 ngFEU)</content> ID Date Data Source CHMROUTINECCDA.[id number] 10/17/2019 07:30:00 AM EDT [facility] -0400 Name Value Range Interpretation Description Data Sup porting Code Source(s) Document(s ) UNK >= 1.0 Below low normal <content [facility] styleCode="Layla Lu[facility] d">AG Ratio Medical </content>0.9 Center L<content styleCode="Christina lics"> (>= 1.0 )</content> UNK 2.3-3.5 Above high normal <content [facility] styleCode="Layla [facility] d">Globulin Medical </content>3.8 Center G/DL H<content styleCode="Christina lics"> (2.3-3.5 G/DL)</content > Protein 6.3-8.2 <content [facility] [Mass/volume] styleCode="Layla Castillos in Serum or d">Total Medical Plasma Protein Center </content>7.4 G/DL<content styleCode="Christina lics"> (6.3-8.2 G/DL)</content > Magnesium 1.6-2.3 <content [facility] [Mass/volume] styleCode="Layla Castillos in Serum or d">Magnesium Medical Plasma </content>2.0 Center MG/DL<content styleCode="Christina lics"> (1.6-2.3 MG/DL)</conten t> ID Date Data Source [facility].[id number] 10/17/2019 07:30:00 AM EDT [facility] Name Value Range Interpretation Description Data Sup porting Code Source(s) Document(s ) Potassium 3.5-5.3 <content [facility] [Moles/volume] in styleCode="Bold"> [facility] Serum or Plasma Potassium Medical </content>4.0 Center MEQ/L<content styleCode="Italic s"> (3.5-5.3 MEQ/L)</content> Chloride 98-107 Below low <content [facility] [Moles/volume] in normal styleCode="Bold"> [facility] Serum or Plasma Chloride Medical </content>95 Center MEQ/L L<content styleCode="Italic s"> (98-107 MEQ/L)</content> Sodium 137-145 <content [facility] [Moles/volume] in styleCode="Bold"> [facility] Serum or Plasma Sodium Medical </content>138 Center [...] Data Source Liver 10/16/2019 06:05:00 AM EDT [facility] Profile.[id number] Name Value Range Interpretation Description Data Sup [...] s"> (3.5-5.0 G/DL)</content> ID Date Data Source HematologyRou.[id number] 10/16/2019 06:05:00 AM EDT [facility] 0400 Name Value Range Interpretation Description Data Sup porting Code Source(s) Document(s ) Hematocrit 36.0-46. Below low normal <content [facility] [Volume 0 styleCode="Bold [facility] Fraction] of ">Hematocrit Medical Blood by </content>29.8 [...] ics"> (NORMAL )</content> ID Date Data Source GFR(Creatinine).[id number] 10/16/2019 06:05:00 AM EDT [facility] 0-0400 Name Value Range Interpretation Code Description Data Debra rce(s) Supporting Document(s ) UNK > 60 <content [facility] styleCode="Bold"> Medical Cent er EGFR </content>79 GFR<content styleCode="Italic s"> (> 60 GFR)</content> ID Date Data Source CHMROUTINECCDA.[id number] 10/16/2019 06:05:00 AM EDT [facility] -0400 Name Value Range Interpretation Description Data Sup porting Code Source(s) Document(s ) UNK 2.3-3.5 <content [facility] styleCode="Bold Medical ">Globulin Center </content>3.0 G/DL<content styleCode="Ital ics"> (2.3-3.5 G/DL)</content> UNK >= 1.0 <content [facility] styleCode="Bold Medical ">AG Ratio Center </content>1.0 <content styleCode="Ital ics"> (>= 1.0 )</content> Protein 6.3-8.2 Below low normal <content [facility] [Mass/volum styleCode="Bold Medical e] in Serum ">Total Protein Center or Plasma </content>6.0 G/DL L<content styleCode="Ital ics"> (6.3-8.2 G/DL)</content> ID Date Data Source [employer].[id number] 10/16/2019 06:05:00 AM EDT [facility] -0400 Name Value Range Interpretation Description Data Sup porting Code Source(s) Document(s ) Troponin < 0.034 <content [facility] I.cardiac styleCode="Bold [facility] [Mass/volume ">Troponin I Medical ] in Serum </content>< Center or Plasma 0.012 NG/ML<content styleCode="Ital ics"> (< 0.034 NG/ML)</content > ID Date Data Source BMP.[id number] 10/16/2019 06:05:00 AM EDT [facility] Name Value Range Interpretation Description Data Sup porting Code Source(s) Document(s ) Chloride 98-107 Below low <content [facility] [Moles/volume] in normal styleCode="Bold"> [facility] Serum or Plasma Chloride Medical </content>94 Center [...] s"> (3.5-5.0 G/DL)</content> ID Date Data Source HematologyRou.[id number] 10/13/2019 05:35:00 AM EDT [facility] 0400 Name Value Range Interpretation Description Data [...] Lucrecia Fraction] of ">Hematocrit Medical Blood by </content>28.1 [...] /100)</content> UNK NORMAL <content [facility] styleCode="Bold [place] ">Big Pool Cell Medical </content>SLIGH Center T <content styleCode="Ital ics"> (NORMAL )</content> UNK 0 Above high <content [facility] normal styleCode="Bold Lcurecia ">Atypical Medical Lymphocyte Center </content>4.0 % H<content [...] ics"> (2-9 %)</content> ID Date Data Source CHMROUTINECCDA.[id number] 10/12/2019 01:35:00 PM EDT [facility] -0400 Name Value Range Interpretation Description Data Sup porting Code Source(s) Document(s ) Lactate 0.7-2.0 Above upper panic <content [place] [facility] [Mass/volum limits styleCode="Bold Medical e] in Serum ">Lactic Acid Center or Plasma </content><cont ent styleCode="Bold ">3.6 MMOLL HH</content><co ntent styleCode="Ital ics"> (0.7-2.0 MMOLL)</content > ID Date Data Source HematologySpeci.[id number] 10/12/2019 01:28:00 PM EDT [facility] 0-0400 Name Value Range Interpretation Description Data Sup porting Code Source(s) Document(s ) C reactive < 3.0 Above high normal <content [facility] protein styleCode="Bold Medical [Mass/volume ">C-Reactive Center ] in Serum Protein or Plasma </content>> 15.0 MG/L H<content styleCode="Ital ics"> (< 3.0 MG/L)</content> ID Date Data Source CHMROUTINECCDA.[id number] 10/12/2019 01:28:00 PM EDT [facility] -0400 Name Value Range Interpretation Description Data [...] Data Source Liver 10/11/2019 05:45:00 AM EDT [facility] Profile.[id number] Name Value Range Interpretation Description Data Sup [...] (3.5-5.0 G/DL)</content> Alkaline 38-126 Above high <content [facility] phosphatase normal styleCode="Bold"> [place] [Enzymatic Alkaline Medical activity/volume] Phosphatase (ALP) Cente r in Serum or Plasma </content>262 IU/L H<content styleCode="Italic s"> (38-126 IU/L)</content> Bilirubin.total 0.2-1.3 <content [facility] [Mass/volume] in styleCode="Bold"> Abiel hs Serum or Plasma Bilirubin Total Medical </content>0.9 Center MG/DL<content styleCode="Italic s"> (0.2-1.3 MG/DL)</content> ID Date Data Source GFR(Creatinine).[id number] 10/11/2019 05:45:00 AM EDT [facility] 0-0400 Name Value Range Interpretation Code Description Data Debra rce(s) Supporting Document(s ) UNK > 60 <content [facility] styleCode="Bold"> Medical Cent er EGFR </content>79 GFR<content styleCode="Italic s"> (> 60 GFR)</content> ID Date Data Source [facility].[id number] 10/11/2019 05:45:00 AM EDT [facility] Name Value Range Interpretation Description Data Sup porting Code Source(s) Document(s ) Sodium 137-145 <content [facility] [Moles/volume] in styleCode="Bold"> [facility] Serum or Plasma Sodium Medical </content>137 Center MEQ/L<content styleCode="Italic s"> (137-145 MEQ/L)</content> Potassium 3.5-5.3 <content [facility] [Moles/volume] in styleCode="Bold"> [facility]iah phs Serum or Plasma Potassium Medical </content>3.7 Center MEQ/L<content styleCode="Italic s"> (3.5-5.3 MEQ/L)</content> Chloride 98-107 <content [facility] [Moles/volume] in styleCode="Bold"> [facility] Serum or Plasma Chloride Medical </content>98 Center [...] s"> (3.5-5.0 G/DL)</content> ID Date Data Source HematologyRou.[id number] 10/11/2019 05:10:00 AM EDT [facility] 0400 Name Value Range Interpretation Description Data [...] Date Data Source Coagulation 10/11/2019 05:10:00 AM [facility] ical Center Rout.[id number] EDT Name Value Range Interpretation Code Description Data Debar rce(s) Supporting Document(s ) UNK < 500 Above upper panic <content [place] [facility] limits styleCode="Bold"> Medical Cent er D-Dimer </content><conten t styleCode="Bold"> 5198 ngFEU HH</content><cont ent styleCode="Italic s"> (< 500 ngFEU)</content> ID Date Data Source HematologySpeci.[id number] 10/10/2019 05:35:00 [facility] Name Value Range Interpretation Description Data Sup porting Code Source(s) Document(s ) C reactive < 3.0 Above high normal <content [facility] protein styleCode="Bold Medical [Mass/volume ">C-Reactive Center ] in Serum Protein or Plasma </content>> 15.0 MG/L H<content styleCode="Ital ics"> (< 3.0 MG/L)</content> ID Date Data Source Liver 10/09/2019 05:10:00 AM EDT [facility] Profile.[id number] Name Value Range Interpretation Description Data Sup [...] s"> (38-126 IU/L)</content> ID Date Data Source GFR(Creatinine).[id number] 10/09/2019 05:10:00 AM EDT [facility] 0-0400 Name Value Range Interpretation Code Description Data Debra rce(s) Supporting Document(s ) UNK > 60 <content [facility] styleCode="Bold"> Medical Cent er EGFR </content>70 GFR<content styleCode="Italic s"> (> 60 GFR)</content> ID Date Data Source BMP.[id number] 10/09/2019 05:10:00 AM EDT [facility] Name Value Range Interpretation Description Data Sup [...] G/DL)</content> Alkaline 38-126 <content [facility] phosphatase styleCode="Bold"> [facility] [Enzymatic Alkaline Medical activity/volume] Phosphatase (ALP) Cente r in Serum or Plasma </content>99 IU/L<content styleCode="Italic s"> (38-126 IU/L)</content> ID Date Data Source HematologySpeci.[id number] 10/08/2019 04:14:00 AM EDT [facility] 0-0400 Name Value Range Interpretation Description Data Sup porting Code Source(s) Document(s ) C reactive < 3.0 Above high normal <content [facility] protein styleCode="Bold Medical [Mass/volume ">C-Reactive Center ] in Serum Protein or Plasma </content>> 15.0 MG/L H<content styleCode="Ital ics"> (< 3.0 MG/L)</content> ID Date Data Source [employer]Markers.[id number] 10/08/2019 04:14:00 AM EDT [facility] -0400 Name Value Range Interpretation Description Data Sup porting Code Source(s) Document(s ) Troponin < 0.034 Above upper panic <content [facility] I.cardiac limits styleCode="Bold [place] [Mass/volume ">Troponin I Medical ] in Serum </content><cont Center or Plasma ent styleCode="Bold ">0.037 NG/ML HH</content><co ntent styleCode="Ital ics"> (< 0.034 NG/ML)</content > ID Date Data Source HematologyRou.[id number] 10/07/2019 04:10:00 AM EDT [facility] 0400 Name Value Range Interpretation Description Data [...] (0-0.1 KCUMM)</content > ID Date Data Source GFR(Creatinine).[id number] 10/07/2019 04:10:00 AM EDT [facility] 0-0400 Name Value Range Interpretation Code Description Data Debra rce(s) Supporting Document(s ) UNK > 60 <content [facility] styleCode="Bold"> Medical Cent er EGFR </content>79 GFR<content styleCode="Italic s"> (> 60 GFR)</content> ID Date Data Source BMP.[id number] 10/07/2019 04:10:00 AM EDT [facility] Name Value Range Interpretation Description Data Sup porting Code Source(s) Document(s ) Sodium 137-145 Below low normal <content [facility] [Moles/volume] styleCode="Layla Lucrceia in Serum or d">Sodium Medical Plasma </content>135 [...] GFR)</content> Calcium 8.4-10.2 <content [facility] [Mass/volume] styleCode="Layla Lu[place]cia in Serum or d">Calcium Medical Plasma </content>9.5 Center MG/DL<content styleCode="Christina lics"> (8.4-10.2 MG/DL)</conten t> ID Date Data Source MROUTINECCDA.[id number] 10/06/2019 07:30:00 PM EDT [facility] -0400 Name Value Range Interpretation Code Description Data Debra rce(s) Supporting Document(s ) UNK 0.7-2.0 <content [facility] styleCode="Bold" Medical Cente r >Lactic Acid 4hr </content>0.9 MMOLL<content styleCode="Itali cs"> (0.7-2.0 MMOLL)</content> ID Date Data Source Microbiology.[id number] 10/06/2019 04:20:00 PM EDT [facility] 400 Name Value Range Interpretation Code Description Data Debra rce(s) Supporting Document(s ) UNK <item><content [facility] styleCode="Bold"> Medical Cent er Culture Report </content>
<t able><tbody><tr>< td>Specimen Number:</td><td>[id number]</td></tr ><tr><td>Sample Collection Date/Time: </td><td>10/06/2019 4:20 PM</td></tr><tr>< td>Specimen Source:</td><td>B LOOD</td></tr><tr ><td>Blood Culture:</td><td> Collection Plate Date: 10/06/2019 16:21 </td></tr><tr><td >Culture Status:</td><td>F inal </td></tr><tr><td >Culture Report:</td><td>N O GROWTH 5 DAYS </td></tr></tbody ></table></item> UNK <item><[facility] Medical [facility] er Culture Status </content>
<t able><tbody><tr>< td>Specimen Number:</td><td>[id number]</td></tr ><tr><td>Sample Collection Date/Time: </td><td>10/06/2019 4:20 PM</td></tr><tr>< td>Specimen Source:</td><td>B LOOD</td></tr><tr ><td>Blood Culture:</td><td> Collection Plate Date: 10/06/2019 16:21 </td></tr><tr><td >Culture Report:</td><td>N O GROWTH 5 DAYS </td></tr><tr><td >Culture Status:</td><td>F inal </td></tr></tbody ></table></item> ID Date Data Source Microbiology.[id number] 10/06/2019 04:00:00 PM EDT [facility] 400 Name Value Range Interpretation Code Description Data Debra rce(s) Supporting Document(s ) UNK <item><content [facility] styleCode="Bold"> Medical [facility] er Culture Status </content>
<t able><tbody><tr>< td>Specimen Number:</td><td>[id number]</td></tr ><tr><td>Sample Collection Date/Time: </td><td>10/06/2019 4:00 PM</td></tr><tr>< td>Specimen Source:</td><td>B LOOD</td></tr><tr ><td>Culture Report:</td><td>N O GROWTH 5 DAYS </td></tr><tr><td >Culture Status:</td><td>F inal </td></tr><tr><td >Blood Culture:</td><td> Collection Plate Date: 10/06/2019 16:12 </td></tr></tbody ></table></item> UNK <item><content [facility] [facility] styleCode="Bold"> Medical Cent er Culture Report </content>
<t able><tbody><tr>< td>Specimen Number:</td><td>[id number]</td></tr ><tr><td>Sample Collection Date/Time: </td><td>10/06/2019 4:00 PM</td></tr><tr>< td>Specimen Source:</td><td>B LOOD</td></tr><tr ><td>Blood Culture:</td><td> Collection Plate Date: 10/06/2019 16:12 </td></tr><tr><td >Culture Status:</td><td>F inal </td></tr><tr><td >Culture Report:</td><td>N O GROWTH 5 DAYS </td></tr></tbody ></table></item> ID Date Data Source HematologySpeci.[id number] 10/06/2019 04:00:00 PM EDT [facility] 0-0400 Name Value Range Interpretation Description Data Sup porting Code Source(s) Document(s ) C reactive < 3.0 Above high normal <content [facility] hs protein styleCode="Bold Medical [Mass/volume ">C-Reactive Center ] in Serum Protein or Plasma </content>> 15.0 MG/L H<content styleCode="Ital ics"> (< 3.0 MG/L)</content> ID Date Data Source Coagulation 10/06/2019 04:00:00 PM [facility] Rout.[id number] EDT Name Value Range Interpretation Description Data Sup porting Code Source(s) Document(s ) UNK 9.0-13.0 <content [facility] styleCode="Layla Lucrecia d">Protime Medical </content>12.6 Center SEC<content styleCode="Christina lics"> (9.0-13.0 SEC)</content> INR in 0.80-1.2 <content Saint Platelet poor 0 styleCode="[facility] plasma by d">INR Medical Coagulation </content>1.14 Center assay #<content styleCode="Christina lics"> (0.80-1.20 #)</content> ID Date Data Source CardiacMarkers.[id number] 10/06/2019 04:00:00 PM EDT [facility] -0400 Name Value Range Interpretation Description Data Sup porting Code Source(s) Document(s ) Troponin < 0.034 <content [facility] I.cardiac styleCode="Bold Lucrecia [Mass/volume ">Troponin I Medical ] in Serum </content>0.027 Center or Plasma NG/ML<content styleCode="Ital ics"> (< 0.034 NG/ML)</content > ID Date Data Source Liver 10/06/2019 04:00:00 PM EDT [facility] Profile.[id number] Name Value Range Interpretation Description Data Sup [...] s"> (3.5-5.0 G/DL)</content> ID Date Data Source HematologyRou.[id number] 10/06/2019 04:00:00 PM EDT Seamus nt [facility] 0400 Name Value Range Interpretation Description Data [...] > Basophils 0.0-1.0 <content Saint [#/volume] in styleCode="[facility] Blood by ">Basophil Medical Automated count </content>0.1 [...] ics"> (0 /100)</content> ID Date Data Source GFR(Creatinine).[id number] 10/06/2019 04:00:00 PM EDT [facility] 0-0400 Name Value Range Interpretation Code Description Data Debra rce(s) Supporting Document(s ) UNK > 60 <content [facility] styleCode="Bold"> Medical Cent er EGFR </content>79 GFR<content styleCode="Italic s"> (> 60 GFR)</content> ID Date Data Source [id number] 10/06/2019 04:00:00 PM EDT [facility] -0400 Name Value Range Interpretation Description Data [...] ics"> (23-300 IU/L)</content> ID Date Data Source [facility].[id number] 10/06/2019 04:00:00 PM EDT [facility] Name Value Range Interpretation Description Data Sup [...] s"> (3.5-5.0 G/DL)</content> ID Date Data Source HematologyRou.[id number] 05/23/2019 06:01:00 AM JOSEPH Seamus nt [facility] 0500 Name Value Range Interpretation Description Data [...] (0.0 KCUMM)</content > ID Date Data Source GFR(Creatinine).[id number] 05/23/2019 06:01:00 AM [facility] 0-0500 Name Value Range Interpretation Code Description Data Debra rce(s) Supporting Document(s ) UNK > 60 <content [facility] styleCode="Bold"> Medical Cent er EGFR </content>106 GFR<content styleCode="Italic s"> (> 60 GFR)</content> ID Date Data Source XIOMARAMRDORYS.[id number] 05/23/2019 06:01:00 AM [facility] -0500 Name Value Range Interpretation Description Data Sup porting Code Source(s) Document(s ) Magnesium 1.6-2.3 <content Saint [Mass/volume] styleCode="Layla Lucrecia in Serum or d">Magnesium Medical Plasma </content>2.0 Center MG/DL<content styleCode="Christina lics"> (1.6-2.3 MG/DL)</conten t> ID Date Data Source [facility].[id number] 05/23/2019 06:01:00 AM [facility] Name Value Range Interpretation Description [...] (> 60 GFR)</content> ID Date Data Source HematologyRou.[id number] 05/22/2019 06:12:[address] [facility] 0500 Name Value Range Interpretation Description Data [...] (130-400 KCUMM)</content > ID Date Data Source GFR(Creatinine).[id number] 05/22/2019 06:12:[address] [facility] 0-0500 Name Value Range Interpretation Code Description Data Debra rce(s) Supporting Document(s ) UNK > 60 <content [facility] styleCode="Bold"> Medical Cent er EGFR </content>106 GFR<content styleCode="Italic s"> (> 60 GFR)</content> ID Date Data Source XIOMARAMRDORYS.[id number] 05/22/2019 06:12:[address] [facility] -0500 Name Value Range Interpretation Description Data Sup porting Code Source(s) Document(s ) Magnesium 1.6-2.3 <content [facility] [Mass/volume] styleCode="Layla Lucrecia in Serum or d">Magnesium Medical Plasma </content>2.1 Center MG/DL<content styleCode="Christina lics"> (1.6-2.3 MG/DL)</conten t> ID Date Data Source GREGG.[id number] 05/22/2019 06:12:00 AM EST [facility] Name Value Range Interpretation Description Data Sup [...] Castillos in Serum or d">Glucose Medical Plasma </content>176 [...] Data Source Liver 05/21/2019 07:05:00 AM EST [facility] Profile.[id number] Name Value Range Interpretation Description Data Sup porting Code Source(s) Document(s ) Alanine 7-30 <content [facility] aminotransferase styleCode="Bold"> Abiel hs [Enzymatic Alanine Medical activity/volume] Aminotransferase Center in Serum or Plasma (ALT) </content>18 IU/L<content styleCode="Italic s"> (7-30 IU/L)</content> Aspartate 14-36 <content [facility] aminotransferase styleCode="Bold"> Abiel hs [Enzymatic Aspartate Medical [...] s"> (0.2-1.3 MG/DL)</content> ID Date Data Source HematologyRou.[id number] 05/21/2019 07:05:00 AM JOSEPH Se[facility] 0500 Name Value Range Interpretation Description Data Sup porting Code Source(s) Document(s ) Hemoglobin 12.3-16. Below low normal <content Saint [Mass/volume] in 0 styleCode="Bold Lucrecia Blood ">Hemoglobin Medical </content>11.2 Center G/DL L<content styleCode="Ital ics"> (12.3-16.0 G/DL)</content> Erythrocytes 4.0-5.1 Below low normal <content Saint [#/volume] in styleCode="Bold [facility] Blood by ">Red Blood Medical Automated count Cell Count Center </content>3.88 MCUMM L<content styleCode="Ital ics"> (4.0-5.1 MCUMM)</content > Leukocytes 4.4-11.0 <content Saint [#/volume] in styleCode="Bold [facility] Blood by ">White Blood Medical Automated count [...] Basophils 0.0-1.0 <content Saint [#/volume] in styleCode="Bold [facility] Blood by ">Basophil Medical Automated count </content>0.4 [...] (0.0 KCUMM)</content > ID Date Data Source GFR(Creatinine).[id number] 05/21/2019 07:05:00 AM EST [facility] 0-0500 Name Value Range Interpretation Code Description Data Debra rce(s) Supporting Document(s ) UNK > 60 <content [facility] styleCode="Bold"> Medical Cent er EGFR </content>106 GFR<content styleCode="Italic s"> (> 60 GFR)</content> ID Date Data Source [facility].[id number] 05/21/2019 07:05:00 AM JOSEPH cee [facility] -0500 Name Value Range Interpretation Description Data Sup porting Code Source(s) Document(s ) UNK >= 1.0 <content Saint styleCode="Bold Lucrecia ">AG Ratio Medical </content>1.2 Center <content styleCode="Ital ics"> (>= 1.0 )</content> UNK 2.3-3.5 <content Saint styleCode="Bold Lucrecia ">Globulin Medical </content>3.1 Center G/DL<content styleCode="Ital ics"> (2.3-3.5 G/DL)</content> Lactate 316-618 <content Saint dehydrogenase styleCode="Bold Lucrecia [Enzymatic ">Lactate Medical activity/volume] Dehydrogenase Center in Serum or (LDH) Plasma by </content>323 Pyruvate to IU/L<content lactate reaction styleCode="Ital ics"> (316-618 IU/L)</content> Protein 6.3-8.2 <content Saint [Mass/volume] in styleCode="Bold Lucrecia Serum or Plasma ">Total Protein Medical </content>6.9 Center G/DL<content styleCode="Ital ics"> (6.3-8.2 G/DL)</content> ID Date Data Source [facility].[id number] 05/21/2019 07:05:00 AM JOSEPH Rose [facility] Center Name Value Range Interpretation Description Data Sup porting Code Source(s) Document(s ) Sodium 137-145 <content Saint [Moles/volume] in styleCode="Bold"> Isiah phs Serum or Plasma Sodium Medical </content>141 Center MEQ/L<content styleCode="Italic s"> (137-145 MEQ/L)</content> Chloride 98-107 <content Saint [Moles/volume] in styleCode="Bold"> Isiah phs Serum or Plasma Chloride Medical </content>103 Center MEQ/L<content styleCode="Italic s"> (98-107 MEQ/L)</content> UNK 7-17 <content Saint styleCode="Bold"> Lucrecia BUN </content>17 Medical MG/DL<content Center styleCode="Italic s"> [...] Data Source Liver 05/20/2019 05:56:00 AM EST [facility] Profile.[id number] Name Value Range Interpretation Description Data Sup [...] s"> (0.2-1.3 MG/DL)</content> ID Date Data Source HematologyRou.[id number] 05/20/2019 05:56:[address] [facility] 0500 Name Value Range Interpretation Description Data [...] low normal <content Saint [Volume 0 styleCode="Bold [facility] Fraction] of ">Hematocrit Medical Blood by </content>32.4 [...] Basophils 0.0-1.0 <content Saint [#/volume] in styleCode="Bold Lucercia Blood by ">Basophil Medical Automated count </content>0.4 [...] (0-0.1 KCUMM)</content > ID Date Data Source GFR(Creatinine).[id number] 05/20/2019 05:56:00 AM [facility] 0-0500 Name Value Range Interpretation Code Description Data Debra rce(s) Supporting Document(s ) UNK > 60 <content [facility] styleCode="Bold"> Medical Cent er EGFR </content>106 GFR<content styleCode="Italic s"> (> 60 GFR)</content> ID Date Data Source CHMROUTINECCDA.[id number] 05/20/2019 05:56:00 AM EST [facility] -0500 Name Value Range Interpretation Description [...] (1.6-2.3 MG/DL)</conten t> ID Date Data Source [facility].[id number] 05/20/2019 05:56:00 AM EST [facility] Name Value Range Interpretation Description Data Sup porting Code Source(s) Document(s ) Sodium 137-145 <content Saint [Moles/volume] in styleCode="Bold"> [facility] Serum or Plasma Sodium Medical </content>140 Center MEQ/L<content styleCode="Italic s"> (137-145 MEQ/L)</content> Potassium 3.5-5.3 <content [facility] [Moles/volume] in styleCode="Bold"> [facility] Serum or Plasma Potassium Medical </content>3.5 Center [...] s"> (3.5-5.0 G/DL)</content> ID Date Data Source [facility].[id number] 05/19/2019 12:17:00 PM EST [facility] Name Value Range Interpretation Description Data Sup porting Code Source(s) Document(s ) Potassium 3.5-5.3 <content Saint [Moles/volume styleCode="Layla Lucrecia ] in Serum or d">Potassium Medical Plasma </content>3.6 Center MEQ/L<content styleCode="Christina lics"> (3.5-5.3 MEQ/L)</conten t> ID Date Data Source Urinalysis.[id number] 05/19/2019 08:33:00 AM EST Seamus nt [facility] 0 Name Value Range Interpretation Description Data Sup porting Code Source(s) Document(s ) UNK CLEAR <content Saint styleCode="Layla Lucrecia d">Urine Medical Clarity Center </content>MAI R <content styleCode="Christina lics"> (CLEAR )</content> Color of Urine YELLOW <content Saint styleCode="Layla Castillos d">Color, Medical Urine Center </content>YELL OW <content styleCode="Christina lics"> (YELLOW )</content> UNK NEGATIVE <content Saint styleCode="Layla Castillos d">Urine Medical Bilirubin Center </content>NEGA TIVE <content styleCode="Christina lics"> (NEGATIVE )</content> Ketones NEGATIVE <content Saint [Mass/volume] styleCode="Layla Singer in Urine by d">Urine Medical Test strip Ketone Center </content>NEGA TIVE MG/DL<content styleCode="Christina lics"> (NEGATIVE MG/DL)</conten t> Glucose NEGATIVE <content Saint [Mass/volume] styleCode="Layla Singer in Urine by d">Urine Medical Test strip Glucose Center </content>NEGA TIVE MG/DL<content styleCode="Christina lics"> (NEGATIVE MG/DL)</conten t> Specific 1.015-1.02 <content Saint gravity of 5 styleCode="Layla Singer Urine by Test d">Urine Medical strip Specific Center [place] </content>1.02 0 <content styleCode="Christina lics"> (1.015-1.025 )</content> Protein NEGATIVE <content Saint [Mass/volume] styleCode="Layla Singer in Urine by d">Urine Medical Test strip Protein Center </content>100 MG/DL<content styleCode="Christina lics"> (NEGATIVE MG/DL)</conten t> Hemoglobin NEGATIVE <content Saint [Presence] in styleCode="Layla Singer Urine by Test d">Urine Blood Medical strip </content>TRAC Center E <content styleCode="Christina lics"> (NEGATIVE )</content> pH of Urine by 4.5-8.0 <content Saint Test strip styleCode="Layla Castillos d">Urine pH Medical </content>6.5 Center <content styleCode="Christina [...] lics"> (0-3 HPF)</content> ID Date Data Source Hormones.[id number] 05/19/2019 05:40:00 AM JOSEPH [facility] Name Value Range Interpretation Description Data Sup porting Code Source(s) Document(s ) Thyrotropin 0.465-4. <content Saint [Units/volume] 68 styleCode="Layla Lucrecia in Serum or d">Thyroid Medical Plasma by Stimulating Center Detection Hormone limit <= 0.05 </content>0.49 mIU/L 2 MIU/L<content styleCode="Christina lics"> (0.465-4.68 MIU/L)</conten t> ID Date Data Source HematologyRou.[id number] 05/19/2019 05:40:00 AM EST Seamus nt [facility] 0500 Name Value Range Interpretation Description Data [...] (0.0 KCUMM)</content > ID Date Data Source GFR(Creatinine).[id number] 05/19/2019 05:40:00 AM [employer] [place] [facility] 0-0500 Name Value Range Interpretation Code Description Data Debra rce(s) Supporting Document(s ) UNK > 60 <content [facility] styleCode="Bold"> Medical Cent er EGFR </content>127 GFR<content styleCode="Italic s"> (> 60 GFR)</content> ID Date Data Source CHMROUTINECCDA.[id number] 05/19/2019 05:40:00 AM EST [facility] -0500 Name Value Range Interpretation Description Data Sup porting Code Source(s) Document(s ) Ferritin 11-264 <content Saint [Mass/volume] styleCode="Layla Castillos in Serum or d">Ferritin Medical Plasma </content>37.1 Center NG/ML<content styleCode="Christina lics"> (11-264 NG/ML)</conten t> UNK 265-497 <content Saint styleCode="Layla Castillos d">TIBC Medical </content>281 Center UG/DL<content styleCode="Christina lics"> (265-497 UG/DL)</conten t> Iron 37-170 <content Saint [Mass/volume] styleCode="Layla Lucrecia in Serum or d">Iron Medical Plasma </content>49 Center UG/DL<content styleCode="Christina lics"> (37-170 UG/DL)</conten t> Magnesium 1.6-2.3 <content Saint [Mass/volume] styleCode="Layla Lucrecia in Serum or d">Magnesium Medical Plasma </content>1.6 Center MG/DL<content styleCode="Christina lics"> (1.6-2.3 MG/DL)</conten t> ID Date Data Source [facility].[id number] 05/19/2019 05:40:00 AM EST [facility] Name Value Range Interpretation Description Data Sup [...] MEQ/L)</conten t> UNK 7-17 <content Saint styleCode="Layla Lucrecia d">BUN Medical </content>15 Center MG/DL<content styleCode="Christina lics"> [...] Data Source Liver 05/18/2019 08:00:00 PM EST [facility] Profile.[id number] Name Value Range Interpretation Description Data Sup [...] Date Data Source Coagulation 05/18/2019 08:00:00 PM [facility] Rout.[id number] EST Name Value Range Interpretation Description Data [...] cs"> (0.80-1.20 #)</content> ID Date Data Source CardiacMarkers.[id number] 05/18/2019 08:00:00 PM EST [facility] -0500 Name Value Range Interpretation Description Data Sup porting Code Source(s) Document(s ) Creatine 30-135 <content Saint Lucrecia kinase styleCode="Bold Medical [Enzymatic ">CK Center activity/vol </content>59 ume] in IU/L<content Serum or styleCode="Ital Plasma ics"> (30-135 IU/L)</content> ID Date Data Source HematologyRou.[id number] 05/18/2019 08:00:00 PM EST [facility] 0500 Name Value Range Interpretation Description Data [...] Basophils 0.0-1.0 <content Saint [#/volume] in styleCode="Bold [facility] Blood by ">Basophil Medical Automated count </content>0.2 Center %<content styleCode="Ital ics"> (0.0-1.0 %)</content> UNK 0.0-0.6 <content Saint styleCode="Bold Lucreica ">Eosinophil Medical Count Center </content>0.01 KCUMM<content styleCode="Ital [...] (0.0 KCUMM)</content > ID Date Data Source GFR(Creatinine).[id number] 05/18/2019 08:00:00 PM EST [facility] 0-0500 Name Value Range Interpretation Code Description Data Debra rce(s) Supporting Document(s ) UNK > 60 <content [facility] styleCode="Bold"> Medical Cent er EGFR </content>127 GFR<content styleCode="Italic s"> (> 60 GFR)</content> ID Date Data Source [id number] 05/18/2019 08:00:00 PM JOSEPH [facility] -0500 Name Value Range Interpretation Description Data Sup porting Code Source(s) Document(s ) Protein 6.3-8.2 <content Saint Lucrecia [Mass/volum styleCode="Bold Medical e] in Serum ">Total Protein Center or Plasma </content>6.8 G/DL<content styleCode="Ital ics"> (6.3-8.2 G/DL)</content> UNK >= 1.0 <content [facility] styleCode="Bold Medical ">AG Ratio Center </content>1.3 <content styleCode="Ital ics"> (>= 1.0 )</content> UNK 2.3-3.5 <content [facility] styleCode="Bold Medical ">Globulin Center </content>2.9 G/DL<content styleCode="Ital ics"> (2.3-3.5 G/DL)</content> ID Date Data Source [facility].[id number] 05/18/2019 08:00:00 PM EST [facility] Name Value Range Interpretation Description Data Sup porting Code Source(s) Document(s ) Potassium 3.5-5.3 Below low <content Saint [Moles/volume] in normal styleCode="Bold"> [facility] Serum or Plasma Potassium Medical </content>3.2 Center [...] 05/18/2019 Denies Ever completed Denies Ever Smoked [place] 04:52:00 PM EST Smoked Medical C enter Vital Signs ID Date Data Source UNK Name Value Range Interpretation Code Description Data Source(s) Body temperature 36.525442 36.118675 [facility] Respiratory rate 18 /min 18 /min [facility] Heart rate 64 /min 64 /min [facility] Diastolic blood 64 mm[Hg] 64 mm[Hg] [facility] Medical [place] Systolic blood 157 mm[Hg] 157 mm[Hg] [facility] Body temperature 36.166974 36.524117 [facility] Respiratory rate 18 /min 18 /min [facility] Heart rate 79 /min 79 /min [facility] Diastolic blood 81 mm[Hg] 81 mm[Hg] [facility] Medical [place] Systolic blood 129 mm[Hg] 129 mm[Hg] [facility] Body temperature 36.279780 36.420689 [facility] Respiratory rate 18 /min 18 /min [facility] Heart rate 75 /min 75 /min [facility] Diastolic blood 64 mm[Hg] 64 mm[Hg] [facility] Medical Center Systolic blood 134 mm[Hg] 134 mm[Hg] [facility] Oxygen saturation 96 % 96 % [facility] in [facility] blood [facility] Center by Pulse oximetry Body temperature 36.426271 36.393122 [facility] Respiratory rate 19 /min 19 /min [facility] Heart rate 85 /min 85 /min [facility] Diastolic blood 89 mm[Hg] 89 mm[Hg] [facility] Medical Center Systolic blood 198 mm[Hg] 198 mm[Hg] [facility] Medical [place] Body temperature 36.488054 36.727656 [facility] Respiratory rate 18 /min 18 /min [facility] Heart rate 73 /min 73 /min [facility] Diastolic blood 76 mm[Hg] 76 mm[Hg] [facility] Medical Center Systolic blood 130 mm[Hg] 130 mm[Hg] [facility] Medical [place] Oxygen saturation 97 % 97 % [facility] Arterial blood [facility] Center by Pulse oximetry Oxygen saturation 98 % 98 % [facility] in Arterial blood Medical Center by Pulse oximetry Oxygen saturation 94 % 94 % [facility] in Arterial blood Medical Center by Pulse oximetry Body weight 65.422395 kg 65.631659 kg [facility] Measured Medical Center Body height 162.484970 162.424849 cm [facility] Medical Center Body mass index 24.92 kg/m2 24.92 kg/m2 [facility] (BMI) [Ratio] Medical [address] Oxygen saturation 97 % 97 % [facility] blood [facility] Center by Pulse oximetry Body weight 66.695208 kg 66.480917 kg [facility] Measured Medical Center Body temperature 37.322546 37.807274 [facility] Respiratory rate 19 /min 19 /min [facility] Oxygen saturation 94 % 94 % [facility] by Pulse oximetry Heart rate 97 /min 97 /min [facility] Diastolic blood 78 mm[Hg] 78 mm[Hg] [facility] Systolic blood 157 mm[Hg] 157 mm[Hg] [facility] Body temperature 37.879668 37.367533 [facility] Respiratory rate 20 /min 20 /min [facility] Oxygen saturation 95 % 95 % [facility] blood [facility] by Pulse oximetry Heart rate 113 /min 113 /min [facility] Diastolic blood 80 mm[Hg] 80 mm[Hg] [facility] Center Systolic blood 172 mm[Hg] 172 mm[Hg] [facility] Body temperature 37.102045 37.506193 [facility] Respiratory rate 20 /min 20 /min [facility] Oxygen saturation 93 % 93 % [facility] blood [facility] by Pulse oximetry Heart rate 105 /min 105 /min [facility] Diastolic blood 80 mm[Hg] 80 mm[Hg] [facility] Systolic blood 165 mm[Hg] 165 mm[Hg] [facility] Body temperature 36.552774 36.797655 [facility] Respiratory rate 17 /min 17 /min [facility] Oxygen saturation 98 % 98 % [facility] in Arterial blood Medical Center by Pulse oximetry Heart rate 99 /min 99 /min [facility] Diastolic blood 76 mm[Hg] 76 mm[Hg] [facility] Medical Center Systolic blood 159 mm[Hg] 159 mm[Hg] [facility] Body temperature 37.392690 37.600437 [facility] Respiratory rate 24 /min 24 /min [facility] Oxygen saturation 93 % 93 % [facility] in Arterial blood [facility] Center by Pulse oximetry Heart rate 113 /min 113 /min [facility] Diastolic blood 86 mm[Hg] 86 mm[Hg] [facility] Center Systolic blood 156 mm[Hg] 156 mm[Hg] [facility] Body weight 69.686276 kg 69.013558 kg [facility] Measured Medical Center Body height 162.542651 162.171025 cm [facility] Body mass index 26.2 kg/m2 26.2 kg/m2 [facility] (BMI) [Ratio] Medical [address] Body temperature 36.505566 36.442036 [facility] Respiratory rate 18 /min 18 /min [facility] Heart rate 67 /min 67 /min [facility] Diastolic blood 74 mm[Hg] 74 mm[Hg] [facility] Systolic blood 158 mm[Hg] 158 mm[Hg] [facility] Body weight 69.208290 kg 69.715481 kg [facility] Measured Medical Center Body height 162.758973 162.111458 cm [facility] Body mass index 26.30 kg/m2 26.30 kg/m2 [facility] (BMI) [Ratio] [facility] [address] Body temperature 36.777453 36.322621 [facility] Respiratory rate 18 /min 18 /min [facility] Oxygen saturation 97 % 97 % [facility] blood [facility] by Pulse oximetry Heart rate 67 /min 67 /min [facility] Diastolic blood 81 mm[Hg] 81 mm[Hg] [facility] Systolic blood 152 mm[Hg] 152 mm[Hg] [facility] [place] Body temperature 36.404956 36.388773 [facility] Respiratory rate 18 /min 18 /min [facility] Heart rate 76 /min 76 /min [facility] Diastolic blood 70 mm[Hg] 70 mm[Hg] [facility] Systolic blood 145 mm[Hg] 145 mm[Hg] [facility] Heart rate 64 /min 64 /min [facility] Diastolic blood 80 mm[Hg] 80 mm[Hg] [facility] Systolic blood 142 mm[Hg] 142 mm[Hg] [facility] Body temperature 36.482928 36.058908 [facility] Respiratory rate 20 /min 20 /min [facility] Heart rate 65 /min 65 /min [facility] Diastolic blood 62 mm[Hg] 62 mm[Hg] [facility] Systolic blood 160 mm[Hg] 160 mm[Hg] [facility] Medical [place] Body weight 69.725983 kg 69.547777 kg [facility] Body height 162.971103 162.771763 cm [facility] Medical [place] Body mass index 26.30 kg/m2 26.30 kg/m2 [facility] (BMI) [Ratio] Medical [facility] ter Body temperature 37.970168 37.399045 [facility] Respiratory rate 20 /min 20 /min [facility] Body temperature 36.177230 36.226678 [facility] Respiratory rate 18 /min 18 /min [facility] Heart rate 69 /min 69 /min [facility] Diastolic blood 70 mm[Hg] 70 mm[Hg] [facility] Systolic blood 178 mm[Hg] 178 mm[Hg] [facility] Body temperature 36.714961 36.759814 [facility] Respiratory rate 16 /min 16 /min [facility] Heart rate 74 /min 74 /min [facility] Diastolic blood 86 mm[Hg] 86 mm[Hg] [facility] Systolic blood 190 mm[Hg] 190 mm[Hg] [facility] Body temperature 36.641361 36.080797 [facility] Respiratory rate 20 /min 20 /min [facility] Heart rate 68 /min 68 /min [facility] Diastolic blood 86 mm[Hg] 86 mm[Hg] [facility] Systolic blood 179 mm[Hg] 179 mm[Hg] [facility] Body weight 69.347660 kg 69.039115 kg [facility] Oxygen saturation 95 % 95 % [facility] blood [facility] Center by Pulse oximetry Body height 162.073658 162.071614 cm [facility] Body mass index 26.30 kg/m2 26.30 kg/m2 [facility] (BMI) [Ratio] [facility] [address] Body temperature 36.688578 36.360893 [facility] Respiratory rate 18 /min 18 /min [facility] Heart rate 69 /min 69 /min [facility] Diastolic blood 87 mm[Hg] 87 mm[Hg] [facility] Systolic blood 179 mm[Hg] 179 mm[Hg] [facility] Oxygen saturation 97 % 97 % [facility] by Pulse oximetry Body temperature 37.444914 37.061349 [facility] Respiratory rate 18 /min 18 /min [facility] Heart rate 76 /min 76 /min [facility] Diastolic blood 83 mm[Hg] 83 mm[Hg] [facility] Systolic blood 176 mm[Hg] 176 mm[Hg] [facility] Oxygen saturation 97 % 97 % [facility] blood [facility] Center by Pulse oximetry Body weight 65.444584 kg 65.732142 kg [facility] Oxygen saturation 97 % 97 % [facility] blood [facility] Center by Pulse oximetry Body height 162.981355 162.191419 cm [facility] Body mass index 24.5 kg/m2 24.5 kg/m2 [facility] (BMI) [Ratio] Medical [address] Patient Treatment Plan of Care Planned Activity Planned Date Details Description Data Source (s) Metformin hydrochloride 1000 [facility] Medical MG / sitagliptin 50 MG Oral Center Tablet [Janumet] atorvastatin 40 MG Oral [facility] Tablet Center Amlodipine 5 MG / Benazepril [facility] Medical hydrochloride [address] Capsule olopatadine 1 MG/ML [facility] Ophthalmic Solution [place] 24 HR metoprolol succinate S [facility] 50 MG Extended Release Oral Center Tablet Hydralazine Hydrochloride 50 [facility] MG Oral Tablet Center glimepiride 4 MG Oral Tablet [facility] Bisacodyl 5 MG Delayed [facility] Medical Release Oral Tablet Center Aspirin 81 MG Delayed [facility] Medical Release Oral Tablet Center Acetaminophen 325 MG / [facility] Oxycodone Hydrochloride 5 MG Center Oral Tablet POLYETHYLENE GLYCOL 3350 142 [facility] Medical MG/ML Oral Solution Center Docusate Sodium 50 MG / [facility] sennoside, SHELTER 8.6 MG Oral Center Tablet Sodium Phosphate, Dibasic [facility] 59.3 MG/ML / Sodium Center Phosphate, Monobasic 161 MG/ML [facility] Acetaminophen 325 MG / [facility] Oxycodone Hydrochloride 5 MG Center Oral Tablet Docusate Sodium 50 MG / [facility] sennosides, SHELTER 8.6 MG Oral Center Tablet Sodium Phosphate, Dibasic [facility] 59.3 MG/ML / Sodium Center Phosphate, Monobasic 161 MG/ML En[facility] Metformin hydrochloride 1000 [facility] Medical MG / sitagliptin 50 MG Oral Center Tablet [Janumet] POLYETHYLENE GLYCOL 3350 142 [facility] Medical MG/ML Oral Solution Center olopatadine 1 MG/ML [facility] Ophthalmic Solution [place] 24 HR metoprolol succinate S [facility] 50 MG Extended Release Oral Center Tablet Hydralazine Hydrochloride 50 [facility] MG Oral Tablet Center glimepiride 4 MG Oral Tablet [facility] Bisacodyl 5 MG Delayed [facility] Medical Release Oral Tablet Center atorvastatin 40 MG Oral [facility] Tablet Center Aspirin 81 MG Delayed [facility] Medical Release Oral Tablet Center Amlodipine 5 MG / Benazepril [facility] Medical hydrochloride [address] Capsule
[2020-03-28] MEDS ORDERED: DEXAMETHASONE 4 MG TABLET (FP) PO ONE (10:00)
[2020-03-28] MEDS ORDERED: BORTEZOMIB (VELCADE) 2.5 MG/ML SUB-Q INJECTION SQ ONE (10:00)
[2020-03-28] MEDS ORDERED: SODIUM CHLORIDE 250 ML IV ONE (10:00)
[2020-03-28 14:45] LABS: BASO % 0.5 % (0-2.0); EOS % 1.7 % (0-4.5); HEMATOCRIT 25.2 % (32.4-45.2); HEMOGLOBIN 8.3 GM/dL (10.7-15.3); LYMPH % 10.7 % (8-40); MCH 30.5 pg (25.7-33.7); MCHC 33.1 g/dl (32.0-36.0); MEAN PLT VOLUME 9.6 fl (7.5-11.1); MONO % 12.1 % (3.8-10.2); PLATELET COUNT 119 K/MM3 (134-434); RBC 2.74 M/mm3 (3.60-5.2); RDW 17.1 % (11.6-15.6); WHITE BLOOD COUNT 7.1 K/mm3 (4.0-10.0)
[2020-03-28 15:12] LABS: ALBUMIN 3.1 g/dl (3.4-5.0); BILIRUBIN,DIRECT 0.2 mg/dL (0.0-0.2); BILIRUBIN,TOTAL 0.5 mg/dL (0.2-1); BLOOD UREA NITROGEN 27.8 mg/dL (7-18); CREATININE 0.9 mg/dL (0.55-1.3); MAGNESIUM 1.9 mg/dL (1.8-2.4); POTASSIUM 3.4 mmol/L (3.5-5.1); TOT PROT 6.2 g/dl (6.4-8.2)
[2020-03-28] MEDS ORDERED: POTASSIUM CHLORIDE TABS 20 MEQ TABLET.ER (FP) PO ONE (15:30)
[2020-03-28] MEDS ORDERED: amLODIPine BESYLATE 5 MG TABLET (FP) PO ONE (15:30)
[2020-03-28 18:01] VITALS: TEMP 99
[2020-03-28 18:04] VITALS: BP 150/58; PULSE 75
[2020-03-29 18:08] LABS: FREE KAPPA,SERUM 291.7 mg/L (3.3-19.4)
[2020-03-30 08:10] LABS: BETA-2-MICROGLOBULIN 2.8 mg/L (0.6-2.4)
== END 2020-03-28 14:10 | disposition home or self-care (01) ==
LOC: JONCCHEMO 07:14
PROVIDERS: ATTEND Internal Medicine Hematology & Oncology
PROC: 3E01305 Introduction of Other Antineoplastic into Subcutaneous Tissue, Percutaneous Approach (ICD-10-PCS; principal; 2020-03-28)
PROC: 3E0337Z Introduction of Electrolytic and Water Balance Substance into Peripheral Vein, Percutaneous Approach (ICD-10-PCS; 2020-03-28)
DX: Z51.11 Encounter for antineoplastic chemotherapy (principal); C90.00 Multiple myeloma not having achieved remission
CPT/HCPCS: 36415; 80048; 80076; 82232; 82784; 83615; 83735; 83883; 84155; 84156; 84157; 84165; 84550; 85025; 96360; 96401; J9041

== ENCOUNTER 2020-04-04 07:22 | Day surgery (SDC) | payer OTHER, BC ==
--- OUTSIDE RECORDS SUMMARY | 2020-04-04 07:30 | XMS ---
:1950 [facility] Providers Name Role Phone SHANITA [...] is protected by Article 27-F of the [place] State Public Health law. If you continue you may haveaccess to information: Regarding HIV / AIDS; Provided by facilities licensed or operated by the [facility] Office of Mental Health; or Provided by the [facility] Office for People With Developmental Disabilities. If such information is present, then the following [facility] mandated warning applies: This information has been [...] law may result in a fine or alf sentence or both. A general authorization for the release of medical or other information is NOT sufficient authorization for further disclosure. Encounters Encounter Providers Location Date Indications Data Source(s ) Inpatient Attender: SHANITA CARPENTER 10/06/2019 [facility] 01:30:00 PM EDT [facility] AAttender: STAFF ED - 10/20/2019 STAFF 05:15:00 PM EDT PHYSICIANAdmitter: SHANITA DIEHL AReferrer: SHANITA DIEHL A Patient discharged. Inpatient Attender: Solomon SahaHAL5 05/18/2019 04:44:00 [facility] MDAttender: STAFF ED STAFF PM EST - 05/23/2019 [facility] PHYSICIANAdmitter: Solomon 04:18:00 PM [facility] Peter MDReferrer: Solomon Green MD Patient discharged. Immunizations Vaccine Date Status Description Data Source(s) New in 2011. IIV4 05/23/2019 completed [facility] 03:31:00 PM EST Center pneumococcal 05/20/2019 completed [facility] Lucrecia M edical polysaccharide PPV23 11:33:00 AM EST [facility] er Medications Medication Brand Start Product Dose Route Administrative Pharmacy [facility] Indications Reaction Description Data Name Date Form Instructions Instructions Source(s) Acetaminoph oxyCOD 1 complet [facility] nt en 325 MG / ONE-ac [facility] Oxycodone etamin Medical Hydrochlori ophen Center [...] MG / ocusat Medical sennosides, e Center LONGTERM 8.6 MG sodium Oral Tablet 8.6 sennosides- [...] MG / ocusat Medical sennosides, e Center LONGTERM 8.6 MG sodium Oral Tablet 8.6 sennosides- [...] name Policy type Policy ID Covered Covered libertarian's Policy P augustina / Coverage libertarian ID relationship to [facility] ormation type [place] BLUE CROSS [id number] SP [id number] SUPP PLAN MEDICARE [id number] SP [id number] [id number] BC PPO [id number] SP [id number] BLUE CROSS [id number] SP [id number] SUPP PLAN M [id number] 01 [id number] M [id number] 01 [id number] BLUE CROSS O [id number] 01 [id number] BLUE CROSS O [id number] 01 [id number] M [id number] 01 [id number] M [id number] 01 [id number] MEDICARE [id number] SP [id number] BC PPO [id number] SP [id number] BLUE CROSS O [id number] 01 [id number] SECONDARY M [id number] 01 [id number] A MEDICARE [id number] SP [id number] A Problems, Conditions, and Diagnoses Code Display Name Description Problem Type Effective Data Dates Source(s) D64.9 Anemia, ANEMIA, Diagnosis 10/20/2019 [facility] unspecified UNSPECIFIED 05:15:00 PM Medical EDT Center E78.5 Hyperlipidemia, HYPERLIPIDEMIA, Diagnosis 10/20/2019 [facility] unspecified UNSPECIFIED 05:15:00 PM Medical EDT Center E87.6 Hypokalemia HYPOKALEMIA Diagnosis 10/20/2019 [place] [facility] 05:15:00 PM Medical EDT Center E11.65 Type 2 diabetes TYPE 2 DIABETES Diagnosis 10/20/2019 Anandaddis Castillos mellitus with MELLITUS WITH 05:15:00 PM Medical hyperglycemia HYPERGLYCEMIA EDT Center J96.01 Acute respiratory ACUTE RESPIRATORY Diagnosis 10/20/2019 [facility] failure with FAILURE WITH 05:15:00 PM Medical hypoxia HYPOXIA EDT Center J12.89 Other viral OTHER VIRAL Diagnosis 10/20/2019 [facility] pneumonia PNEUMONIA 05:15:00 PM Medical EDT Center U07.1 COVID-19 ACUTE COVID-19 ACUTE Diagnosis 10/20/2019 [facility] RESPIRATORY RESPIRATORY 05:15:00 PM Medical DISEASE DISEASE EDT Center 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 ID Date Data Source [id number] 01/03/2020 10:35:00 AM EDT [facility] Name Value Range Interpretation Description Data Sup porting Code Source(s) Document(s ) SARS [facility] CORONAVIRUS 2 RNA This lab was ordered by [facility] and reported by [facility]. ID Date Data Source [id number] 12/27/2019 12:00:00 AM EDT [facility] Name Value Range Interpretation Code Description Data Debra rce(s) Supporting Document(s ) 2019-nCoV [facility] RNA XXX TOM+probe- Imp This lab was ordered by [facility] and reported by [employer]. ID Date Data Source [id number] 12/06/2019 12:00:00 AM EDT [facility] Name Value Range Interpretation Code Description Data Debra rce(s) Supporting Document(s ) 2019-nCoV [facility] RNA XXX TOM+probe- Imp This lab was ordered by [facility] and reported by [employer] ID Date Data Source Liver 10/19/2019 06:58:00 AM EDT [facility] Profile.[id number] Name Value Range Interpretation Description Data Sup [...] s"> (3.5-5.0 G/DL)</content> ID Date Data Source HematologyRou.[id number] 10/19/2019 06:58:00 AM EDT [facility] 0400 Name Value Range Interpretation Description [...] (0.0 KCUMM)</content > ID Date Data Source GFR(Creatinine).[id number] 10/19/2019 06:58:00 AM EDT [facility] 0-0400 Name Value Range Interpretation Code Description Data Debra rce(s) Supporting Document(s ) UNK > 60 <content [facility] styleCode="Bold"> Medical Cent er EGFR </content>70 GFR<content styleCode="Italic s"> (> 60 GFR)</content> ID Date Data Source MROUTINECCDA.[id number] 10/19/2019 06:58:00 AM EDT [facility] -0400 Name Value Range Interpretation Description Data Sup porting Code Source(s) Document(s ) Ferritin 7-264 <content [facility] [Mass/volume] in styleCode="Bold [facility] Serum or Plasma ">Ferritin Medical </content>245 Center NG/ML<content styleCode="Ital ics"> (7-264 NG/ML)</content > UNK >= 1.0 Below low normal <content [facility] styleCode="Bold Lucrecia ">AG Ratio Medical </content>0.9 Center L<content styleCode="Ital ics"> (>= 1.0 )</content> UNK 2.3-3.5 <content [facility] styleCode="Bold Lucrecia ">Globulin Medical </content>3.4 Center G/DL<content styleCode="Ital ics"> (2.3-3.5 G/DL)</content> Protein 6.3-8.2 <content [facility] [Mass/volume] in styleCode="Bold [facility] Serum or Plasma ">Total Protein Medical </content>6.6 Center G/DL<content styleCode="Ital ics"> (6.3-8.2 G/DL)</content> Lactate 316-618 <content [facility] dehydrogenase styleCode="Gissel [facility] [Enzymatic ">Lactate Medical activity/volume] Dehydrogenase Center in Serum or (LDH) Plasma by </content>379 Pyruvate to IU/L<content lactate reaction styleCode="Ital ics"> (316-618 IU/L)</content> ID Date Data Source [facility].[id number] 10/19/2019 06:58:00 AM EDT [facility] Name Value Range Interpretation Description Data [...] Data Source Liver 10/17/2019 07:30:00 AM EDT [facility] Profile.[id number] Name Value Range Interpretation Description Data Sup porting Code Source(s) Document(s ) Alanine 7-30 Above high <content [facility] aminotransferase normal styleCode="Bold"> [facility] hs [Enzymatic Alanine Medical activity/volume] Aminotransferase Center [...] s"> (3.5-5.0 G/DL)</content> ID Date Data Source HematologyRou.[id number] 10/17/2019 07:30:00 AM EDT [facility] 0400 Name Value Range Interpretation Description [...] ics"> (0 /100)</content> ID Date Data Source GFR(Creatinine).[id number] 10/17/2019 07:30:00 AM EDT [facility] 0-0400 Name Value Range Interpretation Code Description Data Debra rce(s) Supporting Document(s ) UNK > 60 <content [facility] styleCode="Bold"> Medical Cent er EGFR </content>79 GFR<content styleCode="Italic s"> (> 60 GFR)</content> ID Date Data Source Coagulation 10/17/2019 07:30:00 AM [facility] Rout.[id number] EDT Name Value Range Interpretation Code Description Data Debra rce(s) Supporting Document(s ) UNK < 500 Above upper panic <content [place] [facility] limits styleCode="Bold"> Medical Cent er D-Dimer </content><conten t styleCode="Bold"> 2112 ngFEU HH</content><cont ent styleCode="Italic s"> (< 500 ngFEU)</content> ID Date Data Source CHMROUTINECCDA.[id number] 10/17/2019 07:30:00 AM EDT [facility] -0400 Name Value Range Interpretation Description [...] (1.6-2.3 MG/DL)</conten t> ID Date Data Source [facility].[id number] 10/17/2019 07:30:00 AM EDT [facility] Name Value Range Interpretation Description Data Sup porting Code Source(s) Document(s ) Potassium 3.5-5.3 <content [facility] [Moles/volume] in styleCode="Bold"> [facility] Serum or Plasma Potassium Medical </content>4.0 Center MEQ/L<content styleCode="Italic s"> (3.5-5.3 MEQ/L)</content> Chloride 98-107 Below low <content [facility] [Moles/volume] in normal styleCode="Bold"> [facility] Serum or Plasma Chloride Medical </content>95 Center MEQ/L L<content styleCode="Italic s"> (98-107 MEQ/L)</content> Sodium 137-145 <content [facility] [Moles/volume] in styleCode="Bold"> [facility] Serum or Plasma Sodium Medical </content>138 [...] Data Source Liver 10/16/2019 06:05:00 AM EDT [facility] Profile.[id number] Name Value Range Interpretation Description Data Sup [...] s"> (3.5-5.0 G/DL)</content> ID Date Data Source HematologyRou.[id number] 10/16/2019 06:05:00 AM EDT [facility] 0400 Name Value Range Interpretation Description Data Sup porting Code Source(s) Document(s ) Hematocrit 36.0-46. Below low normal <content [facility] [Volume 0 styleCode="Bold [facility] Fraction] of ">Hematocrit Medical Blood by [...] ics"> (NORMAL )</content> ID Date Data Source GFR(Creatinine).[id number] 10/16/2019 06:05:00 AM EDT [facility] 0-0400 Name Value Range Interpretation Code Description Data Debra rce(s) Supporting Document(s ) UNK > 60 <content [facility] styleCode="Bold"> Medical Cent er EGFR </content>79 GFR<content styleCode="Italic s"> (> 60 GFR)</content> ID Date Data Source CHMROUTINECCDA.[id number] 10/16/2019 06:05:00 AM EDT [facility] -0400 Name Value Range Interpretation Description Data Sup porting Code Source(s) Document(s ) UNK 2.3-3.5 <content [facility] styleCode="Bold Medical ">Globulin Center </content>3.0 G/DL<content styleCode="Ital ics"> (2.3-3.5 G/DL)</content> UNK >= 1.0 <content [facility] styleCode="Bold Medical ">AG Ratio Center </content>1.0 <content styleCode="Ital ics"> (>= 1.0 )</content> Protein 6.3-8.2 Below low normal <content [facility] [Mass/volum styleCode="Bold Medical e] in Serum ">Total Protein Center or Plasma </content>6.0 G/DL L<content styleCode="Ital ics"> (6.3-8.2 G/DL)</content> ID Date Data Source [employer].[id number] 10/16/2019 06:05:00 AM EDT [facility] -0400 Name Value Range Interpretation Description Data Sup porting Code Source(s) Document(s ) Troponin < 0.034 <content [facility] I.cardiac styleCode="Bold [facility] [Mass/volume ">Troponin I Medical ] in Serum </content>< Center or Plasma 0.012 NG/ML<content styleCode="Ital ics"> (< 0.034 NG/ML)</content > ID Date Data Source BMP.[id number] 10/16/2019 06:05:00 AM EDT [facility] Name Value Range Interpretation Description Data Sup porting Code Source(s) Document(s ) Chloride 98-107 Below low <content [facility] [Moles/volume] in normal styleCode="Bold"> [facility] Serum or Plasma Chloride Medical </content>94 [...] s"> (3.5-5.0 G/DL)</content> ID Date Data Source HematologyRou.[id number] 10/13/2019 05:35:00 AM EDT [facility] 0400 Name [...] /100)</content> UNK NORMAL <content [facility] styleCode="Bold [facility] ">[facility] </content>SLIGH Center T <content styleCode="Ital [...] ics"> (2-9 %)</content> ID Date Data Source CHMROUTINECCDA.[id number] 10/12/2019 01:35:00 PM EDT [facility] -0400 Name Value Range Interpretation Description Data Sup porting Code Source(s) Document(s ) Lactate 0.7-2.0 Above upper panic <content [place] [facility] [Mass/volum limits styleCode="Bold Medical e] in Serum ">Lactic Acid Center or Plasma </content><cont ent styleCode="Bold ">3.6 MMOLL HH</content><co ntent styleCode="Ital ics"> (0.7-2.0 MMOLL)</content > ID Date Data Source HematologySpeci.[id number] 10/12/2019 01:28:00 PM EDT [facility] 0-0400 Name Value Range Interpretation Description Data Sup porting Code Source(s) Document(s ) C reactive < 3.0 Above high normal <content [facility] hs protein styleCode="Bold Medical [Mass/volume ">C-Reactive Center ] in Serum Protein or Plasma </content>> 15.0 MG/L H<content styleCode="Ital ics"> (< 3.0 MG/L)</content> ID Date Data Source CHMROUTINECCDA.[id number] 10/12/2019 01:28:00 PM EDT [facility] -0400 Name Value Range Interpretation Description [...] Data Source Liver 10/11/2019 05:45:00 AM EDT [facility] Profile.[id number] Name Value Range Interpretation Description Data Sup [...] (3.5-5.0 G/DL)</content> Alkaline 38-126 Above high <content [facility] phosphatase normal styleCode="Bold"> Lucrecia [Enzymatic Alkaline Medical activity/volume] Phosphatase (ALP) Cente r in Serum or Plasma </content>262 IU/L H<content styleCode="Italic s"> (38-126 IU/L)</content> Bilirubin.total 0.2-1.3 <content [facility] [Mass/volume] in styleCode="Bold"> Abiel hs Serum or Plasma Bilirubin Total Medical </content>0.9 Center MG/DL<content styleCode="Italic s"> (0.2-1.3 MG/DL)</content> ID Date Data Source GFR(Creatinine).[id number] 10/11/2019 05:45:00 AM EDT [facility] 0-0400 Name Value Range Interpretation Code Description Data Debra rce(s) Supporting Document(s ) UNK > 60 <content [facility] styleCode="Bold"> Medical Cent er EGFR </content>79 GFR<content styleCode="Italic s"> (> 60 GFR)</content> ID Date Data Source [facility].[id number] 10/11/2019 05:45:00 AM EDT [facility] Name Value Range Interpretation Description Data Sup porting Code Source(s) Document(s ) Sodium 137-145 <content [facility] [Moles/volume] in styleCode="Bold"> [facility] Serum or Plasma Sodium Medical </content>137 Center MEQ/L<content styleCode="Italic s"> (137-145 MEQ/L)</content> Potassium 3.5-5.3 <content [facility] [Moles/volume] in styleCode="Bold"> [facility] phs Serum or Plasma Potassium Medical </content>3.7 Center MEQ/L<content styleCode="Italic s"> (3.5-5.3 MEQ/L)</content> Chloride 98-107 <content [facility] [Moles/volume] in styleCode="Bold"> [facility] Serum or Plasma Chloride Medical </content>98 [...] s"> (3.5-5.0 G/DL)</content> ID Date Data Source HematologyRou.[id number] 10/11/2019 05:10:00 AM EDT [facility] 0400 Name Value Range Interpretation Description [...] Date Data Source Coagulation 10/11/2019 05:10:00 AM [facility] ical Center Rout.[id number] EDT Name Value Range Interpretation Code Description Data Debra rce(s) Supporting Document(s ) UNK < 500 Above upper panic <content [place] limits styleCode="Bold"> Medical Cent er D-Dimer </content><conten t styleCode="Bold"> 5198 ngFEU HH</content><cont ent styleCode="Italic s"> (< 500 ngFEU)</content> ID Date Data Source HematologySpeci.[id number] 10/10/2019 05:35:00 PM [facility] Name Value Range Interpretation Description Data Sup porting Code Source(s) Document(s ) C reactive < 3.0 Above high normal <content [facility] hs protein styleCode="Bold Medical [Mass/volume ">C-Reactive Center ] in Serum Protein or Plasma </content>> 15.0 MG/L H<content styleCode="Ital ics"> (< 3.0 MG/L)</content> ID Date Data Source Liver 10/09/2019 05:10:00 AM EDT [facility] Profile.[id number] Name Value Range Interpretation Description Data Sup [...] s"> (38-126 IU/L)</content> ID Date Data Source GFR(Creatinine).[id number] 10/09/2019 05:10:00 AM EDT [facility] 0-0400 Name Value Range Interpretation Code Description Data Debra rce(s) Supporting Document(s ) UNK > 60 <content [facility] styleCode="Bold"> Medical Cent er EGFR </content>70 GFR<content styleCode="Italic s"> (> 60 GFR)</content> ID Date Data Source BMP.[id number] 10/09/2019 05:10:00 AM EDT [facility] Name Value Range Interpretation Description Data [...] G/DL)</content> Alkaline 38-126 <content [facility] phosphatase styleCode="Bold"> [facility] [Enzymatic Alkaline Medical activity/volume] Phosphatase (ALP) Cente r in Serum or Plasma </content>99 IU/L<content styleCode="Italic s"> (38-126 IU/L)</content> ID Date Data Source HematologySpeci.[id number] 10/08/2019 04:14:00 AM EDT [facility] 0-0400 Name Value Range Interpretation Description Data Sup porting Code Source(s) Document(s ) C reactive < 3.0 Above high normal <content [facility] hs protein styleCode="Bold Medical [Mass/volume ">C-Reactive Center ] in Serum Protein or Plasma </content>> 15.0 MG/L H<content styleCode="Ital ics"> (< 3.0 MG/L)</content> ID Date Data Source [employer].[id number] 10/08/2019 04:14:00 AM EDT [facility] -0400 Name Value Range Interpretation Description Data Sup porting Code Source(s) Document(s ) Troponin < 0.034 Above upper panic <content [facility] I.cardiac limits styleCode="Bold [place] [Mass/volume ">Troponin I Medical ] in Serum </content><cont Center or Plasma ent styleCode="Bold ">0.037 NG/ML HH</content><co ntent styleCode="Ital ics"> (< 0.034 NG/ML)</content > ID Date Data Source HematologyRou.[id number] 10/07/2019 04:10:00 AM EDT [facility] 0400 Name Value Range Interpretation Description [...] (0-0.1 KCUMM)</content > ID Date Data Source GFR(Creatinine).[id number] 10/07/2019 04:10:00 AM EDT [facility] 0-0400 Name Value Range Interpretation Code Description Data Debra rce(s) Supporting Document(s ) UNK > 60 <content [facility] styleCode="Bold"> Medical Cent er EGFR </content>79 GFR<content styleCode="Italic s"> (> 60 GFR)</content> ID Date Data Source BMP.[id number] 10/07/2019 04:10:00 AM EDT [facility] ephs [...] (8.4-10.2 MG/DL)</conten t> ID Date Data Source MROUTINECCDA.[id number] 10/06/2019 07:30:00 PM EDT [facility] -0400 Name Value Range Interpretation Code Description Data Debra rce(s) Supporting Document(s ) UNK 0.7-2.0 <content [facility] styleCode="Bold" Medical Cente r >Lactic Acid 4hr </content>0.9 MMOLL<content styleCode="Itali cs"> (0.7-2.0 MMOLL)</content> ID Date Data Source Microbiology.[id number] 10/06/2019 04:20:00 PM EDT [facility] 400 Name Value Range Interpretation Code Description Data Debra rce(s) Supporting Document(s ) UNK <item><content [facility] styleCode="Bold"> Medical Cent er Culture Report </content>
<t able><tbody><tr>< td>Specimen Number:</td><td>[id number]</td></tr ><tr><td>Sample Collection Date/Time: </td><td>10/06/2019 4:20 PM</td></tr><tr>< td>Specimen Source:</td><td>B LOOD</td></tr><tr ><td>Blood Culture:</td><td> Collection Plate Date: 10/06/2019 16:21 </td></tr><tr><td >Culture Status:</td><td>F inal </td></tr><tr><td >Culture Report:</td><td>N O GROWTH 5 DAYS </td></tr></tbody ></table></item> UNK <item><[facility] Medical [facility] er Culture Status </content>
<t able><tbody><tr>< td>Specimen Number:</td><td>[id number]</td></tr ><tr><td>Sample Collection Date/Time: </td><td>10/06/2019 4:20 PM</td></tr><tr>< td>Specimen Source:</td><td>B LOOD</td></tr><tr ><td>Blood Culture:</td><td> Collection Plate Date: 10/06/2019 16:21 </td></tr><tr><td >Culture Report:</td><td>N O GROWTH 5 DAYS </td></tr><tr><td >Culture Status:</td><td>F inal </td></tr></tbody ></table></item> ID Date Data Source Microbiology.[id number] 10/06/2019 04:00:00 PM EDT [facility] 400 Name Value Range Interpretation Code Description Data Debra rce(s) Supporting Document(s ) UNK <item><content [facility] styleCode="Bold"> Medical [facility] er Culture Status </content>
<t able><tbody><tr>< td>Specimen Number:</td><td>[id number]</td></tr ><tr><td>Sample Collection Date/Time: </td><td>10/06/2019 4:00 PM</td></tr><tr>< td>Specimen Source:</td><td>B LOOD</td></tr><tr ><td>Culture Report:</td><td>N O GROWTH 5 DAYS </td></tr><tr><td >Culture Status:</td><td>F inal </td></tr><tr><td >Blood Culture:</td><td> Collection Plate Date: 10/06/2019 16:12 </td></tr></tbody ></table></item> UNK <item><content [facility] styleCode="Bold"> Medical Cent er Culture Report </content>
<t able><tbody><tr>< td>Specimen Number:</td><td>[id number]</td></tr ><tr><td>Sample Collection Date/Time: </td><td>10/06/2019 4:00 PM</td></tr><tr>< td>Specimen Source:</td><td>B LOOD</td></tr><tr ><td>Blood Culture:</td><td> Collection Plate Date: 10/06/2019 16:12 </td></tr><tr><td >Culture Status:</td><td>F inal </td></tr><tr><td >Culture Report:</td><td>N O GROWTH 5 DAYS </td></tr></tbody ></table></item> ID Date Data Source HematologySpeci.[id number] 10/06/2019 04:00:00 PM EDT [facility] 0-0400 Name Value Range Interpretation Description Data Sup porting Code Source(s) Document(s ) C reactive < 3.0 Above high normal <content [facility] hs protein styleCode="Bold Medical [Mass/volume ">C-Reactive Center ] in Serum Protein or Plasma </content>> 15.0 MG/L H<content styleCode="Ital ics"> (< 3.0 MG/L)</content> ID Date Data Source Coagulation 10/06/2019 04:00:00 PM [facility] Rout.[id number] EDT Name Value Range Interpretation Description Data Sup porting Code Source(s) Document(s ) UNK 9.0-13.0 <content [facility] styleCode="Layla Lucrecia d">[facility] Medical </content>12.6 Center SEC<content styleCode="Christina lics"> (9.0-13.0 SEC)</content> INR in 0.80-1.2 <content [facility] Platelet poor 0 styleCode="[facility] plasma by d">INR Medical Coagulation </content>1.14 Center assay #<content styleCode="Christina lics"> (0.80-1.20 #)</content> ID Date Data Source [employer]Markers.[id number] 10/06/2019 04:00:00 PM EDT [facility] -0400 Name Value Range Interpretation Description Data Sup porting Code Source(s) Document(s ) Troponin < 0.034 <content [facility] I.cardiac styleCode="Bold [facility] [Mass/volume ">Troponin I Medical ] in Serum </content>0.027 Center or Plasma NG/ML<content styleCode="Ital ics"> (< 0.034 NG/ML)</content > ID Date Data Source Liver 10/06/2019 04:00:00 PM EDT [facility] Profile.[id number] Name Value Range Interpretation Description Data Sup [...] s"> (3.5-5.0 G/DL)</content> ID Date Data Source HematologyRou.[id number] 10/06/2019 04:00:00 PM EDT [facility] 0400 Name [...] > Basophils 0.0-1.0 <content [facility] [#/volume] in styleCode="[facility] Blood by ">Basophil Medical Automated count [...] ics"> (0 /100)</content> ID Date Data Source GFR(Creatinine).[id number] 10/06/2019 04:00:00 PM EDT [facility] 0-0400 Name Value Range Interpretation Code Description Data Debra rce(s) Supporting Document(s ) UNK > 60 <content [facility] styleCode="Bold"> Medical Cent er EGFR </content>79 GFR<content styleCode="Italic s"> (> 60 GFR)</content> ID Date Data Source [facility].[id number] 10/06/2019 04:00:00 PM EDT [facility] -0400 Name Value Range Interpretation Description [...] ics"> (23-300 IU/L)</content> ID Date Data Source [facility].[id number] 10/06/2019 04:00:00 PM EDT [facility] Name Value Range Interpretation Description Data [...] s"> (3.5-5.0 G/DL)</content> ID Date Data Source HematologyRou.[id number] 05/23/2019 06:01:00 AM JOSEPH Seamus nt [facility] 0500 Name [...] (0.0 KCUMM)</content > ID Date Data Source GFR(Creatinine).[id number] 05/23/2019 06:01:00 AM [facility] 0-0500 Name Value Range Interpretation Code Description Data Debra rce(s) Supporting Document(s ) UNK > 60 <content [facility] styleCode="Bold"> Medical Cent er EGFR </content>106 GFR<content styleCode="Italic s"> (> 60 GFR)</content> ID Date Data Source XIOMARAMRDORYS.[id number] 05/23/2019 06:01:00 AM [facility] -0500 Name Value Range Interpretation Description Data Sup porting Code Source(s) Document(s ) Magnesium 1.6-2.3 <content [facility] [Mass/volume] styleCode="Layla Lucrecia in Serum or d">Magnesium Medical Plasma </content>2.0 Center MG/DL<content styleCode="Christina lics"> (1.6-2.3 MG/DL)</conten t> ID Date Data Source [facility].[id number] 05/23/2019 06:01:[address] [facility] Name Value Range Interpretation Description [...] (> 60 GFR)</content> ID Date Data Source HematologyRou.[id number] 05/22/2019 06:12:[address] [facility] 0500 Name Value Range Interpretation Description [...] (130-400 KCUMM)</content > ID Date Data Source GFR(Creatinine).[id number] 05/22/2019 06:12:[address] [facility] 0-0500 Name Value Range Interpretation Code Description Data Debra rce(s) Supporting Document(s ) UNK > 60 <content [facility] styleCode="Bold"> Medical Cent er EGFR </content>106 GFR<content styleCode="Italic s"> (> 60 GFR)</content> ID Date Data Source XIOMARAMRDORYS.[id number] 05/22/2019 06:12:[address] [facility] -0500 Name Value Range Interpretation Description Data Sup porting Code Source(s) Document(s ) Magnesium 1.6-2.3 <content [facility] [Mass/volume] styleCode="Layla Lucrecia in Serum or d">Magnesium Medical Plasma </content>2.1 Center MG/DL<content styleCode="Christina lics"> (1.6-2.3 MG/DL)</conten t> ID Date Data Source GREGG.[id number] 05/22/2019 06:12:00 AM EST [facility] Name Value Range Interpretation Description Data [...] Data Source Liver 05/21/2019 07:05:00 AM EST [facility] Profile.[id number] Name Value Range Interpretation Description Data Sup porting Code Source(s) Document(s ) Alanine 7-30 <content [facility] aminotransferase styleCode="Bold"> Abiel hs [Enzymatic Alanine Medical activity/volume] Aminotransferase Center in Serum or Plasma (ALT) </content>18 IU/L<content styleCode="Italic s"> (7-30 IU/L)</content> Aspartate 14-36 <content [facility] aminotransferase styleCode="Bold"> Abiel hs [Enzymatic Aspartate Medical [...] s"> (0.2-1.3 MG/DL)</content> ID Date Data Source HematologyRou.[id number] 05/21/2019 07:05:00 AM JOSEPH Seamus [facility] 0500 Name Value Range Interpretation Description Data Sup porting Code Source(s) Document(s ) Hemoglobin 12.3-16. Below low normal <content [facility] [Mass/volume] in 0 styleCode="Bold Lucrecia Blood ">Hemoglobin Medical </content>11.2 Center G/DL L<content styleCode="Ital ics"> (12.3-16.0 G/DL)</content> Erythrocytes 4.0-5.1 Below low normal <content Saint [#/volume] in styleCode="Bold [facility] Blood by ">Red Blood Medical Automated count Cell Count Center </content>3.88 MCUMM L<content styleCode="Ital ics"> (4.0-5.1 MCUMM)</content > Leukocytes 4.4-11.0 <content Saint [#/volume] in styleCode="Bold [facility] Blood by ">White Blood Medical Automated [...] Basophils 0.0-1.0 <content Saint [#/volume] in styleCode="Bold [facility] Blood by ">Basophil Medical Automated count [...] (0.0 KCUMM)</content > ID Date Data Source GFR(Creatinine).[id number] 05/21/2019 07:05:00 AM EST Seamus [facility] 0-0500 Name Value Range Interpretation Code Description Data Debra rce(s) Supporting Document(s ) UNK > 60 <content [facility] styleCode="Bold"> Medical Cent er EGFR </content>106 GFR<content styleCode="Italic s"> (> 60 GFR)</content> ID Date Data Source [facility].[id number] 05/21/2019 07:05:00 AM JOSEPH cee [facility] -0500 Name [...] ics"> (6.3-8.2 G/DL)</content> ID Date Data Source [facility].[id number] 05/21/2019 07:05:00 AM JOSEPH Rose [facility] Name Value Range Interpretation Description Data [...] high <content [facility] [Mass/volume] in normal styleCode="Bold"> Aibel hs Serum or Plasma Glucose Medical </content>169 [...] Data Source Liver 05/20/2019 05:56:00 AM EST [facility] Profile.[id number] Name Value Range Interpretation Description Data Sup [...] s"> (0.2-1.3 MG/DL)</content> ID Date Data Source HematologyRou.[id number] 05/20/2019 05:56:[address] [facility] 0500 Name Value Range Interpretation Description [...] low normal <content [facility] [Volume 0 styleCode="Bold [facility] Fraction] of ">Hematocrit Medical Blood by [...] Monocytes 3.0-10.0 <content [facility] [#/volume] in styleCode="Bold Lucrecai Blood by ">Monocyte Medical Automated count </content>9.5 [...] > UNK < 1 <content [facility] styleCode="Bold Lcurecia ">Immature Medical Granulocyte Center Ratio </content>0.4 %<content styleCode="Ital ics"> (< 1 %)</content> UNK 0-0.1 <content [facility] styleCode="Bold Lucrecia ">Immature Medical Granulocyte Center Count </content>0.04 KCUMM<content styleCode="Ital ics"> (0-0.1 KCUMM)</content > ID Date Data Source GFR(Creatinine).[id number] 05/20/2019 05:56:00 AM [facility] 0-0500 Name Value Range Interpretation Code Description Data Debra rce(s) Supporting Document(s ) UNK > 60 <content [facility] styleCode="Bold"> Medical Cent er EGFR </content>106 GFR<content styleCode="Italic s"> (> 60 GFR)</content> ID Date Data Source CHMROUTINECCDA.[id number] 05/20/2019 05:56:00 AM EST [facility] -0500 Name Value Range Interpretation Description [...] (1.6-2.3 MG/DL)</conten t> ID Date Data Source [facility].[id number] 05/20/2019 05:56:00 AM EST [facility] Name Value Range Interpretation Description Data Sup porting Code Source(s) Document(s ) Sodium 137-145 <content [facility] [Moles/volume] in styleCode="Bold"> [facility] Serum or Plasma Sodium Medical </content>140 Center MEQ/L<content styleCode="Italic s"> (137-145 MEQ/L)</content> Potassium 3.5-5.3 <content [facility] [Moles/volume] in styleCode="Bold"> [facility] Serum or Plasma Potassium Medical </content>3.5 [...] Bilirubin.total 0.2-1.3 <content [facility] [Mass/volume] in styleCode="Bold"> Baiel hs Serum or Plasma Bilirubin Total Medical </content>0.6 Center MG/DL<content styleCode="Italic s"> (0.2-1.3 MG/DL)</content> Albumin 3.5-5.0 <content [facility] [Mass/volume] in styleCode="Bold"> Abiel hs Serum or Plasma Albumin Medical </content>3.5 Center G/DL<content styleCode="Italic s"> (3.5-5.0 G/DL)</content> ID Date Data Source [facility].[id number] 05/19/2019 12:17:00 PM EST [facility] Name Value Range Interpretation Description Data Sup porting Code Source(s) Document(s ) Potassium 3.5-5.3 <content [facility] [Moles/volume styleCode="Layla Lucrecia ] in Serum or d">Potassium Medical Plasma </content>3.6 Center MEQ/L<content styleCode="Christina lics"> (3.5-5.3 MEQ/L)</conten t> ID Date Data Source Urinalysis.[id number] 05/19/2019 08:33:00 AM EST Seamus nt [facility] 0 Name Value Range Interpretation Description Data [...] by Test d">Urine Medical strip Specific Center [place] </content>1.02 0 <content styleCode="Christina lics"> (1.015-1.025 )</content> [...] Red Medical Blood Cell Center </content>0-3 HPF<content styleCode="Chirstina lics"> (0-3 HPF)</content> ID Date Data Source Hormones.[id number] 05/19/2019 05:40:00 AM JOSEPH Michel [facility] Name Value Range Interpretation Description Data Sup porting Code Source(s) Document(s ) Thyrotropin 0.465-4. <content [facility] [Units/volume] 68 styleCode="Layla Lucrecia in Serum or d">Thyroid Medical Plasma by Stimulating Center Detection Hormone limit <= 0.05 </content>0.49 mIU/L 2 MIU/L<content styleCode="Christina lics"> (0.465-4.68 MIU/L)</conten t> ID Date Data Source HematologyRou.[id number] 05/19/2019 05:40:00 AM EST Seamus nt [facility] 0500 Name [...] (0.0 KCUMM)</content > ID Date Data Source GFR(Creatinine).[id number] 05/19/2019 05:40:00 AM [employer] [facility] 0-0500 Name Value Range Interpretation Code Description Data Debra rce(s) Supporting Document(s ) UNK > 60 <content [facility] styleCode="Bold"> Medical Cent er EGFR </content>127 GFR<content styleCode="Italic s"> (> 60 GFR)</content> ID Date Data Source CHMROUTINECCDA.[id number] 05/19/2019 05:40:00 AM EST [facility] -0500 Name Value Range Interpretation Description [...] (1.6-2.3 MG/DL)</conten t> ID Date Data Source [facility].[id number] 05/19/2019 05:40:00 AM EST [facility] Name Value Range Interpretation Description Data [...] Data Source Liver 05/18/2019 08:00:00 PM EST [facility] Profile.[id number] Name Value Range Interpretation Description Data Sup [...] Date Data Source Coagulation 05/18/2019 08:00:00 PM [facility] Center Rout.[id number] EST Name Value Range Interpretation Description Data [...] cs"> (0.80-1.20 #)</content> ID Date Data Source CardiacMarkers.[id number] 05/18/2019 08:00:00 PM EST [facility] -0500 Name Value Range Interpretation Description Data Sup porting Code Source(s) Document(s ) Creatine 30-135 <content [facility] Lucrecia kinase styleCode="Bold Medical [Enzymatic ">CK Center activity/vol </content>59 ume] in IU/L<content Serum or styleCode="Ital Plasma ics"> (30-135 IU/L)</content> ID Date Data Source HematologyRou.[id number] 05/18/2019 08:00:00 PM EST [facility] 0500 Name Value Range Interpretation Description [...] Basophils 0.0-1.0 <content Saint [#/volume] in styleCode="Bold [facility] Blood by ">Basophil Medical Automated count [...] (0.0 KCUMM)</content > ID Date Data Source GFR(Creatinine).[id number] 05/18/2019 08:00:00 PM EST Seamus [facility] 0-0500 Name Value Range Interpretation Code Description Data Debra rce(s) Supporting Document(s ) UNK > 60 <content [facility] styleCode="Bold"> Medical Cent er EGFR </content>127 GFR<content styleCode="Italic s"> (> 60 GFR)</content> ID Date Data Source [id number] 05/18/2019 08:00:00 PM JOSEPH [facility] -0500 Name Value Range Interpretation Description Data Sup porting Code Source(s) Document(s ) Protein 6.3-8.2 <content [facility] Lucrecia [Mass/volum styleCode="Bold Medical e] in Serum ">Total Protein Center or Plasma </content>6.8 G/DL<content styleCode="Ital ics"> (6.3-8.2 G/DL)</content> UNK >= 1.0 <content [facility] styleCode="Bold Medical ">AG Ratio Center </content>1.3 <content styleCode="Ital ics"> (>= 1.0 )</content> UNK 2.3-3.5 <content [facility] styleCode="Bold Medical ">Globulin Center </content>2.9 G/DL<content styleCode="Ital ics"> (2.3-3.5 G/DL)</content> ID Date Data Source [facility].[id number] 05/18/2019 08:00:00 PM EST [facility] Name Value Range Interpretation Description Data Sup porting Code Source(s) Document(s ) Potassium 3.5-5.3 Below low <content [facility] [Moles/volume] in normal styleCode="Bold"> [facility] Serum or Plasma Potassium Medical </content>3.2 [...] 05/18/2019 Denies Ever completed Denies Ever Smoked [place] 04:52:00 PM EST Smoked Medical C enter Vital Signs ID Date Data Source UNK Name Value Range Interpretation Code Description Data Source(s) Body temperature 36.505925 36.590867 [facility] Respiratory rate 18 /min 18 /min [facility] Heart rate 64 /min 64 /min [facility] Diastolic blood 64 mm[Hg] 64 mm[Hg] [facility] Medical [place] Systolic blood 157 mm[Hg] 157 mm[Hg] [facility] Body temperature 36.482821 36.021261 [facility] Respiratory rate 18 /min 18 /min [facility] Heart rate 79 /min 79 /min [facility] Diastolic blood 81 mm[Hg] 81 mm[Hg] [facility] Medical [place] Systolic blood 129 mm[Hg] 129 mm[Hg] [facility] Body temperature 36.668470 36.975525 [facility] Respiratory rate 18 /min 18 /min [facility] Heart rate 75 /min 75 /min [facility] Diastolic blood 64 mm[Hg] 64 mm[Hg] [facility] Medical Center Systolic blood 134 mm[Hg] 134 mm[Hg] [facility] Oxygen saturation 96 % 96 % [facility] in [facility] blood [facility] Center by Pulse oximetry Body temperature 36.460150 36.726103 [facility] Respiratory rate 19 /min 19 /min [facility] Heart rate 85 /min 85 /min [facility] Diastolic blood 89 mm[Hg] 89 mm[Hg] [facility] Medical Center Systolic blood 198 mm[Hg] 198 mm[Hg] [facility] Medical [place] Body temperature 36.255773 36.211274 [facility] Respiratory rate 18 /min 18 /min [facility] Heart rate 73 /min 73 /min [facility] Diastolic blood 76 mm[Hg] 76 mm[Hg] [facility] Medical Center Systolic blood 130 mm[Hg] 130 mm[Hg] [facility] Medical [place] Oxygen saturation 97 % 97 % [facility] in Arterial blood [facility] Center by Pulse oximetry Oxygen saturation 98 % 98 % [facility] in Arterial blood Medical Center by Pulse oximetry Oxygen saturation 94 % 94 % [facility] in Arterial blood Medical Center by Pulse oximetry Body weight 65.576195 kg 65.057255 kg [facility] Measured Medical Center Body height 162.523673 162.822169 cm [facility] Body mass index 24.92 kg/m2 24.92 kg/m2 [facility] (BMI) [Ratio] [facility] [address] Oxygen saturation 97 % 97 % [facility] in [facility] blood [facility] Center by Pulse oximetry Body weight 66.964415 kg 66.338585 kg [facility] Body temperature 37.137296 37.836513 [facility] Respiratory rate 19 /min 19 /min [facility] Oxygen saturation 94 % 94 % [facility] in [facility] by Pulse oximetry Heart rate 97 /min 97 /min [facility] Diastolic blood 78 mm[Hg] 78 mm[Hg] [facility] Systolic blood 157 mm[Hg] 157 mm[Hg] [facility] Body temperature 37.962738 37.075664 [facility] Respiratory rate 20 /min 20 /min [facility] Oxygen saturation 95 % 95 % [facility] in [facility] blood [facility] by Pulse oximetry Heart rate 113 /min 113 /min [facility] Diastolic blood 80 mm[Hg] 80 mm[Hg] [facility] Center Systolic blood 172 mm[Hg] 172 mm[Hg] [facility] Body temperature 37.674894 37.245721 [facility] Respiratory rate 20 /min 20 /min [facility] Oxygen saturation 93 % 93 % [facility] in [facility] blood [facility] by Pulse oximetry Heart rate 105 /min 105 /min [facility] Diastolic blood 80 mm[Hg] 80 mm[Hg] [facility] Systolic blood 165 mm[Hg] 165 mm[Hg] [facility] Body temperature 36.222382 36.671853 [facility] Respiratory rate 17 /min 17 /min [facility] Oxygen saturation 98 % 98 % [facility] in Arterial blood Medical Center by Pulse oximetry Heart rate 99 /min 99 /min [facility] Diastolic blood 76 mm[Hg] 76 mm[Hg] [facility] Medical Center Systolic blood 159 mm[Hg] 159 mm[Hg] [facility] Body temperature 37.788333 37.920131 [facility] Respiratory rate 24 /min 24 /min [facility] Oxygen saturation 93 % 93 % [facility] in Arterial blood [facility] Center by Pulse oximetry Heart rate 113 /min 113 /min [facility] Diastolic blood 86 mm[Hg] 86 mm[Hg] [facility] Center Systolic blood 156 mm[Hg] 156 mm[Hg] [facility] Body weight 69.277896 kg 69.024452 kg [facility] Body height 162.433419 162.500234 cm [facility] Body mass index 26.2 kg/m2 26.2 kg/m2 [facility] (BMI) [Ratio] [facility] [address] Body temperature 36.262942 36.809459 [facility] Respiratory rate 18 /min 18 /min [facility] Heart rate 67 /min 67 /min [facility] Diastolic blood 74 mm[Hg] 74 mm[Hg] [facility] Systolic blood 158 mm[Hg] 158 mm[Hg] [facility] Body weight 69.241612 kg 69.283457 kg [facility] Center Body height 162.118677 162.924646 cm [facility] Body mass index 26.30 kg/m2 26.30 kg/m2 [facility] (BMI) [Ratio] [facility] [address] Body temperature 36.446687 36.180790 [facility] Respiratory rate 18 /min 18 /min [facility] Oxygen saturation 97 % 97 % [facility] in [facility] blood [facility] by Pulse oximetry Heart rate 67 /min 67 /min [facility] Diastolic blood 81 mm[Hg] 81 mm[Hg] [facility] Center Systolic blood 152 mm[Hg] 152 mm[Hg] [facility] [place] Body temperature 36.979987 36.388673 [facility] Respiratory rate 18 /min 18 /min [facility] Heart rate 76 /min 76 /min [facility] Diastolic blood 70 mm[Hg] 70 mm[Hg] [facility] Medical Center Systolic blood 145 mm[Hg] 145 mm[Hg] [facility] Center Heart rate 64 /min 64 /min [facility] Diastolic blood 80 mm[Hg] 80 mm[Hg] [facility] Medical Center Systolic blood 142 mm[Hg] 142 mm[Hg] [facility] Center Body temperature 36.486122 36.552547 [facility] Respiratory rate 20 /min 20 /min [facility] Heart rate 65 /min 65 /min [facility] Diastolic blood 62 mm[Hg] 62 mm[Hg] [facility] Medical Center Systolic blood 160 mm[Hg] 160 mm[Hg] [facility] [place] Body weight 69.826065 kg 69.226802 kg [facility] Body height 162.907877 162.945216 cm [facility] Medical [place] Body mass index 26.30 kg/m2 26.30 kg/m2 [facility] (BMI) [Ratio] Medical [facility] ter Body temperature 37.670656 37.442804 [facility] Respiratory rate 20 /min 20 /min [facility] Body temperature 36.548212 36.769420 [facility] Respiratory rate 18 /min 18 /min [facility] Heart rate 69 /min 69 /min [facility] Diastolic blood 70 mm[Hg] 70 mm[Hg] [facility] Medical Center Systolic blood 178 mm[Hg] 178 mm[Hg] [facility] Body temperature 36.242324 36.803825 [facility] Respiratory rate 16 /min 16 /min [facility] Heart rate 74 /min 74 /min [facility] Diastolic blood 86 mm[Hg] 86 mm[Hg] [facility] Medical Center Systolic blood 190 mm[Hg] 190 mm[Hg] [facility] Center Body temperature 36.842838 36.262264 [facility] Respiratory rate 20 /min 20 /min [facility] Heart rate 68 /min 68 /min [facility] Diastolic blood 86 mm[Hg] 86 mm[Hg] [facility] Medical Center Systolic blood 179 mm[Hg] 179 mm[Hg] [facility] Body weight 69.039658 kg 69.147811 kg [facility] Oxygen saturation 95 % 95 % [facility] blood [facility] Center by Pulse oximetry Body height 162.710599 162.469547 cm [facility] Body mass index 26.30 kg/m2 26.30 kg/m2 [facility] (BMI) [Ratio] [facility] [address] Body temperature 36.370305 36.429209 [facility] Respiratory rate 18 /min 18 /min [facility] Heart rate 69 /min 69 /min [facility] Diastolic blood 87 mm[Hg] 87 mm[Hg] [facility] Center Systolic blood 179 mm[Hg] 179 mm[Hg] [facility] Oxygen saturation 97 % 97 % [facility] Center by Pulse oximetry Body temperature 37.554281 37.021621 [facility] Respiratory rate 18 /min 18 /min [facility] Heart rate 76 /min 76 /min [facility] Diastolic blood 83 mm[Hg] 83 mm[Hg] [facility] Systolic blood 176 mm[Hg] 176 mm[Hg] [facility] Oxygen saturation 97 % 97 % [facility] in [facility] blood [facility] Center by Pulse oximetry Body weight 65.720685 kg 65.868419 kg [facility]asured [facility] Center Oxygen saturation 97 % 97 % [facility] in [facility] blood [facility] Center by Pulse oximetry Body height 162.024278 162.042183 cm [facility] Body mass index 24.5 kg/m2 24.5 kg/m2 [facility] (BMI) [Ratio] Medical [facility] Patient Treatment Plan of Care Planned Activity Planned Date Details Description Data Source (s) Metformin hydrochloride 1000 [facility] Medical MG / sitagliptin 50 MG Oral Center Tablet [Janumet] atorvastatin 40 MG Oral [facility] Tablet Center Amlodipine 5 MG / Benazepril [facility] Medical hydrochloride [address] Capsule olopatadine 1 MG/ML [facility] Ophthalmic Solution [place] 24 HR metoprolol succinate S [facility] Medical 50 MG Extended Release Oral Center Tablet Hydralazine Hydrochloride 50 [place] [facility] MG Oral Tablet Center glimepiride 4 MG Oral Tablet [facility] Bisacodyl 5 MG Delayed [facility] Medical Release Oral Tablet Center Aspirin 81 MG Delayed [facility] Medical Release Oral Tablet Center Acetaminophen 325 MG / [facility] Oxycodone Hydrochloride 5 MG Center Oral Tablet POLYETHYLENE GLYCOL 3350 142 [facility] Medical MG/ML Oral Solution Center Docusate Sodium 50 MG / [facility] sennoside, LONGTERM 8.6 MG Oral Center Tablet Sodium Phosphate, Dibasic [facility] 59.3 MG/ML / Sodium Center Phosphate, Monobasic 161 MG/ML [facility] Acetaminophen 325 MG / [facility] Oxycodone Hydrochloride 5 MG Center Oral Tablet Docusate Sodium 50 MG / [facility] sennosides, LONGTERM 8.6 MG Oral Center Tablet Sodium Phosphate, Dibasic [facility] 59.3 MG/ML / Sodium Center Phosphate, Monobasic 161 MG/ML Enema Metformin hydrochloride 1000 [facility] Medical MG / sitagliptin 50 MG Oral Center Tablet [Janumet] POLYETHYLENE GLYCOL 3350 142 [facility] MG/ML Oral Solution Center olopatadine 1 MG/ML [facility] Ophthalmic Solution [place] 24 HR metoprolol succinate S [facility] 50 MG Extended Release Oral Center Tablet Hydralazine Hydrochloride 50 [facility] MG Oral Tablet Center glimepiride 4 MG Oral Tablet [facility] Bisacodyl 5 MG Delayed [facility] Medical Release Oral Tablet Center atorvastatin 40 MG Oral [facility] Tablet Center Aspirin 81 MG Delayed [facility] Medical Release Oral Tablet Center Amlodipine 5 MG / Benazepril [facility] hydrochloride [address] Capsule
[2020-04-04] MEDS ORDERED: SODIUM CHLORIDE 250 ML IV ONE (10:00)
[2020-04-04] MEDS ORDERED: DEXAMETHASONE 4 MG TABLET (FP) PO ONE (10:00)
[2020-04-04] MEDS ORDERED: BORTEZOMIB (VELCADE) 2.5 MG/ML SUB-Q INJECTION SQ ONE (10:00)
[2020-04-04] MEDS ORDERED: amLODIPine BESYLATE 5 MG TABLET (FP) PO ONE (12:45)
[2020-04-04] MEDS ORDERED: FUROSEMIDE 20 MG TABLET (FP) PO ONE (14:00)
[2020-04-04 14:07] LABS: BASO % 0.5 % (0-2.0); EOS % 1.5 % (0-4.5); HEMOGLOBIN 9.2 GM/dL (10.7-15.3); LYMPH % 13.9 % (8-40); MCH 30.3 pg (25.7-33.7); MCHC 32.7 g/dl (32.0-36.0); MEAN CELL VOLUME 92.5 fl (80-96); MEAN PLT VOLUME 8.4 fl (7.5-11.1); MONO % 14.5 % (3.8-10.2); NEUT % 69.6 % (42.8-82.8); PLATELET COUNT 182 K/MM3 (134-434); RBC 3.03 M/mm3 (3.60-5.2); RDW 16.3 % (11.6-15.6); WHITE BLOOD COUNT 8.3 K/mm3 (4.0-10.0)
[2020-04-04 14:27] LABS: ALBUMIN 3.2 g/dl (3.4-5.0); BILIRUBIN,DIRECT 0.1 mg/dL (0.0-0.2); BILIRUBIN,TOTAL 0.3 mg/dL (0.2-1); BLOOD UREA NITROGEN 18.7 mg/dL (7-18); CALCIUM 8.4 mg/dL (8.5-10.1); MAGNESIUM 1.9 mg/dL (1.8-2.4); POTASSIUM 3.6 mmol/L (3.5-5.1); TOT PROT 6.4 g/dl (6.4-8.2); URIC ACID 4.7 mg/dL (2.6-7.2)
[2020-04-04] MEDS ORDERED: oxyCODONE HCL 5 MG TABLET PO ONE (14:30)
[2020-04-04 14:38] VITALS: TEMP 98.2
[2020-04-04 16:53] VITALS: BP 137/62; PULSE 71
== END 2020-04-04 16:10 | disposition home or self-care (01) ==
LOC: JONCCHEMO 07:22
PROVIDERS: ATTEND Internal Medicine Hematology & Oncology
PROC: 3E01305 Introduction of Other Antineoplastic into Subcutaneous Tissue, Percutaneous Approach (ICD-10-PCS; principal; 2020-04-04)
PROC: 3E033GC Introduction of Other Therapeutic Substance into Peripheral Vein, Percutaneous Approach (ICD-10-PCS; 2020-04-04)
DX: Z51.11 Encounter for antineoplastic chemotherapy (principal); C90.00 Multiple myeloma not having achieved remission
CPT/HCPCS: 36415; 80048; 80076; 83615; 83735; 84550; 85025; 96360; 96401; J9041

== ENCOUNTER 2020-04-11 07:35 | Day surgery (SDC) | payer OTHER, BC ==
--- OUTSIDE RECORDS SUMMARY | 2020-04-11 07:44 | XMS ---
:1950 [facility] Providers Name Role Phone SHANITA [...] is protected by Article 27-F of the [place] State Public Health law. If you continue you may haveaccess to information: Regarding HIV / AIDS; Provided by facilities licensed or operated by the [facility] of Mental Health; or Provided by the [facility] Office for People With Developmental Disabilities. If such information is present, then the following [facility] mandated warning applies: This information has been [...] law may result in a fine or retirement sentence or both. A general authorization for the release of medical or other information is NOT sufficient authorization for further disclosure. Encounters Encounter Providers Location Date Indications Data Source(s ) Inpatient Attender: SHANITA CARPENTER 10/06/2019 [facility] 01:30:00 PM EDT [facility] AAttender: STAFF ED - 10/20/2019 STAFF 05:15:00 PM EDT PHYSICIANAdmitter: SHANITA DIEHL AReferrer: SHANITA DIEHL A Patient discharged. Inpatient Attender: Solomon SahaHAL5 05/18/2019 04:44:00 [facility] MDAttender: STAFF ED STAFF PM EST - 05/23/2019 [facility] PHYSICIANAdmitter: Solomon 04:18:00 PM [facility] Peter MDReferrer: Solomon Green MD Patient discharged. Immunizations Vaccine Date Status Description Data Source(s) New in 2011. IIV4 05/23/2019 completed [facility] 03:31:00 PM EST Center pneumococcal 05/20/2019 completed [facility] M edical polysaccharide PPV23 11:33:00 AM EST [facility] er Medications Medication Brand Start Product Dose Route Administrative Pharmacy [facility] Indications Reaction Description Data Name Date Form Instructions Instructions Source(s) Acetaminoph oxyCOD 1 complet [facility] en 325 MG / ONE-ac [facility] Oxycodone etamin Medical Hydrochlori ophen Center de [...] MG / ocusat Medical sennosides, e Center HALF-WAY 8.6 MG sodium Oral Tablet 8.6 sennosides- [...] MG / ocusat Medical sennosides, e Center HALF-WAY 8.6 MG sodium Oral Tablet 8.6 sennosides- [...] d By: mg Tablet, Stephe Ordered By: estefnaia Cade, , MDDirection MDDire s: 1 tablet [...] name Policy type Policy ID Covered Covered democrat's Policy P augustina / Coverage democrat ID relationship to [facility] ormation type [place] BLUE CROSS [id number] SP [id number] SUPP PLAN MEDICARE [id number] SP [id number] [id number] BC PPO [id number] SP [id number] BLUE CROSS [id number] SP [id number] SUPP PLAN M [id number] 01 [id number] M [id number] 01 [id number] BLUE CROSS O [id number] 01 [id number] BLUE CROSS O [id number] 01 [id number] M [id number] 01 [id number] M [id number] 01 [id number] [id number] MEDICARE [id number] SP [id number] [id number] BC PPO [id number] SP [id number] BLUE CROSS O [id number] 01 [id number] SECONDARY M [id number] 01 [id number] A MEDICARE [id number] SP [id number] A Problems, Conditions, and Diagnoses Code Display Name Description Problem Type Effective Data Dates Source(s) D64.9 Anemia, ANEMIA, Diagnosis 10/20/2019 [facility] unspecified UNSPECIFIED 05:15:00 PM Medical EDT Center E78.5 Hyperlipidemia, HYPERLIPIDEMIA, Diagnosis 10/20/2019 [facility] unspecified UNSPECIFIED 05:15:00 PM Medical EDT Center E87.6 Hypokalemia HYPOKALEMIA Diagnosis 10/20/2019 [facility] 05:15:00 PM Medical EDT Center E11.65 Type 2 diabetes TYPE 2 DIABETES Diagnosis 10/20/2019 Anandadd[facility] Castillos mellitus with MELLITUS WITH 05:15:00 PM Medical hyperglycemia HYPERGLYCEMIA EDT Center J96.01 Acute respiratory ACUTE RESPIRATORY Diagnosis 10/20/2019 [facility] failure with FAILURE WITH 05:15:00 PM Medical hypoxia HYPOXIA EDT Center J12.89 Other viral OTHER VIRAL Diagnosis 10/20/2019 [facility] pneumonia PNEUMONIA 05:15:00 PM Medical EDT Center U07.1 COVID-19 ACUTE COVID-19 ACUTE Diagnosis 10/20/2019 [facility] RESPIRATORY RESPIRATORY 05:15:00 PM Medical DISEASE DISEASE EDT Center Z79.84 group home PENITENTIARY Diagnosis 10/20/2019 [facility] (current) use of [...] I16.0 Hypertensive HYPERTENSIVE Diagnosis 05/23/2019 [facility] urgency URGENCY 04:18:00 PM Medical EST [...] FX fracture Results ID Date Data Source [id number] 01/19/2020 08:00:00 PM EDT [facility] Name Value Range Interpretation Description Data Sup porting Code Source(s) Document(s ) SARS [facility] coronavirus 2 RNA This lab was ordered by [facility] and reported by [facility]. ID Date Data Source [id number] 01/03/2020 10:35:00 AM EDT [facility] Name Value Range Interpretation Description Data Sup porting Code Source(s) Document(s ) SARS [facility] CORONAVIRUS 2 RNA This lab was ordered by [facility] and reported by [facility]. ID Date Data Source [id number] 12/27/2019 12:00:00 AM EDT [facility] Name Value Range Interpretation Code Description Data Debra rce(s) Supporting Document(s ) 2019-nCoV [facility] RNA XXX TOM+probe- Imp This lab was ordered by [facility] and reported by [employer]. ID Date Data Source [id number] 12/06/2019 12:00:00 AM EDT [facility] Name Value Range Interpretation Code Description Data Debra rce(s) Supporting Document(s ) 2019-nCoV [facility] RNA XXX TOM+probe- Imp This lab was ordered by [facility] and reported by [facility] by [employer] ID Date Data Source Liver 10/19/2019 06:58:00 AM EDT [facility] Profile.[id number] Name Value Range Interpretation Description Data Sup [...] s"> (3.5-5.0 G/DL)</content> ID Date Data Source HematologyRou.[id number] 10/19/2019 06:58:00 AM EDT [facility] 0400 Name Value Range Interpretation [...] (0.0 KCUMM)</content > ID Date Data Source GFR(Creatinine).[id number] 10/19/2019 06:58:00 AM EDT [facility] 0-0400 Name Value Range Interpretation Code Description Data Debra rce(s) Supporting Document(s ) UNK > 60 <content [facility] styleCode="Bold"> Medical Cent er EGFR </content>70 GFR<content styleCode="Italic s"> (> 60 GFR)</content> ID Date Data Source MROUTINECCDA.[id number] 10/19/2019 06:58:00 AM EDT [facility] -0400 Name Value Range Interpretation Description Data Sup porting Code Source(s) Document(s ) Ferritin 7-264 <content [facility] [Mass/volume] in styleCode="Bold [facility] Serum or Plasma ">Ferritin Medical </content>245 Center NG/ML<content styleCode="Ital ics"> (7-264 NG/ML)</content > UNK >= 1.0 Below low normal <content [facility] styleCode="Bold Lucrecia ">AG Ratio Medical </content>0.9 Center L<content styleCode="Ital ics"> (>= 1.0 )</content> UNK 2.3-3.5 <content [facility] styleCode="Bold Lucrecia ">Globulin Medical </content>3.4 Center G/DL<content styleCode="Ital ics"> (2.3-3.5 G/DL)</content> Protein 6.3-8.2 <content [facility] [Mass/volume] in styleCode="Bold [facility] Serum or Plasma ">Total Protein Medical </content>6.6 Center G/DL<content styleCode="Ital ics"> (6.3-8.2 G/DL)</content> Lactate 316-618 <content [facility] dehydrogenase styleCode="Gissel [facility] [Enzymatic ">Lactate Medical activity/volume] Dehydrogenase Center in Serum or (LDH) Plasma by </content>379 Pyruvate to IU/L<content lactate reaction styleCode="Ital ics"> (316-618 IU/L)</content> ID Date Data Source [facility].[id number] 10/19/2019 06:58:00 AM EDT [facility] Name Value Range Interpretation Description [...] Data Source Liver 10/17/2019 07:30:00 AM EDT [facility] Profile.[id number] Name Value Range Interpretation Description Data Sup [...] s"> (3.5-5.0 G/DL)</content> ID Date Data Source HematologyRou.[id number] 10/17/2019 07:30:00 AM EDT [facility] 0400 Name Value Range Interpretation [...] ics"> (0 /100)</content> ID Date Data Source GFR(Creatinine).[id number] 10/17/2019 07:30:00 AM EDT [facility] 0-0400 Name Value Range Interpretation Code Description Data Debra rce(s) Supporting Document(s ) UNK > 60 <content [facility] styleCode="Bold"> Medical Cent er EGFR </content>79 GFR<content styleCode="Italic s"> (> 60 GFR)</content> ID Date Data Source Coagulation 10/17/2019 07:30:[facility] Rout.[id number] EDT Name Value Range Interpretation Code Description Data Debra rce(s) Supporting Document(s ) UNK < 500 Above upper panic <content [facility] limits styleCode="Bold"> Medical Cent er D-Dimer </content><conten t styleCode="Bold"> 2112 ngFEU HH</content><cont ent styleCode="Italic s"> (< 500 ngFEU)</content> ID Date Data Source CHMROUTINECCDA.[id number] 10/17/2019 07:30:00 AM EDT [facility] -0400 Name Value Range Interpretation [...] (1.6-2.3 MG/DL)</conten t> ID Date Data Source [facility].[id number] 10/17/2019 07:30:00 AM EDT [facility] Name Value Range Interpretation Description Data Sup porting Code Source(s) Document(s ) Potassium 3.5-5.3 <content [facility] [Moles/volume] in styleCode="Bold"> [facility] Serum or Plasma Potassium Medical </content>4.0 Center MEQ/L<content styleCode="Italic s"> (3.5-5.3 MEQ/L)</content> Chloride 98-107 Below low <content [facility] [Moles/volume] in normal styleCode="Bold"> [facility] Serum or Plasma Chloride Medical </content>95 Center MEQ/L L<content styleCode="Italic s"> (98-107 MEQ/L)</content> Sodium 137-145 <content [facility] [Moles/volume] in styleCode="Bold"> [facility] Serum or Plasma Sodium Medical </content>138 [...] Data Source Liver 10/16/2019 06:05:00 AM EDT [facility] Profile.[id number] Name Value Range Interpretation Description Data Sup [...] s"> (3.5-5.0 G/DL)</content> ID Date Data Source HematologyRou.[id number] 10/16/2019 06:05:00 AM EDT [facility] 0400 Name Value Range Interpretation Description Data Sup porting Code Source(s) Document(s ) Hematocrit 36.0-46. Below low normal <content [facility] [Volume 0 styleCode="Bold [facility] Fraction] of ">Hematocrit Medical Blood by [...] ics"> (NORMAL )</content> ID Date Data Source GFR(Creatinine).[id number] 10/16/2019 06:05:00 AM EDT [facility] 0-0400 Name Value Range Interpretation Code Description Data Debra rce(s) Supporting Document(s ) UNK > 60 <content [facility] styleCode="Bold"> Medical Cent er EGFR </content>79 GFR<content styleCode="Italic s"> (> 60 GFR)</content> ID Date Data Source CHMROUTINECCDA.[id number] 10/16/2019 06:05:00 AM EDT [facility] -0400 Name Value Range Interpretation Description Data Sup porting Code Source(s) Document(s ) UNK 2.3-3.5 <content [facility] styleCode="Bold Medical ">Globulin Center </content>3.0 G/DL<content styleCode="Ital ics"> (2.3-3.5 G/DL)</content> UNK >= 1.0 <content [facility] styleCode="Bold Medical ">AG Ratio Center </content>1.0 <content styleCode="Ital ics"> (>= 1.0 )</content> Protein 6.3-8.2 Below low normal <content [facility] [Mass/volum styleCode="Bold Medical e] in Serum ">Total Protein Center or Plasma </content>6.0 G/DL L<content styleCode="Ital ics"> (6.3-8.2 G/DL)</content> ID Date Data Source [employer].[id number] 10/16/2019 06:05:00 AM EDT [facility] -0400 Name Value Range Interpretation Description Data Sup porting Code Source(s) Document(s ) Troponin < 0.034 <content [facility] I.cardiac styleCode="Bold [facility] [Mass/volume ">Troponin I Medical ] in Serum </content>< Center or Plasma 0.012 NG/ML<content styleCode="Ital ics"> (< 0.034 NG/ML)</content > ID Date Data Source BMP.[id number] 10/16/2019 06:05:00 AM EDT [facility] Name Value Range Interpretation Description Data Sup porting Code Source(s) Document(s ) Chloride 98-107 Below low <content [facility] [Moles/volume] in normal styleCode="Bold"> [facility] Serum or Plasma Chloride Medical </content>94 [...] s"> (3.5-5.0 G/DL)</content> ID Date Data Source HematologyRou.[id number] 10/13/2019 05:35:00 AM EDT [facility] 0400 Name Value Range Interpretation Description [...] /100)</content> UNK NORMAL <content [facility] styleCode="Bold Lu[facility]cia ">[facility] </content>SLIGH Center T <content styleCode="Ital [...] ics"> (2-9 %)</content> ID Date Data Source CHMROUTINECCDA.[id number] 10/12/2019 01:35:00 PM EDT [facility] -0400 Name Value Range Interpretation Description Data Sup porting Code Source(s) Document(s ) Lactate 0.7-2.0 Above upper panic <content [facility] [Mass/volum limits styleCode="Bold Medical e] in Serum ">Lactic Acid Center or Plasma </content><cont ent styleCode="Bold ">3.6 MMOLL HH</content><co ntent styleCode="Ital ics"> (0.7-2.0 MMOLL)</content > ID Date Data Source HematologySpeci.[id number] 10/12/2019 01:28:00 PM EDT [facility] 0-0400 Name Value Range Interpretation Description Data Sup porting Code Source(s) Document(s ) C reactive < 3.0 Above high normal <content [facility] hs protein styleCode="Bold Medical [Mass/volume ">C-Reactive Center ] in Serum Protein or Plasma </content>> 15.0 MG/L H<content styleCode="Ital ics"> (< 3.0 MG/L)</content> ID Date Data Source CHMROUTINECCDA.[id number] 10/12/2019 01:28:00 PM EDT [facility] -0400 Name Value Range Interpretation [...] Data Source Liver 10/11/2019 05:45:00 AM EDT [facility] Profile.[id number] Name Value Range Interpretation Description Data Sup [...] (3.5-5.0 G/DL)</content> Alkaline 38-126 Above high <content [facility] phosphatase normal styleCode="Bold"> Lucre[facility] [Enzymatic Alkaline Medical activity/volume] Phosphatase (ALP) Cente r in Serum or Plasma </content>262 IU/L H<content styleCode="Italic s"> (38-126 IU/L)</content> Bilirubin.total 0.2-1.3 <content [facility] [Mass/volume] in styleCode="Bold"> Abiel hs Serum or Plasma Bilirubin Total Medical </content>0.9 Center MG/DL<content styleCode="Italic s"> (0.2-1.3 MG/DL)</content> ID Date Data Source GFR(Creatinine).[id number] 10/11/2019 05:45:00 AM EDT [facility] 0-0400 Name Value Range Interpretation Code Description Data Debra rce(s) Supporting Document(s ) UNK > 60 <content [facility] styleCode="Bold"> Medical Cent er EGFR </content>79 GFR<content styleCode="Italic s"> (> 60 GFR)</content> ID Date Data Source [facility].[id number] 10/11/2019 05:45:00 AM EDT [facility] Name Value Range Interpretation Description Data Sup porting Code Source(s) Document(s ) Sodium 137-145 <content [facility] [Moles/volume] in styleCode="Bold"> [facility] Serum or Plasma Sodium Medical </content>137 Center MEQ/L<content styleCode="Italic s"> (137-145 MEQ/L)</content> Potassium 3.5-5.3 <content [facility] [Moles/volume] in styleCode="Bold"> [facility] Serum or Plasma Potassium Medical </content>3.7 Center MEQ/L<content styleCode="Italic s"> (3.5-5.3 MEQ/L)</content> Chloride 98-107 <content [facility] [Moles/volume] in styleCode="Bold"> [facility] Serum or Plasma Chloride Medical </content>98 [...] s"> (3.5-5.0 G/DL)</content> ID Date Data Source HematologyRou.[id number] 10/11/2019 05:10:00 AM EDT [facility] 0400 Name Value Range Interpretation Description [...] Date Data Source Coagulation 10/11/2019 05:10:00 AM [facility] ical Center Rout.[id number] EDT Name Value Range Interpretation Code Description Data Debra rce(s) Supporting Document(s ) UNK < 500 Above upper panic <content [facility] limits styleCode="Bold"> Medical Cent er D-Dimer </content><conten t styleCode="Bold"> 5198 ngFEU HH</content><cont ent styleCode="Italic s"> (< 500 ngFEU)</content> ID Date Data Source HematologySpeci.[id number] 10/10/2019 05:35:00 PM [facility] Name Value Range Interpretation Description Data Sup porting Code Source(s) Document(s ) C reactive < 3.0 Above high normal <content [facility] protein styleCode="Bold Medical [Mass/volume ">C-Reactive Center ] in Serum Protein or Plasma </content>> 15.0 MG/L H<content styleCode="Ital ics"> (< 3.0 MG/L)</content> ID Date Data Source Liver 10/09/2019 05:10:00 AM EDT [facility] Profile.[id number] Name Value Range Interpretation Description Data Sup [...] s"> (38-126 IU/L)</content> ID Date Data Source GFR(Creatinine).[id number] 10/09/2019 05:10:00 AM EDT [facility] 0-0400 Name Value Range Interpretation Code Description Data Debra rce(s) Supporting Document(s ) UNK > 60 <content [facility] styleCode="Bold"> Medical Cent er EGFR </content>70 GFR<content styleCode="Italic s"> (> 60 GFR)</content> ID Date Data Source BMP.[id number] 10/09/2019 05:10:00 AM EDT [facility] Name Value Range Interpretation Description [...] G/DL)</content> Alkaline 38-126 <content [facility] phosphatase styleCode="Bold"> [facility] [Enzymatic Alkaline Medical activity/volume] Phosphatase (ALP) Cente r in Serum or Plasma </content>99 IU/L<content styleCode="Italic s"> (38-126 IU/L)</content> ID Date Data Source HematologySpeci.[id number] 10/08/2019 04:14:00 AM EDT [facility] 0-0400 Name Value Range Interpretation Description Data Sup porting Code Source(s) Document(s ) C reactive < 3.0 Above high normal <content [facility] protein styleCode="Bold Medical [Mass/volume ">C-Reactive Center ] in Serum Protein or Plasma </content>> 15.0 MG/L H<content styleCode="Ital ics"> (< 3.0 MG/L)</content> ID Date Data Source CardiacMarkers.[id number] 10/08/2019 04:14:00 AM EDT [facility] -0400 Name Value Range Interpretation Description Data Sup porting Code Source(s) Document(s ) Troponin < 0.034 Above upper panic <content [facility] I.cardiac limits styleCode="Bold [facility] [Mass/volume ">Troponin I Medical ] in Serum </content><cont Center or Plasma ent styleCode="Bold ">0.037 NG/ML HH</content><co ntent styleCode="Ital ics"> (< 0.034 NG/ML)</content > ID Date Data Source HematologyRou.[id number] 10/07/2019 04:10:00 AM EDT [facility] 0400 Name Value Range Interpretation [...] (0-0.1 KCUMM)</content > ID Date Data Source GFR(Creatinine).[id number] 10/07/2019 04:10:00 AM EDT [facility] 0-0400 Name Value Range Interpretation Code Description Data Debra rce(s) Supporting Document(s ) UNK > 60 <content [facility] styleCode="Bold"> Medical Cent er EGFR </content>79 GFR<content styleCode="Italic s"> (> 60 GFR)</content> ID Date Data Source BMP.[id number] 10/07/2019 04:10:00 AM EDT [facility] [...] (8.4-10.2 MG/DL)</conten t> ID Date Data Source MROUTINECCDA.[id number] 10/06/2019 07:30:00 PM EDT [facility] -0400 Name Value Range Interpretation Code Description Data Debra rce(s) Supporting Document(s ) UNK 0.7-2.0 <content [facility] styleCode="Bold" Medical Cente r >Lactic Acid 4hr </content>0.9 MMOLL<content styleCode="Itali cs"> (0.7-2.0 MMOLL)</content> ID Date Data Source Microbiology.[id number] 10/06/2019 04:20:00 PM EDT [facility] 400 Name Value Range Interpretation Code Description Data Debra rce(s) Supporting Document(s ) UNK <item><content [facility] styleCode="Bold"> Medical Cent er Culture Report </content>
<t able><tbody><tr>< td>Specimen Number:</td><td>[id number]</td></tr ><tr><td>Sample Collection Date/Time: </td><td>10/06/2019 4:20 PM</td></tr><tr>< td>Specimen Source:</td><td>B LOOD</td></tr><tr ><td>Blood Culture:</td><td> Collection Plate Date: 10/06/2019 16:21 </td></tr><tr><td >Culture Status:</td><td>F inal </td></tr><tr><td >Culture Report:</td><td>N O GROWTH 5 DAYS </td></tr></tbody ></table></item> UNK <item[facility] er Culture Status </content>
<t able><tbody><tr>< td>Specimen Number:</td><td>[id number]</td></tr ><tr><td>Sample Collection Date/Time: </td><td>10/06/2019 4:20 PM</td></tr><tr>< td>Specimen Source:</td><td>B LOOD</td></tr><tr ><td>Blood Culture:</td><td> Collection Plate Date: 10/06/2019 16:21 </td></tr><tr><td >Culture Report:</td><td>N O GROWTH 5 DAYS </td></tr><tr><td >Culture Status:</td><td>F inal </td></tr></tbody ></table></item> ID Date Data Source Microbiology.[id number] 10/06/2019 04:00:00 PM EDT [facility] 400 Name Value Range Interpretation Code Description Data Debra rce(s) Supporting Document(s ) UNK <item><content [facility] styleCode="Bold"> Medical [facility] er Culture Status </content>
<t able><tbody><tr>< td>Specimen Number:</td><td>[id number]</td></tr ><tr><td>Sample Collection Date/Time: </td><td>10/06/2019 4:00 PM</td></tr><tr>< td>Specimen Source:</td><td>B LOOD</td></tr><tr ><td>Culture Report:</td><td>N O GROWTH 5 DAYS </td></tr><tr><td >Culture Status:</td><td>F inal </td></tr><tr><td >Blood Culture:</td><td> Collection Plate Date: 10/06/2019 16:12 </td></tr></tbody ></table></item> UNK <item><content [facility] styleCode="Bold"> Medical Cent er Culture Report </content>
<t able><tbody><tr>< td>Specimen Number:</td><td>[id number]</td></tr ><tr><td>Sample Collection Date/Time: </td><td>10/06/2019 4:00 PM</td></tr><tr>< td>Specimen Source:</td><td>B LOOD</td></tr><tr ><td>Blood Culture:</td><td> Collection Plate Date: 10/06/2019 16:12 </td></tr><tr><td >Culture Status:</td><td>F inal </td></tr><tr><td >Culture Report:</td><td>N O GROWTH 5 DAYS </td></tr></tbody ></table></item> ID Date Data Source HematologySpeci.[id number] 10/06/2019 04:00:00 PM EDT [facility] 0-0400 Name Value Range Interpretation Description Data Sup porting Code Source(s) Document(s ) C reactive < 3.0 Above high normal <content [facility] hs protein styleCode="Bold Medical [Mass/volume ">C-Reactive Center ] in Serum Protein or Plasma </content>> 15.0 MG/L H<content styleCode="Ital ics"> (< 3.0 MG/L)</content> ID Date Data Source Coagulation 10/06/2019 04:00:00 PM [facility] Rout.[id number] EDT Name Value Range Interpretation Description Data Sup porting Code Source(s) Document(s ) UNK 9.0-13.0 <content [facility] styleCode="Layla Lucrecia d">[facility] Medical </content>12.6 Center SEC<content styleCode="Christina lics"> (9.0-13.0 SEC)</content> INR in 0.80-1.2 <content [facility] Platelet poor 0 styleCode="[facility] plasma by d">INR Medical Coagulation </content>1.14 Center assay #<content styleCode="Christina lics"> (0.80-1.20 #)</content> ID Date Data Source CardiacMarkers.[id number] 10/06/2019 04:00:00 PM EDT [facility] -0400 Name Value Range Interpretation Description Data Sup porting Code Source(s) Document(s ) Troponin < 0.034 <content [facility] I.cardiac styleCode="Bold [facility] [Mass/volume ">Troponin I Medical ] in Serum </content>0.027 Center or Plasma NG/ML<content styleCode="Ital ics"> (< 0.034 NG/ML)</content > ID Date Data Source Liver 10/06/2019 04:00:00 PM EDT [facility] Profile.[id number] Name Value Range Interpretation Description Data Sup [...] s"> (3.5-5.0 G/DL)</content> ID Date Data Source HematologyRou.[id number] 10/06/2019 04:00:00 PM EDT [facility] 0400 Name Value Range Interpretation Description [...] > Basophils 0.0-1.0 <content [facility] [#/volume] in styleCode="[facility] Blood by ">Basophil [...] ics"> (0 /100)</content> ID Date Data Source GFR(Creatinine).[id number] 10/06/2019 04:00:00 PM EDT [facility] [facility] 0-0400 Name Value Range Interpretation Code Description Data Debra rce(s) Supporting Document(s ) UNK > 60 <content [facility] styleCode="Bold"> Medical Cent er EGFR </content>79 GFR<content styleCode="Italic s"> (> 60 GFR)</content> ID Date Data [id number]/06/2019 04:00:00 PM EDT [facility] -0400 Name Value Range Interpretation [...] ics"> (23-300 IU/L)</content> ID Date Data Source [facility].[id number] 10/06/2019 04:00:00 PM EDT [facility] Name Value Range Interpretation Description [...] MG/DL)</content> Alanine 7-30 <content [facility] aminotransferase styleCode="Bold"> Abeil hs [Enzymatic Alanine Medical activity/volume] Aminotransferase Center in Serum or Plasma (ALT) </content>23 IU/L<content styleCode="Italic s"> (7-30 IU/L)</content> Albumin 3.5-5.0 <content Saint [Mass/volume] in styleCode="Bold"> Abiel hs Serum or Plasma Albumin Medical </content>3.7 Center G/DL<content styleCode="Italic s"> (3.5-5.0 G/DL)</content> ID Date Data Source HematologyRou.[id number] 05/23/2019 06:01:00 AM JOSEPH Seamus nt [facility] 0500 Name Value Range Interpretation Description [...] (0.0 KCUMM)</content > ID Date Data Source GFR(Creatinine).[id number] 05/23/2019 06:01:00 AM [facility] 0-0500 Name Value Range Interpretation Code Description Data Debra rce(s) Supporting Document(s ) UNK > 60 <content [facility] styleCode="Bold"> Medical Cent er EGFR </content>106 GFR<content styleCode="Italic s"> (> 60 GFR)</content> ID Date Data Source XIOMARAMRDORYS.[id number] 05/23/2019 06:01:00 AM [facility] -0500 Name Value Range Interpretation Description Data Sup porting Code Source(s) Document(s ) Magnesium 1.6-2.3 <content Saint [Mass/volume] styleCode="Layla Lucrecia in Serum or d">Magnesium Medical Plasma </content>2.0 Center MG/DL<content styleCode="Christina lics"> (1.6-2.3 MG/DL)</conten t> ID Date Data Source [facility].[id number] 05/23/2019 06:01:00 AM [facility] Name Value Range Interpretation Description Data [...] (> 60 GFR)</content> ID Date Data Source HematologyRou.[id number] 05/22/2019 06:12:[address] [facility] 0500 Name Value Range Interpretation Description [...] (130-400 KCUMM)</content > ID Date Data Source GFR(Creatinine).[id number] 05/22/2019 06:12:[address] [facility] 0-0500 Name Value Range Interpretation Code Description Data Debra rce(s) Supporting Document(s ) UNK > 60 <content [facility] styleCode="Bold"> Medical Cent er EGFR </content>106 GFR<content styleCode="Italic s"> (> 60 GFR)</content> ID Date Data Source XIOMARAMRDORYS.[id number] 05/22/2019 06:12:[address] [facility] -0500 Name Value Range Interpretation Description Data Sup porting Code Source(s) Document(s ) Magnesium 1.6-2.3 <content Saint [Mass/volume] styleCode="Layla Lucrecia in Serum or d">Magnesium Medical Plasma </content>2.1 Center MG/DL<content styleCode="Christina lics"> (1.6-2.3 MG/DL)</conten t> ID Date Data Source GREGG.[id number] 05/22/2019 06:12:00 AM EST [facility] Name Value Range Interpretation Description [...] Data Source Liver 05/21/2019 07:05:00 AM EST [facility] Profile.[id number] Name Value Range Interpretation Description Data Sup porting Code Source(s) Document(s ) Alanine 7-30 <content [facility] aminotransferase styleCode="Bold"> Abiel hs [Enzymatic Alanine Medical activity/volume] Aminotransferase Center in Serum or Plasma (ALT) </content>18 IU/L<content styleCode="Italic s"> (7-30 IU/L)</content> Aspartate 14-36 <content [facility] aminotransferase styleCode="Bold"> Abiel hs [Enzymatic Aspartate [...] s"> (0.2-1.3 MG/DL)</content> ID Date Data Source HematologyRou.[id number] 05/21/2019 07:05:00 AM JOSEPH Seamus [facility] 0500 Name Value Range Interpretation Description Data Sup porting Code Source(s) Document(s ) Hemoglobin 12.3-16. Below low normal <content Saint [Mass/volume] in 0 styleCode="Bold Lucrecia Blood ">Hemoglobin Medical </content>11.2 Center G/DL L<content styleCode="Ital ics"> (12.3-16.0 G/DL)</content> Erythrocytes 4.0-5.1 Below low normal <content Saint [#/volume] in styleCode="Bold [facility] Blood by ">Red Blood Medical Automated count Cell Count Center </content>3.88 MCUMM L<content styleCode="Ital ics"> (4.0-5.1 MCUMM)</content > Leukocytes 4.4-11.0 <content Saint [#/volume] in styleCode="Bold [facility] Blood by ">White Blood Medical Automated count Cell Count Center </content>10.73 KCUMM<content styleCode="Ital ics"> (4.4-11.0 KCUMM)</content > Erythrocyte mean 26.0-34. <content [facility] corpuscular 0 styleCode="Bold Lucreica hemoglobin ">Mean Medical [Entitic mass] Corposcular Center [...] Basophils 0.0-1.0 <content Saint [#/volume] in styleCode="Bold [facility] Blood by ">Basophil Medical Automated count [...] (0.0 KCUMM)</content > ID Date Data Source GFR(Creatinine).[id number] 05/21/2019 07:05:00 AM EST Seamus [facility] 0-0500 Name Value Range Interpretation Code Description Data Debra rce(s) Supporting Document(s ) UNK > 60 <content [facility] styleCode="Bold"> Medical Cent er EGFR </content>106 GFR<content styleCode="Italic s"> (> 60 GFR)</content> ID Date Data Source [facility].[id number] 05/21/2019 07:05:00 AM JOSEPH cee [facility] -0500 Name Value Range Interpretation Description [...] ics"> (6.3-8.2 G/DL)</content> ID Date Data Source [facility].[id number] 05/21/2019 07:05:00 AM JOSEPH Rose [facility] Name Value Range Interpretation Description [...] Data Source Liver 05/20/2019 05:56:00 AM EST [facility] Profile.[id number] Name Value Range Interpretation Description Data Sup [...] s"> (0.2-1.3 MG/DL)</content> ID Date Data Source HematologyRou.[id number] 05/20/2019 05:56:[address] [facility] 0500 Name Value Range Interpretation Description [...] low normal <content Saint [Volume 0 styleCode="Bold [facility] Fraction] of ">Hematocrit Medical Blood by [...] (0-0.1 KCUMM)</content > ID Date Data Source GFR(Creatinine).[id number] 05/20/2019 05:56:00 AM [facility] 0-0500 Name Value Range Interpretation Code Description Data Debra rce(s) Supporting Document(s ) UNK > 60 <content [facility] styleCode="Bold"> Medical Cent er EGFR </content>106 GFR<content styleCode="Italic s"> (> 60 GFR)</content> ID Date Data Source CHMROUTINECCDA.[id number] 05/20/2019 05:56:00 AM EST [facility] -0500 Name Value Range Interpretation [...] (1.6-2.3 MG/DL)</conten t> ID Date Data Source [facility].[id number] 05/20/2019 05:56:00 AM EST [facility] Name Value Range Interpretation Description Data Sup porting Code Source(s) Document(s ) Sodium 137-145 <content Saint [Moles/volume] in styleCode="Bold"> [facility] Serum or Plasma Sodium Medical </content>140 Center MEQ/L<content styleCode="Italic s"> (137-145 MEQ/L)</content> Potassium 3.5-5.3 <content Saint [Moles/volume] in styleCode="Bold"> [facility] Serum or Plasma Potassium Medical </content>3.5 [...] s"> (3.5-5.0 G/DL)</content> ID Date Data Source [facility].[id number] 05/19/2019 12:17:00 PM EST [facility] Name Value Range Interpretation Description Data Sup porting Code Source(s) Document(s ) Potassium 3.5-5.3 <content [facility] [Moles/volume styleCode="Layla Lucrecia ] in Serum or d">Potassium Medical Plasma </content>3.6 Center MEQ/L<content styleCode="Christina lics"> (3.5-5.3 MEQ/L)</conten t> ID Date Data Source Urinalysis.[id number] 05/19/2019 08:33:00 AM EST Seamus nt [facility] 0 Name Value Range Interpretation Description [...] by Test d">Urine Medical strip Specific Center Laura </content>1.02 0 <content styleCode="Christina lics"> (1.015-1.025 )</content> [...] lics"> (0-3 HPF)</content> ID Date Data Source Hormones.[id number] 05/19/2019 05:40:00 AM JOSEPH Michel [facility] Name Value Range Interpretation Description Data Sup porting Code Source(s) Document(s ) Thyrotropin 0.465-4. <content Saint [Units/volume] 68 styleCode="Layla Lucrecia in Serum or d">Thyroid Medical Plasma by Stimulating Center Detection Hormone limit <= 0.05 </content>0.49 mIU/L 2 MIU/L<content styleCode="Christina lics"> (0.465-4.68 MIU/L)</conten t> ID Date Data Source HematologyRou.[id number] 05/19/2019 05:40:00 AM EST Seamus nt [facility] 0500 Name Value Range Interpretation Description [...] (0.0 KCUMM)</content > ID Date Data Source GFR(Creatinine).[id number] 05/19/2019 05:40:00 AM [employer] [facility] 0-0500 Name Value Range Interpretation Code Description Data Debra rce(s) Supporting Document(s ) UNK > 60 <content [facility] styleCode="Bold"> Medical Cent er EGFR </content>127 GFR<content styleCode="Italic s"> (> 60 GFR)</content> ID Date Data Source CHMROUTINECCDA.[id number] 05/19/2019 05:40:00 AM EST [facility] -0500 Name Value Range Interpretation [...] (1.6-2.3 MG/DL)</conten t> ID Date Data Source [facility].[id number] 05/19/2019 05:40:00 AM EST [facility] Name Value Range Interpretation Description [...] Data Source Liver 05/18/2019 08:00:00 PM EST [facility] Profile.[id number] Name Value Range Interpretation Description Data Sup [...] Date Data Source Coagulation 05/18/2019 08:00:00 PM [facility] Rout.[id number] EST Name Value Range Interpretation Description Data [...] cs"> (0.80-1.20 #)</content> ID Date Data Source [employer].[id number] 05/18/2019 08:00:00 PM EST [facility] -0500 Name Value Range Interpretation Description Data Sup porting Code Source(s) Document(s ) Creatine 30-135 <content [facility] Lucrecia kinase styleCode="Bold Medical [Enzymatic ">CK Center activity/vol </content>59 ume] in IU/L<content Serum or styleCode="Ital Plasma ics"> (30-135 IU/L)</content> ID Date Data Source HematologyRou.[id number] 05/18/2019 08:00:00 PM EST [facility] 0500 Name Value Range Interpretation [...] Basophils 0.0-1.0 <content Saint [#/volume] in styleCode="Bold [facility] Blood by ">Basophil Medical Automated count [...] (0.0 KCUMM)</content > ID Date Data Source GFR(Creatinine).[id number] 05/18/2019 08:00:00 PM EST Seamus [facility] 0-0500 Name Value Range Interpretation Code Description Data Debra rce(s) Supporting Document(s ) UNK > 60 <content [facility] styleCode="Bold"> Medical Cent er EGFR </content>127 GFR<content styleCode="Italic s"> (> 60 GFR)</content> ID Date Data Source [id number] 05/18/2019 08:00:00 PM JOSEPH [facility] -0500 Name Value Range Interpretation Description Data Sup porting Code Source(s) Document(s ) Protein 6.3-8.2 <content Saint Lucrecia [Mass/volum styleCode="Bold Medical e] in Serum ">Total Protein Center or Plasma </content>6.8 G/DL<content styleCode="Ital ics"> (6.3-8.2 G/DL)</content> UNK >= 1.0 <content [facility] styleCode="Bold Medical ">AG Ratio Center </content>1.3 <content styleCode="Ital ics"> (>= 1.0 )</content> UNK 2.3-3.5 <content [facility] styleCode="Bold Medical ">Globulin Center </content>2.9 G/DL<content styleCode="Ital ics"> (2.3-3.5 G/DL)</content> ID Date Data Source [facility].[id number] 05/18/2019 08:00:00 PM EST [facility] Name Value Range Interpretation Description Data Sup porting Code Source(s) Document(s ) Potassium 3.5-5.3 Below low <content Saint [Moles/volume] in normal styleCode="Bold"> [facility] Serum or Plasma Potassium Medical </content>3.2 [...] 05/18/2019 Denies Ever completed Denies Ever Smoked [place] 04:52:00 PM EST [facility] Medical C enter Vital Signs ID Date Data Source UNK Name Value Range Interpretation Code Description Data Source(s) Body temperature 36.554291 36.182385 [facility] Respiratory rate 18 /min 18 /min [facility] Heart rate 64 /min 64 /min [facility] Diastolic blood 64 mm[Hg] 64 mm[Hg] [facility] Medical [place] Systolic blood 157 mm[Hg] 157 mm[Hg] [facility] Body temperature 36.436210 36.567645 [facility] Respiratory rate 18 /min 18 /min [facility] Heart rate 79 /min 79 /min [facility] Diastolic blood 81 mm[Hg] 81 mm[Hg] [facility] Medical [place] Systolic blood 129 mm[Hg] 129 mm[Hg] [facility] Body temperature 36.438601 36.844458 [facility] Respiratory rate 18 /min 18 /min [facility] Heart rate 75 /min 75 /min [facility] Diastolic blood 64 mm[Hg] 64 mm[Hg] [facility] Medical Center Systolic blood 134 mm[Hg] 134 mm[Hg] [facility] Oxygen saturation 96 % 96 % [facility] in [facility] blood [facility] by Pulse oximetry Body temperature 36.344529 36.744257 [facility] Respiratory rate 19 /min 19 /min [facility] Heart rate 85 /min 85 /min [facility] Diastolic blood 89 mm[Hg] 89 mm[Hg] [facility] Medical Center Systolic blood 198 mm[Hg] 198 mm[Hg] [facility] Medical [place] Body temperature 36.028239 36.892977 [facility] Respiratory rate 18 /min 18 /min [facility] Heart rate 73 /min 73 /min [facility] Diastolic blood 76 mm[Hg] 76 mm[Hg] [facility] Medical Center Systolic blood 130 mm[Hg] 130 mm[Hg] [facility] [place] Oxygen saturation 97 % 97 % [facility] in Arterial blood [facility] by Pulse oximetry Oxygen saturation 98 % 98 % [facility] in Arterial blood Medical Center by Pulse oximetry Oxygen saturation 94 % 94 % [facility] in Arterial blood Medical Center by Pulse oximetry Body weight 65.243121 kg 65.073144 kg [facility] Body height 162.407030 162.432312 cm [facility] Medical Center Body mass index 24.92 kg/m2 24.92 kg/m2 [facility] (BMI) [Ratio] Medical [address] Oxygen saturation 97 % 97 % [facility] in [facility] blood [facility] Center by Pulse oximetry Body weight 66.249052 kg 66.359021 kg [facility] Body temperature 37.940342 37.980310 [facility] Respiratory rate 19 /min 19 /min [facility] Oxygen saturation 94 % 94 % [facility] in [facility] by Pulse oximetry Heart rate 97 /min 97 /min [facility] Diastolic blood 78 mm[Hg] 78 mm[Hg] [facility] Systolic blood 157 mm[Hg] 157 mm[Hg] [facility] Body temperature 37.056316 37.277009 [facility] Respiratory rate 20 /min 20 /min [facility] Oxygen saturation 95 % 95 % [facility] in [facility] blood [facility] by Pulse oximetry Heart rate 113 /min 113 /min [facility] Diastolic blood 80 mm[Hg] 80 mm[Hg] [facility] Systolic blood 172 mm[Hg] 172 mm[Hg] [facility] Body temperature 37.288563 37.002617 [facility] Respiratory rate 20 /min 20 /min [facility] Oxygen saturation 93 % 93 % [facility] in [facility] blood [facility] by Pulse oximetry Heart rate 105 /min 105 /min [facility] Diastolic blood 80 mm[Hg] 80 mm[Hg] [facility] Systolic blood 165 mm[Hg] 165 mm[Hg] [facility] Body temperature 36.482056 36.384908 [facility] Respiratory rate 17 /min 17 /min [facility] Oxygen saturation 98 % 98 % [facility] in Arterial blood Medical Center by Pulse oximetry Heart rate 99 /min 99 /min [facility] Diastolic blood 76 mm[Hg] 76 mm[Hg] [facility] Medical Center Systolic blood 159 mm[Hg] 159 mm[Hg] [facility] Body temperature 37.732958 37.343969 [facility] Respiratory rate 24 /min 24 /min [facility] Oxygen saturation 93 % 93 % [facility] in Arterial blood [facility] Center by Pulse oximetry Heart rate 113 /min 113 /min [facility] Diastolic blood 86 mm[Hg] 86 mm[Hg] [facility] Systolic blood 156 mm[Hg] 156 mm[Hg] [facility] Body weight 69.109895 kg 69.940356 kg [facility] Body height 162.077395 162.150034 cm [facility] Body mass index 26.2 kg/m2 26.2 kg/m2 [facility] (BMI) [Ratio] [facility] [address] Body temperature 36.112513 36.088504 [facility] Respiratory rate 18 /min 18 /min [facility] Heart rate 67 /min 67 /min [facility] Diastolic blood 74 mm[Hg] 74 mm[Hg] [facility] Systolic blood 158 mm[Hg] 158 mm[Hg] [facility] Body weight 69.793300 kg 69.291868 kg [facility] Body height 162.084520 162.901643 cm [facility] Body mass index 26.30 kg/m2 26.30 kg/m2 [facility] (BMI) [Ratio] [facility] [address] Body temperature 36.425981 36.279916 [facility] Respiratory rate 18 /min 18 /min [facility] Oxygen saturation 97 % 97 % [facility] in [facility] blood [facility] by Pulse oximetry Heart rate 67 /min 67 /min [facility] Diastolic blood 81 mm[Hg] 81 mm[Hg] [facility] Systolic blood 152 mm[Hg] 152 mm[Hg] [facility] [place] Body temperature 36.699445 36.432884 [facility] Respiratory rate 18 /min 18 /min [facility] Heart rate 76 /min 76 /min [facility] Diastolic blood 70 mm[Hg] 70 mm[Hg] [facility] Medical Center Systolic blood 145 mm[Hg] 145 mm[Hg] [facility] Medical Center Heart rate 64 /min 64 /min [facility] Diastolic blood 80 mm[Hg] 80 mm[Hg] [facility] Medical Center Systolic blood 142 mm[Hg] 142 mm[Hg] [facility] Medical Center Body temperature 36.809639 36.005439 [facility] Respiratory rate 20 /min 20 /min [facility] Heart rate 65 /min 65 /min [facility] Diastolic blood 62 mm[Hg] 62 mm[Hg] [facility] Medical Center Systolic blood 160 mm[Hg] 160 mm[Hg] [facility] Medical [place] Body weight 69.637668 kg 69.914945 kg [facility] Body height 162.146934 162.186135 cm [facility] Medical [place] Body mass index 26.30 kg/m2 26.30 kg/m2 [facility] (BMI) [Ratio] Medical [facility] ter Body temperature 37.847037 37.935993 [facility] Respiratory rate 20 /min 20 /min [facility] Body temperature 36.269114 36.855118 [facility] Respiratory rate 18 /min 18 /min [facility] Heart rate 69 /min 69 /min [facility] Diastolic blood 70 mm[Hg] 70 mm[Hg] [facility] Medical Center Systolic blood 178 mm[Hg] 178 mm[Hg] [facility] Center Body temperature 36.169245 36.540919 [facility] Respiratory rate 16 /min 16 /min [facility] Heart rate 74 /min 74 /min [facility] Diastolic blood 86 mm[Hg] 86 mm[Hg] [facility] Medical Center Systolic blood 190 mm[Hg] 190 mm[Hg] [facility] Center Body temperature 36.067087 36.851997 [facility] Respiratory rate 20 /min 20 /min [facility] Heart rate 68 /min 68 /min [facility] Diastolic blood 86 mm[Hg] 86 mm[Hg] [facility] Medical Center Systolic blood 179 mm[Hg] 179 mm[Hg] [facility] Body weight 69.008684 kg 69.129065 kg [facility] Oxygen saturation 95 % 95 % [facility] blood [facility] Center by Pulse oximetry Body height 162.199549 162.061759 cm [facility] Body mass index 26.30 kg/m2 26.30 kg/m2 [facility] (BMI) [Ratio] [facility] [address] [facility] Body temperature 36.213614 36.089984 [facility] Respiratory rate 18 /min 18 /min [facility] Heart rate 69 /min 69 /min [facility] Diastolic blood 87 mm[Hg] 87 mm[Hg] [facility] Systolic blood 179 mm[Hg] 179 mm[Hg] [facility] Oxygen saturation 97 % 97 % [facility] Center by Pulse oximetry Body temperature 37.764597 37.894996 [facility] Respiratory rate 18 /min 18 /min [facility] Heart rate 76 /min 76 /min [facility] Diastolic blood 83 mm[Hg] 83 mm[Hg] [facility] Systolic blood 176 mm[Hg] 176 mm[Hg] [facility] Oxygen saturation 97 % 97 % [facility] blood [facility] Center by Pulse oximetry Body weight 65.142987 kg 65.228985 kg [facility] Oxygen saturation 97 % 97 % [facility] blood [facility] Center by Pulse oximetry Body height 162.498247 162.408437 cm [facility] Body mass index 24.5 kg/m2 24.5 kg/m2 [facility] (BMI) [Ratio] Medical [facility] Patient Treatment Plan of Care Planned Activity Planned Date Details Description Data Source (s) Metformin hydrochloride 1000 [facility] Medical MG / sitagliptin 50 MG Oral Center Tablet [Janumet] atorvastatin 40 MG Oral [facility] Tablet Center Amlodipine 5 MG / Benazepril [facility] Medical hydrochloride [address] Capsule olopatadine 1 MG/ML [facility] Ophthalmic Solution [place] 24 HR metoprolol succinate S [facility] Medical 50 MG Extended Release Oral Center Tablet Hydralazine Hydrochloride 50 [place] [facility] MG Oral Tablet Center glimepiride 4 MG Oral Tablet [facility] Bisacodyl 5 MG Delayed [facility] Medical Release Oral Tablet Center Aspirin 81 MG Delayed [facility] Medical Release Oral Tablet Center Acetaminophen 325 MG / [facility] Oxycodone Hydrochloride 5 MG Center Oral Tablet POLYETHYLENE GLYCOL 3350 142 [facility] Medical MG/ML Oral Solution Center Docusate Sodium 50 MG / [facility] sennoside, HALF-WAY 8.6 MG Oral Center Tablet Sodium Phosphate, Dibasic [facility] 59.3 MG/ML / Sodium Center Phosphate, Monobasic 161 MG/ML Enema Acetaminophen 325 MG / [facility] Oxycodone Hydrochloride 5 MG Center Oral Tablet Docusate Sodium 50 MG / [facility] sennosides, HALF-WAY 8.6 MG Oral Center Tablet Sodium Phosphate, Dibasic [facility] 59.3 MG/ML / Sodium Center Phosphate, Monobasic 161 MG/ML Enema Metformin hydrochloride 1000 [facility] Medical MG / sitagliptin 50 MG Oral Center Tablet [Janumet] POLYETHYLENE GLYCOL 3350 142 [facility] Medical MG/ML Oral Solution Center olopatadine 1 MG/ML [facility] Ophthalmic Solution [place] 24 HR metoprolol succinate S [facility] 50 MG Extended Release Oral Center Tablet Hydralazine Hydrochloride 50 [facility] MG Oral Tablet Center glimepiride 4 MG Oral Tablet [facility] Bisacodyl 5 MG Delayed [facility] Medical Release Oral Tablet Center atorvastatin 40 MG Oral [facility] Tablet Center Aspirin 81 MG Delayed [facility] Medical Release Oral Tablet Center Amlodipine 5 MG / Benazepril [facility] hydrochloride [address] Capsule
[2020-04-11] MEDS ORDERED: DEXAMETHASONE 4 MG TABLET (FP) PO ONE (10:00)
[2020-04-11] MEDS ORDERED: BORTEZOMIB (VELCADE) 2.5 MG/ML SUB-Q INJECTION SQ ONE (10:00)
[2020-04-11] MEDS ORDERED: SODIUM CHLORIDE 250 ML IV ONE (10:00)
[2020-04-11] MEDS ORDERED: oxyCODONE HCL 5 MG TABLET PO ONE (13:05)
[2020-04-11] MEDS ORDERED: amLODIPine BESYLATE 5 MG TABLET (FP) PO ONE (13:06)
[2020-04-11 14:31] LABS: BASO % 1.5 % (0-2.0); EOS % 0.8 % (0-4.5); HEMATOCRIT 27.8 % (32.4-45.2); HEMOGLOBIN 9.3 GM/dL (10.7-15.3); LYMPH % 9.3 % (8-40); MCH 30.9 pg (25.7-33.7); MCHC 33.3 g/dl (32.0-36.0); MEAN CELL VOLUME 92.6 fl (80-96); MEAN PLT VOLUME 8.4 fl (7.5-11.1); NEUT % 74.4 % (42.8-82.8); PLATELET COUNT 236 K/MM3 (134-434); RBC 3.01 M/mm3 (3.60-5.2); RDW 16.5 % (11.6-15.6)
[2020-04-11 14:56] VITALS: BP 163/67; PULSE 79; TEMP 98.8
[2020-04-11 14:59] LABS: ALBUMIN 3.2 g/dl (3.4-5.0); BILIRUBIN,DIRECT 0.2 mg/dL (0.0-0.2); BILIRUBIN,TOTAL 0.5 mg/dL (0.2-1); BLOOD UREA NITROGEN 15.9 mg/dL (7-18); CALCIUM 8.7 mg/dL (8.5-10.1); CREATININE 0.8 mg/dL (0.55-1.3); MAGNESIUM 1.8 mg/dL (1.8-2.4); POTASSIUM 3.7 mmol/L (3.5-5.1); TOT PROT 6.1 g/dl (6.4-8.2); URIC ACID 4.9 mg/dL (2.6-7.2)
== END 2020-04-11 16:28 | disposition home or self-care (01) ==
LOC: JONCCHEMO 07:35
PROVIDERS: ATTEND Internal Medicine Hematology & Oncology
PROC: 3E033GC Introduction of Other Therapeutic Substance into Peripheral Vein, Percutaneous Approach (ICD-10-PCS; principal; 2020-04-11)
PROC: 3E01305 Introduction of Other Antineoplastic into Subcutaneous Tissue, Percutaneous Approach (ICD-10-PCS; 2020-04-11)
DX: Z51.11 Encounter for antineoplastic chemotherapy (principal); C90.00 Multiple myeloma not having achieved remission
CPT/HCPCS: 36415; 80048; 80076; 83615; 83735; 84550; 85025; 96360; 96401; J9041

== ENCOUNTER 2020-04-18 06:41 | Day surgery (SDC) | payer OTHER, BC ==
--- OUTSIDE RECORDS SUMMARY | 2020-04-18 06:47 | XMS ---
:1950 [facility] Team Providers Name Role Phone SHANITA [...] is protected by Article 27-F of the [place] State Public Health law. If you continue you may haveaccess to information: Regarding HIV / AIDS; Provided by facilities licensed or operated by the [facility] Office of Mental Health; or Provided by the [facility] Office for People With Developmental Disabilities. If such information is present, then the following [facility] mandated warning applies: This information has [...] may result in a fine or senior care sentence or both. A general authorization for the release of medical or other information is NOT sufficient authorization for further disclosure. Encounters Encounter Providers Location Date Indications Data Source(s ) Inpatient Attender: SHANITA CARPENTER 10/06/2019 [facility] 01:30:00 PM EDT [facility] AAttender: STAFF ED - 10/20/2019 STAFF 05:15:00 PM EDT PHYSICIANAdmitter: SHANITA DIEHL AReferrer: SHANITA DIEHL A Patient discharged. Inpatient Attender: Solomon SahaHALFatoumata 05/18/2019 04:44:00 [place] MDAttender: STAFF ED STAFF PM EST - 05/23/2019 [facility] PHYSICIANAdmitter: Solomon 04:18:00 PM JOSEPH Green MDReferrer: Solomon Green MD Patient discharged. Immunizations Vaccine Date Status Description Data Source(s) New in 2011. IIV4 05/23/2019 completed [facility] 03:31:00 PM EST Center pneumococcal 05/20/2019 completed [facility] Rick ical polysaccharide PPV23 11:33:00 AM EST [facility] er Insurance Providers Payer name Policy type Policy ID Covered Covered alliance party's Policy P augustina / Coverage alliance party ID relationship to [facility] ormation type [place] BLUE CROSS [id number] SP [id number] SUPP PLAN MEDICARE [id number] SP [id number] BC PPO [id number] SP [id number] BLUE CROSS [id number] SP [id number] SUPP PLAN M [id number] 01 [id number] M [id number] 01 [id number] BLUE CROSS O [id number] 01 [id number] BLUE CROSS O [id number] 01 [id number] M [id number] 01 [id number] M [id number] 01 [id number] MEDICARE [id number] SP [id number] BC PPO [id number] SP [id number] BLUE CROSS O [id number] 01 [id number] SECONDARY M [id number] 01 [id number] A MEDICARE [id number] SP [id number] A Problems, Conditions, and Diagnoses Code Display Name Description Problem Type Effective Data Dates Source(s) D64.9 Anemia, ANEMIA, Diagnosis 10/20/2019 [facility] unspecified UNSPECIFIED 05:15:00 PM Medical EDT Center E78.5 Hyperlipidemia, HYPERLIPIDEMIA, Diagnosis 10/20/2019 An[facility] Singer unspecified UNSPECIFIED 05:15:00 PM Medical EDT Center E87.6 Hypokalemia HYPOKALEMIA Diagnosis 10/20/2019 [place] [facility] 05:15:00 PM Medical EDT Center E11.65 Type 2 diabetes TYPE 2 DIABETES Diagnosis 10/20/2019 Anandaddis Cast[facility] mellitus with MELLITUS WITH 05:15:00 PM Medical hyperglycemia HYPERGLYCEMIA EDT Center J96.01 Acute respiratory ACUTE RESPIRATORY Diagnosis 10/20/2019 [facility] failure with FAILURE WITH 05:15:00 PM Medical hypoxia HYPOXIA EDT Center J12.89 Other viral OTHER VIRAL Diagnosis 10/20/2019 [facility] pneumonia PNEUMONIA 05:15:00 PM Medical EDT Center U07.1 COVID-19 ACUTE COVID-19 ACUTE Diagnosis 10/20/2019 [facility] RESPIRATORY RESPIRATORY 05:15:00 PM Medical DISEASE DISEASE EDT Center 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 [facility] (current) use of (CURRENT) USE OF 05:15:00 PM M edical oral hypoglycemic ORAL HYPOGLYCEMIC EDT Center drugs DRUGS J18.9 Pneumonia, PNEUMONIA, Diagnosis 10/06/2019 [facility] Lu[facility]cia unspecified UNSPECIFIED 01:30:00 PM Medical organism ORGANISM EDT Center 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 05/23/2019 Anand Singer thyroid nodule THYROID NODULE 04:18:00 PM Medic al EST Center I10 Essential ESSENTIAL Diagnosis 05/23/2019 [facility] (primary) (PRIMARY) 04:18:00 PM Medical hypertension HYPERTENSION EST Center I16.0 Hypertensive HYPERTENSIVE Diagnosis 05/23/2019 [facility] urgency URGENCY 04:18:00 PM Medical EST Center E11.9 Type 2 diabetes TYPE 2 DIABETES Diagnosis 05/23/2019 Anand Singer mellitus without MELLITUS WITHOUT 04:18:00 PM M edical complications COMPLICATIONS EST Center M84.421A Pathological PATHOLOGICAL Diagnosis 05/18/2019 [facility] phs fracture, right FRACTURE, RIGHT 04:44:00 PM Med ical humerus, initial HUMERUS, INIT FOR EST C enter encounter for FX fracture Results ID Date Data Source [id number] 01/19/2020 08:00:00 PM EDT [facility] Name Value Range Interpretation Description Data Sup porting Code Source(s) Document(s ) SARS [facility] coronavirus 2 RNA This lab was ordered by [facility] and reported by [facility]. ID Date Data Source [id number] 01/03/2020 10:35:00 AM EDT [facility] Name Value Range Interpretation Description Data Sup porting Code Source(s) Document(s ) SARS [facility] CORONAVIRUS 2 RNA This lab was ordered by [facility] and reported by [facility]. ID Date Data Source [id number] 12/27/2019 12:00:00 AM EDT [facility] Name Value Range Interpretation Code Description Data Debra rce(s) Supporting Document(s ) 2018-nCoV [facility] RNA XXX TOM+probe- Imp This lab was ordered by [facility] and reported by [employer] ID Date Data Source [id number] 12/06/2019 12:00:00 AM EDT [facility] Name Value Range Interpretation Code Description Data Debra rce(s) Supporting Document(s ) 2018-nCoV [facility] RNA XXX TOM+probe- Imp This lab was ordered by [facility] and reported by [employer] ID Date Data Source Liver 10/19/2019 06:58:00 AM EDT [facility] Profile.[id number] Name Value Range Interpretation Description Data Sup [...] s"> (3.5-5.0 G/DL)</content> ID Date Data Source HematologyRou.[id number] 10/19/2019 06:58:00 AM EDT [facility] 0400 Name Value Range Interpretation Description Data [...] (0.0 KCUMM)</content > ID Date Data Source GFR(Creatinine).[id number] 10/19/2019 06:58:00 AM EDT [facility] 0-0400 Name Value Range Interpretation Code Description Data Debra rce(s) Supporting Document(s ) UNK > 60 <content [facility] styleCode="Bold"> Medical Cent er EGFR </content>70 GFR<content styleCode="Italic s"> (> 60 GFR)</content> ID Date Data Source CHMROUTINECCDA.[id number] 10/19/2019 06:58:00 AM EDT [facility] -0400 Name Value Range Interpretation Description Data Sup porting Code Source(s) Document(s ) Ferritin 7-264 <content [facility] [Mass/volume] in styleCode="Bold [place] Serum or Plasma ">Ferritin Medical </content>245 Center NG/ML<content styleCode="Ital ics"> (7-264 NG/ML)</content > UNK >= 1.0 Below low normal <content [facility] styleCode="Bold [place] ">AG Ratio Medical </content>0.9 Center L<content styleCode="Ital ics"> (>= 1.0 )</content> UNK 2.3-3.5 <content [facility] styleCode="Bold [place] ">Globulin Medical </content>3.4 Center G/DL<content styleCode="Ital ics"> (2.3-3.5 G/DL)</content> Protein 6.3-8.2 <content [facility] [Mass/volume] in styleCode="Bold [place] Serum or Plasma ">Total Protein Medical </content>6.6 Center G/DL<content styleCode="Ital ics"> (6.3-8.2 G/DL)</content> Lactate 316-618 <content [facility] dehydrogenase styleCode="Bold [place] [Enzymatic ">Lactate Medical activity/volume] Dehydrogenase Center in Serum or (LDH) Plasma by </content>379 Pyruvate to IU/L<content lactate reaction styleCode="Ital ics"> (316-618 IU/L)</content> ID Date Data Source [facility].[id number] 10/19/2019 06:58:00 AM EDT [facility] Name Value Range Interpretation Description [...] Data Source Liver 10/17/2019 07:30:00 AM EDT [facility] Profile.[id number] Name Value Range Interpretation Description Data Sup [...] s"> (3.5-5.0 G/DL)</content> ID Date Data Source HematologyRou.[id number] 10/17/2019 07:30:00 AM EDT [facility] 0400 Name Value Range Interpretation Description Data Sup porting Code Source(s) Document(s ) Erythrocytes 4.0-5.1 Below low normal <content [facility] [#/volume] in styleCode="Bold [facility] Blood by ">Red Blood Medical Automated count Cell Count Center </content>3.99 MCUMM L<content styleCode="Ital ics"> (4.0-5.1 MCUMM)</content > Hematocrit 36.0-46. Below low normal <content [facility] [Volume 0 styleCode="Bold [facility] Fraction] of ">Hematocrit Medical Blood by </content>34.9 Center Automated count % L<content styleCode="Ital ics"> (36.0-46.0 %)</content> Hemoglobin 12.3-16. Below low normal <content [facility] [Mass/volume] in 0 styleCode="Bold [place] Blood ">Hemoglobin Medical </content>11.2 Center G/DL L<content styleCode="Ital ics"> (12.3-16.0 G/DL)</content> Leukocytes 4.4-11.0 Above high <content [facility] [#/volume] in normal styleCode="Bold [facility] Blood by ">White Blood Medical Automated count [...] ics"> (0 /100)</content> ID Date Data Source GFR(Creatinine).[id number] 10/17/2019 07:30:00 AM EDT [facility] 0-0400 Name Value Range Interpretation Code Description Data Debra rce(s) Supporting Document(s ) UNK > 60 <content [facility] styleCode="Bold"> Medical Cent er EGFR </content>79 GFR<content styleCode="Italic s"> (> 60 GFR)</content> ID Date Data Source Coagulation 10/17/2019 07:30:00 AM [facility] Rout.[id number] EDT Name Value Range Interpretation Code Description Data Debra rce(s) Supporting Document(s ) UNK < 500 Above upper panic <content [place] [facility] limits styleCode="Bold"> Medical Cent er D-Dimer </content><conten t styleCode="Bold"> 2112 ngFEU HH</content><cont ent styleCode="Italic s"> (< 500 ngFEU)</content> ID Date Data Source CHMROUTINECCDA.[id number] 10/17/2019 07:30:00 AM EDT [facility] -0400 Name Value Range Interpretation Description [...] (1.6-2.3 MG/DL)</conten t> ID Date Data Source [facility].[id number] 10/17/2019 07:30:00 AM EDT [facility] Name Value Range Interpretation Description Data Sup porting Code Source(s) Document(s ) Potassium 3.5-5.3 <content [facility] [Moles/volume] in styleCode="Bold"> [facility] Serum or Plasma Potassium Medical </content>4.0 Center MEQ/L<content styleCode="Italic s"> (3.5-5.3 MEQ/L)</content> Chloride 98-107 Below low <content [facility] [Moles/volume] in normal styleCode="Bold"> [facility] Serum or Plasma Chloride Medical </content>95 Center MEQ/L L<content styleCode="Italic s"> (98-107 MEQ/L)</content> Sodium 137-145 <content [facility] [Moles/volume] in styleCode="Bold"> [facility] Serum or Plasma Sodium Medical </content>138 Center [...] Data Source Liver 10/16/2019 06:05:00 AM EDT [facility] Profile.[id number] Name Value Range Interpretation Description Data Sup [...] Above high <content [facility] phosphatase normal styleCode="Bold"> [facility] [Enzymatic Alkaline Medical activity/volume] Phosphatase (ALP) Cente [...] s"> (3.5-5.0 G/DL)</content> ID Date Data Source HematologyRou.[id number] 10/16/2019 06:05:00 AM EDT [facility] 0400 Name Value Range Interpretation Description Data Sup porting Code Source(s) Document(s ) Hematocrit 36.0-46. Below low normal <content [facility] [Volume 0 styleCode="Bold [place] Fraction] of ">Hematocrit Medical Blood by </content>29.8 [...] ics"> (NORMAL )</content> ID Date Data Source GFR(Creatinine).[id number] 10/16/2019 06:05:00 AM EDT [facility] 0-0400 Name Value Range Interpretation Code Description Data Debra rce(s) Supporting Document(s ) UNK > 60 <content [facility] styleCode="Bold"> Medical Cent er EGFR </content>79 GFR<content styleCode="Italic s"> (> 60 GFR)</content> ID Date Data Source CHMROUTINECCDA.[id number] 10/16/2019 06:05:00 AM EDT [facility] -0400 Name Value Range Interpretation Description Data Sup porting Code Source(s) Document(s ) UNK 2.3-3.5 <content [facility] styleCode="Bold Medical ">Globulin Center </content>3.0 G/DL<content styleCode="Ital ics"> (2.3-3.5 G/DL)</content> UNK >= 1.0 <content [facility] styleCode="Bold Medical ">AG Ratio Center </content>1.0 <content styleCode="Ital ics"> (>= 1.0 )</content> Protein 6.3-8.2 Below low normal <content [facility] [Mass/volum styleCode="Bold Medical e] in Serum ">Total Protein Center or Plasma </content>6.0 G/DL L<content styleCode="Ital ics"> (6.3-8.2 G/DL)</content> ID Date Data Source [employer]ers.[id number] 10/16/2019 06:05:00 AM EDT [facility] -0400 Name Value Range Interpretation Description Data Sup porting Code Source(s) Document(s ) Troponin < 0.034 <content [facility] I.cardiac styleCode="Bold [place] [Mass/volume ">Troponin I Medical ] in Serum </content>< Center or Plasma 0.012 NG/ML<content styleCode="Ital ics"> (< 0.034 NG/ML)</content > ID Date Data Source [facility].[id number] 10/16/2019 06:05:00 AM EDT [facility] Name Value Range Interpretation Description Data Sup porting Code Source(s) Document(s ) Chloride 98-107 Below low <content [facility] [Moles/volume] in normal styleCode="Bold"> [facility] Serum or Plasma Chloride Medical </content>94 Center MEQ/L L<content styleCode="Italic s"> (98-107 MEQ/L)</content> Sodium 137-145 <content [facility] [Moles/volume] in styleCode="Bold"> [facility] Serum or Plasma Sodium Medical </content>137 Center MEQ/L<content styleCode="Italic s"> (137-145 MEQ/L)</content> Carbon dioxide, 22-30 Above high <content [facility] total normal styleCode="Bold"> [place] [Moles/volume] in Carbon Dioxide Medical Serum or Plasma </content>33 Center MEQ/L H<content styleCode="Italic s"> (22-30 MEQ/L)</content> Potassium 3.5-5.3 <content [facility] [Moles/volume] in styleCode="Bold"> [facility] Serum or Plasma Potassium Medical </content>4.5 Center [...] s"> (3.5-5.0 G/DL)</content> ID Date Data Source HematologyRou.[id number] 10/13/2019 05:35:00 AM EDT [facility] 0400 Name Value Range Interpretation [...] ics"> (2-9 %)</content> ID Date Data Source [facility].[id number] 10/12/2019 01:35:00 PM EDT [facility] -0400 Name Value Range Interpretation Description Data Sup porting Code Source(s) Document(s ) Lactate 0.7-2.0 Above upper panic <content [place] [facility] [Mass/volum limits styleCode="Bold Medical e] in Serum ">Lactic Acid Center or Plasma </content><cont ent styleCode="Bold ">3.6 MMOLL HH</content><co ntent styleCode="Ital ics"> (0.7-2.0 MMOLL)</content > ID Date Data Source HematologySpeci.[id number] 10/12/2019 01:28:00 PM EDT [facility] 0-0400 Name Value Range Interpretation Description Data Sup porting Code Source(s) Document(s ) C reactive < 3.0 Above high normal <content [facility] hs protein styleCode="Bold Medical [Mass/volume ">C-Reactive Center ] in Serum Protein or Plasma </content>> 15.0 MG/L H<content styleCode="Ital ics"> (< 3.0 MG/L)</content> ID Date Data Source [facility][id number] 10/12/2019 01:28:00 PM EDT [facility] -0400 Name Value Range Interpretation Description [...] Data Source Liver 10/11/2019 05:45:00 AM EDT [facility] Profile.[id number] Name Value Range Interpretation Description Data Sup [...] G/DL)</content> Alkaline 38-126 Above high <content [facility] phosphatase normal styleCode="Bold"> [place] [Enzymatic Alkaline Medical activity/volume] Phosphatase (ALP) Cente r in Serum or Plasma </content>262 IU/L H<content styleCode="Italic s"> (38-126 IU/L)</content> Bilirubin.total 0.2-1.3 <content [facility] [Mass/volume] in styleCode="Bold"> Abiel hs Serum or Plasma Bilirubin Total Medical </content>0.9 Center MG/DL<content styleCode="Italic s"> (0.2-1.3 MG/DL)</content> ID Date Data Source GFR(Creatinine).[id number] 10/11/2019 05:45:00 AM EDT [facility] 0-0400 Name Value Range Interpretation Code Description Data Debra rce(s) Supporting Document(s ) UNK > 60 <content [facility] styleCode="Bold"> Medical Cent er EGFR </content>79 GFR<content styleCode="Italic s"> (> 60 GFR)</content> ID Date Data Source BMP.[id number] 10/11/2019 05:45:00 AM EDT [facility] Name Value Range Interpretation Description Data [...] 7-17 Above high <content [facility] normal styleCode="Bold"> [facility] BUN </content>21 Medical MG/DL H<content Center styleCode="Italic [...] s"> (3.5-5.0 G/DL)</content> ID Date Data Source HematologyRou.[id number] 10/11/2019 05:10:00 AM EDT [facility] 0400 Name Value Range Interpretation Description [...] Date Data Source Coagulation 10/11/2019 05:10:00 AM [facility] Rout.[id number] EDT Name Value Range Interpretation Code Description Data Debra rce(s) Supporting Document(s ) UNK < 500 Above upper panic <content [place] [facility] limits styleCode="Bold"> Medical Cent er D-Dimer </content><conten t styleCode="Bold"> 5198 ngFEU HH</content><cont ent styleCode="Italic s"> (< 500 ngFEU)</content> ID Date Data Source HematologySpeci.[id number] 10/10/2019 05:35:00 PM EDT [facility] 0-0400 Name Value Range Interpretation Description Data Sup porting Code Source(s) Document(s ) C reactive < 3.0 Above high normal <content [facility] hs protein styleCode="Bold Medical [Mass/volume ">C-Reactive Center ] in Serum Protein or Plasma </content>> 15.0 MG/L H<content styleCode="Ital ics"> (< 3.0 MG/L)</content> ID Date Data Source Liver 10/09/2019 05:10:00 AM EDT [facility] Profile.[id number] Name Value Range Interpretation Description Data Sup [...] G/DL)</content> Alkaline 38-126 <content [facility] phosphatase styleCode="Bold"> [facility] [Enzymatic Alkaline Medical activity/volume] Phosphatase (ALP) Cente r in Serum or Plasma </content>99 IU/L<content styleCode="Italic s"> (38-126 IU/L)</content> ID Date Data Source GFR(Creatinine).[id number] 10/09/2019 05:10:00 AM EDT [facility] 0-0400 Name Value Range Interpretation Code Description Data Debra rce(s) Supporting Document(s ) UNK > 60 <content [facility] styleCode="Bold"> Medical Cent er EGFR </content>70 GFR<content styleCode="Italic s"> (> 60 GFR)</content> ID Date Data Source [facility].[id number] 10/09/2019 05:10:00 AM EDT [facility] Name Value Range Interpretation Description Data [...] G/DL)</content> Alkaline 38-126 <content [facility] phosphatase styleCode="Bold"> [facility] [Enzymatic Alkaline Medical activity/volume] Phosphatase (ALP) Cente r in Serum or Plasma </content>99 IU/L<content styleCode="Italic s"> (38-126 IU/L)</content> ID Date Data Source HematologySpeci.[id number] 10/08/2019 04:14:00 AM EDT [facility] 0-0400 Name Value Range Interpretation Description Data Sup porting Code Source(s) Document(s ) C reactive < 3.0 Above high normal <content [facility] hs protein styleCode="Bold Medical [Mass/volume ">C-Reactive Center ] in Serum Protein or Plasma </content>> 15.0 MG/L H<content styleCode="Ital ics"> (< 3.0 MG/L)</content> ID Date Data Source [facility].[id number] 10/08/2019 04:14:00 AM EDT [facility] -0400 Name Value Range Interpretation Description Data Sup porting Code Source(s) Document(s ) Troponin < 0.034 Above upper panic <content [facility] I.cardiac limits styleCode="Bold [place] [Mass/volume ">Troponin I Medical ] in Serum </content><cont Center or Plasma ent styleCode="Bold ">0.037 NG/ML HH</content><co ntent styleCode="Ital ics"> (< 0.034 NG/ML)</content > ID Date Data Source HematologyRou.[id number] 10/07/2019 04:10:00 AM EDT [facility] 0400 Name Value Range Interpretation [...] (0-0.1 KCUMM)</content > ID Date Data Source GFR(Creatinine).[id number] 10/07/2019 04:10:00 AM EDT [facility] 0-0400 Name Value Range Interpretation Code Description Data Debra rce(s) Supporting Document(s ) UNK > 60 <content [facility] styleCode="Bold"> Medical Cent er EGFR </content>79 GFR<content styleCode="Italic s"> (> 60 GFR)</content> ID Date Data Source [facility].[id number] 10/07/2019 04:10:00 AM EDT [facility] Name Value Range Interpretation Description Data [...] or d">Calcium Medical Plasma </content>9.5 Center MG/DL<content styleCode="Chrsitina lics"> (8.4-10.2 MG/DL)</conten t> ID Date Data Source CHMROUTINECCDA.[id number] 10/06/2019 07:30:00 PM EDT [facility] -0400 Name Value Range Interpretation Code Description Data Debra rce(s) Supporting Document(s ) UNK 0.7-2.0 <content [facility] styleCode="Bold" Medical Cente r >Lactic Acid 4hr </content>0.9 MMOLL<content styleCode="Itali cs"> (0.7-2.0 MMOLL)</content> ID Date Data Source Microbiology.[id number] 10/06/2019 04:20:00 PM EDT [facility] 400 Name Value Range Interpretation Code Description Data Debra rce(s) Supporting Document(s ) UNK <item><content [facility] styleCode="Bold"> Medical [facility] er Culture Report </content>
<t able><tbody><tr>< td>Specimen Number:</td><td>[id number]</td></tr ><tr><td>Sample Collection Date/Time: </td><td>10/06/2019 4:20 PM</td></tr><tr>< td>Specimen Source:</td><td>B LOOD</td></tr><tr ><td>Blood Culture:</td><td> Collection Plate Date: 10/06/2019 16:21 </td></tr><tr><td >Culture Status:</td><td>F inal </td></tr><tr><td >Culture Report:</td><td>N O GROWTH 5 DAYS </td></tr></tbody ></table></item> UNK <item><content [facility] styleCode="Bold"> Medical [facility] er Culture Status </content>
<t able><tbody><tr>< td>Specimen Number:</td><td>[id number]</td></tr ><tr><td>Sample Collection Date/Time: </td><td>10/06/2019 4:20 PM</td></tr><tr>< td>Specimen Source:</td><td>B LOOD</td></tr><tr ><td>Blood Culture:</td><td> Collection Plate Date: 10/06/2019 16:21 </td></tr><tr><td >Culture Report:</td><td>N O GROWTH 5 DAYS </td></tr><tr><td >Culture Status:</td><td>F inal </td></tr></tbody ></table></item> ID Date Data Source Microbiology.[id number] 10/06/2019 04:00:00 PM EDT [facility] 400 Name Value Range Interpretation Code Description Data Debra rce(s) Supporting Document(s ) UNK <item><content [facility] styleCode="Bold"> Medical Cent er Culture Status </content>
<t able><tbody><tr>< td>Specimen Number:</td><td>[id number]</td></tr ><tr><td>Sample Collection Date/Time: </td><td>10/06/2019 4:00 PM</td></tr><tr>< td>Specimen Source:</td><td>B LOOD</td></tr><tr ><td>Culture Report:</td><td>N O GROWTH 5 DAYS </td></tr><tr><td >Culture Status:</td><td>F inal </td></tr><tr><td >Blood Culture:</td><td> Collection Plate Date: 10/06/2019 16:12 </td></tr></tbody ></table></item> UNK <item><content [facility] styleCode="Bold"> Medical Cent er Culture Report </content>
<t able><tbody><tr>< td>Specimen Number:</td><td>[id number]</td></tr ><tr><td>Sample Collection Date/Time: </td><td>10/06/2019 4:00 PM</td></tr><tr>< td>Specimen Source:</td><td>B LOOD</td></tr><tr ><td>Blood Culture:</td><td> Collection Plate Date: 10/06/2019 16:12 </td></tr><tr><td >Culture Status:</td><td>F inal </td></tr><tr><td >Culture Report:</td><td>N O GROWTH 5 DAYS </td></tr></tbody ></table></item> ID Date Data Source HematologySpeci.[id number] 10/06/2019 04:00:00 PM EDT [facility] 0-0400 Name Value Range Interpretation Description Data Sup porting Code Source(s) Document(s ) C reactive < 3.0 Above high normal <content [facility] protein styleCode="Bold Medical [Mass/volume ">C-Reactive Center ] in Serum Protein or Plasma </content>> 15.0 MG/L H<content styleCode="Ital ics"> (< 3.0 MG/L)</content> ID Date Data Source Coagulation 10/06/2019 04:00:00 PM [facility] Rout.[id number] EDT Name Value Range Interpretation Description Data Sup porting Code Source(s) Document(s ) UNK 9.0-13.0 <content Saint styleCode="Layla Lucrecia d">Protime Medical </content>12.6 Center SEC<content styleCode="Christina lics"> (9.0-13.0 SEC)</content> INR in 0.80-1.2 <content Saint Platelet poor 0 styleCode="[facility] plasma by d">INR Medical Coagulation </content>1.14 Center assay #<content styleCode="Christina lics"> (0.80-1.20 #)</content> ID Date Data Source CardiacMarkers.[id number] 10/06/2019 04:00:00 PM EDT [facility] -0400 Name Value Range Interpretation Description Data Sup porting Code Source(s) Document(s ) Troponin < 0.034 <content Saint I.cardiac styleCode="Bold Lucrecia [Mass/volume ">Troponin I Medical ] in Serum </content>0.027 Center or Plasma NG/ML<content styleCode="Ital ics"> (< 0.034 NG/ML)</content > ID Date Data Source Liver 10/06/2019 04:00:00 PM EDT [facility] Profile.[id number] Name Value Range Interpretation Description Data Sup [...] s"> (3.5-5.0 G/DL)</content> ID Date Data Source HematologyRou.[id number] 10/06/2019 04:00:00 PM EDT [facility] 0400 Name Value Range Interpretation [...] ics"> (0 /100)</content> ID Date Data Source GFR(Creatinine).[id number] 10/06/2019 04:00:00 PM EDT [facility] 0-0400 Name Value Range Interpretation Code Description Data Debra rce(s) Supporting Document(s ) UNK > 60 <content [facility] styleCode="Bold"> Medical Cent er EGFR </content>79 GFR<content styleCode="Italic s"> (> 60 GFR)</content> ID Date Data Source CHMROUTINECCDA.[id number] 10/06/2019 04:00:00 PM EDT [facility] -0400 Name Value Range Interpretation Description [...] ics"> (23-300 IU/L)</content> ID Date Data Source [facility].[id number] 10/06/2019 04:00:00 PM EDT [facility] Name Value Range Interpretation Description Data Sup porting Code Source(s) Document(s ) Sodium 137-145 <content Saint [Moles/volume] in styleCode="Bold"> [facility] Serum or Plasma Sodium Medical </content>137 Center MEQ/L<content styleCode="Italic s"> (137-145 MEQ/L)</content> Chloride 98-107 <content Saint [Moles/volume] in styleCode="Bold"> [facility] Serum or Plasma Chloride Medical </content>98 Center MEQ/L<content styleCode="Italic s"> (98-107 MEQ/L)</content> Potassium 3.5-5.3 Below low <content Saint [Moles/volume] in normal styleCode="Bold"> [facility] Serum or Plasma Potassium Medical </content>3.2 Center [...] s"> (3.5-5.0 G/DL)</content> ID Date Data Source HematologyRou.[id number] 05/23/2019 06:01:[address] [facility] 0500 Name Value Range Interpretation [...] (0.0 KCUMM)</content > ID Date Data Source GFR(Creatinine).[id number] 05/23/2019 06:01:00 AM [facility] 0-0500 Name Value Range Interpretation Code Description Data Debra rce(s) Supporting Document(s ) UNK > 60 <content [facility] styleCode="Bold"> Medical Cent er EGFR </content>106 GFR<content styleCode="Italic s"> (> 60 GFR)</content> ID Date Data Source CHMROUTINECCDA.[id number] 05/23/2019 06:01:00 AM [facility] -0500 Name Value Range Interpretation Description Data Sup porting Code Source(s) Document(s ) Magnesium 1.6-2.3 <content Saint [Mass/volume] styleCode="Layla Lucrecia in Serum or d">Magnesium Medical Plasma </content>2.0 Center MG/DL<content styleCode="Christina lics"> (1.6-2.3 MG/DL)</conten t> ID Date Data Source [facility].[id number] 05/23/2019 06:01:00 AM [facility] Name Value Range Interpretation Description Data [...] t> Chloride 98-107 <content Saint [Moles/volume] styleCode="Layla Castillos in Serum or d">Chloride Medical Plasma </content>105 [...] Castillos in Serum or d">Calcium Medical Plasma </content>10.3 Center MG/DL H<content styleCode="Christina lics"> (8.4-10.2 MG/DL)</conten t> Glucose 74-106 Above high normal <content Saint [Mass/volume] styleCode="Layla Castillos in Serum or d">Glucose Medical Plasma </content>165 Center MG/DL H<content styleCode="Christina lics"> (74-106 MG/DL)</conten t> UNK > 60 <content Saint styleCode="Layla Singer d">EGFR Medical </content>106 Center GFR<content styleCode="Christina lics"> (> 60 GFR)</content> ID Date Data Source HematologyRou.[id number] 05/22/2019 06:12:[address] [facility] 0500 Name Value Range Interpretation Description Data [...] (130-400 KCUMM)</content > ID Date Data Source GFR(Creatinine).[id number] 05/22/2019 06:12:00 AM [facility] 0-0500 Name Value Range Interpretation Code Description Data Debra rce(s) Supporting Document(s ) UNK > 60 <content [facility] Castillos styleCode="Bold"> Medical Cent er EGFR </content>106 GFR<content styleCode="Italic s"> (> 60 GFR)</content> ID Date Data Source CHMROUTTAMICCDA.[id number] 05/22/2019 06:12:00 AM [facility] -0500 Name Value Range Interpretation Description Data Sup porting Code Source(s) Document(s ) Magnesium 1.6-2.3 <content Saint [Mass/volume] styleCode="Layla Lucrecia in Serum or d">Magnesium Medical Plasma </content>2.1 Center MG/DL<content styleCode="Christina lics"> (1.6-2.3 MG/DL)</conten t> ID Date [id number] 05/22/2019 06:12:00 AM EST [facility] Name Value Range Interpretation [...] t> Potassium 3.5-5.3 <content Saint [Moles/volume] styleCode="Layla Lucrecai in Serum or d">Potassium Medical Plasma </content>3.5 Center MEQ/L<content styleCode="Christina lics"> (3.5-5.3 MEQ/L)</conten t> UNK 7-17 <content Saint styleCode="Layla Lucrecia d">BUN Medical </content>16 Center MG/DL<content styleCode="Christina lics"> (7-17 MG/DL)</conten t> Glucose 74-106 Above high normal <content Saint [Mass/volume] styleCode="Layla Lucrecia in Serum or d">Glucose Medical Plasma </content>176 Center MG/DL H<content styleCode="Christina lics"> (74-106 MG/DL)</conten t> Calcium 8.4-10.2 <content Saint [Mass/volume] styleCode="Layla Lucrecia in Serum or d">Calcium Medical Plasma </content>10.1 Center MG/DL<content styleCode="Christina lics"> (8.4-10.2 MG/DL)</conten t> UNK > 60 <content Saint styleCode="Layla Lucrecia d">EGFR Medical </content>106 Center GFR<content styleCode="Christina lics"> (> 60 GFR)</content> Creatinine 0.5-1.3 <content Saint [Mass/volume] styleCode="Layla Lucrecia in Serum or d">Creatinine Medical Plasma </content>0.7 Center MG/DL<content styleCode="Christina lics"> (0.5-1.3 MG/DL)</conten t> ID Date Data Source Liver 05/21/2019 07:05:00 AM EST [facility] Profile.[id number] Name Value Range Interpretation Description Data Sup porting Code Source(s) Document(s ) Alanine 7-30 <content Saint aminotransferase styleCode="Bold"> [facility]iel hs [Enzymatic Alanine Medical activity/volume] Aminotransferase Center in Serum or Plasma (ALT) </content>18 IU/L<content styleCode="Italic s"> (7-30 IU/L)</content> Aspartate 14-36 <content Saint aminotransferase styleCode="Bold"> [...] s"> (0.2-1.3 MG/DL)</content> ID Date Data Source HematologyRou.[id number] 05/21/2019 07:05:[address] [facility] 0500 Name Value Range Interpretation Description Data Sup porting Code Source(s) Document(s ) Hemoglobin 12.3-16. Below low normal <content Saint [Mass/volume] in 0 styleCode="Bold Lucrecia Blood ">Hemoglobin Medical </content>11.2 Center G/DL L<content styleCode="Ital ics"> (12.3-16.0 G/DL)</content> Erythrocytes 4.0-5.1 Below low normal <content Saint [#/volume] in styleCode="Bold [facility] Blood by ">Red Blood Medical Automated count [...] (0.0 KCUMM)</content > ID Date Data Source GFR(Creatinine).[id number] 05/21/2019 07:05:00 AM [facility] 0-0500 Name Value Range Interpretation Code Description Data Debra rce(s) Supporting Document(s ) UNK > 60 <content [facility] styleCode="Bold"> Medical Cent er EGFR </content>106 GFR<content styleCode="Italic s"> (> 60 GFR)</content> ID Date Data Source CHMROUTINECCDA.[id number] 05/21/2019 07:05:00 AM [facility] -0500 Name Value Range Interpretation Description [...] ics"> (6.3-8.2 G/DL)</content> ID Date Data Source [facility].[id number] 05/21/2019 07:05:00 AM EST [facility] Name Value Range Interpretation Description Data Sup porting Code Source(s) Document(s ) Sodium 137-145 <content Saint [Moles/volume] in styleCode="Bold"> [facility] Serum or Plasma Sodium Medical </content>141 Center MEQ/L<content styleCode="Italic s"> (137-145 MEQ/L)</content> Chloride 98-107 <content Saint [Moles/volume] in styleCode="Bold"> [facility] Serum or Plasma Chloride Medical </content>103 Center MEQ/L<content styleCode="Italic s"> (98-107 MEQ/L)</content> UNK 7-17 <content Saint styleCode="Bold"> Lucrecia BUN </content>17 Medical MG/DL<content Center styleCode="Italic s"> (7-17 MG/DL)</content> Carbon dioxide, 22-30 <content Saint total styleCode="Bold"> Lucrecia [Moles/volume] in Carbon Dioxide Medical Serum or Plasma </content>30 Center MEQ/L<content styleCode="Italic s"> (22-30 MEQ/L)</content> Potassium 3.5-5.3 Below low <content Saint [Moles/volume] in normal styleCode="Bold"> [facility] Serum or Plasma Potassium Medical </content>3.2 Center [...] Data Source Liver 05/20/2019 05:56:00 AM EST [facility] Profile.[id number] Name Value Range Interpretation Description Data Sup [...] IU/L)</content> Alkaline 38-126 <content Saint phosphatase styleCode="Bold"> [facility] [Enzymatic Alkaline Medical activity/volume] Phosphatase (ALP) Cente [...] s"> (0.2-1.3 MG/DL)</content> ID Date Data Source HematologyRou.[id number] 05/20/2019 05:56:[address] [facility] 0500 Name Value Range Interpretation [...] Lucrecia Fraction] of ">Hematocrit Medical Blood by </content>32.4 [...] (0-0.1 KCUMM)</content > ID Date Data Source GFR(Creatinine).[id number] 05/20/2019 05:56:00 AM [facility] 0-0500 Name Value Range Interpretation Code Description Data Debra rce(s) Supporting Document(s ) UNK > 60 <content [facility] styleCode="Bold"> Medical Cent er EGFR </content>106 GFR<content styleCode="Italic s"> (> 60 GFR)</content> ID Date Data Source MROUTINECCDA.[id number] 05/20/2019 05:56:00 AM [facility] -0500 Name Value Range Interpretation Description [...] %)</content> Protein 6.3-8.2 <content Saint [Mass/volume] styleCode="Layla Castillos in Serum or d">Total Medical Plasma Protein Center </content>6.3 G/DL<content styleCode="Christina lics"> (6.3-8.2 G/DL)</content > Magnesium 1.6-2.3 <content Saint [Mass/volume] styleCode="Layla Lucrecia in Serum or d">Magnesium Medical Plasma </content>1.8 Center MG/DL<content styleCode="Christina lics"> (1.6-2.3 MG/DL)</conten t> ID Date Data Source [facility].[id number] 05/20/2019 05:56:00 AM EST [facility] Name Value Range Interpretation Description Data Sup porting Code Source(s) Document(s ) Sodium 137-145 <content Saint [Moles/volume] in styleCode="Bold"> [facility] Serum or Plasma Sodium Medical </content>140 Center MEQ/L<content styleCode="Italic s"> (137-145 MEQ/L)</content> Potassium 3.5-5.3 <content Saint [Moles/volume] in styleCode="Bold"> [facility] Serum or Plasma Potassium Medical </content>3.5 Center MEQ/L<content styleCode="Italic s"> (3.5-5.3 MEQ/L)</content> Carbon dioxide, 22-30 <content Saint total styleCode="Bold"> Lucrecia [Moles/volume] in Carbon Dioxide Medical Serum or Plasma </content>29 Center MEQ/L<content styleCode="Italic s"> (22-30 MEQ/L)</content> Chloride 98-107 <content Saint [Moles/volume] in styleCode="Bold"> [facility] Serum or Plasma Chloride Medical </content>104 Center [...] s"> (3.5-5.0 G/DL)</content> ID Date Data Source BMP.[id number] 05/19/2019 12:17:00 PM EST [facility] Name Value Range Interpretation Description Data Sup porting Code Source(s) Document(s ) Potassium 3.5-5.3 <content Saint [Moles/volume styleCode="Layla Lucrecia ] in Serum or d">Potassium Medical Plasma </content>3.6 Center MEQ/L<content styleCode="Christina lics"> (3.5-5.3 MEQ/L)</conten t> ID Date Data Source Urinalysis.[id number] 05/19/2019 08:33:00 AM EST [facility] 0 Name Value Range Interpretation Description Data Sup porting Code Source(s) Document(s ) UNK CLEAR <content Saint styleCode="Layla Lucrecia d">Urine Medical Clarity Center </content>MAI R <content styleCode="Christina lics"> (CLEAR )</content> Color of Urine YELLOW <content Saint styleCode="Layla Lucrecia d">Color, Medical Urine Center </content>YELL OW <content styleCode="Christina lics"> (YELLOW )</content> UNK NEGATIVE <content Saint styleCode="Layla Lucrecia d">Urine Medical Bilirubin Center </content>NEGA TIVE <content styleCode="Christina lics"> (NEGATIVE )</content> Ketones NEGATIVE <content Saint [Mass/volume] styleCode="Layla Lucrecia in Urine by d">Urine Medical Test strip Ketone Center </content>NEGA TIVE MG/DL<content styleCode="Christina lics"> (NEGATIVE MG/DL)</conten t> Glucose NEGATIVE <content Saint [Mass/volume] styleCode="Layla Lucrecia in Urine by d">Urine Medical Test strip Glucose Center </content>NEGA TIVE MG/DL<content styleCode="Christina lics"> (NEGATIVE MG/DL)</conten t> Specific 1.015-1.02 <content Saint gravity of 5 styleCode="Layla Lucrecia Urine by Test d">Urine Medical strip Specific Center [place] </content>1.02 0 <content styleCode="Christina lics"> (1.015-1.025 )</content> Protein NEGATIVE <content Saint [Mass/volume] styleCode="Layla Lucrecia in Urine by d">Urine Medical Test strip Protein Center </content>100 MG/DL<content styleCode="Christina lics"> (NEGATIVE MG/DL)</conten t> Hemoglobin NEGATIVE <content Saint [Presence] in styleCode="Layla Castillos Urine by Test d">Urine Blood Medical strip </content>TRAC Center E <content styleCode="Christina lics"> (NEGATIVE )</content> pH of Urine by 4.5-8.0 <content Saint Test strip styleCode="Layla Lucrecia d">Urine pH Medical </content>6.5 Center <content styleCode="Christina lics"> (4.5-8.0 )</content> Nitrite NEGATIVE <content Saint [Presence] in styleCode="Layla Lucrecia Urine by Test d">Urine Medical strip Nitrite Center </content>NEGA TIVE <content styleCode="Christina lics"> (NEGATIVE )</content> Leukocyte NEGATIVE <content Saint esterase styleCode="Layla Lucrecia [Presence] in d">Urine Medical Urine by Test Leukocyte Center strip </content>NEGA TIVE <content styleCode="Christina lics"> (NEGATIVE )</content> Urobilinogen 0.2-1.0 <content Saint [Units/volume] styleCode="Layla Lucrecia in Urine by d">Urine Medical Test strip Urobilinogen Center </content>0.2 MG/DL<content styleCode="Christina lics"> (0.2-1.0 MG/DL)</conten t> UNK 0-3 <content Saint styleCode="Layla Lucrecia d">Urine White Medical Blood Cell Center </content>0-3 HPF<content styleCode="Christina lics"> (0-3 HPF)</content> UNK 0-3 <content Saint styleCode="Layla Lucrecia d">Urine Red Medical Blood Cell Center </content>0-3 HPF<content styleCode="Christina lics"> (0-3 HPF)</content> ID Date Data Source Hormones.[id number] 05/19/2019 05:40:00 AM EST [facility]and t [facility] Name Value Range Interpretation Description Data Sup porting Code Source(s) Document(s ) Thyrotropin 0.465-4. <content Saint [Units/volume] 68 styleCode="Layla Lucrecia in Serum or d">Thyroid Medical Plasma by Stimulating Center Detection Hormone limit <= 0.05 </content>0.49 mIU/L 2 MIU/L<content styleCode="Christina lics"> (0.465-4.68 MIU/L)</conten t> ID Date Data Source HematologyRou.[id number] 05/19/2019 05:40:00 AM EST [facility] 0500 Name Value Range Interpretation Description Data [...] (0.0 KCUMM)</content > ID Date Data Source GFR(Creatinine).[id number] 05/19/2019 05:40:00 AM [facility] 0-0500 Name Value Range Interpretation Code Description Data Debra rce(s) Supporting Document(s ) UNK > 60 <content [facility] Lucrecia styleCode="Bold"> Medical Cent er EGFR </content>127 GFR<content styleCode="Italic s"> (> 60 GFR)</content> ID Date Data Source CHMROUTINECCDA.[id number] 05/19/2019 05:40:00 AM [facility] -0500 Name Value Range Interpretation Description [...] (1.6-2.3 MG/DL)</conten t> ID Date Data Source [facility].[id number] 05/19/2019 05:40:00 AM EST [facility] Name Value Range Interpretation [...] Lucrecia in Serum or d">Creatinine Medical Plasma </content>0.6 Center MG/DL<content styleCode="Christina lics"> (0.5-1.3 MG/DL)</conten t> Glucose 74-106 Above high normal <content Saint [Mass/volume] styleCode="Layla Singer in Serum or d">Glucose Medical Plasma </content>128 Center MG/DL H<content styleCode="Christina lics"> (74-106 MG/DL)</conten t> Carbon 22-30 <content Saint dioxide, total styleCode="Layla Singer [Moles/volume] d">Carbon Medical in Serum or Dioxide Center Plasma </content>30 MEQ/L<content styleCode="Christina lics"> (22-30 MEQ/L)</conten t> Calcium 8.4-10.2 <content Saint [Mass/volume] styleCode="Layla Singer in Serum or d">Calcium Medical Plasma </content>9.8 Center MG/DL<content styleCode="Christina lics"> (8.4-10.2 MG/DL)</conten t> UNK > 60 <content Saint styleCode="Layla Singer d">EGFR Medical </content>127 Center GFR<content styleCode="Christina lics"> (> 60 GFR)</content> ID Date Data Source Liver 05/18/2019 08:00:00 PM EST [facility] Profile.[id number] Name Value Range Interpretation Description Data Sup [...] MG/DL)</content> Alkaline 38-126 <content Saint phosphatase styleCode="Bold"> [facility] [Enzymatic Alkaline Medical activity/volume] Phosphatase (ALP) Cente r in Serum or Plasma </content>71 IU/L<content styleCode="Italic s"> (38-126 IU/L)</content> ID Date Data Source Coagulation 05/18/2019 08:00:00 PM [facility] Rout.[id number] EST Name Value Range Interpretation Description Data [...] cs"> (0.80-1.20 #)</content> ID Date Data Source CardiacMarkers.[id number] 05/18/2019 08:00:00 PM EST [facility] -0500 Name Value Range Interpretation Description Data Sup porting Code Source(s) Document(s ) Creatine 30-135 <content Saint [facility] kinase styleCode="Bold Medical [Enzymatic ">CK Center activity/vol </content>59 ume] in IU/L<content Serum or styleCode="Ital Plasma ics"> (30-135 IU/L)</content> ID Date Data Source HematologyRou.[id number] 05/18/2019 08:00:00 PM EST [facility] 0500 Name Value Range Interpretation Description Data [...] Lucrecia Blood by ">Basophil Medical Automated count </content>0.2 [...] (0.0 KCUMM)</content > ID Date Data Source GFR(Creatinine).[id number] 05/18/2019 08:00:00 PM [facility] 0-0500 Name Value Range Interpretation Code Description Data Debra rce(s) Supporting Document(s ) UNK > 60 <content [facility] Castillos styleCode="Bold"> Medical Cent er EGFR </content>127 GFR<content styleCode="Italic s"> (> 60 GFR)</content> ID Date Data Source CHMROUTINECCDA.[id number] 05/18/2019 08:00:00 PM [facility] -0500 Name Value Range Interpretation Description Data Sup porting Code Source(s) Document(s ) Protein 6.3-8.2 <content Lucrecia [Mass/volum styleCode="Bold Medical e] in Serum ">Total Protein Center or Plasma </content>6.8 G/DL<content styleCode="Ital ics"> (6.3-8.2 G/DL)</content> UNK >= 1.0 <content Saint [facility] styleCode="Bold Medical ">AG Ratio Center </content>1.3 <content styleCode="Ital ics"> (>= 1.0 )</content> UNK 2.3-3.5 <content Saint Lucrecia styleCode="Bold Medical ">Globulin Center </content>2.9 G/DL<content styleCode="Ital ics"> (2.3-3.5 G/DL)</content> ID Date Data Source [facility].[id number] 05/18/2019 08:00:00 PM EST [facility] Name Value Range Interpretation Description Data Sup porting Code Source(s) Document(s ) Potassium 3.5-5.3 Below low <content Saint [Moles/volume] in normal styleCode="Bold"> [facility] Serum or Plasma Potassium Medical </content>3.2 Center [...] Ever completed Denies Ever Smoked [facility] Lucrecia 04:52:00 PM EST Smoked Medical C enter Vital Signs ID Date Data Source UNK Name Value Range Interpretation Code Description Data Source(s) Body temperature 36.028299 36.031690 [facility] Respiratory rate 18 /min 18 /min [facility] Heart rate 64 /min 64 /min [facility] Diastolic blood 64 mm[Hg] 64 mm[Hg] [facility] Systolic blood 157 mm[Hg] 157 mm[Hg] [facility] Body temperature 36.205570 36.695321 [facility] Respiratory rate 18 /min 18 /min [facility] Heart rate 79 /min 79 /min [facility] Diastolic blood 81 mm[Hg] 81 mm[Hg] [facility] Systolic blood 129 mm[Hg] 129 mm[Hg] [facility] Body temperature 36.774504 36.357144 [facility] Respiratory rate 18 /min 18 /min [facility] Heart rate 75 /min 75 /min [facility] Diastolic blood 64 mm[Hg] 64 mm[Hg] [facility] Systolic blood 134 mm[Hg] 134 mm[Hg] [facility] Oxygen saturation 96 % 96 % [facility] blood [facility] by Pulse oximetry Body temperature 36.098150 36.853314 [facility] Respiratory rate 19 /min 19 /min [facility] Heart rate 85 /min 85 /min [facility] Diastolic blood 89 mm[Hg] 89 mm[Hg] [facility] Systolic blood 198 mm[Hg] 198 mm[Hg] [facility] Body temperature 36.987043 36.492862 [facility] Respiratory rate 18 /min 18 /min [facility] Heart rate 73 /min 73 /min [facility] Diastolic blood 76 mm[Hg] 76 mm[Hg] [facility] Center Systolic blood 130 mm[Hg] 130 mm[Hg] [facility] Oxygen saturation 97 % 97 % [facility] Arterial blood Medical [place] by Pulse oximetry Oxygen saturation 98 % 98 % [facility] Arterial blood Medical Center by Pulse oximetry Oxygen saturation 94 % 94 % [facility] Arterial blood Medical Center by Pulse oximetry Body weight 65.147586 kg 65.398749 kg [facility] Body height 162.693640 162.881769 cm [facility] Body mass index 24.92 kg/m2 24.92 kg/m2 [facility] (BMI) [Ratio] Medical [address] [facility] Oxygen saturation 97 % 97 % [facility] blood Medical Center by Pulse oximetry Body weight 66.962374 kg 66.816054 kg [facility] Body temperature 37.982573 37.420920 [facility] Respiratory rate 19 /min 19 /min [facility] Oxygen saturation 94 % 94 % [facility] Arter[facility] by Pulse oximetry Heart rate 97 /min 97 /min [facility] Diastolic blood 78 mm[Hg] 78 mm[Hg] [facility] pressure Medical Center Systolic blood 157 mm[Hg] 157 mm[Hg] [facility] Body temperature 37.623720 37.549212 [facility] Respiratory rate 20 /min 20 /min [facility] Oxygen saturation 95 % 95 % [facility] Arterial blood [facility] by Pulse oximetry Heart rate 113 /min 113 /min [facility] Diastolic blood 80 mm[Hg] 80 mm[Hg] [facility] Systolic blood 172 mm[Hg] 172 mm[Hg] [facility] Body temperature 37.953339 37.599770 [facility] Respiratory rate 20 /min 20 /min [facility] Oxygen saturation 93 % 93 % [facility] Arterial blood [facility] by Pulse oximetry Heart rate 105 /min 105 /min [facility] Diastolic blood 80 mm[Hg] 80 mm[Hg] [facility] Systolic blood 165 mm[Hg] 165 mm[Hg] [facility] Body temperature 36.854062 36.506642 [facility] Respiratory rate 17 /min 17 /min [facility] Oxygen saturation 98 % 98 % [facility] Arterial blood [facility] by Pulse oximetry Heart rate 99 /min 99 /min [facility] Diastolic blood 76 mm[Hg] 76 mm[Hg] [facility] Systolic blood 159 mm[Hg] 159 mm[Hg] [facility] Body temperature 37.984675 37.280340 [facility] Respiratory rate 24 /min 24 /min [facility] Oxygen saturation 93 % 93 % [facility] Arterial blood [facility] by Pulse oximetry Heart rate 113 /min 113 /min [facility] Diastolic blood 86 mm[Hg] 86 mm[Hg] [facility] Systolic blood 156 mm[Hg] 156 mm[Hg] [facility] Body weight 69.453031 kg 69.091374 kg [facility] Body height 162.923691 162.280498 cm [facility] Body mass index 26.2 kg/m2 26.2 kg/m2 [facility] (BMI) [Ratio] Medical [facility] Body temperature 36.084686 36.838264 [facility] Respiratory rate 18 /min 18 /min [facility] Heart rate 67 /min 67 /min [facility] Diastolic blood 74 mm[Hg] 74 mm[Hg] [facility] Systolic blood 158 mm[Hg] 158 mm[Hg] [facility] Body weight 69.154960 kg 69.342965 kg [facility] Body height 162.758075 162.343396 cm [facility] Body mass index 26.30 kg/m2 26.30 kg/m2 [facility] (BMI) [Ratio] Medical [facility] Body temperature 36.243144 36.209459 [facility] Respiratory rate 18 /min 18 /min [facility] Oxygen saturation 97 % 97 % [facility] in Arterial blood [facility] by Pulse oximetry Heart rate 67 /min 67 /min [facility] Diastolic blood 81 mm[Hg] 81 mm[Hg] [facility] Systolic blood 152 mm[Hg] 152 mm[Hg] [facility] Body temperature 36.726623 36.679438 [facility] Respiratory rate 18 /min 18 /min [facility] Heart rate 76 /min 76 /min [facility] Diastolic blood 70 mm[Hg] 70 mm[Hg] [facility] Systolic blood 145 mm[Hg] 145 mm[Hg] [facility] Heart rate 64 /min 64 /min [facility] Diastolic blood 80 mm[Hg] 80 mm[Hg] [facility] Systolic blood 142 mm[Hg] 142 mm[Hg] [facility] Body temperature 36.759298 36.592118 [facility] Respiratory rate 20 /min 20 /min [facility] Heart rate 65 /min 65 /min [facility] Diastolic blood 62 mm[Hg] 62 mm[Hg] [facility] Systolic blood 160 mm[Hg] 160 mm[Hg] [facility] [place] Body weight 69.914535 kg 69.413855 kg [facility] Body height 162.567008 162.613607 cm [facility] Body mass index 26.30 kg/m2 26.30 kg/m2 [facility] osep (BMI) [Ratio] Medical [facility] Body temperature 37.482553 37.674951 [facility] Respiratory rate 20 /min 20 /min [facility] Body temperature 36.533631 36.341351 [facility] Respiratory rate 18 /min 18 /min [facility] Heart rate 69 /min 69 /min [facility] Diastolic blood 70 mm[Hg] 70 mm[Hg] [facility] Systolic blood 178 mm[Hg] 178 mm[Hg] [facility] Body temperature 36.059130 36.959020 [facility] Respiratory rate 16 /min 16 /min [facility] Heart rate 74 /min 74 /min [facility] Diastolic blood 86 mm[Hg] 86 mm[Hg] [facility] Systolic blood 190 mm[Hg] 190 mm[Hg] [facility] Body temperature 36.406854 36.390204 [facility] Respiratory rate 20 /min 20 /min [facility] Heart rate 68 /min 68 /min [facility] Diastolic blood 86 mm[Hg] 86 mm[Hg] [facility] Systolic blood 179 mm[Hg] 179 mm[Hg] [facility] [place] Body weight 69.502840 kg 69.206086 kg [facility] Oxygen saturation 95 % 95 % [facility] in Arterial blood [facility] by Pulse oximetry Body height 162.650609 162.930363 cm [facility] Body mass index 26.30 kg/m2 26.30 kg/m2 [facility] (BMI) [Ratio] Medical [address] Body temperature 36.521955 36.305194 [facility] Respiratory rate 18 /min 18 /min [facility] Heart rate 69 /min 69 /min [facility] Diastolic blood 87 mm[Hg] 87 mm[Hg] [facility] pressure [facility] Center Systolic blood 179 mm[Hg] 179 mm[Hg] [facility] Oxygen saturation 97 % 97 % [facility] Arterial blood [facility] by Pulse oximetry Body temperature 37.219777 37.052749 [facility] Respiratory rate 18 /min 18 /min [facility] Heart rate 76 /min 76 /min [facility] Diastolic blood 83 mm[Hg] 83 mm[Hg] [facility] pressure [facility] Center Systolic blood 176 mm[Hg] 176 mm[Hg] [facility] Oxygen saturation 97 % 97 % [facility] Arterial blood [facility] by Pulse oximetry Body weight 65.834042 kg 65.333383 kg [facility] Oxygen saturation 97 % 97 % [facility] Ar[facility] blood [facility] by Pulse oximetry Body height 162.149840 162.211330 cm [facility] Body mass index 24.5 kg/m2 24.5 kg/m2 [facility] (BMI) [Ratio] Medical [address]
[2020-04-18] MEDS ORDERED: SODIUM CHLORIDE 250 ML IV ONE (09:00)
[2020-04-18] MEDS ORDERED: DENOSUMAB 120 MG/1.7 ML VIAL SQ ONE (10:00)
[2020-04-18] MEDS ORDERED: BORTEZOMIB (VELCADE) 2.5 MG/ML SUB-Q INJECTION SQ ONE (10:00)
[2020-04-18] MEDS ORDERED: DEXAMETHASONE 4 MG TABLET (FP) PO ONE (10:00)
[2020-04-18 15:11] LABS: HEMATOCRIT 28.3 % (32.4-45.2); HEMOGLOBIN 9.2 GM/dL (10.7-15.3); LYMPH % 7.4 % (8-40); MCH 30.1 pg (25.7-33.7); MCHC 32.5 g/dl (32.0-36.0); MEAN CELL VOLUME 92.7 fl (80-96); MEAN PLT VOLUME 9.3 fl (7.5-11.1); MONO % 7.6 % (3.8-10.2); PLATELET COUNT 135 K/MM3 (134-434); RBC 3.05 M/mm3 (3.60-5.2); WHITE BLOOD COUNT 10.3 K/mm3 (4.0-10.0)
[2020-04-18] MEDS ORDERED: amLODIPine BESYLATE 5 MG TABLET (FP) PO ONE ×2 (15:15→17:03)
[2020-04-18] MEDS ORDERED: LIDOCAINE 5% TOPICAL PATCH TP ONE (15:15)
[2020-04-18] MEDS ORDERED: oxyCODONE HCL 5 MG TABLET PO ONE (15:15)
[2020-04-18 15:51] LABS: ALBUMIN 3.2 g/dl (3.4-5.0); BILIRUBIN,DIRECT 0.1 mg/dL (0.0-0.2); BILIRUBIN,TOTAL 0.4 mg/dL (0.2-1); BLOOD UREA NITROGEN 17.2 mg/dL (7-18); CREATININE 0.8 mg/dL (0.55-1.3); POTASSIUM 3.1 mmol/L (3.5-5.1); TOT PROT 5.9 g/dl (6.4-8.2); URIC ACID 4.5 mg/dL (2.6-7.2)
[2020-04-18] MEDS ORDERED: POTASSIUM CHLORIDE TABS 20 MEQ TABLET.ER (FP) PO ONE (15:59)
[2020-04-18 18:07] VITALS: TEMP 99.3
[2020-04-18 18:27] VITALS: BP 187/80; PULSE 79
[2020-04-18] MEDS ORDERED: LIDOCAINE PATCH REMOVAL MC SCH (22:00)
== END 2020-04-18 18:00 | disposition home or self-care (01) ==
LOC: JONCCHEMO 06:41
PROVIDERS: ATTEND Internal Medicine Hematology & Oncology
PROC: 3E03305 Introduction of Other Antineoplastic into Peripheral Vein, Percutaneous Approach (ICD-10-PCS; principal; 2020-04-18)
PROC: 3E013GC Introduction of Other Therapeutic Substance into Subcutaneous Tissue, Percutaneous Approach (ICD-10-PCS; 2020-04-18)
PROC: 3E0337Z Introduction of Electrolytic and Water Balance Substance into Peripheral Vein, Percutaneous Approach (ICD-10-PCS; 2020-04-18)
DX: Z51.11 Encounter for antineoplastic chemotherapy (principal); C90.00 Multiple myeloma not having achieved remission; I10 Essential (primary) hypertension; E11.9 Type 2 diabetes mellitus without complications; E78.5 Hyperlipidemia, unspecified
CPT/HCPCS: 36415; 80048; 80076; 83615; 83735; 84550; 85025; 96360; 96361; 96372; 96401; J0897; J9041

== ENCOUNTER 2020-05-09 07:17 | Day surgery (SDC) | payer OTHER, BC ==
--- OUTSIDE RECORDS SUMMARY | 2020-05-09 07:24 | XMS ---
:1950 [facility] Providers Name Role Phone SHANITA BRUAN Unavailable Unavailable ED STAFF PHYSICIAN, STAFF Unavailable [...] is protected by Article 27-F of the [place] State Public Health law. If you continue you may haveaccess to information: Regarding HIV / AIDS; Provided by facilities licensed or operated by the [facility] Office of Mental Health; or Provided by the [facility] Office for People With Developmental Disabilities. If such information is present, then the following [facility] mandated warning applies: This information has [...] law may result in a fine or [place] health [place] sentence or both. A general authorization for the release of medical or other information is NOT sufficient authorization for further disclosure. Encounters Encounter Providers Location Date Indications Data Source(s ) Inpatient Attender: SHANITA CARPENTER 10/06/2019 [facility] 01:30:00 PM EDT [facility] AAttender: STAFF ED - 10/20/2019 STAFF 05:15:00 PM EDT PHYSICIANAdmitter: SHANITA DIEHL AReferrer: SHANITA DIEHL A Patient discharged. Inpatient Attender: Solomon SahaHAL5 05/18/2019 04:44:00 [facility] MDAttender: STAFF ED STAFF PM EST - 05/23/2019 [facility] PHYSICIANAdmitter: Solomon 04:18:00 PM JOSEPH Green MDReferrer: Solomon Green MD Patient discharged. Immunizations Vaccine Date Status Description Data Source(s) New in 2011. IIV4 05/23/2019 completed [facility] 03:31:00 PM EST Center pneumococcal 05/20/2019 [facility] 11:33:00 AM EST Cent er Insurance Providers Payer name Policy type Policy ID Covered Covered democrat's Policy P augustina / Coverage democrat ID relationship to Sosa Inf ormation type sosa BLUE CROSS [id number] SP [id number] SUPP PLAN MEDICARE [id number] SP [id number] BC PPO [id number] SP [id number] BLUE CROSS [id number] SP [id number] SUPP PLAN M [id number] 01 [id number] M [id number] 01 [id number] BLUE CROSS O [id number] 01 [id number] BLUE CROSS O [id number] 01 [id number] M [id number] 01 [id number] M [id number] 01 [id number] MEDICARE [id number] SP [id number] BC PPO [id number] SP [id number] BLUE CROSS O [id number] 01 [id number] SECONDARY M [id number] 01 [id number] A MEDICARE [id number] SP [id number] A Problems, Conditions, and Diagnoses Code Display Name Description Problem Type Effective Data Dates Source(s) D64.9 Anemia, ANEMIA, Diagnosis 10/20/2019 [facility] unspecified UNSPECIFIED 05:15:00 PM Medical EDT Center E78.5 Hyperlipidemia, HYPERLIPIDEMIA, Diagnosis 10/20/2019 [facility] unspecified UNSPECIFIED 05:15:00 PM Medical EDT Center E87.6 Hypokalemia HYPOKALEMIA Diagnosis 10/20/2019 Smil[facility] 05:15:00 PM Medical EDT Center E11.65 Type 2 diabetes TYPE 2 DIABETES Diagnosis 10/20/2019 Anandaddis Castillos mellitus with MELLITUS WITH 05:15:00 PM Medical hyperglycemia HYPERGLYCEMIA EDT Center J96.01 Acute respiratory ACUTE RESPIRATORY Diagnosis 10/20/2019 [facility] failure with FAILURE WITH 05:15:00 PM Medical hypoxia HYPOXIA EDT Center J12.89 Other viral OTHER VIRAL Diagnosis 10/20/2019 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 [facility] (current) use of (CURRENT) USE OF 05:15:00 PM M edical oral hypoglycemic ORAL HYPOGLYCEMIC EDT Center drugs DRUGS J18.9 Pneumonia, PNEUMONIA, Diagnosis 10/06/2019 [facility] unspecified UNSPECIFIED 01:30:00 PM Medical organism ORGANISM EDT Center 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 05/23/2019 Anand Singer thyroid nodule THYROID NODULE 04:18:00 PM Medic al EST Center I10 Essential ESSENTIAL Diagnosis 05/23/2019 [facility] (primary) (PRIMARY) 04:18:00 PM Medical hypertension HYPERTENSION EST Center I16.0 Hypertensive HYPERTENSIVE Diagnosis 05/23/2019 [facility] urgency URGENCY 04:18:00 PM Medical EST [...] FX fracture Results ID Date Data Source [id number] 01/19/2020 08:00:00 PM EDT [facility] Name Value Range Interpretation Description Data Sup porting Code Source(s) Document(s ) SARS [facility] coronavirus 2 RNA This lab was ordered by [facility] and reported by [facility]. ID Date Data Source [id number] 01/03/2020 10:35:00 AM EDT [facility] Name Value Range Interpretation Description Data Sup porting Code Source(s) Document(s ) SARS [facility] CORONAVIRUS 2 RNA This lab was ordered by [facility] and reported by [facility]. ID Date Data Source [id number] 12/27/2019 12:00:00 AM EDT [facility] Name Value Range Interpretation Code Description Data Debra rce(s) Supporting Document(s ) 2018-nCoV [facility] RNA XXX TOM+probe- Imp This lab was ordered by [email or web address] and reported by [facility] ID Date Data Source [id number] 12/06/2019 12:00:00 AM EDT [facility] Name Value Range Interpretation Code Description Data Debra rce(s) Supporting Document(s ) 2018-nCoV [facility] RNA XXX TOM+probe- Imp This lab was ordered by [employer] and reported by [facility] ID Date Data Source Liver 10/19/2019 06:58:00 AM EDT [facility] Profile.[id number] Name Value Range Interpretation Description Data Sup [...] s"> (3.5-5.0 G/DL)</content> ID Date Data Source HematologyRou.[id number] 10/19/2019 06:58:00 AM EDT [facility] 0400 Name Value Range Interpretation Description Data [...] low normal <content Saint [Volume 0 styleCode="Bold Lucreica Fraction] of ">Hematocrit Medical Blood by </content>31.6 [...] (0.0 KCUMM)</content > ID Date Data Source GFR(Creatinine).[id number] 10/19/2019 06:58:[address] [facility] 0-0400 Name Value Range Interpretation Code Description Data Debra rce(s) Supporting Document(s ) UNK > 60 <content [facility] styleCode="Bold"> Medical Cent er EGFR </content>70 GFR<content styleCode="Italic s"> (> 60 GFR)</content> ID Date Data Source CHMROUTINECCDA.[id number] 10/19/2019 06:58:[address] [facility] -0400 Name Value Range Interpretation Description [...] ics"> (316-618 IU/L)</content> ID Date Data Source BMP.[id number] 10/19/2019 06:58:00 AM EDT [facility] Name Value Range Interpretation Description Data [...] Data Source Liver 10/17/2019 07:30:00 AM EDT [facility] Profile.[id number] Name Value Range Interpretation Description Data Sup [...] s"> (3.5-5.0 G/DL)</content> ID Date Data Source HematologyRou.[id number] 10/17/2019 07:30:00 AM EDT [facility] 0400 Name Value Range Interpretation Description Data Sup porting Code Source(s) Document(s ) Erythrocytes 4.0-5.1 Below low normal <content Saint [#/volume] in styleCode="Bold [facility] Blood by ">Red Blood Medical Automated count Cell Count Center </content>3.99 MCUMM L<content styleCode="Ital ics"> (4.0-5.1 MCUMM)</content > Hematocrit 36.0-46. Below low normal <content Saint [Volume 0 styleCode="Bold [facility] Fraction] of ">Hematocrit Medical Blood by </content>34.9 Center Automated count % L<content styleCode="Ital ics"> (36.0-46.0 %)</content> Hemoglobin 12.3-16. Below low normal <content Saint [Mass/volume] in 0 styleCode="Bold [facility] Blood ">Hemoglobin Medical </content>11.2 Center G/DL L<content styleCode="Ital ics"> (12.3-16.0 G/DL)</content> Leukocytes 4.4-11.0 Above high <content Saint [#/volume] in normal styleCode="Bold [facility] Blood by ">White Blood Medical Automated [...] ics"> (0 /100)</content> ID Date Data Source GFR(Creatinine).[id number] 10/17/2019 07:30:[address] [facility] 0-0400 Name Value Range Interpretation Code Description Data Debra rce(s) Supporting Document(s ) UNK > 60 <content [facility] styleCode="Bold"> Medical Cent er EGFR </content>79 GFR<content styleCode="Italic s"> (> 60 GFR)</content> ID Date Data Source Coagulation 10/17/2019 07:30:00 AM [facility] ical Center Rout.[id number] EDT Name Value Range Interpretation Code Description Data Debra rce(s) Supporting Document(s ) UNK < 500 Above upper panic <content Smil[facility] limits styleCode="Bold"> Medical Cent er D-Dimer </content><conten t styleCode="Bold"> 2112 ngFEU HH</content><cont ent styleCode="Italic s"> (< 500 ngFEU)</content> ID Date Data Source CHMROUTINECCDA.[id number] 10/17/2019 07:30:[address] [facility] -0400 Name Value Range Interpretation Description [...] (1.6-2.3 MG/DL)</conten t> ID Date Data Source [facility].[id number] 10/17/2019 07:30:00 AM EDT [facility] Name Value Range Interpretation Description Data Sup porting Code Source(s) Document(s ) Potassium 3.5-5.3 <content [facility] [Moles/volume] in styleCode="Bold"> [facility] Serum or Plasma Potassium Medical </content>4.0 Center MEQ/L<content styleCode="Italic s"> (3.5-5.3 MEQ/L)</content> Chloride 98-107 Below low <content Saint [Moles/volume] in normal styleCode="Bold"> [facility] Serum or Plasma Chloride Medical </content>95 Center MEQ/L L<content styleCode="Italic s"> (98-107 MEQ/L)</content> Sodium 137-145 <content Saint [Moles/volume] in styleCode="Bold"> [facility] Serum or Plasma Sodium Medical </content>138 Center [...] Data Source Liver 10/16/2019 06:05:00 AM EDT [facility] Profile.[id number] Name Value Range Interpretation Description Data Sup [...] Above high <content [facility] phosphatase normal styleCode="Bold"> [facility] [Enzymatic Alkaline Medical activity/volume] Phosphatase (ALP) [...] s"> (3.5-5.0 G/DL)</content> ID Date Data Source HematologyRou.[id number] 10/16/2019 06:05:00 AM EDT [facility] 0400 Name Value Range Interpretation Description Data [...] ics"> (NORMAL )</content> ID Date Data Source GFR(Creatinine).[id number] 10/16/2019 06:05:[address] [facility] 0-0400 Name Value Range Interpretation Code Description Data Debra rce(s) Supporting Document(s ) UNK > 60 <content [facility] styleCode="Bold"> Medical Cent er EGFR </content>79 GFR<content styleCode="Italic s"> (> 60 GFR)</content> ID Date Data Source CHMROUTINECCDA.[id number] 10/16/2019 06:05:[address] [facility] -0400 Name Value Range Interpretation Description [...] ics"> (6.3-8.2 G/DL)</content> ID Date Data Source CardiacMarkers.[id number] 10/16/2019 06:05:[address] [facility] -0400 Name Value Range Interpretation Description Data Sup porting Code Source(s) Document(s ) Troponin < 0.034 <content Saint I.cardiac styleCode="Bold Lucrecia [Mass/volume ">Troponin I Medical ] in Serum </content>< Center or Plasma 0.012 NG/ML<content styleCode="Ital ics"> (< 0.034 NG/ML)</content > ID Date Data Source [facility].[id number] 10/16/2019 06:05:[address] [facility] Name Value Range Interpretation Description Data Sup porting Code Source(s) Document(s ) Chloride 98-107 Below low <content Saint [Moles/volume] in normal styleCode="Bold"> [facility] Serum or Plasma Chloride Medical </content>94 Center MEQ/L L<content styleCode="Italic s"> (98-107 MEQ/L)</content> Sodium 137-145 <content [facility] [Moles/volume] in styleCode="Bold"> [facility] Serum or Plasma Sodium Medical </content>137 Center MEQ/L<content styleCode="Italic s"> (137-145 MEQ/L)</content> Carbon dioxide, 22-30 Above high <content [facility] total normal styleCode="Bold"> Lucrecia [Moles/volume] in Carbon Dioxide Medical Serum or Plasma </content>33 Center MEQ/L H<content styleCode="Italic s"> (22-30 MEQ/L)</content> Potassium 3.5-5.3 <content [facility] [Moles/volume] in styleCode="Bold"> [facility] Serum or Plasma Potassium Medical </content>4.5 Center [...] s"> (3.5-5.0 G/DL)</content> ID Date Data Source HematologyRou.[id number] 10/13/2019 05:35:00 AM EDT [facility] 0400 Name Value Range Interpretation Description Data [...] ics"> (2-9 %)</content> ID Date Data Source [id number] 10/12/2019 01:35:[address] [facility] -0400 Name Value Range Interpretation Description Data Sup porting Code Source(s) Document(s ) Lactate 0.7-2.0 Above upper panic <content Smilax [facility] [Mass/volum limits styleCode="Bold Medical e] in Serum ">Lactic Acid Center or Plasma </content><cont ent styleCode="Bold ">3.6 MMOLL HH</content><co ntent styleCode="Ital ics"> (0.7-2.0 MMOLL)</content > ID Date Data Source HematologySpeci.[id number] 10/12/2019 01:28:[address] [facility] 0-0400 Name Value Range Interpretation Description Data Sup porting Code Source(s) Document(s ) C reactive < 3.0 Above high normal <content [facility] protein styleCode="Bold Medical [Mass/volume ">C-Reactive Center ] in Serum Protein or Plasma </content>> 15.0 MG/L H<content styleCode="Ital ics"> (< 3.0 MG/L)</content> ID Date Data Source [facility][id number] 10/12/2019 01:28:[address] [facility] -0400 Name Value Range Interpretation Description [...] Data Source Liver 10/11/2019 05:45:00 AM EDT [facility] Profile.[id number] Name Value Range Interpretation Description Data Sup [...] s"> (0.2-1.3 MG/DL)</content> ID Date Data Source GFR(Creatinine).[id number] 10/11/2019 05:45:00 [facility] Name Value Range Interpretation Code Description Data Debra rce(s) Supporting Document(s ) UNK > 60 <content [facility] styleCode="Bold"> Medical Cent er EGFR </content>79 GFR<content styleCode="Italic s"> (> 60 GFR)</content> ID Date Data Source BMP.[id number] 10/11/2019 05:45:[address] [facility] [...] 7-17 Above high <content Saint normal styleCode="Bold"> [facility] BUN </content>21 Medical MG/DL H<content Center styleCode="Italic [...] s"> (3.5-5.0 G/DL)</content> ID Date Data Source HematologyRou.[id number] 10/11/2019 05:10:[address] [facility] 0400 Name Value Range Interpretation Description [...] Date Data Source Coagulation 10/11/2019 05:10:00 AM [facility] Rout.[id number] EDT Name Value Range Interpretation Code Description Data Debra rce(s) Supporting Document(s ) UNK < 500 Above upper panic <content Smilax s limits styleCode="Bold"> Medical Cent er D-Dimer </content><conten t styleCode="Bold"> 5198 ngFEU HH</content><cont ent styleCode="Italic s"> (< 500 ngFEU)</content> ID Date Data Source HematologySpeci.[id number] 10/10/2019 05:35:00 PM EDT [facility] 0-0400 Name Value Range Interpretation Description Data Sup porting Code Source(s) Document(s ) C reactive < 3.0 Above high normal <content [facility] protein styleCode="Bold Medical [Mass/volume ">C-Reactive Center ] in Serum Protein or Plasma </content>> 15.0 MG/L H<content styleCode="Ital ics"> (< 3.0 MG/L)</content> ID Date Data Source Liver 10/09/2019 05:10:00 AM EDT [facility] Profile.[id number] Name Value Range Interpretation Description Data Sup [...] G/DL)</content> Alkaline 38-126 <content [facility] phosphatase styleCode="Bold"> [facility] [Enzymatic Alkaline Medical activity/volume] Phosphatase (ALP) Cente r in Serum or Plasma </content>99 IU/L<content styleCode="Italic s"> (38-126 IU/L)</content> ID Date Data Source GFR(Creatinine).[id number] 10/09/2019 05:10:[address] [facility] 0-0400 Name Value Range Interpretation Code Description Data Debra rce(s) Supporting Document(s ) UNK > 60 <content [facility] styleCode="Bold"> Medical Cent er EGFR </content>70 GFR<content styleCode="Italic s"> (> 60 GFR)</content> ID Date Data Source [facility].[id number] 10/09/2019 05:10:[address] [facility] Name Value Range Interpretation Description Data Sup porting Code Source(s) Document(s ) Chloride 98-107 <content [facility] [Moles/volume] in styleCode="Bold"> [facility] Serum or Plasma Chloride Medical </content>98 Center MEQ/L<content styleCode="Italic s"> (98-107 MEQ/L)</content> Potassium 3.5-5.3 <content [facility] [Moles/volume] in styleCode="Bold"> [facility] Serum or Plasma Potassium Medical </content>3.6 Center [...] s"> (38-126 IU/L)</content> ID Date Data Source HematologySpeci.[id number] 10/08/2019 04:14:[address] [facility] 0-0400 Name Value Range Interpretation Description Data Sup porting Code Source(s) Document(s ) C reactive < 3.0 Above high normal <content [facility] hs protein styleCode="Bold Medical [Mass/volume ">C-Reactive Center ] in Serum Protein or Plasma </content>> 15.0 MG/L H<content styleCode="Ital ics"> (< 3.0 MG/L)</content> ID Date Data Source CardiacMarkers.[id number] 10/08/2019 04:14:[address] [facility] -0400 Name Value Range Interpretation Description Data Sup porting Code Source(s) Document(s ) Troponin < 0.034 Above upper panic <content [facility] I.cardiac limits styleCode="Bold Lucrecia [Mass/volume ">Troponin I Medical ] in Serum </content><cont Center or Plasma ent styleCode="Bold ">0.037 NG/ML HH</content><co ntent styleCode="Ital ics"> (< 0.034 NG/ML)</content > ID Date Data Source HematologyRou.[id number] 10/07/2019 04:10:00 AM EDT [facility] 0400 Name Value Range Interpretation Description Data [...] (0-0.1 KCUMM)</content > ID Date Data Source GFR(Creatinine).[id number] 10/07/2019 04:10:[address] [facility] 0-0400 Name Value Range Interpretation Code Description Data Debra rce(s) Supporting Document(s ) UNK > 60 <content [facility] styleCode="Bold"> Medical Cent er EGFR </content>79 GFR<content styleCode="Italic s"> (> 60 GFR)</content> ID Date Data Source [facility].[id number] 10/07/2019 04:10:[address] [facility] [...] t> Chloride 98-107 <content [facility] [Moles/volume] styleCode="Layla Ulcrecia in Serum or d">Chloride Medical Plasma </content>100 Center MEQ/L<content styleCode="Christina lics"> (98-107 MEQ/L)</conten t> UNK > 60 <content Saint styleCode="Layla Lucrecia d">EGFR Medical </content>79 Center GFR<content styleCode="Christina lics"> (> 60 GFR)</content> Calcium 8.4-10.2 <content Saint [Mass/volume] styleCode="Layla Lucrecia in Serum or d">Calcium Medical Plasma </content>9.5 Center MG/DL<content styleCode="Christina lics"> (8.4-10.2 MG/DL)</conten t> ID Date Data Source CHMROUTINECCDA.[id number] 10/06/2019 07:30:[address] [facility] -0400 Name Value Range Interpretation Code Description Data Debra rce(s) Supporting Document(s ) UNK 0.7-2.0 <content [facility] styleCode="Bold" Medical Cente r >Lactic Acid 4hr </content>0.9 MMOLL<content styleCode="Itali cs"> (0.7-2.0 MMOLL)</content> ID Date Data Source Microbiology.[id number] 10/06/2019 04:20:[address] [facility] 400 Name Value Range Interpretation Code Description Data Debra rce(s) Supporting Document(s ) UNK <item><content Lucrecia styleCode="Bold"> Medical [facility] er Culture Report </content>
<t able><tbody><tr>< td>Specimen Number:</td><td>[id number]</td></tr ><tr><td>Sample Collection Date/Time: </td><td>10/06/2019 4:20 PM</td></tr><tr>< td>Specimen Source:</td><td>B LOOD</td></tr><tr ><td>Blood Culture:</td><td> Collection Plate Date: 10/06/2019 16:21 </td></tr><tr><td >Culture Status:</td><td>F inal </td></tr><tr><td >Culture Report:</td><td>N O GROWTH 5 DAYS </td></tr></tbody ></table></item> UNK <item><content Lucrecia styleCode="Bold"> Medical [facility] er Culture Status </content>
<t able><tbody><tr>< td>Specimen Number:</td><td>[id number]</td></tr ><tr><td>Sample Collection Date/Time: </td><td>10/06/2019 4:20 PM</td></tr><tr>< td>Specimen Source:</td><td>B LOOD</td></tr><tr ><td>Blood Culture:</td><td> Collection Plate Date: 10/06/2019 16:21 </td></tr><tr><td >Culture Report:</td><td>N O GROWTH 5 DAYS </td></tr><tr><td >Culture Status:</td><td>F inal </td></tr></tbody ></table></item> ID Date Data Source Microbiology.[id number] 10/06/2019 04:00:[address] [facility] 400 Name Value Range Interpretation Code Description Data Debra rce(s) Supporting Document(s ) UNK <item><content [facility] styleCode="Bold"> Medical [facility] er Culture Status </content>
<t able><tbody><tr>< td>Specimen Number:</td><td>[id number]</td></tr ><tr><td>Sample Collection Date/Time: </td><td>10/06/2019 4:00 PM</td></tr><tr>< td>Specimen Source:</td><td>B LOOD</td></tr><tr ><td>Culture Report:</td><td>N O GROWTH 5 DAYS </td></tr><tr><td >Culture Status:</td><td>F inal </td></tr><tr><td >Blood Culture:</td><td> Collection Plate Date: 10/06/2019 16:12 </td></tr></tbody ></table></item> UNK <item><content [facility] styleCode="Bold"> Medical Cent er Culture Report </content>
<t able><tbody><tr>< td>Specimen Number:</td><td>[id number]</td></tr ><tr><td>Sample Collection Date/Time: </td><td>10/06/2019 4:00 PM</td></tr><tr>< td>Specimen Source:</td><td>B LOOD</td></tr><tr ><td>Blood Culture:</td><td> Collection Plate Date: 10/06/2019 16:12 </td></tr><tr><td >Culture Status:</td><td>F inal </td></tr><tr><td >Culture Report:</td><td>N O GROWTH 5 DAYS </td></tr></tbody ></table></item> ID Date Data Source HematologySpeci.[id number] 10/06/2019 04:00:00 PM EDT [facility] 0-0400 Name Value Range Interpretation Description Data Sup porting Code Source(s) Document(s ) C reactive < 3.0 Above high normal <content [facility] protein styleCode="Bold Medical [Mass/volume ">C-Reactive Center ] in Serum Protein or Plasma </content>> 15.0 MG/L H<content styleCode="Ital ics"> (< 3.0 MG/L)</content> ID Date Data Source Coagulation 10/06/2019 04:00:00 PM [facility] ical Center Rout.[id number] EDT Name Value Range Interpretation Description Data Sup porting Code Source(s) Document(s ) UNK 9.0-13.0 <content Saint styleCode="Layla Lucrecia d">Protime Medical </content>12.6 Center SEC<content styleCode="Christina lics"> (9.0-13.0 SEC)</content> INR in 0.80-1.2 <content Saint Platelet poor 0 styleCode="[facility] plasma by d">INR Medical Coagulation </content>1.14 Center assay #<content styleCode="Christina lics"> (0.80-1.20 #)</content> ID Date Data Source CardiacMarkers.[id number] 10/06/2019 04:00:00 PM EDT [facility] -0400 Name Value Range Interpretation Description Data Sup porting Code Source(s) Document(s ) Troponin < 0.034 <content [facility] I.cardiac styleCode="Bold Lucrecia [Mass/volume ">Troponin I Medical ] in Serum </content>0.027 Center or Plasma NG/ML<content styleCode="Ital ics"> (< 0.034 NG/ML)</content > ID Date Data Source Liver 10/06/2019 04:00:00 PM EDT [facility] Profile.[id number] Name Value Range Interpretation Description Data Sup [...] s"> (3.5-5.0 G/DL)</content> ID Date Data Source HematologyRou.[id number] 10/06/2019 04:00:00 PM EDT [facility] 0400 Name Value Range Interpretation Description Data [...] ics"> (0 /100)</content> ID Date Data Source GFR(Creatinine).[id number] 10/06/2019 04:00:[address] [facility] 0-0400 Name Value Range Interpretation Code Description Data Debra rce(s) Supporting Document(s ) UNK > 60 <content [facility] styleCode="Bold"> Medical Cent er EGFR </content>79 GFR<content styleCode="Italic s"> (> 60 GFR)</content> ID Date Data Source CHMROUTINECCDA.[id number] 10/06/2019 04:00:[address] [facility] -0400 Name Value Range Interpretation Description [...] ics"> (23-300 IU/L)</content> ID Date Data Source [facility].[id number] 10/06/2019 04:00:[address] [facility] Name Value Range Interpretation Description Data Sup porting Code Source(s) Document(s ) Sodium 137-145 <content [facility] [Moles/volume] in styleCode="Bold"> [facility] Serum or Plasma Sodium Medical </content>137 Center MEQ/L<content styleCode="Italic s"> (137-145 MEQ/L)</content> Chloride 98-107 <content [facility] [Moles/volume] in styleCode="Bold"> [facility] Serum or Plasma Chloride Medical </content>98 Center MEQ/L<content styleCode="Italic s"> (98-107 MEQ/L)</content> Potassium 3.5-5.3 Below low <content [facility] [Moles/volume] in normal styleCode="Bold"> [facility] Serum or Plasma Potassium Medical </content>3.2 [...] s"> (3.5-5.0 G/DL)</content> ID Date Data Source HematologyRou.[id number] 05/23/2019 06:01:00 AM JOSEPH [place] [facility] 0500 Name Value Range Interpretation Description Data [...] (0.0 KCUMM)</content > ID Date Data Source GFR(Creatinine).[id number] 05/23/2019 06:01:[address] [facility] 0-0500 Name Value Range Interpretation Code Description Data Debra rce(s) Supporting Document(s ) UNK > 60 <content [facility] styleCode="Bold"> Medical Cent er EGFR </content>106 GFR<content styleCode="Italic s"> (> 60 GFR)</content> ID Date Data Source CHMROUTINECCDA.[id number] 05/23/2019 06:01:00 AM [facility] -0500 Name Value Range Interpretation Description Data Sup porting Code Source(s) Document(s ) Magnesium 1.6-2.3 <content Saint [Mass/volume] styleCode="Layla Lucrecia in Serum or d">Magnesium Medical Plasma </content>2.0 Center MG/DL<content styleCode="Christina lics"> (1.6-2.3 MG/DL)</conten t> ID Date Data Source [facility].[id number] 05/23/2019 06:01:00 AM [facility] Name Value Range Interpretation Description Data [...] (> 60 GFR)</content> ID Date Data Source HematologyRou.[id number] 05/22/2019 06:12:[address] [facility] 0500 Name Value Range Interpretation Description Data [...] (130-400 KCUMM)</content > ID Date Data Source GFR(Creatinine).[id number] 05/22/2019 06:12:00 AM [facility] 0-0500 Name Value Range Interpretation Code Description Data Debra rce(s) Supporting Document(s ) UNK > 60 <content [facility] styleCode="Bold"> Medical Cent er EGFR </content>106 GFR<content styleCode="Italic s"> (> 60 GFR)</content> ID Date Data Source XIOMARAMROUTOLGADA.[id number] 05/22/2019 06:12:00 AM [facility] -0500 Name Value Range Interpretation Description Data Sup porting Code Source(s) Document(s ) Magnesium 1.6-2.3 <content [facility] [Mass/volume] styleCode="Layla Lucrecia in Serum or d">Magnesium Medical Plasma </content>2.1 Center MG/DL<content styleCode="Christina lics"> (1.6-2.3 MG/DL)</conten t> ID Date Data Source [id number] 05/22/2019 06:12:00 AM EST [facility] Name Value Range Interpretation Description [...] Data Source Liver 05/21/2019 07:05:00 AM EST [facility] Profile.[id number] Name Value Range Interpretation Description Data Sup [...] s"> (0.2-1.3 MG/DL)</content> ID Date Data Source HematologyRou.[id number] 05/21/2019 07:05:[address] [facility] 0500 Name Value Range Interpretation Description Data Sup porting Code Source(s) Document(s ) Hemoglobin 12.3-16. Below low normal <content Saint [Mass/volume] in 0 styleCode="Bold Lucrecia Blood ">Hemoglobin Medical </content>11.2 Center G/DL L<content styleCode="Ital ics"> (12.3-16.0 G/DL)</content> Erythrocytes 4.0-5.1 Below low normal <content Saint [#/volume] in styleCode="Bold [facility] Blood by ">Red Blood Medical Automated [...] (0.0 KCUMM)</content > ID Date Data Source GFR(Creatinine).[id number] 05/21/2019 07:05:00 AM [facility] 0-0500 Name Value Range Interpretation Code Description Data Debra rce(s) Supporting Document(s ) UNK > 60 <content [facility] styleCode="Bold"> Medical Cent er EGFR </content>106 GFR<content styleCode="Italic s"> (> 60 GFR)</content> ID Date Data Source CHMROUTINECCDA.[id number] 05/21/2019 07:05:00 AM [facility] -0500 Name Value Range Interpretation Description Data [...] ics"> (6.3-8.2 G/DL)</content> ID Date Data Source [facility].[id number] 05/21/2019 07:05:00 AM EST [facility] Center Name Value Range Interpretation Description Data Sup porting Code Source(s) Document(s ) Sodium 137-145 <content Saint [Moles/volume] in styleCode="Bold"> [facility] Serum or Plasma Sodium Medical </content>141 Center MEQ/L<content styleCode="Italic s"> (137-145 MEQ/L)</content> Chloride 98-107 <content Saint [Moles/volume] in styleCode="Bold"> [facility] Serum or Plasma Chloride Medical </content>103 Center MEQ/L<content styleCode="Italic s"> (98-107 MEQ/L)</content> UNK 7-17 <content Saint styleCode="Bold"> [place] BUN </content>17 Medical MG/DL<content Center styleCode="Italic s"> (7-17 MG/DL)</content> Carbon dioxide, 22-30 <content Saint total styleCode="Bold"> [place] [Moles/volume] in Carbon Dioxide Medical Serum or Plasma </content>30 Center MEQ/L<content styleCode="Italic s"> (22-30 MEQ/L)</content> Potassium 3.5-5.3 Below low <content [facility] [Moles/volume] in normal styleCode="Bold"> [facility] Serum or Plasma Potassium Medical </content>3.2 [...] Data Source Liver 05/20/2019 05:56:00 AM EST [facility] Profile.[id number] Name Value Range Interpretation Description Data Sup [...] IU/L)</content> Alkaline 38-126 <content Saint phosphatase styleCode="Bold"> [facility] [Enzymatic Alkaline Medical activity/volume] Phosphatase (ALP) [...] s"> (0.2-1.3 MG/DL)</content> ID Date Data Source HematologyRou.[id number] 05/20/2019 05:56:[address] [facility] 0500 Name Value Range Interpretation Description Data [...] (0-0.1 KCUMM)</content > ID Date Data Source GFR(Creatinine).[id number] 05/20/2019 05:56:00 AM [facility] 0-0500 Name Value Range Interpretation Code Description Data Debra rce(s) Supporting Document(s ) UNK > 60 <content [facility] styleCode="Bold"> Medical Cent er EGFR </content>106 GFR<content styleCode="Italic s"> (> 60 GFR)</content> ID Date Data Source CHMROUTINECCDA.[id number] 05/20/2019 05:56:00 AM [facility] -0500 Name Value Range Interpretation Description Data [...] (1.6-2.3 MG/DL)</conten t> ID Date Data Source [facility].[id number] 05/20/2019 05:56:00 AM EST [facility] Name Value Range Interpretation Description Data Sup porting Code Source(s) Document(s ) Sodium 137-145 <content Saint [Moles/volume] in styleCode="Bold"> [facility] Serum or Plasma Sodium Medical </content>140 Center MEQ/L<content styleCode="Italic s"> (137-145 MEQ/L)</content> Potassium 3.5-5.3 <content Saint [Moles/volume] in styleCode="Bold"> [facility] Serum or Plasma Potassium Medical </content>3.5 Center MEQ/L<content styleCode="Italic s"> (3.5-5.3 MEQ/L)</content> Carbon dioxide, 22-30 <content Saint total styleCode="Bold"> [place] [Moles/volume] in Carbon Dioxide Medical Serum or Plasma </content>29 Center MEQ/L<content styleCode="Italic s"> (22-30 MEQ/L)</content> Chloride 98-107 <content Saint [Moles/volume] in styleCode="Bold"> [facility] Serum or Plasma Chloride Medical </content>104 Center [...] s"> (3.5-5.0 G/DL)</content> ID Date Data Source BMP.[id number] 05/19/2019 12:17:[address] [facility] Name Value Range Interpretation Description Data Sup porting Code Source(s) Document(s ) Potassium 3.5-5.3 <content [facility] [Moles/volume styleCode="Layla Lucrecia ] in Serum or d">Potassium Medical Plasma </content>3.6 Center MEQ/L<content styleCode="Christina lics"> (3.5-5.3 MEQ/L)</conten t> ID Date Data Source Urinalysis.[id number] 05/19/2019 08:33:00 AM EST [place] [facility] 0 Name Value Range Interpretation Description Data [...] 1.015-1.02 <content Saint gravity of 5 styleCode="Layla Castillos Urine by Test d">Urine Medical strip Specific Center [place] </content>1.02 0 <content styleCode="Christina lics"> (1.015-1.025 )</content> [...] lics"> (0-3 HPF)</content> ID Date Data Source Hormones.[id number] 05/19/2019 05:40:00 AM EST [facility] Name Value Range Interpretation Description Data Sup porting Code Source(s) Document(s ) Thyrotropin 0.465-4. <content Saint [Units/volume] 68 styleCode="Layla Lucrecia in Serum or d">Thyroid Medical Plasma by Stimulating Center Detection Hormone limit <= 0.05 </content>0.49 mIU/L 2 MIU/L<content styleCode="Christina lics"> (0.465-4.68 MIU/L)</conten t> ID Date Data Source HematologyRou.[id number] 05/19/2019 05:40:00 AM EST [facility] 0500 Name Value Range Interpretation [...] (0.0 KCUMM)</content > ID Date Data Source GFR(Creatinine).[id number] 05/19/2019 05:40:00 AM [facility] 0-0500 Name Value Range Interpretation Code Description Data Debra rce(s) Supporting Document(s ) UNK > 60 <content [facility] styleCode="Bold"> Medical Cent er EGFR </content>127 GFR<content styleCode="Italic s"> (> 60 GFR)</content> ID Date Data Source CHMROUTINECCDA.[id number] 05/19/2019 05:40:00 AM [facility] -0500 Name Value Range Interpretation Description Data Sup porting Code Source(s) Document(s ) Ferritin 11-264 <content Saint [Mass/volume] styleCode="Layla Lucrecia in Serum or d">Ferritin Medical Plasma </content>37.1 Center NG/ML<content styleCode="Christina lics"> (11-264 NG/ML)</conten t> UNK 265-497 <content Saint styleCode="Layla Lucrecia d">TIBC Medical </content>281 Center UG/DL<content styleCode="Chritsina lics"> (265-497 UG/DL)</conten t> Iron 37-170 <content Saint [Mass/volume] styleCode="Layla Lucrecia in Serum or d">Iron Medical Plasma </content>49 Center UG/DL<content styleCode="Christina lics"> (37-170 UG/DL)</conten t> Magnesium 1.6-2.3 <content [facility] [Mass/volume] styleCode="Layla Lucrecia in Serum or d">Magnesium Medical Plasma </content>1.6 Center MG/DL<content styleCode="Christina lics"> (1.6-2.3 MG/DL)</conten t> ID Date Data Source [facility].[id number] 05/19/2019 05:40:00 AM EST [facility] Name Value Range Interpretation Description [...] Data Source Liver 05/18/2019 08:00:00 PM EST [facility] Profile.[id number] Name Value Range Interpretation Description Data Sup [...] MG/DL)</content> Alkaline 38-126 <content Saint phosphatase styleCode="Bold"> [facility] [Enzymatic Alkaline Medical activity/volume] Phosphatase (ALP) Cente r in Serum or Plasma </content>71 IU/L<content styleCode="Italic s"> (38-126 IU/L)</content> ID Date Data Source Coagulation 05/18/2019 08:00:00 PM [facility] Rout.[id number] EST Name Value Range Interpretation Description Data [...] cs"> (0.80-1.20 #)</content> ID Date Data Source CardiacMarkers.[id number] 05/18/2019 08:00:00 PM EST [facility] -0500 Name Value Range Interpretation Description Data Sup porting Code Source(s) Document(s ) Creatine 30-135 <content [facility] [place] kinase styleCode="Bold Medical [Enzymatic ">CK Center activity/vol </content>59 ume] in IU/L<content Serum or styleCode="Ital Plasma ics"> (30-135 IU/L)</content> ID Date Data Source HematologyRou.[id number] 05/18/2019 08:00:00 PM EST [facility] 0500 Name Value Range Interpretation [...] (0.0 KCUMM)</content > ID Date Data Source GFR(Creatinine).[id number] 05/18/2019 08:00:00 PM [facility] 0-0500 Name Value Range Interpretation Code Description Data Debra rce(s) Supporting Document(s ) UNK > 60 <content [facility] styleCode="Bold"> Medical Cent er EGFR </content>127 GFR<content styleCode="Italic s"> (> 60 GFR)</content> ID Date Data Source CHMROUTINECCDA.[id number] 05/18/2019 08:00:00 PM [facility] -0500 Name Value Range Interpretation Description Data Sup porting Code Source(s) Document(s ) Protein 6.3-8.2 <content [facility] [Mass/volum styleCode="Bold Medical e] in Serum ">Total Protein Center or Plasma </content>6.8 G/DL<content styleCode="Ital ics"> (6.3-8.2 G/DL)</content> UNK >= 1.0 <content [facility] styleCode="Bold Medical ">AG Ratio Center </content>1.3 <content styleCode="Ital ics"> (>= 1.0 )</content> UNK 2.3-3.5 <content [facility] styleCode="Bold Medical ">Globulin Center </content>2.9 G/DL<content styleCode="Ital ics"> (2.3-3.5 G/DL)</content> ID Date Data Source [facility].[id number] 05/18/2019 08:00:00 PM EST [facility] Name Value Range Interpretation Description Data Sup porting Code Source(s) Document(s ) Potassium 3.5-5.3 Below low <content Saint [Moles/volume] in normal styleCode="Bold"> [facility] Serum or Plasma Potassium Medical </content>3.2 [...] high <content Saint [Mass/volume] in normal styleCode="Bold"> Ab[facility] hs Serum or Plasma Glucose Medical </content>252 [...] Interpretation Code Description Data Source(s) Body temperature 36.567396 36.994707 [facility] Respiratory rate 18 /min 18 /min [facility] Heart rate 64 /min 64 /min [facility] Diastolic blood 64 mm[Hg] 64 mm[Hg] [facility] Systolic blood 157 mm[Hg] 157 mm[Hg] [facility] Body temperature 36.048280 36.661310 [facility] Respiratory rate 18 /min 18 /min [facility] Heart rate 79 /min 79 /min [facility] Diastolic blood 81 mm[Hg] 81 mm[Hg] [facility] Systolic blood 129 mm[Hg] 129 mm[Hg] [facility] Body temperature 36.668899 36.737866 [facility] Respiratory rate 18 /min 18 /min [facility] Heart rate 75 /min 75 /min [facility] Diastolic blood 64 mm[Hg] 64 mm[Hg] [facility] Systolic blood 134 mm[Hg] 134 mm[Hg] [facility] Oxygen saturation 96 % 96 % [facility] blood [facility] by Pulse oximetry Body temperature 36.715217 36.934879 [facility] Respiratory rate 19 /min 19 /min [facility] Heart rate 85 /min 85 /min [facility] Diastolic blood 89 mm[Hg] 89 mm[Hg] [facility] Systolic blood 198 mm[Hg] 198 mm[Hg] [facility] Body temperature 36.478923 36.570654 [facility] Respiratory rate 18 /min 18 /min [facility] Heart rate 73 /min 73 /min [facility] Diastolic blood 76 mm[Hg] 76 mm[Hg] [facility] Systolic blood 130 mm[Hg] 130 mm[Hg] [facility] Oxygen saturation 97 % 97 % [facility] Arterial blood [facility] by Pulse oximetry Oxygen saturation 98 % 98 % [facility] Arterial blood Medical Center by Pulse oximetry Oxygen saturation 94 % 94 % [facility] in Arterial blood Medical Center by Pulse oximetry Body weight 65.834889 kg 65.312578 kg [facility] Body height 162.172102 162.095900 cm [facility] Body mass index 24.92 kg/m2 24.92 kg/m2 [facility] (BMI) [Ratio] Medical [address] Oxygen saturation 97 % 97 % [facility] blood [facility] by Pulse oximetry Body weight 66.016677 kg 66.400379 kg [facility] Body temperature 37.638565 37.906004 [facility] Respiratory rate 19 /min 19 /min [facility] Oxygen saturation 94 % 94 % [facility] in Arterial blood [facility] Center by Pulse oximetry Heart rate 97 /min 97 /min [facility] Diastolic blood 78 mm[Hg] 78 mm[Hg] [facility] pressure Medical [place] Systolic blood 157 mm[Hg] 157 mm[Hg] [facility] Body temperature 37.775121 37.745299 [facility] Respiratory rate 20 /min 20 /min [facility] Oxygen saturation 95 % 95 % [facility] in Arterial blood [facility] by Pulse oximetry Heart rate 113 /min 113 /min [facility] Diastolic blood 80 mm[Hg] 80 mm[Hg] [facility] Systolic blood 172 mm[Hg] 172 mm[Hg] [facility] Body temperature 37.140733 37.777762 [facility] Respiratory rate 20 /min 20 /min [facility] Oxygen saturation 93 % 93 % [facility] in Arterial blood [facility] by Pulse oximetry Heart rate 105 /min 105 /min [facility] Diastolic blood 80 mm[Hg] 80 mm[Hg] [facility] Systolic blood 165 mm[Hg] 165 mm[Hg] [facility] Body temperature 36.966654 36.576049 [facility] Respiratory rate 17 /min 17 /min [facility] Oxygen saturation 98 % 98 % [facility] in Arterial blood [facility] by Pulse oximetry Heart rate 99 /min 99 /min [facility] Diastolic blood 76 mm[Hg] 76 mm[Hg] [facility] Systolic blood 159 mm[Hg] 159 mm[Hg] [facility] Body temperature 37.855575 37.551660 [facility] Respiratory rate 24 /min 24 /min [facility] Oxygen saturation 93 % 93 % [facility] in Arterial blood [facility] by Pulse oximetry Heart rate 113 /min 113 /min [facility] Diastolic blood 86 mm[Hg] 86 mm[Hg] [facility] Medical Center Systolic blood 156 mm[Hg] 156 mm[Hg] [facility] Medical Center Body weight 69.969372 kg 69.931592 kg [facility] Measured [facility] Center Body height 162.584837 162.257557 cm [facility] Body mass index 26.2 kg/m2 26.2 kg/m2 [facility] (BMI) [Ratio] Medical [facility] ter Body temperature 36.428170 36.617612 [facility] Respiratory rate 18 /min 18 /min [facility] Heart rate 67 /min 67 /min [facility] Diastolic blood 74 mm[Hg] 74 mm[Hg] [facility] Medical Center Systolic blood 158 mm[Hg] 158 mm[Hg] [facility] Body weight 69.642367 kg 69.612925 kg [facility] Measured Medical Center Body height 162.552290 162.097368 cm [facility] Body mass index 26.30 kg/m2 26.30 kg/m2 [facility] (BMI) [Ratio] Medical [facility] ter Body temperature 36.052098 36.197054 [facility] Respiratory rate 18 /min 18 /min [facility] Oxygen saturation 97 % 97 % [facility] in Arterial blood [facility] Center by Pulse oximetry Heart rate 67 /min 67 /min [facility] Diastolic blood 81 mm[Hg] 81 mm[Hg] [facility] Systolic blood 152 mm[Hg] 152 mm[Hg] [facility] Body temperature 36.989480 36.960806 [facility] Respiratory rate 18 /min 18 /min [facility] Heart rate 76 /min 76 /min [facility] Diastolic blood 70 mm[Hg] 70 mm[Hg] [facility] Medical Center Systolic blood 145 mm[Hg] 145 mm[Hg] [facility] Heart rate 64 /min 64 /min [facility] Diastolic blood 80 mm[Hg] 80 mm[Hg] [facility] Medical Center Systolic blood 142 mm[Hg] 142 mm[Hg] [facility] Body temperature 36.737686 36.433928 [facility] Respiratory rate 20 /min 20 /min [facility] Heart rate 65 /min 65 /min [facility] Diastolic blood 62 mm[Hg] 62 mm[Hg] [facility] Medical Center Systolic blood 160 mm[Hg] 160 mm[Hg] [facility] Body weight 69.922054 kg 69.735166 kg [facility] Measured Medical Center Body height 162.272244 162.512733 cm [facility] Body mass index 26.30 kg/m2 26.30 kg/m2 [facility] osep (BMI) [Ratio] [facility] [address] [facility] Body temperature 37.396554 37.522741 [facility] Respiratory rate 20 /min 20 /min [facility] Body temperature 36.217139 36.478060 [facility] Respiratory rate 18 /min 18 /min [facility] Heart rate 69 /min 69 /min [facility] Diastolic blood 70 mm[Hg] 70 mm[Hg] [facility] Systolic blood 178 mm[Hg] 178 mm[Hg] [facility] Body temperature 36.612868 36.027619 [facility] Respiratory rate 16 /min 16 /min [facility] Heart rate 74 /min 74 /min [facility] Diastolic blood 86 mm[Hg] 86 mm[Hg] [facility] Systolic blood 190 mm[Hg] 190 mm[Hg] [facility] Body temperature 36.196892 36.323531 [facility] Respiratory rate 20 /min 20 /min [facility] Heart rate 68 /min 68 /min [facility] Diastolic blood 86 mm[Hg] 86 mm[Hg] [facility] Medical Center Systolic blood 179 mm[Hg] 179 mm[Hg] [facility] Medical [place] Body weight 69.862998 kg 69.428628 kg [facility] Measured Medical Center Oxygen saturation 95 % 95 % [facility] in Arterial blood [facility] Center by Pulse oximetry Body height 162.612039 162.535131 cm [facility] Medical Center Body mass index 26.30 kg/m2 26.30 kg/m2 [facility] (BMI) [Ratio] Medical [address] [facility] Body temperature 36.182262 36.967088 [facility] Respiratory rate 18 /min 18 /min [facility] Heart rate 69 /min 69 /min [facility] Diastolic blood 87 mm[Hg] 87 mm[Hg] [facility] pressure Medical Center Systolic blood 179 mm[Hg] 179 mm[Hg] [facility] Center Oxygen saturation 97 % 97 % [facility] in Arterial blood [facility] Center by Pulse oximetry Body temperature 37.959032 37.361945 [facility] Respiratory rate 18 /min 18 /min [facility] Heart rate 76 /min 76 /min [facility] Diastolic blood 83 mm[Hg] 83 mm[Hg] [facility] pressure Medical Center Systolic blood 176 mm[Hg] 176 mm[Hg] [facility] Center Oxygen saturation 97 % 97 % [facility] in Arterial blood [facility] Center by Pulse oximetry Body weight 65.532842 kg 65.459718 kg [facility] [facility] Oxygen saturation 97 % 97 % [facility] Arterial blood [facility] by Pulse oximetry Body height [phone] [phone] cm [facility] Body mass index 24.5 kg/m2 24.5 kg/m2 [facility] (BMI) [Ratio] [facility]
[2020-05-09] MEDS ORDERED: BORTEZOMIB (VELCADE) 2.5 MG/ML SUB-Q INJECTION SQ ONE (10:00)
[2020-05-09] MEDS ORDERED: DEXAMETHASONE 4 MG TABLET (FP) PO ONE (10:00)
[2020-05-09] MEDS ORDERED: SODIUM CHLORIDE 250 ML IV ONE (10:00)
[2020-05-09] MEDS ORDERED: POTASSIUM CHLORIDE TABS 20 MEQ TABLET.ER (FP) PO ONE (13:04)
[2020-05-09] MEDS ORDERED: LIDOCAINE 5% TOPICAL PATCH TP ONE (13:05)
[2020-05-09 15:11] LABS: BASO % 2.4 % (0-2.0); EOS % 3.2 % (0-4.5); HEMATOCRIT 30.5 % (32.4-45.2); HEMOGLOBIN 9.8 GM/dL (10.7-15.3); LYMPH % 15.5 % (8-40); MCH 29.8 pg (25.7-33.7); MCHC 32.2 g/dl (32.0-36.0); MEAN CELL VOLUME 92.6 fl (80-96); MEAN PLT VOLUME 8.2 fl (7.5-11.1); MONO % 13.6 % (3.8-10.2); NEUT % 65.3 % (42.8-82.8); PLATELET COUNT 200 K/MM3 (134-434); RBC 3.29 M/mm3 (3.60-5.2); RDW 16.2 % (11.6-15.6); WHITE BLOOD COUNT 6.6 K/mm3 (4.0-10.0)
[2020-05-09 15:27] LABS: POTASSIUM 3.8 mmol/L (3.5-5.1)
[2020-05-09 15:29] LABS: ALBUMIN 3.4 g/dl (3.4-5.0); CALCIUM 8.4 mg/dL (8.5-10.1)
[2020-05-09 15:30] LABS: BLOOD UREA NITROGEN 18.2 mg/dL (7-18); MAGNESIUM 2.3 mg/dL (1.8-2.4)
[2020-05-09 15:32] LABS: BILIRUBIN,DIRECT 0.1 mg/dL (0.0-0.2); CREATININE 0.8 mg/dL (0.55-1.3); URIC ACID 4.4 mg/dL (2.6-7.2)
[2020-05-09 15:34] LABS: BILIRUBIN,TOTAL 0.2 mg/dL (0.2-1); TOT PROT 5.9 g/dl (6.4-8.2)
[2020-05-09 18:37] VITALS: TEMP 98.8
[2020-05-09 18:45] VITALS: BP 154/62; PULSE 74
[2020-05-09] MEDS ORDERED: LIDOCAINE PATCH REMOVAL MC SCH (22:00)
== END 2020-05-09 16:15 | disposition home or self-care (01) ==
LOC: JONCCHEMO 07:17
PROVIDERS: ATTEND Internal Medicine Hematology & Oncology
DX: Z51.11 Encounter for antineoplastic chemotherapy (principal); C90.00 Multiple myeloma not having achieved remission
CPT/HCPCS: 36415; 80048; 80076; 83615; 83735; 84550; 85025; 96360; 96401; J9041

== ENCOUNTER 2020-05-16 09:37 | Day surgery (SDC) | payer OTHER, BC ==
[2020-05-16] MEDS ORDERED: DEXAMETHASONE 4 MG TABLET (FP) PO ONE (10:00)
[2020-05-16] MEDS ORDERED: BORTEZOMIB (VELCADE) 2.5 MG/ML SUB-Q INJECTION SQ ONE (10:00)
[2020-05-16] MEDS ORDERED: SODIUM CHLORIDE 250 ML IV ONE (10:00)
[2020-05-16] MEDS ORDERED: DENOSUMAB 120 MG/1.7 ML VIAL SQ ONE (10:00)
[2020-05-16] MEDS ORDERED: POTASSIUM CHLORIDE TABS 20 MEQ TABLET.ER (FP) PO ONE ×2 (13:17→14:45)
[2020-05-16] MEDS ORDERED: amLODIPine BESYLATE 10 MG TABLET (FP) PO ONE ×2 (13:17→14:30)
[2020-05-16] MEDS ORDERED: LIDOCAINE 5% TOPICAL PATCH TP ONE (13:17)
[2020-05-16 14:50] LABS: EOS % 3.7 % (0-4.5); HEMATOCRIT 29.6 % (32.4-45.2); HEMOGLOBIN 9.7 GM/dL (10.7-15.3); LYMPH % 9.5 % (8-40); MCH 29.9 pg (25.7-33.7); MCHC 32.6 g/dl (32.0-36.0); MEAN CELL VOLUME 91.9 fl (80-96); MEAN PLT VOLUME 9.1 fl (7.5-11.1); MONO % 7.1 % (3.8-10.2); NEUT % 78.7 % (42.8-82.8); PLATELET COUNT 129 K/MM3 (134-434); RBC 3.22 M/mm3 (3.60-5.2); RDW 15.9 % (11.6-15.6); WHITE BLOOD COUNT 5.5 K/mm3 (4.0-10.0)
[2020-05-16 15:19] LABS: POTASSIUM 3.8 mmol/L (3.5-5.1)
[2020-05-16 15:21] LABS: CALCIUM 8.9 mg/dL (8.5-10.1)
[2020-05-16 15:22] LABS: ALBUMIN 3.4 g/dl (3.4-5.0); MAGNESIUM 2.1 mg/dL (1.8-2.4)
[2020-05-16 15:24] LABS: BILIRUBIN,DIRECT 0.1 mg/dL (0.0-0.2)
[2020-05-16 15:25] LABS: CREATININE 0.9 mg/dL (0.55-1.3); URIC ACID 4.7 mg/dL (2.6-7.2)
[2020-05-16 15:26] LABS: BILIRUBIN,TOTAL 0.4 mg/dL (0.2-1)
[2020-05-16 15:27] LABS: TOT PROT 5.6 g/dl (6.4-8.2)
[2020-05-16 16:40] VITALS: BP 165/71; PULSE 82; TEMP 98.1
[2020-05-16] MEDS ORDERED: LIDOCAINE PATCH REMOVAL MC ONE (22:00)
== END 2020-05-16 16:45 | disposition home or self-care (01) ==
LOC: JONCCHEMO 09:37
PROVIDERS: ATTEND Internal Medicine Hematology & Oncology
PROC: 3E01305 Introduction of Other Antineoplastic into Subcutaneous Tissue, Percutaneous Approach (ICD-10-PCS; principal; 2020-05-16)
PROC: 3E013GC Introduction of Other Therapeutic Substance into Subcutaneous Tissue, Percutaneous Approach (ICD-10-PCS; 2020-05-16)
DX: Z51.11 Encounter for antineoplastic chemotherapy (principal); C90.00 Multiple myeloma not having achieved remission
CPT/HCPCS: 36415; 80048; 80076; 83615; 83735; 84550; 85025; 96372; 96401; J0897; J9041

== ENCOUNTER 2020-05-23 06:53 | Day surgery (SDC) | payer OTHER, BC ==
[2020-05-23] MEDS ORDERED: BORTEZOMIB (VELCADE) 2.5 MG/ML SUB-Q INJECTION SQ ONE (10:00)
[2020-05-23] MEDS ORDERED: SODIUM CHLORIDE 250 ML IV ONE (10:00)
[2020-05-23] MEDS ORDERED: DEXAMETHASONE 4 MG TABLET (FP) PO ONE (10:00)
[2020-05-23] MEDS ORDERED: amLODIPine BESYLATE 10 MG TABLET (FP) PO ONE (13:54)
[2020-05-23 14:59] LABS: BASO % 0.7 % (0-2.0); HEMATOCRIT 28.3 % (32.4-45.2); HEMOGLOBIN 9.2 GM/dL (10.7-15.3); LYMPH % 8.4 % (8-40); MCH 30.3 pg (25.7-33.7); MCHC 32.4 g/dl (32.0-36.0); MEAN CELL VOLUME 93.5 fl (80-96); MEAN PLT VOLUME 9.4 fl (7.5-11.1); MONO % 16.9 % (3.8-10.2); PLATELET COUNT 85 K/MM3 (134-434); RBC 3.03 M/mm3 (3.60-5.2); RDW 15.8 % (11.6-15.6)
[2020-05-23 15:24] LABS: POTASSIUM 3.7 mmol/L (3.5-5.1)
[2020-05-23 15:27] LABS: ALBUMIN 3.1 g/dl (3.4-5.0); BLOOD UREA NITROGEN 18.2 mg/dL (7-18); CALCIUM 8.5 mg/dL (8.5-10.1)
[2020-05-23 15:30] LABS: BILIRUBIN,DIRECT 0.1 mg/dL (0.0-0.2); CREATININE 0.8 mg/dL (0.55-1.3); URIC ACID 4.6 mg/dL (2.6-7.2)
[2020-05-23 15:32] LABS: BILIRUBIN,TOTAL 0.3 mg/dL (0.2-1); TOT PROT 5.5 g/dl (6.4-8.2)
[2020-05-23 16:42] VITALS: PULSE 86; TEMP 99
[2020-05-23 16:45] VITALS: BP 182/68
== END 2020-05-23 16:15 | disposition home or self-care (01) ==
LOC: JONCCHEMO 06:53
PROVIDERS: ATTEND Internal Medicine Hematology & Oncology
PROC: 3E01305 Introduction of Other Antineoplastic into Subcutaneous Tissue, Percutaneous Approach (ICD-10-PCS; principal; 2020-05-23)
PROC: 3E0337Z Introduction of Electrolytic and Water Balance Substance into Peripheral Vein, Percutaneous Approach (ICD-10-PCS; 2020-05-23)
DX: Z51.11 Encounter for antineoplastic chemotherapy (principal); C90.00 Multiple myeloma not having achieved remission
CPT/HCPCS: 36415; 80048; 80076; 83735; 84550; 85025; 96360; 96401; J9041

== ENCOUNTER 2020-06-06 07:13 | Day surgery (SDC) | payer OTHER, BC ==
[2020-06-06] MEDS ORDERED: BORTEZOMIB (VELCADE) 2.5 MG/ML SUB-Q INJECTION SQ ONE (10:00)
[2020-06-06] MEDS ORDERED: SODIUM CHLORIDE 250 ML IV ONE (10:00)
[2020-06-06] MEDS ORDERED: DEXAMETHASONE 4 MG TABLET (FP) PO ONE (10:00)
[2020-06-06] MEDS ORDERED: amLODIPine BESYLATE 5 MG TABLET (FP) PO ONE (14:13)
[2020-06-06 15:02] LABS: BASO % 2.4 % (0-2.0); EOS % 3.2 % (0-4.5); HEMATOCRIT 27.3 % (32.4-45.2); HEMOGLOBIN 9.1 GM/dL (10.7-15.3); LYMPH % 11.1 % (8-40); MCH 30.3 pg (25.7-33.7); MCHC 33.4 g/dl (32.0-36.0); MEAN CELL VOLUME 90.8 fl (80-96); MEAN PLT VOLUME 7.6 fl (7.5-11.1); NEUT % 66.3 % (42.8-82.8); PLATELET COUNT 214 K/MM3 (134-434); RBC 3.01 M/mm3 (3.60-5.2); RDW 15.7 % (11.6-15.6); WHITE BLOOD COUNT 4.3 K/mm3 (4.0-10.0)
[2020-06-06 15:09] LABS: POTASSIUM 3.5 mmol/L (3.5-5.1)
[2020-06-06 15:13] LABS: ALBUMIN 3.3 g/dl (3.4-5.0); BLOOD UREA NITROGEN 21.9 mg/dL (7-18); CALCIUM 9.4 mg/dL (8.5-10.1); MAGNESIUM 2.1 mg/dL (1.8-2.4)
[2020-06-06 15:16] LABS: BILIRUBIN,DIRECT 0.1 mg/dL (0.0-0.2); URIC ACID 4.8 mg/dL (2.6-7.2)
[2020-06-06 15:18] LABS: BILIRUBIN,TOTAL 0.2 mg/dL (0.2-1); TOT PROT 5.9 g/dl (6.4-8.2)
[2020-06-06] MEDS ORDERED: POTASSIUM CHLORIDE TABS 20 MEQ TABLET.ER (FP) PO ONE (15:25)
[2020-06-06] MEDS: amLODIPine BESYLATE 5 MG TABLET (FP) PO ONE ×2 (15:42→15:54)
[2020-06-06 16:57] VITALS: TEMP 98.4
[2020-06-06 17:05] VITALS: BP 164/63; PULSE 71
== END 2020-06-06 16:10 | disposition home or self-care (01) ==
LOC: JONCCHEMO 07:13
PROVIDERS: ATTEND Internal Medicine Hematology & Oncology
DX: Z51.11 Encounter for antineoplastic chemotherapy (principal); C90.00 Multiple myeloma not having achieved remission
CPT/HCPCS: 36415; 80048; 80076; 83615; 83735; 84550; 85025; 96372; 96401; J9041

== ENCOUNTER 2020-06-13 06:22 | Day surgery (SDC) | payer OTHER, BC ==
[2020-06-13] MEDS ORDERED: SODIUM CHLORIDE 250 ML IV ONE (10:00)
[2020-06-13] MEDS ORDERED: DEXAMETHASONE 4 MG TABLET (FP) PO ONE (10:00)
[2020-06-13] MEDS ORDERED: amLODIPine BESYLATE 10 MG TABLET (FP) PO ONE (10:00)
[2020-06-13] MEDS ORDERED: DENOSUMAB 120 MG/1.7 ML VIAL SQ ONE (10:00)
[2020-06-13] MEDS ORDERED: BORTEZOMIB (VELCADE) 2.5 MG/ML SUB-Q INJECTION SQ ONE (10:00)
[2020-06-13 14:53] LABS: BASO % 0.7 % (0-2.0); EOS % 5.5 % (0-4.5); HEMATOCRIT 28.7 % (32.4-45.2); HEMOGLOBIN 9.4 GM/dL (10.7-15.3); LYMPH % 6.9 % (8-40); MCH 30.2 pg (25.7-33.7); MCHC 32.7 g/dl (32.0-36.0); MEAN CELL VOLUME 92.3 fl (80-96); MEAN PLT VOLUME 8.6 fl (7.5-11.1); MONO % 15.3 % (3.8-10.2); NEUT % 71.6 % (42.8-82.8); PLATELET COUNT 134 K/MM3 (134-434); RBC 3.11 M/mm3 (3.60-5.2); RDW 16.6 % (11.6-15.6); WHITE BLOOD COUNT 5.6 K/mm3 (4.0-10.0)
[2020-06-13 15:09] LABS: POTASSIUM 3.7 mmol/L (3.5-5.1)
[2020-06-13 15:11] LABS: CALCIUM 8.5 mg/dL (8.5-10.1)
[2020-06-13 15:13] LABS: ALBUMIN 3.2 g/dl (3.4-5.0); BLOOD UREA NITROGEN 23.8 mg/dL (7-18)
[2020-06-13 15:14] LABS: BILIRUBIN,DIRECT 0.2 mg/dL (0.0-0.2); CREATININE 0.9 mg/dL (0.55-1.3); URIC ACID 4.4 mg/dL (2.6-7.2)
[2020-06-13 15:16] LABS: TOT PROT 5.6 g/dl (6.4-8.2)
[2020-06-13 15:18] LABS: BILIRUBIN,TOTAL 0.4 mg/dL (0.2-1)
[2020-06-13 15:20] LABS: MAGNESIUM 1.8 mg/dL (1.8-2.4)
[2020-06-13 16:52] VITALS: TEMP 98.6
[2020-06-13 16:53] VITALS: BP 150/70; PULSE 75
[2020-06-15 18:07] LABS: FREE KAPPA,SERUM 29.6 mg/L (3.3-19.4)
[2020-06-19 07:10] LABS: FREE KAP CHN UR 85.51 mg/L (0.63-113.79); KAPPA LAMBDA RATIO URIN 12.76 (1.03-31.76)
== END 2020-06-13 15:45 | disposition home or self-care (01) ==
LOC: JONCCHEMO 06:22
PROVIDERS: ATTEND Internal Medicine Hematology & Oncology
PROC: 3E01305 Introduction of Other Antineoplastic into Subcutaneous Tissue, Percutaneous Approach (ICD-10-PCS; principal; 2020-06-13)
PROC: 3E013GC Introduction of Other Therapeutic Substance into Subcutaneous Tissue, Percutaneous Approach (ICD-10-PCS; 2020-06-13)
DX: Z51.11 Encounter for antineoplastic chemotherapy (principal); C90.00 Multiple myeloma not having achieved remission
CPT/HCPCS: 36415; 80048; 80076; 82784; 83615; 83735; 83883; 84155; 84165; 84550; 85025; 86335; 96372; 96401; J0897; J9041

== ENCOUNTER 2020-06-20 07:11 | Day surgery (SDC) | payer OTHER, BC ==
[2020-06-20] MEDS ORDERED: SODIUM CHLORIDE 250 ML IV ONE (09:00)
[2020-06-20] MEDS ORDERED: amLODIPine BESYLATE 10 MG TABLET (FP) PO ONE (10:00)
[2020-06-20] MEDS ORDERED: DEXAMETHASONE 4 MG TABLET (FP) PO ONE (10:00)
[2020-06-20] MEDS ORDERED: DENOSUMAB 120 MG/1.7 ML VIAL SQ ONE (10:00)
[2020-06-20] MEDS ORDERED: BORTEZOMIB (VELCADE) 2.5 MG/ML SUB-Q INJECTION SQ ONE (10:00)
[2020-06-20 14:50] LABS: BASO % 0.8 % (0-2.0); EOS % 7.3 % (0-4.5); HEMATOCRIT 28.1 % (32.4-45.2); HEMOGLOBIN 9.2 GM/dL (10.7-15.3); LYMPH % 8.1 % (8-40); MCH 30.5 pg (25.7-33.7); MCHC 32.9 g/dl (32.0-36.0); MEAN CELL VOLUME 92.9 fl (80-96); MEAN PLT VOLUME 8.4 fl (7.5-11.1); MONO % 16.2 % (3.8-10.2); NEUT % 67.6 % (42.8-82.8); PLATELET COUNT 113 K/MM3 (134-434); RBC 3.02 M/mm3 (3.60-5.2); RDW 16.6 % (11.6-15.6); WHITE BLOOD COUNT 6.8 K/mm3 (4.0-10.0)
[2020-06-20 15:13] LABS: ALBUMIN 2.9 g/dl (3.4-5.0); CALCIUM 7.8 mg/dL (8.5-10.1); MAGNESIUM 1.7 mg/dL (1.8-2.4)
[2020-06-20 15:16] LABS: BILIRUBIN,DIRECT 0.1 mg/dL (0.0-0.2); CREATININE 0.7 mg/dL (0.55-1.3); URIC ACID 3.8 mg/dL (2.6-7.2)
[2020-06-20 15:18] LABS: TOT PROT 4.9 g/dl (6.4-8.2)
[2020-06-20 15:20] LABS: BILIRUBIN,TOTAL 0.2 mg/dL (0.2-1)
[2020-06-20 15:36] LABS: POTASSIUM 2.8 mmol/L (3.5-5.1)
[2020-06-20] MEDS ORDERED: MAGNESIUM OXIDE 400 MG TABLET (FP) PO ONE (15:38)
[2020-06-20] MEDS ORDERED: POTASSIUM CHLORIDE TABS 20 MEQ TABLET.ER (FP) PO ONE (15:47)
[2020-06-20 16:26] VITALS: TEMP 98.6
[2020-06-20 16:27] VITALS: BP 156/64; PULSE 71
== END 2020-06-20 16:29 | disposition home or self-care (01) ==
LOC: JONCCHEMO 07:11
PROVIDERS: ATTEND Internal Medicine Hematology & Oncology
PROC: 3E01305 Introduction of Other Antineoplastic into Subcutaneous Tissue, Percutaneous Approach (ICD-10-PCS; principal; 2020-06-20)
PROC: 3E0337Z Introduction of Electrolytic and Water Balance Substance into Peripheral Vein, Percutaneous Approach (ICD-10-PCS; 2020-06-20)
DX: Z51.11 Encounter for antineoplastic chemotherapy (principal); C90.00 Multiple myeloma not having achieved remission
CPT/HCPCS: 36415; 80048; 80076; 83615; 83735; 84550; 85025; 96360; 96401; J9041

== ENCOUNTER 2020-07-11 07:26 | Day surgery (SDC) | payer OTHER, BC ==
[2020-07-11] MEDS ORDERED: SODIUM CHLORIDE 250 ML IV ONE (09:00)
[2020-07-11] MEDS ORDERED: amLODIPine BESYLATE 10 MG TABLET (FP) PO ONE (09:30)
[2020-07-11] MEDS ORDERED: DEXAMETHASONE 4 MG TABLET (FP) PO ONE (10:00)
[2020-07-11] MEDS ORDERED: BORTEZOMIB (VELCADE) 2.5 MG/ML SUB-Q INJECTION SQ ONE (10:00)
[2020-07-11 15:07] LABS: BASO % 0.7 % (0-2.0); EOS % 3.9 % (0-4.5); HEMATOCRIT 27.6 % (32.4-45.2); HEMOGLOBIN 9.3 GM/dL (10.7-15.3); LYMPH % 9.6 % (8-40); MCH 30.9 pg (25.7-33.7); MCHC 33.6 g/dl (32.0-36.0); MEAN CELL VOLUME 92.1 fl (80-96); NEUT % 78.8 % (42.8-82.8); PLATELET COUNT 143 K/MM3 (134-434); RDW 17.8 % (11.6-15.6); WHITE BLOOD COUNT 4.8 K/mm3 (4.0-10.0)
[2020-07-11 15:33] LABS: BLOOD UREA NITROGEN 21.4 mg/dL (7-18); CALCIUM 8.4 mg/dL (8.5-10.1); MAGNESIUM 1.8 mg/dL (1.8-2.4)
[2020-07-11 15:34] LABS: ALBUMIN 3.3 g/dl (3.4-5.0)
[2020-07-11 15:36] LABS: CREATININE 1.1 mg/dL (0.55-1.3)
[2020-07-11 15:37] LABS: BILIRUBIN,DIRECT 0.1 mg/dL (0.0-0.2); TOT PROT 5.8 g/dl (6.4-8.2)
[2020-07-11 15:39] LABS: BILIRUBIN,TOTAL 0.4 mg/dL (0.2-1)
[2020-07-11 15:41] LABS: URIC ACID 4.8 mg/dL (2.6-7.2)
[2020-07-11] MEDS ORDERED: MAGNESIUM OXIDE 400 MG TABLET (FP) PO ONE (16:14)
[2020-07-11] MEDS ORDERED: POTASSIUM CHLORIDE TABS 20 MEQ TABLET.ER (FP) PO ONE (16:14)
[2020-07-11 17:17] VITALS: BP 148/72; PULSE 71; TEMP 99.3
== END 2020-07-11 17:19 | disposition home or self-care (01) ==
LOC: JONCCHEMO 07:26
PROVIDERS: ATTEND Internal Medicine Hematology & Oncology
PROC: 3E01305 Introduction of Other Antineoplastic into Subcutaneous Tissue, Percutaneous Approach (ICD-10-PCS; principal; 2020-07-11)
PROC: 3E033GC Introduction of Other Therapeutic Substance into Peripheral Vein, Percutaneous Approach (ICD-10-PCS; 2020-07-11)
DX: Z51.11 Encounter for antineoplastic chemotherapy (principal); C90.00 Multiple myeloma not having achieved remission
CPT/HCPCS: 36415; 80048; 80076; 83615; 83735; 84550; 85025; 96360; 96401; J9041

== ENCOUNTER 2020-07-25 07:40 | Day surgery (SDC) | payer OTHER, BC ==
[2020-07-25] MEDS ORDERED: DEXAMETHASONE 4 MG TABLET (FP) PO ONE (10:00)
[2020-07-25] MEDS ORDERED: SODIUM CHLORIDE 250 ML IV ONE (10:00)
[2020-07-25] MEDS ORDERED: amLODIPine BESYLATE 10 MG TABLET (FP) PO ONE (10:00)
[2020-07-25] MEDS ORDERED: BORTEZOMIB (VELCADE) 2.5 MG/ML SUB-Q INJECTION SQ ONE (10:30)
[2020-07-25 15:10] LABS: BASO % 0.4 % (0-2.0); EOS % 7.4 % (0-4.5); HEMATOCRIT 15.3 % (32.4-45.2); MCH 31.8 pg (25.7-33.7); MCHC 32.5 g/dl (32.0-36.0); MEAN CELL VOLUME 97.6 fl (80-96); MEAN PLT VOLUME 8.2 fl (7.5-11.1); MONO % 13.8 % (3.8-10.2); NEUT % 68.4 % (42.8-82.8); PLATELET COUNT 73 K/MM3 (134-434); RBC 1.57 M/mm3 (3.60-5.2); RDW 17.7 % (11.6-15.6); WHITE BLOOD COUNT 2.9 K/mm3 (4.0-10.0)
[2020-07-25 15:36] LABS: POTASSIUM 4.1 mmol/L (3.5-5.1)
[2020-07-25 15:39] LABS: CALCIUM 8.3 mg/dL (8.5-10.1)
[2020-07-25 15:40] LABS: ALBUMIN 2.8 g/dl (3.4-5.0); MAGNESIUM 1.7 mg/dL (1.8-2.4)
[2020-07-25 15:42] LABS: URIC ACID 4.2 mg/dL (2.6-7.2)
[2020-07-25 15:43] LABS: BILIRUBIN,DIRECT 0.1 mg/dL (0.0-0.2)
[2020-07-25 15:44] LABS: BILIRUBIN,TOTAL 0.4 mg/dL (0.2-1); TOT PROT 5.2 g/dl (6.4-8.2)
[2020-07-25 16:02] LABS: BLOOD UREA NITROGEN 20.2 mg/dL (7-18); CREATININE 0.9 mg/dL (0.55-1.3)
[2020-07-25] MEDS ORDERED: MAGNESIUM OXIDE 400 MG TABLET (FP) PO ONE (16:08)
[2020-07-25 16:14] LABS: BASO % 0.5 % (0-2.0); EOS % 7.4 % (0-4.5); HEMATOCRIT 25.6 % (32.4-45.2); HEMOGLOBIN 8.6 GM/dL (10.7-15.3); LYMPH % 9.7 % (8-40); MCH 31.4 pg (25.7-33.7); MCHC 33.7 g/dl (32.0-36.0); MEAN CELL VOLUME 93.1 fl (80-96); MEAN PLT VOLUME 8.5 fl (7.5-11.1); MONO % 12.7 % (3.8-10.2); NEUT % 69.7 % (42.8-82.8); PLATELET COUNT 109 K/MM3 (134-434); RBC 2.75 M/mm3 (3.60-5.2); WHITE BLOOD COUNT 4.8 K/mm3 (4.0-10.0)
[2020-07-25 17:15] LABS: POTASSIUM 3.4 mmol/L (3.5-5.1)
[2020-07-25 17:17] LABS: BLOOD UREA NITROGEN 21.3 mg/dL (7-18); CALCIUM 8.7 mg/dL (8.5-10.1); MAGNESIUM 1.8 mg/dL (1.8-2.4)
[2020-07-25 17:20] LABS: CREATININE 0.9 mg/dL (0.55-1.3)
[2020-07-25 17:22] LABS: BILIRUBIN,TOTAL 0.3 mg/dL (0.2-1); TOT PROT 5.2 g/dl (6.4-8.2)
[2020-07-25] MEDS ORDERED: POTASSIUM CHLORIDE TABS 20 MEQ TABLET.ER (FP) PO ONE (17:23)
[2020-07-25 18:04] VITALS: TEMP 98.7
[2020-07-25 18:21] VITALS: BP 143/62; PULSE 69
== END 2020-07-25 17:55 | disposition home or self-care (01) ==
LOC: JONCCHEMO 07:40
PROVIDERS: ATTEND Internal Medicine Hematology & Oncology
DX: Z51.11 Encounter for antineoplastic chemotherapy (principal); C90.00 Multiple myeloma not having achieved remission
CPT/HCPCS: 36415; 80048; 80053; 80076; 83615; 83735; 84550; 85025; 96360; 96401; J9041

== ENCOUNTER 2020-08-01 08:41 | Day surgery (SDC) | payer OTHER, BC ==
[2020-08-01] MEDS ORDERED: DEXAMETHASONE 4 MG TABLET (FP) PO ONE (10:00)
[2020-08-01] MEDS ORDERED: SODIUM CHLORIDE 250 ML IV ONE (10:00)
[2020-08-01] MEDS ORDERED: amLODIPine BESYLATE 10 MG TABLET (FP) PO ONE (10:00)
[2020-08-01] MEDS ORDERED: BORTEZOMIB (VELCADE) 2.5 MG/ML SUB-Q INJECTION SQ ONE (10:30)
[2020-08-01] MEDS ORDERED: MAGNESIUM SULF 50% (8.12 MEQ/2 ML-1 GM VIAL) IVPB ONE (13:05)
[2020-08-01 14:06] LABS: BASO % 1.5 % (0-2.0); EOS % 2.3 % (0-4.5); HEMATOCRIT 27.4 % (32.4-45.2); HEMOGLOBIN 9.4 GM/dL (10.7-15.3); LYMPH % 15.4 % (8-40); MCHC 34.2 g/dl (32.0-36.0); MEAN CELL VOLUME 93.5 fl (80-96); MEAN PLT VOLUME 8.4 fl (7.5-11.1); NEUT % 61.8 % (42.8-82.8); PLATELET COUNT 127 K/MM3 (134-434); RBC 2.93 M/mm3 (3.60-5.2); RDW 18.5 % (11.6-15.6); WHITE BLOOD COUNT 4.3 K/mm3 (4.0-10.0)
[2020-08-01 14:35] LABS: POTASSIUM 3.4 mmol/L (3.5-5.1)
[2020-08-01 14:37] LABS: CALCIUM 8.8 mg/dL (8.5-10.1); MAGNESIUM 1.7 mg/dL (1.8-2.4)
[2020-08-01 14:38] LABS: ALBUMIN 3.2 g/dl (3.4-5.0); BLOOD UREA NITROGEN 20.3 mg/dL (7-18)
[2020-08-01 14:40] LABS: BILIRUBIN,DIRECT 0.1 mg/dL (0.0-0.2); URIC ACID 4.8 mg/dL (2.6-7.2)
[2020-08-01 14:42] LABS: TOT PROT 5.7 g/dl (6.4-8.2)
[2020-08-01 14:43] LABS: BILIRUBIN,TOTAL 0.5 mg/dL (0.2-1)
[2020-08-01] MEDS ORDERED: POTASSIUM CHLORIDE TABS 20 MEQ TABLET.ER (FP) PO ONE (14:47)
[2020-08-01 15:59] LABS: EPI CELLS 7 /uL (0-25.1); HYALINE CASTS 2 /uL (0-3.1); URINE APPEARANCE CLEAR; URINE BACTERIA 16 /uL (0-1359); URINE BILIRUBIN NEGATIVE (NEGATIVE); URINE COLOR YELLOW; URINE GLUCOSE (UA) NEGATIVE (NEGATIVE); URINE KETONE TRACE (NEGATIVE); URINE LEUK ESTERASE NEGATIVE (NEGATIVE); URINE NITRITE NEGATIVE (NEGATIVE); URINE PROTEIN 2+ (NEGATIVE); URINE RBC 12 /uL (0-23.9); URINE UROBILINOGEN 0.2 mg/dL (0.2-1.0); URINE WBC 8 /uL (0-25.8)
[2020-08-01 17:05] VITALS: BP 156/72; PULSE 70; TEMP 98.3
== END 2020-08-01 16:00 | disposition home or self-care (01) ==
LOC: JONCCHEMO 08:41
PROVIDERS: ATTEND Internal Medicine Hematology & Oncology
PROC: 3E01305 Introduction of Other Antineoplastic into Subcutaneous Tissue, Percutaneous Approach (ICD-10-PCS; principal; 2020-08-01)
PROC: 3E033GC Introduction of Other Therapeutic Substance into Peripheral Vein, Percutaneous Approach (ICD-10-PCS; 2020-08-01)
DX: Z51.11 Encounter for antineoplastic chemotherapy (principal); C90.00 Multiple myeloma not having achieved remission
CPT/HCPCS: 36415; 80048; 80076; 81003; 83615; 83735; 84550; 85025; 87086; 96365; 96366; 96401; J9041

== ENCOUNTER 2020-08-15 07:42 | Day surgery (SDC) | payer OTHER, BC ==
[2020-08-15] MEDS ORDERED: SODIUM CHLORIDE 250 ML IV ONE (09:00)
[2020-08-15] MEDS ORDERED: POTASSIUM CHLORIDE TABS 20 MEQ TABLET.ER (FP) PO ONE (10:00)
[2020-08-15] MEDS ORDERED: amLODIPine BESYLATE 10 MG TABLET (FP) PO ONE (10:00)
[2020-08-15] MEDS ORDERED: DEXAMETHASONE 4 MG TABLET (FP) PO ONE (10:00)
[2020-08-15] MEDS ORDERED: MAGNESIUM SULFATE IN WATER 2 GM/50 ML IVPB IVPB ONE (10:00)
[2020-08-15] MEDS ORDERED: BORTEZOMIB (VELCADE) 2.5 MG/ML SUB-Q INJECTION SQ ONE (10:30)
[2020-08-15] MEDS ORDERED: ACETAMINOPHEN 325 MG TABLET (FP) PO ONE (13:01)
[2020-08-15] MEDS ORDERED: oxyCODONE HCL 5 MG TABLET PO ONE (13:01)
[2020-08-15 15:35] LABS: BASO % 1.7 % (0-2.0); EOS % 4.5 % (0-4.5); HEMATOCRIT 25.9 % (32.4-45.2); HEMOGLOBIN 8.6 GM/dL (10.7-15.3); LYMPH % 9.2 % (8-40); MCH 31.5 pg (25.7-33.7); MCHC 33.3 g/dl (32.0-36.0); MEAN CELL VOLUME 94.3 fl (80-96); MEAN PLT VOLUME 8.3 fl (7.5-11.1); MONO % 10.1 % (3.8-10.2); NEUT % 74.5 % (42.8-82.8); PLATELET COUNT 145 K/MM3 (134-434); RBC 2.74 M/mm3 (3.60-5.2); RDW 17.4 % (11.6-15.6); WHITE BLOOD COUNT 5.3 K/mm3 (4.0-10.0)
[2020-08-15 15:57] LABS: POTASSIUM 3.6 mmol/L (3.5-5.1)
[2020-08-15 15:59] LABS: BLOOD UREA NITROGEN 18.1 mg/dL (7-18); CALCIUM 8.6 mg/dL (8.5-10.1)
[2020-08-15 16:02] LABS: CREATININE 0.9 mg/dL (0.55-1.3); URIC ACID 3.3 mg/dL (2.6-7.2)
[2020-08-15 16:40] LABS: ALBUMIN 3.2 g/dl (3.4-5.0)
[2020-08-15 16:42] LABS: BILIRUBIN,DIRECT 0.1 mg/dL (0.0-0.2)
[2020-08-15 16:44] LABS: BILIRUBIN,TOTAL 0.6 mg/dL (0.2-1); TOT PROT 5.9 g/dl (6.4-8.2)
[2020-08-15 16:54] VITALS: TEMP 98.7
[2020-08-15 17:46] VITALS: BP 173/64; PULSE 69
[2020-08-20 15:58] LABS: FREE KAPPA,SERUM 25.7
[2020-08-20 20:07] LABS: TOTAL PROTEIN, URINE 19.7 mg/dL (Not Estab.)
[2020-08-22 11:27] LABS: FREE KAP CHN UR 66.39; KAPPA LAMBDA RATIO URIN 11.18
== END 2020-08-15 20:21 | disposition home or self-care (01) ==
LOC: JONCCHEMO 07:42
PROVIDERS: ATTEND Internal Medicine Hematology & Oncology
PROC: 3E01305 Introduction of Other Antineoplastic into Subcutaneous Tissue, Percutaneous Approach (ICD-10-PCS; principal; 2020-08-15)
PROC: 3E033GC Introduction of Other Therapeutic Substance into Peripheral Vein, Percutaneous Approach (ICD-10-PCS; 2020-08-15)
PROC: 3E033GC Introduction of Other Therapeutic Substance into Peripheral Vein, Percutaneous Approach (ICD-10-PCS; 2020-08-15)
DX: Z51.11 Encounter for antineoplastic chemotherapy (principal); C90.00 Multiple myeloma not having achieved remission
CPT/HCPCS: 36415; 80048; 80076; 82784; 83615; 83735; 83883; 84155; 84156; 84157; 84165; 84550; 85025; 86335; 96361; 96365; 96401; J9041

== ENCOUNTER 2020-08-22 07:34 | Day surgery (SDC) | payer OTHER, BC ==
[~2020-08-22 07:34] MED LIST changes: +MAGNESIUM SULFATE IN WATER 2 GM/50 ML IVPB IVPB ONE; +POTASSIUM CHLORIDE TABS 20 MEQ TABLET.ER (FP) PO ONE; +amLODIPine BESYLATE 10 MG TABLET (FP) PO ONE
[2020-08-22] MEDS ORDERED: SODIUM CHLORIDE 250 ML IV ONE (09:00)
[2020-08-22] MEDS ORDERED: MAGNESIUM SULFATE IN WATER 2 GM/50 ML IVPB IVPB ONE (10:00)
[2020-08-22] MEDS ORDERED: POTASSIUM CHLORIDE TABS 20 MEQ TABLET.ER (FP) PO ONE (10:00)
[2020-08-22] MEDS ORDERED: amLODIPine BESYLATE 10 MG TABLET (FP) PO ONE (10:00)
[2020-08-22] MEDS ORDERED: DEXAMETHASONE 4 MG TABLET (FP) PO ONE (10:00)
[2020-08-22] MEDS ORDERED: BORTEZOMIB (VELCADE) 2.5 MG/ML SUB-Q INJECTION SQ ONE (10:00)
[2020-08-22] MEDS ORDERED: DENOSUMAB 120 MG/1.7 ML VIAL SQ ONE (10:30)
[2020-08-22 14:36] LABS: BASO % 0.7 % (0-2.0); EOS % 7.9 % (0-4.5); HEMOGLOBIN 8.7 GM/dL (10.7-15.3); LYMPH % 11.9 % (8-40); MCH 31.7 pg (25.7-33.7); MCHC 33.3 g/dl (32.0-36.0); MEAN CELL VOLUME 95.2 fl (80-96); MEAN PLT VOLUME 8.8 fl (7.5-11.1); MONO % 22.7 % (3.8-10.2); NEUT % 56.8 % (42.8-82.8); PLATELET COUNT 112 K/MM3 (134-434); RBC 2.73 M/mm3 (3.60-5.2); RDW 17.7 % (11.6-15.6); WHITE BLOOD COUNT 4.2 K/mm3 (4.0-10.0)
[2020-08-22 15:02] LABS: POTASSIUM 3.2 mmol/L (3.5-5.1)
[2020-08-22 15:04] LABS: MAGNESIUM 1.7 mg/dL (1.8-2.4)
[2020-08-22 15:05] LABS: ALBUMIN 3.2 g/dl (3.4-5.0); ANISOCYTOSIS 1+; BLOOD UREA NITROGEN 16.2 mg/dL (7-18); CALCIUM 8.6 mg/dL (8.5-10.1); MACROCYTOSIS 0; PLATELET ESTIMATE DECREASED
[2020-08-22 15:07] LABS: URIC ACID 3.3 mg/dL (2.6-7.2)
[2020-08-22 15:08] LABS: BILIRUBIN,DIRECT 0.2 mg/dL (0.0-0.2)
[2020-08-22 15:09] LABS: TOT PROT 5.5 g/dl (6.4-8.2)
[2020-08-22 15:10] LABS: BILIRUBIN,TOTAL 0.5 mg/dL (0.2-1)
[2020-08-22 18:58] VITALS: BP 165/61; PULSE 75; TEMP 98.1
[2020-08-24 04:10] LABS: IGA IMMUNOGLOBULIN 62 mg/dL (64-422); IGG QN IMMUNOGLOBULIN 351 mg/dL (586-1602); IGM QN SERUM 19 mg/dL (26-217)
== END 2020-08-22 15:45 | disposition home or self-care (01) ==
LOC: JONCCHEMO 07:34
PROVIDERS: ATTEND Internal Medicine Hematology & Oncology
PROC: 3E033GC Introduction of Other Therapeutic Substance into Peripheral Vein, Percutaneous Approach (ICD-10-PCS; principal; 2020-08-22)
PROC: 3E033GC Introduction of Other Therapeutic Substance into Peripheral Vein, Percutaneous Approach (ICD-10-PCS; 2020-08-22)
PROC: 3E01305 Introduction of Other Antineoplastic into Subcutaneous Tissue, Percutaneous Approach (ICD-10-PCS; 2020-08-22)
DX: Z51.11 Encounter for antineoplastic chemotherapy (principal); C90.00 Multiple myeloma not having achieved remission
CPT/HCPCS: 36415; 80048; 80076; 82784; 83615; 83735; 83883; 84155; 84165; 84550; 85025; 86335; 96361; 96365; 96401; J0897; J9041

== ENCOUNTER 2020-08-29 12:50 | Day surgery (SDC) | payer OTHER, BC ==
[2020-08-29 15:18] LABS: EOS % 3.8 % (0-4.5); HEMATOCRIT 27.7 % (32.4-45.2); HEMOGLOBIN 9.4 GM/dL (10.7-15.3); LYMPH % 8.9 % (8-40); MCH 32.1 pg (25.7-33.7); MCHC 33.9 g/dl (32.0-36.0); MEAN CELL VOLUME 94.8 fl (80-96); MEAN PLT VOLUME 8.5 fl (7.5-11.1); MONO % 16.9 % (3.8-10.2); NEUT % 69.4 % (42.8-82.8); PLATELET COUNT 139 K/MM3 (134-434); RBC 2.92 M/mm3 (3.60-5.2); RDW 17.1 % (11.6-15.6); WHITE BLOOD COUNT 5.7 K/mm3 (4.0-10.0)
[2020-08-29 15:52] LABS: POTASSIUM 3.1 mmol/L (3.5-5.1)
[2020-08-29 15:55] LABS: CALCIUM 8.9 mg/dL (8.5-10.1); MAGNESIUM 1.9 mg/dL (1.8-2.4)
[2020-08-29 15:56] LABS: ALBUMIN 3.4 g/dl (3.4-5.0); BLOOD UREA NITROGEN 22.7 mg/dL (7-18)
[2020-08-29 15:58] LABS: URIC ACID 3.6 mg/dL (2.6-7.2)
[2020-08-29 16:00] LABS: BILIRUBIN,DIRECT 0.2 mg/dL (0.0-0.2); TOT PROT 5.7 g/dl (6.4-8.2)
[2020-08-29 16:01] LABS: BILIRUBIN,TOTAL 0.4 mg/dL (0.2-1)
[2020-08-29 17:00] VITALS: TEMP 99.1
[2020-08-29 17:09] VITALS: BP 149/59; PULSE 68
== END 2020-08-29 16:40 | disposition home or self-care (01) ==
LOC: JONCCHEMO 12:50
PROVIDERS: ATTEND Internal Medicine Hematology & Oncology
PROC: 3E033GC Introduction of Other Therapeutic Substance into Peripheral Vein, Percutaneous Approach (ICD-10-PCS; principal; 2020-08-29)
PROC: 3E033GC Introduction of Other Therapeutic Substance into Peripheral Vein, Percutaneous Approach (ICD-10-PCS; 2020-08-29)
PROC: 3E01305 Introduction of Other Antineoplastic into Subcutaneous Tissue, Percutaneous Approach (ICD-10-PCS; 2020-08-29)
DX: Z51.11 Encounter for antineoplastic chemotherapy (principal); C90.00 Multiple myeloma not having achieved remission
CPT/HCPCS: 36415; 80048; 80076; 83615; 83735; 84550; 85025; 96361; 96365; 96401; J9041

== ENCOUNTER 2020-09-05 07:46 | Day surgery (SDC) | payer OTHER, BC ==
[2020-09-05] MEDS ORDERED: amLODIPine BESYLATE 10 MG TABLET (FP) PO ONE (10:00)
[2020-09-05] MEDS ORDERED: DEXAMETHASONE 4 MG TABLET (FP) PO ONE (10:00)
[2020-09-05] MEDS ORDERED: BORTEZOMIB (VELCADE) 2.5 MG/ML SUB-Q INJECTION SQ ONE (10:00)
[2020-09-05] MEDS ORDERED: SODIUM CHLORIDE 250 ML IV ONE (10:00)
[2020-09-05] MEDS ORDERED: LIDOCAINE 5% TOPICAL PATCH TP ONE (13:14)
[2020-09-05 15:02] LABS: BASO % 1.8 % (0-2.0); HEMATOCRIT 23.1 % (32.4-45.2); HEMOGLOBIN 7.7 GM/dL (10.7-15.3); LYMPH % 9.9 % (8-40); MCH 32.1 pg (25.7-33.7); MCHC 33.5 g/dl (32.0-36.0); MEAN CELL VOLUME 95.8 fl (80-96); MEAN PLT VOLUME 8.4 fl (7.5-11.1); MONO % 19.9 % (3.8-10.2); NEUT % 65.4 % (42.8-82.8); PLATELET COUNT 140 K/MM3 (134-434); RBC 2.41 M/mm3 (3.60-5.2); RDW 17.3 % (11.6-15.6); WHITE BLOOD COUNT 4.3 K/mm3 (4.0-10.0)
[2020-09-05 15:24] LABS: POTASSIUM 3.6 mmol/L (3.5-5.1)
[2020-09-05 15:28] LABS: CALCIUM 8.5 mg/dL (8.5-10.1)
[2020-09-05 15:29] LABS: ALBUMIN 3.2 g/dl (3.4-5.0); BLOOD UREA NITROGEN 20.1 mg/dL (7-18)
[2020-09-05 15:32] LABS: BILIRUBIN,DIRECT 0.1 mg/dL (0.0-0.2)
[2020-09-05 15:34] LABS: BILIRUBIN,TOTAL 0.4 mg/dL (0.2-1); TOT PROT 5.6 g/dl (6.4-8.2)
[2020-09-05 16:32] VITALS: PULSE 78; TEMP 99
[2020-09-05 16:46] VITALS: BP 145/68
[2020-09-05] MEDS ORDERED: LIDOCAINE PATCH REMOVAL MC SCH (22:00)
== END 2020-09-05 16:20 | disposition home or self-care (01) ==
LOC: JONCCHEMO 07:46
PROVIDERS: ATTEND Internal Medicine Hematology & Oncology
DX: Z51.11 Encounter for antineoplastic chemotherapy (principal); C90.00 Multiple myeloma not having achieved remission
CPT/HCPCS: 36415; 80048; 80076; 83615; 83735; 84550; 85025; 96360; 96401; J9041

== ENCOUNTER 2020-09-07 06:51 | Day surgery (SDC) | payer OTHER, BC ==
[2020-09-07 10:45] LABS: EOS % 1.7 % (0-4.5); HEMATOCRIT 26.3 % (32.4-45.2); HEMOGLOBIN 8.8 GM/dL (10.7-15.3); LYMPH % 7.1 % (8-40); MCH 32.3 pg (25.7-33.7); MCHC 33.6 g/dl (32.0-36.0); MEAN CELL VOLUME 96.3 fl (80-96); MEAN PLT VOLUME 8.8 fl (7.5-11.1); MONO % 15.2 % (3.8-10.2); PLATELET COUNT 152 K/MM3 (134-434); RBC 2.73 M/mm3 (3.60-5.2); RDW 17.6 % (11.6-15.6); WHITE BLOOD COUNT 5.4 K/mm3 (4.0-10.0)
[2020-09-07 17:01] VITALS: BP 169/63; PULSE 77; TEMP 98.6
[2020-09-07 17:38] LABS: BASO % 0.7 % (0-2.0); HEMATOCRIT 29.2 % (32.4-45.2); HEMOGLOBIN 9.9 GM/dL (10.7-15.3); LYMPH % 7.3 % (8-40); MCH 31.9 pg (25.7-33.7); MCHC 33.7 g/dl (32.0-36.0); MEAN CELL VOLUME 94.7 fl (80-96); MONO % 16.9 % (3.8-10.2); NEUT % 71.1 % (42.8-82.8); PLATELET COUNT 140 K/MM3 (134-434); RBC 3.09 M/mm3 (3.60-5.2); RDW 17.4 % (11.6-15.6); WHITE BLOOD COUNT 5.3 K/mm3 (4.0-10.0)
== END 2020-09-07 17:30 | disposition home or self-care (01) ==
LOC: JONCBLOOD 06:51
PROVIDERS: ATTEND Internal Medicine Hematology & Oncology
PROC: 30233N1 Transfusion of Nonautologous Red Blood Cells into Peripheral Vein, Percutaneous Approach (ICD-10-PCS; principal; 2020-09-07)
DX: C90.00 Multiple myeloma not having achieved remission (principal); C79.51 Secondary malignant neoplasm of bone
CPT/HCPCS: 36415; 36430; 36511; 85025; 86850; 86900; 86901; 86922; P9038; P9058

== ENCOUNTER 2020-09-12 07:51 | Day surgery (SDC) | payer OTHER, BC ==
[2020-09-12] MEDS ORDERED: SODIUM CHLORIDE 250 ML IV ONE (09:00)
[2020-09-12] MEDS ORDERED: MAGNESIUM SULFATE IN WATER 2 GM/50 ML IVPB IVPB ONE (10:00)
[2020-09-12] MEDS ORDERED: BORTEZOMIB (VELCADE) 2.5 MG/ML SUB-Q INJECTION SQ ONE (10:00)
[2020-09-12] MEDS ORDERED: DEXAMETHASONE 4 MG TABLET (FP) PO ONE (10:00)
[2020-09-12] MEDS ORDERED: POTASSIUM CHLORIDE TABS 20 MEQ TABLET.ER (FP) PO ONE (10:00)
[2020-09-12] MEDS ORDERED: amLODIPine BESYLATE 10 MG TABLET (FP) PO ONE (10:00)
[2020-09-12 14:13] LABS: BASO % 1.1 % (0-2.0); EOS % 2.6 % (0-4.5); HEMATOCRIT 30.2 % (32.4-45.2); HEMOGLOBIN 10.3 GM/dL (10.7-15.3); LYMPH % 9.9 % (8-40); MCH 32.2 pg (25.7-33.7); MCHC 34.2 g/dl (32.0-36.0); MEAN CELL VOLUME 94.2 fl (80-96); MEAN PLT VOLUME 9.3 fl (7.5-11.1); NEUT % 74.4 % (42.8-82.8); PLATELET COUNT 131 K/MM3 (134-434); RBC 3.21 M/mm3 (3.60-5.2); RDW 16.5 % (11.6-15.6); WHITE BLOOD COUNT 7.2 K/mm3 (4.0-10.0)
[2020-09-12 14:50] LABS: CALCIUM 8.2 mg/dL (8.5-10.1)
[2020-09-12 14:51] LABS: ALBUMIN 3.2 g/dl (3.4-5.0); BLOOD UREA NITROGEN 17.5 mg/dL (7-18)
[2020-09-12 14:53] LABS: BILIRUBIN,DIRECT 0.1 mg/dL (0.0-0.2); URIC ACID 3.5 mg/dL (2.6-7.2)
[2020-09-12 14:54] LABS: CREATININE 0.9 mg/dL (0.55-1.3)
[2020-09-12 14:55] LABS: TOT PROT 6.3 g/dl (6.4-8.2)
[2020-09-12 16:29] LABS: CALCIUM 8.1 mg/dL (8.5-10.1)
[2020-09-12 16:30] LABS: ALBUMIN 3.2 g/dl (3.4-5.0); BLOOD UREA NITROGEN 16.7 mg/dL (7-18)
[2020-09-12 16:31] LABS: BILIRUBIN,DIRECT 0.2 mg/dL (0.0-0.2)
[2020-09-12 16:33] LABS: BILIRUBIN,TOTAL 0.5 mg/dL (0.2-1); CREATININE 0.9 mg/dL (0.55-1.3)
[2020-09-12 16:35] LABS: TOT PROT 5.8 g/dl (6.4-8.2)
[2020-09-12 16:52] LABS: POTASSIUM 2.7 mmol/L (3.5-5.1)
[2020-09-12 17:02] VITALS: TEMP 97.7
[2020-09-12 17:10] VITALS: BP 159/57; PULSE 80
== END 2020-09-12 16:40 | disposition home or self-care (01) ==
LOC: JONCCHEMO 07:51
PROVIDERS: ATTEND Internal Medicine Hematology & Oncology
PROC: 3E01305 Introduction of Other Antineoplastic into Subcutaneous Tissue, Percutaneous Approach (ICD-10-PCS; principal; 2020-09-12)
PROC: 3E033GC Introduction of Other Therapeutic Substance into Peripheral Vein, Percutaneous Approach (ICD-10-PCS; 2020-09-12)
PROC: 3E033GC Introduction of Other Therapeutic Substance into Peripheral Vein, Percutaneous Approach (ICD-10-PCS; 2020-09-12)
DX: Z51.11 Encounter for antineoplastic chemotherapy (principal); C90.00 Multiple myeloma not having achieved remission; C79.51 Secondary malignant neoplasm of bone
CPT/HCPCS: 36415; 80048; 80076; 82306; 82784; 83615; 83883; 84155; 84156; 84157; 84165; 84550; 85025; 86335; 96361; 96365; 96401; J9041

== ENCOUNTER 2020-09-26 10:33 | Day surgery (SDC) | payer OTHER, BC ==
[~2020-09-26 10:33] MED LIST changes: +DENOSUMAB 120 MG/1.7 ML VIAL SQ ONE
[2020-09-26 14:42] LABS: BASO % 0.9 % (0-2.0); EOS % 6.4 % (0-4.5); HEMATOCRIT 27.3 % (32.4-45.2); HEMOGLOBIN 9.5 GM/dL (10.7-15.3); LYMPH % 17.3 % (8-40); MCH 32.2 pg (25.7-33.7); MCHC 34.6 g/dl (32.0-36.0); MEAN CELL VOLUME 93.3 fl (80-96); MEAN PLT VOLUME 8.4 fl (7.5-11.1); MONO % 10.9 % (3.8-10.2); NEUT % 64.5 % (42.8-82.8); PLATELET COUNT 105 K/MM3 (134-434); RBC 2.93 M/mm3 (3.60-5.2); RDW 16.8 % (11.6-15.6); WHITE BLOOD COUNT 3.7 K/mm3 (4.0-10.0)
[2020-09-26 14:53] LABS: POTASSIUM 3.3 mmol/L (3.5-5.1)
[2020-09-26 14:55] LABS: ALBUMIN 3.1 g/dl (3.4-5.0); CALCIUM 8.9 mg/dL (8.5-10.1); MAGNESIUM 1.7 mg/dL (1.8-2.4)
[2020-09-26 14:58] LABS: BILIRUBIN,DIRECT 0.1 mg/dL (0.0-0.2); CREATININE 1.1 mg/dL (0.55-1.3); URIC ACID 3.7 mg/dL (2.6-7.2)
[2020-09-26 15:00] LABS: BILIRUBIN,TOTAL 0.5 mg/dL (0.2-1); TOT PROT 5.5 g/dl (6.4-8.2)
[2020-09-26] MEDS ORDERED: amLODIPine BESYLATE 10 MG TABLET (FP) PO ONE (16:15)
[2020-09-26 16:54] VITALS: TEMP 99
[2020-09-26 16:58] VITALS: BP 162/74; PULSE 74
== END 2020-09-26 16:20 | disposition home or self-care (01) ==
LOC: JONCCHEMO 10:33
PROVIDERS: ATTEND Internal Medicine Hematology & Oncology
PROC: 3E02305 Introduction of Other Antineoplastic into Muscle, Percutaneous Approach (ICD-10-PCS; principal; 2020-09-26)
PROC: 3E013GC Introduction of Other Therapeutic Substance into Subcutaneous Tissue, Percutaneous Approach (ICD-10-PCS; 2020-09-26)
PROC: 3E033GC Introduction of Other Therapeutic Substance into Peripheral Vein, Percutaneous Approach (ICD-10-PCS; 2020-09-26)
PROC: 3E033GC Introduction of Other Therapeutic Substance into Peripheral Vein, Percutaneous Approach (ICD-10-PCS; 2020-09-26)
DX: Z51.11 Encounter for antineoplastic chemotherapy (principal); C90.00 Multiple myeloma not having achieved remission; C79.51 Secondary malignant neoplasm of bone
CPT/HCPCS: 36415; 80048; 80076; 83615; 83735; 84550; 85025; 96361; 96365; 96372; 96401; J0897; J9041

== ENCOUNTER 2020-10-03 07:06 | Day surgery (SDC) | payer OTHER, BC ==
[2020-10-03] MEDS ORDERED: POTASSIUM CHLORIDE TABS 20 MEQ TABLET.ER (FP) PO ONE (10:00)
[2020-10-03] MEDS ORDERED: amLODIPine BESYLATE 10 MG TABLET (FP) PO ONE (10:00)
[2020-10-03] MEDS ORDERED: MAGNESIUM SULFATE IN WATER 2 GM/50 ML IVPB IVPB ONE (10:00)
[2020-10-03] MEDS ORDERED: DEXAMETHASONE 4 MG TABLET (FP) PO ONE (10:00)
[2020-10-03] MEDS ORDERED: SODIUM CHLORIDE 250 ML IV ONE (10:00)
[2020-10-03] MEDS ORDERED: BORTEZOMIB (VELCADE) 2.5 MG/ML SUB-Q INJECTION SQ ONE (10:30)
[2020-10-03 14:48] LABS: POTASSIUM 3.9 mmol/L (3.5-5.1)
[2020-10-03 14:52] LABS: CALCIUM 9.1 mg/dL (8.5-10.1)
[2020-10-03 14:53] LABS: ALBUMIN 3.2 g/dl (3.4-5.0); BLOOD UREA NITROGEN 27.3 mg/dL (7-18); MAGNESIUM 2.2 mg/dL (1.8-2.4)
[2020-10-03 14:55] LABS: BILIRUBIN,DIRECT 0.1 mg/dL (0.0-0.2); URIC ACID 4.2 mg/dL (2.6-7.2)
[2020-10-03 14:57] LABS: BILIRUBIN,TOTAL 0.7 mg/dL (0.2-1); TOT PROT 5.8 g/dl (6.4-8.2)
[2020-10-03 16:19] VITALS: TEMP 97.8
[2020-10-03 16:20] VITALS: BP 153/62; PULSE 68
== END 2020-10-03 16:15 | disposition home or self-care (01) ==
LOC: JONCCHEMO 07:06
PROVIDERS: ATTEND Internal Medicine Hematology & Oncology
PROC: 3E01305 Introduction of Other Antineoplastic into Subcutaneous Tissue, Percutaneous Approach (ICD-10-PCS; principal; 2020-10-03)
PROC: 3E033GC Introduction of Other Therapeutic Substance into Peripheral Vein, Percutaneous Approach (ICD-10-PCS; 2020-10-03)
DX: Z51.11 Encounter for antineoplastic chemotherapy (principal); C90.00 Multiple myeloma not having achieved remission; C79.51 Secondary malignant neoplasm of bone
CPT/HCPCS: 36415; 80048; 80076; 82784; 83615; 83735; 84550; 96365; 96401; J9041

== ENCOUNTER 2020-10-10 06:43 | Day surgery (SDC) | payer OTHER, BC ==
[2020-10-10] MEDS ORDERED: amLODIPine BESYLATE 10 MG TABLET (FP) PO ONE (10:00)
[2020-10-10] MEDS ORDERED: DEXAMETHASONE 4 MG TABLET (FP) PO ONE (10:00)
[2020-10-10] MEDS ORDERED: SODIUM CHLORIDE 250 ML IV ONE (10:00)
[2020-10-10] MEDS ORDERED: BORTEZOMIB (VELCADE) 2.5 MG/ML SUB-Q INJECTION SQ ONE (10:30)
[2020-10-10 15:07] LABS: BASO % 1.4 % (0-2.0); EOS % 2.5 % (0-4.5); HEMOGLOBIN 10.1 GM/dL (10.7-15.3); LYMPH % 13.7 % (8-40); MCH 31.9 pg (25.7-33.7); MCHC 33.8 g/dl (32.0-36.0); MEAN CELL VOLUME 94.3 fl (80-96); MEAN PLT VOLUME 8.9 fl (7.5-11.1); MONO % 12.3 % (3.8-10.2); NEUT % 70.1 % (42.8-82.8); PLATELET COUNT 137 K/MM3 (134-434); RBC 3.18 M/mm3 (3.60-5.2); WHITE BLOOD COUNT 4.5 K/mm3 (4.0-10.0)
[2020-10-10 15:27] LABS: POTASSIUM 3.9 mmol/L (3.5-5.1)
[2020-10-10 15:30] LABS: CALCIUM 9.6 mg/dL (8.5-10.1); MAGNESIUM 2.1 mg/dL (1.8-2.4)
[2020-10-10 15:31] LABS: ALBUMIN 3.3 g/dl (3.4-5.0); BLOOD UREA NITROGEN 27.5 mg/dL (7-18)
[2020-10-10 15:32] LABS: URIC ACID 4.3 mg/dL (2.6-7.2)
[2020-10-10 15:33] LABS: BILIRUBIN,DIRECT 0.1 mg/dL (0.0-0.2); CREATININE 1.1 mg/dL (0.55-1.3)
[2020-10-10 15:35] LABS: TOT PROT 5.9 g/dl (6.4-8.2)
[2020-10-10 15:36] LABS: BILIRUBIN,TOTAL 0.3 mg/dL (0.2-1)
[2020-10-10 18:19] VITALS: TEMP 99.4
[2020-10-10 18:22] VITALS: BP 170/68; PULSE 76
== END 2020-10-10 16:00 | disposition home or self-care (01) ==
LOC: JONCCHEMO 06:43
PROVIDERS: ATTEND Internal Medicine Hematology & Oncology
PROC: 3E01305 Introduction of Other Antineoplastic into Subcutaneous Tissue, Percutaneous Approach (ICD-10-PCS; principal; 2020-10-10)
PROC: 3E033GC Introduction of Other Therapeutic Substance into Peripheral Vein, Percutaneous Approach (ICD-10-PCS; 2020-10-10)
DX: Z51.11 Encounter for antineoplastic chemotherapy (principal); C90.00 Multiple myeloma not having achieved remission; C79.51 Secondary malignant neoplasm of bone
CPT/HCPCS: 36415; 80048; 80076; 83615; 83735; 84550; 85025; 96360; 96401; J9041

== ENCOUNTER 2020-10-17 07:12 | Day surgery (SDC) | payer OTHER, BC ==
[2020-10-17] MEDS ORDERED: BORTEZOMIB (VELCADE) 2.5 MG/ML SUB-Q INJECTION SQ ONE (10:00)
[2020-10-17] MEDS ORDERED: DEXAMETHASONE 4 MG TABLET (FP) PO ONE (10:00)
[2020-10-17] MEDS ORDERED: SODIUM CHLORIDE 250 ML IV ONE (10:00)
[2020-10-17] MEDS ORDERED: POTASSIUM CHLORIDE TABS 20 MEQ TABLET.ER (FP) PO ONE (10:00)
[2020-10-17] MEDS ORDERED: amLODIPine BESYLATE 10 MG TABLET (FP) PO ONE (10:00)
[2020-10-17] MEDS ORDERED: MAGNESIUM SULFATE IN WATER 2 GM/50 ML IVPB IVPB ONE (11:00)
[2020-10-17 14:40] LABS: BASO % 0.7 % (0-2.0); EOS % 2.5 % (0-4.5); HEMOGLOBIN 9.9 GM/dL (10.7-15.3); LYMPH % 10.3 % (8-40); MCH 31.5 pg (25.7-33.7); MCHC 33.1 g/dl (32.0-36.0); MEAN CELL VOLUME 95.2 fl (80-96); MEAN PLT VOLUME 8.8 fl (7.5-11.1); MONO % 12.9 % (3.8-10.2); NEUT % 73.6 % (42.8-82.8); PLATELET COUNT 122 K/MM3 (134-434); RBC 3.15 M/mm3 (3.60-5.2); RDW 17.2 % (11.6-15.6); WHITE BLOOD COUNT 5.8 K/mm3 (4.0-10.0)
[2020-10-17 14:59] LABS: CALCIUM 9.6 mg/dL (8.5-10.1)
[2020-10-17 15:00] LABS: ALBUMIN 3.3 g/dl (3.4-5.0); BLOOD UREA NITROGEN 22.3 mg/dL (7-18); MAGNESIUM 1.8 mg/dL (1.8-2.4)
[2020-10-17 15:03] LABS: BILIRUBIN,DIRECT 0.1 mg/dL (0.0-0.2); URIC ACID 3.7 mg/dL (2.6-7.2)
[2020-10-17 15:04] LABS: BILIRUBIN,TOTAL 0.4 mg/dL (0.2-1)
[2020-10-17 15:05] LABS: TOT PROT 5.9 g/dl (6.4-8.2)
[2020-10-17 17:28] VITALS: TEMP 98.6
[2020-10-17 17:33] VITALS: BP 152/62; PULSE 74
== END 2020-10-17 16:35 | disposition home or self-care (01) ==
LOC: JONCCHEMO 07:12
PROVIDERS: ATTEND Internal Medicine Hematology & Oncology
PROC: 3E0337Z Introduction of Electrolytic and Water Balance Substance into Peripheral Vein, Percutaneous Approach (ICD-10-PCS; principal; 2020-10-17)
PROC: 3E033GC Introduction of Other Therapeutic Substance into Peripheral Vein, Percutaneous Approach (ICD-10-PCS; 2020-10-17)
PROC: 3E01305 Introduction of Other Antineoplastic into Subcutaneous Tissue, Percutaneous Approach (ICD-10-PCS; 2020-10-17)
DX: Z51.11 Encounter for antineoplastic chemotherapy (principal); C90.00 Multiple myeloma not having achieved remission; C79.51 Secondary malignant neoplasm of bone
CPT/HCPCS: 36415; 80048; 80076; 83615; 83735; 84550; 85025; 96360; 96361; 96401; J9041

== ENCOUNTER 2020-10-24 07:17 | Day surgery (SDC) | payer OTHER, BC ==
[2020-10-24] MEDS ORDERED: SODIUM CHLORIDE 250 ML IV ONE (09:00)
[2020-10-24] MEDS ORDERED: POTASSIUM CHLORIDE TABS 20 MEQ TABLET.ER (FP) PO ONE (10:00)
[2020-10-24] MEDS ORDERED: MAGNESIUM SULFATE IN WATER 2 GM/50 ML IVPB IVPB ONE (10:00)
[2020-10-24] MEDS ORDERED: DEXAMETHASONE 4 MG TABLET (FP) PO ONE (10:00)
[2020-10-24] MEDS ORDERED: amLODIPine BESYLATE 10 MG TABLET (FP) PO ONE (10:00)
[2020-10-24] MEDS ORDERED: BORTEZOMIB (VELCADE) 2.5 MG/ML SUB-Q INJECTION SQ ONE (10:00)
[2020-10-24] MEDS ORDERED: DENOSUMAB 120 MG/1.7 ML VIAL SQ ONE (10:30)
[2020-10-24 15:09] LABS: BASO % 0.2 % (0-2.0); EOS % 4.8 % (0-4.5); HEMATOCRIT 27.6 % (32.4-45.2); HEMOGLOBIN 9.2 GM/dL (10.7-15.3); LYMPH % 11.8 % (8-40); MCH 31.7 pg (25.7-33.7); MCHC 33.3 g/dl (32.0-36.0); MEAN CELL VOLUME 94.9 fl (80-96); MEAN PLT VOLUME 8.7 fl (7.5-11.1); MONO % 15.5 % (3.8-10.2); NEUT % 67.7 % (42.8-82.8); PLATELET COUNT 103 K/MM3 (134-434); RBC 2.91 M/mm3 (3.60-5.2); WHITE BLOOD COUNT 4.1 K/mm3 (4.0-10.0)
[2020-10-24 15:32] LABS: CALCIUM 9.4 mg/dL (8.5-10.1); MAGNESIUM 1.9 mg/dL (1.8-2.4)
[2020-10-24 15:35] LABS: BILIRUBIN,DIRECT 0.1 mg/dL (0.0-0.2); URIC ACID 3.4 mg/dL (2.6-7.2)
[2020-10-24 15:37] LABS: BILIRUBIN,TOTAL 0.3 mg/dL (0.2-1); TOT PROT 5.5 g/dl (6.4-8.2)
[2020-10-24 18:33] VITALS: BP 154/69; PULSE 77; TEMP 99.2
[2020-10-29 15:08] LABS: TOTAL PROTEIN, URINE 14.3 mg/dL (Not Estab.)
[2020-11-02 08:18] LABS: FREE KAP CHN UR 91.83
[2020-11-02 08:19] LABS: KAPPA LAMBDA RATIO URIN 12.43
== END 2020-10-24 16:00 | disposition home or self-care (01) ==
LOC: JONCCHEMO 07:17
PROVIDERS: ATTEND Internal Medicine Hematology & Oncology
PROC: 3E033GC Introduction of Other Therapeutic Substance into Peripheral Vein, Percutaneous Approach (ICD-10-PCS; principal; 2020-10-24)
PROC: 3E033GC Introduction of Other Therapeutic Substance into Peripheral Vein, Percutaneous Approach (ICD-10-PCS; 2020-10-24)
DX: Z51.11 Encounter for antineoplastic chemotherapy (principal); C90.00 Multiple myeloma not having achieved remission; C79.51 Secondary malignant neoplasm of bone
CPT/HCPCS: 36415; 80048; 80076; 82784; 83615; 83735; 83883; 84155; 84156; 84157; 84165; 84550; 85025; 96361; 96365; 96401; J0897; J9041

== ENCOUNTER 2020-11-14 07:14 | Day surgery (SDC) | payer OTHER, BC ==
[~2020-11-14 07:14] MED LIST changes: -DENOSUMAB 120 MG/1.7 ML VIAL SQ ONE
[2020-11-14] MEDS ORDERED: amLODIPine BESYLATE 10 MG TABLET (FP) PO ONE (10:00)
[2020-11-14] MEDS ORDERED: POTASSIUM CHLORIDE TABS 20 MEQ TABLET.ER (FP) PO ONE (10:00)
[2020-11-14] MEDS ORDERED: DEXAMETHASONE 4 MG TABLET (FP) PO ONE (10:00)
[2020-11-14] MEDS ORDERED: SODIUM CHLORIDE 250 ML IV ONE (10:00)
[2020-11-14] MEDS ORDERED: MAGNESIUM SULFATE IN WATER 2 GM/50 ML IVPB IVPB ONE (10:00)
[2020-11-14] MEDS ORDERED: BORTEZOMIB (VELCADE) 2.5 MG/ML SUB-Q INJECTION SQ ONE (10:30)
[2020-11-14 15:08] LABS: BASO % 1.1 % (0-2.0); HEMATOCRIT 28.4 % (32.4-45.2); HEMOGLOBIN 9.5 GM/dL (10.7-15.3); LYMPH % 15.4 % (8-40); MCH 31.9 pg (25.7-33.7); MCHC 33.5 g/dl (32.0-36.0); MEAN CELL VOLUME 95.2 fl (80-96); MEAN PLT VOLUME 8.3 fl (7.5-11.1); MONO % 11.2 % (3.8-10.2); NEUT % 68.3 % (42.8-82.8); PLATELET COUNT 173 K/MM3 (134-434); RBC 2.98 M/mm3 (3.60-5.2); RDW 17.1 % (11.6-15.6); WHITE BLOOD COUNT 4.6 K/mm3 (4.0-10.0)
[2020-11-14 15:32] LABS: ALBUMIN 3.3 g/dl (3.4-5.0); BLOOD UREA NITROGEN 22.1 mg/dL (7-18); CALCIUM 8.8 mg/dL (8.5-10.1); MAGNESIUM 1.7 mg/dL (1.8-2.4)
[2020-11-14 15:35] LABS: BILIRUBIN,DIRECT 0.1 mg/dL (0.0-0.2); CREATININE 1.1 mg/dL (0.55-1.3); URIC ACID 3.8 mg/dL (2.6-7.2)
[2020-11-14 15:37] LABS: BILIRUBIN,TOTAL 0.4 mg/dL (0.2-1); TOT PROT 5.9 g/dl (6.4-8.2)
[2020-11-14 17:17] VITALS: TEMP 98.5
[2020-11-14 17:23] VITALS: BP 168/75; PULSE 80
== END 2020-11-14 17:29 | disposition home or self-care (01) ==
LOC: JONCCHEMO 07:14
PROVIDERS: ATTEND Internal Medicine Hematology & Oncology
PROC: 3E033GC Introduction of Other Therapeutic Substance into Peripheral Vein, Percutaneous Approach (ICD-10-PCS; principal; 2020-11-14)
PROC: 3E033GC Introduction of Other Therapeutic Substance into Peripheral Vein, Percutaneous Approach (ICD-10-PCS; 2020-11-14)
DX: Z51.11 Encounter for antineoplastic chemotherapy (principal); C90.00 Multiple myeloma not having achieved remission; C79.51 Secondary malignant neoplasm of bone
CPT/HCPCS: 36415; 80048; 80076; 83615; 83735; 84550; 85025; 96361; 96365; 96401; J9041

== ENCOUNTER 2020-11-21 06:54 | Day surgery (SDC) | payer OTHER, BC ==
[2020-11-21] MEDS ORDERED: SODIUM CHLORIDE 250 ML IV ONE (09:00)
[2020-11-21] MEDS ORDERED: DEXAMETHASONE 4 MG TABLET (FP) PO ONE (10:00)
[2020-11-21] MEDS ORDERED: DENOSUMAB 120 MG/1.7 ML VIAL SQ ONE (10:00)
[2020-11-21] MEDS ORDERED: BORTEZOMIB (VELCADE) 2.5 MG/ML SUB-Q INJECTION SQ ONE (10:00)
[2020-11-21] MEDS ORDERED: amLODIPine BESYLATE 10 MG TABLET (FP) PO ONE (10:00)
[2020-11-21 14:15] LABS: BASO % 0.5 % (0-2.0); EOS % 6.1 % (0-4.5); HEMATOCRIT 28.6 % (32.4-45.2); HEMOGLOBIN 9.5 GM/dL (10.7-15.3); LYMPH % 12.5 % (8-40); MCHC 33.4 g/dl (32.0-36.0); MEAN CELL VOLUME 95.7 fl (80-96); MEAN PLT VOLUME 8.2 fl (7.5-11.1); MONO % 21.6 % (3.8-10.2); NEUT % 59.3 % (42.8-82.8); PLATELET COUNT 138 K/MM3 (134-434); RBC 2.99 M/mm3 (3.60-5.2); RDW 17.5 % (11.6-15.6); WHITE BLOOD COUNT 5.2 K/mm3 (4.0-10.0)
[2020-11-21 14:38] LABS: ANISOCYTOSIS 0; MACROCYTOSIS 0; PLATELET ESTIMATE DECREASED
[2020-11-21 15:06] LABS: ALBUMIN 3.4 g/dl (3.4-5.0); BILIRUBIN,DIRECT 0.1 mg/dL (0.0-0.2); BILIRUBIN,TOTAL 0.6 mg/dL (0.2-1); BLOOD UREA NITROGEN 20.7 mg/dL (7-18); MAGNESIUM 1.9 mg/dL (1.8-2.4); TOT PROT 5.9 g/dl (6.4-8.2); URIC ACID 3.5 mg/dL (2.6-7.2)
[2020-11-21] MEDS ORDERED: POTASSIUM CHLORIDE TABS 20 MEQ TABLET.ER (FP) PO ONE ×2 (15:32→15:45)
[2020-11-21] MEDS ORDERED: MAGNESIUM OXIDE 400 MG TABLET (FP) PO ONE ×2 (15:32→15:45)
[2020-11-21 17:13] LABS: ALBUMIN 3.3 g/dl (3.4-5.0); BLOOD UREA NITROGEN 22.3 mg/dL (7-18); CALCIUM 8.5 mg/dL (8.5-10.1)
[2020-11-21 17:18] LABS: BILIRUBIN,TOTAL 0.3 mg/dL (0.2-1); TOT PROT 5.5 g/dl (6.4-8.2)
[2020-11-21 17:33] VITALS: BP 145/67; PULSE 72; TEMP 98.5
[2020-11-23 19:08] LABS: FREE KAPPA,SERUM 23.7 mg/L (3.3-19.4)
[2020-11-24 04:08] LABS: FREE KAP CHN UR 95.97 mg/L (0.63-113.79); KAPPA LAMBDA RATIO URIN 9.71 (1.03-31.76)
[2020-11-26 17:06] LABS: TOTAL PROTEIN, URINE 27.6 mg/dL (Not Estab.)
== END 2020-11-21 17:00 | disposition home or self-care (01) ==
LOC: JONCCHEMO 06:54
PROVIDERS: ATTEND Internal Medicine Hematology & Oncology
PROC: 3E01305 Introduction of Other Antineoplastic into Subcutaneous Tissue, Percutaneous Approach (ICD-10-PCS; principal; 2020-11-21)
PROC: 3E013GC Introduction of Other Therapeutic Substance into Subcutaneous Tissue, Percutaneous Approach (ICD-10-PCS; 2020-11-21)
PROC: 3E033GC Introduction of Other Therapeutic Substance into Peripheral Vein, Percutaneous Approach (ICD-10-PCS; 2020-11-21)
DX: Z51.11 Encounter for antineoplastic chemotherapy (principal); C90.00 Multiple myeloma not having achieved remission; C79.51 Secondary malignant neoplasm of bone
CPT/HCPCS: 36415; 80048; 80053; 80076; 82784; 83615; 83735; 83883; 84155; 84156; 84157; 84165; 84550; 85025; 86334; 86335; 96360; 96372; 96401; J0897; J9041

== ENCOUNTER 2020-11-28 08:17 | Day surgery (SDC) | payer OTHER, BC ==
[2020-11-28] MEDS ORDERED: SODIUM CHLORIDE 250 ML IV ONE (09:00)
[2020-11-28] MEDS ORDERED: POTASSIUM CHLORIDE TABS 20 MEQ TABLET.ER (FP) PO ONE (10:00)
[2020-11-28] MEDS ORDERED: MAGNESIUM SULFATE IN WATER 2 GM/50 ML IVPB IVPB ONE (10:00)
[2020-11-28] MEDS ORDERED: amLODIPine BESYLATE 10 MG TABLET (FP) PO ONE (10:00)
[2020-11-28] MEDS ORDERED: DEXAMETHASONE 4 MG TABLET (FP) PO ONE (10:00)
[2020-11-28] MEDS ORDERED: BORTEZOMIB (VELCADE) 2.5 MG/ML SUB-Q INJECTION SQ ONE (10:30)
[2020-11-28 14:46] LABS: BASO % 0.6 % (0-2.0); EOS % 3.4 % (0-4.5); HEMATOCRIT 29.5 % (32.4-45.2); HEMOGLOBIN 9.8 GM/dL (10.7-15.3); LYMPH % 13.8 % (8-40); MCH 31.9 pg (25.7-33.7); MCHC 33.3 g/dl (32.0-36.0); MEAN CELL VOLUME 95.9 fl (80-96); MEAN PLT VOLUME 8.6 fl (7.5-11.1); MONO % 16.4 % (3.8-10.2); NEUT % 65.8 % (42.8-82.8); PLATELET COUNT 139 K/MM3 (134-434); RBC 3.08 M/mm3 (3.60-5.2); RDW 17.1 % (11.6-15.6); WHITE BLOOD COUNT 6.5 K/mm3 (4.0-10.0)
[2020-11-28 15:07] LABS: ALBUMIN 3.3 g/dl (3.4-5.0); BLOOD UREA NITROGEN 26.3 mg/dL (7-18)
[2020-11-28 15:09] LABS: BILIRUBIN,DIRECT 0.1 mg/dL (0.0-0.2); URIC ACID 4.8 mg/dL (2.6-7.2)
[2020-11-28 15:10] LABS: CREATININE 1.1 mg/dL (0.55-1.3)
[2020-11-28 15:11] LABS: BILIRUBIN,TOTAL 0.5 mg/dL (0.2-1); TOT PROT 5.8 g/dl (6.4-8.2)
[2020-11-28 16:43] VITALS: PULSE 67; TEMP 98.2
[2020-11-28 17:00] VITALS: BP 177/65
== END 2020-11-28 16:25 | disposition home or self-care (01) ==
LOC: JONCCHEMO 08:17
PROVIDERS: ATTEND Internal Medicine Hematology & Oncology
PROC: 3E01305 Introduction of Other Antineoplastic into Subcutaneous Tissue, Percutaneous Approach (ICD-10-PCS; principal; 2020-11-28)
PROC: 3E033GC Introduction of Other Therapeutic Substance into Peripheral Vein, Percutaneous Approach (ICD-10-PCS; 2020-11-28)
PROC: 3E033GC Introduction of Other Therapeutic Substance into Peripheral Vein, Percutaneous Approach (ICD-10-PCS; 2020-11-28)
DX: Z51.11 Encounter for antineoplastic chemotherapy (principal); C90.00 Multiple myeloma not having achieved remission; C79.51 Secondary malignant neoplasm of bone
CPT/HCPCS: 36415; 80048; 80076; 83615; 83735; 84550; 85025; 96365; 96367; 96401; J9041

== ENCOUNTER 2020-12-05 07:36 | Day surgery (SDC) | payer OTHER, BC ==
[2020-12-05] MEDS ORDERED: POTASSIUM CHLORIDE TABS 20 MEQ TABLET.ER (FP) PO ONE (10:00)
[2020-12-05] MEDS ORDERED: DEXAMETHASONE 4 MG TABLET (FP) PO ONE (10:00)
[2020-12-05] MEDS ORDERED: amLODIPine BESYLATE 10 MG TABLET (FP) PO ONE (10:00)
[2020-12-05] MEDS ORDERED: SODIUM CHLORIDE 250 ML IV ONE (10:00)
[2020-12-05] MEDS ORDERED: BORTEZOMIB (VELCADE) 2.5 MG/ML SUB-Q INJECTION SQ ONE (10:00)
[2020-12-05] MEDS ORDERED: MAGNESIUM SULFATE IN WATER 2 GM/50 ML IVPB IVPB ONE (10:00)
[2020-12-05 14:29] LABS: BASO % 1.1 % (0-2.0); EOS % 1.8 % (0-4.5); HEMATOCRIT 28.7 % (32.4-45.2); HEMOGLOBIN 9.7 GM/dL (10.7-15.3); MCH 32.1 pg (25.7-33.7); MCHC 33.9 g/dl (32.0-36.0); MEAN CELL VOLUME 94.8 fl (80-96); MONO % 16.3 % (3.8-10.2); NEUT % 66.8 % (42.8-82.8); PLATELET COUNT 164 K/MM3 (134-434); RBC 3.02 M/mm3 (3.60-5.2); RDW 16.8 % (11.6-15.6); WHITE BLOOD COUNT 5.3 K/mm3 (4.0-10.0)
[2020-12-05 14:51] LABS: ALBUMIN 3.3 g/dl (3.4-5.0); CALCIUM 9.4 mg/dL (8.5-10.1)
[2020-12-05 14:52] LABS: BLOOD UREA NITROGEN 34.1 mg/dL (7-18); MAGNESIUM 1.9 mg/dL (1.8-2.4)
[2020-12-05 14:54] LABS: BILIRUBIN,DIRECT 0.1 mg/dL (0.0-0.2); URIC ACID 3.4 mg/dL (2.6-7.2)
[2020-12-05 14:56] LABS: BILIRUBIN,TOTAL 0.4 mg/dL (0.2-1); TOT PROT 5.7 g/dl (6.4-8.2)
[2020-12-05 18:06] VITALS: TEMP 98.4
[2020-12-05 18:21] VITALS: BP 166/64; PULSE 73
== END 2020-12-05 16:20 | disposition home or self-care (01) ==
LOC: JONCCHEMO 07:36
PROVIDERS: ATTEND Internal Medicine Hematology & Oncology
PROC: 3E01305 Introduction of Other Antineoplastic into Subcutaneous Tissue, Percutaneous Approach (ICD-10-PCS; principal; 2020-12-05)
PROC: 3E033GC Introduction of Other Therapeutic Substance into Peripheral Vein, Percutaneous Approach (ICD-10-PCS; 2020-12-05)
PROC: 3E033GC Introduction of Other Therapeutic Substance into Peripheral Vein, Percutaneous Approach (ICD-10-PCS; 2020-12-05)
DX: Z51.11 Encounter for antineoplastic chemotherapy (principal)
CPT/HCPCS: 36415; 80048; 80076; 83615; 83735; 84550; 85025; 96361; 96365; 96401; J9041

== ENCOUNTER 2020-12-12 06:51 | Day surgery (SDC) | payer OTHER, BC ==
[2020-12-12] MEDS ORDERED: SODIUM CHLORIDE 250 ML IV ONE (09:00)
[2020-12-12] MEDS ORDERED: DEXAMETHASONE 4 MG TABLET (FP) PO ONE (10:00)
[2020-12-12] MEDS ORDERED: amLODIPine BESYLATE 10 MG TABLET (FP) PO ONE (10:00)
[2020-12-12] MEDS ORDERED: MAGNESIUM SULFATE IN WATER 2 GM/50 ML IVPB IVPB ONE (10:00)
[2020-12-12] MEDS ORDERED: POTASSIUM CHLORIDE TABS 20 MEQ TABLET.ER (FP) PO ONE (10:00)
[2020-12-12] MEDS ORDERED: BORTEZOMIB (VELCADE) 2.5 MG/ML SUB-Q INJECTION SQ ONE (10:30)
[2020-12-12 14:19] LABS: BASO % 0.8 % (0-2.0); EOS % 4.6 % (0-4.5); HEMATOCRIT 29.5 % (32.4-45.2); LYMPH % 8.4 % (8-40); MCHC 33.9 g/dl (32.0-36.0); MEAN CELL VOLUME 94.5 fl (80-96); MONO % 12.1 % (3.8-10.2); NEUT % 74.1 % (42.8-82.8); PLATELET COUNT 159 K/MM3 (134-434); RBC 3.12 M/mm3 (3.60-5.2); RDW 16.9 % (11.6-15.6); WHITE BLOOD COUNT 6.3 K/mm3 (4.0-10.0)
[2020-12-12 14:43] LABS: CALCIUM 8.9 mg/dL (8.5-10.1)
[2020-12-12 14:44] LABS: ALBUMIN 3.4 g/dl (3.4-5.0); BLOOD UREA NITROGEN 24.2 mg/dL (7-18); MAGNESIUM 2.1 mg/dL (1.8-2.4)
[2020-12-12 14:46] LABS: URIC ACID 4.4 mg/dL (2.6-7.2)
[2020-12-12 14:47] LABS: BILIRUBIN,DIRECT 0.1 mg/dL (0.0-0.2); CREATININE 0.9 mg/dL (0.55-1.3)
[2020-12-12 14:48] LABS: BILIRUBIN,TOTAL 0.5 mg/dL (0.2-1)
[2020-12-12 16:28] VITALS: TEMP 98.7
[2020-12-12 16:31] VITALS: BP 173/81; PULSE 70
== END 2020-12-12 16:42 | disposition home or self-care (01) ==
LOC: JONCCHEMO 06:51
PROVIDERS: ATTEND Internal Medicine Hematology & Oncology
PROC: 3E02305 Introduction of Other Antineoplastic into Muscle, Percutaneous Approach (ICD-10-PCS; principal; 2020-12-12)
PROC: 3E033GC Introduction of Other Therapeutic Substance into Peripheral Vein, Percutaneous Approach (ICD-10-PCS; 2020-12-12)
PROC: 3E033GC Introduction of Other Therapeutic Substance into Peripheral Vein, Percutaneous Approach (ICD-10-PCS; 2020-12-12)
DX: Z51.11 Encounter for antineoplastic chemotherapy (principal); C90.00 Multiple myeloma not having achieved remission; C79.51 Secondary malignant neoplasm of bone
CPT/HCPCS: 36415; 80048; 80076; 83615; 83735; 84550; 85025; 96365; 96368; 96401; J9041

== ENCOUNTER 2020-12-19 07:51 | Day surgery (SDC) | payer OTHER, BC ==
[2020-12-19] MEDS ORDERED: SODIUM CHLORIDE 250 ML IV ONE (09:00)
[2020-12-19] MEDS ORDERED: amLODIPine BESYLATE 10 MG TABLET (FP) PO ONE (10:00)
[2020-12-19] MEDS ORDERED: DEXAMETHASONE 4 MG TABLET (FP) PO ONE (10:00)
[2020-12-19] MEDS ORDERED: BORTEZOMIB (VELCADE) 2.5 MG/ML SUB-Q INJECTION SQ ONE (10:00)
[2020-12-19] MEDS ORDERED: DENOSUMAB 120 MG/1.7 ML VIAL SQ ONE (13:00)
[2020-12-19] MEDS ORDERED: oxyCODONE HCL 5 MG TABLET PO ONE (13:15)
[2020-12-19 14:41] LABS: BASO % 0.2 % (0-2.0); EOS % 2.6 % (0-4.5); HEMATOCRIT 29.1 % (32.4-45.2); HEMOGLOBIN 9.8 GM/dL (10.7-15.3); LYMPH % 6.8 % (8-40); MCH 31.7 pg (25.7-33.7); MCHC 33.6 g/dl (32.0-36.0); MEAN CELL VOLUME 94.5 fl (80-96); MEAN PLT VOLUME 8.3 fl (7.5-11.1); MONO % 13.7 % (3.8-10.2); NEUT % 76.7 % (42.8-82.8); PLATELET COUNT 117 10^3/uL (134-434); RBC 3.07 M/mm3 (3.60-5.2); RDW 16.5 % (11.6-15.6)
[2020-12-19 15:03] LABS: ALBUMIN 3.3 g/dl (3.4-5.0)
[2020-12-19 15:04] LABS: BLOOD UREA NITROGEN 21.7 mg/dL (7-18); CALCIUM 9.2 mg/dL (8.5-10.1); MAGNESIUM 1.9 mg/dL (1.8-2.4)
[2020-12-19 15:06] LABS: URIC ACID 4.5 mg/dL (2.6-7.2)
[2020-12-19 15:07] LABS: BILIRUBIN,DIRECT 0.1 mg/dL (0.0-0.2); CREATININE 0.8 mg/dL (0.55-1.3)
[2020-12-19 15:09] LABS: BILIRUBIN,TOTAL 0.5 mg/dL (0.2-1); TOT PROT 5.6 g/dl (6.4-8.2)
[2020-12-19] MEDS ORDERED: POTASSIUM CHLORIDE TABS 20 MEQ TABLET.ER (FP) PO ONE (15:09)
[2020-12-19 15:57] VITALS: TEMP 98.3
[2020-12-19 16:12] VITALS: BP 173/78; PULSE 75
== END 2020-12-19 16:30 | disposition home or self-care (01) ==
LOC: JONCCHEMO 07:51
PROVIDERS: ATTEND Internal Medicine Hematology & Oncology
PROC: 3E01305 Introduction of Other Antineoplastic into Subcutaneous Tissue, Percutaneous Approach (ICD-10-PCS; principal; 2020-12-19)
PROC: 3E013GC Introduction of Other Therapeutic Substance into Subcutaneous Tissue, Percutaneous Approach (ICD-10-PCS; 2020-12-19)
DX: Z51.11 Encounter for antineoplastic chemotherapy (principal); C90.00 Multiple myeloma not having achieved remission; C79.51 Secondary malignant neoplasm of bone
CPT/HCPCS: 36415; 80048; 80076; 83615; 83735; 84550; 85025; 96360; 96372; 96401; J0897; J9041

== ENCOUNTER 2020-12-26 07:11 | Day surgery (SDC) | payer OTHER, BC ==
[2020-12-26] MEDS ORDERED: SODIUM CHLORIDE 250 ML IV ONE (09:00)
[2020-12-26] MEDS ORDERED: DEXAMETHASONE 4 MG TABLET (FP) PO ONE (10:00)
[2020-12-26] MEDS ORDERED: BORTEZOMIB (VELCADE) 2.5 MG/ML SUB-Q INJECTION SQ ONE (10:00)
[2020-12-26] MEDS ORDERED: MAGNESIUM SULFATE IN WATER 2 GM/50 ML IVPB IVPB ONE (10:00)
[2020-12-26] MEDS ORDERED: POTASSIUM CHLORIDE TABS 20 MEQ TABLET.ER (FP) PO ONE (10:00)
[2020-12-26] MEDS ORDERED: amLODIPine BESYLATE 10 MG TABLET (FP) PO ONE (10:00)
[2020-12-26] MEDS ORDERED: FAMOTIDINE 20 MG TABLET PO ONE (13:45)
[2020-12-26 14:47] LABS: BASO % 1.3 % (0-2.0); EOS % 2.5 % (0-4.5); HEMATOCRIT 31.7 % (32.4-45.2); HEMOGLOBIN 10.9 GM/dL (10.7-15.3); LYMPH % 10.2 % (8-40); MCH 32.2 pg (25.7-33.7); MCHC 34.2 g/dl (32.0-36.0); MEAN CELL VOLUME 94.2 fl (80-96); MEAN PLT VOLUME 8.8 fl (7.5-11.1); MONO % 14.2 % (3.8-10.2); NEUT % 71.8 % (42.8-82.8); PLATELET COUNT 118 10^3/uL (134-434); RBC 3.37 M/mm3 (3.60-5.2); RDW 16.4 % (11.6-15.6); WHITE BLOOD COUNT 6.9 K/mm3 (4.0-10.0)
[2020-12-26 15:03] LABS: CALCIUM 9.1 mg/dL (8.5-10.1); MAGNESIUM 1.9 mg/dL (1.8-2.4)
[2020-12-26 15:05] LABS: ALBUMIN 3.4 g/dl (3.4-5.0); BLOOD UREA NITROGEN 26.2 mg/dL (7-18); URIC ACID 4.9 mg/dL (2.6-7.2)
[2020-12-26 15:07] LABS: BILIRUBIN,DIRECT 0.1 mg/dL (0.0-0.2)
[2020-12-26 15:09] LABS: BILIRUBIN,TOTAL 0.4 mg/dL (0.2-1); TOT PROT 5.8 g/dl (6.4-8.2)
[2020-12-26 17:42] VITALS: BP 145/79; PULSE 74; TEMP 98.5
[2020-12-28 17:10] LABS: FREE KAPPA,SERUM 19.6 mg/L (3.3-19.4)
[2020-12-29 06:05] LABS: FREE KAP CHN UR 97.8 mg/L (0.63-113.79); KAPPA LAMBDA RATIO URIN 6.3 (1.03-31.76)
== END 2020-12-26 16:15 | disposition home or self-care (01) ==
LOC: JONCCHEMO 07:11
PROVIDERS: ATTEND Internal Medicine Hematology & Oncology
PROC: 3E01305 Introduction of Other Antineoplastic into Subcutaneous Tissue, Percutaneous Approach (ICD-10-PCS; principal; 2020-12-26)
PROC: 3E033GC Introduction of Other Therapeutic Substance into Peripheral Vein, Percutaneous Approach (ICD-10-PCS; 2020-12-26)
DX: Z51.11 Encounter for antineoplastic chemotherapy (principal); C90.00 Multiple myeloma not having achieved remission; C79.51 Secondary malignant neoplasm of bone
CPT/HCPCS: 36415; 80048; 80076; 82784; 83615; 83735; 83883; 84155; 84165; 84550; 85025; 86335; 96365; 96401; J9041

== ENCOUNTER 2021-01-02 07:00 | Day surgery (SDC) | payer OTHER, BC ==
[2021-01-02] MEDS ORDERED: MAGNESIUM SULFATE IN WATER 2 GM/50 ML IVPB IVPB ONE (09:00)
[2021-01-02] MEDS ORDERED: SODIUM CHLORIDE 250 ML IV ONE (09:00)
[2021-01-02] MEDS ORDERED: DEXAMETHASONE 4 MG TABLET (FP) PO ONE (09:30)
[2021-01-02] MEDS ORDERED: POTASSIUM CHLORIDE TABS 20 MEQ TABLET.ER (FP) PO ONE (09:30)
[2021-01-02] MEDS ORDERED: amLODIPine BESYLATE 10 MG TABLET (FP) PO ONE (09:30)
[2021-01-02] MEDS ORDERED: BORTEZOMIB (VELCADE) 2.5 MG/ML SUB-Q INJECTION SQ ONE (10:00)
[2021-01-02 14:47] LABS: BASO % 0.8 % (0-2.0); EOS % 2.3 % (0-4.5); HEMATOCRIT 29.8 % (32.4-45.2); HEMOGLOBIN 10.1 GM/dL (10.7-15.3); LYMPH % 11.1 % (8-40); MCH 32.1 pg (25.7-33.7); MEAN CELL VOLUME 94.5 fl (80-96); MEAN PLT VOLUME 7.9 fl (7.5-11.1); MONO % 14.9 % (3.8-10.2); NEUT % 70.9 % (42.8-82.8); PLATELET COUNT 125 10^3/uL (134-434); RBC 3.15 M/mm3 (3.60-5.2); RDW 16.3 % (11.6-15.6); WHITE BLOOD COUNT 4.4 K/mm3 (4.0-10.0)
[2021-01-02 15:04] LABS: CHLORIDE 112 mmol/L (98-107); SODIUM 144 mmol/L (136-145)
[2021-01-02 15:07] LABS: ALBUMIN 2.8 g/dl (3.4-5.0); BLOOD UREA NITROGEN 20.4 mg/dL (7-18); CO2 25 mmol/L (21-32); GLUCOSE,RANDOM 177 mg/dL (74-106); MAGNESIUM 1.9 mg/dL (1.8-2.4)
[2021-01-02 15:09] LABS: BILIRUBIN,DIRECT < 0.1 mg/dL (0.0-0.2); URIC ACID 3.3 mg/dL (2.6-7.2)
[2021-01-02 15:10] LABS: CREATININE 0.6 mg/dL (0.55-1.3); SGOT/AST 10 U/L (15-37); SGPT/ALT 17 U/L (13-61)
[2021-01-02 15:11] LABS: BILIRUBIN,TOTAL 0.3 mg/dL (0.2-1)
[2021-01-02 15:12] LABS: ALK PHOS 61 U/L (45-117)
[2021-01-02 15:14] LABS: LDH 155 U/L (84-246)
[2021-01-02 15:19] LABS: ANION GAP 7 MMOL/L (8-16); CALCIUM 7.2 mg/dL (8.5-10.1)
[2021-01-02 17:18] VITALS: TEMP 97.9
[2021-01-02 17:19] VITALS: BP 178/70; PULSE 80
== END 2021-01-02 17:22 | disposition home or self-care (01) ==
LOC: JONCCHEMO 07:00
PROVIDERS: ATTEND Internal Medicine Hematology & Oncology
PROC: 3E01305 Introduction of Other Antineoplastic into Subcutaneous Tissue, Percutaneous Approach (ICD-10-PCS; principal; 2021-01-02)
PROC: 3E033GC Introduction of Other Therapeutic Substance into Peripheral Vein, Percutaneous Approach (ICD-10-PCS; 2021-01-02)
PROC: 3E043GC Introduction of Other Therapeutic Substance into Central Vein, Percutaneous Approach (ICD-10-PCS; 2021-01-02)
DX: Z51.11 Encounter for antineoplastic chemotherapy (principal); C90.00 Multiple myeloma not having achieved remission; C79.51 Secondary malignant neoplasm of bone
CPT/HCPCS: 36415; 80048; 80076; 83615; 83735; 84550; 85025; 96361; 96365; 96401; J9041

== ENCOUNTER 2021-01-09 07:08 | Day surgery (SDC) | payer OTHER, BC ==
[2021-01-09] MEDS ORDERED: SODIUM CHLORIDE 250 ML IV ONE (09:00)
[2021-01-09] MEDS ORDERED: amLODIPine BESYLATE 10 MG TABLET (FP) PO ONE (10:00)
[2021-01-09] MEDS ORDERED: DEXAMETHASONE 4 MG TABLET (FP) PO ONE (10:00)
[2021-01-09] MEDS ORDERED: MAGNESIUM SULFATE IN WATER 2 GM/50 ML IVPB IVPB ONE (10:00)
[2021-01-09] MEDS ORDERED: POTASSIUM CHLORIDE TABS 20 MEQ TABLET.ER (FP) PO ONE ×2 (10:00→15:05)
[2021-01-09] MEDS ORDERED: BORTEZOMIB (VELCADE) 2.5 MG/ML SUB-Q INJECTION SQ ONE (10:30)
[2021-01-09 14:30] LABS: BASO % 1.5 % (0-2.0); EOS % 1.4 % (0-4.5); HEMATOCRIT 32.4 % (32.4-45.2); HEMOGLOBIN 10.9 GM/dL (10.7-15.3); LYMPH % 12.2 % (8-40); MCH 31.9 pg (25.7-33.7); MCHC 33.8 g/dl (32.0-36.0); MEAN CELL VOLUME 94.3 fl (80-96); MEAN PLT VOLUME 7.4 fl (7.5-11.1); MONO % 17.4 % (3.8-10.2); NEUT % 67.5 % (42.8-82.8); PLATELET COUNT 151 10^3/uL (134-434); RBC 3.43 M/mm3 (3.60-5.2)
[2021-01-09 14:46] LABS: CHLORIDE 100 mmol/L (98-107); SODIUM 139 mmol/L (136-145)
[2021-01-09 14:48] LABS: BLOOD UREA NITROGEN 26.4 mg/dL (7-18); CO2 30 mmol/L (21-32); GLUCOSE,RANDOM 175 mg/dL (74-106); MAGNESIUM 1.9 mg/dL (1.8-2.4)
[2021-01-09 14:50] LABS: URIC ACID 4.9 mg/dL (2.6-7.2)
[2021-01-09 14:51] LABS: BILIRUBIN,DIRECT 0.1 mg/dL (0.0-0.2); SGOT/AST 9 U/L (15-37); SGPT/ALT 18 U/L (13-61)
[2021-01-09 14:53] LABS: BILIRUBIN,TOTAL 0.3 mg/dL (0.2-1)
[2021-01-09 14:54] LABS: ALK PHOS 72 U/L (45-117)
[2021-01-09 14:55] LABS: LDH 180 U/L (84-246)
[2021-01-09 14:56] LABS: ALBUMIN 3.5 g/dl (3.4-5.0); ANION GAP 8 MMOL/L (8-16); CALCIUM 9.2 mg/dL (8.5-10.1)
[2021-01-09 17:31] VITALS: TEMP 98.7
[2021-01-09 17:32] VITALS: BP 143/86; PULSE 75
== END 2021-01-09 16:40 | disposition home or self-care (01) ==
LOC: JONCCHEMO 07:08
PROVIDERS: ATTEND Internal Medicine Hematology & Oncology
PROC: 3E01305 Introduction of Other Antineoplastic into Subcutaneous Tissue, Percutaneous Approach (ICD-10-PCS; principal; 2021-01-09)
PROC: 3E033GC Introduction of Other Therapeutic Substance into Peripheral Vein, Percutaneous Approach (ICD-10-PCS; 2021-01-09)
DX: Z51.11 Encounter for antineoplastic chemotherapy (principal); C90.00 Multiple myeloma not having achieved remission; C79.51 Secondary malignant neoplasm of bone
CPT/HCPCS: 36415; 80048; 80076; 83615; 83735; 84550; 85025; 96365; 96401; J9041

== ENCOUNTER 2021-01-16 05:17 | Day surgery (SDC) | payer OTHER, BC ==
[2021-01-16] MEDS ORDERED: SODIUM CHLORIDE 250 ML IV ONE (09:00)
[2021-01-16] MEDS ORDERED: DEXAMETHASONE 4 MG TABLET (FP) PO ONE (10:00)
[2021-01-16] MEDS ORDERED: amLODIPine BESYLATE 10 MG TABLET (FP) PO ONE (10:00)
[2021-01-16] MEDS ORDERED: DENOSUMAB 120 MG/1.7 ML VIAL SQ ONE (10:30)
[2021-01-16] MEDS ORDERED: BORTEZOMIB (VELCADE) 2.5 MG/ML SUB-Q INJECTION SQ ONE (10:30)
[2021-01-16 14:38] LABS: BASO % 0.9 % (0-2.0); EOS % 1.3 % (0-4.5); HEMATOCRIT 31.5 % (32.4-45.2); HEMOGLOBIN 10.7 GM/dL (10.7-15.3); LYMPH % 11.4 % (8-40); MCH 31.9 pg (25.7-33.7); MCHC 34.1 g/dl (32.0-36.0); MEAN CELL VOLUME 93.7 fl (80-96); MEAN PLT VOLUME 8.1 fl (7.5-11.1); MONO % 12.9 % (3.8-10.2); NEUT % 73.5 % (42.8-82.8); PLATELET COUNT 175 10^3/uL (134-434); RBC 3.36 M/mm3 (3.60-5.2); RDW 15.7 % (11.6-15.6); WHITE BLOOD COUNT 5.9 K/mm3 (4.0-10.0)
[2021-01-16 15:09] LABS: CALCIUM 9.1 mg/dL (8.5-10.1)
[2021-01-16 15:10] LABS: ALBUMIN 3.4 g/dl (3.4-5.0); BLOOD UREA NITROGEN 18.9 mg/dL (7-18)
[2021-01-16 15:12] LABS: BILIRUBIN,DIRECT 0.1 mg/dL (0.0-0.2)
[2021-01-16 15:13] LABS: CREATININE 1.1 mg/dL (0.55-1.3)
[2021-01-16 15:14] LABS: BILIRUBIN,TOTAL 0.4 mg/dL (0.2-1)
[2021-01-16 15:15] LABS: TOT PROT 5.8 g/dl (6.4-8.2)
[2021-01-16] MEDS ORDERED: POTASSIUM CHLORIDE TABS 20 MEQ TABLET.ER (FP) PO ONE ×2 (15:15→16:15)
[2021-01-16 19:01] VITALS: TEMP 98
[2021-01-16 19:07] VITALS: BP 167/69; PULSE 78
== END 2021-01-16 16:45 | disposition home or self-care (01) ==
LOC: JONCNONCHE 05:17
PROVIDERS: ATTEND Internal Medicine Hematology & Oncology
PROC: 3E0337Z Introduction of Electrolytic and Water Balance Substance into Peripheral Vein, Percutaneous Approach (ICD-10-PCS; principal; 2021-01-16)
PROC: 3E01305 Introduction of Other Antineoplastic into Subcutaneous Tissue, Percutaneous Approach (ICD-10-PCS; 2021-01-16)
DX: Z51.11 Encounter for antineoplastic chemotherapy (principal); C90.00 Multiple myeloma not having achieved remission; C79.51 Secondary malignant neoplasm of bone
CPT/HCPCS: 36415; 80048; 80076; 83615; 83735; 85025; 96360; 96372; 96401; J0897; J9041

== ENCOUNTER 2021-01-30 07:11 | Day surgery (SDC) | payer OTHER, BC ==
[2021-01-30] MEDS ORDERED: amLODIPine BESYLATE 10 MG TABLET (FP) PO ONE (10:00)
[2021-01-30] MEDS ORDERED: SODIUM CHLORIDE 250 ML IV ONE (10:00)
[2021-01-30] MEDS ORDERED: DEXAMETHASONE 4 MG TABLET (FP) PO ONE (10:00)
[2021-01-30] MEDS ORDERED: POTASSIUM CHLORIDE TABS 20 MEQ TABLET.ER (FP) PO ONE (10:00)
[2021-01-30] MEDS ORDERED: MAGNESIUM SULFATE IN WATER 2 GM/50 ML IVPB IVPB ONE (10:00)
[2021-01-30] MEDS ORDERED: BORTEZOMIB (VELCADE) 2.5 MG/ML SUB-Q INJECTION SQ ONE (10:30)
[2021-01-30 14:54] LABS: EOS % 1.2 % (0-4.5); HEMOGLOBIN 10.2 GM/dL (10.7-15.3); LYMPH % 10.8 % (8-40); MCHC 33.9 g/dl (32.0-36.0); MEAN CELL VOLUME 94.4 fl (80-96); MEAN PLT VOLUME 7.8 fl (7.5-11.1); MONO % 11.3 % (3.8-10.2); NEUT % 75.7 % (42.8-82.8); PLATELET COUNT 196 10^3/uL (134-434); RBC 3.18 M/mm3 (3.60-5.2); RDW 15.4 % (11.6-15.6); WHITE BLOOD COUNT 6.3 K/mm3 (4.0-10.0)
[2021-01-30 15:16] LABS: CHLORIDE 104 mmol/L (98-107); SODIUM 138 mmol/L (136-145)
[2021-01-30 15:18] LABS: ALBUMIN 3.1 g/dl (3.4-5.0); ANION GAP 6 MMOL/L (8-16); BLOOD UREA NITROGEN 24.7 mg/dL (7-18); CALCIUM 8.5 mg/dL (8.5-10.1); CO2 28 mmol/L (21-32); GLUCOSE,RANDOM 222 mg/dL (74-106); MAGNESIUM 1.9 mg/dL (1.8-2.4)
[2021-01-30 15:21] LABS: BILIRUBIN,DIRECT < 0.1 mg/dL (0.0-0.2); SGOT/AST 48 U/L (15-37); SGPT/ALT 22 U/L (13-61); URIC ACID 4.7 mg/dL (2.6-7.2)
[2021-01-30 15:23] LABS: BILIRUBIN,TOTAL 0.3 mg/dL (0.2-1); TOT PROT 6.2 g/dl (6.4-8.2)
[2021-01-30 15:24] LABS: ALK PHOS 66 U/L (45-117)
[2021-01-30 15:25] LABS: LDH 693 U/L (84-246)
[2021-01-30 17:08] LABS: CHLORIDE 104 mmol/L (98-107); SODIUM 143 mmol/L (136-145)
[2021-01-30 17:10] LABS: ALBUMIN 3.5 g/dl (3.4-5.0); CALCIUM 8.8 mg/dL (8.5-10.1); CO2 31 mmol/L (21-32); GLUCOSE,RANDOM 192 mg/dL (74-106)
[2021-01-30 17:11] LABS: BLOOD UREA NITROGEN 23.4 mg/dL (7-18)
[2021-01-30 17:14] LABS: SGOT/AST 9 U/L (15-37); SGPT/ALT 18 U/L (13-61)
[2021-01-30 17:15] LABS: BILIRUBIN,TOTAL 0.2 mg/dL (0.2-1); TOT PROT 6.2 g/dl (6.4-8.2)
[2021-01-30 17:16] LABS: ALK PHOS 70 U/L (45-117)
[2021-01-30 17:18] LABS: LDH 182 U/L (84-246)
[2021-01-30 17:24] LABS: ANION GAP 8 MMOL/L (8-16)
[2021-01-30 18:28] VITALS: PULSE 71; TEMP 97.9
[2021-01-30 18:29] VITALS: BP 157/99
== END 2021-01-30 18:00 | disposition home or self-care (01) ==
LOC: JONCCHEMO 07:11
PROVIDERS: ATTEND Internal Medicine Hematology & Oncology
PROC: 3E01305 Introduction of Other Antineoplastic into Subcutaneous Tissue, Percutaneous Approach (ICD-10-PCS; principal; 2021-01-30)
PROC: 3E033GC Introduction of Other Therapeutic Substance into Peripheral Vein, Percutaneous Approach (ICD-10-PCS; 2021-01-30)
DX: Z51.11 Encounter for antineoplastic chemotherapy (principal); C90.00 Multiple myeloma not having achieved remission; C79.51 Secondary malignant neoplasm of bone
CPT/HCPCS: 36415; 80048; 80053; 80076; 82784; 83615; 83735; 83883; 84550; 85025; 86335; 96365; 96401; J9041

== ENCOUNTER 2021-02-06 08:40 | Day surgery (SDC) | payer OTHER, BC ==
[2021-02-06] MEDS ORDERED: SODIUM CHLORIDE 250 ML IV ONE (09:00)
[2021-02-06] MEDS ORDERED: BORTEZOMIB (VELCADE) 2.5 MG/ML SUB-Q INJECTION SQ ONE (10:00)
[2021-02-06] MEDS ORDERED: DEXAMETHASONE 4 MG TABLET (FP) PO ONE (10:00)
[2021-02-06] MEDS ORDERED: amLODIPine BESYLATE 10 MG TABLET (FP) PO ONE (10:00)
[2021-02-06] MEDS ORDERED: MAGNESIUM SULFATE IN WATER 2 GM/50 ML IVPB IVPB ONE (10:00)
[2021-02-06] MEDS ORDERED: POTASSIUM CHLORIDE TABS 20 MEQ TABLET.ER (FP) PO ONE (10:00)
[2021-02-06 14:08] LABS: BASO % 0.5 % (0-2.0); EOS % 0.6 % (0-4.5); HEMATOCRIT 31.1 % (32.4-45.2); HEMOGLOBIN 10.8 GM/dL (10.7-15.3); LYMPH % 11.8 % (8-40); MCHC 34.7 g/dl (32.0-36.0); MEAN CELL VOLUME 94.9 fl (80-96); MEAN PLT VOLUME 7.8 fl (7.5-11.1); MONO % 11.2 % (3.8-10.2); NEUT % 75.9 % (42.8-82.8); PLATELET COUNT 181 10^3/uL (134-434); RBC 3.27 M/mm3 (3.60-5.2); RDW 15.3 % (11.6-15.6); WHITE BLOOD COUNT 6.3 K/mm3 (4.0-10.0)
[2021-02-06 14:25] LABS: CHLORIDE 102 mmol/L (98-107); SODIUM 139 mmol/L (136-145)
[2021-02-06 14:29] LABS: ANION GAP 7 MMOL/L (8-16); BLOOD UREA NITROGEN 21.1 mg/dL (7-18); CALCIUM 8.7 mg/dL (8.5-10.1); CO2 29 mmol/L (21-32); MAGNESIUM 1.6 mg/dL (1.8-2.4)
[2021-02-06 14:32] LABS: CREATININE 1.2 mg/dL (0.55-1.3); URIC ACID 5.4 mg/dL (2.6-7.2)
[2021-02-06 14:33] LABS: ALBUMIN 3.1 g/dl (3.4-5.0)
[2021-02-06 14:34] LABS: GLUCOSE,RANDOM 416 mg/dL (74-106); LDH 159 U/L (84-246)
[2021-02-06 14:35] LABS: BILIRUBIN,DIRECT 0.1 mg/dL (0.0-0.2)
[2021-02-06 14:37] LABS: BILIRUBIN,TOTAL 0.7 mg/dL (0.2-1); TOT PROT 5.6 g/dl (6.4-8.2)
[2021-02-06] MEDS ORDERED: INSULIN (NOVOLOG) ASPART 100 UNITS/ML 10ML VIAL SQ ONE (15:00)
[2021-02-06 17:04] VITALS: TEMP 98.1
[2021-02-06 17:07] VITALS: BP 159/90; PULSE 85
== END 2021-02-06 16:50 | disposition home or self-care (01) ==
LOC: JONCCHEMO 08:40
PROVIDERS: ATTEND Internal Medicine Hematology & Oncology
PROC: 3E01305 Introduction of Other Antineoplastic into Subcutaneous Tissue, Percutaneous Approach (ICD-10-PCS; principal; 2021-02-06)
PROC: 3E033GC Introduction of Other Therapeutic Substance into Peripheral Vein, Percutaneous Approach (ICD-10-PCS; 2021-02-06)
DX: Z51.11 Encounter for antineoplastic chemotherapy (principal); C90.00 Multiple myeloma not having achieved remission; C79.51 Secondary malignant neoplasm of bone
CPT/HCPCS: 36415; 80048; 80076; 82962; 83615; 83735; 84550; 85025; 96365; 96401; J9041

== ENCOUNTER 2021-02-20 06:50 | Day surgery (SDC) | payer OTHER, BC ==
[~2021-02-20 06:50] MED LIST changes: +DENOSUMAB 120 MG/1.7 ML VIAL SQ ONE
[2021-02-20] MEDS ORDERED: SODIUM CHLORIDE 250 ML IV ONE (09:00)
[2021-02-20] MEDS ORDERED: POTASSIUM CHLORIDE TABS 20 MEQ TABLET.ER (FP) PO ONE (10:00)
[2021-02-20] MEDS ORDERED: BORTEZOMIB (VELCADE) 2.5 MG/ML SUB-Q INJECTION SQ ONE (10:00)
[2021-02-20] MEDS ORDERED: amLODIPine BESYLATE 10 MG TABLET (FP) PO ONE (10:00)
[2021-02-20] MEDS ORDERED: DEXAMETHASONE 4 MG TABLET (FP) PO ONE (10:00)
[2021-02-20] MEDS ORDERED: MAGNESIUM SULFATE IN WATER 2 GM/50 ML IVPB IVPB ONE (10:00)
[2021-02-20] MEDS ORDERED: DENOSUMAB 120 MG/1.7 ML VIAL SQ ONE (10:15)
[2021-02-20 14:44] LABS: BASO % 1.5 % (0-2.0); EOS % 0.4 % (0-4.5); HEMATOCRIT 30.9 % (32.4-45.2); HEMOGLOBIN 10.6 GM/dL (10.7-15.3); LYMPH % 9.6 % (8-40); MCH 32.2 pg (25.7-33.7); MCHC 34.4 g/dl (32.0-36.0); MEAN CELL VOLUME 93.6 fl (80-96); MEAN PLT VOLUME 7.6 fl (7.5-11.1); MONO % 9.5 % (3.8-10.2); PLATELET COUNT 201 10^3/uL (134-434); RDW 15.2 % (11.6-15.6); WHITE BLOOD COUNT 8.1 K/mm3 (4.0-10.0)
[2021-02-20 15:11] LABS: ALBUMIN 3.4 g/dl (3.4-5.0); CALCIUM 9.2 mg/dL (8.5-10.1)
[2021-02-20 15:12] LABS: MAGNESIUM 1.8 mg/dL (1.8-2.4)
[2021-02-20 15:14] LABS: URIC ACID 3.9 mg/dL (2.6-7.2)
[2021-02-20 15:15] LABS: CREATININE 1.1 mg/dL (0.55-1.3)
[2021-02-20 15:16] LABS: BILIRUBIN,TOTAL 0.4 mg/dL (0.2-1); TOT PROT 6.1 g/dl (6.4-8.2)
[2021-02-20 15:21] LABS: BILIRUBIN,DIRECT 0.1 mg/dL (0.0-0.2)
[2021-02-20 15:26] LABS: BLOOD UREA NITROGEN 27.5 mg/dL (7-18)
[2021-02-20 17:24] VITALS: BP 185/94; PULSE 100; TEMP 98.6
[2021-02-20 18:09] LABS: CALCIUM 8.9 mg/dL (8.5-10.1)
[2021-02-20 18:10] LABS: ALBUMIN 3.1 g/dl (3.4-5.0); BLOOD UREA NITROGEN 26.9 mg/dL (7-18)
[2021-02-20 18:14] LABS: BILIRUBIN,TOTAL 0.3 mg/dL (0.2-1)
[2021-02-20 18:15] LABS: TOT PROT 5.6 g/dl (6.4-8.2)
== END 2021-02-20 17:00 | disposition home or self-care (01) ==
LOC: JONCCHEMO 06:50
PROVIDERS: ATTEND Internal Medicine Hematology & Oncology
PROC: 3E013GC Introduction of Other Therapeutic Substance into Subcutaneous Tissue, Percutaneous Approach (ICD-10-PCS; principal; 2021-02-20)
PROC: 3E033GC Introduction of Other Therapeutic Substance into Peripheral Vein, Percutaneous Approach (ICD-10-PCS; 2021-02-20)
DX: Z51.11 Encounter for antineoplastic chemotherapy (principal); C90.00 Multiple myeloma not having achieved remission
CPT/HCPCS: 36415; 80048; 80053; 80076; 83615; 83735; 84550; 85025; 96365; 96372; 96373; 96401; J0897; J9041

== ENCOUNTER 2021-02-27 06:59 | Day surgery (SDC) | payer OTHER, BC ==
[2021-02-27] MEDS ORDERED: SODIUM CHLORIDE 250 ML IV ONE (09:00)
[2021-02-27] MEDS ORDERED: POTASSIUM CHLORIDE TABS 20 MEQ TABLET.ER (FP) PO ONE (09:30)
[2021-02-27] MEDS ORDERED: BORTEZOMIB (VELCADE) 2.5 MG/ML SUB-Q INJECTION SQ ONE (10:00)
[2021-02-27] MEDS ORDERED: amLODIPine BESYLATE 10 MG TABLET (FP) PO ONE (10:00)
[2021-02-27] MEDS ORDERED: MAGNESIUM SULFATE IN WATER 2 GM/50 ML IVPB IVPB ONE (10:00)
[2021-02-27] MEDS ORDERED: DEXAMETHASONE 4 MG TABLET (FP) PO ONE (10:00)
[2021-02-27 14:52] LABS: BASO % 0.6 % (0-2.0); EOS % 0.9 % (0-4.5); HEMATOCRIT 30.9 % (32.4-45.2); HEMOGLOBIN 10.6 GM/dL (10.7-15.3); LYMPH % 11.6 % (8-40); MCH 32.2 pg (25.7-33.7); MCHC 34.2 g/dl (32.0-36.0); MEAN CELL VOLUME 94.1 fl (80-96); MEAN PLT VOLUME 7.5 fl (7.5-11.1); MONO % 13.4 % (3.8-10.2); NEUT % 73.5 % (42.8-82.8); PLATELET COUNT 197 10^3/uL (134-434); RBC 3.28 M/mm3 (3.60-5.2); WHITE BLOOD COUNT 6.5 K/mm3 (4.0-10.0)
[2021-02-27 15:14] LABS: CALCIUM 9.5 mg/dL (8.5-10.1)
[2021-02-27 15:15] LABS: ALBUMIN 3.3 g/dl (3.4-5.0); BLOOD UREA NITROGEN 21.8 mg/dL (7-18)
[2021-02-27 15:17] LABS: BILIRUBIN,DIRECT 0.1 mg/dL (0.0-0.2); URIC ACID 3.3 mg/dL (2.6-7.2)
[2021-02-27 15:19] LABS: BILIRUBIN,TOTAL 0.3 mg/dL (0.2-1); TOT PROT 5.9 g/dl (6.4-8.2)
[2021-02-27 17:22] VITALS: BP 184/80; PULSE 84; TEMP 98
[2021-03-01 17:07] LABS: FREE KAPPA,SERUM 22.7 mg/L (3.3-19.4)
== END 2021-02-27 16:30 | disposition home or self-care (01) ==
LOC: JONCCHEMO 06:59
PROVIDERS: ATTEND Internal Medicine Hematology & Oncology
PROC: 3E01305 Introduction of Other Antineoplastic into Subcutaneous Tissue, Percutaneous Approach (ICD-10-PCS; principal; 2021-02-27)
PROC: 3E033GC Introduction of Other Therapeutic Substance into Peripheral Vein, Percutaneous Approach (ICD-10-PCS; 2021-02-27)
DX: Z51.11 Encounter for antineoplastic chemotherapy (principal); C90.00 Multiple myeloma not having achieved remission
CPT/HCPCS: 36415; 80048; 80076; 82784; 83615; 83735; 83883; 84155; 84165; 84550; 85025; 96365; 96401; J9041

== ENCOUNTER 2021-03-13 08:02 | Day surgery (SDC) | payer OTHER, BC ==
[2021-03-13] MEDS ORDERED: SODIUM CHLORIDE 250 ML IV ONE (09:00)
[2021-03-13] MEDS ORDERED: POTASSIUM CHLORIDE TABS 20 MEQ TABLET.ER (FP) PO ONE (10:00)
[2021-03-13] MEDS ORDERED: MAGNESIUM SULFATE IN WATER 2 GM/50 ML IVPB IVPB ONE (10:00)
[2021-03-13] MEDS ORDERED: amLODIPine BESYLATE 10 MG TABLET (FP) PO ONE (10:00)
[2021-03-13] MEDS ORDERED: DEXAMETHASONE 4 MG TABLET (FP) PO ONE (10:00)
[2021-03-13] MEDS ORDERED: BORTEZOMIB (VELCADE) 2.5 MG/ML SUB-Q INJECTION SQ ONE (11:00)
[2021-03-13 14:53] LABS: BASO % 0.8 % (0-2.0); EOS % 0.5 % (0-4.5); HEMATOCRIT 30.9 % (32.4-45.2); HEMOGLOBIN 10.6 GM/dL (10.7-15.3); LYMPH % 7.5 % (8-40); MCH 32.4 pg (25.7-33.7); MCHC 34.4 g/dl (32.0-36.0); MEAN CELL VOLUME 94.2 fl (80-96); MEAN PLT VOLUME 7.3 fl (7.5-11.1); MONO % 10.8 % (3.8-10.2); NEUT % 80.4 % (42.8-82.8); PLATELET COUNT 214 10^3/uL (134-434); RBC 3.28 M/mm3 (3.60-5.2); RDW 14.7 % (11.6-15.6); WHITE BLOOD COUNT 9.2 K/mm3 (4.0-10.0)
[2021-03-13 15:15] LABS: CALCIUM 8.9 mg/dL (8.5-10.1)
[2021-03-13 15:16] LABS: ALBUMIN 3.4 g/dl (3.4-5.0); MAGNESIUM 1.9 mg/dL (1.8-2.4)
[2021-03-13 15:18] LABS: BILIRUBIN,DIRECT 0.1 mg/dL (0.0-0.2); URIC ACID 4.2 mg/dL (2.6-7.2)
[2021-03-13 15:20] LABS: BILIRUBIN,TOTAL 0.3 mg/dL (0.2-1)
[2021-03-13 17:13] VITALS: TEMP 98
[2021-03-13 17:18] VITALS: BP 179/78; PULSE 74
== END 2021-03-13 16:40 | disposition home or self-care (01) ==
LOC: JONCCHEMO 08:02
PROVIDERS: ATTEND Internal Medicine Hematology & Oncology
PROC: 3E01305 Introduction of Other Antineoplastic into Subcutaneous Tissue, Percutaneous Approach (ICD-10-PCS; principal; 2021-03-13)
PROC: 3E033GC Introduction of Other Therapeutic Substance into Peripheral Vein, Percutaneous Approach (ICD-10-PCS; 2021-03-13)
PROC: 3E0337Z Introduction of Electrolytic and Water Balance Substance into Peripheral Vein, Percutaneous Approach (ICD-10-PCS; 2021-03-13)
DX: Z51.11 Encounter for antineoplastic chemotherapy (principal); C90.00 Multiple myeloma not having achieved remission
CPT/HCPCS: 36415; 80048; 80076; 83735; 84550; 85025; 96361; 96365; 96401; J9041

== ENCOUNTER 2021-03-20 07:15 | Day surgery (SDC) | payer OTHER, BC ==
[2021-03-20] MEDS ORDERED: SODIUM CHLORIDE 250 ML IV ONE (09:00)
[2021-03-20] MEDS ORDERED: BORTEZOMIB (VELCADE) 2.5 MG/ML SUB-Q INJECTION SQ ONE (10:00)
[2021-03-20] MEDS ORDERED: POTASSIUM CHLORIDE TABS 20 MEQ TABLET.ER (FP) PO ONE (10:00)
[2021-03-20] MEDS ORDERED: DEXAMETHASONE 4 MG TABLET (FP) PO ONE (10:00)
[2021-03-20] MEDS ORDERED: MAGNESIUM SULFATE IN WATER 2 GM/50 ML IVPB IVPB ONE (10:00)
[2021-03-20] MEDS ORDERED: amLODIPine BESYLATE 10 MG TABLET (FP) PO ONE (10:00)
[2021-03-20] MEDS ORDERED: DENOSUMAB 120 MG/1.7 ML VIAL SQ ONE (10:30)
[2021-03-20 14:24] LABS: BASO % 0.2 % (0-2.0); EOS % 0.5 % (0-4.5); HEMATOCRIT 30.7 % (32.4-45.2); HEMOGLOBIN 10.5 GM/dL (10.7-15.3); LYMPH % 10.3 % (8-40); MCH 32.5 pg (25.7-33.7); MCHC 34.4 g/dl (32.0-36.0); MEAN CELL VOLUME 94.5 fl (80-96); MEAN PLT VOLUME 7.8 fl (7.5-11.1); MONO % 11.5 % (3.8-10.2); NEUT % 77.5 % (42.8-82.8); PLATELET COUNT 195 10^3/uL (134-434); RBC 3.24 M/mm3 (3.60-5.2); RDW 14.2 % (11.6-15.6); WHITE BLOOD COUNT 6.7 K/mm3 (4.0-10.0)
[2021-03-20 14:45] LABS: CALCIUM 8.9 mg/dL (8.5-10.1)
[2021-03-20 14:46] LABS: ALBUMIN 3.1 g/dl (3.4-5.0); BLOOD UREA NITROGEN 29.4 mg/dL (7-18)
[2021-03-20 14:49] LABS: BILIRUBIN,DIRECT 0.1 mg/dL (0.0-0.2); URIC ACID 4.3 mg/dL (2.6-7.2)
[2021-03-20 14:50] LABS: BILIRUBIN,TOTAL 0.3 mg/dL (0.2-1); CREATININE 1.2 mg/dL (0.55-1.3); TOT PROT 5.9 g/dl (6.4-8.2)
[2021-03-20] MEDS ORDERED: INSULIN (NOVOLOG) ASPART 100 UNITS/ML 10ML VIAL SQ ONE (16:12)
[2021-03-20] MEDS ORDERED: INSULIN (NOVOLOG) ASPART 100 UNITS/ML 10ML VIAL ONE ×2 (16:15→16:26)
[2021-03-20 18:35] VITALS: BP 187/88; PULSE 82; TEMP 98.8
== END 2021-03-20 16:20 | disposition home or self-care (01) ==
LOC: JONCCHEMO 07:15
PROVIDERS: ATTEND Internal Medicine Hematology & Oncology
PROC: 3E01305 Introduction of Other Antineoplastic into Subcutaneous Tissue, Percutaneous Approach (ICD-10-PCS; principal; 2021-03-20)
PROC: 3E013GC Introduction of Other Therapeutic Substance into Subcutaneous Tissue, Percutaneous Approach (ICD-10-PCS; 2021-03-20)
PROC: 3E0337Z Introduction of Electrolytic and Water Balance Substance into Peripheral Vein, Percutaneous Approach (ICD-10-PCS; 2021-03-20)
DX: Z51.11 Encounter for antineoplastic chemotherapy (principal); C90.00 Multiple myeloma not having achieved remission
CPT/HCPCS: 36415; 80048; 80076; 82962; 83615; 83735; 84550; 85025; 96360; 96372; 96401; J0897; J9041

== ENCOUNTER 2021-03-27 07:59 | Day surgery (SDC) | payer OTHER, BC ==
[2021-03-27] MEDS ORDERED: SODIUM CHLORIDE 250 ML IV ONE (09:00)
[2021-03-27] MEDS ORDERED: POTASSIUM CHLORIDE TABS 20 MEQ TABLET.ER (FP) PO ONE (10:00)
[2021-03-27] MEDS ORDERED: DEXAMETHASONE 4 MG TABLET (FP) PO ONE (10:00)
[2021-03-27] MEDS ORDERED: amLODIPine BESYLATE 10 MG TABLET (FP) PO ONE (10:00)
[2021-03-27] MEDS ORDERED: MAGNESIUM SULFATE IN WATER 2 GM/50 ML IVPB IVPB ONE (10:00)
[2021-03-27] MEDS ORDERED: BORTEZOMIB (VELCADE) 2.5 MG/ML SUB-Q INJECTION SQ ONE (10:30)
[2021-03-27 15:07] LABS: BASO % 0.7 % (0-2.0); EOS % 0.4 % (0-4.5); HEMATOCRIT 30.6 % (32.4-45.2); HEMOGLOBIN 10.5 GM/dL (10.7-15.3); LYMPH % 7.8 % (8-40); MCH 31.9 pg (25.7-33.7); MCHC 34.3 g/dl (32.0-36.0); MEAN CELL VOLUME 93.2 fl (80-96); MEAN PLT VOLUME 7.5 fl (7.5-11.1); MONO % 9.7 % (3.8-10.2); NEUT % 81.4 % (42.8-82.8); PLATELET COUNT 199 10^3/uL (134-434); RBC 3.28 M/mm3 (3.60-5.2); RDW 14.1 % (11.6-15.6); WHITE BLOOD COUNT 9.1 K/mm3 (4.0-10.0)
[2021-03-27 15:28] LABS: CALCIUM 9.8 mg/dL (8.5-10.1)
[2021-03-27 15:29] LABS: ALBUMIN 3.3 g/dl (3.4-5.0); MAGNESIUM 1.9 mg/dL (1.8-2.4)
[2021-03-27 15:31] LABS: BILIRUBIN,DIRECT 0.1 mg/dL (0.0-0.2)
[2021-03-27 15:32] LABS: URIC ACID 4.7 mg/dL (2.6-7.2)
[2021-03-27 15:33] LABS: BILIRUBIN,TOTAL 0.4 mg/dL (0.2-1)
[2021-03-27 18:49] VITALS: BP 183/83; PULSE 79; TEMP 98.3
[2021-03-29 17:08] LABS: FREE KAPPA,SERUM 30.1 mg/L (3.3-19.4)
[2021-03-30 06:05] LABS: FREE KAP CHN UR 97.22 mg/L (0.63-113.79); KAPPA LAMBDA RATIO URIN 6.06 (1.03-31.76)
== END 2021-03-27 17:45 | disposition home or self-care (01) ==
LOC: JONCCHEMO 07:59
PROVIDERS: ATTEND Internal Medicine Hematology & Oncology
PROC: 3E01305 Introduction of Other Antineoplastic into Subcutaneous Tissue, Percutaneous Approach (ICD-10-PCS; principal; 2021-03-27)
PROC: 3E033GC Introduction of Other Therapeutic Substance into Peripheral Vein, Percutaneous Approach (ICD-10-PCS; 2021-03-27)
PROC: 3E0337Z Introduction of Electrolytic and Water Balance Substance into Peripheral Vein, Percutaneous Approach (ICD-10-PCS; 2021-03-27)
DX: Z51.11 Encounter for antineoplastic chemotherapy (principal); C90.00 Multiple myeloma not having achieved remission; I10 Essential (primary) hypertension; E11.9 Type 2 diabetes mellitus without complications; E78.5 Hyperlipidemia, unspecified
CPT/HCPCS: 36415; 80048; 80076; 82784; 83615; 83735; 83883; 84155; 84165; 84550; 85025; 86335; 96361; 96365; 96401; J9041

== ENCOUNTER 2021-04-03 08:28 | Day surgery (SDC) | payer OTHER, BC ==
[2021-04-03] MEDS ORDERED: SODIUM CHLORIDE 250 ML IV ONE (09:00)
[2021-04-03] MEDS ORDERED: MAGNESIUM SULFATE IN WATER 2 GM/50 ML IVPB IVPB ONE (10:00)
[2021-04-03] MEDS ORDERED: BORTEZOMIB (VELCADE) 2.5 MG/ML SUB-Q INJECTION SQ ONE (10:00)
[2021-04-03] MEDS ORDERED: DEXAMETHASONE 4 MG TABLET (FP) PO ONE (10:00)
[2021-04-03] MEDS ORDERED: POTASSIUM CHLORIDE TABS 20 MEQ TABLET.ER (FP) PO ONE (10:00)
[2021-04-03 14:45] LABS: BASO % 0.3 % (0-2.0); EOS % 0.4 % (0-4.5); HEMATOCRIT 33.4 % (32.4-45.2); HEMOGLOBIN 11.2 GM/dL (10.7-15.3); LYMPH % 7.3 % (8-40); MCH 32.1 pg (25.7-33.7); MCHC 33.6 g/dl (32.0-36.0); MEAN CELL VOLUME 95.4 fl (80-96); MEAN PLT VOLUME 8.4 fl (7.5-11.1); MONO % 9.3 % (3.8-10.2); NEUT % 82.7 % (42.8-82.8); PLATELET COUNT 203 10^3/uL (134-434); RDW 14.1 % (11.6-15.6); WHITE BLOOD COUNT 8.1 K/mm3 (4.0-10.0)
[2021-04-03 15:07] LABS: ALBUMIN 3.2 g/dl (3.4-5.0); BLOOD UREA NITROGEN 23.6 mg/dL (7-18)
[2021-04-03 15:09] LABS: BILIRUBIN,DIRECT 0.1 mg/dL (0.0-0.2); URIC ACID 3.8 mg/dL (2.6-7.2)
[2021-04-03 15:10] LABS: CREATININE 1.1 mg/dL (0.55-1.3)
[2021-04-03 15:11] LABS: BILIRUBIN,TOTAL 0.2 mg/dL (0.2-1); TOT PROT 6.1 g/dl (6.4-8.2)
[2021-04-03 15:21] LABS: CALCIUM 8.2 mg/dL (8.5-10.1)
[2021-04-03] MEDS ORDERED: Insulin (LOG) Aspart 100 UNITS/ML VIAL SQ ONE (15:38)
[2021-04-03] MEDS: amLODIPine BESYLATE 10 MG TABLET (FP) PO ONE ×2 (15:46→15:56)
[2021-04-03 17:42] VITALS: PULSE 81; TEMP 97.9
[2021-04-03 17:48] VITALS: BP 138/68
== END 2021-04-03 16:00 | disposition home or self-care (01) ==
LOC: JONCCHEMO 08:28
PROVIDERS: ATTEND Internal Medicine Hematology & Oncology
PROC: 3E01305 Introduction of Other Antineoplastic into Subcutaneous Tissue, Percutaneous Approach (ICD-10-PCS; principal; 2021-04-03)
PROC: 3E033GC Introduction of Other Therapeutic Substance into Peripheral Vein, Percutaneous Approach (ICD-10-PCS; 2021-04-03)
PROC: 3E033GC Introduction of Other Therapeutic Substance into Peripheral Vein, Percutaneous Approach (ICD-10-PCS; 2021-04-03)
DX: Z51.11 Encounter for antineoplastic chemotherapy (principal); C90.00 Multiple myeloma not having achieved remission
CPT/HCPCS: 36415; 80048; 80076; 82962; 83615; 83735; 84550; 85025; 96361; 96365; 96401; J9041

== ENCOUNTER 2021-04-17 07:28 | Day surgery (SDC) | payer OTHER, BC ==
[2021-04-17] MEDS ORDERED: SODIUM CHLORIDE 250 ML IV ONE (09:00)
[2021-04-17] MEDS ORDERED: MAGNESIUM SULFATE IN WATER 2 GM/50 ML IVPB IVPB ONE (09:30)
[2021-04-17] MEDS ORDERED: DEXAMETHASONE 4 MG TABLET (FP) PO ONE (10:00)
[2021-04-17] MEDS ORDERED: BORTEZOMIB (VELCADE) 2.5 MG/ML SUB-Q INJECTION SQ ONE (10:00)
[2021-04-17] MEDS ORDERED: POTASSIUM CHLORIDE TABS 20 MEQ TABLET.ER (FP) PO ONE (10:00)
[2021-04-17] MEDS ORDERED: amLODIPine BESYLATE 10 MG TABLET (FP) PO ONE (10:00)
[2021-04-17] MEDS ORDERED: DENOSUMAB 120 MG/1.7 ML VIAL SQ ONE (10:15)
[2021-04-17 14:51] LABS: BASO % 1.2 % (0-2.0); EOS % 0.8 % (0-4.5); HEMATOCRIT 30.1 % (32.4-45.2); HEMOGLOBIN 10.2 GM/dL (10.7-15.3); LYMPH % 8.7 % (8-40); MCH 31.8 pg (25.7-33.7); MEAN CELL VOLUME 93.6 fl (80-96); MEAN PLT VOLUME 7.4 fl (7.5-11.1); MONO % 9.5 % (3.8-10.2); NEUT % 79.8 % (42.8-82.8); PLATELET COUNT 199 10^3/uL (134-434); RBC 3.22 M/mm3 (3.60-5.2); RDW 13.7 % (11.6-15.6); WHITE BLOOD COUNT 7.6 K/mm3 (4.0-10.0)
[2021-04-17 15:11] LABS: CALCIUM 8.8 mg/dL (8.5-10.1); MAGNESIUM 1.7 mg/dL (1.8-2.4)
[2021-04-17 15:12] LABS: ALBUMIN 3.2 g/dl (3.4-5.0); BLOOD UREA NITROGEN 19.8 mg/dL (7-18)
[2021-04-17 15:14] LABS: CREATININE 0.9 mg/dL (0.55-1.3); URIC ACID 3.9 mg/dL (2.6-7.2)
[2021-04-17 15:15] LABS: BILIRUBIN,DIRECT 0.1 mg/dL (0.0-0.2)
[2021-04-17 15:17] LABS: BILIRUBIN,TOTAL 0.3 mg/dL (0.2-1)
[2021-04-17] MEDS ORDERED: INSULIN (NOVOLOG) ASPART 100 UNITS/ML 10ML VIAL SQ ONE (15:25)
[2021-04-17 17:43] VITALS: TEMP 98.7
[2021-04-17 17:44] VITALS: BP 174/83; PULSE 80
== END 2021-04-17 16:30 | disposition home or self-care (01) ==
LOC: JONCCHEMO 07:28
PROVIDERS: ATTEND Internal Medicine Hematology & Oncology
PROC: 3E033GC Introduction of Other Therapeutic Substance into Peripheral Vein, Percutaneous Approach (ICD-10-PCS; principal; 2021-04-17)
PROC: 3E0337Z Introduction of Electrolytic and Water Balance Substance into Peripheral Vein, Percutaneous Approach (ICD-10-PCS; 2021-04-17)
DX: Z51.11 Encounter for antineoplastic chemotherapy (principal); C90.00 Multiple myeloma not having achieved remission
CPT/HCPCS: 36415; 80048; 80076; 83615; 83735; 84550; 85025; 96365; 96401; J0897; J9041

== ENCOUNTER 2021-04-24 07:58 | Day surgery (SDC) | payer OTHER, BC ==
[2021-04-24] MEDS ORDERED: SODIUM CHLORIDE 250 ML IV ONE (09:00)
[2021-04-24] MEDS ORDERED: amLODIPine BESYLATE 10 MG TABLET (FP) PO ONE (10:00)
[2021-04-24] MEDS ORDERED: POTASSIUM CHLORIDE TABS 20 MEQ TABLET.ER (FP) PO ONE (10:00)
[2021-04-24] MEDS ORDERED: DEXAMETHASONE 4 MG TABLET (FP) PO ONE (10:00)
[2021-04-24] MEDS ORDERED: MAGNESIUM SULFATE IN WATER 2 GM/50 ML IVPB IVPB ONE (10:00)
[2021-04-24] MEDS ORDERED: BORTEZOMIB (VELCADE) 2.5 MG/ML SUB-Q INJECTION SQ ONE (10:30)
[2021-04-24] MEDS ORDERED: INSULIN (NOVOLOG) ASPART 100 UNITS/ML 10ML VIAL SQ ONE ×2 (16:02→17:32)
[2021-04-24 16:17] LABS: BASO % 1.2 % (0-2.0); EOS % 0.7 % (0-4.5); HEMATOCRIT 31.2 % (32.4-45.2); HEMOGLOBIN 10.8 GM/dL (10.7-15.3); LYMPH % 8.9 % (8-40); MCH 31.9 pg (25.7-33.7); MCHC 34.5 g/dl (32.0-36.0); MEAN CELL VOLUME 92.6 fl (80-96); MEAN PLT VOLUME 8.3 fl (7.5-11.1); MONO % 11.3 % (3.8-10.2); NEUT % 77.9 % (42.8-82.8); PLATELET COUNT 197 10^3/uL (134-434); RBC 3.37 M/mm3 (3.60-5.2); RDW 13.6 % (11.6-15.6); WHITE BLOOD COUNT 7.7 K/mm3 (4.0-10.0)
[2021-04-24 17:28] LABS: CALCIUM 8.6 mg/dL (8.5-10.1)
[2021-04-24 17:29] LABS: ALBUMIN 2.9 g/dl (3.4-5.0); MAGNESIUM 1.7 mg/dL (1.8-2.4)
[2021-04-24 17:31] LABS: BILIRUBIN,DIRECT 0.1 mg/dL (0.0-0.2); URIC ACID 3.8 mg/dL (2.6-7.2)
[2021-04-24 17:32] LABS: CREATININE 0.9 mg/dL (0.55-1.3)
[2021-04-24 17:33] LABS: BILIRUBIN,TOTAL 0.3 mg/dL (0.2-1); TOT PROT 5.8 g/dl (6.4-8.2)
[2021-04-24 18:30] VITALS: TEMP 98.8
[2021-04-24 18:54] VITALS: BP 177/84; PULSE 76
[2021-04-26 17:09] LABS: FREE KAPPA,SERUM 37.5 mg/L (3.3-19.4)
[2021-04-27 01:06] LABS: FREE KAP CHN UR 83.51 mg/L (0.63-113.79); KAPPA LAMBDA RATIO URIN 6.11 (1.03-31.76)
== END 2021-04-24 18:10 | disposition home or self-care (01) ==
LOC: JONCCHEMO 07:58
PROVIDERS: ATTEND Internal Medicine Hematology & Oncology
PROC: 3E01305 Introduction of Other Antineoplastic into Subcutaneous Tissue, Percutaneous Approach (ICD-10-PCS; principal; 2021-04-24)
PROC: 3E033GC Introduction of Other Therapeutic Substance into Peripheral Vein, Percutaneous Approach (ICD-10-PCS; 2021-04-24)
PROC: 3E013GC Introduction of Other Therapeutic Substance into Subcutaneous Tissue, Percutaneous Approach (ICD-10-PCS; 2021-04-24)
DX: Z51.11 Encounter for antineoplastic chemotherapy (principal); C90.00 Multiple myeloma not having achieved remission; E11.9 Type 2 diabetes mellitus without complications
CPT/HCPCS: 36415; 80048; 80076; 82784; 83615; 83735; 83883; 84155; 84165; 84550; 85025; 86335; 96365; 96372; 96401; J9041

== ENCOUNTER 2021-05-01 07:47 | Day surgery (SDC) | payer OTHER, BC ==
[~2021-05-01 07:47] MED LIST changes: -DENOSUMAB 120 MG/1.7 ML VIAL SQ ONE; -DEXAMETHASONE 4 MG TABLET (FP) PO ONE; -MAGNESIUM SULFATE IN WATER 2 GM/50 ML IVPB IVPB ONE; -POTASSIUM CHLORIDE TABS 20 MEQ TABLET.ER (FP) PO ONE; -SODIUM CHLORIDE 250 ML IV ONE; -amLODIPine BESYLATE 10 MG TABLET (FP) PO ONE
[2021-05-01] MEDS ORDERED: SODIUM CHLORIDE 250 ML IV ONE (09:00)
[2021-05-01] MEDS ORDERED: POTASSIUM CHLORIDE TABS 20 MEQ TABLET.ER (FP) PO ONE (10:00)
[2021-05-01] MEDS ORDERED: amLODIPine BESYLATE 10 MG TABLET (FP) PO ONE (10:00)
[2021-05-01] MEDS ORDERED: DEXAMETHASONE 4 MG TABLET (FP) PO ONE (10:00)
[2021-05-01] MEDS ORDERED: MAGNESIUM SULFATE IN WATER 2 GM/50 ML IVPB IVPB ONE (10:00)
[2021-05-01] MEDS ORDERED: BORTEZOMIB (VELCADE) 2.5 MG/ML SUB-Q INJECTION SQ ONE (10:30)
[2021-05-01 15:00] VITALS: TEMP 98.5
[2021-05-01 15:21] LABS: BASO % 1.6 % (0-2.0); EOS % 0.5 % (0-4.5); HEMATOCRIT 33.4 % (32.4-45.2); HEMOGLOBIN 11.5 GM/dL (10.7-15.3); LYMPH % 8.3 % (8-40); MCH 31.8 pg (25.7-33.7); MCHC 34.5 g/dl (32.0-36.0); MEAN CELL VOLUME 92.3 fl (80-96); MEAN PLT VOLUME 8.2 fl (7.5-11.1); NEUT % 80.6 % (42.8-82.8); PLATELET COUNT 209 10^3/uL (134-434); RBC 3.62 M/mm3 (3.60-5.2); RDW 13.9 % (11.6-15.6); WHITE BLOOD COUNT 10.2 K/mm3 (4.0-10.0)
[2021-05-01 15:48] LABS: CALCIUM 9.7 mg/dL (8.5-10.1)
[2021-05-01 15:49] LABS: ALBUMIN 3.4 g/dl (3.4-5.0); BLOOD UREA NITROGEN 15.1 mg/dL (7-18)
[2021-05-01 15:51] LABS: URIC ACID 3.6 mg/dL (2.6-7.2)
[2021-05-01] MEDS ORDERED: INSULIN (NOVOLOG) ASPART 100 UNITS/ML 10ML VIAL SQ ONE (15:51)
[2021-05-01 15:52] LABS: BILIRUBIN,DIRECT 0.1 mg/dL (0.0-0.2)
[2021-05-01 15:53] LABS: TOT PROT 6.3 g/dl (6.4-8.2)
[2021-05-01 15:54] LABS: BILIRUBIN,TOTAL 0.4 mg/dL (0.2-1)
[2021-05-01 17:14] VITALS: BP 197/92; PULSE 78
[2021-05-03 08:06] LABS: IGA IMMUNOGLOBULIN 119 mg/dL (64-422); IGG QN IMMUNOGLOBULIN 389 mg/dL (586-1602); IGM QN SERUM 39 mg/dL (26-217)
[2021-05-04 05:16] LABS: FREE KAP CHN UR 104.44 mg/L (0.63-113.79); KAPPA LAMBDA RATIO URIN 8.87 (1.03-31.76)
== END 2021-05-01 17:27 | disposition home or self-care (01) ==
LOC: JONCCHEMO 07:47
PROVIDERS: ATTEND Internal Medicine Hematology & Oncology
PROC: 3E033GC Introduction of Other Therapeutic Substance into Peripheral Vein, Percutaneous Approach (ICD-10-PCS; principal; 2021-05-01)
PROC: 3E033GC Introduction of Other Therapeutic Substance into Peripheral Vein, Percutaneous Approach (ICD-10-PCS; 2021-05-01)
PROC: 3E01305 Introduction of Other Antineoplastic into Subcutaneous Tissue, Percutaneous Approach (ICD-10-PCS; 2021-05-01)
DX: Z51.11 Encounter for antineoplastic chemotherapy (principal); C90.00 Multiple myeloma not having achieved remission; E11.9 Type 2 diabetes mellitus without complications
CPT/HCPCS: 36415; 80048; 80076; 82784; 83615; 83735; 83883; 84155; 84165; 84550; 85025; 86335; 96361; 96365; 96372; 96401; J9041

== ENCOUNTER 2021-05-15 07:24 | Day surgery (SDC) | payer OTHER, BC ==
[2021-05-15] MEDS ORDERED: SODIUM CHLORIDE 250 ML IV ONE ×2 (09:00→15:45)
[2021-05-15] MEDS ORDERED: POTASSIUM CHLORIDE TABS 20 MEQ TABLET.ER (FP) PO ONE ×2 (10:00→15:45)
[2021-05-15] MEDS ORDERED: MAGNESIUM SULFATE IN WATER 2 GM/50 ML IVPB IVPB ONE ×2 (10:00→15:45)
[2021-05-15] MEDS ORDERED: amLODIPine BESYLATE 10 MG TABLET (FP) PO ONE ×2 (10:00→15:45)
[2021-05-15] MEDS ORDERED: DEXAMETHASONE 4 MG TABLET (FP) PO ONE ×2 (10:00→15:45)
[2021-05-15] MEDS ORDERED: BORTEZOMIB (VELCADE) 2.5 MG/ML SUB-Q INJECTION SQ ONE ×2 (10:30→15:45)
[2021-05-15] MEDS ORDERED: oxyCODONE HCL 5 MG TABLET PO ONE (13:22)
[2021-05-15 15:13] LABS: BASO % 1.4 % (0-2.0); EOS % 0.5 % (0-4.5); HEMATOCRIT 31.4 % (32.4-45.2); HEMOGLOBIN 10.7 GM/dL (10.7-15.3); LYMPH % 10.9 % (8-40); MCH 31.5 pg (25.7-33.7); MCHC 34.2 g/dl (32.0-36.0); MEAN PLT VOLUME 7.9 fl (7.5-11.1); MONO % 8.6 % (3.8-10.2); NEUT % 78.6 % (42.8-82.8); PLATELET COUNT 228 10^3/uL (134-434); RBC 3.41 M/mm3 (3.60-5.2); RDW 13.8 % (11.6-15.6); WHITE BLOOD COUNT 7.5 K/mm3 (4.0-10.0)
[2021-05-15 15:23] LABS: CALCIUM 9.7 mg/dL (8.5-10.1)
[2021-05-15 15:24] LABS: ALBUMIN 3.2 g/dl (3.4-5.0); BLOOD UREA NITROGEN 23.8 mg/dL (7-18); MAGNESIUM 1.9 mg/dL (1.8-2.4)
[2021-05-15 15:26] LABS: BILIRUBIN,DIRECT 0.1 mg/dL (0.0-0.2); URIC ACID 5.1 mg/dL (2.6-7.2)
[2021-05-15 15:27] LABS: CREATININE 1.1 mg/dL (0.55-1.3)
[2021-05-15 15:28] LABS: BILIRUBIN,TOTAL 0.4 mg/dL (0.2-1); TOT PROT 6.2 g/dl (6.4-8.2)
[2021-05-15] MEDS ORDERED: Insulin (LOG) Aspart 100 UNITS/ML VIAL SQ ONE (15:30)
[2021-05-15 18:15] VITALS: TEMP 97.8
[2021-05-15 18:16] VITALS: BP 146/71; PULSE 80
== END 2021-05-15 18:10 | disposition home or self-care (01) ==
LOC: JONCCHEMO 07:24
PROVIDERS: ATTEND Internal Medicine Hematology & Oncology
PROC: 3E01305 Introduction of Other Antineoplastic into Subcutaneous Tissue, Percutaneous Approach (ICD-10-PCS; principal; 2021-05-15)
PROC: 3E0337Z Introduction of Electrolytic and Water Balance Substance into Peripheral Vein, Percutaneous Approach (ICD-10-PCS; 2021-05-15)
PROC: 3E033GC Introduction of Other Therapeutic Substance into Peripheral Vein, Percutaneous Approach (ICD-10-PCS; 2021-05-15)
PROC: 3E01329 Introduction of Other Anti-infective into Subcutaneous Tissue, Percutaneous Approach (ICD-10-PCS; 2021-05-15)
DX: Z51.11 Encounter for antineoplastic chemotherapy (principal); C90.00 Multiple myeloma not having achieved remission; E11.9 Type 2 diabetes mellitus without complications
CPT/HCPCS: 36415; 80048; 80076; 83615; 83735; 84550; 85025; 96365; 96368; 96372; 96401; J9041

== ENCOUNTER 2021-05-22 07:35 | Day surgery (SDC) | payer OTHER, BC ==
[2021-05-22] MEDS ORDERED: SODIUM CHLORIDE 250 ML IV ONE (09:00)
[2021-05-22] MEDS ORDERED: MAGNESIUM SULFATE IN WATER 2 GM/50 ML IVPB IVPB ONE (09:00)
[2021-05-22] MEDS ORDERED: amLODIPine BESYLATE 10 MG TABLET (FP) PO ONE (10:00)
[2021-05-22] MEDS ORDERED: POTASSIUM CHLORIDE TABS 20 MEQ TABLET.ER (FP) PO ONE (10:00)
[2021-05-22] MEDS ORDERED: DEXAMETHASONE 4 MG TABLET (FP) PO ONE (10:00)
[2021-05-22] MEDS ORDERED: BORTEZOMIB (VELCADE) 2.5 MG/ML SUB-Q INJECTION SQ ONE (10:30)
[2021-05-22] MEDS ORDERED: AMOXICILLIN 500 MG CAPSULE (FP) PO ONE (13:33)
[2021-05-22 15:02] LABS: BASO % 0.5 % (0-2.0); EOS % 0.9 % (0-4.5); HEMATOCRIT 32.8 % (32.4-45.2); HEMOGLOBIN 11.2 GM/dL (10.7-15.3); MCH 31.2 pg (25.7-33.7); MCHC 34.3 g/dl (32.0-36.0); MEAN CELL VOLUME 91.1 fl (80-96); MEAN PLT VOLUME 7.3 fl (7.5-11.1); MONO % 10.2 % (3.8-10.2); NEUT % 79.4 % (42.8-82.8); PLATELET COUNT 202 10^3/uL (134-434); RDW 13.7 % (11.6-15.6); WHITE BLOOD COUNT 8.3 K/mm3 (4.0-10.0)
[2021-05-22 15:23] LABS: CALCIUM 8.8 mg/dL (8.5-10.1)
[2021-05-22 15:24] LABS: ALBUMIN 3.4 g/dl (3.4-5.0)
[2021-05-22 15:27] LABS: BILIRUBIN,DIRECT 0.1 mg/dL (0.0-0.2); CREATININE 0.8 mg/dL (0.55-1.3)
[2021-05-22 15:29] LABS: BILIRUBIN,TOTAL 0.4 mg/dL (0.2-1); TOT PROT 6.3 g/dl (6.4-8.2)
[2021-05-22 16:53] VITALS: BP 156/75; PULSE 94; TEMP 98.3
[2021-05-27 16:11] LABS: FREE KAP CHN UR 113.76 mg/L (0.63-113.79); KAPPA LAMBDA RATIO URIN 10.11 (1.03-31.76)
== END 2021-05-22 16:58 | disposition home or self-care (01) ==
LOC: JONCCHEMO 07:35
PROVIDERS: ATTEND Internal Medicine Hematology & Oncology
PROC: 3E033GC Introduction of Other Therapeutic Substance into Peripheral Vein, Percutaneous Approach (ICD-10-PCS; principal; 2021-05-22)
PROC: 3E033GC Introduction of Other Therapeutic Substance into Peripheral Vein, Percutaneous Approach (ICD-10-PCS; 2021-05-22)
PROC: 3E01305 Introduction of Other Antineoplastic into Subcutaneous Tissue, Percutaneous Approach (ICD-10-PCS; 2021-05-22)
DX: Z51.11 Encounter for antineoplastic chemotherapy (principal); C90.00 Multiple myeloma not having achieved remission
CPT/HCPCS: 36415; 80048; 80076; 82784; 83615; 83735; 83883; 84155; 84165; 85025; 86335; 96361; 96365; 96401; J9041

== ENCOUNTER 2021-06-19 07:38 | Day surgery (SDC) | payer OTHER, BC ==
[~2021-06-19 07:38] MED LIST changes: +DEXAMETHASONE 4 MG TABLET (FP) PO ONE; +MAGNESIUM SULFATE IN WATER 2 GM/50 ML IVPB IVPB ONE; +POTASSIUM CHLORIDE TABS 20 MEQ TABLET.ER (FP) PO ONE; +SODIUM CHLORIDE 250 ML IV ONE; +amLODIPine BESYLATE 10 MG TABLET (FP) PO ONE
[2021-06-19] MEDS ORDERED: SODIUM CHLORIDE 250 ML IV ONE (10:00)
[2021-06-19] MEDS ORDERED: amLODIPine BESYLATE 10 MG TABLET (FP) PO ONE (10:30)
[2021-06-19] MEDS ORDERED: MAGNESIUM SULFATE IN WATER 2 GM/50 ML IVPB IVPB ONE (10:30)
[2021-06-19] MEDS ORDERED: DEXAMETHASONE 4 MG TABLET (FP) PO ONE (10:30)
[2021-06-19] MEDS ORDERED: POTASSIUM CHLORIDE TABS 20 MEQ TABLET.ER (FP) PO ONE (10:30)
[2021-06-19] MEDS ORDERED: BORTEZOMIB (VELCADE) 2.5 MG/ML SUB-Q INJECTION SQ ONE (11:00)
[2021-06-19 15:54] LABS: BASO % 0.6 % (0-2.0); EOS % 1.2 % (0-4.5); HEMATOCRIT 30.5 % (32.4-45.2); HEMOGLOBIN 10.3 GM/dL (10.7-15.3); MCH 30.5 pg (25.7-33.7); MCHC 33.6 g/dl (32.0-36.0); MEAN CELL VOLUME 90.7 fl (80-96); MEAN PLT VOLUME 7.1 fl (7.5-11.1); MONO % 10.3 % (3.8-10.2); NEUT % 73.9 % (42.8-82.8); PLATELET COUNT 213 10^3/uL (134-434); RBC 3.36 M/mm3 (3.60-5.2); RDW 13.7 % (11.6-15.6); WHITE BLOOD COUNT 6.5 K/mm3 (4.0-10.0)
[2021-06-19 16:19] LABS: CALCIUM 8.9 mg/dL (8.5-10.1)
[2021-06-19 16:20] LABS: ALBUMIN 3.4 g/dl (3.4-5.0); BLOOD UREA NITROGEN 23.2 mg/dL (7-18); MAGNESIUM 1.9 mg/dL (1.8-2.4)
[2021-06-19 16:22] LABS: BILIRUBIN,DIRECT 0.1 mg/dL (0.0-0.2)
[2021-06-19 16:24] LABS: BILIRUBIN,TOTAL 0.3 mg/dL (0.2-1)
[2021-06-19 17:12] VITALS: BP 154/85; PULSE 78; TEMP 97.9
== END 2021-06-19 16:45 | disposition home or self-care (01) ==
LOC: JONCCHEMO 07:38
PROVIDERS: ATTEND Internal Medicine Hematology & Oncology
PROC: 3E04305 Introduction of Other Antineoplastic into Central Vein, Percutaneous Approach (ICD-10-PCS; principal; 2021-06-19)
PROC: 3E0337Z Introduction of Electrolytic and Water Balance Substance into Peripheral Vein, Percutaneous Approach (ICD-10-PCS; 2021-06-19)
PROC: 3E033GC Introduction of Other Therapeutic Substance into Peripheral Vein, Percutaneous Approach (ICD-10-PCS; 2021-06-19)
DX: Z51.11 Encounter for antineoplastic chemotherapy (principal); C90.00 Multiple myeloma not having achieved remission
CPT/HCPCS: 36415; 80048; 80076; 83615; 83735; 84550; 85025; 96365; 96368; 96401; J9041

== ENCOUNTER 2021-06-26 07:05 | Day surgery (SDC) | payer OTHER, BC ==
[2021-06-26] MEDS ORDERED: SODIUM CHLORIDE 250 ML IV ONE (09:00)
[2021-06-26] MEDS ORDERED: POTASSIUM CHLORIDE TABS 20 MEQ TABLET.ER (FP) PO ONE (10:00)
[2021-06-26] MEDS ORDERED: DEXAMETHASONE 4 MG TABLET (FP) PO ONE (10:00)
[2021-06-26] MEDS ORDERED: MAGNESIUM SULFATE IN WATER 2 GM/50 ML IVPB IVPB ONE (10:00)
[2021-06-26] MEDS ORDERED: amLODIPine BESYLATE 10 MG TABLET (FP) PO ONE (10:00)
[2021-06-26] MEDS ORDERED: BORTEZOMIB (VELCADE) 2.5 MG/ML SUB-Q INJECTION SQ ONE (10:30)
[2021-06-26 11:36] LABS: BASO % 0.4 % (0-2.0); EOS % 0.9 % (0-4.5); HEMATOCRIT 32.9 % (32.4-45.2); LYMPH % 9.7 % (8-40); MCH 30.7 pg (25.7-33.7); MCHC 33.6 g/dl (32.0-36.0); MEAN CELL VOLUME 91.3 fl (80-96); MEAN PLT VOLUME 7.4 fl (7.5-11.1); MONO % 11.9 % (3.8-10.2); NEUT % 77.1 % (42.8-82.8); PLATELET COUNT 223 10^3/uL (134-434); RDW 13.7 % (11.6-15.6); WHITE BLOOD COUNT 7.7 K/mm3 (4.0-10.0)
[2021-06-26 11:56] LABS: CALCIUM 9.3 mg/dL (8.5-10.1)
[2021-06-26 11:57] LABS: ALBUMIN 3.3 g/dl (3.4-5.0); BLOOD UREA NITROGEN 22.5 mg/dL (7-18); MAGNESIUM 2.2 mg/dL (1.8-2.4)
[2021-06-26 11:59] LABS: BILIRUBIN,DIRECT 0.1 mg/dL (0.0-0.2); URIC ACID 3.8 mg/dL (2.6-7.2)
[2021-06-26 12:00] LABS: CREATININE 0.9 mg/dL (0.55-1.3)
[2021-06-26 12:01] LABS: BILIRUBIN,TOTAL 0.4 mg/dL (0.2-1)
[2021-06-26 18:19] VITALS: BP 143/76; PULSE 83; TEMP 97.9
[2021-06-27 17:07] LABS: FREE KAPPA,SERUM 73.4 mg/L (3.3-19.4)
== END 2021-06-26 15:40 | disposition home or self-care (01) ==
LOC: JONCCHEMO 07:05
PROVIDERS: ATTEND Internal Medicine Hematology & Oncology
PROC: 3E01305 Introduction of Other Antineoplastic into Subcutaneous Tissue, Percutaneous Approach (ICD-10-PCS; principal; 2021-06-26)
PROC: 3E0337Z Introduction of Electrolytic and Water Balance Substance into Peripheral Vein, Percutaneous Approach (ICD-10-PCS; 2021-06-26)
PROC: 3E033GC Introduction of Other Therapeutic Substance into Peripheral Vein, Percutaneous Approach (ICD-10-PCS; 2021-06-26)
DX: Z51.11 Encounter for antineoplastic chemotherapy (principal); C90.00 Multiple myeloma not having achieved remission
CPT/HCPCS: 36415; 80048; 80076; 82784; 83615; 83735; 83883; 84155; 84165; 84550; 85025; 96361; 96365; 96401; J9041

== ENCOUNTER 2021-07-03 07:10 | Day surgery (SDC) | payer OTHER, BC ==
[2021-07-03] MEDS ORDERED: SODIUM CHLORIDE 250 ML IV ONE (09:00)
[2021-07-03] MEDS ORDERED: amLODIPine BESYLATE 10 MG TABLET (FP) PO ONE (10:00)
[2021-07-03] MEDS ORDERED: DEXAMETHASONE 4 MG TABLET (FP) PO ONE (10:00)
[2021-07-03] MEDS ORDERED: BORTEZOMIB (VELCADE) 2.5 MG/ML SUB-Q INJECTION SQ ONE (10:00)
[2021-07-03] MEDS ORDERED: MAGNESIUM SULFATE IN WATER 2 GM/50 ML IVPB IVPB ONE (10:00)
[2021-07-03] MEDS ORDERED: POTASSIUM CHLORIDE TABS 20 MEQ TABLET.ER (FP) PO ONE (10:00)
[2021-07-03 12:37] LABS: BASO % 0.4 % (0-2.0); EOS % 0.5 % (0-4.5); HEMATOCRIT 32.3 % (32.4-45.2); HEMOGLOBIN 10.8 GM/dL (10.7-15.3); LYMPH % 7.3 % (8-40); MCH 30.2 pg (25.7-33.7); MCHC 33.5 g/dl (32.0-36.0); MEAN CELL VOLUME 90.3 fl (80-96); MEAN PLT VOLUME 7.6 fl (7.5-11.1); MONO % 8.9 % (3.8-10.2); NEUT % 82.9 % (42.8-82.8); PLATELET COUNT 231 10^3/uL (134-434); RBC 3.58 M/mm3 (3.60-5.2); RDW 13.5 % (11.6-15.6); WHITE BLOOD COUNT 10.3 K/mm3 (4.0-10.0)
[2021-07-03 12:52] LABS: ALBUMIN 3.3 g/dl (3.4-5.0); BLOOD UREA NITROGEN 19.4 mg/dL (7-18); CALCIUM 9.2 mg/dL (8.5-10.1); MAGNESIUM 2.1 mg/dL (1.8-2.4)
[2021-07-03 12:55] LABS: BILIRUBIN,DIRECT 0.1 mg/dL (0.0-0.2); CREATININE 0.9 mg/dL (0.55-1.3); URIC ACID 3.9 mg/dL (2.6-7.2)
[2021-07-03 12:57] LABS: BILIRUBIN,TOTAL 0.6 mg/dL (0.2-1)
[2021-07-03 18:53] VITALS: TEMP 98.4
[2021-07-03 19:08] VITALS: BP 182/71; PULSE 75
== END 2021-07-03 16:30 | disposition home or self-care (01) ==
LOC: JONCCHEMO 07:10
PROVIDERS: ATTEND Internal Medicine Hematology & Oncology
PROC: 3E01305 Introduction of Other Antineoplastic into Subcutaneous Tissue, Percutaneous Approach (ICD-10-PCS; principal; 2021-07-03)
PROC: 3E033GC Introduction of Other Therapeutic Substance into Peripheral Vein, Percutaneous Approach (ICD-10-PCS; 2021-07-03)
DX: Z51.11 Encounter for antineoplastic chemotherapy (principal); C90.00 Multiple myeloma not having achieved remission
CPT/HCPCS: 36415; 80048; 80076; 83615; 83735; 84550; 85025; 96365; 96401; J9041

== ENCOUNTER 2021-07-17 07:38 | Day surgery (SDC) | payer OTHER, BC ==
[2021-07-17] MEDS ORDERED: SODIUM CHLORIDE 250 ML IV ONE (09:00)
[2021-07-17] MEDS ORDERED: DEXAMETHASONE 4 MG TABLET (FP) PO ONE (10:00)
[2021-07-17] MEDS ORDERED: BORTEZOMIB (VELCADE) 2.5 MG/ML SUB-Q INJECTION SQ ONE (10:00)
[2021-07-17] MEDS ORDERED: POTASSIUM CHLORIDE TABS 20 MEQ TABLET.ER (FP) PO ONE ×2 (10:00→15:40)
[2021-07-17] MEDS ORDERED: amLODIPine BESYLATE 10 MG TABLET (FP) PO ONE (10:00)
[2021-07-17] MEDS ORDERED: MAGNESIUM SULFATE IN WATER 2 GM/50 ML IVPB IVPB ONE (10:00)
[2021-07-17 13:02] LABS: HEMATOCRIT 31.8 % (32.4-45.2); HEMOGLOBIN 10.5 GM/dL (10.7-15.3); MCHC 32.9 g/dl (32.0-36.0); MEAN PLT VOLUME 7.5 fl (7.5-11.1); MONO % 8.5 % (3.8-10.2); NEUT % 77.5 % (42.8-82.8); PLATELET COUNT 246 10^3/uL (134-434); RBC 3.49 M/mm3 (3.60-5.2); RDW 13.4 % (11.6-15.6); WHITE BLOOD COUNT 7.7 K/mm3 (4.0-10.0)
[2021-07-17 13:27] LABS: BLOOD UREA NITROGEN 16.2 mg/dL (7-18); CALCIUM 8.7 mg/dL (8.5-10.1); MAGNESIUM 2.1 mg/dL (1.8-2.4)
[2021-07-17 13:28] LABS: ALBUMIN 3.3 g/dl (3.4-5.0)
[2021-07-17 13:30] LABS: BILIRUBIN,DIRECT 0.1 mg/dL (0.0-0.2); CREATININE 0.8 mg/dL (0.55-1.3); URIC ACID 3.6 mg/dL (2.6-7.2)
[2021-07-17 13:32] LABS: BILIRUBIN,TOTAL 0.6 mg/dL (0.2-1)
[2021-07-17 17:17] VITALS: BP 171/55; PULSE 79; TEMP 98
== END 2021-07-17 15:22 | disposition home or self-care (01) ==
LOC: JONCCHEMO 07:38
PROVIDERS: ATTEND Internal Medicine Hematology & Oncology
PROC: 3E01305 Introduction of Other Antineoplastic into Subcutaneous Tissue, Percutaneous Approach (ICD-10-PCS; principal; 2021-07-17)
PROC: 3E033GC Introduction of Other Therapeutic Substance into Peripheral Vein, Percutaneous Approach (ICD-10-PCS; 2021-07-17)
DX: Z51.11 Encounter for antineoplastic chemotherapy (principal); C90.00 Multiple myeloma not having achieved remission
CPT/HCPCS: 36415; 80048; 80076; 83615; 83735; 84550; 85025; 96365; 96401; J9041

== ENCOUNTER 2021-07-31 07:16 | Day surgery (SDC) | payer OTHER, BC ==
[2021-07-31] MEDS ORDERED: SODIUM CHLORIDE 250 ML IV ONE (10:00)
[2021-07-31] MEDS ORDERED: BORTEZOMIB (VELCADE) 2.5 MG/ML SUB-Q INJECTION SQ ONE (11:00)
[2021-07-31] MEDS ORDERED: amLODIPine BESYLATE 10 MG TABLET (FP) PO ONE (11:00)
[2021-07-31] MEDS ORDERED: POTASSIUM CHLORIDE TABS 20 MEQ TABLET.ER (FP) PO ONE (11:00)
[2021-07-31] MEDS ORDERED: DEXAMETHASONE 4 MG TABLET (FP) PO ONE (11:00)
[2021-07-31] MEDS ORDERED: MAGNESIUM SULFATE IN WATER 2 GM/50 ML IVPB IVPB ONE (11:00)
[2021-07-31 14:00] LABS: BASO % 0.5 % (0-2.0); EOS % 0.6 % (0-4.5); HEMATOCRIT 31.3 % (32.4-45.2); HEMOGLOBIN 10.4 GM/dL (10.7-15.3); LYMPH % 7.4 % (8-40); MCHC 33.2 g/dl (32.0-36.0); MEAN CELL VOLUME 90.1 fl (80-96); MEAN PLT VOLUME 7.3 fl (7.5-11.1); MONO % 7.5 % (3.8-10.2); PLATELET COUNT 250 10^3/uL (134-434); RBC 3.47 M/mm3 (3.60-5.2); RDW 13.6 % (11.6-15.6); WHITE BLOOD COUNT 9.4 K/mm3 (4.0-10.0)
[2021-07-31 14:20] LABS: ALBUMIN 3.3 g/dl (3.4-5.0); BLOOD UREA NITROGEN 19.6 mg/dL (7-18); MAGNESIUM 1.9 mg/dL (1.8-2.4)
[2021-07-31 14:23] LABS: BILIRUBIN,DIRECT 0.1 mg/dL (0.0-0.2); URIC ACID 4.5 mg/dL (2.6-7.2)
[2021-07-31 14:25] LABS: BILIRUBIN,TOTAL 0.4 mg/dL (0.2-1); TOT PROT 6.1 g/dl (6.4-8.2)
[2021-07-31 14:32] LABS: CALCIUM 10.1 mg/dL (8.5-10.1)
[2021-07-31 18:33] VITALS: BP 141/66; PULSE 80; TEMP 99
[2021-08-02 18:07] LABS: FREE KAPPA,SERUM 120.5 mg/L (3.3-19.4)
[2021-08-05 15:07] LABS: FREE KAP CHN UR 85.33 mg/L (0.63-113.79); KAPPA LAMBDA RATIO URIN 6.44 (1.03-31.76)
== END 2021-07-31 15:45 | disposition home or self-care (01) ==
LOC: JONCCHEMO 07:16
PROVIDERS: ATTEND Internal Medicine Hematology & Oncology
PROC: 3E01305 Introduction of Other Antineoplastic into Subcutaneous Tissue, Percutaneous Approach (ICD-10-PCS; principal; 2021-07-31)
PROC: 3E033GC Introduction of Other Therapeutic Substance into Peripheral Vein, Percutaneous Approach (ICD-10-PCS; 2021-07-31)
DX: Z51.11 Encounter for antineoplastic chemotherapy (principal); C90.00 Multiple myeloma not having achieved remission
CPT/HCPCS: 36415; 80048; 80076; 82784; 83615; 83735; 83883; 84550; 85025; 86335; 96365; 96401; J9041

== ENCOUNTER 2021-08-14 09:05 | Day surgery (SDC) | payer OTHER, BC ==
[2021-08-14] MEDS ORDERED: SODIUM CHLORIDE 250 ML IV ONE (10:00)
[2021-08-14] MEDS ORDERED: MAGNESIUM SULFATE IN WATER 2 GM/50 ML IVPB IVPB ONE (10:00)
[2021-08-14] MEDS ORDERED: DEXAMETHASONE 4 MG TABLET (FP) PO ONE (10:30)
[2021-08-14] MEDS ORDERED: amLODIPine BESYLATE 10 MG TABLET (FP) PO ONE (10:30)
[2021-08-14] MEDS ORDERED: POTASSIUM CHLORIDE TABS 20 MEQ TABLET.ER (FP) PO ONE (10:30)
[2021-08-14] MEDS ORDERED: BORTEZOMIB (VELCADE) 2.5 MG/ML SUB-Q INJECTION SQ ONE (11:00)
[2021-08-14 13:32] LABS: BASO % 0.4 % (0-2.0); EOS % 0.7 % (0-4.5); HEMATOCRIT 30.6 % (32.4-45.2); HEMOGLOBIN 10.4 GM/dL (10.7-15.3); LYMPH % 9.4 % (8-40); MCH 30.4 pg (25.7-33.7); MCHC 34.1 g/dl (32.0-36.0); MEAN CELL VOLUME 89.2 fl (80-96); MEAN PLT VOLUME 7.3 fl (7.5-11.1); MONO % 9.3 % (3.8-10.2); NEUT % 80.2 % (42.8-82.8); PLATELET COUNT 220 10^3/uL (134-434); RBC 3.43 M/mm3 (3.60-5.2); RDW 13.5 % (11.6-15.6); WHITE BLOOD COUNT 7.9 K/mm3 (4.0-10.0)
[2021-08-14 14:33] LABS: BLOOD UREA NITROGEN 25.4 mg/dL (7-18)
[2021-08-14 14:34] LABS: ALBUMIN 3.4 g/dl (3.4-5.0); CALCIUM 9.4 mg/dL (8.5-10.1)
[2021-08-14 14:35] LABS: URIC ACID 3.7 mg/dL (2.6-7.2)
[2021-08-14 14:36] LABS: CREATININE 0.9 mg/dL (0.55-1.3)
[2021-08-14 14:37] LABS: BILIRUBIN,DIRECT 0.1 mg/dL (0.0-0.2)
[2021-08-14 14:39] LABS: BILIRUBIN,TOTAL 0.4 mg/dL (0.2-1)
[2021-08-14 16:39] VITALS: BP 155/63; PULSE 72; TEMP 98.6
[2021-08-16 18:07] LABS: FREE KAPPA,SERUM 127.5 mg/L (3.3-19.4)
[2021-08-17 07:09] LABS: FREE KAP CHN UR 112.73 mg/L (0.63-113.79); KAPPA LAMBDA RATIO URIN 7.93 (1.03-31.76)
[2021-08-17 14:11] LABS: BETA-2-MICROGLOBULIN 2.2 mg/L (0.6-2.4)
== END 2021-08-14 15:00 | disposition home or self-care (01) ==
LOC: JONCCHEMO 09:05
PROVIDERS: ATTEND Internal Medicine Hematology & Oncology
PROC: 3E01305 Introduction of Other Antineoplastic into Subcutaneous Tissue, Percutaneous Approach (ICD-10-PCS; principal; 2021-08-14)
PROC: 3E033GC Introduction of Other Therapeutic Substance into Peripheral Vein, Percutaneous Approach (ICD-10-PCS; 2021-08-14)
PROC: 3E033GC Introduction of Other Therapeutic Substance into Peripheral Vein, Percutaneous Approach (ICD-10-PCS; 2021-08-14)
DX: Z51.11 Encounter for antineoplastic chemotherapy (principal); C90.00 Multiple myeloma not having achieved remission; E11.9 Type 2 diabetes mellitus without complications
CPT/HCPCS: 36415; 80048; 80076; 82232; 82784; 83615; 83735; 83883; 84550; 85025; 86335; 96365; 96368; 96401; J9041

== ENCOUNTER 2021-08-28 07:23 | Day surgery (SDC) | payer OTHER, BC ==
[2021-08-28] MEDS ORDERED: SODIUM CHLORIDE 250 ML IV ONE (10:00)
[2021-08-28] MEDS ORDERED: POTASSIUM CHLORIDE TABS 20 MEQ TABLET.ER (FP) PO ONE ×2 (10:30→14:42)
[2021-08-28] MEDS ORDERED: MAGNESIUM SULFATE IN WATER 2 GM/50 ML IVPB IVPB ONE (10:30)
[2021-08-28] MEDS ORDERED: DEXAMETHASONE 4 MG TABLET (FP) PO ONE (10:30)
[2021-08-28] MEDS ORDERED: amLODIPine BESYLATE 10 MG TABLET (FP) PO ONE (10:30)
[2021-08-28] MEDS ORDERED: BORTEZOMIB (VELCADE) 2.5 MG/ML SUB-Q INJECTION SQ ONE (11:00)
[2021-08-28 13:50] LABS: BASO % 0.4 % (0-2.0); EOS % 0.6 % (0-4.5); HEMATOCRIT 31.8 % (32.4-45.2); HEMOGLOBIN 10.5 GM/dL (10.7-15.3); LYMPH % 7.4 % (8-40); MCH 29.8 pg (25.7-33.7); MCHC 33.2 g/dl (32.0-36.0); MEAN CELL VOLUME 89.7 fl (80-96); MEAN PLT VOLUME 7.2 fl (7.5-11.1); MONO % 8.8 % (3.8-10.2); NEUT % 82.8 % (42.8-82.8); PLATELET COUNT 242 10^3/uL (134-434); RBC 3.54 M/mm3 (3.60-5.2); RDW 13.7 % (11.6-15.6); WHITE BLOOD COUNT 8.4 K/mm3 (4.0-10.0)
[2021-08-28 14:08] LABS: CALCIUM 9.7 mg/dL (8.5-10.1)
[2021-08-28 14:09] LABS: ALBUMIN 3.4 g/dl (3.4-5.0); MAGNESIUM 1.9 mg/dL (1.8-2.4)
[2021-08-28 14:11] LABS: URIC ACID 5.3 mg/dL (2.6-7.2)
[2021-08-28 14:12] LABS: BILIRUBIN,DIRECT 0.2 mg/dL (0.0-0.2); CREATININE 0.9 mg/dL (0.55-1.3)
[2021-08-28 14:13] LABS: BILIRUBIN,TOTAL 0.5 mg/dL (0.2-1); TOT PROT 6.3 g/dl (6.4-8.2)
[2021-08-28 14:21] LABS: BLOOD UREA NITROGEN 25.6 mg/dL (7-18)
[2021-08-28 15:54] VITALS: TEMP 98.9
[2021-08-28 16:17] VITALS: BP 159/63; PULSE 72
[2021-08-29 17:10] LABS: FREE KAPPA,SERUM 157.4 mg/L (3.3-19.4)
[2021-08-30 08:08] LABS: BETA-2-MICROGLOBULIN 2.3 mg/L (0.6-2.4)
== END 2021-08-28 15:20 | disposition home or self-care (01) ==
LOC: JONCCHEMO 07:23
PROVIDERS: ATTEND Internal Medicine Hematology & Oncology
PROC: 3E01305 Introduction of Other Antineoplastic into Subcutaneous Tissue, Percutaneous Approach (ICD-10-PCS; principal; 2021-08-28)
PROC: 3E033GC Introduction of Other Therapeutic Substance into Peripheral Vein, Percutaneous Approach (ICD-10-PCS; 2021-08-28)
DX: Z51.11 Encounter for antineoplastic chemotherapy (principal); C90.00 Multiple myeloma not having achieved remission
CPT/HCPCS: 36415; 80048; 80076; 82232; 82784; 83615; 83735; 83883; 84155; 84165; 84550; 85025; 96365; 96401; J9041

== ENCOUNTER 2021-09-11 07:37 | Day surgery (SDC) | payer OTHER, BC ==
[2021-09-11] MEDS ORDERED: DEXAMETHASONE 4 MG TABLET (FP) PO ONE (10:00)
[2021-09-11] MEDS ORDERED: MAGNESIUM SULFATE IN WATER 2 GM/50 ML IVPB IVPB ONE (10:00)
[2021-09-11] MEDS ORDERED: POTASSIUM CHLORIDE TABS 20 MEQ TABLET.ER (FP) PO ONE (10:00)
[2021-09-11] MEDS ORDERED: amLODIPine BESYLATE 10 MG TABLET (FP) PO ONE (10:00)
[2021-09-11] MEDS ORDERED: SODIUM CHLORIDE 250 ML IV ONE (10:00)
[2021-09-11] MEDS ORDERED: BORTEZOMIB (VELCADE) 2.5 MG/ML SUB-Q INJECTION SQ ONE (10:30)
[2021-09-11 12:57] LABS: BASO % 0.9 % (0-2.0); EOS % 0.8 % (0-4.5); HEMATOCRIT 31.4 % (32.4-45.2); HEMOGLOBIN 10.8 GM/dL (10.7-15.3); LYMPH % 11.6 % (8-40); MCH 30.2 pg (25.7-33.7); MCHC 34.3 g/dl (32.0-36.0); MEAN CELL VOLUME 88.1 fl (80-96); MEAN PLT VOLUME 7.1 fl (7.5-11.1); MONO % 8.1 % (3.8-10.2); NEUT % 78.6 % (42.8-82.8); PLATELET COUNT 246 10^3/uL (134-434); RBC 3.57 M/mm3 (3.60-5.2); RDW 13.6 % (11.6-15.6); WHITE BLOOD COUNT 8.2 K/mm3 (4.0-10.0)
[2021-09-11 13:23] LABS: ALBUMIN 3.3 g/dl (3.4-5.0); BLOOD UREA NITROGEN 16.3 mg/dL (7-18); CALCIUM 8.9 mg/dL (8.5-10.1)
[2021-09-11 13:25] LABS: BILIRUBIN,DIRECT 0.1 mg/dL (0.0-0.2); CREATININE 0.8 mg/dL (0.55-1.3); URIC ACID 4.1 mg/dL (2.6-7.2)
[2021-09-11 13:27] LABS: BILIRUBIN,TOTAL 0.3 mg/dL (0.2-1); TOT PROT 6.2 g/dl (6.4-8.2)
[2021-09-11 17:43] VITALS: BP 179/85; PULSE 71; TEMP 99
== END 2021-09-11 14:45 | disposition home or self-care (01) ==
LOC: JONCCHEMO 07:37
PROVIDERS: ATTEND Internal Medicine Hematology & Oncology
PROC: 3E01305 Introduction of Other Antineoplastic into Subcutaneous Tissue, Percutaneous Approach (ICD-10-PCS; principal; 2021-09-11)
PROC: 3E033GC Introduction of Other Therapeutic Substance into Peripheral Vein, Percutaneous Approach (ICD-10-PCS; 2021-09-11)
PROC: 3E0337Z Introduction of Electrolytic and Water Balance Substance into Peripheral Vein, Percutaneous Approach (ICD-10-PCS; 2021-09-11)
DX: Z51.11 Encounter for antineoplastic chemotherapy (principal); C90.00 Multiple myeloma not having achieved remission
CPT/HCPCS: 36415; 80048; 80076; 83615; 83735; 84550; 85025; 96365; 96401; J9041

== ENCOUNTER 2021-09-25 07:13 | Day surgery (SDC) | payer OTHER, BC ==
[2021-09-25] MEDS ORDERED: SODIUM CHLORIDE 250 ML IV ONE (10:00)
[2021-09-25] MEDS ORDERED: amLODIPine BESYLATE 10 MG TABLET (FP) PO ONE (10:30)
[2021-09-25] MEDS ORDERED: MAGNESIUM SULFATE IN WATER 2 GM/50 ML IVPB IVPB ONE (10:30)
[2021-09-25] MEDS ORDERED: POTASSIUM CHLORIDE TABS 20 MEQ TABLET.ER (FP) PO ONE ×2 (10:30→15:15)
[2021-09-25] MEDS ORDERED: DEXAMETHASONE 4 MG TABLET (FP) PO ONE (11:00)
[2021-09-25] MEDS ORDERED: BORTEZOMIB (VELCADE) 2.5 MG/ML SUB-Q INJECTION SQ ONE (11:00)
[2021-09-25 14:08] LABS: BASO % 0.5 % (0-2.0); EOS % 0.9 % (0-4.5); HEMATOCRIT 31.9 % (32.4-45.2); HEMOGLOBIN 10.5 GM/dL (10.7-15.3); LYMPH % 9.6 % (8-40); MCH 29.5 pg (25.7-33.7); MCHC 32.9 g/dl (32.0-36.0); MEAN CELL VOLUME 89.4 fl (80-96); MEAN PLT VOLUME 7.2 fl (7.5-11.1); MONO % 8.8 % (3.8-10.2); NEUT % 80.2 % (42.8-82.8); PLATELET COUNT 248 10^3/uL (134-434); RBC 3.56 M/mm3 (3.60-5.2); RDW 13.8 % (11.6-15.6); WHITE BLOOD COUNT 8.3 K/mm3 (4.0-10.0)
[2021-09-25 14:21] LABS: MAGNESIUM 1.8 mg/dL (1.8-2.4)
[2021-09-25 14:22] LABS: ALBUMIN 3.2 g/dl (3.4-5.0); BLOOD UREA NITROGEN 25.3 mg/dL (7-18); CALCIUM 8.9 mg/dL (8.5-10.1)
[2021-09-25 14:24] LABS: URIC ACID 4.1 mg/dL (2.6-7.2)
[2021-09-25 14:25] LABS: BILIRUBIN,DIRECT 0.2 mg/dL (0.0-0.2); CREATININE 0.9 mg/dL (0.55-1.3)
[2021-09-25 14:27] LABS: BILIRUBIN,TOTAL 0.4 mg/dL (0.2-1)
[2021-09-25 17:06] VITALS: BP 171/68; PULSE 79; TEMP 98.1
== END 2021-09-25 15:25 | disposition home or self-care (01) ==
LOC: JONCCHEMO 07:13
PROVIDERS: ATTEND Internal Medicine Hematology & Oncology
PROC: 3E01305 Introduction of Other Antineoplastic into Subcutaneous Tissue, Percutaneous Approach (ICD-10-PCS; principal; 2021-09-25)
PROC: 3E033GC Introduction of Other Therapeutic Substance into Peripheral Vein, Percutaneous Approach (ICD-10-PCS; 2021-09-25)
DX: Z51.11 Encounter for antineoplastic chemotherapy (principal); C90.00 Multiple myeloma not having achieved remission
CPT/HCPCS: 36415; 80048; 80076; 83615; 83735; 84550; 85025; 96365; 96401; J9041

== ENCOUNTER 2021-10-16 07:08 | Day surgery (SDC) | payer OTHER, BC ==
[2021-10-16] MEDS ORDERED: MAGNESIUM SULFATE IN WATER 2 GM/50 ML IVPB IVPB ONE (09:30)
[2021-10-16] MEDS ORDERED: SODIUM CHLORIDE 250 ML IV ONE (09:30)
[2021-10-16] MEDS ORDERED: BORTEZOMIB (VELCADE) 2.5 MG/ML SUB-Q INJECTION SQ ONE (10:00)
[2021-10-16] MEDS ORDERED: DEXAMETHASONE 4 MG TABLET (FP) PO ONE (10:00)
[2021-10-16] MEDS ORDERED: amLODIPine BESYLATE 10 MG TABLET (FP) PO ONE (10:00)
[2021-10-16] MEDS ORDERED: POTASSIUM CHLORIDE TABS 20 MEQ TABLET.ER (FP) PO ONE ×2 (10:00→15:30)
[2021-10-16] MEDS ORDERED: ONDANSETRON 4 MG/2 ML VIAL IVPB ONE (12:47)
[2021-10-16] MEDS ORDERED: ONDANSETRON INJECTION 8 MG in SODIUM CHLORIDE 50 ML IVPB ONE (13:00)
[2021-10-16 14:35] LABS: BASO % 0.4 % (0-2.0); EOS % 0.6 % (0-4.5); HEMATOCRIT 32.7 % (32.4-45.2); HEMOGLOBIN 10.8 GM/dL (10.7-15.3); LYMPH % 9.3 % (8-40); MCH 29.2 pg (25.7-33.7); MCHC 33.1 g/dl (32.0-36.0); MEAN CELL VOLUME 88.1 fl (80-96); MEAN PLT VOLUME 7.5 fl (7.5-11.1); MONO % 9.7 % (3.8-10.2); PLATELET COUNT 253 10^3/uL (134-434); RBC 3.72 M/mm3 (3.60-5.2); RDW 13.6 % (11.6-15.6); WHITE BLOOD COUNT 7.4 K/mm3 (4.0-10.0)
[2021-10-16 15:05] LABS: ALBUMIN 3.2 g/dl (3.4-5.0); BLOOD UREA NITROGEN 17.4 mg/dL (7-18); CALCIUM 9.2 mg/dL (8.5-10.1)
[2021-10-16 15:08] LABS: BILIRUBIN,DIRECT 0.1 mg/dL (0.0-0.2); CREATININE 0.9 mg/dL (0.55-1.3)
[2021-10-16 15:10] LABS: BILIRUBIN,TOTAL 0.4 mg/dL (0.2-1); TOT PROT 6.4 g/dl (6.4-8.2)
[2021-10-16] MEDS ORDERED: INSULIN (NOVOLOG) ASPART 100 UNITS/ML 10ML VIAL SQ ONE (15:25)
[2021-10-16] MEDS ORDERED: INSULIN (NOVOLOG) ASPART 100 UNITS/ML 10ML VIAL ONE (15:42)
[2021-10-16 17:25] VITALS: TEMP 98.2
[2021-10-16 17:32] VITALS: BP 164/84; PULSE 82
[2021-10-17] MEDS ORDERED: POTASSIUM CHLORIDE TABS 20 MEQ TABLET.ER (FP) PO ONE (15:20)
[2021-10-18 17:10] LABS: FREE KAPPA,SERUM 236.1 mg/L (3.3-19.4)
== END 2021-10-16 16:30 | disposition home or self-care (01) ==
LOC: JONCCHEMO 07:08
PROVIDERS: ATTEND Internal Medicine Hematology & Oncology
PROC: 3E01305 Introduction of Other Antineoplastic into Subcutaneous Tissue, Percutaneous Approach (ICD-10-PCS; principal; 2021-10-16)
PROC: 3E033GC Introduction of Other Therapeutic Substance into Peripheral Vein, Percutaneous Approach (ICD-10-PCS; 2021-10-16)
DX: Z51.11 Encounter for antineoplastic chemotherapy (principal); C90.00 Multiple myeloma not having achieved remission
CPT/HCPCS: 36415; 80048; 80076; 82232; 82784; 83615; 83735; 83883; 84155; 84165; 85025; 96365; 96368; 96401; J9041

== ENCOUNTER 2021-11-06 06:51 | Day surgery (SDC) | payer OTHER, BC ==
[2021-11-06] MEDS ORDERED: MAGNESIUM SULFATE IN WATER 2 GM/50 ML IVPB IVPB ONE (10:00)
[2021-11-06] MEDS ORDERED: DEXAMETHASONE 4 MG TABLET (FP) PO ONE (10:00)
[2021-11-06] MEDS ORDERED: POTASSIUM CHLORIDE TABS 20 MEQ TABLET.ER (FP) PO ONE ×2 (10:00→14:38)
[2021-11-06] MEDS ORDERED: amLODIPine BESYLATE 10 MG TABLET (FP) PO ONE (10:00)
[2021-11-06] MEDS ORDERED: SODIUM CHLORIDE 250 ML IV ONE (10:00)
[2021-11-06] MEDS ORDERED: BORTEZOMIB (VELCADE) 2.5 MG/ML SUB-Q INJECTION SQ ONE (10:30)
[2021-11-06] MEDS ORDERED: ONDANSETRON 4 MG/2 ML VIAL IVPB ONE (11:53)
[2021-11-06 13:17] LABS: BASO % 0.6 % (0-2.0); EOS % 0.3 % (0-4.5); HEMOGLOBIN 11.5 GM/dL (10.7-15.3); LYMPH % 9.2 % (8-40); MCHC 32.9 g/dl (32.0-36.0); MEAN CELL VOLUME 88.1 fl (80-96); MEAN PLT VOLUME 7.4 fl (7.5-11.1); MONO % 7.2 % (3.8-10.2); NEUT % 82.7 % (42.8-82.8); PLATELET COUNT 269 10^3/uL (134-434); RBC 3.97 M/mm3 (3.60-5.2); RDW 13.5 % (11.6-15.6)
[2021-11-06 14:00] LABS: CALCIUM 9.4 mg/dL (8.5-10.1)
[2021-11-06 14:01] LABS: ALBUMIN 3.5 g/dl (3.4-5.0); MAGNESIUM 2.1 mg/dL (1.8-2.4)
[2021-11-06 14:03] LABS: BILIRUBIN,DIRECT 0.1 mg/dL (0.0-0.2)
[2021-11-06 14:05] LABS: BILIRUBIN,TOTAL 0.5 mg/dL (0.2-1); TOT PROT 6.6 g/dl (6.4-8.2); URIC ACID 3.5 mg/dL (2.6-7.2)
[2021-11-06 14:35] LABS: BLOOD UREA NITROGEN 14.9 mg/dL (7-18)
[2021-11-06] MEDS ORDERED: INSULIN (NOVOLOG) ASPART 100 UNITS/ML 10ML VIAL SQ ONE (14:37)
[2021-11-06] MEDS ORDERED: ONDANSETRON 4 MG/2 ML VIAL ONE (14:38)
[2021-11-06 18:23] VITALS: BP 160/85; PULSE 75; TEMP 98.7
[2021-11-08 17:06] LABS: BETA-2-MICROGLOBULIN 2.3 mg/L (0.6-2.4)
== END 2021-11-06 15:45 | disposition home or self-care (01) ==
LOC: JONCCHEMO 06:51
PROVIDERS: ATTEND Internal Medicine Hematology & Oncology
PROC: 3E033GC Introduction of Other Therapeutic Substance into Peripheral Vein, Percutaneous Approach (ICD-10-PCS; principal; 2021-11-06)
PROC: 3E01305 Introduction of Other Antineoplastic into Subcutaneous Tissue, Percutaneous Approach (ICD-10-PCS; 2021-11-06)
DX: Z51.11 Encounter for antineoplastic chemotherapy (principal); C90.00 Multiple myeloma not having achieved remission
CPT/HCPCS: 36415; 80048; 80076; 82232; 82784; 83615; 83735; 83883; 84155; 84165; 84550; 85025; 96365; 96368; 96401; J9041

== ENCOUNTER 2021-11-20 06:56 | Day surgery (SDC) | payer OTHER, BC ==
[2021-11-20] MEDS ORDERED: SODIUM CHLORIDE 250 ML IV ONE (09:00)
[2021-11-20] MEDS ORDERED: MAGNESIUM SULFATE IN WATER 2 GM/50 ML IVPB IVPB ONE (09:30)
[2021-11-20] MEDS ORDERED: POTASSIUM CHLORIDE TABS 20 MEQ TABLET.ER (FP) PO ONE (10:00)
[2021-11-20] MEDS ORDERED: BORTEZOMIB (VELCADE) 2.5 MG/ML SUB-Q INJECTION SQ ONE (10:00)
[2021-11-20] MEDS ORDERED: amLODIPine BESYLATE 10 MG TABLET (FP) PO ONE (10:00)
[2021-11-20] MEDS ORDERED: DEXAMETHASONE 4 MG TABLET (FP) PO ONE (10:00)
[2021-11-20 14:16] LABS: BASO % 0.8 % (0-2.0); EOS % 0.4 % (0-4.5); HEMATOCRIT 32.9 % (32.4-45.2); HEMOGLOBIN 11.2 GM/dL (10.7-15.3); LYMPH % 8.9 % (8-40); MCH 29.6 pg (25.7-33.7); MCHC 33.9 g/dl (32.0-36.0); MEAN CELL VOLUME 87.2 fl (80-96); MEAN PLT VOLUME 7.3 fl (7.5-11.1); MONO % 5.6 % (3.8-10.2); NEUT % 84.3 % (42.8-82.8); PLATELET COUNT 263 10^3/uL (134-434); RBC 3.77 M/mm3 (3.60-5.2); RDW 13.9 % (11.6-15.6)
[2021-11-20 14:36] LABS: CALCIUM 9.2 mg/dL (8.5-10.1)
[2021-11-20 14:37] LABS: ALBUMIN 3.3 g/dl (3.4-5.0); BLOOD UREA NITROGEN 23.5 mg/dL (7-18); MAGNESIUM 1.9 mg/dL (1.8-2.4)
[2021-11-20 14:39] LABS: URIC ACID 4.5 mg/dL (2.6-7.2)
[2021-11-20 14:40] LABS: BILIRUBIN,DIRECT 0.1 mg/dL (0.0-0.2); CREATININE 1.1 mg/dL (0.55-1.3)
[2021-11-20 14:41] LABS: TOT PROT 6.4 g/dl (6.4-8.2)
[2021-11-20 14:42] LABS: BILIRUBIN,TOTAL 0.4 mg/dL (0.2-1)
[2021-11-20] MEDS ORDERED: ONDANSETRON 4 MG/2 ML VIAL IVPB ONE (15:00)
[2021-11-20 18:37] VITALS: BP 154/57; PULSE 73; TEMP 98.9
== END 2021-11-20 16:30 | disposition home or self-care (01) ==
LOC: JONCCHEMO 06:56
PROVIDERS: ATTEND Internal Medicine Hematology & Oncology
PROC: 3E01305 Introduction of Other Antineoplastic into Subcutaneous Tissue, Percutaneous Approach (ICD-10-PCS; principal; 2021-11-20)
PROC: 3E033GC Introduction of Other Therapeutic Substance into Peripheral Vein, Percutaneous Approach (ICD-10-PCS; 2021-11-20)
DX: Z51.11 Encounter for antineoplastic chemotherapy (principal); C90.00 Multiple myeloma not having achieved remission
CPT/HCPCS: 36415; 80048; 80076; 83735; 84550; 85025; 96365; 96401; J9041

== ENCOUNTER 2021-12-03 13:15 | Day surgery (SDC) | payer OTHER, BC ==
[2021-12-03 14:21] LABS: BASO % 0.6 % (0-2.0); EOS % 0.6 % (0-4.5); HEMATOCRIT 29.8 % (32.4-45.2); HEMOGLOBIN 9.9 GM/dL (10.7-15.3); LYMPH % 14.2 % (8-40); MCH 29.2 pg (25.7-33.7); MCHC 33.3 g/dl (32.0-36.0); MEAN CELL VOLUME 87.8 fl (80-96); MEAN PLT VOLUME 7.2 fl (7.5-11.1); MONO % 8.8 % (3.8-10.2); NEUT % 75.8 % (42.8-82.8); PLATELET COUNT 259 10^3/uL (134-434); WHITE BLOOD COUNT 10.7 K/mm3 (4.0-10.0)
[2021-12-03] MEDS ORDERED: ONDANSETRON 4 MG/2 ML VIAL IVPB ONE (14:30)
[2021-12-03] MEDS ORDERED: MAGNESIUM SULFATE IN WATER 2 GM/50 ML IVPB IVPB ONE (14:30)
[2021-12-03] MEDS ORDERED: ONDANSETRON INJECTION 8 MG in SODIUM CHLORIDE 50 ML IVPB ONE (14:30)
[2021-12-03] MEDS ORDERED: SODIUM CHLORIDE 250 ML IV ONE (14:30)
[2021-12-03 14:41] LABS: ALBUMIN 3.2 g/dl (3.4-5.0); CALCIUM 9.7 mg/dL (8.5-10.1)
[2021-12-03 14:42] LABS: BLOOD UREA NITROGEN 21.1 mg/dL (7-18); MAGNESIUM 1.9 mg/dL (1.8-2.4)
[2021-12-03 14:44] LABS: BILIRUBIN,DIRECT 0.1 mg/dL (0.0-0.2)
[2021-12-03 14:46] LABS: BILIRUBIN,TOTAL 0.4 mg/dL (0.2-1)
[2021-12-03] MEDS ORDERED: amLODIPine BESYLATE 10 MG TABLET (FP) PO ONE (15:00)
[2021-12-03] MEDS ORDERED: DEXAMETHASONE 4 MG TABLET (FP) PO ONE (15:00)
[2021-12-03] MEDS ORDERED: BORTEZOMIB (VELCADE) 2.5 MG/ML SUB-Q INJECTION SQ ONE (15:00)
[2021-12-03] MEDS ORDERED: POTASSIUM CHLORIDE TABS 20 MEQ TABLET.ER (FP) PO ONE ×2 (15:00→15:16)
[2021-12-03 17:33] VITALS: PULSE 71; TEMP 99
[2021-12-03 17:44] VITALS: BP 176/76
[2021-12-06 06:07] LABS: FREE KAP CHN UR 105.77 mg/L (1.17-86.46); KAPPA LAMBDA RATIO URIN 8.32 (1.83-14.26)
== END 2021-12-03 16:20 | disposition home or self-care (01) ==
LOC: JONCCHEMO 13:15
PROVIDERS: ATTEND Internal Medicine Hematology & Oncology
PROC: 3E01305 Introduction of Other Antineoplastic into Subcutaneous Tissue, Percutaneous Approach (ICD-10-PCS; principal; 2021-12-03)
PROC: 3E033GC Introduction of Other Therapeutic Substance into Peripheral Vein, Percutaneous Approach (ICD-10-PCS; 2021-12-03)
PROC: 3E0337Z Introduction of Electrolytic and Water Balance Substance into Peripheral Vein, Percutaneous Approach (ICD-10-PCS; 2021-12-03)
DX: Z51.11 Encounter for antineoplastic chemotherapy (principal); C90.00 Multiple myeloma not having achieved remission
CPT/HCPCS: 36415; 80048; 80076; 82232; 83615; 83735; 83883; 85025; 96365; 96401; J9041

== ENCOUNTER 2021-12-11 13:38 | Day surgery (SDC) | payer OTHER, BC ==
[2021-12-11 14:59] LABS: EOS % 0.4 % (0-4.5); HEMATOCRIT 31.1 % (32.4-45.2); HEMOGLOBIN 10.3 GM/dL (10.7-15.3); LYMPH % 9.2 % (8-40); MCH 29.2 pg (25.7-33.7); MCHC 33.2 g/dl (32.0-36.0); MEAN CELL VOLUME 87.8 fl (80-96); MEAN PLT VOLUME 7.5 fl (7.5-11.1); MONO % 8.9 % (3.8-10.2); NEUT % 80.5 % (42.8-82.8); PLATELET COUNT 255 10^3/uL (134-434); RBC 3.54 M/mm3 (3.60-5.2); WHITE BLOOD COUNT 8.9 K/mm3 (4.0-10.0)
[2021-12-11 15:24] LABS: CALCIUM 9.1 mg/dL (8.5-10.1)
[2021-12-11 15:25] LABS: ALBUMIN 3.2 g/dl (3.4-5.0); BLOOD UREA NITROGEN 23.3 mg/dL (7-18)
[2021-12-11 15:27] LABS: BILIRUBIN,DIRECT 0.1 mg/dL (0.0-0.2)
[2021-12-11 15:29] LABS: BILIRUBIN,TOTAL 0.7 mg/dL (0.2-1); TOT PROT 6.2 g/dl (6.4-8.2)
[2021-12-11 17:39] VITALS: TEMP 98.2
[2021-12-11 17:40] VITALS: BP 152/69; PULSE 71
== END 2021-12-11 16:10 | disposition home or self-care (01) ==
LOC: JONCCHEMO 13:38
PROVIDERS: ATTEND Internal Medicine Hematology & Oncology
PROC: 3E01305 Introduction of Other Antineoplastic into Subcutaneous Tissue, Percutaneous Approach (ICD-10-PCS; principal; 2021-12-11)
PROC: 3E033GC Introduction of Other Therapeutic Substance into Peripheral Vein, Percutaneous Approach (ICD-10-PCS; 2021-12-11)
DX: Z51.11 Encounter for antineoplastic chemotherapy (principal); C90.00 Multiple myeloma not having achieved remission
CPT/HCPCS: 36415; 80048; 80076; 83615; 83735; 85025; 96361; 96365; 96401; J9041

== ENCOUNTER 2021-12-18 06:30 | Day surgery (SDC) | payer OTHER, BC ==
[2021-12-18] MEDS ORDERED: amLODIPine BESYLATE 10 MG TABLET (FP) PO ONE (10:00)
[2021-12-18] MEDS ORDERED: BORTEZOMIB (VELCADE) 2.5 MG/ML SUB-Q INJECTION SQ ONE (10:00)
[2021-12-18] MEDS ORDERED: MAGNESIUM SULFATE IN WATER 2 GM/50 ML IVPB IVPB ONE (10:00)
[2021-12-18] MEDS ORDERED: DEXAMETHASONE 4 MG TABLET (FP) PO ONE (10:00)
[2021-12-18] MEDS ORDERED: POTASSIUM CHLORIDE TABS 20 MEQ TABLET.ER (FP) PO ONE ×2 (10:00→17:06)
[2021-12-18] MEDS ORDERED: SODIUM CHLORIDE 250 ML IV ONE (10:00)
[2021-12-18 14:59] LABS: BASO % 0.4 % (0-2.0); EOS % 0.8 % (0-4.5); HEMATOCRIT 31.8 % (32.4-45.2); HEMOGLOBIN 10.5 GM/dL (10.7-15.3); LYMPH % 7.9 % (8-40); MCH 28.7 pg (25.7-33.7); MCHC 33.1 g/dl (32.0-36.0); MEAN PLT VOLUME 7.2 fl (7.5-11.1); MONO % 8.2 % (3.8-10.2); NEUT % 82.7 % (42.8-82.8); PLATELET COUNT 270 10^3/uL (134-434); RBC 3.66 M/mm3 (3.60-5.2); RDW 14.1 % (11.6-15.6); WHITE BLOOD COUNT 9.8 K/mm3 (4.0-10.0)
[2021-12-18 15:22] LABS: CALCIUM 9.4 mg/dL (8.5-10.1)
[2021-12-18 15:23] LABS: ALBUMIN 3.2 g/dl (3.4-5.0); BLOOD UREA NITROGEN 20.4 mg/dL (7-18); MAGNESIUM 2.2 mg/dL (1.8-2.4)
[2021-12-18 15:25] LABS: BILIRUBIN,DIRECT 0.1 mg/dL (0.0-0.2); CREATININE 0.9 mg/dL (0.55-1.3); URIC ACID 4.8 mg/dL (2.6-7.2)
[2021-12-18 15:27] LABS: BILIRUBIN,TOTAL 0.5 mg/dL (0.2-1); TOT PROT 6.4 g/dl (6.4-8.2)
[2021-12-18] MEDS ORDERED: POTASSIUM CHLORIDE 40 MEQ in SODIUM CHLORIDE 0.45% 500 ML IVPB ONE (15:45)
[2021-12-18 17:46] VITALS: TEMP 98.2
[2021-12-18 18:38] VITALS: BP 176/75; PULSE 74
[2021-12-20 18:07] LABS: FREE KAPPA,SERUM 324.3 mg/L (3.3-19.4)
[2021-12-21 06:06] LABS: FREE KAP CHN UR 86.64 mg/L (1.17-86.46); KAPPA LAMBDA RATIO URIN 8.12 (1.83-14.26)
[2021-12-21 07:07] LABS: BETA-2-MICROGLOBULIN 2.4 mg/L (0.6-2.4)
== END 2021-12-18 18:45 | disposition home or self-care (01) ==
LOC: JONCCHEMO 06:30
PROVIDERS: ATTEND Internal Medicine Hematology & Oncology
PROC: 3E01305 Introduction of Other Antineoplastic into Subcutaneous Tissue, Percutaneous Approach (ICD-10-PCS; principal; 2021-12-18)
PROC: 3E033GC Introduction of Other Therapeutic Substance into Peripheral Vein, Percutaneous Approach (ICD-10-PCS; 2021-12-18)
DX: Z51.11 Encounter for antineoplastic chemotherapy (principal); C90.00 Multiple myeloma not having achieved remission
CPT/HCPCS: 36415; 80048; 80076; 82232; 82784; 83615; 83735; 83883; 84155; 84165; 84550; 85025; 86335; 96365; 96366; 96401; J9041

== ENCOUNTER 2021-12-25 07:28 | Day surgery (SDC) | payer OTHER, BC ==
[2021-12-25] MEDS ORDERED: DEXAMETHASONE 4 MG TABLET (FP) PO ONE (10:00)
[2021-12-25] MEDS ORDERED: amLODIPine BESYLATE 10 MG TABLET (FP) PO ONE (10:00)
[2021-12-25] MEDS ORDERED: SODIUM CHLORIDE 250 ML IV ONE (10:00)
[2021-12-25] MEDS ORDERED: POTASSIUM CHLORIDE TABS 20 MEQ TABLET.ER (FP) PO ONE (10:00)
[2021-12-25] MEDS ORDERED: MAGNESIUM SULFATE IN WATER 2 GM/50 ML IVPB IVPB ONE (10:00)
[2021-12-25] MEDS ORDERED: BORTEZOMIB (VELCADE) 2.5 MG/ML SUB-Q INJECTION SQ ONE (10:30)
[2021-12-25 14:02] LABS: BASO % 0.4 % (0-2.0); EOS % 0.8 % (0-4.5); HEMATOCRIT 32.1 % (32.4-45.2); HEMOGLOBIN 10.6 GM/dL (10.7-15.3); LYMPH % 12.8 % (8-40); MCHC 33.1 g/dl (32.0-36.0); MEAN CELL VOLUME 87.9 fl (80-96); MEAN PLT VOLUME 7.7 fl (7.5-11.1); MONO % 8.3 % (3.8-10.2); NEUT % 77.7 % (42.8-82.8); PLATELET COUNT 248 10^3/uL (134-434); RBC 3.66 M/mm3 (3.60-5.2); RDW 14.2 % (11.6-15.6); WHITE BLOOD COUNT 8.2 K/mm3 (4.0-10.0)
[2021-12-25 14:23] LABS: CALCIUM 9.1 mg/dL (8.5-10.1)
[2021-12-25 14:25] LABS: ALBUMIN 3.2 g/dl (3.4-5.0); BLOOD UREA NITROGEN 29.3 mg/dL (7-18); MAGNESIUM 2.2 mg/dL (1.8-2.4)
[2021-12-25 14:27] LABS: BILIRUBIN,DIRECT 0.1 mg/dL (0.0-0.2); CREATININE 1.1 mg/dL (0.55-1.3)
[2021-12-25 14:29] LABS: BILIRUBIN,TOTAL 0.5 mg/dL (0.2-1); TOT PROT 6.2 g/dl (6.4-8.2)
[2021-12-25] MEDS ORDERED: INSULIN (NOVOLOG) ASPART 100 UNITS/ML 10ML VIAL SQ ONE (14:36)
[2021-12-25 16:46] VITALS: TEMP 98.5
[2021-12-25 16:57] VITALS: BP 122/71; PULSE 88
== END 2021-12-25 16:20 | disposition home or self-care (01) ==
LOC: JONCCHEMO 07:28
PROVIDERS: ATTEND Internal Medicine Hematology & Oncology
PROC: 3E01305 Introduction of Other Antineoplastic into Subcutaneous Tissue, Percutaneous Approach (ICD-10-PCS; principal; 2021-12-25)
PROC: 3E033GC Introduction of Other Therapeutic Substance into Peripheral Vein, Percutaneous Approach (ICD-10-PCS; 2021-12-25)
DX: Z51.11 Encounter for antineoplastic chemotherapy (principal); C90.00 Multiple myeloma not having achieved remission
CPT/HCPCS: 36415; 80048; 80076; 83615; 83735; 85025; 96365; 96368; 96401; J9041

== ENCOUNTER 2022-01-08 06:48 | Day surgery (SDC) | payer OTHER, BC ==
[2022-01-08] MEDS ORDERED: SODIUM CHLORIDE 250 ML IV ONE (09:00)
[2022-01-08] MEDS ORDERED: POTASSIUM CHLORIDE TABS 20 MEQ TABLET.ER (FP) PO ONE ×2 (09:30→13:44)
[2022-01-08] MEDS ORDERED: MAGNESIUM SULFATE IN WATER 2 GM/50 ML IVPB IVPB ONE (09:30)
[2022-01-08] MEDS ORDERED: BORTEZOMIB (VELCADE) 2.5 MG/ML SUB-Q INJECTION SQ ONE (10:00)
[2022-01-08] MEDS ORDERED: amLODIPine BESYLATE 10 MG TABLET (FP) PO ONE (10:00)
[2022-01-08] MEDS ORDERED: DEXAMETHASONE 4 MG TABLET (FP) PO ONE (10:00)
[2022-01-08 13:06] LABS: BASO % 0.5 % (0-2.0); EOS % 0.8 % (0-4.5); HEMATOCRIT 31.4 % (32.4-45.2); HEMOGLOBIN 10.7 GM/dL (10.7-15.3); MCH 29.5 pg (25.7-33.7); MCHC 34.1 g/dl (32.0-36.0); MEAN CELL VOLUME 86.6 fl (80-96); MEAN PLT VOLUME 6.7 fl (7.5-11.1); MONO % 8.5 % (3.8-10.2); NEUT % 78.2 % (42.8-82.8); PLATELET COUNT 253 10^3/uL (134-434); RBC 3.62 M/mm3 (3.60-5.2); WHITE BLOOD COUNT 8.3 K/mm3 (4.0-10.0)
[2022-01-08 13:32] LABS: CALCIUM 9.6 mg/dL (8.5-10.1)
[2022-01-08 13:33] LABS: ALBUMIN 3.3 g/dl (3.4-5.0); BLOOD UREA NITROGEN 23.6 mg/dL (7-18)
[2022-01-08 13:35] LABS: BILIRUBIN,DIRECT 0.1 mg/dL (0.0-0.2); CREATININE 1.2 mg/dL (0.55-1.3); URIC ACID 4.7 mg/dL (2.6-7.2)
[2022-01-08 13:37] LABS: BILIRUBIN,TOTAL 0.6 mg/dL (0.2-1); TOT PROT 6.3 g/dl (6.4-8.2)
[2022-01-08 15:23] VITALS: BP 157/79; PULSE 80; TEMP 98.3
== END 2022-01-08 15:26 | disposition home or self-care (01) ==
LOC: JONCCHEMO 06:48
PROVIDERS: ATTEND Internal Medicine Hematology & Oncology
PROC: 3E01305 Introduction of Other Antineoplastic into Subcutaneous Tissue, Percutaneous Approach (ICD-10-PCS; principal; 2022-01-08)
PROC: 3E033GC Introduction of Other Therapeutic Substance into Peripheral Vein, Percutaneous Approach (ICD-10-PCS; 2022-01-08)
PROC: 3E0337Z Introduction of Electrolytic and Water Balance Substance into Peripheral Vein, Percutaneous Approach (ICD-10-PCS; 2022-01-08)
DX: Z51.11 Encounter for antineoplastic chemotherapy (principal); C90.00 Multiple myeloma not having achieved remission
CPT/HCPCS: 36415; 80048; 80076; 83615; 83735; 84550; 85025; 96365; 96401; J9041

== ENCOUNTER 2022-01-15 07:38 | Day surgery (SDC) | payer OTHER, BC ==
[2022-01-15] MEDS ORDERED: SODIUM CHLORIDE 250 ML IV ONE (09:00)
[2022-01-15] MEDS ORDERED: MAGNESIUM SULFATE IN WATER 2 GM/50 ML IVPB IVPB ONE (09:30)
[2022-01-15] MEDS ORDERED: amLODIPine BESYLATE 10 MG TABLET (FP) PO ONE (09:30)
[2022-01-15] MEDS ORDERED: DEXAMETHASONE 4 MG TABLET (FP) PO ONE (09:30)
[2022-01-15] MEDS ORDERED: POTASSIUM CHLORIDE TABS 20 MEQ TABLET.ER (FP) PO ONE (09:30)
[2022-01-15] MEDS ORDERED: BORTEZOMIB (VELCADE) 2.5 MG/ML SUB-Q INJECTION SQ ONE (10:00)
[2022-01-15 15:03] LABS: BASO % 0.3 % (0-2.0); EOS % 0.7 % (0-4.5); HEMATOCRIT 32.6 % (32.4-45.2); HEMOGLOBIN 10.8 GM/dL (10.7-15.3); LYMPH % 10.1 % (8-40); MCH 29.2 pg (25.7-33.7); MCHC 33.1 g/dl (32.0-36.0); MEAN CELL VOLUME 88.2 fl (80-96); MONO % 11.7 % (3.8-10.2); NEUT % 77.2 % (42.8-82.8); PLATELET COUNT 223 10^3/uL (134-434); RBC 3.69 M/mm3 (3.60-5.2); RDW 14.4 % (11.6-15.6); WHITE BLOOD COUNT 6.6 K/mm3 (4.0-10.0)
[2022-01-15 15:47] LABS: ALBUMIN 3.2 g/dl (3.4-5.0); BLOOD UREA NITROGEN 20.4 mg/dL (7-18); CALCIUM 9.9 mg/dL (8.5-10.1); MAGNESIUM 2.2 mg/dL (1.8-2.4)
[2022-01-15 15:49] LABS: BILIRUBIN,DIRECT 0.2 mg/dL (0.0-0.2); URIC ACID 3.9 mg/dL (2.6-7.2)
[2022-01-15 15:50] VITALS: TEMP 98.2
[2022-01-15 15:51] LABS: BILIRUBIN,TOTAL 0.3 mg/dL (0.2-1); TOT PROT 6.2 g/dl (6.4-8.2)
[2022-01-15] MEDS ORDERED: INSULIN (NOVOLOG) ASPART 100 UNITS/ML 10ML VIAL SQ ONE (15:53)
[2022-01-15 17:59] VITALS: BP 176/81; PULSE 70
[2022-01-17 18:07] LABS: FREE KAPPA,SERUM 384.3 mg/L (3.3-19.4)
[2022-01-18 06:08] LABS: FREE KAP CHN UR 159.2 mg/L (1.17-86.46); KAPPA LAMBDA RATIO URIN 9.04 (1.83-14.26)
[2022-01-18 08:08] LABS: BETA-2-MICROGLOBULIN 2.7 mg/L (0.6-2.4)
== END 2022-01-15 17:30 | disposition home or self-care (01) ==
LOC: JONCCHEMO 07:38
PROVIDERS: ATTEND Internal Medicine Hematology & Oncology
PROC: 3E013GC Introduction of Other Therapeutic Substance into Subcutaneous Tissue, Percutaneous Approach (ICD-10-PCS; principal; 2022-01-15)
PROC: 3E033GC Introduction of Other Therapeutic Substance into Peripheral Vein, Percutaneous Approach (ICD-10-PCS; 2022-01-15)
PROC: 3E013GC Introduction of Other Therapeutic Substance into Subcutaneous Tissue, Percutaneous Approach (ICD-10-PCS; 2022-01-15)
DX: Z51.11 Encounter for antineoplastic chemotherapy (principal); C90.00 Multiple myeloma not having achieved remission; E11.9 Type 2 diabetes mellitus without complications
CPT/HCPCS: 36415; 80048; 80076; 82232; 82784; 83615; 83735; 83883; 84155; 84165; 84550; 85025; 86335; 96365; 96372; 96401; J9041

== ENCOUNTER 2022-01-29 06:53 | Day surgery (SDC) | payer OTHER, BC ==
[2022-01-29] MEDS ORDERED: SODIUM CHLORIDE 250 ML IV ONE (09:00)
[2022-01-29] MEDS ORDERED: DEXAMETHASONE 4 MG TABLET (FP) PO ONE (09:30)
[2022-01-29] MEDS ORDERED: MAGNESIUM SULFATE IN WATER 2 GM/50 ML IVPB IVPB ONE (09:30)
[2022-01-29] MEDS ORDERED: POTASSIUM CHLORIDE TABS 20 MEQ TABLET.ER (FP) PO ONE ×2 (09:30→14:30)
[2022-01-29] MEDS ORDERED: amLODIPine BESYLATE 10 MG TABLET (FP) PO ONE (09:30)
[2022-01-29] MEDS ORDERED: BORTEZOMIB (VELCADE) 2.5 MG/ML SUB-Q INJECTION SQ ONE (10:00)
[2022-01-29 13:28] LABS: BASO % 0.6 % (0-2.0); EOS % 0.7 % (0-4.5); HEMATOCRIT 32.2 % (32.4-45.2); HEMOGLOBIN 10.7 GM/dL (10.7-15.3); LYMPH % 9.5 % (8-40); MCH 28.9 pg (25.7-33.7); MCHC 33.1 g/dl (32.0-36.0); MEAN CELL VOLUME 87.3 fl (80-96); MEAN PLT VOLUME 7.5 fl (7.5-11.1); MONO % 8.6 % (3.8-10.2); NEUT % 80.6 % (42.8-82.8); PLATELET COUNT 260 10^3/uL (134-434); RBC 3.69 M/mm3 (3.60-5.2); RDW 14.2 % (11.6-15.6); WHITE BLOOD COUNT 8.4 K/mm3 (4.0-10.0)
[2022-01-29 13:48] LABS: ALBUMIN 3.2 g/dl (3.4-5.0); CALCIUM 9.2 mg/dL (8.5-10.1)
[2022-01-29 13:49] LABS: BLOOD UREA NITROGEN 16.4 mg/dL (7-18)
[2022-01-29 13:50] LABS: URIC ACID 4.1 mg/dL (2.6-7.2)
[2022-01-29 13:51] LABS: BILIRUBIN,DIRECT 0.1 mg/dL (0.0-0.2)
[2022-01-29 13:52] LABS: CREATININE 1.1 mg/dL (0.55-1.3)
[2022-01-29 13:53] LABS: BILIRUBIN,TOTAL 0.6 mg/dL (0.2-1); TOT PROT 6.5 g/dl (6.4-8.2)
[2022-01-29] MEDS ORDERED: INSULIN (NOVOLOG) ASPART 100 UNITS/ML 10ML VIAL SQ ONE (14:30)
[2022-01-29 15:09] VITALS: RESP 18; TEMP 98.2
[2022-01-30 08:25] VITALS: BP 117/75; PULSE 68
== END 2022-01-29 16:52 | disposition home or self-care (01) ==
LOC: JONCCHEMO 06:53
PROVIDERS: ATTEND Internal Medicine Hematology & Oncology
PROC: 3E033GC Introduction of Other Therapeutic Substance into Peripheral Vein, Percutaneous Approach (ICD-10-PCS; principal; 2022-01-29)
PROC: 3E013GC Introduction of Other Therapeutic Substance into Subcutaneous Tissue, Percutaneous Approach (ICD-10-PCS; 2022-01-29)
DX: Z51.11 Encounter for antineoplastic chemotherapy (principal); C90.00 Multiple myeloma not having achieved remission; C79.51 Secondary malignant neoplasm of bone; R60.0 Localized edema; E11.9 Type 2 diabetes mellitus without complications; I10 Essential (primary) hypertension; Z79.84 Long term (current) use of oral hypoglycemic drugs
CPT/HCPCS: 36415; 80048; 80076; 83615; 83735; 84550; 85025; 93970-TC; 96365; 96372; J9041

== ENCOUNTER 2022-02-05 13:54 | Day surgery (SDC) | payer OTHER, BC ==
[~2022-02-05 13:54] MED LIST changes: +LOPERAMIDE HCL 2 MG CAPSULE PO ONE
[2022-02-05 14:21] LABS: BASO % 0.4 % (0-2.0); EOS % 0.8 % (0-4.5); HEMATOCRIT 33.6 % (32.4-45.2); HEMOGLOBIN 11.3 GM/dL (10.7-15.3); MCH 29.3 pg (25.7-33.7); MCHC 33.6 g/dl (32.0-36.0); MEAN CELL VOLUME 87.2 fl (80-96); MEAN PLT VOLUME 7.4 fl (7.5-11.1); MONO % 10.9 % (3.8-10.2); NEUT % 75.9 % (42.8-82.8); PLATELET COUNT 215 10^3/uL (134-434); RBC 3.86 M/mm3 (3.60-5.2); RDW 14.5 % (11.6-15.6); WHITE BLOOD COUNT 7.6 K/mm3 (4.0-10.0)
[2022-02-05 14:53] VITALS: RESP 20
[2022-02-05 14:54] LABS: ALBUMIN 3.4 g/dl (3.4-5.0); ANION GAP 9 MMOL/L (8-16); BLOOD UREA NITROGEN 24.6 mg/dL (7-18); CALCIUM 9.6 mg/dL (8.5-10.1); CHLORIDE 98 mmol/L (98-107); CO2 33 mmol/L (21-32); GLUCOSE,RANDOM 219 mg/dL (74-106); SODIUM 140 mmol/L (136-145)
[2022-02-05 14:56] LABS: BILIRUBIN,DIRECT < 0.1 mg/dL (0.0-0.2); CREATININE 1.2 mg/dL (0.55-1.3); SGOT/AST 10 U/L (15-37); SGPT/ALT 17 U/L (13-61)
[2022-02-05 14:58] LABS: BILIRUBIN,TOTAL 0.6 mg/dL (0.2-1); TOT PROT 6.5 g/dl (6.4-8.2)
[2022-02-05 14:59] LABS: ALK PHOS 83 U/L (45-117)
[2022-02-05] MEDS ORDERED: POTASSIUM CHLORIDE TABS 20 MEQ TABLET.ER (FP) PO ONE (15:01)
[2022-02-05 15:18] LABS: URIC ACID 4.3 mg/dL (2.6-7.2)
[2022-02-05 15:20] LABS: LDH 159 U/L (84-246)
[2022-02-05 15:39] VITALS: TEMP 98.2
[2022-02-05 16:09] VITALS: PULSE 78
[2022-02-05 16:23] VITALS: BP 178/75
[2022-02-05] MEDS ORDERED: amLODIPine BESYLATE 2.5 MG TABLET (FP) PO ONE (16:59)
== END 2022-02-05 17:06 | disposition home or self-care (01) ==
LOC: JONCCHEMO 13:54
PROVIDERS: ATTEND Internal Medicine Hematology & Oncology
PROC: 3E01305 Introduction of Other Antineoplastic into Subcutaneous Tissue, Percutaneous Approach (ICD-10-PCS; principal; 2022-02-05)
PROC: 3E033GC Introduction of Other Therapeutic Substance into Peripheral Vein, Percutaneous Approach (ICD-10-PCS; 2022-02-05)
DX: Z51.11 Encounter for antineoplastic chemotherapy (principal); C90.00 Multiple myeloma not having achieved remission; C79.51 Secondary malignant neoplasm of bone; E11.9 Type 2 diabetes mellitus without complications
CPT/HCPCS: 36415; 80048; 80076; 83615; 83735; 84550; 85025; 96365; 96401; J9041

== ENCOUNTER 2022-02-19 13:18 | Day surgery (SDC) | payer OTHER, BC ==
[~2022-02-19 13:18] MED LIST changes: -BORTEZOMIB (VELCADE) 2.5 MG/ML SUB-Q INJECTION SQ ONE; +BORTEZOMIB 2.5 MG/ML SUB-Q INJECTION SQ ONE; -LOPERAMIDE HCL 2 MG CAPSULE PO ONE
[2022-02-19 14:11] LABS: BASO % 0.6 % (0-2.0); EOS % 0.3 % (0-4.5); HEMATOCRIT 31.5 % (32.4-45.2); HEMOGLOBIN 10.9 GM/dL (10.7-15.3); LYMPH % 10.5 % (8-40); MCH 30.1 pg (25.7-33.7); MCHC 34.5 g/dl (32.0-36.0); MEAN CELL VOLUME 87.2 fl (80-96); MEAN PLT VOLUME 6.6 fl (7.5-11.1); MONO % 8.3 % (3.8-10.2); NEUT % 80.3 % (42.8-82.8); PLATELET COUNT 250 10^3/uL (134-434); RBC 3.62 M/mm3 (3.60-5.2); RDW 14.7 % (11.6-15.6); WHITE BLOOD COUNT 7.3 K/mm3 (4.0-10.0)
[2022-02-19 14:33] LABS: MAGNESIUM 1.7 mg/dL (1.8-2.4)
[2022-02-19 14:34] LABS: ALBUMIN 3.3 g/dl (3.4-5.0)
[2022-02-19 14:36] LABS: BILIRUBIN,DIRECT 0.1 mg/dL (0.0-0.2); URIC ACID 3.9 mg/dL (2.6-7.2)
[2022-02-19 14:38] LABS: TOT PROT 6.5 g/dl (6.4-8.2)
[2022-02-19 14:39] LABS: BILIRUBIN,TOTAL 0.4 mg/dL (0.2-1)
[2022-02-19 16:58] VITALS: RESP 20; TEMP 98.2
[2022-02-19 18:42] VITALS: BP 159/80; PULSE 74
== END 2022-02-19 18:43 | disposition home or self-care (01) ==
LOC: JONCCHEMO 13:18
PROVIDERS: ATTEND Internal Medicine Hematology & Oncology
PROC: 3E0T3GC Introduction of Other Therapeutic Substance into Peripheral Nerves and Plexi, Percutaneous Approach (ICD-10-PCS; principal; 2022-02-19)
DX: Z51.11 Encounter for antineoplastic chemotherapy (principal); C90.00 Multiple myeloma not having achieved remission; C79.51 Secondary malignant neoplasm of bone; E11.9 Type 2 diabetes mellitus without complications
CPT/HCPCS: 36415; 80048; 80076; 83615; 83735; 84550; 85025; 96365; 96401; J9044

== ENCOUNTER 2022-03-12 07:55 | Day surgery (SDC) | payer OTHER, BC ==
[2022-03-12] MEDS ORDERED: SODIUM CHLORIDE 250 ML IV ONE (09:00)
[2022-03-12] MEDS ORDERED: MAGNESIUM SULFATE IN WATER 2 GM/50 ML IVPB IVPB ONE (09:30)
[2022-03-12] MEDS ORDERED: POTASSIUM CHLORIDE TABS 20 MEQ TABLET.ER (FP) PO ONE ×2 (09:30→16:52)
[2022-03-12] MEDS ORDERED: BORTEZOMIB 2.5 MG/ML SUB-Q INJECTION SQ ONE (10:00)
[2022-03-12] MEDS ORDERED: DEXAMETHASONE 4 MG TABLET (FP) PO ONE (10:00)
[2022-03-12] MEDS ORDERED: amLODIPine BESYLATE 10 MG TABLET (FP) PO ONE (10:00)
[2022-03-12 16:03] LABS: BASO % 0.5 % (0-2.0); EOS % 0.3 % (0-4.5); HEMATOCRIT 33.7 % (32.4-45.2); HEMOGLOBIN 11.5 GM/dL (10.7-15.3); LYMPH % 12.1 % (8-40); MCHC 34.2 g/dl (32.0-36.0); MEAN CELL VOLUME 87.9 fl (80-96); MEAN PLT VOLUME 7.3 fl (7.5-11.1); NEUT % 79.1 % (42.8-82.8); PLATELET COUNT 210 10^3/uL (134-434); RBC 3.84 M/mm3 (3.60-5.2); RDW 13.4 % (11.6-15.6); WHITE BLOOD COUNT 6.6 K/mm3 (4.0-10.0)
[2022-03-12 16:28] LABS: MAGNESIUM 1.7 mg/dL (1.8-2.4)
[2022-03-12 16:29] LABS: BLOOD UREA NITROGEN 26.2 mg/dL (7-18); CALCIUM 9.9 mg/dL (8.5-10.1)
[2022-03-12 16:30] LABS: ALBUMIN 3.3 g/dl (3.4-5.0)
[2022-03-12 16:31] LABS: CREATININE 1.3 mg/dL (0.55-1.3)
[2022-03-12 16:32] LABS: BILIRUBIN,DIRECT 0.1 mg/dL (0.0-0.2)
[2022-03-12 16:33] LABS: TOT PROT 6.6 g/dl (6.4-8.2)
[2022-03-12 16:34] LABS: BILIRUBIN,TOTAL 0.4 mg/dL (0.2-1)
[2022-03-12] MEDS ORDERED: amLODIPine BESYLATE 5 MG TABLET (FP) PO ONE (16:51)
[2022-03-12] MEDS ORDERED: Insulin (LOG) Aspart 100 UNITS/ML VIAL SQ SCH (17:00)
[2022-03-12 18:28] VITALS: TEMP 97.9
[2022-03-12 18:37] VITALS: RESP 18
[2022-03-12 18:40] VITALS: PULSE 74
[2022-03-12 18:41] VITALS: BP 200/100
== END 2022-03-12 18:00 | disposition home or self-care (01) ==
LOC: JONCCHEMO 07:55
PROVIDERS: ATTEND Internal Medicine Hematology & Oncology
PROC: 3E01305 Introduction of Other Antineoplastic into Subcutaneous Tissue, Percutaneous Approach (ICD-10-PCS; principal; 2022-03-12)
PROC: 3E033GC Introduction of Other Therapeutic Substance into Peripheral Vein, Percutaneous Approach (ICD-10-PCS; 2022-03-12)
DX: Z51.11 Encounter for antineoplastic chemotherapy (principal); C90.00 Multiple myeloma not having achieved remission; C79.51 Secondary malignant neoplasm of bone; E11.9 Type 2 diabetes mellitus without complications; Z79.4 Long term (current) use of insulin
CPT/HCPCS: 36415; 80048; 80076; 83615; 83735; 84550; 85025; 96365; 96401; J9044

== ENCOUNTER 2022-03-12 18:01 | Observation (INO) | payer OTHER, BC ==
[2022-03-12] MEDS ORDERED: amLODIPine BESYLATE 5 MG TABLET (FP) PO ONE (18:48)
[2022-03-12 19:24] LABS: VENOUS O2 SATURATION 34.9 % (70-80); VENOUS PCO2 56.8 mmHg (38-52); VENOUS PH 7.389 (7.310-7.410)
[2022-03-12 19:25] LABS: BASO % 0.5 % (0-2.0); EOS % 0.3 % (0-4.5); HEMATOCRIT 33.4 % (32.4-45.2); HEMOGLOBIN 11.6 GM/dL (10.7-15.3); LYMPH % 6.9 % (8-40); MCH 30.6 pg (25.7-33.7); MCHC 34.7 g/dl (32.0-36.0); MEAN CELL VOLUME 88.1 fl (80-96); MEAN PLT VOLUME 7.3 fl (7.5-11.1); MONO % 4.3 % (3.8-10.2); PLATELET COUNT 200 10^3/uL (134-434); RDW 13.6 % (11.6-15.6)
[2022-03-12 19:27] LABS: EPI CELLS 6 /uL (0-25.1); HYALINE CASTS 0 /uL (0-3.1); PH,URINE 7.5 (5.0-8.0); URINE APPEARANCE CLEAR; URINE BACTERIA 61 /uL (0-1359); URINE BILIRUBIN NEGATIVE (NEGATIVE); URINE COLOR YELLOW; URINE GLUCOSE (UA) 3+ (NEGATIVE); URINE KETONE NEGATIVE (NEGATIVE); URINE LEUK ESTERASE TRACE (NEGATIVE); URINE NITRITE NEGATIVE (NEGATIVE); URINE PROTEIN NEGATIVE (NEGATIVE); URINE RBC 21 /uL (0-23.9); URINE UROBILINOGEN 0.2 mg/dL (0.2-1.0); URINE WBC 46 /uL (0-25.8)
[2022-03-12 19:36] LABS: INR 0.91 (0.83-1.09); PROTHROMBIN TIME (PATIENT) 10.5 SEC (9.7-13.0)
[2022-03-12 19:38] LABS: ACTIVATED PTT 26.1 SECONDS (25.2-36.5)
[2022-03-12 19:48] LABS: ALBUMIN 3.2 g/dl (3.4-5.0); BLOOD UREA NITROGEN 23.2 mg/dL (7-18)
[2022-03-12 19:51] LABS: CREATININE 1.3 mg/dL (0.55-1.3)
[2022-03-12 19:53] LABS: BILIRUBIN,TOTAL 0.3 mg/dL (0.2-1); TOT PROT 6.6 g/dl (6.4-8.2)
[2022-03-12] MEDS ORDERED: amLODIPine BESYLATE 5 MG TABLET (FP) ONE (20:11)
[2022-03-12 21:16] LABS: MAGNESIUM 2.6 mg/dL (1.8-2.4)
[2022-03-12] MEDS ORDERED: POTASSIUM CHLORIDE TABS 20 MEQ TABLET.ER (FP) PO ONE (21:22)
[2022-03-12] MEDS ORDERED: POTASSIUM CHLORIDE TABS 10 MEQ TABLET.ER (FP) ONE (21:26)
[2022-03-12] MEDS ORDERED: KCL 10 MEQ IVPB 20 MEQ/200 ML INFUS.BAG IVPB ONE (21:43)
[2022-03-12] MEDS: KCL 10 MEQ IVPB 10 MEQ/100 ML INFUS.BAG IVPB SCH (21:51)
[2022-03-13] MEDS: KCL 10 MEQ IVPB 10 MEQ/100 ML INFUS.BAG IVPB SCH ×4 (00:04→07:21)
[2022-03-13] MEDS ORDERED: POTASSIUM CHLORIDE ORAL LIQUID 20 MEQ/15 ML PO ONE (02:48)
[2022-03-13] MEDS ORDERED: KCL 10 MEQ IVPB 10 MEQ/100 ML INFUS.BAG IVPB ONE ×3 (03:45→07:16)
[2022-03-13] MEDS ORDERED: POTASSIUM CHLORIDE ORAL LIQUID 20 MEQ/15 ML ONE (03:45)
[2022-03-13] MEDS ORDERED: amLODIPine BESYLATE 5 MG TABLET (FP) PO SCH (07:00)
[2022-03-13] MEDS ORDERED: LISINOPRIL 10 MG TABLET PO SCH (07:00)
[2022-03-13] MEDS ORDERED: INSULIN (NOVOLOG) ASPART 100 UNITS/ML 10ML VIAL SQ ONE (07:17)
[2022-03-13 07:32] LABS: HEMATOCRIT 34.9 % (32.4-45.2); HEMOGLOBIN 11.8 GM/dL (10.7-15.3); MCH 29.8 pg (25.7-33.7); MCHC 33.9 g/dl (32.0-36.0); MEAN CELL VOLUME 87.8 fl (80-96); PLATELET COUNT 207 10^3/uL (134-434); RBC 3.98 M/mm3 (3.60-5.2); RDW 13.8 % (11.6-15.6); WHITE BLOOD COUNT 12.3 K/mm3 (4.0-10.0)
[2022-03-13] MEDS: INSULIN SLIDING SCALE (NOVOLOG) 1 VIAL SQ SCH ×3 (07:46→17:02)
[2022-03-13 07:54] LABS: CALCIUM 9.1 mg/dL (8.5-10.1)
[2022-03-13 07:55] LABS: ALBUMIN 3.2 g/dl (3.4-5.0); BLOOD UREA NITROGEN 26.7 mg/dL (7-18); MAGNESIUM 1.9 mg/dL (1.8-2.4)
[2022-03-13 07:58] LABS: CREATININE 1.1 mg/dL (0.55-1.3)
[2022-03-13 08:00] LABS: BILIRUBIN,TOTAL 0.6 mg/dL (0.2-1); TOT PROT 6.7 g/dl (6.4-8.2)
[2022-03-13] MEDS ORDERED: SODIUM CHLORIDE 1,000 ML IV STA (08:02)
[2022-03-13] MEDS ORDERED: CALCIUM GLUCONATE 10% - 1,000 MG/10 ML VIAL IVPB ONE (08:07)
[2022-03-13] MEDS ORDERED: CALCIUM GLUCONATE 10% - 1,000 MG/10 ML VIAL ONE (08:13)
[2022-03-13 08:47] LABS: ANISOCYTOSIS 0; HELMET CELLS 0; HOWELL-JOLLY BODIES 0; MACROCYTOSIS 0; OVALOCYTE 0; ROULEAU 0; SICKELED CELLS 0; TARGET CELLS 0; TEAR DROP CELLS 0; TOXIC GRANULATION 0
[2022-03-13] MEDS ORDERED: amLODIPine BESYLATE 5 MG TABLET (FP) ONE (08:57)
[2022-03-13] MEDS ORDERED: LISINOPRIL 10 MG TABLET ONE (08:57)
[2022-03-13] MEDS ORDERED: ENOXAPARIN NA (PORCINE) 40 MG/0.4 ML DISP.SYRIN SQ ONE (08:58)
[2022-03-13] MEDS: LISINOPRIL 10 MG TABLET PO SCH (09:04)
[2022-03-13] MEDS: amLODIPine BESYLATE 5 MG TABLET (FP) PO SCH (09:04)
[2022-03-13] MEDS: ENOXAPARIN NA (PORCINE) 40 MG/0.4 ML DISP.SYRIN SQ SCH (09:04)
[2022-03-13] MEDS ORDERED: NAPH,MB-DB/K PH,MBDB POWDER PACKET PO ONE (12:57)
[2022-03-13] MEDS ORDERED: NAPH,MB-DB/K PH,MBDB POWDER PACKET ONE (13:56)
[2022-03-13] MEDS ORDERED: ATORVASTATIN CA 40 MG TABLET (FP) ONE (23:01)
[2022-03-13] MEDS: INSULIN (LEVEMIR) 100 UNITS/ML UNITS SQ SCH (23:06)
[2022-03-13] MEDS: ATORVASTATIN CA 40 MG TABLET (FP) PO SCH (23:07)
[2022-03-14 02:31] VITALS: BMI 37.3
[2022-03-14] MEDS: LISINOPRIL 10 MG TABLET PO SCH (06:49)
[2022-03-14] MEDS: amLODIPine BESYLATE 5 MG TABLET (FP) PO SCH (06:50)
[2022-03-14] MEDS: INSULIN (LEVEMIR) 100 UNITS/ML UNITS SQ SCH ×2 (06:54→22:46)
[2022-03-14] MEDS: INSULIN SLIDING SCALE (NOVOLOG) 1 VIAL SQ SCH ×3 (06:56→16:47)
[2022-03-14] MEDS ORDERED: Insulin (LOG) Aspart 100 UNITS/ML VIAL SQ SCH ×2 (07:00→11:00)
[2022-03-14 09:09] LABS: HEMATOCRIT 33.4 % (32.4-45.2); HEMOGLOBIN 10.9 GM/dL (10.7-15.3); MCHC 32.7 g/dl (32.0-36.0); MEAN CELL VOLUME 88.6 fl (80-96); MEAN PLT VOLUME 7.7 fl (7.5-11.1); PLATELET COUNT 231 10^3/uL (134-434); RBC 3.77 M/mm3 (3.60-5.2); RDW 13.8 % (11.6-15.6); WHITE BLOOD COUNT 12.4 K/mm3 (4.0-10.0)
[2022-03-14 09:15] LABS: MAGNESIUM 1.8 mg/dL (1.8-2.4)
[2022-03-14 09:16] LABS: ALBUMIN 2.8 g/dl (3.4-5.0)
[2022-03-14 09:18] LABS: PHOSPHOROUS 2.1 mg/dL (2.5-4.9)
[2022-03-14 09:19] LABS: CREATININE 1.1 mg/dL (0.55-1.3)
[2022-03-14 09:20] LABS: BILIRUBIN,TOTAL 0.4 mg/dL (0.2-1)
[2022-03-14] MEDS ORDERED: POTASSIUM CHLORIDE TABS 20 MEQ TABLET.ER (FP) PO ONE (09:23)
[2022-03-14] MEDS ORDERED: NAPH,MB-DB/K PH,MBDB POWDER PACKET PO ONE (09:23)
[2022-03-14] MEDS: ENOXAPARIN NA (PORCINE) 40 MG/0.4 ML DISP.SYRIN SQ SCH (10:22)
[2022-03-14] MEDS: ASPIRIN COATED 81 MG TABLET.EC PO SCH (10:22)
[2022-03-14] MEDS: Insulin (LOG) Aspart 100 UNITS/ML VIAL SQ SCH ×2 (11:52→16:47)
[2022-03-14] MEDS ORDERED: INSULIN (LEVEMIR) 100 UNITS/ML UNITS SQ SCH (22:00)
[2022-03-14] MEDS: ATORVASTATIN CA 40 MG TABLET (FP) PO SCH (22:32)
[2022-03-15] MEDS: INSULIN (LEVEMIR) 100 UNITS/ML UNITS SQ SCH ×2 (06:33→21:40)
[2022-03-15] MEDS: INSULIN SLIDING SCALE (NOVOLOG) 1 VIAL SQ SCH ×3 (06:34→17:14)
[2022-03-15] MEDS: LISINOPRIL 10 MG TABLET PO SCH (06:34)
[2022-03-15] MEDS: amLODIPine BESYLATE 5 MG TABLET (FP) PO SCH (06:34)
[2022-03-15] MEDS: Insulin (LOG) Aspart 100 UNITS/ML VIAL SQ SCH ×3 (06:35→17:14)
[2022-03-15 08:19] LABS: HEMATOCRIT 29.1 % (32.4-45.2); HEMOGLOBIN 9.8 GM/dL (10.7-15.3); MCH 29.8 pg (25.7-33.7); MCHC 33.6 g/dl (32.0-36.0); MEAN CELL VOLUME 88.6 fl (80-96); MEAN PLT VOLUME 8.1 fl (7.5-11.1); PLATELET COUNT 196 10^3/uL (134-434); RBC 3.29 M/mm3 (3.60-5.2); RDW 13.8 % (11.6-15.6); WHITE BLOOD COUNT 7.1 K/mm3 (4.0-10.0)
[2022-03-15 08:35] LABS: ALBUMIN 2.4 g/dl (3.4-5.0)
[2022-03-15 08:37] LABS: BLOOD UREA NITROGEN 24.1 mg/dL (7-18); CALCIUM 8.1 mg/dL (8.5-10.1); MAGNESIUM 1.4 mg/dL (1.8-2.4)
[2022-03-15 08:40] LABS: CREATININE 0.9 mg/dL (0.55-1.3)
[2022-03-15 08:41] LABS: BILIRUBIN,TOTAL 0.2 mg/dL (0.2-1); PHOSPHOROUS 2.1 mg/dL (2.5-4.9); TOT PROT 5.2 g/dl (6.4-8.2)
[2022-03-15] MEDS: ENOXAPARIN NA (PORCINE) 40 MG/0.4 ML DISP.SYRIN SQ SCH (09:48)
[2022-03-15] MEDS: ASPIRIN COATED 81 MG TABLET.EC PO SCH (09:48)
[2022-03-15] MEDS ORDERED: MAGNESIUM 2GM/50ML STERILE WATER IVPB IVPB SCH (11:30)
[2022-03-15] MEDS ORDERED: POTASSIUM PHOSPHATE 45 MM in SODIUM CHLORIDE 250 ML IVPB ONE (14:28)
[2022-03-15] MEDS ORDERED: POTASSIUM PHOSPHATE 45 MM in SODIUM CHLORIDE 500 ML IVPB ONE (14:45)
[2022-03-15] MEDS: ATORVASTATIN CA 40 MG TABLET (FP) PO SCH (21:29)
[2022-03-16] MEDS: INSULIN (LEVEMIR) 100 UNITS/ML UNITS SQ SCH ×2 (06:21→21:35)
[2022-03-16] MEDS: sitaGLIPtin PHOSPHATE 50 MG TABLET PO SCH (06:26)
[2022-03-16] MEDS: Insulin (LOG) Aspart 100 UNITS/ML VIAL SQ SCH ×3 (06:28→16:50)
[2022-03-16] MEDS: amLODIPine BESYLATE 5 MG TABLET (FP) PO SCH (06:28)
[2022-03-16] MEDS: INSULIN SLIDING SCALE (NOVOLOG) 1 VIAL SQ SCH ×3 (06:29→16:50)
[2022-03-16] MEDS: LISINOPRIL 10 MG TABLET PO SCH (07:28)
[2022-03-16 07:30] LABS: BASO % 0.6 % (0-2.0); HEMATOCRIT 32.2 % (32.4-45.2); HEMOGLOBIN 10.6 GM/dL (10.7-15.3); LYMPH % 17.8 % (8-40); MCH 29.1 pg (25.7-33.7); MCHC 32.8 g/dl (32.0-36.0); MEAN CELL VOLUME 88.5 fl (80-96); MONO % 11.7 % (3.8-10.2); NEUT % 68.9 % (42.8-82.8); PLATELET COUNT 189 10^3/uL (134-434); RBC 3.63 M/mm3 (3.60-5.2); RDW 13.9 % (11.6-15.6); WHITE BLOOD COUNT 5.5 K/mm3 (4.0-10.0)
[2022-03-16 07:52] LABS: ALBUMIN 2.5 g/dl (3.4-5.0)
[2022-03-16 07:54] LABS: PHOSPHOROUS 3.2 mg/dL (2.5-4.9)
[2022-03-16 07:55] LABS: BILIRUBIN,TOTAL 0.2 mg/dL (0.2-1); TOT PROT 5.3 g/dl (6.4-8.2)
[2022-03-16 07:56] LABS: CALCIUM 8.3 mg/dL (8.5-10.1); MAGNESIUM 1.9 mg/dL (1.8-2.4)
[2022-03-16] MEDS: ASPIRIN COATED 81 MG TABLET.EC PO SCH (09:52)
[2022-03-16] MEDS: ENOXAPARIN NA (PORCINE) 40 MG/0.4 ML DISP.SYRIN SQ SCH (09:52)
[2022-03-16 19:16] VITALS: RESP 18
[2022-03-16] MEDS: ATORVASTATIN CA 40 MG TABLET (FP) PO SCH (21:26)
[2022-03-17] MEDS: LISINOPRIL 10 MG TABLET PO SCH (06:35)
[2022-03-17] MEDS: sitaGLIPtin PHOSPHATE 50 MG TABLET PO SCH (06:35)
[2022-03-17] MEDS: amLODIPine BESYLATE 5 MG TABLET (FP) PO SCH (06:35)
[2022-03-17] MEDS: INSULIN (LEVEMIR) 100 UNITS/ML UNITS SQ SCH ×2 (06:36→22:53)
[2022-03-17 07:23] LABS: BASO % 0.5 % (0-2.0); EOS % 1.2 % (0-4.5); HEMATOCRIT 28.5 % (32.4-45.2); HEMOGLOBIN 9.7 GM/dL (10.7-15.3); LYMPH % 12.8 % (8-40); MCH 30.4 pg (25.7-33.7); MCHC 34.2 g/dl (32.0-36.0); MEAN CELL VOLUME 88.7 fl (80-96); MEAN PLT VOLUME 7.8 fl (7.5-11.1); MONO % 10.9 % (3.8-10.2); NEUT % 74.6 % (42.8-82.8); PLATELET COUNT 163 10^3/uL (134-434); RBC 3.21 M/mm3 (3.60-5.2); RDW 14.1 % (11.6-15.6); WHITE BLOOD COUNT 6.1 K/mm3 (4.0-10.0)
[2022-03-17 07:39] LABS: ALBUMIN 2.2 g/dl (3.4-5.0); BLOOD UREA NITROGEN 26.8 mg/dL (7-18); CALCIUM 8.4 mg/dL (8.5-10.1); MAGNESIUM 1.7 mg/dL (1.8-2.4)
[2022-03-17 07:42] LABS: CREATININE 1.2 mg/dL (0.55-1.3); PHOSPHOROUS 2.7 mg/dL (2.5-4.9)
[2022-03-17 07:44] LABS: BILIRUBIN,TOTAL 0.2 mg/dL (0.2-1); TOT PROT 4.8 g/dl (6.4-8.2)
[2022-03-17] MEDS: INSULIN SLIDING SCALE (NOVOLOG) 1 VIAL SQ SCH ×3 (09:20→16:52)
[2022-03-17] MEDS: Insulin (LOG) Aspart 100 UNITS/ML VIAL SQ SCH ×3 (09:21→17:34)
[2022-03-17] MEDS: ASPIRIN COATED 81 MG TABLET.EC PO SCH (09:29)
[2022-03-17] MEDS: ENOXAPARIN NA (PORCINE) 40 MG/0.4 ML DISP.SYRIN SQ SCH (09:29)
[2022-03-17] MEDS ORDERED: MAGNESIUM SULF 50% (8.12 MEQ/2 ML-1 GM VIAL) IVPB ONE (11:17)
[2022-03-17] MEDS: ATORVASTATIN CA 40 MG TABLET (FP) PO SCH (22:53)
[2022-03-18] MEDS: sitaGLIPtin PHOSPHATE 50 MG TABLET PO SCH (06:24)
[2022-03-18] MEDS: amLODIPine BESYLATE 5 MG TABLET (FP) PO SCH (06:24)
[2022-03-18] MEDS: LISINOPRIL 10 MG TABLET PO SCH (06:24)
[2022-03-18] MEDS: Insulin (LOG) Aspart 100 UNITS/ML VIAL SQ SCH ×2 (06:24→12:02)
[2022-03-18] MEDS: INSULIN SLIDING SCALE (NOVOLOG) 1 VIAL SQ SCH ×2 (06:27→12:01)
[2022-03-18] MEDS: INSULIN (LEVEMIR) 100 UNITS/ML UNITS SQ SCH (06:39)
[2022-03-18 07:10] LABS: BASO % 0.5 % (0-2.0); EOS % 1.4 % (0-4.5); HEMATOCRIT 28.2 % (32.4-45.2); HEMOGLOBIN 9.7 GM/dL (10.7-15.3); MCH 30.5 pg (25.7-33.7); MCHC 34.4 g/dl (32.0-36.0); MEAN CELL VOLUME 88.7 fl (80-96); MONO % 11.8 % (3.8-10.2); NEUT % 72.3 % (42.8-82.8); PLATELET COUNT 174 10^3/uL (134-434); RBC 3.18 M/mm3 (3.60-5.2); WHITE BLOOD COUNT 5.9 K/mm3 (4.0-10.0)
[2022-03-18 07:46] LABS: ALBUMIN 2.3 g/dl (3.4-5.0); BLOOD UREA NITROGEN 28.4 mg/dL (7-18); CALCIUM 8.8 mg/dL (8.5-10.1); MAGNESIUM 2.2 mg/dL (1.8-2.4)
[2022-03-18 07:49] LABS: CREATININE 1.1 mg/dL (0.55-1.3)
[2022-03-18 07:50] LABS: BILIRUBIN,TOTAL 0.2 mg/dL (0.2-1)
[2022-03-18 07:51] LABS: TOT PROT 4.9 g/dl (6.4-8.2)
[2022-03-18 08:25] VITALS: PULSE 65; TEMP 98.8
[2022-03-18] MEDS: ENOXAPARIN NA (PORCINE) 40 MG/0.4 ML DISP.SYRIN SQ SCH (09:26)
[2022-03-18] MEDS: ASPIRIN COATED 81 MG TABLET.EC PO SCH (09:26)
[2022-03-18 15:16] VITALS: BP 179/68
== END 2022-03-18 17:13 | disposition home or self-care (01) ==
LOC: JER 18:01 → JERBED 19:50 → J4W 03-14 00:57
PROVIDERS: ADMIT Internal Medicine; ATTEND Internal Medicine
PROC: 3E033GC Introduction of Other Therapeutic Substance into Peripheral Vein, Percutaneous Approach (ICD-10-PCS; principal; 2022-03-12)
PROC: 3E0337Z Introduction of Electrolytic and Water Balance Substance into Peripheral Vein, Percutaneous Approach (ICD-10-PCS; 2022-03-12)
PROC: 3E013VG Introduction of Insulin into Subcutaneous Tissue, Percutaneous Approach (ICD-10-PCS; 2022-03-12)
PROC: 3E013GC Introduction of Other Therapeutic Substance into Subcutaneous Tissue, Percutaneous Approach (ICD-10-PCS; 2022-03-12)
DX: E87.6 Hypokalemia (principal); I16.0 Hypertensive urgency; C90.00 Multiple myeloma not having achieved remission; E87.5 Hyperkalemia; I10 Essential (primary) hypertension; E11.65 Type 2 diabetes mellitus with hyperglycemia; M54.59 Other low back pain; R53.1 Weakness; E78.5 Hyperlipidemia, unspecified; W18.39XA Other fall on same level, initial encounter; Z91.81 History of falling; Y93.89 Activity, other specified; Y92.230 Patient room in hospital as the place of occurrence of the external cause; Z79.84 Long term (current) use of oral hypoglycemic drugs; Z79.82 Long term (current) use of aspirin; Z91.14 Patient's other noncompliance with medication regimen; Z92.21 Personal history of antineoplastic chemotherapy
CPT/HCPCS: 0241U-QW; 36415; 70450-TC; 70486-TC; 71045-TC-FY; 72125-TC; 72170-TC-FY; 73562-TC-LT-FY; 80053; 81003; 82010; 82803; 82962; 83036; 83735; 84100; 84484; 85025; 85027; 85610; 85730; 86850; 86900; 86901; 87086; 93005; 93010; 96361; 96365; 96366; 96372; 96375; 97116-GP; 97161-GP; 99285-25; G0378

== ENCOUNTER 2022-03-26 13:36 | Day surgery (SDC) | payer OTHER, BC ==
[2022-03-26 14:46] LABS: BASO % 0.6 % (0-2.0); EOS % 0.5 % (0-4.5); HEMATOCRIT 28.6 % (32.4-45.2); HEMOGLOBIN 9.8 GM/dL (10.7-15.3); LYMPH % 16.6 % (8-40); MCH 30.4 pg (25.7-33.7); MCHC 34.5 g/dl (32.0-36.0); MEAN PLT VOLUME 6.7 fl (7.5-11.1); MONO % 8.1 % (3.8-10.2); NEUT % 74.2 % (42.8-82.8); PLATELET COUNT 286 10^3/uL (134-434); RBC 3.24 M/mm3 (3.60-5.2); RDW 14.4 % (11.6-15.6)
[2022-03-26 15:13] LABS: CALCIUM 9.6 mg/dL (8.5-10.1)
[2022-03-26 15:14] LABS: BLOOD UREA NITROGEN 22.4 mg/dL (7-18); MAGNESIUM 1.8 mg/dL (1.8-2.4)
[2022-03-26 15:17] LABS: BILIRUBIN,DIRECT 0.1 mg/dL (0.0-0.2); CREATININE 0.9 mg/dL (0.55-1.3)
[2022-03-26 15:18] LABS: BILIRUBIN,TOTAL 0.3 mg/dL (0.2-1); TOT PROT 6.3 g/dl (6.4-8.2)
[2022-03-26 15:23] LABS: URIC ACID 4.5 mg/dL (2.6-7.2)
[2022-03-26 15:24] LABS: ALBUMIN 3.2 g/dl (3.4-5.0)
[2022-03-26 18:20] VITALS: TEMP 97.8
[2022-03-26 18:21] VITALS: BP 162/65; PULSE 75; RESP 18
== END 2022-03-26 16:00 | disposition home or self-care (01) ==
LOC: JONCCHEMO 13:36
PROVIDERS: ATTEND Internal Medicine Hematology & Oncology
PROC: 3E01305 Introduction of Other Antineoplastic into Subcutaneous Tissue, Percutaneous Approach (ICD-10-PCS; principal; 2022-03-26)
PROC: 3E0337Z Introduction of Electrolytic and Water Balance Substance into Peripheral Vein, Percutaneous Approach (ICD-10-PCS; 2022-03-26)
PROC: 3E033GC Introduction of Other Therapeutic Substance into Peripheral Vein, Percutaneous Approach (ICD-10-PCS; 2022-03-26)
DX: Z51.11 Encounter for antineoplastic chemotherapy (principal); C90.00 Multiple myeloma not having achieved remission
CPT/HCPCS: 36415; 80048; 80076; 83615; 83735; 84550; 85025; 96365; 96401; J9044

== ENCOUNTER 2022-04-02 13:23 | Day surgery (SDC) | payer OTHER, BC ==
[2022-04-02 14:39] LABS: BASO % 0.4 % (0-2.0); EOS % 0.4 % (0-4.5); HEMATOCRIT 31.8 % (32.4-45.2); HEMOGLOBIN 10.6 GM/dL (10.7-15.3); MCH 29.7 pg (25.7-33.7); MCHC 33.3 g/dl (32.0-36.0); MEAN CELL VOLUME 89.2 fl (80-96); MEAN PLT VOLUME 7.3 fl (7.5-11.1); MONO % 10.7 % (3.8-10.2); NEUT % 70.5 % (42.8-82.8); PLATELET COUNT 257 10^3/uL (134-434); RBC 3.56 M/mm3 (3.60-5.2); RDW 14.9 % (11.6-15.6); WHITE BLOOD COUNT 9.9 K/mm3 (4.0-10.0)
[2022-04-02 15:14] LABS: ALBUMIN 3.4 g/dl (3.4-5.0); MAGNESIUM 1.8 mg/dL (1.8-2.4)
[2022-04-02 15:16] LABS: BILIRUBIN,DIRECT 0.1 mg/dL (0.0-0.2); CREATININE 0.8 mg/dL (0.55-1.3)
[2022-04-02] MEDS ORDERED: POTASSIUM CHLORIDE TABS 20 MEQ TABLET.ER (FP) PO ONE (15:17)
[2022-04-02 15:18] LABS: BILIRUBIN,TOTAL 0.4 mg/dL (0.2-1); TOT PROT 6.4 g/dl (6.4-8.2)
[2022-04-02] MEDS: amLODIPine BESYLATE 10 MG TABLET (FP) PO ONE ×2 (15:22→15:26)
[2022-04-02 15:32] LABS: URIC ACID 5.1 mg/dL (2.6-7.2)
[2022-04-02 17:32] VITALS: RESP 18
[2022-04-02 17:39] VITALS: BP 156/72; PULSE 70
[2022-04-02 17:41] VITALS: TEMP 98.3
== END 2022-04-02 16:50 | disposition home or self-care (01) ==
LOC: JONCCHEMO 13:23
PROVIDERS: ATTEND Internal Medicine Hematology & Oncology
PROC: 3E01305 Introduction of Other Antineoplastic into Subcutaneous Tissue, Percutaneous Approach (ICD-10-PCS; principal; 2022-04-02)
PROC: 3E033GC Introduction of Other Therapeutic Substance into Peripheral Vein, Percutaneous Approach (ICD-10-PCS; 2022-04-02)
DX: Z51.11 Encounter for antineoplastic chemotherapy (principal); C90.00 Multiple myeloma not having achieved remission
CPT/HCPCS: 36415; 80048; 80076; 82962; 83615; 83735; 84550; 85025; 96365; 96401; J9044

== ENCOUNTER 2022-04-23 14:43 | Day surgery (SDC) | payer OTHER, BC ==
[2022-04-23 15:37] LABS: BASO % 0.2 % (0-2.0); EOS % 0.7 % (0-4.5); HEMATOCRIT 32.2 % (32.4-45.2); HEMOGLOBIN 10.8 GM/dL (10.7-15.3); LYMPH % 8.2 % (8-40); MCH 30.4 pg (25.7-33.7); MCHC 33.6 g/dl (32.0-36.0); MEAN CELL VOLUME 90.3 fl (80-96); MEAN PLT VOLUME 6.5 fl (7.5-11.1); MONO % 9.3 % (3.8-10.2); NEUT % 81.6 % (42.8-82.8); PLATELET COUNT 275 10^3/uL (134-434); RBC 3.56 M/mm3 (3.60-5.2); RDW 15.4 % (11.6-15.6); WHITE BLOOD COUNT 7.7 K/mm3 (4.0-10.0)
[2022-04-23 16:06] LABS: CALCIUM 9.9 mg/dL (8.5-10.1); MAGNESIUM 2.2 mg/dL (1.8-2.4)
[2022-04-23 16:07] LABS: ALBUMIN 3.5 g/dl (3.4-5.0); BLOOD UREA NITROGEN 26.3 mg/dL (7-18)
[2022-04-23 16:09] LABS: BILIRUBIN,DIRECT 0.1 mg/dL (0.0-0.2); CREATININE 0.8 mg/dL (0.55-1.3)
[2022-04-23 16:11] LABS: TOT PROT 6.8 g/dl (6.4-8.2)
[2022-04-23 16:12] LABS: BILIRUBIN,TOTAL 0.4 mg/dL (0.2-1)
[2022-04-23] MEDS ORDERED: POTASSIUM CHLORIDE TABS 20 MEQ TABLET.ER (FP) PO ONE (16:39)
[2022-04-23 16:56] VITALS: BP 161/68; PULSE 74; RESP 20; TEMP 98.4
== END 2022-04-23 17:56 | disposition home or self-care (01) ==
LOC: JONCCHEMO 14:43
PROVIDERS: ATTEND Internal Medicine Hematology & Oncology
PROC: 3E01305 Introduction of Other Antineoplastic into Subcutaneous Tissue, Percutaneous Approach (ICD-10-PCS; principal; 2022-04-23)
PROC: 3E033GC Introduction of Other Therapeutic Substance into Peripheral Vein, Percutaneous Approach (ICD-10-PCS; 2022-04-23)
DX: Z51.11 Encounter for antineoplastic chemotherapy (principal); C90.00 Multiple myeloma not having achieved remission
CPT/HCPCS: 36415; 80048; 80076; 82962; 83615; 83735; 84550; 85025; 96365; 96401; J9044

== ENCOUNTER 2022-04-30 13:51 | Day surgery (SDC) | payer OTHER, BC ==
[2022-04-30 14:30] LABS: BASO % 0.4 % (0-2.0); HEMATOCRIT 30.9 % (32.4-45.2); HEMOGLOBIN 10.3 GM/dL (10.7-15.3); LYMPH % 23.1 % (8-40); MCHC 33.2 g/dl (32.0-36.0); MEAN CELL VOLUME 90.4 fl (80-96); MEAN PLT VOLUME 6.8 fl (7.5-11.1); MONO % 12.5 % (3.8-10.2); PLATELET COUNT 312 10^3/uL (134-434); RBC 3.41 M/mm3 (3.60-5.2); RDW 15.4 % (11.6-15.6); WHITE BLOOD COUNT 8.4 K/mm3 (4.0-10.0)
[2022-04-30 14:41] LABS: CHLORIDE 105 mmol/L (98-107); SODIUM 144 mmol/L (136-145)
[2022-04-30 14:43] LABS: ANION GAP 8 MMOL/L (8-16); CALCIUM 9.8 mg/dL (8.5-10.1); CO2 31 mmol/L (21-32); MAGNESIUM 2.2 mg/dL (1.8-2.4)
[2022-04-30 14:44] LABS: ALBUMIN 3.4 g/dl (3.4-5.0); BLOOD UREA NITROGEN 28.4 mg/dL (7-18)
[2022-04-30 14:46] LABS: BILIRUBIN,DIRECT 0.1 mg/dL (0.0-0.2); CREATININE 0.9 mg/dL (0.55-1.3); SGOT/AST 16 U/L (15-37); SGPT/ALT 22 U/L (13-61); URIC ACID 4.5 mg/dL (2.6-7.2)
[2022-04-30 14:48] LABS: TOT PROT 6.7 g/dl (6.4-8.2)
[2022-04-30 14:49] LABS: BILIRUBIN,TOTAL 0.2 mg/dL (0.2-1); LDH 170 U/L (84-246)
[2022-04-30 14:50] LABS: ALK PHOS 70 U/L (45-117)
[2022-04-30 14:52] LABS: GLUCOSE,RANDOM 45 mg/dL (74-106)
[2022-04-30] MEDS ORDERED: POTASSIUM CHLORIDE TABS 20 MEQ TABLET.ER (FP) PO ONE (15:23)
[2022-04-30 17:19] VITALS: PULSE 80; RESP 20; TEMP 98
[2022-04-30 17:32] VITALS: BP 149/74
== END 2022-04-30 17:15 | disposition home or self-care (01) ==
LOC: JONCCHEMO 13:51
PROVIDERS: ATTEND Internal Medicine Hematology & Oncology
PROC: 3E01305 Introduction of Other Antineoplastic into Subcutaneous Tissue, Percutaneous Approach (ICD-10-PCS; principal; 2022-04-30)
PROC: 3E033GC Introduction of Other Therapeutic Substance into Peripheral Vein, Percutaneous Approach (ICD-10-PCS; 2022-04-30)
DX: Z51.11 Encounter for antineoplastic chemotherapy (principal); C90.00 Multiple myeloma not having achieved remission
CPT/HCPCS: 36415; 80048; 80076; 82962; 83615; 83735; 84550; 85025; 96365; 96401; J9044

== ENCOUNTER 2022-05-07 12:57 | Day surgery (SDC) | payer OTHER, BC ==
[2022-05-07 13:20] LABS: BASO % 0.5 % (0-2.0); EOS % 0.3 % (0-4.5); HEMATOCRIT 30.9 % (32.4-45.2); HEMOGLOBIN 10.2 GM/dL (10.7-15.3); LYMPH % 6.9 % (8-40); MCHC 33.2 g/dl (32.0-36.0); MEAN CELL VOLUME 90.4 fl (80-96); MEAN PLT VOLUME 7.4 fl (7.5-11.1); MONO % 7.1 % (3.8-10.2); NEUT % 85.2 % (42.8-82.8); PLATELET COUNT 275 10^3/uL (134-434); RBC 3.42 M/mm3 (3.60-5.2); RDW 15.1 % (11.6-15.6); WHITE BLOOD COUNT 10.5 K/mm3 (4.0-10.0)
[2022-05-07 13:50] LABS: ALBUMIN 3.3 g/dl (3.4-5.0); BLOOD UREA NITROGEN 26.1 mg/dL (7-18); CALCIUM 9.8 mg/dL (8.5-10.1); MAGNESIUM 2.2 mg/dL (1.8-2.4)
[2022-05-07 13:53] LABS: BILIRUBIN,DIRECT 0.1 mg/dL (0.0-0.2); URIC ACID 3.6 mg/dL (2.6-7.2)
[2022-05-07 13:55] LABS: BILIRUBIN,TOTAL 0.3 mg/dL (0.2-1); TOT PROT 6.6 g/dl (6.4-8.2)
[2022-05-07] MEDS ORDERED: POTASSIUM CHLORIDE TABS 20 MEQ TABLET.ER (FP) PO ONE (15:00)
[2022-05-07 16:39] VITALS: BP 152/70; PULSE 73; RESP 20; TEMP 97.4
[2022-05-08 17:06] LABS: FREE KAPPA,SERUM 858.5 mg/L (3.3-19.4)
[2022-05-09 07:10] LABS: BETA-2-MICROGLOBULIN 2.3 mg/L (0.6-2.4); IMMUNOGLOBULIN D < 1.30 mg/dL (<14.11)
== END 2022-05-07 17:15 | disposition home or self-care (01) ==
LOC: JONCCHEMO 12:57
PROVIDERS: ATTEND Internal Medicine Hematology & Oncology
PROC: 3E033GC Introduction of Other Therapeutic Substance into Peripheral Vein, Percutaneous Approach (ICD-10-PCS; principal; 2022-05-07)
PROC: 3E01305 Introduction of Other Antineoplastic into Subcutaneous Tissue, Percutaneous Approach (ICD-10-PCS; 2022-05-07)
DX: Z51.11 Encounter for antineoplastic chemotherapy (principal); C90.00 Multiple myeloma not having achieved remission
CPT/HCPCS: 36415; 80048; 80076; 82232; 82784; 82785; 83615; 83735; 83883; 84155; 84165; 84550; 85025; 86335; 96365; 96401; J9044

== ENCOUNTER 2022-05-14 14:59 | Day surgery (SDC) | payer OTHER, BC ==
[2022-05-14 12:57] LABS: BASO % 0.3 % (0-2.0); EOS % 0.2 % (0-4.5); HEMOGLOBIN 10.2 GM/dL (10.7-15.3); LYMPH % 10.1 % (8-40); MCH 31.1 pg (25.7-33.7); MCHC 34.1 g/dl (32.0-36.0); MEAN CELL VOLUME 91.3 fl (80-96); MEAN PLT VOLUME 6.9 fl (7.5-11.1); MONO % 8.1 % (3.8-10.2); NEUT % 81.3 % (42.8-82.8); PLATELET COUNT 239 10^3/uL (134-434); RBC 3.28 M/mm3 (3.60-5.2); RDW 15.1 % (11.6-15.6); WHITE BLOOD COUNT 9.1 K/mm3 (4.0-10.0)
[2022-05-14 13:17] LABS: CHLORIDE 105 mmol/L (98-107); SODIUM 143 mmol/L (136-145)
[2022-05-14 13:19] LABS: CALCIUM 9.6 mg/dL (8.5-10.1)
[2022-05-14 13:20] LABS: ALBUMIN 3.3 g/dl (3.4-5.0); ANION GAP 7 MMOL/L (8-16); BLOOD UREA NITROGEN 28.6 mg/dL (7-18); CO2 31 mmol/L (21-32); GLUCOSE,RANDOM 71 mg/dL (74-106)
[2022-05-14 13:22] LABS: BILIRUBIN,DIRECT < 0.1 mg/dL (0.0-0.2); CREATININE 0.9 mg/dL (0.55-1.3); SGOT/AST 14 U/L (15-37); SGPT/ALT 22 U/L (13-61); URIC ACID 3.8 mg/dL (2.6-7.2)
[2022-05-14 13:24] LABS: BILIRUBIN,TOTAL 0.3 mg/dL (0.2-1); TOT PROT 6.4 g/dl (6.4-8.2)
[2022-05-14 13:25] LABS: ALK PHOS 77 U/L (45-117)
[2022-05-14 13:27] LABS: LDH 143 U/L (84-246)
[2022-05-14 16:55] VITALS: RESP 20; TEMP 98.2
[2022-05-14 17:01] VITALS: BP 151/73; PULSE 75
== END 2022-05-14 17:14 | disposition home or self-care (01) ==
LOC: JONCCHEMO 14:59
PROVIDERS: ATTEND Internal Medicine Hematology & Oncology
PROC: 3E01305 Introduction of Other Antineoplastic into Subcutaneous Tissue, Percutaneous Approach (ICD-10-PCS; principal; 2022-05-14)
PROC: 3E033GC Introduction of Other Therapeutic Substance into Peripheral Vein, Percutaneous Approach (ICD-10-PCS; 2022-05-14)
DX: Z51.11 Encounter for antineoplastic chemotherapy (principal); C90.00 Multiple myeloma not having achieved remission
CPT/HCPCS: 36415; 80048; 80076; 82962; 83615; 83735; 84550; 85025; 96365; 96401; J9044

== ENCOUNTER 2022-05-28 14:04 | Inpatient (IN) | payer OTHER, BC ==
[2022-05-28 17:02] LABS: BASO % 0.2 % (0-2.0); EOS % 0.2 % (0-4.5); HEMOGLOBIN 9.4 GM/dL (10.7-15.3); LYMPH % 4.5 % (8-40); MCH 30.3 pg (25.7-33.7); MCHC 33.6 g/dl (32.0-36.0); MEAN CELL VOLUME 90.1 fl (80-96); MEAN PLT VOLUME 6.7 fl (7.5-11.1); MONO % 5.3 % (3.8-10.2); NEUT % 89.8 % (42.8-82.8); PLATELET COUNT 233 10^3/uL (134-434); RDW 15.1 % (11.6-15.6); WHITE BLOOD COUNT 9.7 K/mm3 (4.0-10.0)
[2022-05-28 17:40] LABS: CHLORIDE 103 mmol/L (98-107); SODIUM 144 mmol/L (136-145)
[2022-05-28 17:44] LABS: CALCIUM 9.4 mg/dL (8.5-10.1)
[2022-05-28 17:45] LABS: BLOOD UREA NITROGEN 22.2 mg/dL (7-18); CO2 31 mmol/L (21-32); GLUCOSE,RANDOM 69 mg/dL (74-106); MAGNESIUM 1.9 mg/dL (1.8-2.4)
[2022-05-28 17:48] LABS: CREATININE 0.9 mg/dL (0.55-1.3); SGOT/AST 24 U/L (15-37); SGPT/ALT 31 U/L (13-61)
[2022-05-28 17:50] LABS: BILIRUBIN,TOTAL 0.3 mg/dL (0.2-1)
[2022-05-28 17:51] LABS: ALK PHOS 67 U/L (45-117)
[2022-05-28 17:55] LABS: ANION GAP 10 MMOL/L (8-16)
[2022-05-28] MEDS ORDERED: ENOXAPARIN NA (PORCINE) 60 MG/0.6 ML DISP.SYRIN SQ SCH (18:00)
[2022-05-28] MEDS ORDERED: ENOXAPARIN NA (PORCINE) 60 MG/0.6 ML DISP.SYRIN SQ ONE ×2 (18:00→18:16)
[2022-05-28] MEDS ORDERED: POTASSIUM CHLORIDE TABS 20 MEQ TABLET.ER (FP) PO ONE ×4 (18:04→20:53)
[2022-05-28] MEDS: METOPROLOL TARTRATE 50 MG TABLET (FP) PO SCH (23:48)
[2022-05-28] MEDS: FAMOTIDINE 20 MG TABLET PO SCH (23:48)
[2022-05-28] MEDS: INSULIN SLIDING SCALE (NOVOLOG) 1 VIAL SQ SCH (23:48)
[2022-05-29 02:13] VITALS: BMI 26.7
[2022-05-29] MEDS: ENOXAPARIN NA (PORCINE) 60 MG/0.6 ML DISP.SYRIN SQ SCH ×2 (05:54→17:20)
[2022-05-29] MEDS: INSULIN SLIDING SCALE (NOVOLOG) 1 VIAL SQ SCH ×4 (06:06→22:47)
[2022-05-29 08:29] LABS: BASO % 0.8 % (0-2.0); EOS % 0.8 % (0-4.5); HEMATOCRIT 31.6 % (32.4-45.2); HEMOGLOBIN 10.2 GM/dL (10.7-15.3); LYMPH % 10.9 % (8-40); MCH 29.5 pg (25.7-33.7); MCHC 32.4 g/dl (32.0-36.0); MEAN PLT VOLUME 7.5 fl (7.5-11.1); MONO % 6.2 % (3.8-10.2); NEUT % 81.3 % (42.8-82.8); PLATELET COUNT 277 10^3/uL (134-434); RBC 3.47 M/mm3 (3.60-5.2); RDW 14.8 % (11.6-15.6); WHITE BLOOD COUNT 7.6 K/mm3 (4.0-10.0)
[2022-05-29 09:08] LABS: ALBUMIN 3.3 g/dl (3.4-5.0); CALCIUM 9.7 mg/dL (8.5-10.1)
[2022-05-29 09:11] LABS: CREATININE 0.9 mg/dL (0.55-1.3); PHOSPHOROUS 2.9 mg/dL (2.5-4.9)
[2022-05-29 09:13] LABS: BILIRUBIN,TOTAL 0.8 mg/dL (0.2-1); TOT PROT 6.6 g/dl (6.4-8.2)
[2022-05-29] MEDS: ALLOPURINOL 300 MG TABLET (FP) PO SCH (09:34)
[2022-05-29] MEDS: FUROSEMIDE 40 MG TABLET (FP) PO SCH (09:34)
[2022-05-29] MEDS: amLODIPine BESYLATE 10 MG TABLET (FP) PO SCH (09:34)
[2022-05-29] MEDS: valACYclovir HCL 500 MG TABLET (FP) PO SCH (09:34)
[2022-05-29] MEDS: METOPROLOL TARTRATE 50 MG TABLET (FP) PO SCH ×2 (09:35→22:44)
[2022-05-29] MEDS ORDERED: ENOXAPARIN NA (PORCINE) 40 MG/0.4 ML DISP.SYRIN SQ SCH (10:00)
[2022-05-29] MEDS: FAMOTIDINE 20 MG TABLET PO SCH (22:44)
[2022-05-30] MEDS: ENOXAPARIN NA (PORCINE) 60 MG/0.6 ML DISP.SYRIN SQ SCH ×2 (06:42→18:02)
[2022-05-30] MEDS: INSULIN SLIDING SCALE (NOVOLOG) 1 VIAL SQ SCH ×4 (06:42→21:23)
[2022-05-30 08:12] LABS: BASO % 0.7 % (0-2.0); HEMATOCRIT 29.3 % (32.4-45.2); HEMOGLOBIN 9.7 GM/dL (10.7-15.3); LYMPH % 12.7 % (8-40); MCH 29.9 pg (25.7-33.7); MEAN CELL VOLUME 90.6 fl (80-96); MEAN PLT VOLUME 7.1 fl (7.5-11.1); MONO % 10.8 % (3.8-10.2); NEUT % 74.8 % (42.8-82.8); PLATELET COUNT 250 10^3/uL (134-434); RBC 3.24 M/mm3 (3.60-5.2); RDW 14.7 % (11.6-15.6); WHITE BLOOD COUNT 6.2 K/mm3 (4.0-10.0)
[2022-05-30 08:29] LABS: CALCIUM 9.2 mg/dL (8.5-10.1)
[2022-05-30 08:30] LABS: BLOOD UREA NITROGEN 23.5 mg/dL (7-18)
[2022-05-30] MEDS ORDERED: POTASSIUM CHLORIDE TABS 20 MEQ TABLET.ER (FP) PO ONE (08:31)
[2022-05-30 09:43] LABS: MAGNESIUM 2.1 mg/dL (1.8-2.4)
[2022-05-30] MEDS: amLODIPine BESYLATE 10 MG TABLET (FP) PO SCH (09:54)
[2022-05-30] MEDS: valACYclovir HCL 500 MG TABLET (FP) PO SCH (09:54)
[2022-05-30] MEDS: METOPROLOL TARTRATE 50 MG TABLET (FP) PO SCH ×2 (09:54→21:19)
[2022-05-30] MEDS: FUROSEMIDE 40 MG TABLET (FP) PO SCH (09:54)
[2022-05-30] MEDS: ALLOPURINOL 300 MG TABLET (FP) PO SCH (09:54)
[2022-05-30] MEDS ORDERED: LISINOPRIL 5 MG TABLET PO ONE (18:34)
[2022-05-30] MEDS: FAMOTIDINE 20 MG TABLET PO SCH (21:19)
[2022-05-31] MEDS: ENOXAPARIN NA (PORCINE) 60 MG/0.6 ML DISP.SYRIN SQ SCH (05:46)
[2022-05-31] MEDS: INSULIN SLIDING SCALE (NOVOLOG) 1 VIAL SQ SCH ×2 (07:08→12:00)
[2022-05-31 08:09] LABS: BASO % 0.6 % (0-2.0); EOS % 1.2 % (0-4.5); HEMATOCRIT 27.1 % (32.4-45.2); HEMOGLOBIN 9.1 GM/dL (10.7-15.3); LYMPH % 15.3 % (8-40); MCH 30.3 pg (25.7-33.7); MCHC 33.6 g/dl (32.0-36.0); MEAN CELL VOLUME 90.1 fl (80-96); MEAN PLT VOLUME 7.3 fl (7.5-11.1); NEUT % 70.9 % (42.8-82.8); PLATELET COUNT 244 10^3/uL (134-434); RBC 3.01 M/mm3 (3.60-5.2); RDW 14.7 % (11.6-15.6); WHITE BLOOD COUNT 5.5 K/mm3 (4.0-10.0)
[2022-05-31 08:15] LABS: CALCIUM 8.9 mg/dL (8.5-10.1)
[2022-05-31 08:16] LABS: BLOOD UREA NITROGEN 26.3 mg/dL (7-18)
[2022-05-31 08:19] LABS: CREATININE 1.2 mg/dL (0.55-1.3)
[2022-05-31] MEDS: FUROSEMIDE 40 MG TABLET (FP) PO SCH (09:35)
[2022-05-31] MEDS: ALLOPURINOL 300 MG TABLET (FP) PO SCH (09:35)
[2022-05-31] MEDS: METOPROLOL TARTRATE 50 MG TABLET (FP) PO SCH (09:35)
[2022-05-31] MEDS: amLODIPine BESYLATE 10 MG TABLET (FP) PO SCH (09:35)
[2022-05-31] MEDS: valACYclovir HCL 500 MG TABLET (FP) PO SCH (09:36)
[2022-05-31] MEDS ORDERED: LISINOPRIL 5 MG TABLET PO SCH (10:00)
[2022-05-31] MEDS ORDERED: METOPROLOL TARTRATE 50 MG TABLET (FP) PO ONE (13:46)
[2022-05-31 14:57] VITALS: RESP 18
[2022-05-31 15:38] VITALS: BP 144/69; PULSE 72; TEMP 98.2
== END 2022-05-31 17:51 | disposition home or self-care (01) | DRG 176 ==
LOC: JER 14:04 → JERBED 18:31 → J4W 23:40
PROVIDERS: ADMIT Internal Medicine; ATTEND Internal Medicine
DX: I26.93 Single subsegmental thrombotic pulmonary embolism without acute cor pulmonale (principal); I82.401 Acute embolism and thrombosis of unspecified deep veins of right lower extremity; C90.00 Multiple myeloma not having achieved remission; M48.54XA Collapsed vertebra, not elsewhere classified, thoracic region, initial encounter for fracture; M48.56XA Collapsed vertebra, not elsewhere classified, lumbar region, initial encounter for fracture; I10 Essential (primary) hypertension; E11.9 Type 2 diabetes mellitus without complications; E78.5 Hyperlipidemia, unspecified
CPT/HCPCS: 0241U-QW; 36415; 71275-TC; 80048; 80053; 80076; 82728; 82962; 83540; 83550; 83615; 83735; 84100; 84132; 84484; 84550; 85025; 85045; 86850; 86900; 86901; 93005; 93010; 93970-TC; 99285-25; Q9967

== ENCOUNTER 2022-06-04 12:25 | Day surgery (SDC) | payer OTHER, BC ==
[~2022-06-04 12:25] MED LIST changes: +LOPERAMIDE HCL 2 MG CAPSULE PO ONE
[2022-06-04 12:54] LABS: BASO % 0.4 % (0-2.0); EOS % 0.7 % (0-4.5); HEMATOCRIT 30.2 % (32.4-45.2); HEMOGLOBIN 9.8 GM/dL (10.7-15.3); LYMPH % 15.6 % (8-40); MCH 29.8 pg (25.7-33.7); MCHC 32.6 g/dl (32.0-36.0); MEAN CELL VOLUME 91.4 fl (80-96); MEAN PLT VOLUME 6.9 fl (7.5-11.1); MONO % 13.2 % (3.8-10.2); NEUT % 70.1 % (42.8-82.8); PLATELET COUNT 288 10^3/uL (134-434); RDW 15.4 % (11.6-15.6); WHITE BLOOD COUNT 6.5 K/mm3 (4.0-10.0)
[2022-06-04 13:10] LABS: ALBUMIN 3.4 g/dl (3.4-5.0)
[2022-06-04 13:11] LABS: BLOOD UREA NITROGEN 28.4 mg/dL (7-18)
[2022-06-04 13:12] LABS: CREATININE 1.1 mg/dL (0.55-1.3); URIC ACID 3.4 mg/dL (2.6-7.2)
[2022-06-04 13:13] LABS: BILIRUBIN,DIRECT 0.1 mg/dL (0.0-0.2)
[2022-06-04 13:14] LABS: TOT PROT 6.8 g/dl (6.4-8.2)
[2022-06-04 13:15] LABS: BILIRUBIN,TOTAL 0.2 mg/dL (0.2-1)
[2022-06-04 13:19] LABS: CALCIUM 10.4 mg/dL (8.5-10.1)
[2022-06-04 17:06] VITALS: RESP 20; TEMP 97.5
[2022-06-04 17:08] VITALS: BP 129/63; PULSE 77
== END 2022-06-04 17:19 | disposition home or self-care (01) ==
LOC: JONCCHEMO 12:25
PROVIDERS: ATTEND Internal Medicine Hematology & Oncology
PROC: 3E033GC Introduction of Other Therapeutic Substance into Peripheral Vein, Percutaneous Approach (ICD-10-PCS; principal; 2022-06-04)
PROC: 3E01305 Introduction of Other Antineoplastic into Subcutaneous Tissue, Percutaneous Approach (ICD-10-PCS; 2022-06-04)
DX: Z51.11 Encounter for antineoplastic chemotherapy (principal); C90.00 Multiple myeloma not having achieved remission
CPT/HCPCS: 36415; 80048; 80076; 83615; 83735; 84550; 85025; 96365; 96375; 96401; J9044

== ENCOUNTER 2022-06-11 13:48 | Day surgery (SDC) | payer OTHER, BC ==
[2022-06-11 13:25] LABS: BASO % 0.3 % (0-2.0); EOS % 0.5 % (0-4.5); HEMATOCRIT 29.1 % (32.4-45.2); HEMOGLOBIN 9.6 GM/dL (10.7-15.3); LYMPH % 11.1 % (8-40); MCH 30.1 pg (25.7-33.7); MCHC 32.9 g/dl (32.0-36.0); MEAN CELL VOLUME 91.2 fl (80-96); MEAN PLT VOLUME 7.3 fl (7.5-11.1); MONO % 11.3 % (3.8-10.2); NEUT % 76.8 % (42.8-82.8); PLATELET COUNT 293 10^3/uL (134-434); RBC 3.19 M/mm3 (3.60-5.2); WHITE BLOOD COUNT 9.6 K/mm3 (4.0-10.0)
[2022-06-11 13:26] LABS: CHLORIDE 102 mmol/L (98-107); SODIUM 142 mmol/L (136-145)
[2022-06-11 13:27] LABS: ALBUMIN 3.2 g/dl (3.4-5.0); ANION GAP 8 MMOL/L (8-16); BLOOD UREA NITROGEN 28.3 mg/dL (7-18); CALCIUM 9.5 mg/dL (8.5-10.1); CO2 32 mmol/L (21-32); MAGNESIUM 1.9 mg/dL (1.8-2.4)
[2022-06-11 13:31] LABS: BILIRUBIN,DIRECT 0.1 mg/dL (0.0-0.2); CREATININE 1.1 mg/dL (0.55-1.3); SGOT/AST 12 U/L (15-37); SGPT/ALT 20 U/L (13-61)
[2022-06-11 13:33] LABS: ALK PHOS 65 U/L (45-117); BILIRUBIN,TOTAL 0.2 mg/dL (0.2-1); TOT PROT 6.5 g/dl (6.4-8.2)
[2022-06-11 13:35] LABS: LDH 137 U/L (84-246)
[2022-06-11 13:39] LABS: URIC ACID 4.2 mg/dL (2.6-7.2)
[2022-06-11 13:47] LABS: GLUCOSE,RANDOM 48 mg/dL (74-106)
[~2022-06-11 13:48] MED LIST changes: -LOPERAMIDE HCL 2 MG CAPSULE PO ONE
[2022-06-11] MEDS ORDERED: POTASSIUM CHLORIDE TABS 20 MEQ TABLET.ER (FP) PO ONE (14:00)
[2022-06-11 17:17] VITALS: TEMP 98.3
[2022-06-11 17:29] VITALS: BP 153/69; PULSE 78; RESP 18
== END 2022-06-11 17:10 | disposition home or self-care (01) ==
LOC: JONCCHEMO 13:48
PROVIDERS: ATTEND Internal Medicine Hematology & Oncology
PROC: 3E01305 Introduction of Other Antineoplastic into Subcutaneous Tissue, Percutaneous Approach (ICD-10-PCS; principal; 2022-06-11)
PROC: 3E033GC Introduction of Other Therapeutic Substance into Peripheral Vein, Percutaneous Approach (ICD-10-PCS; 2022-06-11)
DX: Z51.11 Encounter for antineoplastic chemotherapy (principal); C90.00 Multiple myeloma not having achieved remission
CPT/HCPCS: 36415; 80048; 80076; 82962; 83615; 83735; 84550; 85025; 96365; 96401; J9044

== ENCOUNTER 2022-06-18 13:19 | Day surgery (SDC) | payer OTHER, BC ==
[~2022-06-18 13:19] MED LIST changes: +oxyCODONE HCL 5 MG TABLET PO ONE
[2022-06-18 13:56] LABS: BASO % 0.9 % (0-2.0); EOS % 0.3 % (0-4.5); HEMATOCRIT 29.2 % (32.4-45.2); HEMOGLOBIN 9.5 GM/dL (10.7-15.3); LYMPH % 8.8 % (8-40); MCH 29.4 pg (25.7-33.7); MCHC 32.4 g/dl (32.0-36.0); MEAN CELL VOLUME 90.7 fl (80-96); MEAN PLT VOLUME 7.9 fl (7.5-11.1); MONO % 7.2 % (3.8-10.2); NEUT % 82.8 % (42.8-82.8); PLATELET COUNT 276 10^3/uL (134-434); RBC 3.22 M/mm3 (3.60-5.2); RDW 14.9 % (11.6-15.6)
[2022-06-18 14:09] LABS: CALCIUM 10.1 mg/dL (8.5-10.1); MAGNESIUM 1.8 mg/dL (1.8-2.4)
[2022-06-18 14:10] LABS: ALBUMIN 3.3 g/dl (3.4-5.0)
[2022-06-18 14:12] LABS: CREATININE 1.1 mg/dL (0.55-1.3)
[2022-06-18 14:13] LABS: BILIRUBIN,DIRECT 0.1 mg/dL (0.0-0.2)
[2022-06-18 14:15] LABS: BILIRUBIN,TOTAL 0.2 mg/dL (0.2-1); TOT PROT 6.5 g/dl (6.4-8.2)
[2022-06-18] MEDS ORDERED: oxyCODONE HCL 5 MG TABLET PO ONE (15:45)
[2022-06-18 17:14] VITALS: TEMP 98.6
[2022-06-18 17:25] VITALS: BP 141/65; PULSE 79; RESP 18
[2022-06-23 16:08] LABS: FREE KAP CHN UR 78.24 mg/L (1.17-86.46); KAPPA LAMBDA RATIO URIN 25.4 (1.83-14.26)
== END 2022-06-18 17:32 | disposition home or self-care (01) ==
LOC: JONCCHEMO 13:19
PROVIDERS: ATTEND Internal Medicine Hematology & Oncology
PROC: 3E033GC Introduction of Other Therapeutic Substance into Peripheral Vein, Percutaneous Approach (ICD-10-PCS; principal; 2022-06-18)
PROC: 3E01305 Introduction of Other Antineoplastic into Subcutaneous Tissue, Percutaneous Approach (ICD-10-PCS; 2022-06-18)
DX: Z51.11 Encounter for antineoplastic chemotherapy (principal); C90.00 Multiple myeloma not having achieved remission
CPT/HCPCS: 36415; 80048; 80076; 82232; 82728; 82784; 83540; 83550; 83615; 83735; 83883; 84155; 84165; 84550; 85025; 86335; 96365; 96401; J9044

== ENCOUNTER 2022-07-09 12:51 | Day surgery (SDC) | payer OTHER, BC ==
[~2022-07-09 12:51] MED LIST changes: -oxyCODONE HCL 5 MG TABLET PO ONE
[2022-07-09 13:58] LABS: BASO % 0.3 % (0-2.0); EOS % 0.5 % (0-4.5); HEMATOCRIT 30.2 % (32.4-45.2); HEMOGLOBIN 9.9 GM/dL (10.7-15.3); LYMPH % 15.4 % (8-40); MCH 29.6 pg (25.7-33.7); MCHC 32.9 g/dl (32.0-36.0); MEAN CELL VOLUME 90.1 fl (80-96); MONO % 12.6 % (3.8-10.2); NEUT % 71.2 % (42.8-82.8); PLATELET COUNT 265 10^3/uL (134-434); RBC 3.35 M/mm3 (3.60-5.2); RDW 15.1 % (11.6-15.6); WHITE BLOOD COUNT 6.8 K/mm3 (4.0-10.0)
[2022-07-09 14:21] LABS: ALBUMIN 3.3 g/dl (3.4-5.0); BLOOD UREA NITROGEN 20.8 mg/dL (7-18); CALCIUM 9.8 mg/dL (8.5-10.1); MAGNESIUM 2.3 mg/dL (1.8-2.4)
[2022-07-09] MEDS ORDERED: POTASSIUM CHLORIDE TABS 20 MEQ TABLET.ER (FP) PO ONE (14:22)
[2022-07-09 14:23] LABS: BILIRUBIN,DIRECT 0.1 mg/dL (0.0-0.2); URIC ACID 3.5 mg/dL (2.6-7.2)
[2022-07-09 14:25] LABS: BILIRUBIN,TOTAL 0.6 mg/dL (0.2-1); TOT PROT 6.9 g/dl (6.4-8.2)
[2022-07-09 18:00] VITALS: RESP 18; TEMP 99
[2022-07-09 18:10] VITALS: BP 156/64; PULSE 77
== END 2022-07-09 17:00 | disposition home or self-care (01) ==
LOC: JONCCHEMO 12:51
PROVIDERS: ATTEND Internal Medicine Hematology & Oncology
PROC: 3E01305 Introduction of Other Antineoplastic into Subcutaneous Tissue, Percutaneous Approach (ICD-10-PCS; principal; 2022-07-09)
PROC: 3E033GC Introduction of Other Therapeutic Substance into Peripheral Vein, Percutaneous Approach (ICD-10-PCS; 2022-07-09)
DX: Z51.11 Encounter for antineoplastic chemotherapy (principal); C90.00 Multiple myeloma not having achieved remission
CPT/HCPCS: 36415; 80048; 80076; 82962; 83615; 83735; 84550; 85025; 96365; 96401; J9041

== ENCOUNTER 2022-07-23 12:50 | Day surgery (SDC) | payer OTHER, BC ==
[2022-07-23 13:24] LABS: BASO % 0.6 % (0-2.0); EOS % 0.2 % (0-4.5); HEMATOCRIT 28.5 % (32.4-45.2); HEMOGLOBIN 9.4 GM/dL (10.7-15.3); MCH 29.8 pg (25.7-33.7); MCHC 32.9 g/dl (32.0-36.0); MEAN CELL VOLUME 90.6 fl (80-96); MONO % 7.9 % (3.8-10.2); NEUT % 78.3 % (42.8-82.8); PLATELET COUNT 283 10^3/uL (134-434); RBC 3.15 M/mm3 (3.60-5.2); RDW 15.4 % (11.6-15.6); WHITE BLOOD COUNT 8.2 K/mm3 (4.0-10.0)
[2022-07-23 13:48] LABS: CALCIUM 9.8 mg/dL (8.5-10.1)
[2022-07-23 13:49] LABS: ALBUMIN 3.2 g/dl (3.4-5.0); BLOOD UREA NITROGEN 22.9 mg/dL (7-18)
[2022-07-23 13:52] LABS: URIC ACID 3.3 mg/dL (2.6-7.2)
[2022-07-23 13:53] LABS: BILIRUBIN,DIRECT 0.1 mg/dL (0.0-0.2)
[2022-07-23 13:54] LABS: BILIRUBIN,TOTAL 0.2 mg/dL (0.2-1); TOT PROT 6.8 g/dl (6.4-8.2)
[2022-07-23] MEDS ORDERED: POTASSIUM CHLORIDE TABS 20 MEQ TABLET.ER (FP) PO ONE (15:05)
[2022-07-23 16:47] VITALS: TEMP 98.6
[2022-07-23 16:54] VITALS: BP 165/75; PULSE 78; RESP 18
== END 2022-07-23 15:50 | disposition home or self-care (01) ==
LOC: JONCCHEMO 12:50
PROVIDERS: ATTEND Internal Medicine Hematology & Oncology
PROC: 3E01305 Introduction of Other Antineoplastic into Subcutaneous Tissue, Percutaneous Approach (ICD-10-PCS; principal; 2022-07-23)
PROC: 3E033GC Introduction of Other Therapeutic Substance into Peripheral Vein, Percutaneous Approach (ICD-10-PCS; 2022-07-23)
DX: Z51.11 Encounter for antineoplastic chemotherapy (principal); C90.00 Multiple myeloma not having achieved remission
CPT/HCPCS: 36415; 80048; 80076; 83615; 83735; 84550; 85025; 96365; 96401; J9041

== ENCOUNTER 2022-07-29 21:51 | Emergency (ER) | payer OTHER, BC ==
[2022-07-29 22:07] VITALS: BP 159/68; PULSE 77; RESP 18; TEMP 98.2; BMI 27.5
[2022-07-29 23:36] LABS: BASO % 0.3 % (0-2.0); HEMATOCRIT 32.8 % (32.4-45.2); HEMOGLOBIN 10.7 GM/dL (10.7-15.3); MCH 29.5 pg (25.7-33.7); MCHC 32.7 g/dl (32.0-36.0); MEAN CELL VOLUME 90.2 fl (80-96); MEAN PLT VOLUME 7.1 fl (7.5-11.1); MONO % 8.1 % (3.8-10.2); NEUT % 87.6 % (42.8-82.8); PLATELET COUNT 235 10^3/uL (134-434); RBC 3.64 M/mm3 (3.60-5.2); RDW 15.9 % (11.6-15.6); WHITE BLOOD COUNT 8.2 K/mm3 (4.0-10.0)
[2022-07-30 00:10] LABS: ALBUMIN 3.3 g/dl (3.4-5.0); CALCIUM 10.1 mg/dL (8.5-10.1)
[2022-07-30 00:11] LABS: BLOOD UREA NITROGEN 24.7 mg/dL (7-18)
[2022-07-30 00:15] LABS: BILIRUBIN,TOTAL 0.4 mg/dL (0.2-1); TOT PROT 7.3 g/dl (6.4-8.2)
== END 2022-07-30 01:15 | disposition home or self-care (01) ==
LOC: JER 21:51
DX: E16.2 Hypoglycemia, unspecified (principal)
CPT/HCPCS: 36415; 80053; 82962; 85025; 93005; 93010; 99284-25

== ENCOUNTER 2022-07-30 13:33 | Day surgery (SDC) | payer OTHER, BC ==
[2022-07-30 14:12] LABS: BASO % 0.5 % (0-2.0); EOS % 0.1 % (0-4.5); HEMATOCRIT 31.2 % (32.4-45.2); HEMOGLOBIN 10.2 GM/dL (10.7-15.3); LYMPH % 7.8 % (8-40); MCH 29.4 pg (25.7-33.7); MCHC 32.7 g/dl (32.0-36.0); MEAN PLT VOLUME 7.1 fl (7.5-11.1); MONO % 14.8 % (3.8-10.2); NEUT % 76.8 % (42.8-82.8); PLATELET COUNT 210 10^3/uL (134-434); RBC 3.47 M/mm3 (3.60-5.2); RDW 15.5 % (11.6-15.6); WHITE BLOOD COUNT 5.3 K/mm3 (4.0-10.0)
[2022-07-30 14:44] LABS: CALCIUM 10.5 mg/dL (8.5-10.1); MAGNESIUM 2.1 mg/dL (1.8-2.4)
[2022-07-30 14:45] LABS: ALBUMIN 3.2 g/dl (3.4-5.0); BLOOD UREA NITROGEN 26.3 mg/dL (7-18)
[2022-07-30 14:46] LABS: URIC ACID 3.6 mg/dL (2.6-7.2)
[2022-07-30 14:47] LABS: BILIRUBIN,DIRECT 0.2 mg/dL (0.0-0.2); CREATININE 1.2 mg/dL (0.55-1.3)
[2022-07-30 14:48] LABS: TOT PROT 6.8 g/dl (6.4-8.2)
[2022-07-30 14:50] LABS: BILIRUBIN,TOTAL 0.4 mg/dL (0.2-1)
[2022-07-30] MEDS ORDERED: POTASSIUM CHLORIDE TABS 20 MEQ TABLET.ER (FP) PO ONE (15:05)
[2022-07-30] MEDS ORDERED: SODIUM CHLORIDE 0.9% 250 ML INFUS.BAG IV ONE (15:06)
[2022-07-30 16:51] VITALS: RESP 20; TEMP 97.9
[2022-07-30 17:47] VITALS: BP 148/57; PULSE 82
== END 2022-07-30 17:48 | disposition home or self-care (01) ==
LOC: JONCCHEMO 13:33
PROVIDERS: ATTEND Internal Medicine Hematology & Oncology
PROC: 3E033GC Introduction of Other Therapeutic Substance into Peripheral Vein, Percutaneous Approach (ICD-10-PCS; principal; 2022-07-30)
DX: Z51.11 Encounter for antineoplastic chemotherapy (principal); C90.00 Multiple myeloma not having achieved remission
CPT/HCPCS: 36415; 80048; 80076; 83615; 83735; 84550; 85025; 96361; 96365; 96401; J9041

== ENCOUNTER 2022-08-06 12:56 | Day surgery (SDC) | payer OTHER, BC ==
[~2022-08-06 12:56] MED LIST changes: +LOPERAMIDE HCL 2 MG CAPSULE PO ONE
[2022-08-06 13:05] LABS: BASO % 0.4 % (0-2.0); EOS % 0.6 % (0-4.5); HEMATOCRIT 30.8 % (32.4-45.2); HEMOGLOBIN 10.2 GM/dL (10.7-15.3); LYMPH % 11.7 % (8-40); MCH 29.9 pg (25.7-33.7); MCHC 33.2 g/dl (32.0-36.0); MEAN PLT VOLUME 7.4 fl (7.5-11.1); NEUT % 80.3 % (42.8-82.8); PLATELET COUNT 305 10^3/uL (134-434); RBC 3.43 M/mm3 (3.60-5.2); RDW 15.9 % (11.6-15.6); WHITE BLOOD COUNT 8.6 K/mm3 (4.0-10.0)
[2022-08-06 13:33] LABS: ALBUMIN 3.3 g/dl (3.4-5.0); CALCIUM 10.6 mg/dL (8.5-10.1); MAGNESIUM 2.1 mg/dL (1.8-2.4)
[2022-08-06 13:34] LABS: BLOOD UREA NITROGEN 27.6 mg/dL (7-18)
[2022-08-06 13:35] LABS: CREATININE 1.1 mg/dL (0.55-1.3); URIC ACID 3.5 mg/dL (2.6-7.2)
[2022-08-06 13:36] LABS: BILIRUBIN,DIRECT 0.1 mg/dL (0.0-0.2)
[2022-08-06 13:37] LABS: TOT PROT 7.2 g/dl (6.4-8.2)
[2022-08-06 13:50] LABS: BILIRUBIN,TOTAL 0.5 mg/dL (0.2-1)
[2022-08-06] MEDS ORDERED: SODIUM CHLORIDE 0.9% 250 ML INFUS.BAG IV ONE (14:10)
[2022-08-06 15:19] VITALS: TEMP 98.9
[2022-08-06 17:36] VITALS: BP 161/63; PULSE 79; RESP 20
[2022-08-08 18:07] LABS: FREE KAPPA,SERUM 1368.5 mg/L (3.3-19.4)
[2022-08-11 00:09] LABS: BETA-2-MICROGLOBULIN 2.6 mg/L (0.6-2.4)
== END 2022-08-06 16:00 | disposition home or self-care (01) ==
LOC: JONCCHEMO 12:56
PROVIDERS: ATTEND Internal Medicine Hematology & Oncology
PROC: 3E01305 Introduction of Other Antineoplastic into Subcutaneous Tissue, Percutaneous Approach (ICD-10-PCS; principal; 2022-08-06)
PROC: 3E033GC Introduction of Other Therapeutic Substance into Peripheral Vein, Percutaneous Approach (ICD-10-PCS; 2022-08-06)
DX: Z51.11 Encounter for antineoplastic chemotherapy (principal); C90.00 Multiple myeloma not having achieved remission
CPT/HCPCS: 36415; 80048; 80076; 82232; 82784; 83615; 83735; 83883; 84155; 84165; 84550; 85025; 86334; 86335; 96361; 96365; 96401; J9041

== ENCOUNTER 2022-08-13 13:12 | Day surgery (SDC) | payer OTHER, BC ==
[~2022-08-13 13:12] MED LIST changes: -LOPERAMIDE HCL 2 MG CAPSULE PO ONE
[2022-08-13 13:34] LABS: BASO % 0.4 % (0-2.0); EOS % 0.4 % (0-4.5); LYMPH % 10.9 % (8-40); MCH 30.3 pg (25.7-33.7); MCHC 33.4 g/dl (32.0-36.0); MEAN CELL VOLUME 90.9 fl (80-96); MEAN PLT VOLUME 7.3 fl (7.5-11.1); MONO % 7.5 % (3.8-10.2); NEUT % 80.8 % (42.8-82.8); PLATELET COUNT 280 10^3/uL (134-434); RDW 15.8 % (11.6-15.6); WHITE BLOOD COUNT 9.5 K/mm3 (4.0-10.0)
[2022-08-13 14:12] LABS: ALBUMIN 3.4 g/dl (3.4-5.0); CALCIUM 9.6 mg/dL (8.5-10.1)
[2022-08-13 14:13] LABS: MAGNESIUM 1.9 mg/dL (1.8-2.4)
[2022-08-13 14:15] LABS: BILIRUBIN,DIRECT 0.1 mg/dL (0.0-0.2); CREATININE 1.1 mg/dL (0.55-1.3); URIC ACID 4.8 mg/dL (2.6-7.2)
[2022-08-13 14:17] LABS: BILIRUBIN,TOTAL 0.3 mg/dL (0.2-1); TOT PROT 7.1 g/dl (6.4-8.2)
[2022-08-13] MEDS ORDERED: POTASSIUM CHLORIDE TABS 20 MEQ TABLET.ER (FP) PO ONE (14:28)
[2022-08-13 17:45] VITALS: BP 142/78; PULSE 62; RESP 20; TEMP 98.2
== END 2022-08-13 17:15 | disposition home or self-care (01) ==
LOC: JONCCHEMO 13:12
PROVIDERS: ATTEND Internal Medicine Hematology & Oncology
PROC: 3E01305 Introduction of Other Antineoplastic into Subcutaneous Tissue, Percutaneous Approach (ICD-10-PCS; principal; 2022-08-13)
PROC: 3E033GC Introduction of Other Therapeutic Substance into Peripheral Vein, Percutaneous Approach (ICD-10-PCS; 2022-08-13)
DX: Z51.11 Encounter for antineoplastic chemotherapy (principal); C90.00 Multiple myeloma not having achieved remission
CPT/HCPCS: 36415; 80048; 80076; 83615; 83735; 84550; 85025; 96365; 96401; J9041

== ENCOUNTER 2022-08-20 13:35 | Day surgery (SDC) | payer OTHER, BC ==
[2022-08-20 13:17] LABS: BASO % 0.2 % (0-2.0); EOS % 0.4 % (0-4.5); HEMATOCRIT 30.1 % (32.4-45.2); LYMPH % 10.4 % (8-40); MCHC 33.3 g/dl (32.0-36.0); MEAN PLT VOLUME 7.6 fl (7.5-11.1); MONO % 9.1 % (3.8-10.2); NEUT % 79.9 % (42.8-82.8); PLATELET COUNT 232 10^3/uL (134-434); RBC 3.35 M/mm3 (3.60-5.2); RDW 15.5 % (11.6-15.6); WHITE BLOOD COUNT 8.6 K/mm3 (4.0-10.0)
[2022-08-20 13:48] LABS: ALBUMIN 3.3 g/dl (3.4-5.0); CALCIUM 10.2 mg/dL (8.5-10.1); MAGNESIUM 1.8 mg/dL (1.8-2.4)
[2022-08-20 13:51] LABS: CREATININE 1.3 mg/dL (0.55-1.3); URIC ACID 3.6 mg/dL (2.6-7.2)
[2022-08-20 13:52] LABS: BILIRUBIN,DIRECT 0.1 mg/dL (0.0-0.2); BILIRUBIN,TOTAL 0.4 mg/dL (0.2-1)
[2022-08-20 17:32] VITALS: TEMP 98
[2022-08-20 17:36] VITALS: BP 156/69; PULSE 76; RESP 18
== END 2022-08-20 16:15 | disposition home or self-care (01) ==
LOC: JONCCHEMO 13:35
PROVIDERS: ATTEND Internal Medicine Hematology & Oncology
PROC: 3E01305 Introduction of Other Antineoplastic into Subcutaneous Tissue, Percutaneous Approach (ICD-10-PCS; principal; 2022-08-20)
PROC: 3E033GC Introduction of Other Therapeutic Substance into Peripheral Vein, Percutaneous Approach (ICD-10-PCS; 2022-08-20)
DX: Z51.11 Encounter for antineoplastic chemotherapy (principal); C90.00 Multiple myeloma not having achieved remission
CPT/HCPCS: 36415; 80048; 80076; 83615; 83735; 84550; 85025; 96365; 96401; J9041

== ENCOUNTER 2022-08-27 15:29 | Day surgery (SDC) | payer OTHER, BC ==
[2022-08-27 14:57] LABS: BASO % 0.3 % (0-2.0); EOS % 0.8 % (0-4.5); HEMATOCRIT 30.4 % (32.4-45.2); HEMOGLOBIN 10.5 GM/dL (10.7-15.3); MCH 31.3 pg (25.7-33.7); MCHC 34.6 g/dl (32.0-36.0); MEAN CELL VOLUME 90.5 fl (80-96); MEAN PLT VOLUME 7.6 fl (7.5-11.1); MONO % 8.7 % (3.8-10.2); NEUT % 79.2 % (42.8-82.8); PLATELET COUNT 215 10^3/uL (134-434); RBC 3.35 M/mm3 (3.60-5.2); RDW 15.9 % (11.6-15.6); WHITE BLOOD COUNT 8.4 K/mm3 (4.0-10.0)
[2022-08-27 15:14] LABS: CALCIUM 10.1 mg/dL (8.5-10.1)
[2022-08-27 15:15] LABS: ALBUMIN 3.3 g/dl (3.4-5.0); BLOOD UREA NITROGEN 19.4 mg/dL (7-18); MAGNESIUM 1.6 mg/dL (1.8-2.4)
[2022-08-27 15:17] LABS: BILIRUBIN,DIRECT 0.1 mg/dL (0.0-0.2); URIC ACID 2.7 mg/dL (2.6-7.2)
[2022-08-27 15:19] LABS: BILIRUBIN,TOTAL 0.3 mg/dL (0.2-1)
[2022-08-27 16:01] VITALS: RESP 20; TEMP 98.1
[2022-08-27 16:47] VITALS: BP 161/75; PULSE 74
== END 2022-08-27 17:04 | disposition home or self-care (01) ==
LOC: JONCCHEMO 15:29
PROVIDERS: ATTEND Internal Medicine Hematology & Oncology
PROC: 3E013GC Introduction of Other Therapeutic Substance into Subcutaneous Tissue, Percutaneous Approach (ICD-10-PCS; principal; 2022-08-27)
PROC: 3E033GC Introduction of Other Therapeutic Substance into Peripheral Vein, Percutaneous Approach (ICD-10-PCS; 2022-08-27)
DX: Z51.11 Encounter for antineoplastic chemotherapy (principal); C90.00 Multiple myeloma not having achieved remission
CPT/HCPCS: 36415; 80048; 80076; 83615; 83735; 84550; 85025; 96365; 96401; J9041

== ENCOUNTER 2022-09-03 13:29 | Day surgery (SDC) | payer OTHER, BC ==
[~2022-09-03 13:29] MED LIST changes: +HYDROCORTISONE 1% TOPICAL CREAM 30 GM TUBE TP ONE
[2022-09-03 14:41] LABS: BASO % 0.5 % (0-2.0); EOS % 0.5 % (0-4.5); HEMATOCRIT 30.7 % (32.4-45.2); HEMOGLOBIN 10.1 GM/dL (10.7-15.3); LYMPH % 10.5 % (8-40); MCH 30.2 pg (25.7-33.7); MEAN CELL VOLUME 91.6 fl (80-96); MEAN PLT VOLUME 8.6 fl (7.5-11.1); MONO % 7.4 % (3.8-10.2); NEUT % 81.1 % (42.8-82.8); PLATELET COUNT 219 10^3/uL (134-434); RBC 3.35 M/mm3 (3.60-5.2); RDW 16.2 % (11.6-15.6); WHITE BLOOD COUNT 9.5 K/mm3 (4.0-10.0)
[2022-09-03 15:05] LABS: BLOOD UREA NITROGEN 23.9 mg/dL (7-18); CALCIUM 9.8 mg/dL (8.5-10.1)
[2022-09-03 15:06] LABS: ALBUMIN 3.2 g/dl (3.4-5.0); MAGNESIUM 1.8 mg/dL (1.8-2.4)
[2022-09-03 15:08] LABS: BILIRUBIN,DIRECT 0.1 mg/dL (0.0-0.2); URIC ACID 3.3 mg/dL (2.6-7.2)
[2022-09-03 15:09] LABS: CREATININE 1.1 mg/dL (0.55-1.3)
[2022-09-03 15:10] LABS: BILIRUBIN,TOTAL 0.5 mg/dL (0.2-1); TOT PROT 6.8 g/dl (6.4-8.2)
[2022-09-03 17:56] VITALS: BP 127/65; PULSE 72; RESP 20; TEMP 99
[2022-09-05 18:07] LABS: FREE KAPPA,SERUM 1356.4 mg/L (3.3-19.4)
[2022-09-06 16:07] LABS: BETA-2-MICROGLOBULIN 2.5 mg/L (0.6-2.4)
[2022-09-08 16:08] LABS: FREE KAP CHN UR 341.29 mg/L (1.17-86.46); KAPPA LAMBDA RATIO URIN 51.55 (1.83-14.26)
== END 2022-09-03 14:45 | disposition home or self-care (01) ==
LOC: JONCCHEMO 13:29
PROVIDERS: ATTEND Internal Medicine Hematology & Oncology
PROC: 3E01305 Introduction of Other Antineoplastic into Subcutaneous Tissue, Percutaneous Approach (ICD-10-PCS; principal; 2022-09-03)
PROC: 3E033GC Introduction of Other Therapeutic Substance into Peripheral Vein, Percutaneous Approach (ICD-10-PCS; 2022-09-03)
DX: Z51.11 Encounter for antineoplastic chemotherapy (principal); C90.00 Multiple myeloma not having achieved remission
CPT/HCPCS: 36415; 80048; 80076; 82232; 82784; 83615; 83735; 83883; 84155; 84165; 84550; 85025; 86335; 96361; 96365; 96401; J9041

== ENCOUNTER 2022-09-10 12:32 | Day surgery (SDC) | payer OTHER, BC ==
[~2022-09-10 12:32] MED LIST changes: -HYDROCORTISONE 1% TOPICAL CREAM 30 GM TUBE TP ONE
[2022-09-10 14:08] VITALS: PULSE 72; RESP 20; TEMP 98.2
[2022-09-10 14:10] LABS: BASO % 0.3 % (0-2.0); EOS % 0.7 % (0-4.5); HEMATOCRIT 29.4 % (32.4-45.2); HEMOGLOBIN 9.6 GM/dL (10.7-15.3); LYMPH % 11.2 % (8-40); MCH 29.1 pg (25.7-33.7); MCHC 32.6 g/dl (32.0-36.0); MEAN CELL VOLUME 89.3 fl (80-96); MEAN PLT VOLUME 8.6 fl (7.5-11.1); NEUT % 79.8 % (42.8-82.8); PLATELET COUNT 203 10^3/uL (134-434); RDW 15.9 % (11.6-15.6); WHITE BLOOD COUNT 7.9 K/mm3 (4.0-10.0)
[2022-09-10 14:24] LABS: ALBUMIN 3.2 g/dl (3.4-5.0); BLOOD UREA NITROGEN 24.8 mg/dL (7-18); CALCIUM 9.7 mg/dL (8.5-10.1); MAGNESIUM 1.7 mg/dL (1.8-2.4)
[2022-09-10 14:25] LABS: URIC ACID 3.6 mg/dL (2.6-7.2)
[2022-09-10 14:26] LABS: BILIRUBIN,DIRECT 0.1 mg/dL (0.0-0.2)
[2022-09-10 14:28] LABS: TOT PROT 6.7 g/dl (6.4-8.2)
[2022-09-10 14:29] LABS: BILIRUBIN,TOTAL 0.4 mg/dL (0.2-1)
[2022-09-10 14:35] LABS: CREATININE 1.1 mg/dL (0.55-1.3)
[2022-09-10] MEDS ORDERED: INSULIN (NOVOLOG) ASPART 100 UNITS/ML 10ML VIAL SQ ONE (14:52)
[2022-09-10 15:46] VITALS: BP 108/63
== END 2022-09-10 15:54 | disposition home or self-care (01) ==
LOC: JONCCHEMO 12:32
PROVIDERS: ATTEND Internal Medicine Hematology & Oncology
PROC: 3E01305 Introduction of Other Antineoplastic into Subcutaneous Tissue, Percutaneous Approach (ICD-10-PCS; principal; 2022-09-10)
PROC: 3E033GC Introduction of Other Therapeutic Substance into Peripheral Vein, Percutaneous Approach (ICD-10-PCS; 2022-09-10)
DX: Z51.11 Encounter for antineoplastic chemotherapy (principal); C90.00 Multiple myeloma not having achieved remission
CPT/HCPCS: 36415; 80048; 80076; 83615; 83735; 84550; 85025; 96365; 96401; J9041

== ENCOUNTER 2022-09-16 12:20 | Day surgery (SDC) | payer OTHER, BC ==
[2022-09-16 12:59] LABS: BASO % 0.2 % (0-2.0); EOS % 0.4 % (0-4.5); HEMATOCRIT 31.7 % (32.4-45.2); HEMOGLOBIN 10.3 GM/dL (10.7-15.3); LYMPH % 10.9 % (8-40); MCH 29.1 pg (25.7-33.7); MCHC 32.4 g/dl (32.0-36.0); MEAN CELL VOLUME 89.9 fl (80-96); MEAN PLT VOLUME 8.1 fl (7.5-11.1); MONO % 8.1 % (3.8-10.2); NEUT % 80.4 % (42.8-82.8); PLATELET COUNT 201 10^3/uL (134-434); RBC 3.53 M/mm3 (3.60-5.2); RDW 16.1 % (11.6-15.6); WHITE BLOOD COUNT 7.9 K/mm3 (4.0-10.0)
[2022-09-16 13:43] LABS: CALCIUM 9.7 mg/dL (8.5-10.1); MAGNESIUM 1.8 mg/dL (1.8-2.4)
[2022-09-16 13:44] LABS: ALBUMIN 3.2 g/dl (3.4-5.0); BLOOD UREA NITROGEN 24.5 mg/dL (7-18)
[2022-09-16 13:45] LABS: BILIRUBIN,DIRECT 0.1 mg/dL (0.0-0.2)
[2022-09-16 13:46] LABS: CREATININE 1.2 mg/dL (0.55-1.3); URIC ACID 2.9 mg/dL (2.6-7.2)
[2022-09-16 13:47] LABS: TOT PROT 6.9 g/dl (6.4-8.2)
[2022-09-16 13:49] LABS: BILIRUBIN,TOTAL 0.3 mg/dL (0.2-1)
[2022-09-16] MEDS ORDERED: INSULIN (NOVOLOG) ASPART 100 UNITS/ML 10ML VIAL SQ ONE (14:36)
[2022-09-16 16:32] VITALS: RESP 18; TEMP 98.8
[2022-09-16 16:33] VITALS: BP 138/62; PULSE 68
== END 2022-09-16 15:35 | disposition home or self-care (01) ==
LOC: JONCCHEMO 12:20
PROVIDERS: ATTEND Internal Medicine Hematology & Oncology
PROC: 3E033GC Introduction of Other Therapeutic Substance into Peripheral Vein, Percutaneous Approach (ICD-10-PCS; principal; 2022-09-16)
DX: Z51.11 Encounter for antineoplastic chemotherapy (principal); C90.00 Multiple myeloma not having achieved remission
CPT/HCPCS: 36415; 80048; 80076; 83615; 83735; 84550; 85025; 96365; 96401; J9041

== ENCOUNTER 2022-09-24 13:10 | Day surgery (SDC) | payer OTHER, BC ==
[2022-09-24 13:14] LABS: BASO % 0.3 % (0-2.0); EOS % 0.5 % (0-4.5); HEMATOCRIT 29.2 % (32.4-45.2); HEMOGLOBIN 9.7 GM/dL (10.7-15.3); LYMPH % 10.9 % (8-40); MCH 29.6 pg (25.7-33.7); MCHC 33.3 g/dl (32.0-36.0); MEAN PLT VOLUME 7.5 fl (7.5-11.1); MONO % 9.4 % (3.8-10.2); NEUT % 78.9 % (42.8-82.8); PLATELET COUNT 215 10^3/uL (134-434); RBC 3.28 M/mm3 (3.60-5.2); RDW 16.1 % (11.6-15.6); WHITE BLOOD COUNT 7.9 K/mm3 (4.0-10.0)
[2022-09-24 13:49] LABS: CALCIUM 9.4 mg/dL (8.5-10.1)
[2022-09-24 13:50] LABS: ALBUMIN 3.1 g/dl (3.4-5.0); MAGNESIUM 1.9 mg/dL (1.8-2.4)
[2022-09-24 13:52] LABS: BILIRUBIN,DIRECT 0.1 mg/dL (0.0-0.2); URIC ACID 3.1 mg/dL (2.6-7.2)
[2022-09-24 13:54] LABS: BILIRUBIN,TOTAL 0.4 mg/dL (0.2-1)
[2022-09-24 13:56] LABS: TOT PROT 6.6 g/dl (6.4-8.2)
[2022-09-24 16:14] VITALS: BP 129/62; PULSE 69; RESP 20; TEMP 99.1
== END 2022-09-24 15:45 | disposition home or self-care (01) ==
LOC: JONCCHEMO 13:10
PROVIDERS: ATTEND Internal Medicine Hematology & Oncology
PROC: 3E01305 Introduction of Other Antineoplastic into Subcutaneous Tissue, Percutaneous Approach (ICD-10-PCS; principal; 2022-09-24)
PROC: 3E033GC Introduction of Other Therapeutic Substance into Peripheral Vein, Percutaneous Approach (ICD-10-PCS; 2022-09-24)
DX: Z51.11 Encounter for antineoplastic chemotherapy (principal); C90.00 Multiple myeloma not having achieved remission
CPT/HCPCS: 36415; 80048; 80076; 83615; 83735; 84550; 85025; 96365; 96401; J9041

== ENCOUNTER 2022-10-01 12:40 | Day surgery (SDC) | payer OTHER, BC ==
[2022-10-01 12:47] LABS: BASO % 0.4 % (0-2.0); EOS % 0.4 % (0-4.5); HEMATOCRIT 31.6 % (32.4-45.2); HEMOGLOBIN 10.5 GM/dL (10.7-15.3); LYMPH % 10.7 % (8-40); MCH 29.6 pg (25.7-33.7); MCHC 33.2 g/dl (32.0-36.0); MEAN CELL VOLUME 89.2 fl (80-96); MEAN PLT VOLUME 7.5 fl (7.5-11.1); NEUT % 80.5 % (42.8-82.8); PLATELET COUNT 210 10^3/uL (134-434); RBC 3.55 M/mm3 (3.60-5.2); RDW 16.3 % (11.6-15.6); WHITE BLOOD COUNT 7.5 K/mm3 (4.0-10.0)
[2022-10-01 13:12] LABS: MAGNESIUM 1.9 mg/dL (1.8-2.4)
[2022-10-01 13:13] LABS: ALBUMIN 3.2 g/dl (3.4-5.0); BLOOD UREA NITROGEN 20.8 mg/dL (7-18)
[2022-10-01 13:14] LABS: URIC ACID 3.5 mg/dL (2.6-7.2)
[2022-10-01 13:15] LABS: BILIRUBIN,DIRECT 0.1 mg/dL (0.0-0.2)
[2022-10-01 13:17] LABS: TOT PROT 6.9 g/dl (6.4-8.2)
[2022-10-01 13:18] LABS: BILIRUBIN,TOTAL 0.4 mg/dL (0.2-1)
[2022-10-01] MEDS ORDERED: INSULIN (NOVOLOG) ASPART 100 UNITS/ML 10ML VIAL SQ ONE (13:20)
[2022-10-01] MEDS ORDERED: MINERAL OIL/PET HY-PHL TOPICAL OINTMENT 454 GM JAR TP SCH (14:00)
[2022-10-01 16:15] VITALS: BP 142/67; PULSE 69; RESP 18; TEMP 98.9
== END 2022-10-01 15:20 | disposition home or self-care (01) ==
LOC: JONCCHEMO 12:40
PROVIDERS: ATTEND Internal Medicine Hematology & Oncology
PROC: 3E01305 Introduction of Other Antineoplastic into Subcutaneous Tissue, Percutaneous Approach (ICD-10-PCS; principal; 2022-10-01)
PROC: 3E033GC Introduction of Other Therapeutic Substance into Peripheral Vein, Percutaneous Approach (ICD-10-PCS; 2022-10-01)
DX: Z51.11 Encounter for antineoplastic chemotherapy (principal); C90.00 Multiple myeloma not having achieved remission; E11.9 Type 2 diabetes mellitus without complications
CPT/HCPCS: 36415; 80048; 80076; 83615; 83735; 84550; 85025; 96365; 96372; 96401; J9041

== ENCOUNTER 2022-10-08 12:09 | Day surgery (SDC) | payer OTHER, BC ==
[2022-10-08 13:13] LABS: BASO % 0.5 % (0-2.0); EOS % 0.3 % (0-4.5); HEMATOCRIT 28.6 % (32.4-45.2); HEMOGLOBIN 9.8 GM/dL (10.7-15.3); LYMPH % 10.7 % (8-40); MCH 30.4 pg (25.7-33.7); MCHC 34.1 g/dl (32.0-36.0); MEAN CELL VOLUME 89.2 fl (80-96); MEAN PLT VOLUME 8.2 fl (7.5-11.1); MONO % 7.9 % (3.8-10.2); NEUT % 80.6 % (42.8-82.8); PLATELET COUNT 190 10^3/uL (134-434); RDW 16.1 % (11.6-15.6); WHITE BLOOD COUNT 7.6 K/mm3 (4.0-10.0)
[2022-10-08 13:38] LABS: MAGNESIUM 1.5 mg/dL (1.8-2.4)
[2022-10-08 13:39] LABS: ALBUMIN 2.9 g/dl (3.4-5.0); CALCIUM 9.5 mg/dL (8.5-10.1)
[2022-10-08 13:40] LABS: BLOOD UREA NITROGEN 26.3 mg/dL (7-18)
[2022-10-08 13:41] LABS: CREATININE 1.1 mg/dL (0.55-1.3); URIC ACID 2.6 mg/dL (2.6-7.2)
[2022-10-08 13:42] LABS: BILIRUBIN,DIRECT 0.1 mg/dL (0.0-0.2)
[2022-10-08 13:43] LABS: TOT PROT 6.6 g/dl (6.4-8.2)
[2022-10-08 13:44] LABS: BILIRUBIN,TOTAL 0.5 mg/dL (0.2-1)
[2022-10-08] MEDS ORDERED: INSULIN (NOVOLOG) ASPART 100 UNITS/ML 10ML VIAL SQ ONE (14:15)
[2022-10-08] MEDS ORDERED: MAGNESIUM 2GM/50ML STERILE WATER IVPB IVPB ONE (14:15)
[2022-10-08 16:58] VITALS: RESP 16; TEMP 98.8
[2022-10-08 17:09] VITALS: BP 140/69; PULSE 74
== END 2022-10-08 16:00 | disposition home or self-care (01) ==
LOC: JONCCHEMO 12:09
PROVIDERS: ATTEND Internal Medicine Hematology & Oncology
PROC: 3E033GC Introduction of Other Therapeutic Substance into Peripheral Vein, Percutaneous Approach (ICD-10-PCS; principal; 2022-10-08)
DX: Z51.11 Encounter for antineoplastic chemotherapy (principal); C90.00 Multiple myeloma not having achieved remission; E11.9 Type 2 diabetes mellitus without complications
CPT/HCPCS: 36415; 80048; 80076; 83615; 83735; 84550; 85025; 96365; 96401; J9041

== ENCOUNTER 2022-10-15 13:08 | Day surgery (SDC) | payer OTHER, BC ==
[2022-10-15] MEDS ORDERED: MINERAL OIL/PET HY-PHL TOPICAL OINTMENT 454 GM JAR TP SCH (13:15)
[2022-10-15 14:29] VITALS: RESP 20; TEMP 98.4
[2022-10-15 14:39] LABS: BASO % 0.3 % (0-2.0); EOS % 0.5 % (0-4.5); HEMATOCRIT 28.8 % (32.4-45.2); HEMOGLOBIN 9.8 GM/dL (10.7-15.3); LYMPH % 11.2 % (8-40); MCH 30.3 pg (25.7-33.7); MEAN CELL VOLUME 89.3 fl (80-96); MEAN PLT VOLUME 8.5 fl (7.5-11.1); MONO % 7.8 % (3.8-10.2); NEUT % 80.2 % (42.8-82.8); PLATELET COUNT 213 10^3/uL (134-434); RBC 3.22 M/mm3 (3.60-5.2); RDW 16.1 % (11.6-15.6); WHITE BLOOD COUNT 7.5 K/mm3 (4.0-10.0)
[2022-10-15 15:00] LABS: CALCIUM 9.8 mg/dL (8.5-10.1); MAGNESIUM 1.9 mg/dL (1.8-2.4)
[2022-10-15 15:01] LABS: BLOOD UREA NITROGEN 26.1 mg/dL (7-18)
[2022-10-15 15:03] LABS: BILIRUBIN,DIRECT 0.1 mg/dL (0.0-0.2); URIC ACID 3.3 mg/dL (2.6-7.2)
[2022-10-15 15:05] LABS: TOT PROT 6.9 g/dl (6.4-8.2)
[2022-10-15 15:06] LABS: BILIRUBIN,TOTAL 0.2 mg/dL (0.2-1)
[2022-10-15] MEDS ORDERED: INSULIN (NOVOLOG) ASPART 100 UNITS/ML 10ML VIAL SQ ONE (15:30)
[2022-10-15 16:52] VITALS: BP 146/82; PULSE 71
== END 2022-10-15 16:00 | disposition home or self-care (01) ==
LOC: JONCCHEMO 13:08
PROVIDERS: ATTEND Internal Medicine Hematology & Oncology
PROC: 3E01305 Introduction of Other Antineoplastic into Subcutaneous Tissue, Percutaneous Approach (ICD-10-PCS; principal; 2022-10-15)
PROC: 3E033GC Introduction of Other Therapeutic Substance into Peripheral Vein, Percutaneous Approach (ICD-10-PCS; 2022-10-15)
PROC: 3E013VG Introduction of Insulin into Subcutaneous Tissue, Percutaneous Approach (ICD-10-PCS; 2022-10-15)
PROC: 3E0337Z Introduction of Electrolytic and Water Balance Substance into Peripheral Vein, Percutaneous Approach (ICD-10-PCS; 2022-10-15)
PROC: 3E013VG Introduction of Insulin into Subcutaneous Tissue, Percutaneous Approach (ICD-10-PCS; 2022-10-15)
DX: Z51.11 Encounter for antineoplastic chemotherapy (principal); C90.00 Multiple myeloma not having achieved remission
CPT/HCPCS: 36415; 80048; 80076; 82232; 82784; 83615; 83735; 84155; 84165; 84550; 85025; 86334; 86335; 96361; 96365; 96372; 96401; J9041

== ENCOUNTER 2022-10-15 16:45 | Emergency (ER) | payer OTHER, BC ==
[2022-10-15 16:50] VITALS: BP 155/69; PULSE 75; RESP 16; TEMP 98.8; BMI 26.4
== END 2022-10-15 19:50 | disposition home or self-care (01) ==
LOC: JER 16:45
DX: M54.6 Pain in thoracic spine (principal); W01.0XXA Fall on same level from slipping, tripping and stumbling without subsequent striking against object, initial encounter
CPT/HCPCS: 70450-TC; 72125-TC; 72128-TC; 99284-25

== ENCOUNTER 2022-10-22 12:46 | Day surgery (SDC) | payer OTHER, BC ==
[2022-10-22] MEDS ORDERED: MAGNESIUM SULFATE IN WATER 2 GM/50 ML IVPB IVPB ONE (13:45)
[2022-10-22] MEDS ORDERED: SODIUM CHLORIDE 250 ML IV ONE ×2 (13:45→14:40)
[2022-10-22] MEDS ORDERED: amLODIPine BESYLATE 10 MG TABLET (FP) PO ONE (13:45)
[2022-10-22] MEDS ORDERED: BORTEZOMIB 2.5 MG/ML SUB-Q INJECTION SQ ONE (13:45)
[2022-10-22] MEDS ORDERED: POTASSIUM CHLORIDE TABS 20 MEQ TABLET.ER (FP) PO ONE (13:45)
[2022-10-22] MEDS ORDERED: DEXAMETHASONE 4 MG TABLET (FP) PO ONE (13:45)
[2022-10-22 13:50] LABS: BASO % 0.4 % (0-2.0); EOS % 0.2 % (0-4.5); HEMATOCRIT 29.3 % (32.4-45.2); HEMOGLOBIN 10.1 GM/dL (10.7-15.3); LYMPH % 9.7 % (8-40); MCH 31.4 pg (25.7-33.7); MCHC 34.6 g/dl (32.0-36.0); MEAN CELL VOLUME 90.7 fl (80-96); MEAN PLT VOLUME 8.6 fl (7.5-11.1); MONO % 7.4 % (3.8-10.2); NEUT % 82.3 % (42.8-82.8); PLATELET COUNT 218 10^3/uL (134-434); RBC 3.23 M/mm3 (3.60-5.2); RDW 16.7 % (11.6-15.6); WHITE BLOOD COUNT 8.1 K/mm3 (4.0-10.0)
[2022-10-22 14:11] LABS: CALCIUM 9.1 mg/dL (8.5-10.1)
[2022-10-22 14:12] LABS: BLOOD UREA NITROGEN 18.2 mg/dL (7-18); MAGNESIUM 1.9 mg/dL (1.8-2.4)
[2022-10-22 14:14] LABS: BILIRUBIN,DIRECT 0.1 mg/dL (0.0-0.2); URIC ACID 2.9 mg/dL (2.6-7.2)
[2022-10-22 14:16] LABS: BILIRUBIN,TOTAL 0.4 mg/dL (0.2-1); TOT PROT 6.9 g/dl (6.4-8.2)
[2022-10-22] MEDS ORDERED: INSULIN (NOVOLOG) ASPART 100 UNITS/ML 10ML VIAL SQ ONE (14:31)
[2022-10-22 16:20] VITALS: PULSE 75; RESP 20; TEMP 98.1
[2022-10-22 16:26] VITALS: BP 140/66
== END 2022-10-22 17:00 | disposition home or self-care (01) ==
LOC: JONCCHEMO 12:46
PROVIDERS: ATTEND Internal Medicine Hematology & Oncology
PROC: 3E01305 Introduction of Other Antineoplastic into Subcutaneous Tissue, Percutaneous Approach (ICD-10-PCS; principal; 2022-10-22)
PROC: 3E033GC Introduction of Other Therapeutic Substance into Peripheral Vein, Percutaneous Approach (ICD-10-PCS; 2022-10-22)
DX: Z51.11 Encounter for antineoplastic chemotherapy (principal); C90.00 Multiple myeloma not having achieved remission
CPT/HCPCS: 36415; 80048; 80076; 83615; 83735; 84550; 85025; 96365; 96367; 96401; J9041

== ENCOUNTER 2022-11-05 13:04 | Day surgery (SDC) | payer OTHER, BC ==
[2022-11-05 13:56] LABS: BASO % 0.4 % (0-2.0); EOS % 0.4 % (0-4.5); HEMATOCRIT 29.9 % (32.4-45.2); HEMOGLOBIN 10.1 GM/dL (10.7-15.3); MCH 30.4 pg (25.7-33.7); MCHC 33.7 g/dl (32.0-36.0); MEAN CELL VOLUME 90.2 fl (80-96); MEAN PLT VOLUME 7.6 fl (7.5-11.1); MONO % 7.9 % (3.8-10.2); NEUT % 76.3 % (42.8-82.8); PLATELET COUNT 249 10^3/uL (134-434); RBC 3.31 M/mm3 (3.60-5.2); RDW 15.9 % (11.6-15.6); WHITE BLOOD COUNT 7.1 K/mm3 (4.0-10.0)
[2022-11-05] MEDS ORDERED: SODIUM CHLORIDE 250 ML IV ONE ×2 (14:00→15:00)
[2022-11-05] MEDS ORDERED: amLODIPine BESYLATE 10 MG TABLET (FP) PO ONE (14:00)
[2022-11-05] MEDS ORDERED: POTASSIUM CHLORIDE TABS 20 MEQ TABLET.ER (FP) PO ONE (14:00)
[2022-11-05] MEDS ORDERED: DEXAMETHASONE 4 MG TABLET (FP) PO ONE (14:00)
[2022-11-05] MEDS ORDERED: MAGNESIUM SULFATE IN WATER 2 GM/50 ML IVPB IVPB ONE (14:00)
[2022-11-05 14:18] LABS: POTASSIUM 3.7 mmol/L (3.5-5.1)
[2022-11-05 14:20] LABS: BLOOD UREA NITROGEN 19.6 mg/dL (7-18)
[2022-11-05 14:22] LABS: BILIRUBIN,DIRECT 0.1 mg/dL (0.0-0.2); URIC ACID 3.2 mg/dL (2.6-7.2)
[2022-11-05 14:23] LABS: CREATININE 1.1 mg/dL (0.55-1.3)
[2022-11-05 14:24] LABS: BILIRUBIN,TOTAL 0.3 mg/dL (0.2-1); TOT PROT 7.5 g/dl (6.4-8.2)
[2022-11-05] MEDS ORDERED: BORTEZOMIB 2.5 MG/ML SUB-Q INJECTION SQ ONE (15:00)
[2022-11-05] MEDS ORDERED: INSULIN (NOVOLOG) ASPART 100 UNITS/ML 10ML VIAL SQ ONE (15:09)
[2022-11-05] MEDS ORDERED: INSULIN (NOVOLOG) ASPART 100 UNITS/ML 10ML VIAL ONE (15:25)
[2022-11-05 17:40] VITALS: BP 151/70; PULSE 83; RESP 20; TEMP 99
== END 2022-11-05 17:00 | disposition home or self-care (01) ==
LOC: JONCCHEMO 13:04 → J7W 13:22 → JONCCHEMO 17:00
PROVIDERS: ATTEND Internal Medicine Hematology & Oncology
PROC: 3E01305 Introduction of Other Antineoplastic into Subcutaneous Tissue, Percutaneous Approach (ICD-10-PCS; principal; 2022-11-05)
PROC: 3E033GC Introduction of Other Therapeutic Substance into Peripheral Vein, Percutaneous Approach (ICD-10-PCS; 2022-11-05)
DX: Z51.11 Encounter for antineoplastic chemotherapy (principal); C90.00 Multiple myeloma not having achieved remission
CPT/HCPCS: 36415; 80048; 80076; 83615; 84550; 85025; 96365; 96401; J9041

== ENCOUNTER 2022-11-12 12:46 | Day surgery (SDC) | payer OTHER, BC ==
[2022-11-12 13:37] LABS: BASO % 0.5 % (0-2.0); EOS % 0.5 % (0-4.5); HEMATOCRIT 29.1 % (32.4-45.2); HEMOGLOBIN 9.9 GM/dL (10.7-15.3); LYMPH % 13.1 % (8-40); MCH 30.4 pg (25.7-33.7); MEAN CELL VOLUME 89.6 fl (80-96); MEAN PLT VOLUME 8.4 fl (7.5-11.1); NEUT % 77.9 % (42.8-82.8); PLATELET COUNT 203 10^3/uL (134-434); RBC 3.24 M/mm3 (3.60-5.2); WHITE BLOOD COUNT 6.9 K/mm3 (4.0-10.0)
[2022-11-12 13:49] LABS: POTASSIUM 3.4 mmol/L (3.5-5.1)
[2022-11-12 13:52] LABS: CALCIUM 9.7 mg/dL (8.5-10.1)
[2022-11-12 13:53] LABS: ALBUMIN 2.9 g/dl (3.4-5.0); BLOOD UREA NITROGEN 23.2 mg/dL (7-18); MAGNESIUM 1.8 mg/dL (1.8-2.4)
[2022-11-12 13:55] LABS: BILIRUBIN,DIRECT 0.1 mg/dL (0.0-0.2); URIC ACID 2.5 mg/dL (2.6-7.2)
[2022-11-12] MEDS ORDERED: INSULIN (NOVOLOG) ASPART 100 UNITS/ML 10ML VIAL SQ ONE (13:55)
[2022-11-12 13:57] LABS: BILIRUBIN,TOTAL 0.3 mg/dL (0.2-1); TOT PROT 7.3 g/dl (6.4-8.2)
[2022-11-12] MEDS ORDERED: MINERAL OIL/PET HY-PHL TOPICAL OINTMENT 454 GM JAR TP SCH (15:00)
[2022-11-12 18:05] VITALS: BP 182/81; PULSE 72; RESP 20; TEMP 98.9
== END 2022-11-12 17:00 | disposition home or self-care (01) ==
LOC: JONCCHEMO 12:46 → J7W 12:53 → JONCCHEMO 17:00
PROVIDERS: ATTEND Internal Medicine Hematology & Oncology
PROC: 3E01305 Introduction of Other Antineoplastic into Subcutaneous Tissue, Percutaneous Approach (ICD-10-PCS; principal; 2022-11-12)
PROC: 3E033GC Introduction of Other Therapeutic Substance into Peripheral Vein, Percutaneous Approach (ICD-10-PCS; 2022-11-12)
DX: Z51.11 Encounter for antineoplastic chemotherapy (principal); C90.00 Multiple myeloma not having achieved remission
CPT/HCPCS: 36415; 80048; 80076; 83615; 83735; 84550; 85025; 96361; 96365; 96401; J9041

== ENCOUNTER 2022-11-19 12:23 | Day surgery (SDC) | payer OTHER, BC ==
[2022-11-19 13:19] LABS: BASO % 0.2 % (0-2.0); EOS % 0.4 % (0-4.5); HEMOGLOBIN 9.2 GM/dL (10.7-15.3); MCH 29.8 pg (25.7-33.7); MEAN CELL VOLUME 90.2 fl (80-96); MEAN PLT VOLUME 8.2 fl (7.5-11.1); MONO % 6.4 % (3.8-10.2); PLATELET COUNT 189 10^3/uL (134-434); RDW 15.7 % (11.6-15.6); WHITE BLOOD COUNT 8.1 K/mm3 (4.0-10.0)
[2022-11-19 13:53] LABS: CHLORIDE 101 mmol/L (98-107); POTASSIUM 3.7 mmol/L (3.5-5.1); SODIUM 137 mmol/L (136-145)
[2022-11-19 13:54] LABS: CALCIUM 9.8 mg/dL (8.5-10.1)
[2022-11-19 13:55] LABS: ANION GAP 9 MMOL/L (8-16); BLOOD UREA NITROGEN 43.3 mg/dL (7-18); CO2 27 mmol/L (21-32); MAGNESIUM 1.8 mg/dL (1.8-2.4)
[2022-11-19 13:57] LABS: URIC ACID 3.1 mg/dL (2.6-7.2)
[2022-11-19 13:58] LABS: CREATININE 1.4 mg/dL (0.55-1.3)
[2022-11-19 13:59] LABS: ALBUMIN 2.8 g/dl (3.4-5.0); LDH 123 U/L (84-246)
[2022-11-19 14:01] LABS: GLUCOSE,RANDOM 494 mg/dL (74-106)
[2022-11-19 14:02] LABS: BILIRUBIN,DIRECT 0.1 mg/dL (0.0-0.2)
[2022-11-19 14:04] LABS: BILIRUBIN,TOTAL 0.2 mg/dL (0.2-1)
[2022-11-19] MEDS ORDERED: INSULIN (NOVOLOG) ASPART 100 UNITS/ML 10ML VIAL SQ ONE ×2 (14:10→16:54)
[2022-11-19] MEDS ORDERED: SODIUM CHLORIDE 0.9% 500 ML INFUS.BAG IV ONE (14:11)
[2022-11-19] MEDS ORDERED: INSULIN (NOVOLOG) ASPART 100 UNITS/ML 10ML VIAL ONE ×2 (14:15→16:56)
[2022-11-19 16:56] VITALS: TEMP 98.6
[2022-11-19 17:21] VITALS: BP 157/79; PULSE 79; RESP 18
[2022-11-20 17:07] LABS: FREE KAPPA,SERUM 2812.3 mg/L (3.3-19.4)
[2022-11-22 06:09] LABS: FREE KAP CHN UR 1638.01 mg/L (1.17-86.46); KAPPA LAMBDA RATIO URIN 194.54 (1.83-14.26)
== END 2022-11-19 17:23 | disposition home or self-care (01) ==
LOC: JONCCHEMO 12:23 → J7W 12:29 → JONCCHEMO 17:23
PROVIDERS: ATTEND Internal Medicine Hematology & Oncology
PROC: 3E01305 Introduction of Other Antineoplastic into Subcutaneous Tissue, Percutaneous Approach (ICD-10-PCS; principal; 2022-11-19)
PROC: 3E0337Z Introduction of Electrolytic and Water Balance Substance into Peripheral Vein, Percutaneous Approach (ICD-10-PCS; 2022-11-19)
DX: Z51.11 Encounter for antineoplastic chemotherapy (principal); C90.00 Multiple myeloma not having achieved remission; E11.9 Type 2 diabetes mellitus without complications
CPT/HCPCS: 36415; 80048; 80076; 82232; 82784; 82962; 83615; 83735; 83883; 84155; 84165; 84550; 85025; 86335; 96360; 96361; 96401; J9041

== ENCOUNTER 2022-12-10 12:50 | Day surgery (SDC) | payer OTHER, BC ==
[~2022-12-10 12:50] MED LIST changes: +ACETAMINOPHEN 325 MG TABLET (FP) PO ONE; +DARATUMUMAB-HYALURONIDASE-FIHJ (FASPRO) 15 ML VIAL SQ ONE; +DEXAMETHASONE SODIUM PHOSPHATE 20 MG, DIPHENHYDRAMINE 25 MG in SODIUM CHLORIDE 100 ML IVPB ONE
[2022-12-10 14:18] LABS: BASO % 0.3 % (0-2.0); EOS % 0.7 % (0-4.5); HEMATOCRIT 29.4 % (32.4-45.2); HEMOGLOBIN 9.8 GM/dL (10.7-15.3); LYMPH % 21.6 % (8-40); MCH 29.9 pg (25.7-33.7); MCHC 33.3 g/dl (32.0-36.0); MEAN PLT VOLUME 7.4 fl (7.5-11.1); MONO % 10.3 % (3.8-10.2); NEUT % 67.1 % (42.8-82.8); PLATELET COUNT 190 10^3/uL (134-434); RBC 3.27 M/mm3 (3.60-5.2); RDW 15.5 % (11.6-15.6); WHITE BLOOD COUNT 5.2 K/mm3 (4.0-10.0)
[2022-12-10 14:35] LABS: POTASSIUM 3.8 mmol/L (3.5-5.1)
[2022-12-10 14:39] LABS: MAGNESIUM 1.8 mg/dL (1.8-2.4)
[2022-12-10 14:40] LABS: ALBUMIN 3.1 g/dl (3.4-5.0); BLOOD UREA NITROGEN 27.6 mg/dL (7-18); CALCIUM 10.5 mg/dL (8.5-10.1); URIC ACID 4.2 mg/dL (2.6-7.2)
[2022-12-10 14:41] LABS: CREATININE 1.3 mg/dL (0.55-1.3)
[2022-12-10 14:42] LABS: TOT PROT 7.9 g/dl (6.4-8.2)
[2022-12-10 14:43] LABS: BILIRUBIN,DIRECT 0.1 mg/dL (0.0-0.2)
[2022-12-10] MEDS ORDERED: INSULIN (NOVOLOG) ASPART 100 UNITS/ML 10ML VIAL SQ ONE (14:43)
[2022-12-10] MEDS ORDERED: SODIUM CHLORIDE 0.9% 500 ML INFUS.BAG IV ONE (14:44)
[2022-12-10 14:45] LABS: BILIRUBIN,TOTAL 0.2 mg/dL (0.2-1)
[2022-12-10 15:51] VITALS: TEMP 97.1
[2022-12-10] MEDS ORDERED: amLODIPine BESYLATE 10 MG TABLET (FP) PO ONE (15:56)
[2022-12-10 18:48] VITALS: BP 184/80; PULSE 87; RESP 20
== END 2022-12-10 18:51 | disposition home or self-care (01) ==
LOC: J7W 12:50 → JONCCHEMO 12:50
PROVIDERS: ATTEND Internal Medicine Hematology & Oncology
PROC: 3E01305 Introduction of Other Antineoplastic into Subcutaneous Tissue, Percutaneous Approach (ICD-10-PCS; principal; 2022-12-10)
PROC: 3E0337Z Introduction of Electrolytic and Water Balance Substance into Peripheral Vein, Percutaneous Approach (ICD-10-PCS; 2022-12-10)
PROC: 3E033GC Introduction of Other Therapeutic Substance into Peripheral Vein, Percutaneous Approach (ICD-10-PCS; 2022-12-10)
DX: Z51.11 Encounter for antineoplastic chemotherapy (principal); C90.00 Multiple myeloma not having achieved remission
CPT/HCPCS: 36415; 80048; 80076; 83615; 83735; 84550; 85025; 86850; 86900; 86901; 96361; 96365; 96401; J9144

== ENCOUNTER 2022-12-17 14:21 | Day surgery (SDC) | payer OTHER, BC ==
[2022-12-17 14:40] LABS: BASO % 0.6 % (0-2.0); EOS % 0.6 % (0-4.5); HEMATOCRIT 31.2 % (32.4-45.2); HEMOGLOBIN 10.2 GM/dL (10.7-15.3); MCH 29.9 pg (25.7-33.7); MCHC 32.8 g/dl (32.0-36.0); MEAN PLT VOLUME 7.9 fl (7.5-11.1); NEUT % 73.8 % (42.8-82.8); PLATELET COUNT 205 10^3/uL (134-434); RBC 3.43 M/mm3 (3.60-5.2); RDW 15.2 % (11.6-15.6); WHITE BLOOD COUNT 4.3 K/mm3 (4.0-10.0)
[2022-12-17 15:01] LABS: POTASSIUM 3.8 mmol/L (3.5-5.1)
[2022-12-17 15:04] LABS: MAGNESIUM 1.7 mg/dL (1.8-2.4)
[2022-12-17 15:05] LABS: ALBUMIN 3.1 g/dl (3.4-5.0); BLOOD UREA NITROGEN 27.4 mg/dL (7-18)
[2022-12-17 15:06] LABS: URIC ACID 4.5 mg/dL (2.6-7.2)
[2022-12-17 15:07] LABS: BILIRUBIN,DIRECT 0.2 mg/dL (0.0-0.2); CREATININE 1.2 mg/dL (0.55-1.3)
[2022-12-17 15:08] LABS: TOT PROT 8.1 g/dl (6.4-8.2)
[2022-12-17 15:10] LABS: BILIRUBIN,TOTAL 0.5 mg/dL (0.2-1)
[2022-12-17] MEDS ORDERED: INSULIN (NOVOLOG) ASPART 100 UNITS/ML 10ML VIAL SQ ONE (15:22)
[2022-12-17] MEDS ORDERED: SODIUM CHLORIDE 0.9% 500 ML INFUS.BAG IV ONE (15:22)
[2022-12-17 17:43] LABS: PHOSPHOROUS 2.4 mg/dL (2.5-4.9)
[2022-12-17 18:50] VITALS: BP 149/70; PULSE 73; RESP 20; TEMP 98.4
== END 2022-12-17 20:30 | disposition home or self-care (01) ==
LOC: JONCCHEMO 14:21 → J7W 14:22 → JONCCHEMO 20:30
PROVIDERS: ATTEND Internal Medicine Hematology & Oncology
PROC: 3E01305 Introduction of Other Antineoplastic into Subcutaneous Tissue, Percutaneous Approach (ICD-10-PCS; principal; 2022-12-17)
PROC: 3E033GC Introduction of Other Therapeutic Substance into Peripheral Vein, Percutaneous Approach (ICD-10-PCS; 2022-12-17)
DX: Z51.11 Encounter for antineoplastic chemotherapy (principal); C90.00 Multiple myeloma not having achieved remission; C79.51 Secondary malignant neoplasm of bone
CPT/HCPCS: 36415; 73060-TC-LT-FY; 80048; 80076; 82306; 83615; 83735; 84100; 84550; 85025; 96365; 96401; J9144

== ENCOUNTER 2022-12-24 13:37 | Day surgery (SDC) | payer OTHER, BC ==
[~2022-12-24 13:37] MED LIST changes: -BORTEZOMIB 2.5 MG/ML SUB-Q INJECTION SQ ONE; -DEXAMETHASONE 4 MG TABLET (FP) PO ONE; +MAGNESIUM 2GM/50ML STERILE WATER IVPB IVPB ONE; -MAGNESIUM SULFATE IN WATER 2 GM/50 ML IVPB IVPB ONE; -POTASSIUM CHLORIDE TABS 20 MEQ TABLET.ER (FP) PO ONE; +POTASSIUM CHLORIDE TABS 20 MEQ TABLET.ER (FP) PO SCH
[2022-12-24 14:18] LABS: BASO % 0.4 % (0-2.0); EOS % 0.2 % (0-4.5); HEMATOCRIT 30.4 % (32.4-45.2); HEMOGLOBIN 9.9 GM/dL (10.7-15.3); LYMPH % 15.3 % (8-40); MCH 29.1 pg (25.7-33.7); MCHC 32.7 g/dl (32.0-36.0); MEAN PLT VOLUME 7.3 fl (7.5-11.1); MONO % 11.1 % (3.8-10.2); PLATELET COUNT 228 10^3/uL (134-434); RBC 3.42 M/mm3 (3.60-5.2); RDW 15.4 % (11.6-15.6); WHITE BLOOD COUNT 4.8 K/mm3 (4.0-10.0)
[2022-12-24 14:35] LABS: POTASSIUM 3.9 mmol/L (3.5-5.1)
[2022-12-24 14:37] LABS: ALBUMIN 2.8 g/dl (3.4-5.0); BLOOD UREA NITROGEN 16.8 mg/dL (7-18); CALCIUM 10.4 mg/dL (8.5-10.1)
[2022-12-24 14:40] LABS: URIC ACID 3.4 mg/dL (2.6-7.2)
[2022-12-24 14:41] LABS: TOT PROT 7.6 g/dl (6.4-8.2)
[2022-12-24 14:42] LABS: BILIRUBIN,TOTAL 0.3 mg/dL (0.2-1)
[2022-12-24] MEDS ORDERED: INSULIN (NOVOLOG) ASPART 100 UNITS/ML 10ML VIAL SQ ONE (14:45)
[2022-12-24 18:33] VITALS: RESP 20; TEMP 98
[2022-12-24 18:42] VITALS: BP 179/83; PULSE 80
== END 2022-12-24 17:45 | disposition home or self-care (01) ==
LOC: JONCCHEMO 13:37 → J7W 13:38 → JONCCHEMO 17:45
PROVIDERS: ATTEND Internal Medicine Hematology & Oncology
PROC: 3E01305 Introduction of Other Antineoplastic into Subcutaneous Tissue, Percutaneous Approach (ICD-10-PCS; principal; 2022-12-24)
PROC: 3E033GC Introduction of Other Therapeutic Substance into Peripheral Vein, Percutaneous Approach (ICD-10-PCS; 2022-12-24)
DX: Z51.11 Encounter for antineoplastic chemotherapy (principal); C90.00 Multiple myeloma not having achieved remission; C79.51 Secondary malignant neoplasm of bone
CPT/HCPCS: 36415; 80053; 83615; 83735; 84550; 85025; 96365; 96401; J9144

== ENCOUNTER 2022-12-31 13:38 | Day surgery (SDC) | payer OTHER, BC ==
[~2022-12-31 13:38] MED LIST changes: -MAGNESIUM 2GM/50ML STERILE WATER IVPB IVPB ONE; +MAGNESIUM SULFATE IN WATER 2 GM/50 ML IVPB IVPB ONE; +POTASSIUM CHLORIDE TABS 20 MEQ TABLET.ER (FP) PO ONE; -POTASSIUM CHLORIDE TABS 20 MEQ TABLET.ER (FP) PO SCH; +oxyCODONE HCL 5 MG TABLET PO ONE
[2022-12-31 14:53] LABS: BASO % 0.3 % (0-2.0); EOS % 0.2 % (0-4.5); HEMATOCRIT 29.4 % (32.4-45.2); HEMOGLOBIN 9.4 GM/dL (10.7-15.3); LYMPH % 12.4 % (8-40); MCH 29.2 pg (25.7-33.7); MCHC 32.1 g/dl (32.0-36.0); MEAN CELL VOLUME 90.9 fl (80-96); MEAN PLT VOLUME 7.9 fl (7.5-11.1); MONO % 9.4 % (3.8-10.2); NEUT % 77.7 % (42.8-82.8); PLATELET COUNT 207 10^3/uL (134-434); RBC 3.23 M/mm3 (3.60-5.2); WHITE BLOOD COUNT 4.3 K/mm3 (4.0-10.0)
[2022-12-31 15:21] LABS: POTASSIUM 3.4 mmol/L (3.5-5.1)
[2022-12-31 15:23] LABS: CALCIUM 9.7 mg/dL (8.5-10.1)
[2022-12-31 15:24] LABS: ALBUMIN 2.8 g/dl (3.4-5.0); BLOOD UREA NITROGEN 21.2 mg/dL (7-18)
[2022-12-31 15:25] LABS: URIC ACID 4.4 mg/dL (2.6-7.2)
[2022-12-31 15:27] LABS: CREATININE 1.1 mg/dL (0.55-1.3)
[2022-12-31 15:28] LABS: BILIRUBIN,TOTAL 0.4 mg/dL (0.2-1); TOT PROT 7.4 g/dl (6.4-8.2)
[2022-12-31] MEDS ORDERED: INSULIN (NOVOLOG) ASPART 100 UNITS/ML 10ML VIAL SQ ONE (15:56)
[2022-12-31 18:15] VITALS: BP 181/86; PULSE 83; RESP 20; TEMP 98.7
== END 2022-12-31 17:55 | disposition home or self-care (01) ==
LOC: JONCCHEMO 13:38 → J7W 13:51 → JONCCHEMO 17:55
PROVIDERS: ATTEND Internal Medicine Hematology & Oncology
PROC: 3E01305 Introduction of Other Antineoplastic into Subcutaneous Tissue, Percutaneous Approach (ICD-10-PCS; principal; 2022-12-31)
PROC: 3E033GC Introduction of Other Therapeutic Substance into Peripheral Vein, Percutaneous Approach (ICD-10-PCS; 2022-12-31)
DX: Z51.11 Encounter for antineoplastic chemotherapy (principal); C90.00 Multiple myeloma not having achieved remission
CPT/HCPCS: 36415; 80053; 83615; 83735; 84550; 85025; 96365; 96367; 96401; J9144

== ENCOUNTER 2023-01-14 13:18 | Day surgery (SDC) | payer OTHER, BC ==
[2023-01-14 14:55] LABS: BASO % 0.6 % (0-2.0); EOS % 0.3 % (0-4.5); HEMATOCRIT 29.1 % (32.4-45.2); HEMOGLOBIN 9.4 GM/dL (10.7-15.3); LYMPH % 16.7 % (8-40); MCH 29.2 pg (25.7-33.7); MCHC 32.1 g/dl (32.0-36.0); MEAN CELL VOLUME 90.9 fl (80-96); MEAN PLT VOLUME 7.3 fl (7.5-11.1); MONO % 10.6 % (3.8-10.2); NEUT % 71.8 % (42.8-82.8); PLATELET COUNT 285 10^3/uL (134-434); RDW 15.9 % (11.6-15.6); WHITE BLOOD COUNT 4.3 K/mm3 (4.0-10.0)
[2023-01-14 15:50] LABS: POTASSIUM 3.9 mmol/L (3.5-5.1)
[2023-01-14 15:53] LABS: BLOOD UREA NITROGEN 17.7 mg/dL (7-18); CALCIUM 9.8 mg/dL (8.5-10.1); MAGNESIUM 1.9 mg/dL (1.8-2.4)
[2023-01-14 15:56] LABS: CREATININE 1.1 mg/dL (0.55-1.3); URIC ACID 4.2 mg/dL (2.6-7.2)
[2023-01-14] MEDS ORDERED: INSULIN (NOVOLOG) ASPART 100 UNITS/ML 10ML VIAL SQ ONE (16:06)
[2023-01-14 16:09] LABS: BILIRUBIN,TOTAL 0.3 mg/dL (0.2-1)
[2023-01-14 16:46] LABS: TOT PROT 7.8 g/dl (6.4-8.2)
[2023-01-14 17:59] VITALS: BP 183/74; PULSE 74; RESP 10; TEMP 97.7
[2023-01-16 18:10] LABS: FREE KAPPA,SERUM 3224.1 mg/L (3.3-19.4)
[2023-01-16 18:10] LABS: FREE KAPPA,SERUM 3391.5 mg/L (3.3-19.4)
[2023-01-17 07:07] LABS: BETA-2-MICROGLOBULIN 3.5 mg/L (0.6-2.4)
== END 2023-01-14 17:45 | disposition home or self-care (01) ==
LOC: JONCCHEMO 13:18 → J7W 13:21 → JONCCHEMO 17:45
PROVIDERS: ATTEND Internal Medicine Hematology & Oncology
PROC: 3E033GC Introduction of Other Therapeutic Substance into Peripheral Vein, Percutaneous Approach (ICD-10-PCS; principal; 2023-01-14)
PROC: 3E01305 Introduction of Other Antineoplastic into Subcutaneous Tissue, Percutaneous Approach (ICD-10-PCS; 2023-01-14)
DX: Z51.11 Encounter for antineoplastic chemotherapy (principal); C90.00 Multiple myeloma not having achieved remission
CPT/HCPCS: 36415; 80053; 82232; 82784; 83615; 83735; 83883; 84155; 84165; 84550; 85025; 96365; 96401; J9144

== ENCOUNTER 2023-02-04 13:09 | Day surgery (SDC) | payer OTHER, BC ==
[2023-02-04 15:01] LABS: BASO % 0.3 % (0-2.0); EOS % 0.3 % (0-4.5); HEMATOCRIT 29.2 % (32.4-45.2); HEMOGLOBIN 9.9 GM/dL (10.7-15.3); LYMPH % 23.1 % (8-40); MCH 29.9 pg (25.7-33.7); MCHC 33.8 g/dl (32.0-36.0); MEAN CELL VOLUME 88.4 fl (80-96); MEAN PLT VOLUME 7.4 fl (7.5-11.1); MONO % 9.6 % (3.8-10.2); NEUT % 66.7 % (42.8-82.8); PLATELET COUNT 233 10^3/uL (134-434); RBC 3.31 M/mm3 (3.60-5.2); RDW 15.9 % (11.6-15.6); WHITE BLOOD COUNT 5.8 K/mm3 (4.0-10.0)
[2023-02-04 15:24] LABS: POTASSIUM 3.1 mmol/L (3.5-5.1)
[2023-02-04 15:27] LABS: CALCIUM 9.6 mg/dL (8.5-10.1)
[2023-02-04 15:28] LABS: BLOOD UREA NITROGEN 16.2 mg/dL (7-18); MAGNESIUM 1.7 mg/dL (1.8-2.4)
[2023-02-04 15:30] LABS: URIC ACID 4.6 mg/dL (2.6-7.2)
[2023-02-04 15:32] LABS: BILIRUBIN,TOTAL 0.2 mg/dL (0.2-1); TOT PROT 7.9 g/dl (6.4-8.2)
[2023-02-04 15:44] VITALS: TEMP 98.3
[2023-02-04 16:49] VITALS: BP 162/72; PULSE 71; RESP 18
[2023-02-05 16:08] LABS: FREE KAPPA,SERUM 4672.3 mg/L (3.3-19.4)
[2023-02-06 06:17] LABS: FREE KAP CHN UR 1615.79 mg/L (1.17-86.46); KAPPA LAMBDA RATIO URIN 396.03 (1.83-14.26)
[2023-02-06 16:08] LABS: BETA-2-MICROGLOBULIN 2.5 mg/L (0.6-2.4)
== END 2023-02-04 17:00 | disposition home or self-care (01) ==
LOC: JONCCHEMO 13:09 → J7W 13:13 → JONCCHEMO 17:00
PROVIDERS: ATTEND Internal Medicine Hematology & Oncology
PROC: 3E033GC Introduction of Other Therapeutic Substance into Peripheral Vein, Percutaneous Approach (ICD-10-PCS; principal; 2023-02-04)
PROC: 3E01305 Introduction of Other Antineoplastic into Subcutaneous Tissue, Percutaneous Approach (ICD-10-PCS; 2023-02-04)
DX: Z51.11 Encounter for antineoplastic chemotherapy (principal); C90.00 Multiple myeloma not having achieved remission
CPT/HCPCS: 36415; 80053; 82232; 82784; 83615; 83735; 83883; 84155; 84165; 84550; 85025; 86335; 96365; 96401; J9144

== ENCOUNTER 2023-02-11 12:14 | Day surgery (SDC) | payer OTHER, BC ==
[2023-02-11 13:41] LABS: BASO % 0.4 % (0-2.0); EOS % 0.6 % (0-4.5); HEMATOCRIT 31.3 % (32.4-45.2); HEMOGLOBIN 10.2 GM/dL (10.7-15.3); LYMPH % 21.7 % (8-40); MCH 29.3 pg (25.7-33.7); MCHC 32.5 g/dl (32.0-36.0); MEAN CELL VOLUME 90.2 fl (80-96); MEAN PLT VOLUME 7.8 fl (7.5-11.1); MONO % 10.4 % (3.8-10.2); NEUT % 66.9 % (42.8-82.8); PLATELET COUNT 235 10^3/uL (134-434); RBC 3.47 M/mm3 (3.60-5.2); RDW 15.7 % (11.6-15.6)
[2023-02-11] MEDS ORDERED: POTASSIUM CHLORIDE TABS 20 MEQ TABLET.ER (FP) PO ONE (14:00)
[2023-02-11] MEDS ORDERED: amLODIPine BESYLATE 10 MG TABLET (FP) PO ONE (14:00)
[2023-02-11] MEDS ORDERED: MAGNESIUM SULFATE IN WATER 2 GM/50 ML IVPB IVPB ONE (14:00)
[2023-02-11] MEDS ORDERED: ACETAMINOPHEN 325 MG TABLET (FP) PO ONE (14:00)
[2023-02-11] MEDS ORDERED: SODIUM CHLORIDE 250 ML IV ONE (14:00)
[2023-02-11] MEDS ORDERED: DEXAMETHASONE SODIUM PHOSPHATE 20 MG, DIPHENHYDRAMINE 25 MG in SODIUM CHLORIDE 100 ML IVPB ONE (14:00)
[2023-02-11 14:07] LABS: POTASSIUM 3.5 mmol/L (3.5-5.1)
[2023-02-11 14:10] LABS: ALBUMIN 2.9 g/dl (3.4-5.0); BLOOD UREA NITROGEN 18.5 mg/dL (7-18); CALCIUM 10.4 mg/dL (8.5-10.1); MAGNESIUM 2.1 mg/dL (1.8-2.4)
[2023-02-11 14:13] LABS: CREATININE 1.2 mg/dL (0.55-1.3)
[2023-02-11 14:14] LABS: BILIRUBIN,TOTAL 0.5 mg/dL (0.2-1)
[2023-02-11] MEDS ORDERED: DARATUMUMAB-HYALURONIDASE-FIHJ (FASPRO) 15 ML VIAL SQ ONE (15:00)
[2023-02-11] MEDS ORDERED: INSULIN (NOVOLOG) ASPART 100 UNITS/ML 10ML VIAL SQ ONE (15:12)
[2023-02-11 17:35] VITALS: BP 154/62; PULSE 76; RESP 18; TEMP 98.7
== END 2023-02-11 16:30 | disposition home or self-care (01) ==
LOC: JONCCHEMO 12:14
PROVIDERS: ATTEND Internal Medicine Hematology & Oncology
DX: Z51.11 Encounter for antineoplastic chemotherapy (principal); C90.00 Multiple myeloma not having achieved remission
CPT/HCPCS: 36415; 80053; 83615; 83735; 84550; 85025; 96365; 96401; J9144

== ENCOUNTER 2023-02-18 13:47 | Day surgery (SDC) | payer OTHER, BC ==
[2023-02-18 15:57] LABS: BASO % 0.4 % (0-2.0); EOS % 0.3 % (0-4.5); HEMATOCRIT 27.7 % (32.4-45.2); HEMOGLOBIN 9.1 GM/dL (10.7-15.3); LYMPH % 21.7 % (8-40); MCH 29.9 pg (25.7-33.7); MCHC 32.9 g/dl (32.0-36.0); MEAN CELL VOLUME 91.2 fl (80-96); MEAN PLT VOLUME 7.9 fl (7.5-11.1); MONO % 9.8 % (3.8-10.2); NEUT % 67.8 % (42.8-82.8); PLATELET COUNT 224 10^3/uL (134-434); RBC 3.04 M/mm3 (3.60-5.2); RDW 15.4 % (11.6-15.6); WHITE BLOOD COUNT 6.8 K/mm3 (4.0-10.0)
[2023-02-18 16:47] LABS: POTASSIUM 3.3 mmol/L (3.5-5.1)
[2023-02-18 16:49] LABS: CALCIUM 9.5 mg/dL (8.5-10.1)
[2023-02-18 16:50] LABS: ALBUMIN 2.8 g/dl (3.4-5.0); BLOOD UREA NITROGEN 18.1 mg/dL (7-18); MAGNESIUM 1.9 mg/dL (1.8-2.4)
[2023-02-18 16:54] LABS: BILIRUBIN,TOTAL 0.3 mg/dL (0.2-1)
[2023-02-18 17:01] LABS: TOT PROT 7.4 g/dl (6.4-8.2)
[2023-02-18 17:50] VITALS: TEMP 98.5
[2023-02-18 17:56] VITALS: BP 192/85; PULSE 90; RESP 18
== END 2023-02-18 17:50 | disposition home or self-care (01) ==
LOC: JONCCHEMO 13:47 → J7W 13:48 → JONCCHEMO 17:50
PROVIDERS: ATTEND Internal Medicine Hematology & Oncology
PROC: 3E01305 Introduction of Other Antineoplastic into Subcutaneous Tissue, Percutaneous Approach (ICD-10-PCS; principal; 2023-02-18)
PROC: 3E033GC Introduction of Other Therapeutic Substance into Peripheral Vein, Percutaneous Approach (ICD-10-PCS; 2023-02-18)
DX: Z51.11 Encounter for antineoplastic chemotherapy (principal); C90.00 Multiple myeloma not having achieved remission
CPT/HCPCS: 36415; 80053; 83615; 83735; 84550; 85025; 96365; 96401; J9144

== ENCOUNTER 2023-03-04 13:15 | Day surgery (SDC) | payer OTHER, BC ==
[2023-03-04] MEDS ORDERED: oxyCODONE HCL 5 MG TABLET PO ONE (14:15)
[2023-03-04 14:49] LABS: BASO % 0.3 % (0-2.0); EOS % 0.3 % (0-4.5); HEMATOCRIT 29.1 % (32.4-45.2); HEMOGLOBIN 9.7 GM/dL (10.7-15.3); LYMPH % 19.3 % (8-40); MCH 29.9 pg (25.7-33.7); MCHC 33.4 g/dl (32.0-36.0); MEAN CELL VOLUME 89.5 fl (80-96); MEAN PLT VOLUME 7.1 fl (7.5-11.1); MONO % 8.7 % (3.8-10.2); NEUT % 71.4 % (42.8-82.8); PLATELET COUNT 232 10^3/uL (134-434); RBC 3.25 M/mm3 (3.60-5.2); WHITE BLOOD COUNT 5.9 K/mm3 (4.0-10.0)
[2023-03-04 15:00] LABS: POTASSIUM 3.9 mmol/L (3.5-5.1)
[2023-03-04 15:02] LABS: ALBUMIN 2.9 g/dl (3.4-5.0); CALCIUM 9.9 mg/dL (8.5-10.1)
[2023-03-04 15:03] LABS: MAGNESIUM 1.9 mg/dL (1.8-2.4)
[2023-03-04 15:05] LABS: CREATININE 1.2 mg/dL (0.55-1.3); URIC ACID 4.9 mg/dL (2.6-7.2)
[2023-03-04 15:07] LABS: BILIRUBIN,TOTAL 0.3 mg/dL (0.2-1); TOT PROT 8.1 g/dl (6.4-8.2)
[2023-03-04] MEDS ORDERED: INSULIN (NOVOLOG) ASPART 100 UNITS/ML 10ML VIAL SQ ONE (15:12)
[2023-03-04 18:38] VITALS: BP 172/84; PULSE 74; RESP 20; TEMP 98.8
[2023-03-06 17:06] LABS: FREE KAPPA,SERUM 4465.3 mg/L (3.3-19.4)
== END 2023-03-04 17:00 | disposition home or self-care (01) ==
LOC: JONCCHEMO 13:15 → J7W 13:17 → JONCCHEMO 17:00
PROVIDERS: ATTEND Internal Medicine Hematology & Oncology
PROC: 3E01305 Introduction of Other Antineoplastic into Subcutaneous Tissue, Percutaneous Approach (ICD-10-PCS; principal; 2023-03-04)
PROC: 3E033GC Introduction of Other Therapeutic Substance into Peripheral Vein, Percutaneous Approach (ICD-10-PCS; 2023-03-04)
DX: Z51.11 Encounter for antineoplastic chemotherapy (principal); C90.00 Multiple myeloma not having achieved remission
CPT/HCPCS: 36415; 80053; 82232; 82784; 83615; 83735; 83883; 84155; 84165; 84550; 85025; 86335; 96365; 96401; J9144

== ENCOUNTER 2023-03-18 14:02 | Day surgery (SDC) | payer OTHER, BC ==
[2023-03-18 14:39] LABS: BASO % 0.5 % (0-2.0); EOS % 0.3 % (0-4.5); HEMATOCRIT 30.6 % (32.4-45.2); LYMPH % 19.9 % (8-40); MCH 29.8 pg (25.7-33.7); MCHC 32.8 g/dl (32.0-36.0); MEAN PLT VOLUME 7.7 fl (7.5-11.1); MONO % 7.8 % (3.8-10.2); NEUT % 71.5 % (42.8-82.8); PLATELET COUNT 239 10^3/uL (134-434); RBC 3.36 M/mm3 (3.60-5.2); RDW 15.4 % (11.6-15.6); WHITE BLOOD COUNT 6.5 K/mm3 (4.0-10.0)
[2023-03-18 15:12] LABS: POTASSIUM 3.1 mmol/L (3.5-5.1)
[2023-03-18 15:14] LABS: ALBUMIN 2.9 g/dl (3.4-5.0); BLOOD UREA NITROGEN 22.2 mg/dL (7-18); MAGNESIUM 1.8 mg/dL (1.8-2.4)
[2023-03-18] MEDS ORDERED: POTASSIUM CHLORIDE TABS 20 MEQ TABLET.ER (FP) PO SCH (15:15)
[2023-03-18 15:17] LABS: URIC ACID 4.5 mg/dL (2.6-7.2)
[2023-03-18 15:18] LABS: CREATININE 1.2 mg/dL (0.55-1.3)
[2023-03-18 15:19] LABS: BILIRUBIN,TOTAL 0.3 mg/dL (0.2-1); TOT PROT 8.6 g/dl (6.4-8.2)
[2023-03-18] MEDS ORDERED: INSULIN (NOVOLOG) ASPART 100 UNITS/ML 10ML VIAL SQ ONE (15:46)
[2023-03-18] MEDS ORDERED: amLODIPine BESYLATE 5 MG TABLET (FP) PO ONE (16:58)
[2023-03-18 17:00] VITALS: TEMP 98.1
[2023-03-18 17:05] VITALS: BP 200/92; PULSE 70; RESP 18
[2023-03-19 18:07] LABS: FREE KAPPA,SERUM 5019.9 mg/L (3.3-19.4)
[2023-03-20 07:09] LABS: BETA-2-MICROGLOBULIN 2.5 mg/L (0.6-2.4)
[2023-03-21 06:08] LABS: FREE KAP CHN UR 5259.93 mg/L (1.17-86.46); KAPPA LAMBDA RATIO URIN 683.11 (1.83-14.26)
== END 2023-03-18 17:15 | disposition home or self-care (01) ==
LOC: JONCCHEMO 14:02 → J7W 14:04 → JONCCHEMO 17:15
PROVIDERS: ATTEND Internal Medicine Hematology & Oncology
PROC: 3E01305 Introduction of Other Antineoplastic into Subcutaneous Tissue, Percutaneous Approach (ICD-10-PCS; principal; 2023-03-18)
PROC: 3E033GC Introduction of Other Therapeutic Substance into Peripheral Vein, Percutaneous Approach (ICD-10-PCS; 2023-03-18)
PROC: 3E0337Z Introduction of Electrolytic and Water Balance Substance into Peripheral Vein, Percutaneous Approach (ICD-10-PCS; 2023-03-18)
DX: Z51.11 Encounter for antineoplastic chemotherapy (principal); C90.00 Multiple myeloma not having achieved remission
CPT/HCPCS: 36415; 80053; 82232; 82784; 83615; 83735; 83883; 84155; 84165; 84550; 85025; 86335; 96361; 96365; 96367; 96401; J9144

== ENCOUNTER 2023-04-16 14:48 | Day surgery (SDC) | payer OTHER, BC ==
[2023-04-16] MEDS ORDERED: POTASSIUM CHLORIDE TABS 20 MEQ TABLET.ER (FP) PO ONE ×2 (15:00→18:00)
[2023-04-16] MEDS ORDERED: amLODIPine BESYLATE 10 MG TABLET (FP) PO ONE (15:00)
[2023-04-16] MEDS ORDERED: MAGNESIUM SULFATE IN WATER 2 GM/50 ML IVPB IVPB ONE (15:00)
[2023-04-16] MEDS ORDERED: DIPHENHYDRAMINE 25 MG, DEXAMETHASONE INJECTION 20 MG in SODIUM CHLORIDE 100 ML IVPB ONE (15:00)
[2023-04-16] MEDS ORDERED: SODIUM CHLORIDE 250 ML IV ONE (15:00)
[2023-04-16] MEDS ORDERED: ACETAMINOPHEN 325 MG TABLET (FP) PO ONE (15:00)
[2023-04-16] MEDS ORDERED: DIPHENHYDRAMINE 25 MG in SODIUM CHLORIDE 50 ML IVPB ONE (15:00)
[2023-04-16] MEDS ORDERED: oxyCODONE HCL 5 MG TABLET PO ONE (15:00)
[2023-04-16] MEDS ORDERED: DARATUMUMAB-HYALURONIDASE-FIHJ (FASPRO) 15 ML VIAL SQ ONE (15:30)
[2023-04-16 16:01] LABS: POTASSIUM 3.1 mmol/L (3.5-5.1)
[2023-04-16 16:04] LABS: BLOOD UREA NITROGEN 24.3 mg/dL (7-18); CALCIUM 11.4 mg/dL (8.5-10.1); MAGNESIUM 1.4 mg/dL (1.8-2.4)
[2023-04-16 16:08] LABS: CREATININE 1.3 mg/dL (0.55-1.3); URIC ACID 5.2 mg/dL (2.6-7.2)
[2023-04-16 16:09] LABS: BILIRUBIN,TOTAL 0.3 mg/dL (0.2-1); TOT PROT 9.1 g/dl (6.4-8.2)
[2023-04-16] MEDS ORDERED: MAGNESIUM SULF 50% (8.12 MEQ/2 ML-1 GM VIAL) IVPB ONE ×2 (16:43→17:00)
[2023-04-16] MEDS ORDERED: SODIUM CHLORIDE 0.9% 250 ML INFUS.BAG IV ONE (16:43)
[2023-04-16 17:39] LABS: BASO % 0.2 % (0-2.0); EOS % 0.3 % (0-4.5); HEMATOCRIT 26.5 % (32.4-45.2); HEMOGLOBIN 9.2 GM/dL (10.7-15.3); LYMPH % 18.3 % (8-40); MCH 30.5 pg (25.7-33.7); MCHC 34.7 g/dl (32.0-36.0); MEAN CELL VOLUME 87.9 fl (80-96); MEAN PLT VOLUME 7.4 fl (7.5-11.1); MONO % 8.6 % (3.8-10.2); NEUT % 72.6 % (42.8-82.8); PLATELET COUNT 255 10^3/uL (134-434); RBC 3.02 M/mm3 (3.60-5.2); RDW 14.8 % (11.6-15.6); WHITE BLOOD COUNT 7.4 K/mm3 (4.0-10.0)
[2023-04-16 18:36] VITALS: RESP 20; TEMP 98.7
[2023-04-16 18:41] VITALS: BP 169/91; PULSE 103
[2023-04-18 18:09] LABS: FREE KAPPA,SERUM 5903.3 mg/L (3.3-19.4)
[2023-04-20 16:11] LABS: FREE KAP CHN UR Note: mg/L (1.17-86.46); KAPPA LAMBDA RATIO URIN 1783.66 (1.83-14.26)
== END 2023-04-16 19:06 | disposition home or self-care (01) ==
LOC: JONCCHEMO 14:48
PROVIDERS: ATTEND Internal Medicine Hematology & Oncology
PROC: 3E033GC Introduction of Other Therapeutic Substance into Peripheral Vein, Percutaneous Approach (ICD-10-PCS; principal; 2023-04-16)
PROC: 3E01305 Introduction of Other Antineoplastic into Subcutaneous Tissue, Percutaneous Approach (ICD-10-PCS; 2023-04-16)
DX: Z51.11 Encounter for antineoplastic chemotherapy (principal); C90.00 Multiple myeloma not having achieved remission
CPT/HCPCS: 36415; 80053; 82232; 82784; 83615; 83735; 83883; 84155; 84165; 84550; 85025; 86335; 96365; 96366; 96401; J9144